=== PATIENT | male | born 1930 | race Caucasian/White ===

== ENCOUNTER → 2016-04-19 | Outpatient (CLI) | payer OTHER ==
[~2016-04-19] MED LIST: AGG PO; ALL300 PO; ALLO100T PO; AMLO2.5T PO; ATEN-173 PO; ATOR10TA82 PO; AVD5 PO; CILO100T PO; CILO50TA9 PO; DUTA0.5C PO; DUTA1CAP3 PO; ERGO1TAB10 PO; ERGO500037 PO; ESCI10TA17 PO; FURO-85 PO; GABA-113 PO; GABA1CAP4 PO; LPR25 PO; LPT10 PO; LSX20 PO; LXP10 PO; MAGN64TA4 PO; METO25TA56 PO; PANT40TA PO; POTA20TA11 PO; POTA20TA13 PO; PRLSR20 PO; PRT40 PO; SODI325T9 PO; SODIUM BICARBONATE PO; SUCR1TAB29 PO; TRMO115 TOP; VTMD PO
--- NOTE | 2016-04-19 14:58 | DIAGNOSTIC IMAGING REPORT ---
CHEST 2 VIEWS ROUTINE CLINICAL HISTORY: Cough. COMPARISON STUDY: Chest CT July 19, 2012. FINDINGS: Lung volumes are normal. There is no pneumothorax or pleural effusion. No consolidation is identified. Cardiomediastinal silhouette is normal. There is no evidence of pulmonary edema. IMPRESSION: No acute cardiopulmonary findings. Electronically signed by: Kristian Malone M.D. 04/19/2016 2:56 PM Dictated Date/Time: 04/19/2016 2:55 PM
[2016-04-19 17:39] LABS: BASO % 0.1 %; BASO ABS # 0.01 K/uL (0-0.2); COMPLETE YES; HEMATOCRIT 39.1 % (42-52); IG% 0.4 %; LYMPH % 4.4 %; LYMPH ABS # 0.42 K/uL (1.2-3.4); MEAN CELL VOLUME 100.5 fL (80-100); MEAN CORPUSCULAR HEMOGLOBIN 36.2 pg (25-34); MEAN CORPUSCULAR HGB CONC 36.1 g/dl (32-36); MEAN PLATELET VOLUME 10.3 fL (7.4-10.4); MONO % 5.4 %; NEUT % 89.7 %; PLATELET COUNT 210 K/uL (130-400); RED BLOOD COUNT 3.89 M/uL (4.7-6.1)
[2016-04-19 17:53] LABS: BLOOD UREA NITROGEN 56 mg/dl (7-18); BUN/CREATININE RATIO 18.7 (10-20); CALCIUM 8.8 mg/dl (8.5-10.1); CARBON DIOXIDE 13 mmol/L (21-32); CHLORIDE 112 mmol/L (98-107); GLUCOSE 149 mg/dl (70-99); SODIUM 137 mmol/L (136-145)
[2016-04-20 06:38] LABS: ESTIMATED AVERAGE GLUCOSE 131 mg/dl; HA1C FLAG Normal (Normal)
== END | disposition home or self-care (01) ==
LOC: C.LABPVFM 14:28
PROVIDERS: ATTEND Family Medicine
DX: R05 Cough (principal); E11.40 Type 2 diabetes mellitus with diabetic neuropathy, unspecified

== ENCOUNTER → 2016-06-02 | Outpatient (CLI) | payer OTHER ==
[~2016-06-02] MED LIST changes: -ATOR10TA82 PO; +ATOR10TA88 PO
[2016-06-02 13:02] LABS: HEMATOCRIT 36.6 % (42-52); MEAN CELL VOLUME 105.5 fL (80-100); MEAN CORPUSCULAR HEMOGLOBIN 35.2 pg (25-34); MEAN CORPUSCULAR HGB CONC 33.3 g/dl (32-36); MEAN PLATELET VOLUME 9.5 fL (7.4-10.4); PLATELET COUNT 159 K/uL (130-400); RED BLOOD COUNT 3.47 M/uL (4.7-6.1); WHITE BLOOD COUNT 5.41 K/uL (4.8-10.8)
[2016-06-02 13:06] LABS: URINE APPEARANCE CLEAR (CLEAR); URINE BILIRUBIN NEG (NEG); URINE COLOR YELLOW; URINE EPITHELIAL CELL AUTO 0-5 /lpf (0-5); URINE NITRITE NEG (NEG); URINE SPECIFIC GRAVITY 1.001 (1.000-1.030); UROBILINOGEN NEG (NEG)
[2016-06-02 13:07] LABS: MANUAL MICROSCOPIC REQUIRED? NO; REVIEW REQ? NO
[2016-06-02 13:13] LABS: BLOOD UREA NITROGEN 19 mg/dl (7-18); BUN/CREATININE RATIO 13.7 (10-20); CALCIUM 9.2 mg/dl (8.5-10.1); CARBON DIOXIDE 18 mmol/L (21-32); CHLORIDE 110 mmol/L (98-107); GLUCOSE 86 mg/dl (70-99); PHOSPHORUS 3.7 mg/dl (2.5-4.9); POTASSIUM 4.4 mmol/L (3.5-5.1); SODIUM 140 mmol/L (136-145)
[2016-06-02 13:15] LABS: FERRITIN 79.1 ng/ml (8.0-388.0)
[2016-06-02 13:25] LABS: URINE PROTIEN/CREAT RATIO 0.3 (0-0.2); URINE TOTAL PROTEIN 8.7 mg/dl (0-11.9)
== END | disposition home or self-care (01) ==
LOC: C.LABPVFM 06-01 14:02
PROVIDERS: ATTEND Internal Medicine Nephrology
DX: D64.9 Anemia, unspecified (principal); I10 Essential (primary) hypertension; N18.3 Chronic kidney disease, stage 3 (moderate); E55.9 Vitamin D deficiency, unspecified

== ENCOUNTER 2016-06-23 14:43 | Inpatient (IN) | payer OTHER ==
[~2016-06-23] VITALS: Ht 177.8 cm; Wt 81.7 kg
[~2016-06-23 14:43] MED LIST changes: -ALLO100T PO; -CILO100T PO; -DUTA0.5C PO; -DUTA1CAP3 PO; -ERGO500037 PO; -GABA1CAP4 PO; -LPR25 PO; -LPT10 PO; -LSX20 PO; -LXP10 PO; -MAGN64TA4 PO; -METO25TA56 PO; -PANT40TA PO; -POTA20TA13 PO; -PRLSR20 PO; -PRT40 PO; -SODI325T9 PO; -SUCR1TAB29 PO; -TRMO115 TOP; -VTMD PO
[2016-06-23 15:33] LABS: BASO % 0.2 %; BASO ABS # 0.02 K/uL (0-0.2); COMPLETE YES; EOS % 0.8 %; HEMATOCRIT 39.8 % (42-52); IG% 0.2 %; LYMPH % 5.5 %; LYMPH ABS # 0.51 K/uL (1.2-3.4); MEAN CELL VOLUME 103.9 fL (80-100); MEAN CORPUSCULAR HEMOGLOBIN 35.8 pg (25-34); MEAN CORPUSCULAR HGB CONC 34.4 g/dl (32-36); MEAN PLATELET VOLUME 9.9 fL (7.4-10.4); MONO % 10.3 %; PLATELET COUNT 142 K/uL (130-400); RED BLOOD COUNT 3.83 M/uL (4.7-6.1); WHITE BLOOD COUNT 9.22 K/uL (4.8-10.8)
[2016-06-23] MEDS ORDERED: DUTA0.5C PO (15:33)
[2016-06-23] MEDS ORDERED: SODI325T9 PO (15:33)
[2016-06-23] MEDS ORDERED: AGG PO (15:33)
[2016-06-23] MEDS ORDERED: CILO100T PO (15:33)
[2016-06-23] MEDS ORDERED: ERGO500037 PO (15:33)
[2016-06-23] MEDS ORDERED: ALL300 PO (15:33)
[2016-06-23] MEDS ORDERED: PRLSR20 PO (15:35)
[2016-06-23 15:48] LABS: PARTIAL THROMBOPLASTIN RATIO 1.2; PROTHROMBIN TIME (PATIENT) 10.6 SECONDS (9.0-12.0)
[2016-06-23 15:49] LABS: BUN/CREATININE RATIO 14.9 (10-20); CALCIUM 8.6 mg/dl (8.5-10.1); CREATININE 1.7 mg/dl (0.60-1.40); POTASSIUM 4.1 mmol/L (3.5-5.1)
--- NOTE | 2016-06-23 15:55 | DIAGNOSTIC IMAGING REPORT ---
CHEST ONE VIEW PORTABLE CLINICAL HISTORY: Atypical chest pain COMPARISON STUDY: No previous studies for comparison. FINDINGS: The patient has taken a suboptimal inspiration. The heart is at the upper limits of normal in size. There are bibasal airspace opacities, hypoventilatory versus inflammatory.[ No pleural effusions are visualized IMPRESSION: Bibasal airspace opacities, atelectatic versus inflammatory. Clinical and radiographic follow-up is recommended. Electronically signed by: Jorge Quintana M.D. 06/23/2016 3:54 PM Dictated Date/Time: 06/23/2016 3:53 PM
--- NOTE | 2016-06-23 16:52 | DIAGNOSTIC IMAGING REPORT ---
CHEST 2 VIEWS ROUTINE CLINICAL HISTORY: Chest pain. Possible pneumonia. COMPARISON STUDY: AP portable study dated 06/23/2016 FINDINGS: The cardiac and mediastinal contours are normal. The patient has taken a better inspiratory effort. There is been resolution of the bibasal airspace opacities. There is no focal pulmonary consolidation. There is no failure. There are no pleural effusions. The superior aspect of the aortic stent is visualized.[ IMPRESSION: No active disease in the chest. Electronically signed by: Jorge Quintana M.D. 06/23/2016 4:50 PM Dictated Date/Time: 06/23/2016 4:50 PM
--- NOTE | 2016-06-23 19:23 | EMERGENCY ROOM VISIT NOTE ---
History Report prepared by Radibjaciel: María Duron Under the Supervision of: Dr. Tyrone Newell M.D. First contact with patient: 15:01 Chief Complaint: CHEST PAIN Stated Complaint: CHEST PAIN Nursing Triage Summary: pt presents for eval of chest pain, now pain free. History of Present Illness The patient is a 86 year old male who presents to the Emergency Room with complaints of resolved chest pain that first occurred 2 nights ago. He was brought to the ED via EMS and is accompanied by family. He reports he experienced chest pain last night and the night before. The pain was located in the middle of his chest each time he experienced it and he describes it as feeling like "pressure". The patient states he woke up with the pain around 0900 this morning and it lasted until approximately 1200, so he decided to call an ambulance. He was given Aspirin in the field and reports it provided minor relief. He is pain free here in the ED. The patient has a history of diabetes and hypertension and is on daily medication for both conditions. He denies ever experiencing an SD in the past. He denies any current shortness of breath, abdominal pain or weakness or numbness in his arms or legs. He notes he has been fighting cold symptoms for approximately "4 months". He saw a local clinic recently and was given antibiotics and steroids, which have provided some relief. He still has the occasional cough and congestion. His primary care physician is located at [facility]. Source of History: patient Onset: 2 nights ago Position: chest Quality: pressure Timing: resolved Modifying Factors (Relieving): other (Aspirin) Associated Symptoms: + cough, No SOB, No abdominal pain, No numbness ( numbness in arms or legs), No weakness (weakness in arms or legs) Review of Systems See HPI for pertinent positives & negatives. A total of 10 systems reviewed and were otherwise negative. Past Medical & Surgical Medical Problems: (1) Benign essential hypertension (2) Carcinoma of colon (3) Diabetes mellitus type 2 (4) Gastroesophageal reflux disease (5) Glaucoma (6) Gout (7) Hyperlipidemia (8) Peripheral vascular disease Social History Smoking Status: Former Smoker Alcohol Use: none Drug Use: none Marital Status: Housing Status: lives with family Occupation Status: retired Current/Historical Medications Scheduled Amlodipine (Norvasc), 2.5 MG PO QAM Atenolol (Tenormin), 25 MG PO QAM Atorvastatin (Lipitor), 10 MG PO QAM Cilostazol (Pletal), 100 MG PO BID Dipyridamole/Aspirin (Aggrenox 25-200 mg), 1 CAP PO BID Dutasteride (Avodart), 0.5 MG PO QAM Ergocalciferol (Vitamin D 31769 Unit), 50,000 INTER.UNIT PO MONTHLY Escitalopram (Lexapro), 10 MG PO QAM Furosemide (Lasix), 20 MG PO 2XWK Gabapentin (Neurontin), 300 MG PO QPM Omeprazole (Prilosec), 20 MG PO BID Potassium Chloride Microencaps (Potassium Chloride Cr), 20 MEQ PO QAM Sodium Bicarbonate (Antacid) (Sodium Bicarbonate), 325 MG PO QAM Scheduled PRN Allopurinol (Allopurinol), 300 MG PO DAILY PRN for Gout Flare Up Allergies Coded Allergies: Amoxicillin (Verified Allergy, Severe, HIVES; ANGIOEDEMA, 04/04/15) Lisinopril (Verified Allergy, Mild, HIVES, 04/04/15) Penicillins (Verified Allergy, Mild, HIVES, 04/04/15) Physical Exam Vital Signs Date Time Temp Pulse Resp B/P Pulse Ox O2 Delivery O2 Flow Rate FiO2 06/23/16 19:09 89 06/23/16 18:10 86 18 156/79 97 Room Air 06/23/16 16:22 84 18 141/84 96 Room Air 06/23/16 15:02 91 06/23/16 14:51 36.4 92 18 125/65 98 Room Air Physical Exam Constitutional: Vital signs reviewed. Eyes: Pupils are equal round reactive to light. Conjunctiva are noninjected. ENT: Pharynx is clear without erythema or exudate. Mucous membranes are moist. Neck supple without meningeal signs. Respiratory: Clear to auscultation bilaterally. Breath sounds are equal bilaterally. Cardiovascular: Regular rate and rhythm. No rubs or gallops. GI: Soft, nondistended and nontender. Bowel sounds are present. Musculoskeletal: No peripheral edema. No lower extremity tenderness. Integumentary: No cyanosis. Neurological: The patient is awake and alert. No focal deficits. Psychiatric: Normal affect. Medical Decision & Procedures ER Provider Diagnostic Interpretation: These X-Rays were reviewed and interpreted by myself and the radiologist. CHEST ONE VIEW PORTABLE CLINICAL HISTORY: Atypical chest pain COMPARISON STUDY: No previous studies for comparison. FINDINGS: The patient has taken a suboptimal inspiration. The heart is at the upper limits of normal in size. There are bibasal airspace opacities, hypoventilatory versus inflammatory.[ No pleural effusions are visualized IMPRESSION: Bibasal airspace opacities, atelectatic versus inflammatory. Clinical and radiographic follow-up is recommended. Electronically signed by: Jorge Quintana M.D. 06/23/2016 3:54 PM CHEST 2 VIEWS ROUTINE CLINICAL HISTORY: Chest pain. Possible pneumonia. COMPARISON STUDY: AP portable study dated 06/23/2016 FINDINGS: The cardiac and mediastinal contours are normal. The patient has taken a better inspiratory effort. There is been resolution of the bibasal airspace opacities. There is no focal pulmonary consolidation. There is no failure. There are no pleural effusions. The superior aspect of the aortic stent is visualized. IMPRESSION: No active disease in the chest. Electronically signed by: Jorge Quintana M.D. 06/23/2016 4:50 PM Laboratory Results 06/23/16 15:00 Red Blood Count 3.83, Mean Corpuscular Volume 103.9, Mean Corpuscular Hemoglobin 35.8, Mean Corpuscular Hemoglobin Concent 34.4, Mean Platelet Volume 9.9, Neutrophils (%) (Auto) 83.0, Lymphocytes (%) (Auto) 5.5, Monocytes (%) ( Auto) 10.3, Eosinophils (%) (Auto) 0.8, Basophils (%) (Auto) 0.2, Neutrophils # (Auto) 7.65, Lymphocytes # (Auto) 0.51, Monocytes # (Auto) 0.95, Eosinophils # ( Auto) 0.07, Basophils # (Auto) 0.02 06/23/16 15:00 Test 06/23/16 15:00 06/23/16 15:31 06/23/16 17:40 White Blood Count 9.22 K/uL (4.8-10.8) Red Blood Count 3.83 M/uL (4.7-6.1) Hemoglobin 13.7 g/dL (14.0-18.0) Hematocrit 39.8 % (42-52) Mean Corpuscular Volume 103.9 fL (80-100) Mean Corpuscular Hemoglobin 35.8 pg (25-34) Mean Corpuscular Hemoglobin Concent 34.4 g/dl (32-36) Platelet Count 142 K/uL (130-400) Mean Platelet Volume 9.9 fL (7.4-10.4) Neutrophils (%) (Auto) 83.0 % Lymphocytes (%) (Auto) 5.5 % Monocytes (%) (Auto) 10.3 % Eosinophils (%) (Auto) 0.8 % Basophils (%) (Auto) 0.2 % Neutrophils # (Auto) 7.65 K/uL (1.4-6.5) Lymphocytes # (Auto) 0.51 K/uL (1.2-3.4) Monocytes # (Auto) 0.95 K/uL (0.11-0.59) Eosinophils # (Auto) 0.07 K/uL (0-0.5) Basophils # (Auto) 0.02 K/uL (0-0.2) RDW Standard Deviation 57.6 fL (36.4-46.3) RDW Coefficient of Variation 15.1 % (11.5-14.5) Immature Granulocyte % (Auto) 0.2 % Immature Granulocyte # (Auto) 0.02 K/uL (0.00-0.02) Prothrombin Time 10.6 SECONDS (9.0-12.0) Prothromb Time International Ratio 1.0 (0.9-1.1) Activated Partial Thromboplast Time 32.2 SECONDS (21.0-31.0) Partial Thromboplastin Ratio 1.2 Anion Gap 11.0 mmol/L (3-11) Est Creatinine Clear Calc Drug Dose 33.9 ml/min Estimated GFR () 41.7 Estimated GFR (Non- 36.0 BUN/Creatinine Ratio 14.9 (10-20) Calcium Level 8.6 mg/dl (8.5-10.1) Bedside Troponin I 0.000 ng/ml (0-0.045) Bedside Glucose 118 mg/dl (70-99) Laboratory results as reviewed by me. ECG Indication: chest pain Rate (beats per minute): 91 Rhythm: normal sinus Findings: no acute ischemic change, no ectopy ED Course 1503: The patient was evaluated in room C11. A complete history and physical exam was performed. 1610: I reevaluated the patient. He states he has no chest pain. I discussed his test results and recommended he remain in the hospital for further evaluation and management. He verbalized complete understanding and agreement. He does state he has a history of kidney issues and follows with Dr. Huizar in Nephrology. 1754: I discussed the patients case with Dr. Ferguson [facility] Hospitalist. The patient will be further evaluated. 1755: I updated the patient and let him know his second X-Ray is negative. Medical Decision This is an 86-year-old male who presents with chest pain. Differential diagnosis includes unstable angina, SD, GERD, pneumonia, pleurisy. I did perform a limited focused review of portions of the patient's old chart on the electronic medical record. The patient has had no recent pertinent visits to this hospital. I did evaluate the patient as noted above. IV access was established. The patient was placed on a continuous cardiac monitor technician. I did order and personally review the patient's 12-lead EKG and chest x-ray as described above. His 12- lead EKG does not demonstrate any acute ischemia. His chest x-ray was questionable for atelectasis versus inflammation. I did therefore repeat the chest x-ray and obtain PA and lateral films which showed no acute process. I did order and review the patient's blood work as noted in the electronic medical record. Troponin is negative. I did reassess the patient. He is having no complaints at this time. I did discuss the test results with him. I did recommend hospitalization for repeat cardiac enzymes and further evaluation. I did discuss the case with the hospitalist and employment case manager. Consults Time Called: 1615 Consulting Physician: Dr. Ferguson [facility] Hospitalist Returned Call: [phone] I discussed the patients case with Dr. Ferguson [facility] Hospitalist. The patient will be further evaluated. Impression Primary Impression: Acute chest pain Additional Impression: Elevated serum creatinine Scribe Attestation The scribe's documentation has been prepared under my direct and personally reviewed by me in its entirety. I confirm that the note above accurately reflects all work, treatment, procedures, and medical decision making performed by me. Departure Information Dispostion Being Evaluated By Hospitalist Referrals Dallas Jacobo M.D. (PCP) Patient Instructions My [facility] Problem Qualifiers
[2016-06-23] MEDS ORDERED: POLYETHYLENE (MIRALAX) 17 GM PACK PO PRN (19:45)
[2016-06-23] MEDS ORDERED: NITROGLYCERIN 0.4 MG SL PER TAB CHARGE SL PRN (19:45)
[2016-06-23] MEDS ORDERED: MAGNESIUM HYDROXIDE SUSP 30 ML UDC PO PRN (19:45)
[2016-06-23] MEDS ORDERED: ALLOPURINOL 300 MG TAB PO PRN (19:45)
[2016-06-23] MEDS ORDERED: MoRPHine SULFATE 2 MG/ML CARP IV PRN (19:45)
[2016-06-23] MEDS ORDERED: ALUMINUM/MAGNESIUM/SIMETH (MAALOX MAX) 30 ML UDC PO PRN (19:45)
[2016-06-23] MEDS ORDERED: ONDANSETRON INJ 2 MG/ML 2 ML VIAL IV PRN (19:45)
[2016-06-23] MEDS ORDERED: ACETAMINOPHEN 325 MG TAB PO PRN (19:45)
--- NOTE | 2016-06-23 20:09 | History and Physical ---
History & Physical Date & Time of Service: Jun 23, 2016 at 19:48 Chief Complaint: Chest Pain Primary Care Physician: Dallas Jacobo M.D. History of Present Illness Source: patient 86 y/o M w/Hx peripheral vascular disease, CKD 3, HTN, HPL. Presents with 2 episodes of central CP lasting 1-2 hours on subsequent evenings. Pt denies accompanying SOB, N/V, diaphoresis light-headedness or radiation of the pain. He denies a history of CAD/VA or angina. The pt also states that he has severe diarrhea for 2 days without abdominal pain although he suspected his CP may be more GI/epigastric in nature. He recently completed a course of Zithromax for a URI and states that he still has a persistent productive cough. He denies fevers. Past Medical/Surgical History Medical Problems: (1) Benign essential hypertension Status: Chronic (2) Carcinoma of colon Status: Chronic (3) Diabetes mellitus type 2 Status: Chronic (4) Gastroesophageal reflux disease Status: Chronic (5) Glaucoma Status: Chronic (6) Gout Status: Chronic (7) Hyperlipidemia Status: Chronic (8) Peripheral vascular disease Status: Chronic - history of femoral revascularization Family History Reviewed - noncontributory Social History Smoking Status: Former Smoker Alcohol Use: 2-3 beers daily Drug Use: none Marital Status: Housing status: lives alone Occupational Status: retired Immunizations History of Influenza Vaccine: Yes Influenza Vaccine Date: Feb 14, 2012 History of Tetanus Vaccine?: Yes Tetanus Immunization Date: Jun 30, 2012 History of Pneumococcal: Yes Pneumococcal Date: Jan 13, 2010 History of Hepatitis B Vaccine: No Multi-Drug Resistant Organisms History of MDRO: No Allergies Coded Allergies: Amoxicillin (Verified Allergy, Severe, HIVES; ANGIOEDEMA, 04/04/15) Lisinopril (Verified Allergy, Mild, HIVES, 04/04/15) Penicillins (Verified Allergy, Mild, HIVES, 04/04/15) Home Medications Scheduled Amlodipine (Norvasc), 2.5 MG PO QAM Atenolol (Tenormin), 25 MG PO QAM Atorvastatin (Lipitor), 10 MG PO QAM Cilostazol (Pletal), 100 MG PO BID Dipyridamole/Aspirin (Aggrenox 25-200 mg), 1 CAP PO BID Dutasteride (Avodart), 0.5 MG PO QAM Ergocalciferol (Vitamin D 10681 Unit), 50,000 INTER.UNIT PO MONTHLY Escitalopram (Lexapro), 10 MG PO QAM Furosemide (Lasix), 20 MG PO 2XWK Gabapentin (Neurontin), 300 MG PO QPM Omeprazole (Prilosec), 20 MG PO BID Potassium Chloride Microencaps (Potassium Chloride Cr), 20 MEQ PO QAM Sodium Bicarbonate (Antacid) (Sodium Bicarbonate), 325 MG PO QAM Scheduled PRN Allopurinol (Allopurinol), 300 MG PO DAILY PRN for Gout Flare Up Review of Systems Constitutional: No chills, No fever, No sweats Eyes: No eye pain, No worsening of vision ENT: No hearing loss, No nasal symptoms, No unusual epistaxis Respiratory: + cough, + sputum, No dyspnea at rest, No dyspnea on exertion, No shortness of breath, No wheezing Cardiovascular: + chest pain, No PND, No orthopnea Abdomen: + diarrhea, No nausea, No pain, No vomiting Musculoskeletal: No joint pain, No muscle pain Genitourinary - Male: No dysuria, No hematuria, No urinary frequency, No urinary urgency Neurologic: No memory loss, No paralysis, No weakness Psychiatric: No depression symptoms Endocrine: No fatigue Hematologic / Lymphatic: No abnormal bleeding/bruising Integumentary: No rash Allergic / Immunologic: No environmental allergies Physical Exam Vital Signs Date Time Temp Pulse Resp B/P Pulse Ox O2 Delivery O2 Flow Rate FiO2 06/23/16 19:43 83 18 151/72 98 Room Air 06/23/16 19:09 89 06/23/16 18:10 86 18 156/79 97 Room Air 06/23/16 16:22 84 18 141/84 96 Room Air 06/23/16 15:02 91 06/23/16 14:51 36.4 92 18 125/65 98 Room Air General Appearance: WD/WN, no apparent distress Head: normocephalic, atraumatic Eyes: normal inspection, PERRL, EOMI ENT: normal ENT inspection, hearing grossly normal, TMs normal, pharynx normal Neck: supple, no JVD Respiratory/Chest: chest non-tender, lungs clear, normal breath sounds, no respiratory distress, no accessory muscle use Cardiovascular: regular rate, rhythm, no edema, no gallop, no JVD, no murmur, normal peripheral pulses Abdomen/GI: normal bowel sounds, non tender, soft Back: normal inspection, no CVA tenderness Extremities/Musculoskelatal: no calf tenderness, + pedal edema, + pertinent finding (B/L edema and chronic skin changes present ) Neurologic/Psych: coil winder II-XII nml as tested, no motor/sensory deficits, alert, normal mood/affect, oriented x 3 Skin: + pertinent finding (erythema of lower extrems - chronic) Diagnostics Laboratory Results Results Past 24 Hours Test 06/23/16 15:00 06/23/16 15:31 06/23/16 17:40 Range/Units White Blood Count 9.22 4.8-10.8 K/uL Red Blood Count 3.83 4.7-6.1 M/uL Hemoglobin 13.7 14.0-18.0 g/dL Hematocrit 39.8 42-52 % Mean Corpuscular Volume 103.9 80-100 fL Mean Corpuscular Hemoglobin 35.8 25-34 pg Mean Corpuscular Hemoglobin Concent 34.4 32-36 g/dl Platelet Count 142 130-400 K/uL Mean Platelet Volume 9.9 7.4-10.4 fL Neutrophils (%) (Auto) 83.0 % Lymphocytes (%) (Auto) 5.5 % Monocytes (%) (Auto) 10.3 % Eosinophils (%) (Auto) 0.8 % Basophils (%) (Auto) 0.2 % Neutrophils # (Auto) 7.65 1.4-6.5 K/uL Lymphocytes # (Auto) 0.51 1.2-3.4 K/uL Monocytes # (Auto) 0.95 0.11-0.59 K/uL Eosinophils # (Auto) 0.07 0-0.5 K/uL Basophils # (Auto) 0.02 0-0.2 K/uL RDW Standard Deviation 57.6 36.4-46.3 fL RDW Coefficient of Variation 15.1 11.5-14.5 % Immature Granulocyte % (Auto) 0.2 % Immature Granulocyte # (Auto) 0.02 0.00-0.02 K/uL Prothrombin Time 10.6 9.0-12.0 SECONDS Prothromb Time International Ratio 1.0 0.9-1.1 Activated Partial Thromboplast Time 32.2 21.0-31.0 SECONDS Partial Thromboplastin Ratio 1.2 Sodium Level 142 136-145 mmol/L Potassium Level 4.1 3.5-5.1 mmol/L Chloride Level 115 98-107 mmol/L Carbon Dioxide Level 16 21-32 mmol/L Anion Gap 11.0 3-11 mmol/L Blood Urea Nitrogen 25 7-18 mg/dl Creatinine 1.70 0.60-1.40 mg/dl Est Creatinine Clear Calc Drug Dose 33.9 ml/min Estimated GFR () 41.7 Estimated GFR (Non- 36.0 BUN/Creatinine Ratio 14.9 10-20 Random Glucose 122 70-99 mg/dl Calcium Level 8.6 8.5-10.1 mg/dl Bedside Troponin I 0.000 0-0.045 ng/ml Bedside Glucose 118 70-99 mg/dl CXR normal EKG NSR - L axis Impression Assessment and Plan 86 y/o M w/Hx peripheral vascular disease, CKD 3, HTN, HPL. Presents with 2 episodes of central CP lasting 1-2 hours on subsequent evenings. Pt denies accompanying SOB, N/V, diaphoresis light-headedness or radiation of the pain. He denies a history of CAD/VA or angina. The pt also states that he has severe diarrhea for 2 days without abdominal pain although he suspected his CP may be more GI/epigastric in nature. He recently completed a course of Zithromax for a URI and states that he still has a persistent productive cough. He denies fevers. 1) CP - EKG and trop initial WNL - trop x 3 - monitor on telemetry - cont ASA, Statin, B toñito - will also treat for GERD - can be referred for outpt stress if rules out as he likely has come CAD considering his peripheral disease. 2) CKD - creat is stable 3) HTN - Cont Atenolol 4) Diarrhea - recently completed an antibiotic course so we will obtain a C- diff toxin study 5) PVD - cont Pletal, ASA, statin Full code - heparin prophylaxis Total time for this admit including review of labs, meds, EKG, records - discussion with pt and ER attending - 33 min Level of Care Telemetry Resuscitation Status FULL RESUSCITATION VTE Prophylaxis VTE Risk Assessment Done? Y/N: Yes Risk Level: Moderate Given or contraindicated: Unfractionated heparin SQ
[2016-06-23] MEDS ORDERED: IV FLUIDS COMPLETED PRN (20:15)
[2016-06-23] MEDS ORDERED: FAMOTIDINE 20 MG TAB PO ONE (21:00)
[2016-06-23 21:12] VITALS: BP 162/69; PULSE 84; TEMP 36.5; O2SAT 96; Ht 177.8 cm; Wt 81.7 kg
[2016-06-23] MEDS: CILOSTAZOL 100 MG TAB PO SCH (21:52)
[2016-06-23] MEDS: DIPYRIDAMOLE/ASPIRIN CAP PO SCH (21:52)
[2016-06-23] MEDS: GABAPENTIN 300 MG CAP PO SCH (21:53)
[2016-06-23] MEDS: PANTOprazole SOD 40 MG TAB PO SCH (21:53)
[2016-06-23] MEDS: HEPARIN SOD 5000 UNIT/0.5 ML CARP SQ SCH (21:54)
[2016-06-23 23:20] VITALS: BP 155/77; PULSE 90; TEMP 36.6; O2SAT 97
[2016-06-24] VITALS (12 sets, daily range): BP systolic 94–162; BP diastolic 52–86; PULSE 67–86; TEMP 36.3–37.1; O2SAT 95–98
[2016-06-24] MEDS: HEPARIN SOD 5000 UNIT/0.5 ML CARP SQ SCH ×3 (06:16→22:05)
[2016-06-24] MEDS: DIPYRIDAMOLE/ASPIRIN CAP PO SCH ×2 (08:35→20:35)
[2016-06-24] MEDS: PANTOprazole SOD 40 MG TAB PO SCH ×2 (08:35→20:35)
[2016-06-24] MEDS: SODIUM BICARBONATE 650 MG TAB PO SCH (08:36)
[2016-06-24] MEDS: ASPIRIN 81 MG ECTAB PO SCH (08:37)
[2016-06-24] MEDS: CILOSTAZOL 100 MG TAB PO SCH ×2 (08:37→20:36)
[2016-06-24] MEDS: FAMOTIDINE 20 MG TAB PO SCH (08:37)
[2016-06-24] MEDS: ATORVASTATIN 10 MG TAB PO SCH (08:38)
[2016-06-24] MEDS: ESCITALOPRAM OXALATE 10 MG TAB PO SCH (08:38)
[2016-06-24] MEDS: POTASSIUM CHLORIDE 20 MEQ TABCR PO SCH (08:38)
[2016-06-24] MEDS: AMLODIPINE BESYLATE 5 MG TAB PO SCH (08:38)
--- NOTE | 2016-06-24 08:53 | Cardiology Consultation ---
Cardiology Consultation Date of Consultation: Jun 24, 2016. Requesting Physician: Dr. Gaitan Reason for Consultation: AV block Pt evaluation today including: conversation w/ patient, physical exam, lab review, review of studies, review of inpatient medication list History of Present Illness This is an 86-year-old male who has a history of colon cancer, peripheral vascular disease as well as hypertension and presented with chest discomfort. He does not have a history of known coronary artery disease. He describes 2 nights in a row having chest discomfort occurring while in bed, he describes a substernal chest heaviness and pressure lasting a total of about 3 hours prior to admission. He has not had these symptoms before and does not get them with exertion. Cardiac enzymes 2 here are negative. He was observed on telemetry to have periods of second degree AV block. He does take atenolol 25 mg daily at home and is on it here, as well as amlodipine. I discussed symptoms of bradycardia with him and he does describe momentary lightheadedness at times, this is been going on for some time and could represent transient AV block. He has never had presyncope or syncope and these are quite brief. He also describes orthostatic symptoms, when he stands up he gets a little bit lightheaded and has to stand still for a moment to get his bearings. He also uses a walker following his colon surgery. Past Medical/Surgical History (1) Benign essential hypertension (2) Diabetes mellitus type 2 (3) Gastroesophageal reflux disease (4) Hyperlipidemia (5) Lower gastrointestinal hemorrhage (6) Glaucoma (7) Gout (8) Peripheral vascular disease (9) Carcinoma of colon Social History Smoking Status: Never Smoker History of Alcohol Use: Yes (2-3 beers/day) Review of Systems Constitutional: No fever, No weakness, No weight loss Respiratory: No cough, No dyspnea on exertion, No shortness of breath, No wheezing Cardiac: + chest pain, + problem reported (transient lightheadedness, orthostatic symptoms), + see HPI, No PND, No edema, No orthopnea, No palpitations Abdomen: No GI bleeding, No diarrhea, No nausea, No pain, No vomiting Male : No nocturia more than once/night, No sexual dysfunction, No slowing stream, No urinary frequency Neurologic: No balance problems, No numbness/tingling, No paralysis, No weakness Heme: No abnormal bleeding/bruising, No clotting problems Endo: No fatigue Skin: No problem reported All Other Systems: Reviewed and Negative Allergies Coded Allergies: Amoxicillin (Verified Allergy, Severe, HIVES; ANGIOEDEMA, 04/04/15) Lisinopril (Verified Allergy, Mild, HIVES, 04/04/15) Penicillins (Verified Allergy, Mild, HIVES, 04/04/15) Medications Current Inpatient Medications Medications (Trade) Dose Ordered Sig/Hugo Route Start Time Stop Time Status Last Admin Dose Admin Allopurinol (Zyloprim Tab) 300 mg DAILY PRN PO 06/23/16 19:45 07/23/16 19:44 Amlodipine Besylate (Norvasc Tab) 2.5 mg QAM PO 06/24/16 09:00 07/24/16 08:59 Atenolol (Tenormin Tab) 25 mg QAM PO 06/24/16 09:00 07/24/16 08:59 Atorvastatin Calcium (Lipitor Tab) 10 mg QAM PO 06/24/16 09:00 07/24/16 08:59 Dipyridamole/ Aspirin (Aggrenox 200MG/ 25MG Cap) 1 cap BID PO 06/23/16 21:00 07/23/16 20:59 06/23/16 21:52 1 CAP Escitalopram Oxalate (Lexapro Tab) 10 mg QAM PO 06/24/16 09:00 07/24/16 08:59 Gabapentin (Neurontin Cap) 300 mg QPM PO 06/23/16 21:00 07/23/16 20:59 06/23/16 21:53 300 MG Potassium Chloride (Klor-Con Tab) 20 meq QAM PO 06/24/16 09:00 07/24/16 08:59 Miscellaneous Information (Order Awaiting Action) 1 ea QS N/A 06/24/16 00:00 07/24/16 00:00 Pantoprazole Sodium (Protonix Tab) 40 mg BID PO 06/23/16 21:00 07/23/16 20:59 06/23/16 21:53 40 MG Sodium Bicarbonate (Sodium Bicarbonate Tab) 325 mg QAM PO 06/24/16 09:00 07/24/16 08:59 Heparin Sodium (Porcine) (Heparin Sq 5000 Unit/0.5ml) 5,000 unit Q8 SQ 06/23/16 22:00 07/23/16 21:59 06/24/16 06:16 5,000 UNIT Acetaminophen (Tylenol Tab) 650 mg Q4H PRN PO 06/23/16 19:45 07/23/16 19:44 Al Hydrox/Mg Hydrox/Simethicone (Maalox Max Susp) 15 ml Q4H PRN PO 06/23/16 19:45 07/23/16 19:44 Magnesium Hydroxide (Milk Of Magnesia Susp) 30 ml Q12H PRN PO 06/23/16 19:45 07/23/16 19:44 Ondansetron HCl (Zofran Inj) 4 mg Q6H PRN IV 06/23/16 19:45 07/23/16 19:44 Nitroglycerin (Nitrostat Tab) 0.4 mg UD PRN SL 06/23/16 19:45 07/23/16 19:44 Morphine Sulfate (MoRPHine SULFATE INJ) 2 mg Q30M PRN IV 06/23/16 19:45 07/07/16 19:44 Polyethylene (Miralax Powder Packet) 17 gm DAILY PRN PO 06/23/16 19:45 07/23/16 19:44 Miscellaneous (Iv Fluids Completed) 1 ea PRN PRN N/A 06/23/16 20:15 06/23/17 20:14 Cilostazol (Pletal Tab) 100 mg BID PO 06/23/16 21:00 07/23/16 20:59 06/23/16 21:52 100 MG Famotidine (Pepcid Tab) 20 mg QAM PO 06/24/16 09:00 07/24/16 08:59 Aspirin (Ecotrin Tab) 81 mg DAILY PO 06/24/16 09:00 07/24/16 08:59 Physical Exam Vital Signs Past 12 Hours Date Time Temp Pulse Resp B/P Pulse Ox O2 Delivery O2 Flow Rate FiO2 06/24/16 07:50 37.1 86 17 161/86 96 Room Air 06/24/16 05:26 36.8 80 18 135/66 96 Room Air 06/24/16 04:15 96 Room Air 06/24/16 00:00 96 Room Air 06/23/16 23:20 36.6 90 20 155/77 97 Room Air 06/23/16 21:12 36.5 84 18 162/69 96 Room Air Constitutional: General Apperance: heathly-appearing Level of Distress: NAD Psychiatric: Mental Status: active & alert Head: normocephalic Eyes: EOM: EOMI ENMT: normal ENT inspection, hearing grossly normal Neck: supple, no masses Lungs: Respiratory effort: no dyspnea, good air movement Auscultation: breath sounds normal, no wheezing Cardiovascular: Heart Auscultation: RRR, no murmurs, no rubs, no gallops Peripheral Pulses: Bruits: none appreciated Abdomen: Bowel Sounds: normal Inspection & Palpation: soft, no tenderness, guarding & rebound, no masses Musculoskeletal: normal strength (5/5 throughout) Extremities: no edema Neurologic: Cranial Nerves: grossly intact Sensation: grossly intact Data Laboratory Results: Last 24 Hours Test 06/23/16 15:00 06/23/16 15:31 06/23/16 17:40 06/23/16 23:05 White Blood Count 9.22 K/uL Red Blood Count 3.83 M/uL Hemoglobin 13.7 g/dL Hematocrit 39.8 % Mean Corpuscular Volume 103.9 fL Mean Corpuscular Hemoglobin 35.8 pg Mean Corpuscular Hemoglobin Concent 34.4 g/dl Platelet Count 142 K/uL Mean Platelet Volume 9.9 fL Neutrophils (%) (Auto) 83.0 % Lymphocytes (%) (Auto) 5.5 % Monocytes (%) (Auto) 10.3 % Eosinophils (%) (Auto) 0.8 % Basophils (%) (Auto) 0.2 % Neutrophils # (Auto) 7.65 K/uL Lymphocytes # (Auto) 0.51 K/uL Monocytes # (Auto) 0.95 K/uL Eosinophils # (Auto) 0.07 K/uL Basophils # (Auto) 0.02 K/uL RDW Standard Deviation 57.6 fL RDW Coefficient of Variation 15.1 % Immature Granulocyte % (Auto) 0.2 % Immature Granulocyte # (Auto) 0.02 K/uL Prothrombin Time 10.6 SECONDS Prothromb Time International Ratio 1.0 Activated Partial Thromboplast Time 32.2 SECONDS Partial Thromboplastin Ratio 1.2 Sodium Level 142 mmol/L Potassium Level 4.1 mmol/L Chloride Level 115 mmol/L Carbon Dioxide Level 16 mmol/L Anion Gap 11.0 mmol/L Blood Urea Nitrogen 25 mg/dl Creatinine 1.70 mg/dl Est Creatinine Clear Calc Drug Dose 33.9 ml/min Estimated GFR () 41.7 Estimated GFR (Non- 36.0 BUN/Creatinine Ratio 14.9 Random Glucose 122 mg/dl Calcium Level 8.6 mg/dl Bedside Troponin I 0.000 ng/ml Bedside Glucose 118 mg/dl Troponin I < 0.015 ng/ml Test 06/24/16 05:10 Troponin I < 0.015 ng/ml EKG: Sinus rhythm with first-degree AV block. Telemetry reviewed: Sinus rhythm with 2 episodes of 2-1 AV block, this may be AV sonja although I do not see other Wenkebach second degree AV block therefore it is possible this represents Mobitz 2 AV block. No significant pauses or severe bradycardia. Assessment & Plan #1. Chest discomfort: Although the description of his chest discomfort is compatible with myocardial ischemia the duration and mode of onset (occurring at night) with no evidence of electrocardiographic or chemical findings to suggest ischemia I suspect this is not cardiac in nature. Possibly gastrointestinal. I would continue to observe without invasive evaluation. We could do a stress test but that may be misleading. #2. Second degree AV block: Twice on telemetry monitoring he had periods of 2-1 AV block. He does a baseline first degree AV block on electrocardiography. This is consistent with AV sonja conduction disease, although I'm not sure it is symptomatic but he does have momentary lightheadedness at times but also has orthostatic symptoms. I would like to discontinue his beta toñito (he has no clear indication for it with negative cardiac enzymes). Amlodipine can do this, and if he continues to do it on amlodipine we may want to consider discontinuing that but he needs treatment for his hypertension. It is possible he will need a pacemaker but I'm not sure at this time that it is indicated. If his AV block resolves and he continues to have momentary lightheadedness we probably need to perform some type of penitentiary monitoring to see if the symptoms are due to AV block, if so he should have a pacemaker. This may be done as an outpatient if his AV block resolves here. #3. Hypertension: He will need treatment for his hypertension I would recommend vasodilators. Amlodipine can be used but can cause AV block under certain conditions. If his AV block continues off of beta-blockade I would recommend trying to substitute something else for the amlodipine. He describes orthostatic symptoms by don't know that we have documented orthostatic hypotension. For the moment perhaps doing better let his blood pressure running a little bit high until this is sorted out. Thank you for allowing me to participate in his care.
--- NOTE | 2016-06-24 11:12 | Progress Note ---
Subjective Date of Service: Jun 24, 2016. Subjective Pt evaluation today including: conversation w/ patient, physical exam, chart review, lab review, review of studies, review of inpatient medication list Pain: Lying comfortably in Bed w/o pain Voiding: no voiding problems Pt is seen and examined by me. pt c/o lightheadedness on walking w/o palpitation , Cp, SOB. Pt has a episode of bradycardia with questionable symptoms last night. Per pt no symptoms, he was able to go to bath room w/o any difficulties.Pt denies fever, chills, rigors and sweats. pt has 1-2 episode of diarrhea, denies abdominal pain and urinary symptoms.Pt denies blurry vision and headache.pt denies any blood in the stool. Good appetite and sleep. Problem List Medical Problems: (1) Acute chest pain Status: Acute (2) Elevated serum creatinine Status: Acute (3) Diarrhea Status: Acute (4) Heart Block status: Acute (5) Benign essential hypertension Status: Chronic (6) Carcinoma of colon Status: Chronic (7) Diabetes mellitus type 2 Status: Chronic (8) Gastroesophageal reflux disease Status: Chronic (9) Glaucoma Status: Chronic (10) Gout Status: Chronic (11) Hyperlipidemia Status: Chronic (12) Peripheral vascular disease Status: Chronic - history of femoral revascularization Review of Systems Cardiac: + problem reported (lightheadness) Abdomen: + diarrhea All Other Systems: Reviewed and Negative Medications Medications (Trade) Dose Ordered Sig/Hugo Route Start Time Stop Time Status Last Admin Dose Admin Amlodipine Besylate (Norvasc Tab) 2.5 mg QAM PO 06/24/16 09:00 07/24/16 08:59 06/24/16 08:38 2.5 MG Atorvastatin Calcium (Lipitor Tab) 10 mg QAM PO 06/24/16 09:00 07/24/16 08:59 06/24/16 08:38 10 MG Dipyridamole/ Aspirin (Aggrenox 200MG/ 25MG Cap) 1 cap BID PO 06/23/16 21:00 07/23/16 20:59 06/24/16 08:35 1 CAP Escitalopram Oxalate (Lexapro Tab) 10 mg QAM PO 06/24/16 09:00 07/24/16 08:59 06/24/16 08:38 10 MG Gabapentin (Neurontin Cap) 300 mg QPM PO 06/23/16 21:00 07/23/16 20:59 06/23/16 21:53 300 MG Potassium Chloride (Klor-Con Tab) 20 meq QAM PO 06/24/16 09:00 07/24/16 08:59 06/24/16 08:38 20 MEQ Pantoprazole Sodium (Protonix Tab) 40 mg BID PO 06/23/16 21:00 07/23/16 20:59 06/24/16 08:35 40 MG Sodium Bicarbonate (Sodium Bicarbonate Tab) 325 mg QAM PO 06/24/16 09:00 07/24/16 08:59 06/24/16 08:36 325 MG Heparin Sodium (Porcine) (Heparin Sq 5000 Unit/0.5ml) 5,000 unit Q8 SQ 06/23/16 22:00 07/23/16 21:59 06/24/16 06:16 5,000 UNIT Cilostazol (Pletal Tab) 100 mg BID PO 06/23/16 21:00 07/23/16 20:59 06/24/16 08:37 100 MG Famotidine (Pepcid Tab) 20 mg 2100 ONCE PO 06/23/16 21:00 06/23/16 21:01 DC 06/23/16 20:41 20 MG Famotidine (Pepcid Tab) 20 mg QAM PO 06/24/16 09:00 07/24/16 08:59 06/24/16 08:37 20 MG Aspirin (Ecotrin Tab) 81 mg DAILY PO 06/24/16 09:00 07/24/16 08:59 06/24/16 08:37 81 MG Objective Vital Signs Date Time Temp Pulse Resp B/P Pulse Ox O2 Delivery O2 Flow Rate FiO2 06/24/16 08:00 96 Room Air 06/24/16 07:50 37.1 86 17 161/86 96 Room Air 06/24/16 05:26 36.8 80 18 135/66 96 Room Air 06/24/16 04:15 96 Room Air 06/24/16 00:00 96 Room Air 06/23/16 23:20 36.6 90 20 155/77 97 Room Air 06/23/16 21:12 36.5 84 18 162/69 96 Room Air 06/23/16 20:07 36.4 83 18 151/72 98 06/23/16 19:43 83 18 151/72 98 Room Air 06/23/16 19:09 89 06/23/16 18:10 86 18 156/79 97 Room Air 06/23/16 16:22 84 18 141/84 96 Room Air 06/23/16 15:02 91 06/23/16 14:51 36.4 92 18 125/65 98 Room Air Physical Exam General Appearance: no apparent distress Eyes: EOMI Neck: supple, no adenopathy, no JVD Respiratory/Chest: chest non-tender, lungs clear, normal breath sounds, no respiratory distress, no accessory muscle use Cardiovascular: regular rate, rhythm, no edema Abdomen: normal bowel sounds, non tender, soft Extremities: normal range of motion Neurologic/Psychiatric: alert, normal mood/affect, oriented x 3 Skin: normal color, no rash Laboratory Results Last 24 Hours Test 06/23/16 15:00 06/23/16 15:31 06/23/16 17:40 06/23/16 23:05 White Blood Count 9.22 K/uL Red Blood Count 3.83 M/uL Hemoglobin 13.7 g/dL Hematocrit 39.8 % Mean Corpuscular Volume 103.9 fL Mean Corpuscular Hemoglobin 35.8 pg Mean Corpuscular Hemoglobin Concent 34.4 g/dl Platelet Count 142 K/uL Mean Platelet Volume 9.9 fL Neutrophils (%) (Auto) 83.0 % Lymphocytes (%) (Auto) 5.5 % Monocytes (%) (Auto) 10.3 % Eosinophils (%) (Auto) 0.8 % Basophils (%) (Auto) 0.2 % Neutrophils # (Auto) 7.65 K/uL Lymphocytes # (Auto) 0.51 K/uL Monocytes # (Auto) 0.95 K/uL Eosinophils # (Auto) 0.07 K/uL Basophils # (Auto) 0.02 K/uL RDW Standard Deviation 57.6 fL RDW Coefficient of Variation 15.1 % Immature Granulocyte % (Auto) 0.2 % Immature Granulocyte # (Auto) 0.02 K/uL Prothrombin Time 10.6 SECONDS Prothromb Time International Ratio 1.0 Activated Partial Thromboplast Time 32.2 SECONDS Partial Thromboplastin Ratio 1.2 Sodium Level 142 mmol/L Potassium Level 4.1 mmol/L Chloride Level 115 mmol/L Carbon Dioxide Level 16 mmol/L Anion Gap 11.0 mmol/L Blood Urea Nitrogen 25 mg/dl Creatinine 1.70 mg/dl Est Creatinine Clear Calc Drug Dose 33.9 ml/min Estimated GFR () 41.7 Estimated GFR (Non- 36.0 BUN/Creatinine Ratio 14.9 Random Glucose 122 mg/dl Calcium Level 8.6 mg/dl Bedside Troponin I 0.000 ng/ml Bedside Glucose 118 mg/dl Troponin I < 0.015 ng/ml Test 06/24/16 05:10 Troponin I < 0.015 ng/ml Assessment and Plan 1) CP vs Chest discomfort - EKG and trop so far negative, cardiology on board, not doing invasive testing at present.- cont ASA, Statin, B toñito held because of Heart block, cont Gi prophylaxis to treat for GERD causing chest discomfort. 2) Second degree AV block: Twice on telemetry monitoring he had periods of 2-1 AV block. Cont to monitor for now. possible pacemaker if remains symptomatic. Follow cardiology. Held BB per Cardiology. 3) CKD - creat is stable at 1.7 4) HTN - Fairly controlled. Continue amlodipine for now. 5) Diarrhea - Recently completed an antibiotic course so we will obtain a C- diff toxin study to rule out c -diff colitis 6) PVD - cont Plavix, ASA, statin Full code - heparin prophylaxis I spent altogether 30min with pt. Continued [facility] stay due to: other (heart block ) Discharge planning: home
[2016-06-24] MEDS: GABAPENTIN 300 MG CAP PO SCH (20:35)
[2016-06-25] VITALS (11 sets, daily range): BP systolic 121–165; BP diastolic 51–81; PULSE 77–92; TEMP 36.3–36.7; O2SAT 95–97
[2016-06-25] MEDS: HEPARIN SOD 5000 UNIT/0.5 ML CARP SQ SCH ×3 (06:15→21:34)
[2016-06-25] MEDS: DIPYRIDAMOLE/ASPIRIN CAP PO SCH ×2 (08:22→21:28)
[2016-06-25] MEDS: POTASSIUM CHLORIDE 20 MEQ TABCR PO SCH (08:22)
[2016-06-25] MEDS: SODIUM BICARBONATE 650 MG TAB PO SCH (08:22)
[2016-06-25] MEDS: ESCITALOPRAM OXALATE 10 MG TAB PO SCH (08:22)
[2016-06-25] MEDS: AMLODIPINE BESYLATE 5 MG TAB PO SCH (08:23)
[2016-06-25] MEDS: PANTOprazole SOD 40 MG TAB PO SCH ×3 (08:23→21:28)
[2016-06-25] MEDS: ATORVASTATIN 10 MG TAB PO SCH (08:23)
[2016-06-25] MEDS: FAMOTIDINE 20 MG TAB PO SCH (08:23)
[2016-06-25] MEDS: CILOSTAZOL 100 MG TAB PO SCH ×3 (08:24→21:28)
[2016-06-25] MEDS: ASPIRIN 81 MG ECTAB PO SCH (08:24)
--- NOTE | 2016-06-25 11:17 | Cardiology Follow-Up ---
Subjective Date of Service: Jun 25, 2016. Pt evaluation today including: conversation w/ patient, conversation w/ family , physical exam, lab review, review of studies, review of inpatient medication list History of Present Illness This is an 86-year-old male who has a history of colon cancer, peripheral vascular disease as well as hypertension and presented with chest discomfort. He does not have a history of known coronary artery disease. He describes 2 nights in a row having chest discomfort occurring while in bed, he describes a substernal chest heaviness and pressure lasting a total of about 3 hours prior to admission. He has not had these symptoms before and does not get them with exertion. Cardiac enzymes 2 here are negative. He was observed on telemetry to have periods of second degree AV block on the evening of 06/23/2016. He does take atenolol 25 mg daily at home and was on it here, as well as amlodipine. I discussed symptoms of bradycardia with him and he does describe momentary lightheadedness at times, this is been going on for some time and could represent transient AV block. He has never had presyncope or syncope and these are quite brief. He also describes orthostatic symptoms, when he stands up he gets a little bit lightheaded and has to stand still for a moment to get his bearings. He also uses a walker following his colon surgery. I discontinued his atenolol. Today he feels well, he has had no further chest discomfort and no lightheadedness or dizziness. Social History Smoking Status: Never Smoker History of Alcohol Use: Yes (2-3 beers/day) Review of Systems Respiratory: No cough, No dyspnea on exertion, No shortness of breath, No wheezing Cardiac: + problem reported (lightheadness), No chest pain Medications Cardiovascular: Item Value Date Time Amlodipine 2.5 mg 06/24/16 0900 Besylate QAM/PO 06/25/16 0823 (Norvasc Tab) Atorvastatin 10 mg 06/24/16 0900 Calcium QAM/PO 06/25/16 0823 (Lipitor Tab) Potassium Chloride 20 meq 06/24/16 09 (Klor-Con Tab) QAM/PO 06/25/16 0822 Aspirin 81 mg 06/24/16 0900 (Ecotrin Tab) DAILY/PO 06/25/16 0824 Dipyridamole/ 1 cap 06/23/16 2100 Aspirin BID/PO 06/25/16 0822 (Aggrenox 200MG/ 25MG Cap) Objective Vital Signs Past 12 Hours Date Time Temp Pulse Resp B/P Pulse Ox O2 Delivery O2 Flow Rate FiO2 06/25/16 10:58 36.7 84 18 131/55 95 Room Air 88 121/51 92 122/52 06/25/16 07:30 36.6 78 18 126/56 97 Room Air 06/25/16 04:00 Room Air 06/25/16 03:47 36.3 84 18 160/81 97 Room Air 06/25/16 00:33 96 Room Air Last Recorded Weight-Kilograms: 81.000 Intake & Output 8-Hour Column 06/24/16 06/24/16 06/25/16 15:59 23:59 07:59 Intake Total 895 ml 500 ml Balance 895 ml 500 ml 24-Hour Column 06/25/16 07:59 Intake Total 1395 ml Balance 1395 ml Physical Exam Constitutional: General Apperance: heathly-appearing Level of Distress: NAD Lungs: Respiratory effort: no dyspnea, good air movement Auscultation: breath sounds normal, no wheezing Cardiovascular: Heart Auscultation: RRR, no murmurs, no rubs, no gallops Peripheral Pulses: Bruits: none appreciated Extremities: no edema Data Telemetry reviewed: Sinus rhythm, no further AV block overnight Assessment and Plan #1. Chest discomfort: Although the description of his chest discomfort is compatible with myocardial ischemia the duration and mode of onset (occurring at night) with no evidence of electrocardiographic or chemical findings to suggest ischemia I suspect this is not cardiac in nature. Possibly gastrointestinal. I would continue to observe without invasive evaluation. We could do a stress test but that may be misleading. He has had none in the past 24 hours. #2. Second degree AV block: Twice on telemetry monitoring overnight on 2016 he had periods of 2-1 AV block. He does a baseline first degree AV block on electrocardiography. This is consistent with AV sonja conduction disease, although I'm not sure it is symptomatic but he does have momentary lightheadedness at times but also has orthostatic symptoms. I did discontinue his beta toñito (he has no clear indication for it with negative cardiac enzymes). He has had no further AV block since discontinuation of his atenolol. Amlodipine can also cause AV block although it is less common, and if he continues to have AV block on amlodipine we may want to consider discontinuing that but he needs treatment for his hypertension. It is possible he will need a pacemaker but at this time it is not indicated. If he continues to have momentary lightheadedness we probably need to perform some type of residential monitoring to see if the symptoms are due to AV block, if so he should have a pacemaker. This may be done as an outpatient if he continues to have momentary lightheadedness. #3. Hypertension: He will need treatment for his hypertension I would recommend vasodilators. Amlodipine can be used but can cause AV block under certain conditions, so far he has had no further AV block off of a blockade. If his AV block continues off of beta-blockade I would recommend trying to substitute something else for the amlodipine. He describes orthostatic symptoms by don't know that we have documented orthostatic hypotension. For the moment perhaps it would be better to let his blood pressure run a little bit high until this is sorted out. Thank you for allowing me to participate in his care.
--- NOTE | 2016-06-25 12:30 | Hospitalist Progress Note ---
Hospitalist Progress Note Date of Service Jun 25, 2016. Subjective Pt evaluation today including: conversation w/ patient, physical exam, chart review, lab review, review of studies, review of inpatient medication list Voiding: no voiding problems, no incontinence Patient states he is feeling well. He denies any chest discomfort since admission. Chest discomfort occurred at night, prior to bed. He has been eating and drinking OK. Patient denies any fever, chills, sweats, lightheadedness, dizziness, vision changes, CP, palpitations, edema, SOB, wheezing, cough, abdominal pain, nausea, vomiting, diarrhea, urinary symptoms, melena, numbness/ tingling, weakness, muscle/joint pain, anxiety/depression, active bleeding, or new skin discoloration/changes. Medications Current Inpatient Medications Medications (Trade) Dose Ordered Sig/Hugo Route Start Time Stop Time Status Last Admin Dose Admin Allopurinol (Zyloprim Tab) 300 mg DAILY PRN PO 06/23/16 19:45 07/23/16 19:44 Amlodipine Besylate (Norvasc Tab) 2.5 mg QAM PO 06/24/16 09:00 07/24/16 08:59 06/25/16 08:23 2.5 MG Atorvastatin Calcium (Lipitor Tab) 10 mg QAM PO 06/24/16 09:00 07/24/16 08:59 06/25/16 08:23 10 MG Dipyridamole/ Aspirin (Aggrenox 200MG/ 25MG Cap) 1 cap BID PO 06/23/16 21:00 07/23/16 20:59 06/25/16 08:22 1 CAP Escitalopram Oxalate (Lexapro Tab) 10 mg QAM PO 06/24/16 09:00 07/24/16 08:59 06/25/16 08:22 10 MG Gabapentin (Neurontin Cap) 300 mg QPM PO 06/23/16 21:00 07/23/16 20:59 06/24/16 20:35 300 MG Potassium Chloride (Klor-Con Tab) 20 meq QAM PO 06/24/16 09:00 07/24/16 08:59 06/25/16 08:22 20 MEQ Miscellaneous Information (Order Awaiting Action) 1 ea QS N/A 06/24/16 00:00 07/24/16 00:00 Pantoprazole Sodium (Protonix Tab) 40 mg BID PO 06/23/16 21:00 07/23/16 20:59 06/25/16 08:30 40 MG Sodium Bicarbonate (Sodium Bicarbonate Tab) 325 mg QAM PO 06/24/16 09:00 07/24/16 08:59 06/25/16 08:22 325 MG Heparin Sodium (Porcine) (Heparin Sq 5000 Unit/0.5ml) 5,000 unit Q8 SQ 06/23/16 22:00 07/23/16 21:59 06/25/16 06:15 5,000 UNIT Acetaminophen (Tylenol Tab) 650 mg Q4H PRN PO 06/23/16 19:45 07/23/16 19:44 Al Hydrox/Mg Hydrox/Simethicone (Maalox Max Susp) 15 ml Q4H PRN PO 06/23/16 19:45 07/23/16 19:44 Magnesium Hydroxide (Milk Of Magnesia Susp) 30 ml Q12H PRN PO 06/23/16 19:45 07/23/16 19:44 Ondansetron HCl (Zofran Inj) 4 mg Q6H PRN IV 06/23/16 19:45 07/23/16 19:44 Nitroglycerin (Nitrostat Tab) 0.4 mg UD PRN SL 06/23/16 19:45 07/23/16 19:44 Morphine Sulfate (MoRPHine SULFATE INJ) 2 mg Q30M PRN IV 06/23/16 19:45 07/07/16 19:44 Polyethylene (Miralax Powder Packet) 17 gm DAILY PRN PO 06/23/16 19:45 07/23/16 19:44 Miscellaneous (Iv Fluids Completed) 1 ea PRN PRN N/A 06/23/16 20:15 06/23/17 20:14 Cilostazol (Pletal Tab) 100 mg BID PO 06/23/16 21:00 07/23/16 20:59 06/25/16 08:30 100 MG Famotidine (Pepcid Tab) 20 mg QAM PO 06/24/16 09:00 07/24/16 08:59 06/25/16 08:23 20 MG Aspirin (Ecotrin Tab) 81 mg DAILY PO 06/24/16 09:00 07/24/16 08:59 06/25/16 08:24 81 MG Objective Vital Signs Date Time Temp Pulse Resp B/P Pulse Ox O2 Delivery O2 Flow Rate FiO2 06/25/16 10:58 36.7 84 18 131/55 95 Room Air 88 121/51 92 122/52 06/25/16 08:00 97 Room Air 06/25/16 07:30 36.6 78 18 126/56 97 Room Air 06/25/16 04:00 Room Air 06/25/16 03:47 36.3 84 18 160/81 97 Room Air 06/25/16 00:33 96 Room Air 06/24/16 22:59 36.5 77 20 162/76 98 Room Air 06/24/16 20:20 96 Room Air 06/24/16 19:57 36.3 79 20 161/68 97 Room Air 06/24/16 16:00 96 Room Air 06/24/16 15:52 36.9 69 18 94/52 96 Room Air Physical Exam General Appearance: no apparent distress Eyes: normal inspection, PERRL ENT: hearing grossly normal Neck: supple Respiratory/Chest: lungs clear, no respiratory distress, no accessory muscle use Cardiovascular: regular rate, rhythm Abdomen: normal bowel sounds, non tender, soft Extremities: no pedal edema, no calf tenderness Neurologic/Psychiatric: alert, normal mood/affect, oriented x 3 Skin: normal color, warm/dry, no rash Assessment and Plan 86 y/o M w/Hx peripheral vascular disease, CKD 3, HTN, HPL. Presents with 2 episodes of central CP lasting 1-2 hours on subsequent evenings. Pt denies accompanying SOB, N/V, diaphoresis light-headedness or radiation of the pain. He denies a history of CAD/OH or angina. The pt also states that he has severe diarrhea for 2 days without abdominal pain although he suspected his CP may be more GI/epigastric in nature. He recently completed a course of Zithromax for a URI and states that he still has a persistent productive cough. He denies fevers. CP: - Admit tele for cardiac monitoring--> reviewed, NSR, rate 70-80s - Trend cardiac enzymes- negative - Consulted cardiology, appreciate recommendations -- BB held due to AV block -- Observe, no intervention at this time - Continue ASA and Statin - ?GERD: Protonix 40 mg BID Second degree AV block: - Held BB - Cardiology following- may need fci monitoring/?pacemaker implantation Lightheadedness: - Orthostatics checked - BB held - ?secondary to AV block, will need to f/u w/ cardiology outpt CKD, stage III: Stable. Follow PRP HTN: Continue Amlodipine Diarrhea: Recently completed an antibiotic course- C-diff toxin study pending PVD: Continue Plavix, ASA, Statin DVT prophylaxis: Heparin 5000 units SQ q12 hrs, PATRICK and SCDs Code Status: LEVEL I, FULL Dispo: From home, lives alone. Consult PT/OT
[2016-06-25] MEDS: GABAPENTIN 300 MG CAP PO SCH (21:28)
[2016-06-26] VITALS (12 sets, daily range): BP systolic 132–157; BP diastolic 62–77; PULSE 79–94; TEMP 36.2–36.7; O2SAT 91–97
[2016-06-26] MEDS: HEPARIN SOD 5000 UNIT/0.5 ML CARP SQ SCH ×3 (06:02→20:51)
[2016-06-26 07:21] LABS: MEAN CELL VOLUME 102.9 fL (80-100); MEAN CORPUSCULAR HEMOGLOBIN 35.4 pg (25-34); MEAN CORPUSCULAR HGB CONC 34.4 g/dl (32-36); MEAN PLATELET VOLUME 9.5 fL (7.4-10.4); PLATELET COUNT 124 K/uL (130-400); RED BLOOD COUNT 3.11 M/uL (4.7-6.1); WHITE BLOOD COUNT 5.16 K/uL (4.8-10.8)
--- NOTE | 2016-06-26 07:50 | Cardiology Follow-Up ---
Subjective Date of Service: Jun 26, 2016. Pt evaluation today including: conversation w/ patient, physical exam, lab review, review of studies, review of inpatient medication list History of Present Illness This is an 86-year-old male who has a history of colon cancer, peripheral vascular disease as well as hypertension and presented with chest discomfort. He does not have a history of known coronary artery disease. He describes 2 nights in a row having chest discomfort occurring while in bed, he describes a substernal chest heaviness and pressure lasting a total of about 3 hours prior to admission. He has not had these symptoms before and does not get them with exertion. Cardiac enzymes 2 here are negative. He was observed on telemetry to have periods of second degree AV block on the evening of 06/23/2016. He does take atenolol 25 mg daily at home and was on it here, as well as amlodipine. I discussed symptoms of bradycardia with him and he does describe momentary lightheadedness at times, this is been going on for some time and could represent transient AV block. He has never had presyncope or syncope and these are quite brief. He also describes orthostatic symptoms, when he stands up he gets a little bit lightheaded and has to stand still for a moment to get his bearings. He also uses a walker following his colon surgery. I discontinued his atenolol. Today he feels well, he has had no further chest discomfort and no lightheadedness or dizziness. Social History Smoking Status: Never Smoker History of Alcohol Use: Yes (2-3 beers/day) Review of Systems Respiratory: No cough, No dyspnea on exertion, No shortness of breath, No wheezing Cardiac: + problem reported (lightheadness), No chest pain Medications Cardiovascular: Item Value Date Time Amlodipine 2.5 mg 06/24/16 0900 Besylate QAM/PO 06/25/16 08 (Norvasc Tab) Atorvastatin 10 mg 06/24/16 0900 Calcium QAM/PO 06/25/16 08 (Lipitor Tab) Potassium Chloride 20 meq 06/24/16 09 (Klor-Con Tab) QAM/PO 06/25/16 0822 Aspirin 81 mg 06/24/16 0900 (Ecotrin Tab) DAILY/PO 06/25/16 0824 Heparin Sodium 5,000 unit 06/23/16 2200 (Porcine) Q8/SQ 06/26/16 0602 (Heparin Sq 5000 Unit/0.5ml) Dipyridamole/ 1 cap 06/23/162099 Aspirin BID/PO 06/25/168 (Aggrenox 200MG/ 25MG Cap) Objective Vital Signs Past 12 Hours Date Time Temp Pulse Resp B/P Pulse Ox O2 Delivery O2 Flow Rate FiO2 06/26/16 07:23 36.4 80 18 150/72 97 Room Air 06/26/16 04:00 97 Room Air 06/26/16 03:53 36.7 88 16 146/71 96 Room Air 06/26/16 00:00 97 Room Air 06/26/16 00:00 36.5 83 18 156/67 97 Room Air 81 157/71 86 150/64 06/25/16 20:06 36.6 80 18 152/63 97 Room Air 83 163/72 85 165/78 06/25/16 20:00 96 Room Air Last Recorded Weight-Kilograms: 81.000 Intake & Output 8-Hour Column 06/25/16 06/26/16 06/26/16 16:00 00:00 08:00 Intake Total 815 ml 515 ml Balance 815 ml 515 ml 24-Hour Column 06/26/16 08:00 Intake Total 1330 ml Balance 1330 ml Physical Exam Constitutional: General Apperance: heathly-appearing Level of Distress: NAD Lungs: Respiratory effort: no dyspnea, good air movement Auscultation: breath sounds normal, no wheezing Cardiovascular: Heart Auscultation: RRR, no murmurs, no rubs, no gallops Peripheral Pulses: Bruits: none appreciated Extremities: no edema Data Laboratory Results: Last 24 Hours Test 06/26/16 07:04 White Blood Count 5.16 K/uL Red Blood Count 3.11 M/uL Hemoglobin 11.0 g/dL Hematocrit 32.0 % Mean Corpuscular Volume 102.9 fL Mean Corpuscular Hemoglobin 35.4 pg Mean Corpuscular Hemoglobin Concent 34.4 g/dl RDW Standard Deviation 57.5 fL RDW Coefficient of Variation 15.2 % Platelet Count 124 K/uL Mean Platelet Volume 9.5 fL Telemetry reviewed: Sinus rhythm, no AV block Assessment and Plan #1. Chest discomfort: Although the description of his chest discomfort is compatible with myocardial ischemia the duration and mode of onset (occurring at night) with no evidence of electrocardiographic or chemical findings to suggest ischemia I suspect this is not cardiac in nature. Possibly gastrointestinal. I would continue to observe without invasive evaluation. We could do a stress test but that may be misleading. He has had none in the past 48 hours. He is on Aggrenox and aspirin, I don't know that he should be on both, I would consider discontinuing the aspirin at least. #2. Second degree AV block: Twice on telemetry monitoring overnight on 2016 he had periods of 2-1 AV block. He does have baseline first degree AV block on electrocardiography. This is consistent with AV sonja conduction disease, although I'm not sure it is symptomatic but he does have momentary lightheadedness at times but also has orthostatic symptoms (although not documented orthostasis here). I did discontinue his beta toñito (he has no clear indication for it with negative cardiac enzymes). He has had no further AV block since discontinuation of his atenolol. Amlodipine can also cause AV block although it is less common, and if he continues to have AV block on amlodipine we may want to consider discontinuing that but he needs treatment for his hypertension. It is possible he will need a pacemaker but at this time it is not indicated. If he continues to have momentary lightheadedness we probably need to perform some type of mcc monitoring to see if the symptoms are due to AV block, if so he should have a pacemaker. This may be done as an outpatient if he continues to have momentary lightheadedness. #3. Hypertension: He will need treatment for his hypertension I would recommend vasodilators. Amlodipine can be used but can cause AV block under certain conditions, so far he has had no further AV block off of a blockade. If his AV block continues off of beta-blockade I would recommend trying to substitute something else for the amlodipine. He describes orthostatic symptoms by don't know that we have documented orthostatic hypotension, here he has not demonstrated that on his current medical regimen. Thank you for allowing me to participate in his care.
[2016-06-26 07:58] LABS: BUN/CREATININE RATIO 17.9 (10-20); CREATININE 1.7 mg/dl (0.60-1.40); POTASSIUM 3.6 mmol/L (3.5-5.1)
[2016-06-26] MEDS: ASPIRIN 81 MG ECTAB PO SCH (08:35)
[2016-06-26] MEDS: FAMOTIDINE 20 MG TAB PO SCH (08:35)
[2016-06-26] MEDS: SODIUM BICARBONATE 650 MG TAB PO SCH (08:35)
[2016-06-26] MEDS: POTASSIUM CHLORIDE 20 MEQ TABCR PO SCH (08:35)
[2016-06-26] MEDS: DIPYRIDAMOLE/ASPIRIN CAP PO SCH ×2 (08:35→20:47)
[2016-06-26] MEDS: ESCITALOPRAM OXALATE 10 MG TAB PO SCH (08:35)
[2016-06-26] MEDS: PANTOprazole SOD 40 MG TAB PO SCH ×2 (08:35→20:48)
[2016-06-26] MEDS: AMLODIPINE BESYLATE 5 MG TAB PO SCH (08:35)
[2016-06-26] MEDS: ATORVASTATIN 10 MG TAB PO SCH (08:35)
[2016-06-26] MEDS: CILOSTAZOL 100 MG TAB PO SCH ×2 (08:35→20:48)
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
[2016-06-26] MEDS ORDERED: LOPERAMIDE HCL 2 MG CAP PO PRN (13:00)
[2016-06-26] MEDS: GABAPENTIN 300 MG CAP PO SCH (20:47)
[2016-06-27 04:55] VITALS: BP 145/70; PULSE 83; TEMP 36.5; O2SAT 96
[2016-06-27] MEDS: HEPARIN SOD 5000 UNIT/0.5 ML CARP SQ SCH (06:19)
[2016-06-27 07:00] LABS: BUN/CREATININE RATIO 19.7 (10-20); CALCIUM 9.1 mg/dl (8.5-10.1); CREATININE 1.8 mg/dl (0.60-1.40); POTASSIUM 3.6 mmol/L (3.5-5.1)
[2016-06-27 07:21] VITALS: BP 144/70; PULSE 84; TEMP 36.5; O2SAT 96
[2016-06-27 08:00] VITALS: O2SAT 96
[2016-06-27] MEDS ORDERED: PRT40 PO (08:03)
--- NOTE | 2016-06-27 08:08 | Discharge Instructions ---
Discharge Instructions Date of Service Jun 27, 2016. Admission Reason for Admission: Acute Chest Pain Discharge Discharge Diagnosis / Problem: Chest pain; AV block; GERD Discharge Goals Goal(s): Decrease discomfort, Learn about illness, Diagnostic testing, Therapeutic intervention, Prevent Disease Progression Activity Recommendations Activity Limitations: resume your previous activity . Instructions / Follow-Up Instructions / Follow-Up New/changed medications: 1. STOP Omeprazole 2. Protonix 40 mg by mouth twice per day 3. STOP Atenolol 4. If you take an Aspirin daily, please STOP Resume all other regular home medications as prescribed to you. Please log your blood pressures 2 times per day. Take these recordings to your next PCP appointment. They will make further adjustments to medications as needed. It is important you remain well hydrated. Drink enough fluids to keep your urine light yellow/clear in color. It is important you change positions slowly to avoid lightheadedness/dizziness, which could contribute to a fall leading to serious injuries. Please follow-up with your PCP within 5-7 days Please follow-up with Cardiology, Dr. Quarles in 1-2 weeks. A referral has been sent to request an appointment. If you do not hear of an appointment in 1-2 days, please call the office at . Please follow-up/keep all of your subspecialty appointments Current Hospital Diet Patient's current hospital diet: AHA Diet (Heart Healthy) Discharge Diet Recommended Diet: AHA Diet (Heart Healthy) Procedures Procedures Performed: 1. Chest x-ray Pending Studies Studies pending at discharge: no Laboratory Results Last 24 Hours Test 06/27/16 05:42 Sodium Level 141 mmol/L Potassium Level 3.6 mmol/L Chloride Level 113 mmol/L Carbon Dioxide Level 17 mmol/L Anion Gap 11.0 mmol/L Blood Urea Nitrogen 36 mg/dl Creatinine 1.80 mg/dl Est Creatinine Clear Calc Drug Dose 31.0 ml/min Estimated GFR () 38.9 Estimated GFR (Non- 33.6 BUN/Creatinine Ratio 19.7 Random Glucose 100 mg/dl Calcium Level 9.1 mg/dl Hemoglobin A1c Test 04/19/16 14:45 Range/Units Estimated Average Glucose 131 mg/dl Hemoglobin A1c 6.2 H 4.5-5.6 % Medical Emergencies . Who to Call and When: Medical Emergencies: If at any time you feel your situation is an emergency, please call 911 immediately. . Non-Emergent Contact Non-Emergency issues call your: Primary Care Provider Call Non-Emergent contact if: you have a fever, your pain is unusual for you, your pain is concerning you, you have any medication questions . . "Provider Documentation" section prepared by Aissatou So. VTE Core Measure Inpt VTE Proph given/why not?: Unfractionated heparin SQ
--- NOTE | 2016-06-27 08:22 | Discharge Summary ---
Discharge Summary Date of Service Jun 27, 2016. Discharge Summary Admission Date: Jun 25, 2016 at 14:14 Discharge Date: Jun 27, 2016 Discharge Disposition: Home Principal Diagnosis: Chest pain Problems/Secondary Diagnoses: 1. GERD 2. Second degree AV block 3. Lightheadedness 4. CKD, stage III 5. HTN 6. Diarrhea Immunizations: Have You Had Influenza Vaccine: Yes Influenza Vaccine Date: Feb 14, 2012 History of Tetanus Vaccine?: Yes Tetanus Immunization Date: Jun 30, 2012 History of Pneumococcal: Yes Pneumococcal Date: Jan 13, 2010 History of Hepatitis B Vaccine: No Procedures: CHEST ONE VIEW PORTABLE CLINICAL HISTORY: Atypical chest pain COMPARISON STUDY: No previous studies for comparison. FINDINGS: The patient has taken a suboptimal inspiration. The heart is at the upper limits of normal in size. There are bibasal airspace opacities, hypoventilatory versus inflammatory.[ No pleural effusions are visualized IMPRESSION: Bibasal airspace opacities, atelectatic versus inflammatory. Clinical and radiographic follow-up is recommended. Electronically signed by: Jorge Quintana M.D. 06/23/2016 3:54 PM Dictated Date/Time: 06/23/2016 3:53 PM The status of this report is Signed. Draft = Not yet reviewed or approved by Radiologist. Signed = Reviewed and approved by Radiologist. CHEST 2 VIEWS ROUTINE CLINICAL HISTORY: Chest pain. Possible pneumonia. COMPARISON STUDY: AP portable study dated 06/23/2016 FINDINGS: The cardiac and mediastinal contours are normal. The patient has taken a better inspiratory effort. There is been resolution of the bibasal airspace opacities. There is no focal pulmonary consolidation. There is no failure. There are no pleural effusions. The superior aspect of the aortic stent is visualized.[ IMPRESSION: No active disease in the chest. Electronically signed by: Jorge Quintana M.D. 06/23/2016 4:50 PM Dictated Date/Time: 06/23/2016 4:50 PM The status of this report is Signed. Draft = Not yet reviewed or approved by Radiologist. Signed = Reviewed and approved by Radiologist. Consultations: Cardiology- Dr. Quarles Medication Reconciliation New Medications: Pantoprazole (Pantoprazole Sodium) 40 Mg Tab 40 MG PO BID for 30 Days, #60 TAB Continued Medications: Allopurinol (Allopurinol) 300 Mg Tab 300 MG PO DAILY PRN for Gout Flare Up Amlodipine (Norvasc) 2.5 Mg Tab 2.5 MG PO QAM, TAB Atorvastatin (Lipitor) 10 Mg Tab 10 MG PO QAM, TAB Cilostazol (Pletal) 100 Mg Tab 100 MG PO BID, TAB Dipyridamole/Aspirin (Aggrenox 25-200 mg) 1 Cap Cap 1 CAP PO BID, CAP Dutasteride (Avodart) 0.5 Mg Cap 0.5 MG PO QAM, CAP Ergocalciferol (Vitamin D 88489 Unit) 50,000 Unit Cap 35500 INTER.UNIT PO MONTHLY, CAP Escitalopram (Lexapro) 10 Mg Tab 10 MG PO QAM, TAB Furosemide (Lasix) 20 Mg Tab 20 MG PO 2XWK, TAB TAKE THIS MEDICATION EVERY SATURDAY AND SATURDAY Gabapentin (Neurontin) 300 Mg Cap 300 MG PO QPM, CAP Potassium Chloride Microencaps (Potassium Chloride Cr) 20 Meq Tab 20 MEQ PO QAM Discontinued Medications: Atenolol (Tenormin) 25 Mg Tab 25 MG PO QAM, TAB Omeprazole (Prilosec) 20 Mg Capcr 20 MG PO BID Sodium Bicarbonate (Antacid) (Sodium Bicarbonate) 325 Mg Tab 325 MG PO QAM Referrals At Discharge Follow up Referrals: Head Animal Keeper Referral - Within 1-2 Weeks with Remy Quarles M.D. Family Practice Referral - Within 1 Week with Dallas Jacobo M.D. Discharge Exam Review of Systems: Constitutional: No chills, No fatigue, No fever, No sweats, No weakness Respiratory: No cough, No hemoptysis, No shortness of breath Cardiovascular: No chest pain, No edema, No palpitations Abdomen: No constipation, No diarrhea, No nausea, No pain, No vomiting Musculoskeletal: No calf pain, No joint pain, No muscle pain, No swelling Genitourinary - Male: No dysuria, No hematuria Neurologic: No numbness/tingling, No weakness Psychiatric: No anxiety, No depression symptoms Hematologic / Lymphatic: No abnormal bleeding/bruising Integumentary: No itch, No new/changing skin lesions, No rash Physical Exam: General Appearance: no apparent distress Eyes: normal inspection, PERRL ENT: hearing grossly normal Neck: supple Respiratory/Chest: lungs clear, no respiratory distress, no accessory muscle use Cardiovascular: regular rate, rhythm Abdomen / GI: normal bowel sounds, non tender, soft Extremities: no calf tenderness, no pedal edema Neurologic/Psychiatric: alert, normal mood/affect, oriented x 3 Skin: normal color, warm/dry, no rash Hospital Course 86 y/o M w/Hx peripheral vascular disease, CKD 3, HTN, HPL. Presents with 2 episodes of central CP lasting 1-2 hours on subsequent evenings. Pt denies accompanying SOB, N/V, diaphoresis light-headedness or radiation of the pain. He denies a history of CAD/ND or angina. The pt also states that he has severe diarrhea for 2 days without abdominal pain although he suspected his CP may be more GI/epigastric in nature. He recently completed a course of Zithromax for a URI and states that he still has a persistent productive cough. He denies fevers. CP: - Admit tele for cardiac monitoring--> reviewed, NSR, rate 70-80s - Trend cardiac enzymes- negative - Consulted cardiology, appreciate recommendations -- Atenolol 25 mg PO daily held due to AV block -- Observe, no intervention at this time - Continue ASA 81 mg PO daily, Aggrenox 1 cap BID, and Lipitor 10 mg PO daily -- d/c ASA at discharge as per cardiology recommendations - ?GERD: Protonix 40 mg BID Second degree AV block: - Held BB - Cardiology following- may need superintendent container terminal monitoring/?pacemaker implantation. *f/u w/ cardiology outpatient in 1-2 weeks Lightheadedness: - Orthostatics checked - BB held - ?secondary to AV block, will need to f/u w/ cardiology outpt CKD, stage III: Stable. Follow PRP HTN: Continue Amlodipine 2.5 mg PO daily *Instructed patient to log BPs 2x per day and f/u with PCP for additional changes as needed Diarrhea- improved: Recently completed an antibiotic course- C-diff toxin study negative. PVD: Continue Aggrenox 1 cap BID, ASA 81 mg PO daily, Lipitor 10 mg PO daily -- ASA d/c'd as per cardiology recommendations DVT prophylaxis: Heparin 5000 units SQ q12 hrs, PATRICK and SCDs Code Status: LEVEL I, FULL Dispo: Discharge to home Total Time Spent: Greater than 30 minutes This includes examination of the patient, discharge planning, medication reconciliation, and communication with other providers. Discharge Instructions Please refer to the electronic Patient Visit Report (Discharge Instructions) for additional information. Follow-Up Please follow-up with your PCP within 5-7 days Please follow-up with Cardiology in 1-2 weeks Please follow-up/keep all of your subspecialty appointments Additional Copies To Dallas Jacobo M.D.
[2016-06-27] MEDS: ASPIRIN 81 MG ECTAB PO SCH (09:16)
[2016-06-27] MEDS: DIPYRIDAMOLE/ASPIRIN CAP PO SCH (09:16)
[2016-06-27] MEDS: AMLODIPINE BESYLATE 5 MG TAB PO SCH (09:17)
[2016-06-27] MEDS: CILOSTAZOL 100 MG TAB PO SCH (09:18)
[2016-06-27] MEDS: SODIUM BICARBONATE 650 MG TAB PO SCH (09:18)
[2016-06-27] MEDS: PANTOprazole SOD 40 MG TAB PO SCH (09:18)
[2016-06-27] MEDS: FAMOTIDINE 20 MG TAB PO SCH (09:18)
[2016-06-27] MEDS: POTASSIUM CHLORIDE 20 MEQ TABCR PO SCH (09:18)
[2016-06-27] MEDS: ESCITALOPRAM OXALATE 10 MG TAB PO SCH (09:18)
[2016-06-27] MEDS: ATORVASTATIN 10 MG TAB PO SCH (09:18)
[2016-06-27 11:00] VITALS: BP 126/66; PULSE 82; TEMP 36.4; O2SAT 95
[2016-06-27 11:58] VITALS: BP 126/66; PULSE 82; TEMP 36.4; O2SAT 95
[2016-06-27 12:00] VITALS: O2SAT 96
[2016-08-06] MEDS ORDERED: POTA20TA13 PO (08:17)
[2016-08-06] MEDS ORDERED: DUTA1CAP3 PO (08:17)
[2016-08-06] MEDS ORDERED: GABA1CAP4 PO (08:19)
[2016-08-06] MEDS ORDERED: LXP10 PO (08:19)
[2016-08-06] MEDS ORDERED: MAGN64TA4 PO (08:19)
[2016-08-06] MEDS ORDERED: LSX20 PO (08:19)
[2016-08-06] MEDS ORDERED: LPT10 PO (08:19)
[2016-09-27] MEDS ORDERED: CILO100T PO (15:29)
[2016-09-27] MEDS ORDERED: PANT40TA PO (15:33)
[2016-09-27] MEDS ORDERED: TRMO115 TOP (15:33)
[2016-10-13] MEDS ORDERED: LPR25 PO (07:55)
[2016-11-08] MEDS ORDERED: METO25TA56 PO (15:36)
== END 2016-06-27 13:47 | disposition home or self-care (01) | DRG 313 ==
LOC: ENRESERVTM → ENRESERVDT → EDBD 14:43 → C.EDC 14:44 → C.MED 19:41 → OBSVTOIN 06-25 14:14
PROVIDERS: ADMIT Internal Medicine; ATTEND Hospitalist
DX: R07.9 Chest pain, unspecified (principal); I44.1 Atrioventricular block, second degree; R42 Dizziness and giddiness; R19.7 Diarrhea, unspecified; K21.9 Gastro-esophageal reflux disease without esophagitis; I12.9 Hypertensive chronic kidney disease with stage 1 through stage 4 chronic kidney disease, or unspecified chronic kidney disease; N18.3 Chronic kidney disease, stage 3 (moderate); E11.9 Type 2 diabetes mellitus without complications; E78.5 Hyperlipidemia, unspecified; M10.9 Gout, unspecified; I73.9 Peripheral vascular disease, unspecified; Z87.891 Personal history of nicotine dependence; Z79.01 Long term (current) use of anticoagulants; Z79.899 Other long term (current) drug therapy

== ENCOUNTER → 2016-07-27 | Outpatient (CLI) | payer OTHER ==
[~2016-07-27] MED LIST changes: +ALLO100T PO; -ATEN-173 PO; +ATOR10TA82 PO; -ATOR10TA88 PO; -AVD5 PO; +CILO100T PO; -CILO50TA9 PO; +DUTA0.5C PO; +DUTA1CAP3 PO; -ERGO1TAB10 PO; +ERGO500037 PO; +GABA1CAP4 PO; +LPR25 PO; +LPT10 PO; +LSX20 PO; +LXP10 PO; +MAGN64TA4 PO; +METO25TA56 PO; +PANT40TA PO; +POTA20TA13 PO; +PRT40 PO; -SODIUM BICARBONATE PO; +SUCR1TAB29 PO; +TRMO115 TOP; +VTMD PO
--- NOTE | 2016-07-27 12:19 | DIAGNOSTIC IMAGING REPORT ---
ABDOMEN AND PELVIS CT WITH ORAL CONTRAST CT DOSE: HISTORY: Colon carcinoma COLON CA TECHNIQUE: Multiaxial CT images of the abdomen and pelvis were performed following the use of oral contrast. COMPARISON STUDY: 07/20/2015 FINDINGS: Micronodularity right lung base similar compared to the prior exam. No evidence for dominant basilar parenchymal nodule. Liver spleen and pancreas appear unremarkable. Prior cholecystectomy. Mild cortical scarring of both kidneys similar compared to the prior exam. 2 cm right renal cyst unchanged in the prior study. 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 Bowel pattern is considered nonobstructive. Bladder is midline. Prostate is moderately enlarged. No significant abdominal pelvic or inguinal adenopathy. IMPRESSION: 1. Small right renal cyst. 2. Stable micronodularity right base. 3. No evidence for metastatic disease Electronically signed by: Andre Ca M.D. 07/27/2016 12:17 PM Dictated Date/Time: 07/27/2016 12:10 PM
--- NOTE | 2016-07-27 12:21 | DIAGNOSTIC IMAGING REPORT ---
CHEST CT WITHOUT CONTRAST CT DOSE: 1258.08 mGycm HISTORY: Colon cancer. TECHNIQUE: Multiaxial CT images of the chest were performed without contrast. COMPARISON: Chest CT 07/20/2015. FINDINGS: Emphysema. Small linear density within the right lung apex on image 60 remains stable and likely represents an area of scarring. There is a 2.2 x 0.7 cm groundglass irregular opacity within the right lung apex on image 71. This is consistent with a primary bronchogenic malignancy. Small linear density within the right upper lobe anteriorly on image 83 remains stable and likely represents an area of scarring. Mild bibasilar interstitial thickening persists. Stable 5 mm nodule within the right lower lobe on image 230. Stable 2 mm nodule within the right lower lobe on image 220. No suspicious lytic or blastic osseous lesions. No mediastinal or hilar lymphadenopathy. Small hiatus hernia. Calcified thoracic aorta. An abdominal aortic stent is partially visualized. IMPRESSION: 1. A 2.2 x 0.7 cm groundglass irregular opacity within the right lung apex. This is consistent with a primary bronchogenic malignancy. Surgical consultation recommended. 2. Emphysema. 3. Stable 5 mm nodule within the right lower lobe. Electronically signed by: Aditya Sandoval M.D. 07/27/2016 12:19 PM Dictated Date/Time: 07/27/2016 12:12 PM
== END | disposition home or self-care (01) ==
LOC: C.CTS 11:02
PROVIDERS: ATTEND Nurse Practitioner
DX: C18.2 Malignant neoplasm of ascending colon (principal); N28.1 Cyst of kidney, acquired; J43.9 Emphysema, unspecified; R91.1 Solitary pulmonary nodule; R91.8 Other nonspecific abnormal finding of lung field

== ENCOUNTER 2016-08-06 07:57 | Observation (INO) | payer OTHER ==
[~2016-08-06] VITALS: Ht 177.8 cm; Wt 86.3 kg
[~2016-08-06 07:57] MED LIST changes: -ALLO100T PO; -DUTA1CAP3 PO; -GABA1CAP4 PO; -LPR25 PO; -LPT10 PO; -LSX20 PO; -LXP10 PO; -MAGN64TA4 PO; -METO25TA56 PO; -PANT40TA PO; -POTA20TA13 PO; -SUCR1TAB29 PO; -TRMO115 TOP; -VTMD PO
[2016-08-06] MEDS ORDERED: CILO100T PO (08:17)
[2016-08-06 08:30] LABS: HEMATOCRIT 42.4 % (42-52); MEAN CELL VOLUME 102.4 fL (80-100); MEAN CORPUSCULAR HEMOGLOBIN 35.5 pg (25-34); MEAN CORPUSCULAR HGB CONC 34.7 g/dl (32-36); MEAN PLATELET VOLUME 9.9 fL (7.4-10.4); PLATELET COUNT 166 K/uL (130-400); RED BLOOD COUNT 4.14 M/uL (4.7-6.1); WHITE BLOOD COUNT 7.43 K/uL (4.8-10.8)
[2016-08-06 08:35] LABS: PARTIAL THROMBOPLASTIN RATIO 1.4; PROTHROMBIN TIME (PATIENT) 10.8 SECONDS (9.0-12.0)
[2016-08-06 08:40] LABS: ALT/SGPT 25 U/L (12-78); BLOOD UREA NITROGEN 37 mg/dl (7-18); BUN/CREATININE RATIO 18.6 (10-20); CARBON DIOXIDE 14 mmol/L (21-32); CHLORIDE 108 mmol/L (98-107); GLUCOSE 134 mg/dl (70-99); POTASSIUM 3.8 mmol/L (3.5-5.1); SODIUM 137 mmol/L (136-145)
--- NOTE | 2016-08-06 08:41 | EMERGENCY ROOM VISIT NOTE ---
History Report prepared by Pavan: Regla Burrows Under the Supervision of: Dr. David Gould M.D. First contact with patient: 08:28 Chief Complaint: CHEST PAIN Stated Complaint: CHEST PAIN Nursing Triage Summary: Pt arrives ALS from home. Pt was awoken around 0200 with midsternal CP Pt denies sweating, nausea, SOB Pt reports pain lasted approx 5-10 mins Pt pain free on arrival to ED Pt had 324 [employer] History of Present Illness The patient is an 86 year old male who presents to the Emergency Room with complaints of resolved central chest pain that began around 0200 this morning. He states that at the time, his pain was a 9-10/10 in severity. The patient states that he initially felt dizzy this morning, but states that it had resolved. He states that the episode lasted approximately 10 minutes. The patient denies any shortness of breath, diaphoresis, extremity pain, abdominal pain, or pain radiating to his arms, legs, or neck. He denies his pain worsening with exertion. The patient states that he takes Aggrenox daily, but was also give 324 of aspirin this morning prior to arrival. The patient states that he had a similar episode in June, noting that he was evaluated in the hospital for it. He denies any recent stress test or heart catheterization. The patient denies being on any blood thinners. The patient notes that his blood pressure has been normal recently. He additionally notes a history of diabetes and colon cancer. The patient denies any tobacco use. He states that his pain today is much worse than the pain he experienced while in the hospital one month ago. Source of History: patient Onset: 0200 this morning Position: chest (central) Timing: resolved Associated Symptoms: No SOB, No abdominal pain, No diaphoresis, No neck pain Note: Associated Symptoms: dizziness Review of Systems See HPI for pertinent positives & negatives. A total of 10 systems reviewed and were otherwise negative. Past Medical & Surgical Medical Problems: (1) Benign essential hypertension (2) Carcinoma of colon (3) chest pain and AV block (4) chest pain and AV block (5) Diabetes mellitus type 2 (6) Gastroesophageal reflux disease (7) GERD (gastroesophageal reflux disease) (8) Glaucoma (9) Gout (10) Hyperlipidemia (11) Lower gastrointestinal hemorrhage (12) Peripheral vascular disease Family History Noncontributory secondary to age. Social History Smoking Status: Former Smoker Alcohol Use: none Drug Use: none Marital Status: Housing Status: lives with family Occupation Status: retired Current/Historical Medications Scheduled Atorvastatin (Atorvastatin Calcium), 10 MG PO DAILY Cilostazol (Pletal), 100 MG PO BID Dipyridamole/Aspirin (Aggrenox 25-200 mg), 1 CAP PO BID Dutasteride (Dutasteride), 0.5 MG PO BID Escitalopram Oxalate (Escitalopram Oxalate), 10 MG PO DAILY Furosemide (Furosemide), 20 MG PO BID Gabapentin (Gabapentin), 300 MG PO DAILY Magnesium Chloride (Mag64), 1 TAB PO DAILY Potassium Chloride Microencaps (Potassium Chloride Er), 20 MEQ PO DAILY Allergies Coded Allergies: Amoxicillin (Verified Allergy, Severe, HIVES; ANGIOEDEMA, 04/04/15) Lisinopril (Verified Allergy, Mild, HIVES, 04/04/15) Penicillins (Verified Allergy, Mild, HIVES, 04/04/15) Physical Exam Vital Signs Date Time Temp Pulse Resp B/P Pulse Ox O2 Delivery O2 Flow Rate FiO2 08/06/16 11:45 85 20 169/84 96 Room Air 08/06/16 11:25 116 24 130/81 93 Room Air 08/06/16 09:42 89 18 140/84 97 Room Air 08/06/16 08:00 97 Room Air 08/06/16 08:00 36.4 96 20 168/89 96 Room Air Physical Exam GENERAL: Patient awake, alert, oriented x 3. Patient follows commands. Patient does not appear toxic. Patient is adequately hydrated and well- nourished. SKIN: No erythema, pallor, cyanosis or rash HEENT: Normal head, pupils equal, reactive to light and accommodation. Oral cavity and posterior pharynx appear normal, dentures noted. Neck: Without adenopathy, no neck vein distention. LUNGS: Clear to auscultation. No wheezes, no rales, no rhonchi. HEART: No murmurs. No gallops. No rubs ABDOMEN: Oblique right upper quadrant scar, sub-umbilical scar, both well healed. No masses, no rebound, no hepatomegaly or splenomegaly. EXTREMITIES: Slight erythema over anterior shins which is unchanged form the past. No signs of trauma. No pedal or pretibial edema. No calf or thigh tenderness. NEUROLOGIC: Cranial nerves II-XII within normal limits. No gross motor sensory function deficits. Medical Decision & Procedures ER Provider Diagnostic Interpretation: X ray results are stated below per my interpretation and the radiologist's interpretation. CHEST ONE VIEW PORTABLE CLINICAL HISTORY: Mid sternal chest pain. COMPARISON STUDY: Chest radiograph June 23, [address] July 27, 2016. FINDINGS: Lung volume are normal. There is no pneumothorax or pleural effusion. Minimal bibasilar opacities favor atelectasis. There is no evidence of pulmonary edema. Cardiomediastinal silhouette is normal. IMPRESSION: 1. No acute cardiopulmonary findings. 2. Mild bibasilar opacities which favor atelectasis. Electronically signed by: Kristian Malone M.D. 08/06/2016 8:52 AM Dictated Date/Time: 08/06/2016 8:50 AM Laboratory Results 08/06/16 07:25 08/06/16 07:25 Test 08/06/16 07:25 08/06/16 09:40 Red Blood Count 4.14 M/uL (4.7-6.1) Mean Corpuscular Volume 102.4 fL (80-100) Mean Corpuscular Hemoglobin 35.5 pg (25-34) Mean Corpuscular Hemoglobin Concent 34.7 g/dl (32-36) RDW Standard Deviation 49.4 fL (36.4-46.3) RDW Coefficient of Variation 13.1 % (11.5-14.5) Mean Platelet Volume 9.9 fL (7.4-10.4) Prothrombin Time 10.8 SECONDS (9.0-12.0) Prothromb Time International Ratio 1.0 (0.9-1.1) Activated Partial Thromboplast Time 35.1 SECONDS (21.0-31.0) Partial Thromboplastin Ratio 1.4 Anion Gap 15.0 mmol/L (3-11) Estimated GFR () 34.3 Estimated GFR (Non- 29.6 BUN/Creatinine Ratio 18.6 (10-20) Calcium Level 8.8 mg/dl (8.5-10.1) Total Bilirubin 0.4 mg/dl (0.2-1) Aspartate Amino Transf (AST/SGOT) 18 U/L (15-37) Alanine Aminotransferase (ALT/SGPT) 25 U/L (12-78) Alkaline Phosphatase 130 U/L (45-117) Total Creatine Kinase 60 U/L (39-308) Creatine Kinase MB 2.4 ng/ml (0.5-3.6) Creatine Kinase MB Ratio 4.0 (0-3.0) Troponin I < 0.015 ng/ml (0-0.045) Total Protein 7.6 gm/dl (6.4-8.2) Albumin 3.9 gm/dl (3.4-5.0) Globulin 3.7 gm/dl (2.5-4.0) Albumin/Globulin Ratio 1.1 (0.9-2) Bedside Troponin I 0.010 ng/ml (0-0.045) Laboratory results as stated above per my review. Medications Administered ECG Indication: chest pain Rate (beats per minute): 95 Rhythm: normal sinus Findings: no acute ischemic change, left axis deviation, no ectopy Change: Repeat EKG: Sinus Rhythm 89 beats per minute 1st degree AV block, no ectopy, no ischemia ED Course 0829: Past medical records reviewed. The patient was evaluated in room B7. A complete history and physical examination was performed. 1047: I reevaluated the patient and he is in no current pain. 1058: I discussed the patients case with Dr. Hyman, Cardiology. 1108: Per nursing staff, the patient just developed chest pain and vomited. 1125: I discussed the patients case with Dr. Thomas, [facility] [place]. He is going to evaluate the patient for further treatment. 1144: I reevaluated the patient and he is doing well. I discussed all the exam findings with him and I discussed the treatment plan. He verbalized complete understanding and agreement. He will be evaluated for further treatment. Medical Decision I considered multiple diagnoses including myocardial infarction, chest wall pain , pericarditis, myocarditis, aortic emergencies, pulmonary embolism, congestive heart failure, GI causes, and other significant cardiopulmonary disorders. The patient had severe chest pain early this morning lasting about 10 minutes. On arrival he was pain-free. He had another episode of significant chest pain while here in the ED. Review of his last admission about one month ago revealed chest pain with second-degree block. He does not appear to be in any kind of block at this time. The exact etiology of his pain remains undetermined. The patient will require further evaluation in the hospital. I discussed care with the steam room attendant and hospitalist. I also discussed care with the patient. Consults Time Called: 1046 Consulting Physician: Dr. Hyman, Cardiology Returned Call: [phone] I discussed the patients case with Dr. Hyman, Cardiology. Additional Consults: Time Called: 1115 Consulted Physician: EVER Webster Returned Call: 1125 Additional Comments: I discussed the patients case with EVER Webster. He is going to evaluate the patient for further treatment. Impression Primary Impression: Precordial chest pain Scribe Attestation The scribe's documentation has been prepared under my direction and personally reviewed by me in its entirety. I confirm that the note above accurately reflects all work, treatment, procedures, and medical decision making performed by me. Departure Information Dispostion Being Evaluated By Hospitalist Referrals Dallas Jacobo M.D. (PCP)
[2016-08-06 08:42] LABS: CALCIUM 8.8 mg/dl (8.5-10.1)
[2016-08-06 08:45] LABS: ALB/GLOB RATIO 1.1 (0.9-2); ALKALINE PHOSPHATASE 130 U/L (45-117); AST/SGOT 18 U/L (15-37)
--- NOTE | 2016-08-06 08:54 | DIAGNOSTIC IMAGING REPORT ---
CHEST ONE VIEW PORTABLE CLINICAL HISTORY: Mid sternal chest pain. COMPARISON STUDY: Chest radiograph June 23, [address] July 27, 2016. FINDINGS: Lung volume are normal. There is no pneumothorax or pleural effusion. Minimal bibasilar opacities favor atelectasis. There is no evidence of pulmonary edema. Cardiomediastinal silhouette is normal. IMPRESSION: 1. No acute cardiopulmonary findings. 2. Mild bibasilar opacities which favor atelectasis. Electronically signed by: Kristian Malone M.D. 08/06/2016 8:52 AM Dictated Date/Time: 08/06/2016 8:50 AM
[2016-08-06] MEDS ORDERED: MoRPHine SULFATE 2 MG/ML CARP IV PRN (12:00)
[2016-08-06] MEDS ORDERED: ACETAMINOPHEN 325 MG TAB PO PRN (12:00)
[2016-08-06] MEDS ORDERED: METOPROLOL TARTRATE 1 MG/ML VIAL IV PRN (12:00)
[2016-08-06] MEDS ORDERED: ONDANSETRON INJ 2 MG/ML 2 ML VIAL IV PRN ×2 (12:00→16:00)
[2016-08-06] MEDS ORDERED: ALUMINUM/MAGNESIUM/SIMETH (MAALOX MAX) 30 ML UDC PO PRN (12:00)
[2016-08-06] MEDS ORDERED: MAGNESIUM HYDROXIDE SUSP 30 ML UDC PO PRN (12:00)
[2016-08-06] MEDS ORDERED: HydrALAZINE HCL 20 MG/ML VIAL IV. PRN (12:00)
[2016-08-06] MEDS ORDERED: POLYETHYLENE (MIRALAX) 17 GM PACK PO PRN (12:00)
[2016-08-06] MEDS ORDERED: NITROGLYCERIN 0.4 MG SL PER TAB CHARGE SL PRN (12:00)
[2016-08-06] MEDS ORDERED: IV FLUIDS COMPLETED PRN (12:15)
[2016-08-06 12:21] VITALS: O2SAT 96; Ht 177.8 cm; Wt 86.3 kg
--- NOTE | 2016-08-06 12:25 | History and Physical ---
History & Physical Date & Time of Service: Aug 06, 2016 at 12:03 Chief Complaint: Chest Pain Primary Care Physician: Dallas Jacobo M.D. History of Present Illness Source: patient, family (Daughter), clinic records, hospital records Patient is a pleasant 86 y/o M w/Hx PVD, CKD 3, HTN, HPL, and PVD, who presented to the ED because of chest discomfort x1 day. Chest discomfort started this AM. Pain spans across entire chest. Pain is described as an ache. Does not come and go/radiate. No alleviating/aggravating factors. Patient was admitted on 06/23/16 due to similar symptoms. At that time, he was placed on Protonix. His BB was discontinued due to noted AV block. Patient followed-up with Dr. Quarles after discharge w/ no changes in medications or further recommendations. Patient completed his Protonix 1 week ago. He denies eating any breakfast this morning. According to the daughter, patient has been complaining of fulling lousy since 08/03. +bilateral lower extremity swelling- at baseline per patient. Patient denies any fever, chills, sweats, lightheadedness, dizziness, vision changes, palpitations, SOB, wheezing, cough, abdominal pain, nausea, vomiting, diarrhea, urinary symptoms, melena, numbness/ tingling, weakness, muscle/joint pain, anxiety/depression, active bleeding, or new skin discoloration/changes. Past Medical/Surgical History Medical Problems: GERD Second degree AV block CKD, stage III HTN h/o colon carcinoma h/o T2DM Glaucoma h/o gout PVD Social History Smoking Status: Former Smoker Drug Use: none Marital Status: Housing status: lives alone Occupational Status: retired Immunizations History of Influenza Vaccine: Yes Influenza Vaccine Date: Feb 14, 2012 History of Tetanus Vaccine?: Yes Tetanus Immunization Date: Jun 30, 2012 History of Pneumococcal: Yes Pneumococcal Date: Jan 13, 2010 History of Hepatitis B Vaccine: No Multi-Drug Resistant Organisms History of MDRO: No Allergies Coded Allergies: Amoxicillin (Verified Allergy, Severe, HIVES; ANGIOEDEMA, 04/04/15) Lisinopril (Verified Allergy, Mild, HIVES, 04/04/15) Penicillins (Verified Allergy, Mild, HIVES, 04/04/15) Home Medications Scheduled Atorvastatin (Atorvastatin Calcium), 10 MG PO DAILY Cilostazol (Pletal), 100 MG PO BID Dipyridamole/Aspirin (Aggrenox 25-200 mg), 1 CAP PO BID Dutasteride (Dutasteride), 0.5 MG PO BID Escitalopram Oxalate (Escitalopram Oxalate), 10 MG PO DAILY Furosemide (Furosemide), 20 MG PO BID Gabapentin (Gabapentin), 300 MG PO DAILY Magnesium Chloride (Mag64), 1 TAB PO DAILY Potassium Chloride Microencaps (Potassium Chloride Er), 20 MEQ PO DAILY Physical Exam Vital Signs Date Time Temp Pulse Resp B/P Pulse Ox O2 Delivery O2 Flow Rate FiO2 08/06/16 11:45 85 20 169/84 96 Room Air 08/06/16 11:25 116 24 130/81 93 Room Air 08/06/16 09:42 89 18 140/84 97 Room Air 08/06/16 08:00 97 Room Air 08/06/16 08:00 36.4 96 20 168/89 96 Room Air General Appearance: no apparent distress Head: normocephalic, atraumatic Eyes: normal inspection, PERRL ENT: hearing grossly normal Neck: supple Respiratory/Chest: lungs clear, no respiratory distress, no accessory muscle use Cardiovascular: regular rate, rhythm Abdomen/GI: normal bowel sounds, non tender, soft Extremities/Musculoskelatal: no calf tenderness, + swelling (+1 pitting edema of bilateral lower extremities ), + pertinent finding (erythema noted to bilateral ) Neurologic/Psych: alert, normal mood/affect, oriented x 3 Skin: normal color, warm/dry, no rash Diagnostics Laboratory Results Results Past 24 Hours Test 08/06/16 07:25 08/06/16 08:41 08/06/16 09:40 Range/Units White Blood Count 7.43 4.8-10.8 K/uL Red Blood Count 4.14 4.7-6.1 M/uL Hemoglobin 14.7 14.0-18.0 g/dL Hematocrit 42.4 42-52 % Mean Corpuscular Volume 102.4 80-100 fL Mean Corpuscular Hemoglobin 35.5 25-34 pg Mean Corpuscular Hemoglobin Concent 34.7 32-36 g/dl RDW Standard Deviation 49.4 36.4-46.3 fL RDW Coefficient of Variation 13.1 11.5-14.5 % Platelet Count 166 130-400 K/uL Mean Platelet Volume 9.9 7.4-10.4 fL Prothrombin Time 10.8 9.0-12.0 SECONDS Prothromb Time International Ratio 1.0 0.9-1.1 Activated Partial Thromboplast Time 35.1 21.0-31.0 SECONDS Partial Thromboplastin Ratio 1.4 Sodium Level 137 136-145 mmol/L Potassium Level 3.8 3.5-5.1 mmol/L Chloride Level 108 98-107 mmol/L Carbon Dioxide Level 14 21-32 mmol/L Anion Gap 15.0 3-11 mmol/L Blood Urea Nitrogen 37 7-18 mg/dl Creatinine 2.00 0.60-1.40 mg/dl Estimated GFR () 34.3 Estimated GFR (Non- 29.6 BUN/Creatinine Ratio 18.6 10-20 Random Glucose 134 70-99 mg/dl Calcium Level 8.8 8.5-10.1 mg/dl Total Bilirubin 0.4 0.2-1 mg/dl Aspartate Amino Transf (AST/SGOT) 18 15-37 U/L Alanine Aminotransferase (ALT/SGPT) 25 12-78 U/L Alkaline Phosphatase 130 45-117 U/L Total Creatine Kinase 60 39-308 U/L Creatine Kinase MB 2.4 0.5-3.6 ng/ml Creatine Kinase MB Ratio 4.0 0-3.0 Troponin I < 0.015 0-0.045 ng/ml Total Protein 7.6 6.4-8.2 gm/dl Albumin 3.9 3.4-5.0 gm/dl Globulin 3.7 2.5-4.0 gm/dl Albumin/Globulin Ratio 1.1 0.9-2 Bedside Troponin I 0.000 0.010 0-0.045 ng/ml Diagnostic Radiology CHEST ONE VIEW PORTABLE CLINICAL HISTORY: Mid sternal chest pain. COMPARISON STUDY: Chest radiograph June 23, [address] July 27, 2016. FINDINGS: Lung volume are normal. There is no pneumothorax or pleural effusion. Minimal bibasilar opacities favor atelectasis. There is no evidence of pulmonary edema. Cardiomediastinal silhouette is normal. IMPRESSION: 1. No acute cardiopulmonary findings. 2. Mild bibasilar opacities which favor atelectasis. Electronically signed by: Kristian Malone M.D. 08/06/2016 8:52 AM Dictated Date/Time: 08/06/2016 8:50 AM The status of this report is Signed. Draft = Not yet reviewed or approved by Radiologist. EKG DEEPAK KAUR ID:[id number] 06-AUG-2016 08:00:20 [facility] Normal sinus rhythm Left axis deviation Septal infarct , age undetermined Inferior infarct , age undetermined Abnormal ECG When compared with ECG of 23-JUN-2016 14:48, No significant change was found 25mm/s 10mm/mV 150Hz 8.0 SP2 12SL 241 SEAN: 9 Referred by: Referred Self Unconfirmed Vent. rate 95 BPM PA interval 190 ms QRS duration 78 ms QT/QTc 372/467 ms P-R-T axes 73 -41 74 1930 (86 yr) Male 0lb Room: Loc:15 Backing In Machine Tender:ANTONIETA Cordero ind: Impression Assessment and Plan 86 y/o M w/Hx PVD, CKD 3, HTN, HPL, and PVD, who presented to the ED because of chest discomfort x1 day. Chest discomfort, ?secondary to acute cardiac event vs GERD: - Admit tele for cardiac monitoring - Trend cardiac enzymes- initial trop negative - EKG- no acute changes - ?GERD: Protonix 40 mg BID - IV Metoprolol 5 mg PRN HR >120 - IV Morphine 1 mg PRN q4 hrs for pain - Consulted cardiology, appreciate recommendations--> will defer to cardiac for further recommendations on medication/additional cardiac workup h/o Second degree AV block- noted CKD, stage III- STABLE: - IV NSS @ 80 ml/hr x1 bag- hold dose of Lasix BID tonight and resume tomorrow AM - Follow PRP HTN: Hydralazine 10 mg IV q6 hrs PRN Hyperlipidemia: Continue Lipitor 10 mg daily PVD: Continue Aggrenox 1 cap BID, Lipitor 10 mg PO daily, and Pletal 100 mg BID Urinary retention: Continue Dutasteride 0.5 mg BID GI Prophylaxis: Protonix BID, Maalox PRN, IV Zofran PRN, Colace and/or Milk of Mag PRN DVT prophylaxis: Heparin 5000 units SQ q12 hrs, PATRICK and SCDs Code Status: LEVEL I, FULL Dispo: From home, lives alone. PT/OT evaluations and director of social media marketing consulted Level of Care Telemetry Resuscitation Status FULL RESUSCITATION VTE Prophylaxis VTE Risk Assessment Done? Y/N: Yes Risk Level: Moderate Given or contraindicated: Unfractionated heparin SQ, T.E.D. Stockings, SCD's
[2016-08-06] MEDS ORDERED: ONDANSETRON INJ 2 MG/ML 2 ML VIAL ONE (12:38)
[2016-08-06 13:45] VITALS: BP 184/70; PULSE 91; TEMP 36.5; O2SAT 96
[2016-08-06] MEDS: SODIUM CHLORIDE 0.9% 1000ML 1,000 ML IV SCH (13:48)
[2016-08-06] MEDS: PANTOprazole INJ 40 MG in SYRINGE 0 ML IV SCH ×2 (14:28→19:45)
[2016-08-06 15:09] VITALS: BP 164/85; PULSE 82; TEMP 36.4; O2SAT 97
[2016-08-06] MEDS: AVODART - ORDER AWAITING ACTION SCH (15:40)
--- NOTE | 2016-08-06 16:22 | GASTROINTESTINAL CONSULTATION ---
DATE OF CONSULTATION: 08/06/2016 REASON FOR EVALUATION: Chest pain and coffee-ground emesis. HISTORY OF PRESENT ILLNESS: The patient is an 86-year-old male who awoke around 2:00 in the morning with midsternal chest pain. This was associated with some mild shortness of breath, diaphoresis and some nausea, lasted 5-10 minutes and vomited about a couple tablespoons of what appeared to be like coffee-ground material. The patient had been on aspirin and was switched to Aggrenox. He does not take any nonsteroidals. He has had no abdominal pain, no change in bowels. No visible blood in his stools. He presents for further evaluation. PAST MEDICAL HISTORY: Remarkable for hypertension, history of right-sided colon cancer in 2011, status post right colectomy. He has had a cholecystectomy. He has diabetes. He has coronary disease with a second-degree heart block, history of gastroesophageal reflux, glaucoma, gout, hyperlipidemia, peripheral vascular disease. MEDICATIONS: Atorvastatin, Pletal, Aggrenox, Dutasteride, escitalopram, furosemide, gabapentin, magnesium and potassium. ALLERGIES: AMOXICILLIN, LISINOPRIL AND PENICILLIN. FAMILY HISTORY: Noncontributory. SOCIAL HISTORY: The patient is a former smoker. He is retired and lives at home. He is . REVIEW OF SYSTEMS: Currently negative for 12 systems. PHYSICAL EXAMINATION: GENERAL: The patient appears awake, alert, in no acute distress. VITAL SIGNS: Blood pressure is 170/84, pulse 85 and regular. SKIN: Is dry. HEENT: Mouth shows a full upper plate. LUNGS: Clear. HEART: Showed a normal S1 and S2 with a regular rate and rhythm without murmurs, rubs, or gallops. ABDOMEN: Shows a right upper quadrant scar and a midline scar. There is a little bit of an incisional hernia in the upper part of the midline incisional scar. LABORATORY: Shows hemoglobin of 14.7, hematocrit 42.4, MCV is 102. IMPRESSION: The patient presents with chest pain suspicious for cardiac ischemia. He also had an episode of vomiting, it is questionable whether it contained blood or not. The patient's blood count is currently normal and he has had no GI symptoms other than the vomiting associated with this chest pain. Once his cardiac evaluation is completed and depending on what is found, we may consider to perform an upper endoscopy if his heart evaluation is found to be suitable for sedation and endoscopy. We will continue to follow this patient during his hospital stay.
[2016-08-06] MEDS: DIPYRIDAMOLE/ASPIRIN CAP PO SCH (19:28)
[2016-08-06] MEDS: CILOSTAZOL 100 MG TAB PO SCH (19:28)
[2016-08-06] MEDS: HEPARIN SOD 5000 UNIT/0.5 ML CARP SQ SCH (19:29)
[2016-08-06] MEDS ORDERED: FUROSEMIDE 20 MG TAB PO SCH (21:00)
[2016-08-06] MEDS ORDERED: PANTOprazole SOD 40 MG TAB PO SCH (21:00)
--- NOTE | 2016-08-06 21:53 | DIAGNOSTIC IMAGING REPORT ---
ULTRASOUND RIGHT UPPER QUADRANT ABDOMEN CLINICAL HISTORY: Right upper quadrant abdominal pain. COMPARISON STUDY: Abdominal CT dated 07/27/2016. TECHNIQUE: Real-time, grayscale, and color flow sonography of the right upper quadrant of the abdomen was performed. Images are reviewed in the transverse and longitudinal planes. FINDINGS: Liver: The liver is normal in size and echotexture. There is mild central intrahepatic biliary ductal dilatation. The main portal vein is patent. Gallbladder: The gallbladder is surgically absent. The common bile duct measures up to 0.6 cm in diameter. Pancreas: Not well visualized due to overlying bowel gas. Right kidney: Survey images of the right kidney demonstrate cortical atrophy. There is no hydronephrosis. A 2 cm cyst is noted in the lower pole. Ascites: None. IMPRESSION: No acute sonographic abnormality is identified in the right upper quadrant noting status post cholecystectomy. Electronically signed by: Luther Pardo M.D. 08/06/2016 9:51 PM Dictated Date/Time: 08/06/2016 9:49 PM
[2016-08-06 23:07] VITALS: BP 155/66; PULSE 84; TEMP 36.7; O2SAT 96
[2016-08-07] VITALS (9 sets, daily range): BP systolic 143–161; BP diastolic 68–77; PULSE 74–88; TEMP 36.3–36.6; O2SAT 96–99
[2016-08-07] MEDS: SODIUM CHLORIDE 0.9% 1000ML 1,000 ML IV SCH ×2 (00:44→15:06)
[2016-08-07 07:00] LABS: BUN/CREATININE RATIO 16.2 (10-20); CALCIUM 8.5 mg/dl (8.5-10.1); CREATININE 1.7 mg/dl (0.60-1.40); MAGNESIUM 2.5 mg/dl (1.8-2.4); POTASSIUM 3.7 mmol/L (3.5-5.1)
[2016-08-07] MEDS: AVODART - ORDER AWAITING ACTION SCH ×2 (08:00→16:00)
[2016-08-07] MEDS: PANTOprazole INJ 40 MG in SYRINGE 0 ML IV SCH ×2 (08:24→20:43)
[2016-08-07] MEDS: FUROSEMIDE 20 MG TAB PO SCH ×2 (08:24→17:25)
[2016-08-07] MEDS: MAGNESIUM CHLORIDE 64MG DELAYED REL TAB PO SCH (08:25)
[2016-08-07] MEDS: ESCITALOPRAM OXALATE 10 MG TAB PO SCH (08:25)
[2016-08-07] MEDS: GABAPENTIN 300 MG CAP PO SCH (08:25)
[2016-08-07] MEDS: ATORVASTATIN 10 MG TAB PO SCH (08:25)
[2016-08-07] MEDS: POTASSIUM CHLORIDE 20 MEQ TABCR PO SCH (08:27)
[2016-08-07] MEDS: HEPARIN SOD 5000 UNIT/0.5 ML CARP SQ SCH ×2 (08:31→20:47)
[2016-08-07] MEDS: CILOSTAZOL 100 MG TAB PO SCH ×2 (09:00→20:42)
[2016-08-07] MEDS: DIPYRIDAMOLE/ASPIRIN CAP PO SCH ×2 (09:00→20:43)
[2016-08-07] MEDS ORDERED: ATROPINE SULFATE 0.1 MG/ML 5ML SYR ONE (13:51)
[2016-08-07] MEDS ORDERED: DOBUTamine HCL 12.5 MG/ML 20 ML VIAL ONE (13:51)
[2016-08-07] MEDS ORDERED: METOPROLOL TARTRATE 1 MG/ML VIAL ONE (13:52)
--- NOTE | 2016-08-07 15:07 | DOBUTAMINE ECHO ---
*NOTICE TO RECEIVING LIBERTARIAN AGENCY This information is strictly Confidential and protected under [place] law. [place] law prohibits you from making any further disclosure of this information unless further disclosure is expressly permitted by the written consent of the person to whom it pertains or is authorized by law. A general authorization for the release of medical or other information is not sufficient for this purpose. Hospital accepts no responsibility if the information is made available to any other person, INCLUDING THE PATIENT. Interpretation Summary * Name: DEEPAK KAUR Study Date: 08/07/2016 01:03 PM BP: 140/67 mmHg * Patient Location: C.2T\\S\\S230\\S\\2 HR: 84 * : 1930 (M/d/yyyy) Gender: Male Height: 70 in * Age: 86 yrs Ethnicity: [place] Weight: 190 lb * Ordering Physician: Pasha Hyman * Referring Physician: Self, Referred * Performed By: Regla García RDCS * * Reason For Study: CHEST PAIN * BSA: 2.0 m2 * History: CHEST PAIN * -- Conclusions -- * Left ventricular systolic function is normal. * The transmitral spectral Doppler flow pattern is normal for age. * There is moderate to severe mitral annular calcification. * Right ventricular systolic pressure is normal. * Diagnostic stress echocardiogram without evidence of inducible ischemia. Procedure Details * A contrast injection of Definity was performed to improve assessment of LV function. * Contrast was injected into an intravenous site in the left arm. * One vial of Definity ultrasound contrast was diluted in normal saline to a total volume of 10 ml. A total of '6' ml of solution was administered during imaging. * Lot # [id number] of Definity utilized for procedure. * Expiration date 1 JUN 02. * The attending nurse who injected the contrast agent was CHANTELLE JORDAN RN. Left Ventricular Findings with Stress * Diagnostic stress echocardiogram without evidence of inducible ischemia. Left Ventricle * The left ventricle is grossly normal size. * Ejection Fraction = 60-65%. * Left ventricular systolic function is normal. * The transmitral spectral Doppler flow pattern is normal for age. * The left ventricular wall motion is normal. Right Ventricle * The right ventricle is normal in size and function. Mitral Valve * There is moderate to severe mitral annular calcification. * Calcified mitral apparatus. * There is no mitral valve stenosis. * There is no mitral regurgitation noted. Tricuspid Valve * The tricuspid valve is not well visualized, but is grossly normal. * There is mild tricuspid regurgitation. * Right ventricular systolic pressure is normal. Aortic Valve * Aortic valve sclerosis mild, without significant aortic valvular stenosis. * No hemodynamically significant valvular aortic stenosis. * There is no significant aortic regurgitation. Pericardium * There is no pericardial effusion. Stress Parameters * Normal baseline electrocardiogram. * Stress ECG: No ST changes. No arrhythmias. * The stress portion of this study was personally supervised by the undersigned interpreting physician. * Rest heart rate was '84' BPM. * Rest blood pressure was '140/67' * Maximum heart rate achieved was 137 bpm. * Maximum heart rate was 101 % of maximum age-predicted heart rate. * Maximum blood pressure was '175/47' * Maximum Dobutamine infusion rate was '30' mcg/kg/min. * Dobutamine infusion was terminated due to achieving target heart rate * A total of 5 mg of IV Metoprolol was administered to reverse Dobutamine-induced tachycardia. Left Ventricular Findings with Stress * Normal baseline EKG without EKG changes suggestive of ischemia Rare PVCs with maximum dobutamine infusion Echo normal at baseline without inducible wall motion abnormalities. Patient reported feeling "tough" during infusion and had a very brief (fleeting) sensationj of his index symptom of chest pain. MMode 2D Measurements and Calculations LVAd ap4 26.5 cm\\S\\2 LVLd ap4 7.9 cm EDV(MOD-sp4) 74.0 ml EDV(sp4-el) 75.3 ml LVAs ap4 17.1 cm\\S\\2 LVLs ap4 7.0 cm ESV(MOD-sp4) 35.0 ml ESV(sp4-el) 35.2 ml EF(MOD-sp4) 52.6 % EF(sp4-el) 53.2 % LVAd ap2 23.9 cm\\S\\2 LVLd ap2 7.8 cm EDV(MOD-sp2) 59.9 ml EDV(sp2-el) 62.0 ml LVAs ap2 13.8 cm\\S\\2 LVLs ap2 6.8 cm ESV(MOD-sp2) 24.4 ml ESV(sp2-el) 23.7 ml EF(MOD-sp2) 59.3 % EF(sp2-el) 61.7 % LVLd %diff -1.82 % EDV(MOD-bp) 66.1 ml LVLs %diff -3.46 % ESV(MOD-bp) 29.7 ml EF(MOD-bp) 55.1 % SV(MOD-sp4) 38.9 ml SI(MOD-sp4) 19.1 ml/m\\S\\2 SV(MOD-sp2) 35.5 ml SI(MOD-sp2) 17.4 ml/m\\S\\2 SV(MOD-bp) 36.4 ml SI(MOD-bp) 17.8 ml/m\\S\\2 SV(sp4-el) 40.1 ml SI(sp4-el) 19.6 ml/m\\S\\2 SV(sp2-el) 38.3 ml SI(sp2-el) 18.7 ml/m\\S\\2 Doppler Measurements and Calculations MV E max steven 88.8 cm/sec MV A max steven 152.4 cm/sec MV E/A 0.58 MV dec time 0.40 sec Ao V2 max 120.8 cm/sec Ao max PG 5.8 mmHg Ao max PG (full) 1.7 mmHg LV V1 max PG 4.2 mmHg LV V1 max 102.2 cm/sec TR max steven 231.3 cm/sec
--- NOTE | 2016-08-07 15:08 | Progress Note ---
Subjective Date of Service: Aug 07, 2016. Subjective Pt evaluation today including: conversation w/ patient, conversation w/ family , physical exam, chart review, lab review, review of studies, conversation w/ international travel consultant, review of inpatient medication list Doing well, no chest pain, no nausea vomiting, no other complaining, had a stress test done Problem List Medical Problems: (1) Acute chest pain Status: Acute (2) Elevated serum creatinine Status: Acute (3) Precordial chest pain Status: Acute Review of Systems Constitutional: No chills, No fatigue, No fever, No problem reported, No sweats , No weakness, No weight loss Eyes: No diplopia, No discharge, No eye pain, No redness, No worsening of vision ENT: No dental problems, No hearing loss, No nasal symptoms, No sore throat, No tinnitus, No trouble swallowing, No unusual epistaxis Respiratory: No cough, No dyspnea at rest, No dyspnea on exertion, No hemoptysis, No shortness of breath, No sputum, No wheezing Cardiac: No PND, No chest pain, No claudication, No edema, No orthopnea, No palpitations Abdomen: No constipation, No diarrhea, No nausea, No pain, No vomiting Musculoskeletal: No calf pain, No joint pain, No muscle pain, No swelling Male : No dysuria, No hematuria, No incontinence, No nocturia more than once/ night, No slowing stream, No urinary frequency Neurologic: No balance problems, No memory loss, No numbness/tingling, No paralysis, No vertigo, No weakness Psychiatric: No anhedonism, No anxiety, No depression symptoms, No insomnia, No substance abuse Heme: No abnormal bleeding/bruising, No clotting problems, No night sweats, No swollen lymph nodes Endo: No excessive thirst, No excessive urination, No fatigue Skin: No bleeding, No color change, No itch, No new/changing skin lesions, No rash Objective Vital Signs Date Time Temp Pulse Resp B/P Pulse Ox O2 Delivery O2 Flow Rate FiO2 08/07/16 12:00 Room Air 08/07/16 11:29 36.5 77 18 143/69 96 Room Air 08/07/16 08:00 Room Air 08/07/16 07:42 36.6 86 18 152/70 96 Room Air 08/07/16 04:00 Room Air 08/07/16 03:32 36.6 88 19 161/74 97 Room Air 08/07/16 00:00 Room Air 08/06/16 23:07 36.7 84 19 155/66 96 Room Air 08/06/16 20:00 Room Air 08/06/16 16:00 Room Air 08/06/16 15:09 36.4 82 18 164/85 97 Room Air Physical Exam General Appearance: WD/WN, no apparent distress Eyes: normal inspection, PERRL, EOMI, sclerae normal ENT: normal ENT inspection, hearing grossly normal, pharynx normal Neck: supple, no adenopathy, thyroid normal, no JVD, no carotid bruits, trachea midline Respiratory/Chest: chest non-tender, lungs clear, normal breath sounds, no respiratory distress, no accessory muscle use Cardiovascular: regular rate, rhythm, no edema, no gallop, no JVD, no murmur Abdomen: normal bowel sounds, non tender, soft, no organomegaly, no pulsatile mass Extremities: normal range of motion, non-tender, normal inspection, no pedal edema, no calf tenderness, normal capillary refill, pelvis stable Neurologic/Psychiatric: dark room attendant II-XII nml as tested, no motor/sensory deficits, alert, normal mood/affect, oriented x 3 Skin: normal color, warm/dry, no rash Lymphatic: no adenopathy Laboratory Results Last 24 Hours Test 08/06/16 22:43 08/07/16 05:21 08/07/16 06:38 08/07/16 11:01 Creatine Kinase MB 2.2 ng/ml Creatine Kinase MB Ratio Troponin I < 0.015 ng/ml Sodium Level 143 mmol/L Potassium Level 3.7 mmol/L Chloride Level 116 mmol/L Carbon Dioxide Level 17 mmol/L Anion Gap 10.0 mmol/L Blood Urea Nitrogen 28 mg/dl Creatinine 1.70 mg/dl Est Creatinine Clear Calc Drug Dose 32.8 ml/min Estimated GFR () 41.7 Estimated GFR (Non- 36.0 BUN/Creatinine Ratio 16.2 Random Glucose 101 mg/dl Calcium Level 8.5 mg/dl Magnesium Level 2.5 mg/dl Bedside Glucose 93 mg/dl 96 mg/dl Assessment and Plan 86-year-old white male admitted in the hospital because of Chest pain on 2016 has recent admission because of Chest pain and Second degree AV block, Hypertension, In previous admission, cardiology see patient, Beta toñito was stopped because of AV block which was resolved after the medicine change, no more chest pain Per cellophane press operator, Although the description of his chest discomfort is compatible with myocardial ischemia but it is feel not cardiac in nature. Cardiology did not recommend any stress test. Cardiology recommended may need half-way monitoring/?pacemaker implantation. Patient need to f/u w/ cardiology outpatient in 1-2 weeks, patient did follow up with cellophane press operator was doing well. Chest pain associated nausea vomiting in the emergency room No more nausea vomiting No more chest Differential diagnosis include cardiac chest pain, GERD, PE, chest pain, comes and goes Need to rule out ACS Cardiac enzyme troponin negative Talk to cardiology Stress test done We'll follow-up results Possible GERD or gastric ulcerative disease, is on Protonix, GI consulted as well Possible EGD or further evaluation by GI service after clear cellophane press operator We'll follow-up the stress test results After stress test, Talk to cellophane press operator, will follow report stress test is negative, feel okay for Gi to have further evaluations such as EGD We'll keep nothing by mouth for now GI and DVT prophylaxis is covered Continued [facility] stay due to: multiple IV medications needed Discharge planning: home
--- NOTE | 2016-08-07 15:59 | GASTROINTESTINAL CONSULTATION ---
DATE OF CONSULTATION: 08/07/2016 GASTROENTEROLOGY INPATIENT PROGRESS NOTE SUBJECTIVE: The patient was down for his dobutamine stress test at the time of my visit to his room. His daughter was in the room. At the present time, the patient was n.p.o. undergoing his stress test. I did recommend that if it is possible and if there is an appropriate cardiac clearance following the tests and if the patient is n.p.o., we can attempt to perform the upper endoscopy later this afternoon. She was agreeable and appreciated that this attempt could be made. I did speak with Dr. Aguilera, short time ago and he reports that the stress test was satisfactory and that it was acceptable to proceed with upper endoscopy later today, if necessary. Will confirm that the patient is n.p.o. status on the floor prior to calling the patient down to endoscopy and order was placed for upper endoscopy later today by me. PHYSICAL EXAMINATION: VITAL SIGNS: Reviewed and the patient's blood pressure 144/77, respirations 20, heart rate 74. He is afebrile at 36.3, 99% on room air. LABORATORY STUDIES: Showed a white count yesterday of 7.4, hemoglobin 14.7, MCV is 102, platelets 166,000. Chemistries showed a potassium of 3.7 this morning at 5:00 a.m. His BUN and creatinine are slightly elevated at 28 and 1.7. His magnesium is high at 2.5. Troponins are negative as her CK-MB. Will obtain consent before the procedure, to be performed an endoscopy. All questions answered.
[2016-08-07] MEDS ORDERED: LIDOCAINE HCL 2% 2 ML VIAL (20MG/ML) ONE (16:02)
[2016-08-07] MEDS ORDERED: PROPOFOL IV EMULSION 10 MG/ML 20 ML VIAL IV ONE (16:02)
--- NOTE | 2016-08-07 16:38 | GI REPORT ---
Procedure Date: 08/07/2016 4:10 PM Procedure: Upper GI endoscopy Indications: Suspected gastro-esophageal reflux disease, Unexplained chest pain Medicines: Propofol per Anesthesia Complications: No immediate complications. Estimated blood loss: Minimal. Estimated Blood Loss: Estimated blood loss was minimal. Estimated blood loss was minimal. Procedure: Pre-Anesthesia Assessment: - Prior to the procedure, a History and Physical was performed, and patient medications and allergies were reviewed. The patient's tolerance of previous anesthesia was also reviewed. The risks and benefits of the procedure and the sedation options and risks were discussed with the patient. All questions were answered, and informed consent was obtained. Prior Anticoagulants: The patient has taken no previous anticoagulant or antiplatelet agents. ASA Grade Assessment: III - A patient with severe systemic disease. After reviewing the risks and benefits, the patient was deemed in satisfactory condition to undergo the procedure. After obtaining informed consent, the endoscope was passed under direct vision. Throughout the procedure, the patient's blood pressure, pulse, and oxygen saturations were monitored continuously. The Scope was introduced through the mouth, and advanced to the second part of duodenum. The upper GI endoscopy was accomplished without difficulty. The patient tolerated the procedure well. Findings: LA Grade D (one or more mucosal breaks involving at least 75% of esophageal circumference) esophagitis with no bleeding was found 25 to 37 cm from the incisors. Biopsies were taken with a cold forceps for histology. Estimated blood loss was minimal. Estimated blood loss was minimal. Verification of patient identification for the specimen was done by the physician and automation technician using the patient's name and medical record number. A medium-sized hiatus hernia was found. The proximal extent of the gastric folds (end of tubular esophagus) was 37 cm from the incisors. The hiatal narrowing was 40 cm from the incisors. The Z-line was 37 cm from the incisors. The entire examined stomach was normal. The examined duodenum was normal. The cardia and gastric fundus were normal on retroflexion. Impression: - LA Grade D reflux esophagitis. Biopsied. Requested CMV and HSV staining in addition to histology - Medium-sized hiatus hernia. - Normal stomach. - Normal examined duodenum. Recommendation: - [facility] patient to [facility]. - Use a proton pump inhibitor PO BID. - Use sucralfate suspension 1 gram PO BID for 2 weeks. - Await pathology results. - Repeat the upper endoscopy in 3 months to check healing. MD George Salter MD 08/07/2016 4:36:11 PM This report has been signed electronically. Note Initiated On: 08/07/2016 4:10 PM I attest to the content of the Intraoperative Record and orders documented therein, exceptions below
--- NOTE | 2016-08-07 16:47 | Anesthesiology Progress Note ---
Anesthesia Post Op Note Date & Time Aug 07, 2016 at 16:47 Vital Signs Pain Intensity: 0.0 Vital Signs Past 12 Hours Date Time Temp Pulse Resp B/P Pulse Ox O2 Delivery O2 Flow Rate FiO2 08/07/16 16:30 70 18 98/43 100 Mask 10 08/07/16 16:03 36.6 67 18 158/75 98 Room Air 08/07/16 15:35 36.3 74 144/77 99 Room Air 08/07/16 15:32 75 99 08/07/16 15:18 36.3 74 20 144/77 99 Room Air 08/07/16 12:00 Room Air 08/07/16 11:29 36.5 77 18 143/69 96 Room Air 08/07/16 08:00 Room Air 08/07/16 07:42 36.6 86 18 152/70 96 Room Air Notes Mental Status: alert / awake / arousable, participated in evaluation Pt Amnestic to Procedure: Yes Nausea / Vomiting: adequately controlled Pain: adequately controlled Airway Patency, RR, SpO2: stable & adequate BP & HR: stable & adequate Hydration State: stable & adequate Anesthetic Complications: no major complications apparent
--- NOTE | 2016-08-07 17:43 | CARDIOLOGY CONSULTATION ---
DATE OF CONSULTATION: 08/07/2016 REFERRING PHYSICIAN: Dr. Trever Bland. CHIEF COMPLAINT: Chest pain. HISTORY OF PRESENT ILLNESS: Mr. Danny Mckeon is an 86-year-old gentleman who was admitted to [facility] originally in June with symptoms of chest discomfort. At that time, the patient was noted to have extended episodes of a pressure sensation in his chest that came on spontaneously. These episodes did not radiate to his arms or jaw. He had no radiation to his back and is not associated with symptoms of significant dyspnea or diaphoresis, but he did have an element of dizziness with these episodes. He had an evaluation in the hospital to include cardiac biomarkers and despite extended episodes of chest discomfort, did not have any elevation in these biomarkers. As such, no particular cardiac testing was performed and this was presumed to be noncardiac in nature. Since his discharge, the patient states that he continues to have episodes of this nature, although they last for a brief period of time, generally several minutes. The episodes themselves are similar in character and wax and wane with respect to severity. They are not associated with exertion. They do not appear to be positional in nature or associated with eating. Yesterday morning approximately 02:00 a.m., the patient had a fairly severe episode, much more severe than previously described. The character of the pain was the same and lasted for about 10 minutes. The patient subsequently had an episode which prompted him to go to [facility] Emergency Room. In the Emergency Room, he continued to have similar chest discomfort. At that point, he vomited however and was admitted to the hospital for possible gastroesophageal problem. The patient states that his symptoms resolved spontaneously shortly after he arrived on the floor yesterday. The patient is an active individual around his house, but has some difficulty with ambulation. He uses a cane and a walker on occasion. He does not perform any strenuous forms of exercise. He denies significant orthopnea or paroxysmal nocturnal dyspnea. He has not had any recent sensations of palpitations or tachycardia. He did have some mild dizziness during his last admission, but none recently. He has not suffered a recent syncopal episode. He has some mild edema in his lower extremities, left worse than right, but this is chronic in nature and unchanged recently. PAST MEDICAL HISTORY: Significant for: 1. Hypertension. 2. Diabetes mellitus. 3. Gastroesophageal reflux disease. 4. Hyperlipidemia. 5. History of colon cancer with gastrointestinal hemorrhage. 6. Glaucoma. 7. Gout. 8. Depression. 9. Benign prostatic hypertrophy. 10. History of second-degree AV block, currently resolved. 11. Chronic renal insufficiency, stage III. PAST SURGICAL HISTORY: Includes abdominal aortic aneurysm repair, appendectomy, cholecystectomy, incisional hernia repair, and partial colectomy. FAMILY HISTORY: Noncontributory due to his advanced age. No history of premature coronary artery disease. SOCIAL HISTORY: The patient has a remote history of tobacco abuse, currently nonsmoker. No history of alcohol abuse. Currently lives alone. OUTPATIENT MEDICATIONS: Include allopurinol, Aggrastat, atorvastatin, cilostazol, dutasteride, escitalopram, furosemide, Neurontin, pantoprazole, and potassium supplementation. MEDICAL ALLERGIES: INCLUDE AMOXICILLIN, WHICH PRODUCED HIVES; LISINOPRIL PRODUCED HIVES AND PENICILLIN PRODUCED HIVES. REVIEW OF SYSTEMS: A complete 10-system review of systems was performed and the pertinent positives are noted in the history of present illness, the remainder being negative. He reports no constitutional symptoms recently with the exception of some mild upper respiratory congestion. He does have a morning cough, which resolves promptly. He has not had any change in his bowel or bladder habits recently. He denies any indigestion or change in his eating habits. PHYSICAL EXAMINATION: GENERAL: He was alert and oriented. His mood and affect appeared normal. He answered all questions appropriately. CURRENT VITAL SIGNS: Include blood pressure of 143/69 with a pulse of 77. HEENT: His sclerae are anicteric. His pupils equal and react to light and accommodation. Extraocular movements were intact. NECK: Palpation of submandibular region did not reveal any significant lymphadenopathy. The carotids are palpable bilaterally. I do not appreciate any bruits on auscultation. There is no evidence of jugular venous distention. Thyroid is not enlarged. LUNGS: Auscultation of both lungs reveal them to be clear. There were no rales, wheezes or rhonchi. He had good respiratory effort without use of accessory muscles. CARDIAC: Revealed him to be in a regular rhythm. S1 and S2 appeared to be normal. I did not appreciate any murmurs on exam. There was no displacement of the PMI on palpation. ABDOMEN: Soft and nontender. EXTREMITIES: Evaluation of both wrists revealed radial pulses that were equal in intensity. There is no evidence of cyanosis or clubbing. Evaluation of his lower extremities revealed only trace peripheral edema, perhaps a little worse on the left than the right. There were some trophic changes bilaterally, but no rashes appreciated on exam today. LABORATORY STUDIES: Obtained since admission include a white cell count of 7.4, hemoglobin of 14.7, and a platelet count of 166. Sodium is 143, potassium is 3.7, BUN was 28, and creatinine was 1.7. Serial EKGs were obtained since admission and these revealed the patient to be in a sinus rhythm without any acute ST or T-wave changes. The patient did undergo a single view chest x-ray yesterday, which did not reveal any acute cardiopulmonary process. The patient also had an abdominal ultrasound performed yesterday, which did not reveal any notable abnormality. Serial cardiac biomarkers were normal. ASSESSMENT AND PLAN: 1. Chest pain. The character of the patient's chest pain is certainly concerning for cardiac ischemia, although these symptoms have been relatively chronic and he has had extended episodes with elevation in his cardiac biomarkers. As such, this can generally be discounted as cardiac in nature. He certainly has multiple risk factors for coronary artery disease including his age, hypertension, hyperlipidemia and diabetes. He does not however have exertional symptoms, although he rarely performs at a higher workload. His EKG is essentially unremarkable. Due to the recurrent nature of his symptoms and the continued concern regarding a cardiac source for his symptoms, it would seem reasonable to perform stress testing, keeping in mind that in a patient of this nature, we could uncover a coronary artery disease that may not be related to the symptoms described. In any event, I did discuss the options with the patient and his daughter including the potential concern regarding any results of the testing. We will perform dobutamine stress echocardiography and proceed afterwards, depending on these results. 2. History of second-degree AV block, currently resolved off of his prior medication. This also has resulted in clinical improvement with resolution of his intermittent dizziness.
[2016-08-08] VITALS (10 sets, daily range): BP systolic 146–163; BP diastolic 54–80; PULSE 67–76; TEMP 36.6–36.8; O2SAT 95–99
[2016-08-08] MEDS: SODIUM CHLORIDE 0.9% 1000ML 1,000 ML IV SCH ×2 (02:03→14:48)
[2016-08-08 07:02] LABS: BUN/CREATININE RATIO 12.8 (10-20); CREATININE 1.5 mg/dl (0.60-1.40); POTASSIUM 3.7 mmol/L (3.5-5.1)
[2016-08-08] MEDS: AVODART - ORDER AWAITING ACTION SCH ×3 (08:00→16:00)
[2016-08-08] MEDS ORDERED: PANT40TA PO (08:38)
[2016-08-08] MEDS ORDERED: SUCR1TAB29 PO (08:38)
--- NOTE | 2016-08-08 08:43 | Discharge Instructions ---
Discharge Instructions Date of Service Aug 08, 2016. Admission Reason for Admission: Chest Pain And Av Block, Gerd Discharge Discharge Diagnosis / Problem: GERD w/ esophagitis Discharge Goals Goal(s): Decrease discomfort, Improve disease control, Learn about illness, Diagnostic testing, Therapeutic intervention, Prevent Disease Progression Activity Recommendations Activity Limitations: resume your previous activity . Instructions / Follow-Up Instructions / Follow-Up New medications: 1. Protonix 40 mg by mouth twice per day 2. Carafate 1 gm by mouth twice per day x2 weeks Resume all other regular medications as prescribed to you Please follow-up with your PCP within 5-7 days Please follow-up with Cardiology as instructed by them Please follow-up with Gastroenterology as instructed by them It is recommended you have a repeat EGD in 3 months Please follow-up/keep all of your subspecialty appointments Current Hospital Diet Patient's current hospital diet: Clear Liquid Diet Discharge Diet Recommended Diet: AHA Diet (Heart Healthy) Procedures Procedures Performed: EGD Pending Studies Studies pending at discharge: yes List of pending studies: EGD pathology Laboratory Results Last 24 Hours Test 08/07/16 11:01 08/08/16 05:54 08/08/16 06:23 Bedside Glucose 96 mg/dl 94 mg/dl Sodium Level 144 mmol/L Potassium Level 3.7 mmol/L Chloride Level 116 mmol/L Carbon Dioxide Level 18 mmol/L Anion Gap 10.0 mmol/L Blood Urea Nitrogen 19 mg/dl Creatinine 1.50 mg/dl Est Creatinine Clear Calc Drug Dose 37.2 ml/min Estimated GFR () 48.5 Estimated GFR (Non- 41.9 BUN/Creatinine Ratio 12.8 Random Glucose 85 mg/dl Calcium Level 8.0 mg/dl Medical Emergencies . Who to Call and When: Medical Emergencies: If at any time you feel your situation is an emergency, please call 911 immediately. . Non-Emergent Contact Non-Emergency issues call your: Primary Care Provider . . "Provider Documentation" section prepared by Aissatou So. . VTE Core Measure Inpt VTE Proph given/why not?: Unfractionated heparin SQ, T.E.D. Stockings, SCD 's
--- NOTE | 2016-08-08 08:55 | Discharge Summary ---
Discharge Summary Date of Service Aug 08, 2016. Discharge Summary Admission Date: Aug 06, 2016 at 12:03 Discharge Date: Aug 08, 2016 Discharge Disposition: Home Principal Diagnosis: GERD w/ esophagitis Problems/Secondary Diagnoses: h/o Second degree AV block CKD, stage III HTN Hyperlipidemia PVD Urinary retention Immunizations: Have You Had Influenza Vaccine: Yes Influenza Vaccine Date: Feb 14, 2012 History of Tetanus Vaccine?: Yes Tetanus Immunization Date: Jun 30, 2012 History of Pneumococcal: Yes Pneumococcal Date: Jan 13, 2010 History of Hepatitis B Vaccine: No Procedures: EGD DICTATED BY: George Juarez M.D. Procedure Date: 08/07/2016 4:10 PM Procedure: Upper GI endoscopy Indications: Suspected gastro-esophageal reflux disease, Unexplained chest pain Medicines: Propofol per Anesthesia Complications: No immediate complications. Estimated blood loss: Minimal. Estimated Blood Loss: Estimated blood loss was minimal. Estimated blood loss was minimal. Procedure: Pre-Anesthesia Assessment: - Prior to the procedure, a History and Physical was performed, and patient medications and allergies were reviewed. The patient's tolerance of previous anesthesia was also reviewed. The risks and benefits of the procedure and the sedation options and risks were discussed with the patient. All questions were answered, and informed consent was obtained. Prior Anticoagulants: The patient has taken no previous anticoagulant or antiplatelet agents. ASA Grade Assessment: III - A patient with severe systemic disease. After reviewing the risks and benefits, the patient was deemed in satisfactory condition to undergo the procedure. After obtaining informed consent, the endoscope was passed under direct vision. Throughout the procedure, the patient's blood pressure, pulse, and oxygen saturations were monitored continuously. The Scope was introduced through the mouth, and advanced to the second part of duodenum. The upper GI endoscopy was accomplished without difficulty. The patient tolerated the procedure well. Findings: LA Grade D (one or more mucosal breaks involving at least 75% of esophageal circumference) esophagitis with no bleeding was found 25 to 37 cm from the incisors. Biopsies were taken with a cold forceps for histology. Estimated blood loss was minimal. Estimated blood loss was minimal. Verification of patient identification for the specimen was done by the physician and cardiopulmonary technician using the patient's name and medical record number. A medium-sized hiatus hernia was found. The proximal extent of the gastric folds (end of tubular esophagus) was 37 cm from the incisors. The hiatal narrowing was 40 cm from the incisors. The Z-line was 37 cm from the incisors. The entire examined stomach was normal. The examined duodenum was normal. The cardia and gastric fundus were normal on retroflexion. Impression: - LA Grade D reflux esophagitis. Biopsied. Requested CMV and HSV staining in addition to histology - Medium-sized hiatus hernia. - Normal stomach. - Normal examined duodenum. Recommendation: - [facility]. - Use a proton pump inhibitor PO BID. - Use sucralfate suspension 1 gram PO BID for 2 weeks. - Await pathology results. - Repeat the upper endoscopy in 3 months to check healing. MD George Salter MD 08/07/2016 4:36:11 PM This report has been signed electronically. Note Initiated On: 08/07/2016 4:10 PM I attest to the content of the Intraoperative Record and orders documented therein, exceptions below Dictated: 08/07/16 1610 Signed: 08/07/16 1637 The status of this report is Signed. Draft = Not yet reviewed or approved by Medical Physician. Signed = Reviewed and approved by Medical Physician. Dobutamine stress ECHO Interpretation Summary * Name: DEEPAK KAUR Study Date: 08/07/2016 01:03 PM BP: 140/67 mmHg * Patient Location: [facility]\\S\\S230\\S\\2 HR: 84 * : 1930 (M/d/yyyy) Gender: Male Height: 70 in * Age: 86 yrs Ethnicity: MD Weight: 190 lb * Ordering Physician: Pasha Hyman * Referring Physician: Self, Referred * Performed By: Regla García RDCS * * Reason For Study: CHEST PAIN * BSA: 2.0 m2 * History: CHEST PAIN * -- Conclusions -- * Left ventricular systolic function is normal. * The transmitral spectral Doppler flow pattern is normal for age. * There is moderate to severe mitral annular calcification. * Right ventricular systolic pressure is normal. * Diagnostic stress echocardiogram without evidence of inducible ischemia. Procedure Details * A contrast injection of Definity was performed to improve assessment of LV function. * Contrast was injected into an intravenous site in the left arm. * One vial of Definity ultrasound contrast was diluted in normal saline to a total volume of 10 ml. A total of '6' ml of solution was administered during imaging. * Lot # [id number] of Definity utilized for procedure. * Expiration date JUN 02. * The attending nurse who injected the contrast agent was CHANTELLE JORDAN RN. Left Ventricular Findings with Stress * Diagnostic stress echocardiogram without evidence of inducible ischemia. Left Ventricle * The left ventricle is grossly normal size. * Ejection Fraction = 60-65%. * Left ventricular systolic function is normal. * The transmitral spectral Doppler flow pattern is normal for age. * The left ventricular wall motion is normal. Right Ventricle * The right ventricle is normal in size and function. Mitral Valve * There is moderate to severe mitral annular calcification. * Calcified mitral apparatus. * There is no mitral valve stenosis. * There is no mitral regurgitation noted. Tricuspid Valve * The tricuspid valve is not well visualized, but is grossly normal. * There is mild tricuspid regurgitation. * Right ventricular systolic pressure is normal. Aortic Valve * Aortic valve sclerosis mild, without significant aortic valvular stenosis. * No hemodynamically significant valvular aortic stenosis. * There is no significant aortic regurgitation. Pericardium * There is no pericardial effusion. Stress Parameters * Normal baseline electrocardiogram. * Stress ECG: No ST changes. No arrhythmias. * The stress portion of this study was personally supervised by the undersigned interpreting physician. * Rest heart rate was '84' BPM. * Rest blood pressure was '140/67' * Maximum heart rate achieved was 137 bpm. * Maximum heart rate was 101 % of maximum age-predicted heart rate. * Maximum blood pressure was '175/47' * Maximum Dobutamine infusion rate was '30' mcg/kg/min. * Dobutamine infusion was terminated due to achieving target heart rate * A total of 5 mg of IV Metoprolol was administered to reverse Dobutamine- induced tachycardia. Left Ventricular Findings with Stress * Normal baseline EKG without EKG changes suggestive of ischemia Rare PVCs with maximum dobutamine infusion Echo normal at baseline without inducible wall motion abnormalities. Patient reported feeling "tough" during infusion and had a very brief (fleeting) sensationj of his index symptom of chest pain. MMode 2D Measurements and Calculations LVAd ap4 26.5 cm\\S\\2 LVLd ap4 7.9 cm EDV(MOD-sp4) 74.0 ml EDV(sp4-el) 75.3 ml LVAs ap4 17.1 cm\\S\\2 LVLs ap4 7.0 cm ESV(MOD-sp4) 35.0 ml ESV(sp4-el) 35.2 ml EF(MOD-sp4) 52.6 % EF(sp4-el) 53.2 % LVAd ap2 23.9 cm\\S\\2 LVLd ap2 7.8 cm EDV(MOD-sp2) 59.9 ml EDV(sp2-el) 62.0 ml LVAs ap2 13.8 cm\\S\\2 LVLs ap2 6.8 cm ESV(MOD-sp2) 24.4 ml ESV(sp2-el) 23.7 ml EF(MOD-sp2) 59.3 % EF(sp2-el) 61.7 % LVLd %diff -1.82 % EDV(MOD-bp) 66.1 ml LVLs %diff -3.46 % ESV(MOD-bp) 29.7 ml EF(MOD-bp) 55.1 % SV(MOD-sp4) 38.9 ml SI(MOD-sp4) 19.1 ml/m\\S\\2 SV(MOD-sp2) 35.5 ml SI(MOD-sp2) 17.4 ml/m\\S\\2 SV(MOD-bp) 36.4 ml SI(MOD-bp) 17.8 ml/m\\S\\2 SV(sp4-el) 40.1 ml SI(sp4-el) 19.6 ml/m\\S\\2 SV(sp2-el) 38.3 ml SI(sp2-el) 18.7 ml/m\\S\\2 Doppler Measurements and Calculations MV E max steven 88.8 cm/sec MV A max steven 152.4 cm/sec MV E/A 0.58 MV dec time 0.40 sec Ao V2 max 120.8 cm/sec Ao max PG 5.8 mmHg Ao max PG (full) 1.7 mmHg LV V1 max PG 4.2 mmHg LV V1 max 102.2 cm/sec TR max steven 231.3 cm/sec CHEST ONE VIEW PORTABLE CLINICAL HISTORY: Mid sternal chest pain. COMPARISON STUDY: Chest radiograph June 23, [address] July 27, 2016. FINDINGS: Lung volume are normal. There is no pneumothorax or pleural effusion. Minimal bibasilar opacities favor atelectasis. There is no evidence of pulmonary edema. Cardiomediastinal silhouette is normal. IMPRESSION: 1. No acute cardiopulmonary findings. 2. Mild bibasilar opacities which favor atelectasis. Electronically signed by: Kristian Malone M.D. 08/06/2016 8:52 AM Dictated Date/Time: 08/06/2016 8:50 AM The status of this report is Signed. Draft = Not yet reviewed or approved by Radiologist. Signed = Reviewed and approved by Radiologist. ULTRASOUND RIGHT UPPER QUADRANT ABDOMEN CLINICAL HISTORY: Right upper quadrant abdominal pain. COMPARISON STUDY: Abdominal CT dated 07/27/2016. TECHNIQUE: Real-time, grayscale, and color flow sonography of the right upper quadrant of the abdomen was performed. Images are reviewed in the transverse and longitudinal planes. FINDINGS: Liver: The liver is normal in size and echotexture. There is mild central intrahepatic biliary ductal dilatation. The main portal vein is patent. Gallbladder: The gallbladder is surgically absent. The common bile duct measures up to 0.6 cm in diameter. Pancreas: Not well visualized due to overlying bowel gas. Right kidney: Survey images of the right kidney demonstrate cortical atrophy. There is no hydronephrosis. A 2 cm cyst is noted in the lower pole. Ascites: None. IMPRESSION: No acute sonographic abnormality is identified in the right upper quadrant noting status post cholecystectomy. Electronically signed by: Luther Pardo M.D. 08/06/2016 9:51 PM Dictated Date/Time: 08/06/2016 9:49 PM The status of this report is Signed. Draft = Not yet reviewed or approved by Radiologist. Signed = Reviewed and approved by Radiologist. Consultations: Cardiology GI Medication Reconciliation New Medications: Pantoprazole (Protonix) 40 Mg Tab 40 MG PO BID for 30 Days, #60 TAB Sucralfate (Carafate) 1 Gm Tab 1 GM PO BID for 14 Days, #28 TAB Continued Medications: Atorvastatin (Atorvastatin Calcium) 10 Mg Tab 10 MG PO DAILY Cilostazol (Pletal) 100 Mg Tab 100 MG PO BID Dipyridamole/Aspirin (Aggrenox 25-200 mg) 1 Cap Cap 1 CAP PO BID, CAP Dutasteride (Dutasteride) 0.5 Mg Cap 0.5 MG PO BID Escitalopram Oxalate (Escitalopram Oxalate) 10 Mg Tab 10 MG PO DAILY Furosemide (Furosemide) 20 Mg Tab 20 MG PO BID Gabapentin (Gabapentin) 300 Mg Cap 300 MG PO DAILY Magnesium Chloride (Mag64) Unknown Strength Tab 1 TAB PO DAILY Potassium Chloride Microencaps (Potassium Chloride Er) 20 Meq Tab 20 MEQ PO DAILY Referrals At Discharge Follow up Referrals: Family Practice Referral - Within 1 Week with Dallas Jacobo M.D. Discharge Exam Review of Systems: Constitutional: No chills, No fatigue, No fever, No sweats, No weakness Respiratory: No cough, No hemoptysis, No shortness of breath Cardiovascular: No chest pain, No edema, No palpitations Abdomen: No constipation, No diarrhea, No nausea, No pain, No vomiting Musculoskeletal: No calf pain, No joint pain, No muscle pain, No swelling Genitourinary - Male: No dysuria, No hematuria Neurologic: No numbness/tingling, No weakness Psychiatric: No anxiety, No depression symptoms Hematologic / Lymphatic: No abnormal bleeding/bruising Integumentary: No itch, No new/changing skin lesions, No rash Physical Exam: General Appearance: no apparent distress Eyes: normal inspection, PERRL ENT: hearing grossly normal Neck: supple Respiratory/Chest: lungs clear, no respiratory distress, no accessory muscle use Cardiovascular: regular rate, rhythm Abdomen / GI: normal bowel sounds, non tender, soft Neurologic/Psychiatric: alert, normal mood/affect, oriented x 3 Skin: normal color, warm/dry, no rash Hospital Course 86 y/o M w/Hx PVD, CKD 3, HTN, HPL, and PVD, who presented to the ED because of chest discomfort x1 day. Chest discomfort w/ N/V, secondary to GERD w/ esophagitis: - Admit tele for cardiac monitoring- no acute events - Trend cardiac enzymes- negative - EKG- no acute changes - IV Metoprolol 5 mg PRN HR >120 - IV Morphine 1 mg PRN q4 hrs for pain - RUQ US- unremarkable - Consulted cardiology, appreciate recommendations -- Dobutamine stress ECHO on 08/07 Left ventricular systolic function is normal. The transmitral spectral Doppler flow pattern is normal for age. There is moderate to severe mitral annular calcification. Right ventricular systolic pressure is normal. Diagnostic stress echocardiogram without evidence of inducible ischemia. - Consult GI, appreciate recommendations -- EGD on 08/07 LA Grade D reflux esophagitis. Biopsied. Requested CMV and HSV staining in addition to histology Medium-sized hiatus hernia. Normal stomach. Normal examined duodenum. -- Protonix 40 mg BID and Carafate 1 gm PO BID x2 weeks -- Repeat EGD in 3 months h/o Second degree AV block- noted CKD, stage III- STABLE: - IV NSS @ 80 ml/hr x1 bag - Follow PRP HTN: Hydralazine 10 mg IV q6 hrs PRN Hyperlipidemia: Continue Lipitor 10 mg daily PVD: Continue Aggrenox 1 cap BID, Lipitor 10 mg PO daily, and Pletal 100 mg BID Urinary retention: Continue Dutasteride 0.5 mg BID GI Prophylaxis: Protonix BID, Maalox PRN, IV Zofran PRN, Colace and/or Milk of Mag PRN DVT prophylaxis: Heparin 5000 units SQ q12 hrs, PATRICK and SCDs Code Status: LEVEL I, FULL Dispo: Discharge to home - PT/OT recommendations- OK to return home Total Time Spent: Greater than 30 minutes This includes examination of the patient, discharge planning, medication reconciliation, and communication with other providers. Discharge Instructions Please refer to the electronic Patient Visit Report (Discharge Instructions) for additional information. Follow-Up Please follow-up with your PCP within 5-7 days Please follow-up with GI as instructed by them Please follow-up with Cardiology as instructed by them Please follow-up/keep all of your subspecialty appointments Additional Copies To Dallas Jacobo M.D.
[2016-08-08] MEDS: HEPARIN SOD 5000 UNIT/0.5 ML CARP SQ SCH ×2 (09:25→21:45)
[2016-08-08] MEDS: ATORVASTATIN 10 MG TAB PO SCH (09:26)
[2016-08-08] MEDS: DIPYRIDAMOLE/ASPIRIN CAP PO SCH ×2 (09:26→21:43)
[2016-08-08] MEDS: ESCITALOPRAM OXALATE 10 MG TAB PO SCH (09:26)
[2016-08-08] MEDS: FUROSEMIDE 20 MG TAB PO SCH ×2 (09:27→17:25)
[2016-08-08] MEDS: POTASSIUM CHLORIDE 20 MEQ TABCR PO SCH (09:27)
[2016-08-08] MEDS: CILOSTAZOL 100 MG TAB PO SCH ×2 (09:28→21:43)
[2016-08-08] MEDS: MAGNESIUM CHLORIDE 64MG DELAYED REL TAB PO SCH (09:28)
[2016-08-08] MEDS: GABAPENTIN 300 MG CAP PO SCH (09:28)
[2016-08-08] MEDS: SUCRALFATE 1 GM/10 ML UDC PO SCH ×2 (10:21→21:43)
[2016-08-08] MEDS: PANTOprazole SOD 40 MG TAB PO SCH ×2 (10:21→21:44)
--- NOTE | 2016-08-08 13:07 | Hospitalist Progress Note ---
Hospitalist Progress Note Date of Service Aug 08, 2016. Subjective Pt evaluation today including: conversation w/ patient, physical exam, chart review, lab review, review of studies, review of inpatient medication list Voiding: no voiding problems, no incontinence Patient states he is feeling well. Currently on liquid diet- will advance as tolerated. Patient denies any fever, chills, sweats, lightheadedness, dizziness , vision changes, CP, palpitations, edema, SOB, wheezing, cough, abdominal pain , nausea, vomiting, diarrhea, urinary symptoms, melena, numbness/tingling, weakness, muscle/joint pain, anxiety/depression, active bleeding, or new skin discoloration/changes. Medications Current Inpatient Medications Medications (Trade) Dose Ordered Sig/Hugo Route Start Time Stop Time Status Last Admin Dose Admin Heparin Sodium (Porcine) 5000 unit 5,000 unit Q12 SQ 08/06/16 21:00 09/05/16 20:59 08/08/16 09:25 5,000 UNIT Sodium Chloride (Nss 1000ml) 1,000 ml @ 80 mls/hr [id number] IV 08/06/16 11:55 09/05/16 11:54 08/08/16 02:03 80 MLS/HR Acetaminophen (Tylenol Tab) 650 mg Q4H PRN PO 08/06/16 12:00 09/05/16 11:59 Al Hydrox/Mg Hydrox/Simethicone (Maalox Max Susp) 15 ml Q4H PRN PO 08/06/16 12:00 09/05/16 11:59 Magnesium Hydroxide (Milk Of Magnesia Susp) 30 ml Q12H PRN PO 08/06/16 12:00 09/05/16 11:59 Nitroglycerin (Nitrostat Tab) 0.4 mg UD PRN SL 08/06/16 12:00 09/05/16 11:59 Polyethylene (Miralax Powder Packet) 17 gm DAILY PRN PO 08/06/16 12:00 09/05/16 11:59 Atorvastatin Calcium (Lipitor Tab) 10 mg DAILY PO 08/07/16 09:00 09/06/16 08:59 08/08/16 09:26 10 MG Cilostazol (Pletal Tab) 100 mg BID PO 08/06/16 21:00 09/05/16 20:59 08/08/16 09:28 100 MG Dipyridamole/ Aspirin (Aggrenox 200MG/ 25MG Cap) 1 cap BID PO 08/06/16 21:00 09/05/16 20:59 08/08/16 09:26 1 CAP Escitalopram Oxalate (Lexapro Tab) 10 mg DAILY PO 08/07/16 09:00 09/06/16 08:59 08/08/16 09:26 10 MG Gabapentin (Neurontin Cap) 300 mg DAILY PO 08/07/16 09:00 09/06/16 08:59 08/08/16 09:28 300 MG Potassium Chloride (Klor-Con Tab) 20 meq DAILY PO 08/07/16 09:00 09/06/16 08:59 08/08/16 09:27 20 MEQ Miscellaneous Information (Order Awaiting Action) 1 ea QS N/A 08/06/16 16:00 09/05/16 15:59 Magnesium Chloride (Slow-Mag Tab) 64 mg DAILY PO 08/07/16 09:00 09/06/16 08:59 08/08/16 09:28 64 MG Metoprolol Tartrate (Lopressor Iv) 5 mg Q6 PRN IV 08/06/16 12:00 09/05/16 11:59 Hydralazine HCl (HydrALAZINE INJ) 10 mg Q6H PRN IV. 08/06/16 12:00 09/05/16 11:59 Morphine Sulfate (MoRPHine SULFATE INJ) 1 mg Q4H PRN IV 08/06/16 12:00 08/20/16 11:59 Miscellaneous (Iv Fluids Completed) 1 ea PRN PRN N/A 08/06/16 12:15 08/06/17 12:14 Furosemide (Lasix Tab) 20 mg BID17 PO 08/07/16 09:00 09/06/16 08:59 08/08/16 09:27 20 MG Ondansetron HCl (Zofran Inj) 4 mg Q4H PRN IV 08/06/16 16:00 09/05/16 15:59 Pantoprazole Sodium (Protonix Tab) 40 mg BID PO 08/08/16 09:00 09/07/16 08:59 08/08/16 10:21 40 MG Sucralfate (Carafate Susp) 1 gm BID PO 08/08/16 09:00 09/07/16 08:59 08/08/16 10:21 1 GM Objective Vital Signs Date Time Temp Pulse Resp B/P Pulse Ox O2 Delivery O2 Flow Rate FiO2 08/08/16 12:00 Room Air 08/08/16 11:56 36.7 67 20 162/73 97 Room Air 08/08/16 10:55 36.8 67 18 162/73 97 Room Air 08/08/16 08:00 Room Air 08/08/16 07:14 36.7 73 18 163/72 97 Room Air 08/08/16 04:00 95 Room Air 08/08/16 03:23 36.7 73 19 159/54 95 Room Air 08/08/16 00:01 99 Room Air 08/07/16 23:29 36.5 78 19 160/68 99 Room Air 08/07/16 20:00 Room Air 08/07/16 19:05 36.6 81 18 146/71 98 Room Air 08/07/16 17:00 78 18 135/57 96 Room Air 08/07/16 16:45 75 16 130/62 100 Room Air 08/07/16 16:30 70 18 98/43 100 Mask 10 08/07/16 16:03 36.6 67 18 158/75 98 Room Air 08/07/16 16:00 99 Room Air 08/07/16 15:35 36.3 74 144/77 99 Room Air 08/07/16 15:32 75 99 08/07/16 15:18 36.3 74 20 144/77 99 Room Air Physical Exam General Appearance: no apparent distress Eyes: normal inspection, PERRL ENT: hearing grossly normal Neck: supple Respiratory/Chest: lungs clear, no respiratory distress, no accessory muscle use Cardiovascular: regular rate, rhythm Abdomen: normal bowel sounds, non tender, soft Extremities: no pedal edema, no calf tenderness Neurologic/Psychiatric: alert, normal mood/affect, oriented x 3 Laboratory Results Last 24 Hours Test 08/08/16 05:54 08/08/16 06:23 08/08/16 11:43 Sodium Level 144 mmol/L Potassium Level 3.7 mmol/L Chloride Level 116 mmol/L Carbon Dioxide Level 18 mmol/L Anion Gap 10.0 mmol/L Blood Urea Nitrogen 19 mg/dl Creatinine 1.50 mg/dl Est Creatinine Clear Calc Drug Dose 37.2 ml/min Estimated GFR () 48.5 Estimated GFR (Non- 41.9 BUN/Creatinine Ratio 12.8 Random Glucose 85 mg/dl Calcium Level 8.0 mg/dl Bedside Glucose 94 mg/dl 84 mg/dl Assessment and Plan 86 y/o M w/Hx PVD, CKD 3, HTN, HPL, and PVD, who presented to the ED because of chest discomfort x1 day. Chest discomfort w/ N/V, secondary to GERD w/ esophagitis: - Admit tele for cardiac monitoring- no acute events -- Transfer to med/surg on 08/08 - Trend cardiac enzymes- negative - EKG- no acute changes - IV Metoprolol 5 mg PRN HR >120 - IV Morphine 1 mg PRN q4 hrs for pain - RUQ US- unremarkable - Consulted cardiology, appreciate recommendations -- Dobutamine stress ECHO on 08/07 Left ventricular systolic function is normal. The transmitral spectral Doppler flow pattern is normal for age. There is moderate to severe mitral annular calcification. Right ventricular systolic pressure is normal. Diagnostic stress echocardiogram without evidence of inducible ischemia. - Consult GI, appreciate recommendations -- EGD on 08/07 LA Grade D reflux esophagitis. Biopsied. Requested CMV and HSV staining in addition to histology Medium-sized hiatus hernia. Normal stomach. Normal examined duodenum. -- Protonix 40 mg BID and Carafate 1 gm PO BID x2 weeks -- Repeat EGD in 3 months h/o Second degree AV block- noted CKD, stage III- STABLE: - IV NSS @ 80 ml/hr x1 bag - Follow PRP HTN: Hydralazine 10 mg IV q6 hrs PRN Hyperlipidemia: Continue Lipitor 10 mg daily PVD: Continue Aggrenox 1 cap BID, Lipitor 10 mg PO daily, and Pletal 100 mg BID Urinary retention: Continue Dutasteride 0.5 mg BID GI Prophylaxis: Protonix BID, Maalox PRN, IV Zofran PRN, Colace and/or Milk of Mag PRN DVT prophylaxis: Heparin 5000 units SQ q12 hrs, PATRICK and SCDs Code Status: LEVEL I, FULL Dispo: Discharge to home on 08/09 - PT/OT recommendations- OK to return home
[2016-08-09 00:36] VITALS: BP 156/78; PULSE 85; TEMP 36.9; O2SAT 97
--- NOTE | 2016-08-09 01:20 | GASTROINTESTINAL CONSULTATION ---
DATE OF CONSULTATION: 08/08/2016 SUBJECTIVE: The patient underwent upper endoscopy yesterday with extensive ulcerative esophagitis. The patient overall is feeling well, had some slight discomfort when eating orange jello. There is no dysphagia. He had discussed the results of the findings and awaits the biopsies. CURRENT MEDICATIONS: Include; pantoprazole 40 mg twice daily and Carafate 1 gm twice daily in addition to his other medications for cholesterol, depressive symptoms and neuralgia. OBJECTIVE: VITAL SIGNS: Today show; afebrile at 36.6, blood pressure 151/75, heart rate 76, 98% on room air and respirations are 19. GENERAL: Unremarkable. ABDOMEN: Soft, without rebound or guarding. EXTREMITIES: Without edema. LUNGS: Overall clear to auscultation. IMPRESSION: The patient with extensive ulcerative esophagitis. Biopsies are pending at the time of this visit. I have recommended Protonix 40 mg twice daily for 4 months and recommend an upper endoscopy in 3 months. This will be arranged as an outpatient. The Carafate should be kept going for approximately 2 to 4 weeks as a slurry. I did question him about the use of foods that may have an acidic component such as tomato sauces, tomato juice and citrus fruits such as orange and lemon; this may be the reason for the orange based jello causing some discomfort. The patient will be transferred to a floor bed today with anticipation of discharge to home tomorrow. All questions were answered. We will sign off at this time. Please contact if you have any questions. Thank you for allowing me to participate in this patient's care.
[2016-08-09] MEDS: SODIUM CHLORIDE 0.9% 1000ML 1,000 ML IV SCH (01:41)
[2016-08-09] MEDS ORDERED: PANT40TA PO (07:21)
[2016-08-09 07:49] VITALS: BP 155/81; PULSE 84; TEMP 36.7; O2SAT 97
[2016-08-09 08:00] VITALS: O2SAT 93
[2016-08-09] MEDS: AVODART - ORDER AWAITING ACTION SCH ×2 (08:00)
[2016-08-09 08:05] LABS: BUN/CREATININE RATIO 12.2 (10-20); CALCIUM 8.1 mg/dl (8.5-10.1); CREATININE 1.5 mg/dl (0.60-1.40); POTASSIUM 3.3 mmol/L (3.5-5.1)
[2016-08-09] MEDS ORDERED: POTASSIUM CHLORIDE 20 MEQ TABCR PO ONE (09:00)
[2016-08-09] MEDS: MAGNESIUM CHLORIDE 64MG DELAYED REL TAB PO SCH (09:11)
[2016-08-09] MEDS: POTASSIUM CHLORIDE 20 MEQ TABCR PO SCH (09:11)
[2016-08-09] MEDS: ESCITALOPRAM OXALATE 10 MG TAB PO SCH (09:11)
[2016-08-09] MEDS: DIPYRIDAMOLE/ASPIRIN CAP PO SCH (09:11)
[2016-08-09] MEDS: CILOSTAZOL 100 MG TAB PO SCH (09:11)
[2016-08-09] MEDS: ATORVASTATIN 10 MG TAB PO SCH (09:11)
[2016-08-09] MEDS: SUCRALFATE 1 GM/10 ML UDC PO SCH (09:12)
[2016-08-09] MEDS: PANTOprazole SOD 40 MG TAB PO SCH (09:12)
[2016-08-09] MEDS: FUROSEMIDE 20 MG TAB PO SCH (09:12)
[2016-08-09] MEDS: GABAPENTIN 300 MG CAP PO SCH (09:12)
[2016-08-09] MEDS: HEPARIN SOD 5000 UNIT/0.5 ML CARP SQ SCH (09:21)
[2016-08-09 10:48] VITALS: BP 155/81; PULSE 84; TEMP 36.7; O2SAT 93
[2016-08-09] MEDS ORDERED: POTASSIUM CHLORIDE 10 MEQ TABCR PO ONE (11:20)
[2016-08-09 12:00] VITALS: O2SAT 93
[2016-10-13] MEDS ORDERED: LPR25 PO (07:55)
[2016-11-08] MEDS ORDERED: METO25TA56 PO (15:36)
[2017-02-14] MEDS ORDERED: ALLO100T PO (05:53)
[2017-02-14] MEDS ORDERED: POTA20TA13 PO (08:17)
[2017-02-14] MEDS ORDERED: DUTA1CAP3 PO (08:17)
[2017-02-14] MEDS ORDERED: GABA1CAP4 PO (08:19)
[2017-02-14] MEDS ORDERED: LXP10 PO (08:19)
[2017-02-14] MEDS ORDERED: LPT10 PO (08:19)
[2017-02-14] MEDS ORDERED: LSX20 PO (08:19)
[2017-02-14] MEDS ORDERED: MAGN64TA4 PO (08:19)
[2017-02-14] MEDS ORDERED: CILO100T PO (15:29)
[2017-02-14] MEDS ORDERED: TRMO115 TOP (15:33)
[2017-02-14] MEDS ORDERED: PANT40TA PO (15:33)
[2017-02-14] MEDS ORDERED: AGG PO (18:54)
[2017-02-14] MEDS ORDERED: ERGO500037 PO (18:54)
== END 2016-08-09 14:00 | disposition home or self-care (01) ==
LOC: ENRESERVTM → ENRESERVDT → EDBD 07:57 → C.EDB 07:57 → C.2T 12:03 → C.MS4W 08-08 18:37
PROVIDERS: ADMIT Hospitalist; ATTEND Hospitalist
DX: K22.10 Ulcer of esophagus without bleeding (principal); K21.0 Gastro-esophageal reflux disease with esophagitis; I73.9 Peripheral vascular disease, unspecified; I12.9 Hypertensive chronic kidney disease with stage 1 through stage 4 chronic kidney disease, or unspecified chronic kidney disease; F32.9 Major depressive disorder, single episode, unspecified; N18.3 Chronic kidney disease, stage 3 (moderate); I25.10 Atherosclerotic heart disease of native coronary artery without angina pectoris; E78.5 Hyperlipidemia, unspecified; R33.9 Retention of urine, unspecified; E11.9 Type 2 diabetes mellitus without complications; N40.0 Benign prostatic hyperplasia without lower urinary tract symptoms; I44.1 Atrioventricular block, second degree; K44.9 Diaphragmatic hernia without obstruction or gangrene; H40.9 Unspecified glaucoma; Z85.038 Personal history of other malignant neoplasm of large intestine; Z87.891 Personal history of nicotine dependence

== ENCOUNTER 2016-08-19 15:40 | Emergency (ER) | payer OTHER ==
[~2016-08-19] VITALS: Ht 172.7 cm; Wt 82.7 kg
[~2016-08-19 15:40] MED LIST changes: -ALL300 PO; -AMLO2.5T PO; -ATOR10TA82 PO; -DUTA0.5C PO; -ERGO500037 PO; -ESCI10TA17 PO; -FURO-85 PO; -GABA-113 PO; +PANT40TA PO; -POTA20TA11 PO; -PRT40 PO; +SUCR1TAB29 PO
[2016-08-19 15:51] VITALS: TEMP 36.6; Ht 172.7 cm; Wt 82.7 kg
[2016-08-19] MEDS ORDERED: SODIUM CHLORIDE 0.9% 1000ML 500 ML IV STA (16:28)
[2016-08-19] MEDS ORDERED: LIDOCAINE/EPINEPH/TETRACAINE 1 EA SYR EXT STA (16:28)
[2016-08-19] MEDS ORDERED: LIDO/EPINEPHRINE/SOD BICARB 20 ML VIAL INFIL ONE (16:30)
--- NOTE | 2016-08-19 16:48 | EMERGENCY ROOM VISIT NOTE ---
History Report prepared by Pavan: Maddie Chatterjee Under the Supervision of: Dr. Omar Zarate M.D. First contact with patient: 16:19 Chief Complaint: HEAD INJURY (MINOR) Stated Complaint: FALL, HEMATOMA TO BACK OF HEAD History of Present Illness The patient is an 86 year old male who presents to the Emergency Room with complaints of an episode of a fall occurring [employer]. The patient was standing up at a counter in [employer] watching a baseball game when he suddenly became lightheaded and fell backwards. He hit the back of his head on the ground. He has a small laceration on the back of his head. He rates his pain as a 7/10 in severity. He denies any other injury. The patient denies LOC, headache, neck pain, nausea, vomiting, chest pain, shortness of breath, and urinary symptoms. His tetanus is up to date. He has been eating and drinking normally. He does not take any blood thinners. The patient was brought to the ED by ambulance. He was recently in the hospital for chest pain and diagnosed with GERD. He has been feeling well since he was discharged. Source of History: patient Onset: DR[employer] Position: head Symptom Intensity: 7/10 Timing: other (episode) Modifying Factors (Worsening): other (standing) Associated Symptoms: No LOC, No SOB, No chest pain, No headache, No nausea, No neck pain, No urinary symptoms, No vomiting Note: Pt notes lightheadedness. Review of Systems See HPI for pertinent positives & negatives. A total of 10 systems reviewed and were otherwise negative. Past Medical & Surgical Medical Problems: (1) Benign essential hypertension (2) Carcinoma of colon (3) chest pain and AV block (4) chest pain and AV block (5) Diabetes mellitus type 2 (6) Gastroesophageal reflux disease (7) GERD (gastroesophageal reflux disease) (8) Glaucoma (9) Gout (10) Hyperlipidemia (11) Lower gastrointestinal hemorrhage (12) Peripheral vascular disease Family History Non-pertinent due to advanced age. Social History Smoking Status: Former Smoker Alcohol Use: none Drug Use: none Marital Status: Housing Status: lives with family Occupation Status: retired Current/Historical Medications Scheduled Atorvastatin (Atorvastatin Calcium), 10 MG PO DAILY Cilostazol (Pletal), 100 MG PO BID Dipyridamole/Aspirin (Aggrenox 25-200 mg), 1 CAP PO BID Dutasteride (Dutasteride), 0.5 MG PO BID Ergocalciferol (Vitamin D), 50,000 UNIT PO MONTHLY Escitalopram Oxalate (Escitalopram Oxalate), 10 MG PO DAILY Furosemide (Furosemide), 20 MG PO 2XWK Gabapentin (Gabapentin), 300 MG PO DAILY Magnesium Chloride (Mag64), 1 TAB PO DAILY Pantoprazole (Protonix), 40 MG PO BID Potassium Chloride Microencaps (Potassium Chloride Er), 20 MEQ PO DAILY Sucralfate (Carafate), 1 GM PO BID Allergies Coded Allergies: Amoxicillin (Verified Allergy, Severe, HIVES; ANGIOEDEMA, 08/19/16) Lisinopril (Verified Allergy, Mild, HIVES, 08/19/16) Penicillins (Verified Allergy, Mild, HIVES, 08/19/16) Physical Exam Vital Signs Date Time Temp Pulse Resp B/P Pulse Ox O2 Delivery O2 Flow Rate FiO2 08/19/16 18:49 73 18 148/75 96 08/19/16 17:36 87 20 194/86 99 Room Air 08/19/16 17:31 79 20 185/88 99 Room Air 75 170/84 87 194/86 08/19/16 15:51 36.6 81 18 147/90 97 Room Air 08/19/16 15:51 20 97 Physical Exam GENERAL: Patient is in no acute distress. HEENT: Hematoma to the posterior scalp with an abrasion and about a 3cm scalp laceration. Mucous membranes are moist, no obvious facial trauma. NECK: No stridor, no adenopathy, no meningismus, trachea is midline. Nontender C -spine. LUNGS: Clear to auscultation bilaterally, no wheeze, no rhonchi, breath sounds equal. HEART: Slightly irregular rhythm, normal rate, no murmurs. ABDOMEN: Soft, nontender, bowel sounds positive, no hernias, no peritonitis. EXTREMITIES: Mild bilateral pedal edema, full range of motion of all the joints without pain or difficulty, no signs for acute trauma. NEUROLOGIC: Oriented x 3, no acute motor or sensory deficits, no focal weakness. No pronator drift or cerebellar dysfunction. SKIN: No rash, no jaundice, no diaphoresis. Medical Decision & Procedures ER Provider Diagnostic Interpretation: Radiology results as stated below per my review and radiologist interpretation: CT HEAD WITHOUT CONTRAST (CT) CLINICAL HISTORY: Posterior head injury. Altered mental status. Weakness. COMPARISON STUDY: 10/02/2014 TECHNIQUE: Axial CT of the brain is performed from the vertex to the skull base. IV contrast was not administered for this examination. CT DOSE: 537.48 mGy.cm FINDINGS: No intra or extra-axial mass lesions are visualized. There is no CT evidence of acute cortical infarction. There is no evidence of midline shift. There is no acute hemorrhage. No calvarial fractures are visualized. There are patchy white matter hypodensities likely on a small vessel basis. 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 There is no evidence of pathologic ventricular dilatation. There is opacification of several left-sided ethmoid air cells. There is a chronic right mastoid effusion. There is posterior parietal scalp edema. IMPRESSION: Posterior parietal scalp edema. No acute intracranial findings. Electronically signed by: Jorge Quintana M.D. 08/19/2016 5:21 PM Dictated Date/Time: 08/19/2016 5:19 PM Laboratory Results 08/19/16 16:42 Red Blood Count 4.06, Mean Corpuscular Volume 101.7, Mean Corpuscular Hemoglobin 34.0, Mean Corpuscular Hemoglobin Concent 33.4, Mean Platelet Volume 9.6, Neutrophils (%) (Auto) 81.5, Lymphocytes (%) (Auto) 7.2, Monocytes (%) ( Auto) 8.6, Eosinophils (%) (Auto) 1.9, Basophils (%) (Auto) 0.5, Neutrophils # ( Auto) 5.10, Lymphocytes # (Auto) 0.45, Monocytes # (Auto) 0.54, Eosinophils # ( Auto) 0.12, Basophils # (Auto) 0.03 08/19/16 16:42 Test 08/19/16 15:50 08/19/16 16:42 08/19/16 17:35 Bedside Glucose 143 mg/dl (70-99) White Blood Count 6.26 K/uL (4.8-10.8) Red Blood Count 4.06 M/uL (4.7-6.1) Hemoglobin 13.8 g/dL (14.0-18.0) Hematocrit 41.3 % (42-52) Mean Corpuscular Volume 101.7 fL (80-100) Mean Corpuscular Hemoglobin 34.0 pg (25-34) Mean Corpuscular Hemoglobin Concent 33.4 g/dl (32-36) Platelet Count 146 K/uL (130-400) Mean Platelet Volume 9.6 fL (7.4-10.4) Neutrophils (%) (Auto) 81.5 % Lymphocytes (%) (Auto) 7.2 % Monocytes (%) (Auto) 8.6 % Eosinophils (%) (Auto) 1.9 % Basophils (%) (Auto) 0.5 % Neutrophils # (Auto) 5.10 K/uL (1.4-6.5) Lymphocytes # (Auto) 0.45 K/uL (1.2-3.4) Monocytes # (Auto) 0.54 K/uL (0.11-0.59) Eosinophils # (Auto) 0.12 K/uL (0-0.5) Basophils # (Auto) 0.03 K/uL (0-0.2) RDW Standard Deviation 48.3 fL (36.4-46.3) RDW Coefficient of Variation 12.9 % (11.5-14.5) Immature Granulocyte % (Auto) 0.3 % Immature Granulocyte # (Auto) 0.02 K/uL (0.00-0.02) Anion Gap 10.0 mmol/L (3-11) Est Creatinine Clear Calc Drug Dose 29.8 ml/min Estimated GFR () 36.4 Estimated GFR (Non- 31.4 BUN/Creatinine Ratio 8.6 (10-20) Calcium Level 9.2 mg/dl (8.5-10.1) Total Bilirubin 0.3 mg/dl (0.2-1) Aspartate Amino Transf (AST/SGOT) 17 U/L (15-37) Alanine Aminotransferase (ALT/SGPT) 24 U/L (12-78) Alkaline Phosphatase 127 U/L (45-117) Total Protein 7.6 gm/dl (6.4-8.2) Albumin 3.8 gm/dl (3.4-5.0) Globulin 3.8 gm/dl (2.5-4.0) Albumin/Globulin Ratio 1.0 (0.9-2) Urine Color YELLOW Urine Appearance CLEAR (CLEAR) Urine pH 5.0 (4.5-7.5) Urine Specific [place] 1.013 (1.000-1.030) Urine Protein TRACE (NEG) Urine Glucose (UA) NEG (NEG) Urine Ketones NEG (NEG) Urine Occult Blood NEG (NEG) Urine Nitrite NEG (NEG) Urine Bilirubin NEG (NEG) Urine Urobilinogen NEG (NEG) Urine Leukocyte Esterase NEG (NEG) Urine WBC (Auto) 1-5 /hpf (0-5) Urine RBC (Auto) 0-4 /hpf (0-4) Urine Hyaline Casts (Auto) 5-10 /lpf (0-5) Urine Epithelial Cells (Auto) 10-20 /lpf (0-5) Urine Bacteria (Auto) NEG (NEG) Laboratory results reviewed by me. Medications Administered Medications (Trade) Dose Ordered Sig/Hugo Route Start Time Stop Time Status Last Admin Dose Admin Sodium Chloride (Nss 1000ml) 500 ml @ 999 mls/hr Q31M STAT IV 08/19/16 16:28 08/19/16 16:58 DC 08/19/16 16:28 999 MLS/HR Tetracaine/ Epinephrine/ Lidocaine (L.e.t. Gel 4%/ 1:100/0.5%) 1 ea NOW STAT EXT 08/19/16 16:28 08/19/16 16:31 DC 08/19/16 16:51 1 EA ECG Indication: other Rate (beats per minute): 64 Rhythm: normal sinus Findings: no acute ischemic change, no ectopy ED Course 161: The patient was evaluated in room A11B. A complete history and physical exam was performed. 1628: L.e.t. Gel 4% EXT, NSS 500 ml @ 999 mls/hr IV 1630: Lidocaine/Epinephrine Inj 1801: I reassessed the patient at this time. He is feeling better and resting comfortably. I discussed the results and treatment plan with the patient. I answered all pertaining questions that he had. He expressed understanding and verbalized agreement. The patient will be discharged home after a laceration repair. 1818: Orthostatic vitals are negative. Medical Decision Differential diagnoses includes intracranial bleeding, skull fracture, dehydration, anemia, electrolyte imbalance, dysrhythmia, cervical spine trauma. There is no leukocytosis or concerning anemia. Renal panel testing shows renal insufficiency which he does have a past history of, no significant electrolyte abnormality requiring correction. There was no hepatitis. Urinalysis does not show infection. Brain CT shows no acute bleed or mass effect. EKG shows a sinus rhythm, no acute ischemia. Orthostatic vital signs were negative. On exam, there was no evidence for injury to the neck, back, chest, abdomen or extremities. The patient was given IV saline, his scalp laceration was repaired by my PA, please see her note. The patient looks well, he has no complaints at present. He does have a history of dizziness like today. He has no concerning findings on workup. He would like to be discharged home and I think this is appropriate. Kent out in about 10 days. Impression Primary Impression: Head trauma Additional Impressions: Scalp laceration Fall Scribe Attestation The scribe's documentation has been prepared under my direction and personally reviewed by me in its entirety. I confirm that the note above accurately reflects all work, treatment, procedures, and medical decision making performed by me. Departure Information Dispostion Home / Self-Care Referrals Dallas Jacobo M.D. (PCP) Forms HOME CARE DOCUMENTATION FORM, IMPORTANT VISIT INFORMATION Patient Instructions My [facility] Additional Instructions castillo out in 10 days watch for infection--redness, drainage, fever stay well hydrated see jackelyn lowe this week for a recheck return if worsening testing today was all ok Problem Qualifiers Primary Impression: Head trauma Encounter type: initial encounter Qualified Codes: S09.90XA - Unspecified injury of head, initial encounter Additional Impressions: Scalp laceration Encounter type: initial encounter Qualified Codes: S01.01XA - Laceration without foreign body of scalp, initial encounter Fall Encounter type: initial encounter Qualified Codes: W19.XXXA - Unspecified fall, initial encounter
[2016-08-19 16:56] LABS: BASO % 0.5 %; BASO ABS # 0.03 K/uL (0-0.2); COMPLETE YES; EOS % 1.9 %; HEMATOCRIT 41.3 % (42-52); IG% 0.3 %; LYMPH % 7.2 %; LYMPH ABS # 0.45 K/uL (1.2-3.4); MEAN CELL VOLUME 101.7 fL (80-100); MEAN CORPUSCULAR HGB CONC 33.4 g/dl (32-36); MEAN PLATELET VOLUME 9.6 fL (7.4-10.4); MONO % 8.6 %; NEUT % 81.5 %; PLATELET COUNT 146 K/uL (130-400); RED BLOOD COUNT 4.06 M/uL (4.7-6.1); WHITE BLOOD COUNT 6.26 K/uL (4.8-10.8)
[2016-08-19 17:15] LABS: BUN/CREATININE RATIO 8.6 (10-20); CALCIUM 9.2 mg/dl (8.5-10.1); CREATININE 1.9 mg/dl (0.60-1.40)
--- NOTE | 2016-08-19 17:22 | DIAGNOSTIC IMAGING REPORT ---
CT HEAD WITHOUT CONTRAST (CT) CLINICAL HISTORY: Posterior head injury. Altered mental status. Weakness. COMPARISON STUDY: 10/02/2014 TECHNIQUE: Axial CT of the brain is performed from the vertex to the skull base. IV contrast was not administered for this examination. CT DOSE: 537.48 mGy.cm FINDINGS: No intra or extra-axial mass lesions are visualized. There is no CT evidence of acute cortical infarction. There is no evidence of midline shift. There is no acute hemorrhage. No calvarial fractures are visualized. There are patchy white matter hypodensities likely on a small vessel basis. 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 There is no evidence of pathologic ventricular dilatation. There is opacification of several left-sided ethmoid air cells. There is a chronic right mastoid effusion. There is posterior parietal scalp edema. IMPRESSION: Posterior parietal scalp edema. No acute intracranial findings. Electronically signed by: Jorge Quintana M.D. 08/19/2016 5:21 PM Dictated Date/Time: 08/19/2016 5:19 PM
[2016-08-19] MEDS ORDERED: VTMD PO (17:38)
[2016-08-19 18:02] LABS: URINE APPEARANCE CLEAR (CLEAR); URINE BILIRUBIN NEG (NEG); URINE COLOR YELLOW; URINE NITRITE NEG (NEG); URINE SPECIFIC GRAVITY 1.013 (1.000-1.030); UROBILINOGEN NEG (NEG); ZZUR CULT IF INDIC CLEAN CATCH NO
[2016-08-19 18:07] LABS: MANUAL MICROSCOPIC REQUIRED? NO; REVIEW REQ? NO
--- NOTE | 2016-08-19 18:27 | EMERGENCY ROOM VISIT NOTE ---
ED Visit Note EMERGENCY DEPARTMENT PROCEDURE NOTE: I was asked by Dr. Denise to evaluate and repair the occipital scalp wound of this 86-year-old white male patient. Please refer to their dictation for the complete history, physical exam, and ED course. EMERGENCY DEPARTMENT COURSE: The wound was prepped with Betadine and draped with sterile towels. The wound was anesthetized with 1% buffered lidocaine with epinephrine. The 3 was explored, there is no evidence for foreign body. Cm laceration was irrigated copiously using normal saline solution and direct pressure irrigation. The wound was repaired using 4 skin castillo. Patient tolerated the procedure well.
[2016-08-19 18:49] VITALS: BP 148/75; PULSE 73; O2SAT 96
[2016-10-13] MEDS ORDERED: LPR25 PO (07:55)
[2016-11-08] MEDS ORDERED: METO25TA56 PO (15:36)
[2017-02-14] MEDS ORDERED: ALLO100T PO (05:53)
[2017-02-14] MEDS ORDERED: POTA20TA13 PO (08:17)
[2017-02-14] MEDS ORDERED: DUTA1CAP3 PO (08:17)
[2017-02-14] MEDS ORDERED: LPT10 PO (08:19)
[2017-02-14] MEDS ORDERED: MAGN64TA4 PO (08:19)
[2017-02-14] MEDS ORDERED: GABA1CAP4 PO (08:19)
[2017-02-14] MEDS ORDERED: LXP10 PO (08:19)
[2017-02-14] MEDS ORDERED: LSX20 PO (08:19)
[2017-02-14] MEDS ORDERED: CILO100T PO (15:29)
[2017-02-14] MEDS ORDERED: PANT40TA PO (15:33)
[2017-02-14] MEDS ORDERED: TRMO115 TOP (15:33)
[2017-02-14] MEDS ORDERED: AGG PO (18:54)
[2017-02-14] MEDS ORDERED: ERGO500037 PO (18:54)
== END 2016-08-19 18:49 | disposition home or self-care (01) ==
LOC: EDBD 15:40 → C.EDA 15:43
DX: S09.90XA Unspecified injury of head, initial encounter (principal); S01.01XA Laceration without foreign body of scalp, initial encounter; W19.XXXA Unspecified fall, initial encounter; I10 Essential (primary) hypertension; E78.5 Hyperlipidemia, unspecified; E11.9 Type 2 diabetes mellitus without complications; I73.9 Peripheral vascular disease, unspecified; K21.9 Gastro-esophageal reflux disease without esophagitis; M10.9 Gout, unspecified; Z85.038 Personal history of other malignant neoplasm of large intestine; Z87.891 Personal history of nicotine dependence; Z79.899 Other long term (current) drug therapy; Z88.0 Allergy status to penicillin; Z88.1 Allergy status to other antibiotic agents; Z88.8 Allergy status to other drugs, medicaments and biological substances

== ENCOUNTER → 2016-09-01 | Outpatient (CLI) | payer OTHER ==
[~2016-09-01] MED LIST changes: +ALLO100T PO; +DUTA1CAP3 PO; +ERGO500037 PO; +GABA1CAP4 PO; +LPR25 PO; +LPT10 PO; +LSX20 PO; +LXP10 PO; +MAGN64TA4 PO; +METO25TA56 PO; +POTA20TA13 PO; -SUCR1TAB29 PO; +TRMO115 TOP; +VTMD PO
== END | disposition home or self-care (01) ==
LOC: C.LAB 09:47
PROVIDERS: ATTEND Surgery
DX: C34.91 Malignant neoplasm of unspecified part of right bronchus or lung (principal)

== ENCOUNTER → 2016-09-05 | Outpatient (CLI) | payer OTHER ==
[2016-09-05 12:21] LABS: HEMATOCRIT 36.9 % (42-52); MEAN CELL VOLUME 98.1 fL (80-100); MEAN CORPUSCULAR HGB CONC 33.6 g/dl (32-36); MEAN PLATELET VOLUME 9.7 fL (7.4-10.4); PLATELET COUNT 152 K/uL (130-400); RED BLOOD COUNT 3.76 M/uL (4.7-6.1); WHITE BLOOD COUNT 6.75 K/uL (4.8-10.8)
[2016-09-05 12:52] LABS: BLOOD UREA NITROGEN 25 mg/dl (7-18); BUN/CREATININE RATIO 13.2 (10-20); CARBON DIOXIDE 17 mmol/L (21-32); CHLORIDE 113 mmol/L (98-107); GLUCOSE 121 mg/dl (70-99); PHOSPHORUS 3.8 mg/dl (2.5-4.9); POTASSIUM 3.6 mmol/L (3.5-5.1); SODIUM 143 mmol/L (136-145)
[2016-09-05 12:56] LABS: CHOLESTEROL/HDL RATIO 3.4; URIC ACID 8.7 mg/dl (2.6-7.2)
[2016-09-05 12:57] LABS: CALCIUM 8.9 mg/dl (8.5-10.1)
[2016-09-05 13:08] LABS: ESTIMATED AVERAGE GLUCOSE 128 mg/dl; HA1C FLAG Normal (Normal)
== END | disposition home or self-care (01) ==
LOC: C.LABPVFM 10:15
PROVIDERS: ATTEND Internal Medicine Nephrology
DX: I12.9 Hypertensive chronic kidney disease with stage 1 through stage 4 chronic kidney disease, or unspecified chronic kidney disease (principal); N18.3 Chronic kidney disease, stage 3 (moderate); D64.9 Anemia, unspecified; E55.9 Vitamin D deficiency, unspecified; R73.9 Hyperglycemia, unspecified; M1A.9XX0 Chronic gout, unspecified, without tophus (tophi); E78.5 Hyperlipidemia, unspecified

== ENCOUNTER → 2016-09-06 | Outpatient (CLI) | payer OTHER ==
[2016-09-06 18:15] LABS: URINE APPEARANCE CLEAR (CLEAR); URINE BILIRUBIN NEG (NEG); URINE COLOR YELLOW; URINE NITRITE NEG (NEG); URINE PH 5.5 (4.5-7.5); URINE PROTIEN/CREAT RATIO 0.4 (0-0.2); URINE SPECIFIC GRAVITY 1.015 (1.000-1.030); UROBILINOGEN NEG (NEG)
[2016-09-06 18:20] LABS: MANUAL MICROSCOPIC REQUIRED? NO; REVIEW REQ? NO
== END | disposition home or self-care (01) ==
LOC: C.LABPVFM 14:40
PROVIDERS: ATTEND Internal Medicine Nephrology
DX: I10 Essential (primary) hypertension (principal); N18.3 Chronic kidney disease, stage 3 (moderate); D64.9 Anemia, unspecified; E55.9 Vitamin D deficiency, unspecified

== ENCOUNTER → 2016-09-17 | Outpatient (CLI) | payer OTHER ==
--- NOTE | 2016-09-17 11:08 | DIAGNOSTIC IMAGING REPORT ---
PET/CT SKULL-THIGH CLINICAL HISTORY: PULMONARY NODULE COMPARISON STUDY: 08/04/2012, chest CT scan dated 07/27/2016 FINDINGS: The patient was injected with 14.6 mCi of F 18 labeled FDG. Following the standard induction phase, PET/CT scanning is performed from the skull base the upper thigh region. Activity within the neck is felt to be physiologic. On the fused images, there are foci of increased activity within the nasopharyngeal midline and to the left of midline. This likely represents normal nasopharyngeal activity with misregistration artifact. Within the chest, there is intense focus of increased FDG activity fusing to the partially solid and groundglass 2 cm right upper lobe pulmonary nodule. This nodule is an SUV maximum of 14.3. There is no pathologic sonja activity. The stable 5 mm right lower lobe pulmonary nodule reported on the recent CT scan is not FDG avid. There is pulmonary emphysema. Within the abdomen and pelvis, there is physiologic urinary tract and bowel activity. There is no pathologic sonja activity. The prostate is enlarged. There are postsurgical changes are prior femorofemoral bypass. 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 There is a fat-containing left para midline ventral hernia. There is no pathologic skeletal activity. IMPRESSION: 1. 2 cm partially solid and groundglass right upper lobe pulmonary nodule which is intensely FDG avid with SUV maximum of 14.3. This lesion should be presumed neoplastic unless proven otherwise 2. No evidence of pathologic sonja activity Electronically signed by: Jorge Quintana M.D. 09/17/2016 11:07 AM Dictated Date/Time: 09/17/2016 10:55 AM
== END | disposition home or self-care (01) ==
LOC: C.PET 08:02
PROVIDERS: ATTEND Surgery
DX: R91.1 Solitary pulmonary nodule (principal)

== ENCOUNTER 2016-10-10 05:06 | Inpatient (IN) | payer OTHER ==
[2016-09-27 15:35] VITALS: BMI 29.0
[~2016-10-10] VITALS: Ht 172.7 cm; Wt 82.8 kg
[~2016-10-10 05:06] MED LIST changes: -ALLO100T PO; -ERGO500037 PO; -LPR25 PO; -METO25TA56 PO
[2016-10-10 05:45] VITALS: BP 169/77; PULSE 87; TEMP 36.3; O2SAT 98; Ht 172.7 cm; Wt 82.8 kg
[2016-10-10] MEDS ORDERED: ALLO100T PO (05:53)
[2016-10-10] MEDS ORDERED: LACTATED RINGER'S 1000ML 1,000 ML IV SCH (06:00)
[2016-10-10] MEDS ORDERED: ONDANSETRON INJ 2 MG/ML 2 ML VIAL ONE (06:51)
[2016-10-10] MEDS ORDERED: PROPOFOL IV EMULSION 10 MG/ML 20 ML VIAL IV ONE (06:51)
[2016-10-10] MEDS ORDERED: LIDOCAINE HCL 2% 2 ML VIAL (20MG/ML) ONE (06:51)
[2016-10-10] MEDS ORDERED: GLYCOPYRROLATE INJ 0.2 MG/ML VIAL ONE (06:51)
[2016-10-10] MEDS ORDERED: DEXAMETHASONE SOD INJ 4 MG/ML VIAL ONE (06:51)
[2016-10-10] MEDS ORDERED: NEOSTIGMINE METHYLSULFATE 5 MG/5 ML SYR ONE (06:51)
[2016-10-10] MEDS ORDERED: ROCURONIUM BROMIDE 10 MG/ML 5 ML VIAL ONE (06:51)
[2016-10-10] MEDS ORDERED: FENTANYL CITRATE INJ 50 MCG/1 ML 2 ML VIAL ONE ×2 (06:52→08:03)
[2016-10-10] MEDS ORDERED: MIDAZOLAM HCL 1 MG/ML 2ML VIAL ONE (06:52)
[2016-10-10] MEDS ORDERED: SODIUM CHLORIDE 0.9% PF 50 ML VIAL ONE (06:55)
[2016-10-10] MEDS ORDERED: BUPIVACAINE LIPOSOME 1/3% 266 MG/20 ML VIAL INFIL ONE (06:55)
--- NOTE | 2016-10-10 06:59 | History & Physical Bridge Note ---
H&P Re-Evaluation Bridge Note: I have examined the patient, reviewed the History & Physical and in the interval since the performance of the History & Physical I have noted the following changes of clinical significance: No changes noted
[2016-10-10] MEDS ORDERED: CEFAZOLIN SOD 1 GM VIAL ONE (07:37)
[2016-10-10] MEDS ORDERED: ATROPINE SULFATE 0.1 MG/ML 5ML SYR IV PRN (08:15)
[2016-10-10] MEDS ORDERED: PROMETHAZINE HCL INJ 6.25 MG in SODIUM CHLORIDE 0.9% 50ML 50 ML IV PRN (08:15)
[2016-10-10] MEDS ORDERED: FENTANYL CITRATE INJ 50 MCG/1 ML 2 ML VIAL IV PRN (08:15)
[2016-10-10] MEDS ORDERED: EpHEDrine SULFATE INJ 50 MG/ML AMP IV PRN (08:15)
[2016-10-10] MEDS ORDERED: ONDANSETRON INJ 2 MG/ML 2 ML VIAL IV PRN ×2 (08:15→11:30)
[2016-10-10] MEDS ORDERED: AMIODARONE HCL INJ 50 MG/ML 3 ML VIAL ONE (09:08)
[2016-10-10] MEDS ORDERED: AMIODARONE IV BOLUS / DRIP IV STA ×2 (09:11→13:21)
[2016-10-10] MEDS ORDERED: PHENYLEPHRINE 100MCG/ML 5ML SYR ONE (09:13)
[2016-10-10] MEDS ORDERED: EpHEDrine SULFATE 50MG/5ML SYR ONE (09:13)
[2016-10-10] MEDS ORDERED: AMIODARONE / D5W 200 ML IV SCH ×3 (09:30→17:30)
[2016-10-10] MEDS ORDERED: SURGICEL ABSORB HEMOSTAT 2IN X 14IN TOP ONE (10:31)
[2016-10-10] MEDS ORDERED: TRIAMCINOLONE ACET 0.1% OINT 15 GM TUBE TOP PRN (11:30)
[2016-10-10] MEDS ORDERED: MoRPHine SULFATE 2 MG/ML CARP IV PRN (11:30)
[2016-10-10] MEDS ORDERED: OXYCODONE/ACETAMINOPHEN 5-325 TAB PO PRN (11:30)
--- NOTE | 2016-10-10 11:54 | [facility] Operative Report ---
Operative Report Operative Date Oct 10, 2016. Pre-Operative Diagnosis Hypermetabolic enlarging mass medial right upper lobe Post-Operative Diagnosis Adenocarcinoma right upper lobe Procedure(s) Performed Right thoracoscopy with wedge resection right upper lobe mass. Thoracoscopic right upper lobectomy. Surgeon Dr Leal Estimated Blood Loss 200ml Findings Frozen section showed adenocarcinoma right upper lobe. Specimens Frozen section #1 right upper lobe medial mass need diagnosis sent out at 0823. Frozen section #2 right upper lobe for bronchial margins sent out at 1007 A. R10 lymph node X3 B. R11 lymph node X2 C. R4 lymph node Drains one 24 FR chest Anesthesia GA Complication(s) None Disposition Recovery Room / PACU Indications Hypermetabolic mass right upper lobe. Description of Procedure Patient brought to the operating room and laid in supine position. He was intubated with a double-lumen tube. After appropriate timeout was called and the patient palced in the left lateral decubitus position, his right chest was prepped and draped in sterile fashion. After appropriate prophylactic antibiotics were given, a 5 mm port was placed below the tip of the scapula and a bit anterior. Carbon dioxide was insufflated. A 5 mm 0 scope was placed in to be seen there were some adhesions of the apex, but quite frankly the patient had good fissures and no other evidence of metastatic disease. A second incision was placed about the fourth interspace. This was a 3 cm access site. Another port was also placed about the seventh interspace anteriorly in line with the fissure. A 12 millimeter port was placed. With the use of the Harmonic scalpel, the apex was freed of adhesions. I did palpate along the medial aspect of the right upper lobe and felt thickening. A wedge was done with Endo ALEKSANDR staplers. Frozen section was done by Dr. Gurdeep Cerna who did not see a mass per se. Given the findings on CT and on the PET scan in particular, I elected to proceed with a lobectomy. The lung was retracted anteriorly and I freed up the posterior pleura. A level X and level XI nodes were biopsied. I then freed up the posterior mainstem bronchus as well as the right upper lobe bronchus. The patient was then evaluated anteriorly and the lung was retracted posteriorly. This allowed us to free up the anterior mediastinum and I took the superior pulmonary vein just distal to its confluence with the middle lobe vein and Endo ALEKSANDR vascular stapler. We were better able to retract the lobe. I dissected out some level X and level XI nodes. I then freed up the artery and there is an apical dorsal trunk which I divided with Endo ALEKSANDR stapler. This freed up yhe lobe nicely and I was able to get Endo ALEKSANDR stapler around the proximal bronchus and fire a stapler. We then completed the fissure using an Endo ALEKSANDR stapler. I did have to divide one more posterior descending arterial branch with Endo ALEKSANDR stapler. The mass was delivered off in a Endobag. Frozen section showed that he did indeed have an adenocarcinoma. The margins were negative. We had difficulty maintaining isolation after this. The patient would desaturate on one lung which as rather an acute change. He really did not change much in the way of his vital signs. I injected 266 mg of Exparell reconstituted in 60 mL of normal saline from an intrathoracic approach with the use of the the thoracoscope. I injected about 5 mL every interspace from the second to 11th interspace. Then, I took down the inferior pulmonary ligament. I did not really see a level VIII or level IX nodes. Without isolation, this became much more difficult. I then dissected out some more level X nodes in the level four node however, his saturations were dropping. We had difficulty maintaining isolation. My feeling was that we were probably dealing with a mechanical problem with the endotracheal tube. This was evaluated with a bronchoscope by the anesthesiologist who did not feel that this tube moved appreciably. After placing a 24 Sudanese chest tube through the anterior thoracoscopy port, it was sutured in place with heavy silk suture. Then the other incisions were closed using 0 Vicryl for the muscle layers and 4-0 Monocryl for the skin. I did fill the chest up with normal saline and inflated the lungs and did not see a leak at the bronchus or the staple lines. Attention was then turned towards the head of the bed. The patient had his sterile dressings applied to his wounds and he was placed back in the supine position and the beanbag was deflated. Using a tube changer, Dr. Lamont Ordonez removed the double lumen tube and put a single lumen tube. I then put the flexible fiberoptic bronchoscope down and saw there was a little bit of blood and I suctioned out some blood along the left mainstem bronchus but there was no bleeding. The stump was intact. I irrigated both airways. It looked quite good. I then slowly removed the bronchoscope. The patient tolerated this well and was extubated, then transported back to the postanesthesia care in stable condition. He greatly improved after the double lumen tube was removed I attest to the content of the Intraoperative Record and any orders documented therein. Any exceptions are noted below.
--- NOTE | 2016-10-10 12:01 | DIAGNOSTIC IMAGING REPORT ---
CHEST ONE VIEW PORTABLE CLINICAL HISTORY: post-op COMPARISON STUDY: 08/06/2016 FINDINGS: Postoperative changes right hemithorax. Right-sided chest tube in position. Very small right apical pneumothorax with pleural separation of approximately 2 cm. Slight compensatory cardiomediastinal silhouette shift to the right. Left lung remains generally clear. IMPRESSION: Small right apical pneumothorax status post right chest tube placement and lobectomy Electronically signed by: Andre Ca M.D. 10/10/2016 12:00 PM Dictated Date/Time: 10/10/2016 11:58 AM
--- NOTE | 2016-10-10 12:08 | Anesthesiology Progress Note ---
Anesthesia Post Op Note Date & Time Oct 10, 2016 at 12:04 Vital Signs Pain Intensity: 1 Vital Signs Past 12 Hours Date Time Temp Pulse Resp B/P (MAP) Pulse Ox O2 Delivery O2 Flow Rate FiO2 10/10/16 11:51 144/73 10/10/16 11:50 64 17 10/10/16 11:50 65 17 158/58 100 10/10/16 11:50 159/55 (92) 10/10/16 11:46 120/59 10/10/16 11:45 68 21 10/10/16 11:45 68 21 141/48 100 10/10/16 11:40 67 19 150/56 100 10/10/16 11:40 151/50 (81) NIBP 10/10/16 11:40 Mask 5 10/10/16 11:40 67 19 10/10/16 11:36 126/62 10/10/16 11:35 67 18 10/10/16 11:35 67 18 100 10/10/16 11:32 120/81 10/10/16 11:30 70 19 10/10/16 11:30 70 19 100 10/10/16 11:26 140/73 10/10/16 11:25 71 13 100 10/10/16 11:25 72 13 10/10/16 11:20 36.2 71 14 140/73 98 Mask 10 10/10/16 05:45 36.3 87 20 169/77 98 Room Air Notes Mental Status: alert / awake / arousable, participated in evaluation Pt Amnestic to Procedure: Yes Nausea / Vomiting: adequately controlled Pain: adequately controlled Airway Patency, RR, SpO2: stable & adequate BP & HR: stable & adequate Hydration State: stable & adequate Anesthetic Complications: no major complications apparent Operative course significant for episodes of NSVT or non sustained AFib with RVR (uanble to tell at rate) when surgeon was manipulating the pulmonary vein. These would breanne immediately on cessation of surgical stimulation. The patient was loaded with amiodarone 150mg and in PACU was started on an amiodarone drip for 24 hours. At the request of Dr Leal, the patient will be observed in the ICU for 24 hours. I spoke with the business strategist covering the SICU prior to the patient's discharge from PACU.
[2016-10-10] MEDS ORDERED: D5W AND 1/2NSS 1,000 ML IV SCH (13:30)
[2016-10-10] MEDS: KETOROLAC TROMETHAMINE 15 MG/ML VIAL IV. SCH ×2 (14:09→21:16)
[2016-10-10] MEDS: CLINDAMYCIN IV 900 MG in DEXTROSE 5% 100ML 100 ML IV SCH ×2 (14:09→19:43)
[2016-10-10] MEDS: SODIUM CHLORIDE 0.45% 1000ML 1,000 ML IV SCH (14:53)
[2016-10-10] MEDS ORDERED: LANTUS PER UNIT CHARGE SQ ONE (15:00)
[2016-10-10 15:16] LABS: BUN/CREATININE RATIO 11.8 (10-20); CALCIUM 8.1 mg/dl (8.5-10.1); CREATININE 1.8 mg/dl (0.60-1.40); POTASSIUM 4.3 mmol/L (3.5-5.1)
[2016-10-10 15:21] LABS: PHOSPHORUS 3.3 mg/dl (2.5-4.9)
[2016-10-10] MEDS: AMIODARONE / D5W 200 ML IV SCH ×2 (15:30→19:00)
--- NOTE | 2016-10-10 15:53 | Critical Care Consultation ---
Critical Care Consultation Date of Consultation: Oct 10, 2016. Attending Physician: Han Leal MD Reason for Consultation: Postop care status post right upper lobectomy. History of Present Illness The patient is a very nice 86-year-old gentleman admitted to the intensive care unit status post right upper lobectomy. He has a history of colon cancer and it appears as if in with a follow-up CT scan on 07/27/2016 a 2.2 x 0.7 cm groundglass irregular opacity in the right upper lobe apex was discovered. He underwent PET scan and head CT and was referred to Dr. Leal. The surgery today was described as uncomplicated although he was "oozy" and she has taken Aggrenox and Pletal preoperatively for his peripheral vascular disease. He has a history of chronic obstructive pulmonary disease with an FEV1 of 80%. Intraoperatively he was intubated with a #3 Abhi blade and had 1.9 L of IV fluid. He had 200 mL estimated blood loss and 500 mL urine output. He was extubated and brought to the intensive care unit from the PACU. He denies pain, shortness of breath, nausea or vomiting. He has had about 100 mL of bloody chest tube drainage since he had a chest tube placed, about 90 of that over the past several hours. Past Medical/Surgical History 1. Chronic obstructive pulmonary disease 2. Hypertension 3. Hyperlipidemia 4. Peripheral vascular disease 5. Diabetes mellitus type 2 with neuropathy, diet controlled 6. Chronic kidney disease stage III 7. Anemia 8. Second-degree AV block 9. Gout 10. Depression 11. Vitamin D deficiency 12. Anemia Past surgical history: 1. Status post EVAR 2. Appendectomy 3. Laparoscopic cholecystectomy 4. Partial colectomy Social History He is and lives alone. He smoked 1 pack of cigarettes per day for at least 40 years and quit in 1997. He doesn't drink any alcohol. He has a [employer] named [employer]. Smoking Status: Former Smoker Drug Use: none Marital Status: Housing Status: lives alone, lives with family Occupation Status: retired Allergies Coded Allergies: Amoxicillin (Verified Allergy, Severe, HIVES; ANGIOEDEMA, 10/10/16) Lisinopril (Verified Allergy, Mild, HIVES, 10/10/16) Penicillins (Verified Allergy, Mild, HIVES, 10/10/16) Home Medications Scheduled Allopurinol (Zyloprim), 1 TAB PO DAILY Atorvastatin (Atorvastatin Calcium), 10 MG PO QAM Cilostazol (Pletal), 100 MG PO BID Dipyridamole/Aspirin (Aggrenox 25-200 mg), 1 CAP PO BID Dutasteride (Dutasteride), 0.5 MG PO QAM Ergocalciferol (Vitamin D), 50,000 UNIT PO MONTHLY Escitalopram Oxalate (Escitalopram Oxalate), 10 MG PO QAM Furosemide (Furosemide), 20 MG PO 2XWK Gabapentin (Gabapentin), 300 MG PO HS Magnesium Chloride (Mag64), 1 TAB PO QAM Pantoprazole (Protonix), 40 MG PO BID Potassium Chloride Microencaps (Potassium Chloride Er), 20 MEQ PO QAM Scheduled PRN Triamcinolone Acet (Triamcinolone Acetonide), 1 APPLN TOP BID PRN for PRN Current Inpatient Medications Current Inpatient Medications Medications (Trade) Dose Ordered Sig/Hugo Route Start Time Stop Time Status Last Admin Dose Admin Amiodarone HCL/ Dextrose 200 ml @ 33.3 mls/hr Q6H1M IV 10/10/16 09:30 10/10/16 17:29 Ondansetron HCl (Zofran Inj) 4 mg Q4H PRN IV 10/10/16 11:30 11/09/16 11:29 Docusate Sodium (coLACE CAP) 100 mg BID PO 10/10/16 21:00 11/09/16 20:59 Ketorolac Tromethamine (Toradol Inj) 15 mg Q8H IV. 10/10/16 14:00 10/12/16 06:01 10/10/16 14:09 15 MG Clindamycin Phosphate 900 mg/ Dextrose 106 ml @ 100 mls/hr Q6H IV 10/10/16 14:00 10/10/16 21:04 10/10/16 14:09 100 MLS/HR Oxycodone/ Acetaminophen (Percocet 5-325mg Tab) Q3H PRN PO 10/10/16 11:30 10/24/16 11:29 Morphine Sulfate (MoRPHine SULFATE INJ) Q1H PRN IV 10/10/16 11:30 10/24/16 11:29 Allopurinol (Zyloprim Tab) 100 mg DAILY PO 10/11/16 09:00 11/10/16 08:59 Atorvastatin Calcium (Lipitor Tab) 10 mg QAM PO 10/11/16 09:00 11/10/16 08:59 Cilostazol (Pletal Tab) 100 mg BID PO 10/10/16 21:00 11/09/16 20:59 Dipyridamole/ Aspirin (Aggrenox 200MG/ 25MG Cap) 1 cap BID PO 10/10/16 21:00 11/09/16 20:59 Escitalopram Oxalate (Lexapro Tab) 10 mg QAM PO 10/11/16 09:00 11/10/16 08:59 Gabapentin (Neurontin Cap) 300 mg HS PO 10/10/16 21:00 11/09/16 20:59 Pantoprazole Sodium (Protonix Tab) 40 mg BID PO 10/10/16 21:00 11/09/16 20:59 Potassium Chloride (Klor-Con Tab) 20 meq QAM PO 10/11/16 09:00 11/10/16 08:59 Triamcinolone Acetonide (Kenalog 0.1% Oint) 1 appln BID PRN TOP 10/10/16 11:30 11/09/16 11:29 Miscellaneous Information (Order Awaiting Action) 1 ea QS N/A 10/10/16 16:00 11/09/16 15:59 Magnesium Chloride (Slow-Mag Tab) 64 mg DAILY PO 10/11/16 09:00 11/10/16 08:59 Amiodarone HCL/ Dextrose 200 ml @ 16.7 mls/hr [id number] IV 10/10/16 17:30 11/09/16 17:29 Insulin Aspart (novoLOG ASPART) SLIDING SCALE ACHS SC 10/10/16 16:00 11/09/16 15:59 Sodium Chloride 1,000 ml @ 100 mls/hr Q10H IV 10/10/16 14:45 11/09/16 14:44 10/10/16 14:53 100 MLS/HR Review of Systems Constitutional: No fever, No chills, No sweats ENT: No unusual epistaxis, No nasal symptoms, No sore throat Respiratory: No cough, No hemoptysis Cardiovascular: + claudication, No chest pain, No palpitations Abdomen: No pain, No nausea, No vomiting Neurologic: + numbness/tingling, + vertigo, + balance problems Psychiatric: No problem reported Endocrine: No excessive thirst, No excessive urination Physical Exam Date Time Temp Pulse Resp B/P (MAP) Pulse Ox O2 Delivery O2 Flow Rate FiO2 10/10/16 12:16 135/69 10/10/16 12:12 62 17 10/10/16 12:12 62 17 154/53 98 10/10/16 12:11 132/66 10/10/16 12:07 62 17 151/51 98 10/10/16 12:07 62 17 10/10/16 12:06 138/64 10/10/16 12:05 114/82 10/10/16 12:02 64 23 10/10/16 12:02 62 23 159/56 99 10/10/16 11:57 66 16 132/61 99 10/10/16 11:57 65 16 10/10/16 11:52 62 20 10/10/16 11:52 63 20 158/56 100 10/10/16 11:51 144/73 10/10/16 11:50 64 17 10/10/16 11:50 65 17 158/58 100 10/10/16 11:50 159/55 (92) 10/10/16 11:46 120/59 10/10/16 11:45 68 21 10/10/16 11:45 68 21 141/48 100 10/10/16 11:40 67 19 150/56 100 10/10/16 11:40 151/50 (81) NIBP 10/10/16 11:40 Mask 5 10/10/16 11:40 67 19 10/10/16 11:36 126/62 10/10/16 11:35 67 18 10/10/16 11:35 67 18 100 10/10/16 11:32 120/81 10/10/16 11:30 70 19 10/10/16 11:30 70 19 100 10/10/16 11:26 140/73 10/10/16 11:25 71 13 100 10/10/16 11:25 72 13 10/10/16 11:20 36.2 71 14 140/73 98 Mask 10 10/10/16 05:45 36.3 87 20 169/77 98 Room Air General Appearance: no apparent distress Head: normocephalic, atraumatic Eyes: PERRLA, no discharge, sclerae normal ENT: dentures Neck: trachea midline Respiratory: clear to auscultation, no respiratory distress, other (chest with symmetric expansion, R anterior chest tube with bloody drainage. No air leak.) Cardiovasular: regular rate/rhythm, no murmur Abdomen: non tender, normal bowel sounds, no guarding Upper Extremities: no edema, other (right radial a line in place) Lower Extremities: no edema Neuro: alert, oriented x 3, other (no focal abnormalities on limited exam) Psychiatric: normal affect Laboratory Results Last 24 Hours Test 10/10/16 05:38 10/10/16 12:07 10/10/16 14:45 Bedside Glucose 104 mg/dl 226 mg/dl Sodium Level 138 mmol/L Potassium Level 4.3 mmol/L Chloride Level 110 mmol/L Carbon Dioxide Level 20 mmol/L Anion Gap 8.0 mmol/L Blood Urea Nitrogen 21 mg/dl Creatinine 1.80 mg/dl Est Creatinine Clear Calc Drug Dose 32.1 ml/min Estimated GFR () 38.9 Estimated GFR (Non- 33.6 BUN/Creatinine Ratio 11.8 Random Glucose 270 mg/dl Calcium Level 8.1 mg/dl Magnesium Level 2.0 mg/dl Diagnostic Results 10/10/16 14:45 Test 10/10/16 12:07 10/10/16 14:45 Bedside Glucose 226 mg/dl (70-99) Anion Gap 8.0 mmol/L (3-11) Est Creatinine Clear Calc Drug Dose 32.1 ml/min Estimated GFR () 38.9 Estimated GFR (Non- 33.6 BUN/Creatinine Ratio 11.8 (10-20) Calcium Level 8.1 mg/dl (8.5-10.1) Phosphorus Level 3.3 mg/dl (2.5-4.9) Magnesium Level 2.0 mg/dl (1.8-2.4) Troponin I 0.021 ng/ml (0-0.045) Date/Time Source Procedure Growth Status 10/10/16 12:45 Nasal MRSA DNA Surveillance Screen - Final Specimen Negative for MRSA by DNA Probe Complete EKG shows normal sinus rhythm, first-degree AV block, nonspecific ST-T wave changes. Assessment & Plan 1. Status post right upper lobectomy secondary to mass. Doing well postoperatively. 2. Intraoperative atrial fibrillation, resolved. Presently on an amiodarone infusion 3. Diabetes mellitus with hyperglycemia, usually controlled by diet. 4. Peripheral vascular disease with use of Pletal and Aggrenox preoperatively, now oozing from the chest tube. 5. Right apical pneumothorax (chest x-ray was reviewed postoperatively). 6. History of neuropathy 7. History of hyperlipidemia 8. Hypertension 9. Chronic kidney disease stage III, I believe his baseline creatinine is about 1.9. Plan: Neuro: Morphine and Toradol for pain. IV Tylenol may also be of use. He also has Percocet ordered. Continue outpatient Neurontin. Pulmonary: Continue chest tube and follow chest x-ray to evaluate pneumothorax. Consider when necessary bronchodilators. Await pathology on the lung mass. Encourage incentive spirometry. Cardiovascular: Continue amiodarone infusion, replete electrolytes as needed, rule out myocardial infarction with serial cardiac enzymes. Endocrine: Lantus 10 units subcutaneously 1. Sliding scale insulin with NovoLog. Discontinue dextrose from IV fluids. Heme: Follow blood counts and chest tube output carefully. Dr. Leal is aware of the chest tube drainage. SCDs for DVT prophylaxis. Infectious disease: Continue perioperative clindamycin. Renal: Verify baseline creatinine. Appropriate dose of medications and avoid nephrotoxins. GI: Advance diet as tolerated. I will ensure that he has a diabetic diet. Continue outpatient Protonix. Miscellaneous: Physical therapy and occupational therapy tomorrow.
[2016-10-10 16:00] VITALS: BP 108/56; PULSE 72; TEMP 36.4; O2SAT 97
[2016-10-10] MEDS: AVODART-ORDER AWAITING ACTION SCH ×2 (16:00→23:04)
[2016-10-10] MEDS: INSULIN ASPART 100 UNITS/ML 3 ML PEN SC SCH ×2 (17:53→21:00)
[2016-10-10 18:00] VITALS: BP 101/54; PULSE 70; TEMP 36.4; O2SAT 99
[2016-10-10 20:00] VITALS: BP 161/77; PULSE 78; TEMP 36.4; O2SAT 100; O2SAT 99
[2016-10-10] MEDS: PANTOprazole SOD 40 MG TAB PO SCH (21:15)
[2016-10-10] MEDS: GABAPENTIN 300 MG CAP PO SCH (21:15)
[2016-10-10] MEDS: CILOSTAZOL 100 MG TAB PO SCH (21:15)
[2016-10-10] MEDS: DIPYRIDAMOLE/ASPIRIN CAP PO SCH (21:15)
[2016-10-10] MEDS: DOCUSATE SODIUM 100 MG CAP PO SCH (21:16)
[2016-10-10 22:00] VITALS: BP 151/67; PULSE 74; O2SAT 99
[2016-10-10] MEDS ORDERED: NURSING VERBAL MED ORDER ONE (22:30)
[2016-10-10] MEDS ORDERED: SODIUM CHLORIDE 0.9% 500ML 500 ML IV ONE (23:15)
[2016-10-10 23:59] VITALS: O2SAT 99
[2016-10-11] VITALS (11 sets, daily range): BP systolic 126–176; BP diastolic 55–90; PULSE 62–96; TEMP 36.6–37.1; O2SAT 93–100
[2016-10-11] MEDS: SODIUM CHLORIDE 0.45% 1000ML 1,000 ML IV SCH (00:45)
[2016-10-11] MEDS: KETOROLAC TROMETHAMINE 15 MG/ML VIAL IV. SCH (05:28)
[2016-10-11] MEDS: AMIODARONE / D5W 200 ML IV SCH (06:30)
[2016-10-11 07:20] LABS: COMPLETE YES
--- NOTE | 2016-10-11 07:54 | DIAGNOSTIC IMAGING REPORT ---
CHEST ONE VIEW PORTABLE CLINICAL HISTORY: s/p lobectomy postoperative evaluation COMPARISON STUDY: 10/02/2016 FINDINGS: No evidence for postprocedural pneumothorax. Right-sided chest tube is unchanged in position. Minimal atelectasis right base. Left lung remains generally clear. IMPRESSION: No evidence pneumothorax. Stable postoperative change. Electronically signed by: Andre Ca M.D. 10/11/2016 7:53 AM Dictated Date/Time: 10/11/2016 7:52 AM
[2016-10-11 08:04] LABS: BASO % 0.1 %; BASO ABS # 0.01 K/uL (0-0.2); EOS % 0.3 %; HEMATOCRIT 32.3 % (42-52); IG% 0.2 %; LYMPH % 3.5 %; MEAN CORPUSCULAR HEMOGLOBIN 31.2 pg (25-34); MEAN PLATELET VOLUME 8.6 fL (7.4-10.4); MONO % 9.9 %; PLATELET COUNT 122 K/uL (130-400); WHITE BLOOD COUNT 11.47 K/uL (4.8-10.8)
[2016-10-11 08:07] LABS: COMPLETE YES; MEAN CORPUSCULAR HGB CONC 32.8 g/dl (32-36)
--- NOTE | 2016-10-11 08:26 | Surgery Progress Note ---
Surgery Progress Note Date of Service Oct 11, 2016. Subjective Post OP Day: 1 + feeling well, + ambulating Objective Vital Signs: Date Time Temp Pulse Resp B/P (MAP) Pulse Ox O2 Delivery O2 Flow Rate FiO2 10/11/16 06:00 84 22 169/75 (106) 95 Nasal Cannula 2.0 10/11/16 04:00 98 Nasal Cannula 2.0 10/11/16 04:00 36.8 64 14 131/56 (81) 93 Nasal Cannula 2.0 10/11/16 02:00 68 23 134/55 (81) 96 Room Air 10/11/16 00:00 36.6 62 19 135/64 (87) 100 Nasal Cannula 2.0 10/10/16 23:59 99 Nasal Cannula 2.0 10/10/16 22:00 74 21 151/67 (95) 99 Nasal Cannula 2.0 10/10/16 20:00 36.4 78 21 161/77 (105) 100 Nasal Cannula 2.0 10/10/16 20:00 99 Nasal Cannula 2.0 10/10/16 18:00 36.4 70 20 101/54 (70) 99 Nasal Cannula 4.0 10/10/16 16:00 36.4 72 19 108/56 (73) 97 Nasal Cannula 4.0 10/10/16 16:00 97 Nasal Cannula 4.0 10/10/16 12:16 135/69 10/10/16 12:12 62 17 10/10/16 12:12 62 17 154/53 98 10/10/16 12:11 132/66 10/10/16 12:07 62 17 151/51 98 10/10/16 12:07 62 17 10/10/16 12:06 138/64 10/10/16 12:05 114/82 10/10/16 12:02 64 23 10/10/16 12:02 62 23 159/56 99 10/10/16 11:57 66 16 132/61 99 10/10/16 11:57 65 16 10/10/16 11:52 62 20 10/10/16 11:52 63 20 158/56 100 10/10/16 11:51 144/73 10/10/16 11:50 64 17 10/10/16 11:50 65 17 158/58 100 10/10/16 11:50 159/55 (92) 10/10/16 11:46 120/59 10/10/16 11:45 68 21 10/10/16 11:45 68 21 141/48 100 10/10/16 11:40 67 19 150/56 100 10/10/16 11:40 151/50 (81) NIBP 10/10/16 11:40 Mask 5 10/10/16 11:40 67 19 10/10/16 11:36 126/62 10/10/16 11:35 67 18 10/10/16 11:35 67 18 100 10/10/16 11:32 120/81 10/10/16 11:30 70 19 10/10/16 11:30 70 19 100 10/10/16 11:26 140/73 10/10/16 11:25 71 13 100 10/10/16 11:25 72 13 10/10/16 11:20 36.2 71 14 140/73 98 Mask 10 Physical Exam: chest tube drainage (650 mL total but serous this morning. He has no air leak.) General Appearance: no apparent distress Neck: no JVD Respiratory/Chest: + pertinent finding (patient is moving air very well. He has a few rhonchi particularly on the right. His chest tube placed but he has no wheezing.) Cardiovascular: regular rate, rhythm Abdomen: non tender, soft Incision(s): findings (dressings are dry.) Extremities: no pedal edema, no calf tenderness Laboratory Results: Results Past 24 Hours Test 10/10/16 12:07 10/10/16 14:45 10/10/16 16:33 10/10/16 20:25 Range/Units Bedside Glucose 226 248 70-99 mg/dl Sodium Level 138 136-145 mmol/L Potassium Level 4.3 3.5-5.1 mmol/L Chloride Level 110 98-107 mmol/L Carbon Dioxide Level 20 21-32 mmol/L Anion Gap 8.0 3-11 mmol/L Blood Urea Nitrogen 21 7-18 mg/dl Creatinine 1.80 0.60-1.40 mg/dl Est Creatinine Clear Calc Drug Dose 32.1 ml/min Estimated GFR () 38.9 Estimated GFR (Non- 33.6 BUN/Creatinine Ratio 11.8 10-20 Random Glucose 270 70-99 mg/dl Calcium Level 8.1 8.5-10.1 mg/dl Phosphorus Level 3.3 2.5-4.9 mg/dl Magnesium Level 2.0 1.8-2.4 mg/dl Troponin I 0.021 0.021 0-0.045 ng/ml Test 10/10/16 21:03 10/11/16 05:43 10/11/16 06:39 10/11/16 07:57 Range/Units Bedside Glucose 166 143 70-99 mg/dl White Blood Count 8.51 11.47 4.8-10.8 K/uL Red Blood Count 2.81 3.40 4.7-6.1 M/uL Hemoglobin 8.8 10.6 14.0-18.0 g/dL Hematocrit 26.8 32.3 42-52 % Mean Corpuscular Volume 95.4 95.0 80-100 fL Mean Corpuscular Hemoglobin 31.3 31.2 25-34 pg Mean Corpuscular Hemoglobin Concent 32.8 32.8 32-36 g/dl Platelet Count 107 122 130-400 K/uL Mean Platelet Volume 9.5 8.6 7.4-10.4 fL Neutrophils (%) (Auto) 82.8 86.0 % Lymphocytes (%) (Auto) 5.2 3.5 % Monocytes (%) (Auto) 11.2 9.9 % Eosinophils (%) (Auto) 0.5 0.3 % Basophils (%) (Auto) 0.1 0.1 % Neutrophils # (Auto) 7.05 9.87 1.4-6.5 K/uL Lymphocytes # (Auto) 0.44 0.40 1.2-3.4 K/uL Monocytes # (Auto) 0.95 1.13 0.11-0.59 K/uL Eosinophils # (Auto) 0.04 0.04 0-0.5 K/uL Basophils # (Auto) 0.01 0.01 0-0.2 K/uL RDW Standard Deviation 45.9 45.6 36.4-46.3 fL RDW Coefficient of Variation 13.1 13.1 11.5-14.5 % Immature Granulocyte % (Auto) 0.2 0.2 % Immature Granulocyte # (Auto) 0.02 0.02 0.00-0.02 K/uL Red Blood Cell Morphology Unremarkable Microbiology Results 10/10/16 MRSA DNA Surveillance Screen - Final, Complete Specimen Negative for MRSA by DNA Probe Diagnostic Interpretation: His x-ray looks quite good with no effusion no infiltrate and no pneumothorax. Assessment & Plan Postoperatively #1 status post thorascopic right upper lobectomy and mediastinal lymph node dissection. Adenocarcinoma right upper lobe. The patient had some tachycardic episodes in the operating room suite so we placed him on amiodarone. His heart rate has been normal with very little ectopy. I'm going to stop this amiodarone drip and move him up to telemetry so he can be monitored. Discontinue all IV fluids as he sitting up eating breakfast without difficulty. His pain control is excellent. He has no air leak and if the drainage continues to go down we will hopefully pull his chest tube and perhaps discuss discharging him in the morning. He has done remarkably well for a man of 86.
[2016-10-11 08:29] LABS: BLOOD UREA NITROGEN 24 mg/dl (7-18); BUN/CREATININE RATIO 12.1 (10-20); CALCIUM 8.3 mg/dl (8.5-10.1); CARBON DIOXIDE 22 mmol/L (21-32); CHLORIDE 105 mmol/L (98-107); GLUCOSE 160 mg/dl (70-99); MAGNESIUM 1.8 mg/dl (1.8-2.4); POTASSIUM 4.8 mmol/L (3.5-5.1); SODIUM 134 mmol/L (136-145)
[2016-10-11] MEDS: DOCUSATE SODIUM 100 MG CAP PO SCH ×2 (08:41→21:24)
[2016-10-11] MEDS: PANTOprazole SOD 40 MG TAB PO SCH ×2 (08:41→21:36)
[2016-10-11] MEDS: CILOSTAZOL 100 MG TAB PO SCH ×2 (08:41→21:36)
[2016-10-11] MEDS: DIPYRIDAMOLE/ASPIRIN CAP PO SCH ×2 (08:41→21:24)
[2016-10-11] MEDS: ATORVASTATIN 10 MG TAB PO SCH (08:41)
[2016-10-11] MEDS: ESCITALOPRAM OXALATE 10 MG TAB PO SCH (08:42)
[2016-10-11] MEDS: POTASSIUM CHLORIDE 20 MEQ TABCR PO SCH (08:42)
[2016-10-11] MEDS: ALLOPURINOL 100 MG TAB PO SCH (08:42)
[2016-10-11] MEDS: MAGNESIUM CHLORIDE 64MG DELAYED REL TAB PO SCH (08:42)
[2016-10-11 08:47] LABS: PHOSPHORUS 2.7 mg/dl (2.5-4.9)
--- NOTE | 2016-10-11 09:22 | Critical Care Progress Note ---
Critical Care Progress Note Date of Service Oct 11, 2016. ICU Day ICU Day Number: [address] Titus Subjective Pt felt well, denied any pain, palpitations, or shortness of breath. Had no concerns. Ambulated well. Will be transferred up to Telemetry later today. Objective GENERAL: Awake, alert, well-appearing, in no acute distress HENT: Normocephalic, atraumatic. . EYES: Normal conjunctiva. Sclera non-icteric. NECK: Supple. No nuchal rigidity. FROM. No JVD. RESPIRATORY: Clear to auscultation. R chest tube in place. CARDIAC: Regular rate, normal rhythm. Extremities warm and well perfused. Pulses equal. ABDOMEN: Soft, non-distended. No tenderness to palpation. No rebound or guarding. No masses. RECTAL: Deferred. MUSCULOSKELETAL: Chest examination reveals no tenderness. LOWER EXTREMITIES: Calves are equal size bilaterally and non-tender. No edema. No discoloration. NEURO: Normal sensorium. No sensory or motor deficits noted. SKIN: No rash or jaundice noted. Current SOFA Score SOFA Score Response (Comments) Value Platelets (x10) < 150 1 Bilirubin (mg/dL) < 1.2 0 [place] Coma Score 15 0 Level of Hypotension No Hypotension 0 Creatinine (mg/dL) 2.0 - 3.4 2 Total 3 Assessment & Plan 86 yo M with type 2 DM who is day 1 s/p Right VATS with Lobectomy/Wedge resection. Post-op had poor urine output so kc was placed and fluid bolus was provided, which has improved his UO. NEURO: CAM negative. Pain seems well controlled. Percocet ordered but not yet requested. Gabapentin 300mg continued. PULM: Encouraged incentive spirometry Chest tube may be removed by Dr Leal later today Pneumothorax resolved on repeat CXR CVS: Amiodarone drip stopped this AM Cardiac enzymes neg x 3 BP has fluctuated but is now 120-130 systolic He does not seem to be on any anti-hypertensives at home. : Flomax started today by Dr Leal RENAL: Baseline creatinine 1.9, today is 2. Electrolytes WNL Fluids stopped as pt is drinking well. Monitor UO. ID: Received Clindamycin preoperatively. GI: Full diabetic diet ENDO: Gave 10 units Lantus last night which has improved blood sugars, will continue to monitor MISC: Pt is stable to be transferred out of the ICU today. Please do not hesitate to contact us with any questions or concerns. Resident Physician Supervision Note/Senior Librarian: The patient's care was discussed in detail on multidisciplinary rounds today. I have interviewed and examined the patient. I have also reviewed the vital signs, I's and O's, notes, medications, labs, imaging and other reports. I have reviewed the above documentation and discussed the patient's care with . I agree with her impression and plan. Any clarifications will be presented below. Mr. Mckeon is status post right upper lobectomy secondary to mass yesterday. He had low urine output last night. He received a 500 mL normal saline bolus and a Kc catheter was placed. He developed some hematuria as well and has had a total of 390 mL out of his chest tube. His IV fluids have been stopped as has his amiodarone. There were no further arrhythmias overnight. He has ruled out for myocardial infarction and electrolytes are satisfactory. He continues on Aggrenox and Pletal. He may require flushing of his Kc on a regular basis until it is discontinued, probably tomorrow. He was started on Flomax. His family may bring in his Avodart. He admits to "discomfort" on the right side with deep breathing. He has not had any medication for pain this morning. He has Percocet ordered and I added some Tylenol to his profile. I encouraged him to use his incentive spirometry. His small apical right pneumothorax is resolved. He is ambulating with his cane. He is stable for transfer to the telemetry unit. His care was discussed with Dr. Leal as well. Please call with any questions or concerns. Documented By: Mariela Titus Consults & Procedures Consultants: ICU Procedures: L VATS with wedge resection and lobectomy on 10/10/16 Data Medications: Current Inpatient Medications Medications (Trade) Dose Ordered Sig/Hugo Route Start Time Stop Time Status Last Admin Dose Admin Docusate Sodium (coLACE CAP) 100 mg BID PO 10/10/16 21:00 11/09/16 20:59 10/11/16 08:41 100 MG Oxycodone/ Acetaminophen (Percocet 5-325mg Tab) Q3H PRN PO 10/10/16 11:30 10/24/16 11:29 Allopurinol (Zyloprim Tab) 100 mg DAILY PO 10/11/16 09:00 11/10/16 08:59 10/11/16 08:42 100 MG Atorvastatin Calcium (Lipitor Tab) 10 mg QAM PO 10/11/16 09:00 11/10/16 08:59 10/11/16 08:41 10 MG Cilostazol (Pletal Tab) 100 mg BID PO 10/10/16 21:00 11/09/16 20:59 10/11/16 08:41 100 MG Dipyridamole/ Aspirin (Aggrenox 200MG/ 25MG Cap) 1 cap BID PO 10/10/16 21:00 11/09/16 20:59 10/11/16 08:41 1 CAP Escitalopram Oxalate (Lexapro Tab) 10 mg QAM PO 10/11/16 09:00 11/10/16 08:59 10/11/16 08:42 10 MG Gabapentin (Neurontin Cap) 300 mg HS PO 10/10/16 21:00 11/09/16 20:59 10/10/16 21:15 300 MG Pantoprazole Sodium (Protonix Tab) 40 mg BID PO 10/10/16 21:00 11/09/16 20:59 10/11/16 08:41 40 MG Potassium Chloride (Klor-Con Tab) 20 meq QAM PO 10/11/16 09:00 11/10/16 08:59 10/11/16 08:42 20 MEQ Triamcinolone Acetonide (Kenalog 0.1% Oint) 1 appln BID PRN TOP 10/10/16 11:30 11/09/16 11:29 Magnesium Chloride (Slow-Mag Tab) 64 mg DAILY PO 10/11/16 09:00 11/10/16 08:59 10/11/16 08:42 64 MG Tamsulosin HCl (Flomax Cap) 0.4 mg HS PO 10/11/16 21:00 11/10/16 20:59 Vital Signs: Date Time Temp Pulse Resp B/P (MAP) Pulse Ox O2 Delivery O2 Flow Rate FiO2 10/11/16 08:00 36.6 77 26 126/69 (88) 93 Nasal Cannula 2.0 10/11/16 08:00 98 Nasal Cannula 2.0 10/11/16 06:00 84 22 169/75 (106) 95 Nasal Cannula 2.0 10/11/16 04:00 98 Nasal Cannula 2.0 10/11/16 04:00 36.8 64 14 131/56 (81) 93 Nasal Cannula 2.0 10/11/16 02:00 68 23 134/55 (81) 96 Room Air 10/11/16 00:00 36.6 62 19 135/64 (87) 100 Nasal Cannula 2.0 10/10/16 23:59 99 Nasal Cannula 2.0 10/10/16 22:00 74 21 151/67 (95) 99 Nasal Cannula 2.0 10/10/16 20:00 36.4 78 21 161/77 (105) 100 Nasal Cannula 2.0 10/10/16 20:00 99 Nasal Cannula 2.0 10/10/16 18:00 36.4 70 20 101/54 (70) 99 Nasal Cannula 4.0 10/10/16 16:00 36.4 72 19 108/56 (73) 97 Nasal Cannula 4.0 10/10/16 16:00 97 Nasal Cannula 4.0 10/10/16 12:16 135/69 10/10/16 12:12 62 17 10/10/16 12:12 62 17 154/53 98 10/10/16 12:11 132/66 10/10/16 12:07 62 17 151/51 98 10/10/16 12:07 62 17 10/10/16 12:06 138/64 10/10/16 12:05 114/82 10/10/16 12:02 64 23 10/10/16 12:02 62 23 159/56 99 10/10/16 11:57 66 16 132/61 99 10/10/16 11:57 65 16 10/10/16 11:52 62 20 10/10/16 11:52 63 20 158/56 100 10/10/16 11:51 144/73 10/10/16 11:50 64 17 10/10/16 11:50 65 17 158/58 100 10/10/16 11:50 159/55 (92) 10/10/16 11:46 120/59 10/10/16 11:45 68 21 10/10/16 11:45 68 21 141/48 100 10/10/16 11:40 67 19 150/56 100 10/10/16 11:40 151/50 (81) NIBP 10/10/16 11:40 Mask 5 10/10/16 11:40 67 19 10/10/16 11:36 126/62 10/10/16 11:35 67 18 10/10/16 11:35 67 18 100 10/10/16 11:32 120/81 10/10/16 11:30 70 19 10/10/16 11:30 70 19 100 10/10/16 11:26 140/73 10/10/16 11:25 71 13 100 10/10/16 11:25 72 13 10/10/16 11:20 36.2 71 14 140/73 98 Mask 10 Laboratory Results: Last 24 Hours Test 10/10/16 12:07 10/10/16 14:45 10/10/16 16:33 10/10/16 20:25 Bedside Glucose 226 mg/dl 248 mg/dl Sodium Level 138 mmol/L Potassium Level 4.3 mmol/L Chloride Level 110 mmol/L Carbon Dioxide Level 20 mmol/L Anion Gap 8.0 mmol/L Blood Urea Nitrogen 21 mg/dl Creatinine 1.80 mg/dl Est Creatinine Clear Calc Drug Dose 32.1 ml/min Estimated GFR () 38.9 Estimated GFR (Non- 33.6 BUN/Creatinine Ratio 11.8 Random Glucose 270 mg/dl Calcium Level 8.1 mg/dl Phosphorus Level 3.3 mg/dl Magnesium Level 2.0 mg/dl Troponin I 0.021 ng/ml 0.021 ng/ml Test 10/10/16 21:03 10/11/16 05:43 10/11/16 06:39 10/11/16 07:57 Bedside Glucose 166 mg/dl 143 mg/dl White Blood Count K/uL 11.47 K/uL Red Blood Count M/uL 3.40 M/uL Hemoglobin g/dL 10.6 g/dL Hematocrit % 32.3 % Mean Corpuscular Volume fL 95.0 fL Mean Corpuscular Hemoglobin pg 31.2 pg Mean Corpuscular Hemoglobin Concent g/dl 32.8 g/dl Platelet Count K/uL 122 K/uL Mean Platelet Volume fL 8.6 fL Neutrophils (%) (Auto) % 86.0 % Lymphocytes (%) (Auto) % 3.5 % Monocytes (%) (Auto) % 9.9 % Eosinophils (%) (Auto) % 0.3 % Basophils (%) (Auto) % 0.1 % Neutrophils # (Auto) K/uL 9.87 K/uL Lymphocytes # (Auto) K/uL 0.40 K/uL Monocytes # (Auto) K/uL 1.13 K/uL Eosinophils # (Auto) K/uL 0.04 K/uL Basophils # (Auto) K/uL 0.01 K/uL RDW Standard Deviation fL 45.6 fL RDW Coefficient of Variation % 13.1 % Immature Granulocyte % (Auto) % 0.2 % Immature Granulocyte # (Auto) K/uL 0.02 K/uL Red Blood Cell Morphology Unremarkable Sodium Level 134 mmol/L Potassium Level 4.8 mmol/L Chloride Level 105 mmol/L Carbon Dioxide Level 22 mmol/L Anion Gap 7.0 mmol/L Blood Urea Nitrogen 24 mg/dl Creatinine 2.00 mg/dl Est Creatinine Clear Calc Drug Dose 28.5 ml/min Estimated GFR () 34.3 Estimated GFR (Non- 29.6 BUN/Creatinine Ratio 12.1 Random Glucose 160 mg/dl Calcium Level 8.3 mg/dl Phosphorus Level 2.7 mg/dl Magnesium Level 1.8 mg/dl Troponin I < 0.015 ng/ml Resident Tracking Resident Involvement: Resident Care Provided Care Provided: Adult Hospital Medicine
--- NOTE | 2016-10-11 10:16 | Anesthesiology Progress Note ---
Anesthesia Post Op Note Date & Time Oct 11, 2016 at 10:16 Vital Signs Pain Intensity: 0.0 Vital Signs Past 12 Hours Date Time Temp Pulse Resp B/P (MAP) Pulse Ox O2 Delivery O2 Flow Rate FiO2 10/11/16 08:00 36.6 77 26 126/69 (88) 93 Nasal Cannula 2.0 10/11/16 08:00 98 Nasal Cannula 2.0 10/11/16 06:00 84 22 169/75 (106) 95 Nasal Cannula 2.0 10/11/16 04:00 98 Nasal Cannula 2.0 10/11/16 04:00 36.8 64 14 131/56 (81) 93 Nasal Cannula 2.0 10/11/16 02:00 68 23 134/55 (81) 96 Room Air 10/11/16 00:00 36.6 62 19 135/64 (87) 100 Nasal Cannula 2.0 10/10/16 23:59 99 Nasal Cannula 2.0 Notes Mental Status: alert / awake / arousable, participated in evaluation Pt Amnestic to Procedure: Yes Nausea / Vomiting: adequately controlled Pain: adequately controlled Airway Patency, RR, SpO2: stable & adequate BP & HR: stable & adequate Hydration State: stable & adequate Anesthetic Complications: no major complications apparent
[2016-10-11] MEDS ORDERED: ACETAMINOPHEN 500 MG TAB PO PRN (10:30)
[2016-10-11] MEDS: TAMSULOSIN HCL 0.4 MG CAP PO SCH (21:35)
[2016-10-11] MEDS: GABAPENTIN 300 MG CAP PO SCH (21:36)
[2016-10-12] VITALS (9 sets, daily range): BP systolic 121–160; BP diastolic 65–70; PULSE 81–113; TEMP 36.4–37; O2SAT 93–96
[2016-10-12 06:48] LABS: BASO % 0.2 %; BASO ABS # 0.02 K/uL (0-0.2); HEMATOCRIT 34.2 % (42-52); IG% 0.3 %; LYMPH % 7.1 %; LYMPH ABS # 0.78 K/uL (1.2-3.4); MEAN CELL VOLUME 95.3 fL (80-100); MEAN CORPUSCULAR HEMOGLOBIN 31.5 pg (25-34); MEAN PLATELET VOLUME 9.1 fL (7.4-10.4); MONO % 10.6 %; NEUT % 80.8 %; PLATELET COUNT 143 K/uL (130-400); RED BLOOD COUNT 3.59 M/uL (4.7-6.1); WHITE BLOOD COUNT 10.96 K/uL (4.8-10.8)
--- NOTE | 2016-10-12 07:01 | DIAGNOSTIC IMAGING REPORT ---
CHEST ONE VIEW PORTABLE CLINICAL HISTORY: lobectomy postoperative evaluation COMPARISON STUDY: 10/11/2016 FINDINGS: Stable postoperative changes right hemithorax. Right chest tube in good position. No evidence pneumothorax. IMPRESSION: No evidence for postprocedural pneumothorax. Stable postoperative changes right hemithorax. Electronically signed by: Andre Ca M.D. 10/12/2016 6:59 AM Dictated Date/Time: 10/12/2016 6:59 AM
[2016-10-12 07:05] LABS: POTASSIUM 4.4 mmol/L (3.5-5.1)
[2016-10-12 07:37] LABS: COMPLETE YES
[2016-10-12] MEDS: DOCUSATE SODIUM 100 MG CAP PO SCH ×2 (08:28→20:34)
[2016-10-12] MEDS: DIPYRIDAMOLE/ASPIRIN CAP PO SCH ×2 (08:28→20:34)
[2016-10-12] MEDS: CILOSTAZOL 100 MG TAB PO SCH ×2 (08:28→20:35)
[2016-10-12] MEDS: ALLOPURINOL 100 MG TAB PO SCH (08:28)
[2016-10-12] MEDS: PANTOprazole SOD 40 MG TAB PO SCH ×2 (08:28→20:35)
[2016-10-12] MEDS: ESCITALOPRAM OXALATE 10 MG TAB PO SCH (08:28)
[2016-10-12] MEDS: POTASSIUM CHLORIDE 20 MEQ TABCR PO SCH (08:28)
[2016-10-12] MEDS: ATORVASTATIN 10 MG TAB PO SCH (08:29)
[2016-10-12] MEDS: MAGNESIUM CHLORIDE 64MG DELAYED REL TAB PO SCH (08:29)
[2016-10-12] MEDS: MAGNESIUM SULFATE 1GM / D5W 1 GM in PREMIXED IN D5W 100 ML IV SCH ×2 (10:58→12:02)
[2016-10-12] MEDS: METOPROLOL TARTRATE 25 MG TAB PO SCH ×2 (12:02→20:34)
--- NOTE | 2016-10-12 16:12 | Progress Note ---
Progress Note Date of Service Oct 12, 2016. Progress Note Mr. Mckeon was seen today. He is on telemetry now and had a fairly quiet night except for his heart rate, which went up with PACs, he has had no evidence for fibrillation. I saw him this morning and he was able to void after removing the James catheter. Blood pressure was a little elevated also. I elected a time to give him some magnesium intravenously to supplement his level of 1.8. In addition I started him on low-dose Lopressor 12.5 mg by mouth twice a day. 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 At this point, I believe at this would be helpful if his heart rate sometimes up to the 130s to 150s when he is exerting himself. I saw him later this afternoon and he was much improved. He has been weaned off the oxygen. Chest tube is putting out very little so I removed it. He is ambulating in the hallway although he is a bit hesitant. His heart rate is now in the 70s and he has far fewer PACs and episodes of tachycardia. Assessment plan #1 postoperative day #2 status post thoracoscopic right upper lobectomy for a non-small cell lung carcinoma. Given his age of 86, I am going to keep him one more day to ensure that his blood pressure and heart rate remained stable. His x-ray looks good in the morning we will let him go home.
[2016-10-12] MEDS: GABAPENTIN 300 MG CAP PO SCH (20:34)
[2016-10-12] MEDS: TAMSULOSIN HCL 0.4 MG CAP PO SCH (20:35)
[2016-10-13 00:09] VITALS: BP 122/66; PULSE 89; TEMP 36.6; O2SAT 95
[2016-10-13 04:41] VITALS: BP 107/55; PULSE 81; TEMP 36.6; O2SAT 95
--- NOTE | 2016-10-13 06:59 | DIAGNOSTIC IMAGING REPORT ---
CHEST ONE VIEW PORTABLE CLINICAL HISTORY: s/p chest tube removal COMPARISON STUDY: Chest radiograph October 12, 2016. FINDINGS: The right chest tube has been removed. No pneumothorax is identified. Mild right lung airspace opacity is unchanged. There is no evidence of pulmonary edema. Cardiomediastinal silhouette is stable. There are cholecystectomy clips. IMPRESSION: No pneumothorax following right chest tube removal. Electronically signed by: Kristian Malone M.D. 10/13/2016 6:57 AM Dictated Date/Time: 10/13/2016 6:56 AM
--- NOTE | 2016-10-13 07:08 | Discharge Instructions ---
Discharge Instructions Date of Service Oct 13, 2016. Admission Reason for Admission: Lung Nodule Discharge Discharge Diagnosis / Problem: Carcinoma right upper lobe Discharge Goals Goal(s): Learn about illness (We will discuss your patholgy findings next week. ) Activity Recommendations Activity Limitations: as noted below Lifting Limitations: gradually increase as tolerated Exercise/Sports Limitations: gradually increase as tolerated May Resume Sexual Activity: when tolerated Shower/Bathe: may shower/bathe in 3 days Driving or Machine Use: Wait until I see you in the office. . Instructions / Follow-Up Instructions / Follow-Up The office will call you and make appointment for you for next week. Call the hospital and page me for any problems - [phone]. Current Hospital Diet Patient's current hospital diet: Diabetes Type 2 Diet Discharge Diet Recommended Diet: Diabetes Type 2 Diet Procedures Procedures Performed: Right Video-assisted Thoracoscopy with Right Upper Lobe Wedge Resection, Right Upper Lobectomy with Mediastinal Lymphadenectomy, Fiberoptic Flexible Bronchoscopy Pending Studies Studies pending at discharge: yes List of pending studies: Pathology Laboratory Results Hemoglobin A1c Test 09/05/16 10:24 Range/Units Estimated Average Glucose 128 mg/dl Hemoglobin A1c 6.1 H 4.5-5.6 % Lipid Panel Test 09/05/16 10:24 Range/Units Triglycerides Level 273 H 0-150 mg/dl Cholesterol Level 110 0-200 mg/dl HDL Cholesterol 32 mg/dl Cholesterol/HDL Ratio 3.4 LDL Cholesterol, Calculated 23 mg/dl Medical Emergencies . Who to Call and When: Medical Emergencies: If at any time you feel your situation is an emergency, please call 911 immediately. . Non-Emergent Contact Non-Emergency issues call your: Primary Care Provider . "Provider Documentation" section prepared by Han Leal. . VTE Core Measure Inpt VTE Proph given/why not?: Enoxaparin (Lovenox)SQ, SCD's
[2016-10-13 07:21] VITALS: BP 107/66; PULSE 88; TEMP 36.5; O2SAT 94
--- NOTE | 2016-10-13 07:38 | Discharge Summary ---
Discharge Summary Date of Service Oct 13, 2016. 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 After workup it was determined that despite his advanced age he would be a candidate for resection. On 10/10/2016 I took the patient to the operating room and he underwent an uncomplicated thoracoscopic right upper lobectomy. He did very well with the surgery. He had no air leak. He had some tachycardia when we were manipulating around the heart and the operating room and I watched him in the ICU on an amiodarone drip overnight as I felt that his propensity for going into atrial fibrillation would be rather high. I stopped the amiodarone drip the following day. We watched him in telemetry for another 48 hours. I started him on low-dose Lopressor 12.5 mg as he was a bit tachycardic with PACs. This helped him a great deal. I removed his chest tube on postop day 2. On the morning of discharge he was on room air. He is ambulating in the hallway with a walker. He was eating well. His x -ray showed no pneumothorax, pleural effusion, or infiltrate. His incisions were clean. We are going to discharge him today and I will see him back within the week to go over his pathology results. His pain control was excellent and he required no narcotics at the time of discharge. Discharge instructions were given and he was instructed to call the hospital and page me if there are any questions.
[2016-10-13] MEDS ORDERED: LPR25 PO (07:55)
[2016-10-13] MEDS: ATORVASTATIN 10 MG TAB PO SCH (08:37)
[2016-10-13] MEDS: ALLOPURINOL 100 MG TAB PO SCH (08:37)
[2016-10-13] MEDS: DIPYRIDAMOLE/ASPIRIN CAP PO SCH (08:37)
[2016-10-13] MEDS: CILOSTAZOL 100 MG TAB PO SCH (08:38)
[2016-10-13] MEDS: DOCUSATE SODIUM 100 MG CAP PO SCH (08:38)
[2016-10-13] MEDS: POTASSIUM CHLORIDE 20 MEQ TABCR PO SCH (08:38)
[2016-10-13] MEDS: PANTOprazole SOD 40 MG TAB PO SCH (08:38)
[2016-10-13] MEDS: MAGNESIUM CHLORIDE 64MG DELAYED REL TAB PO SCH (08:38)
[2016-10-13] MEDS: ESCITALOPRAM OXALATE 10 MG TAB PO SCH (08:39)
[2016-10-13] MEDS: METOPROLOL TARTRATE 25 MG TAB PO SCH (08:39)
[2016-10-13 08:48] VITALS: BP 107/66; PULSE 88; TEMP 36.5; O2SAT 94
[2016-11-08] MEDS ORDERED: METO25TA56 PO (15:36)
== END 2016-10-13 10:30 | disposition home or self-care (01) | DRG 164 ==
LOC: C.ACU 05:06 → C.MSICU 07:00 → ENRESERV 11:52 → C.2T 10-11 08:50 → ENRESERV 10-11 09:13
PROVIDERS: ADMIT Surgery; ATTEND Surgery
PROC: 0BTC0ZZ Resection of Right Upper Lung Lobe, Open Approach (ICD-10-PCS; principal; 2016-10-10 07:15)
DX: C34.11 Malignant neoplasm of upper lobe, right bronchus or lung (principal); J95.811 Postprocedural pneumothorax; J44.9 Chronic obstructive pulmonary disease, unspecified; I10 Essential (primary) hypertension; E78.5 Hyperlipidemia, unspecified; I73.9 Peripheral vascular disease, unspecified; N18.3 Chronic kidney disease, stage 3 (moderate); I44.1 Atrioventricular block, second degree; M10.9 Gout, unspecified; F32.9 Major depressive disorder, single episode, unspecified; E55.9 Vitamin D deficiency, unspecified; Z87.891 Personal history of nicotine dependence

== ENCOUNTER → 2016-10-22 | Outpatient (CLI) | payer OTHER ==
[~2016-10-22] MED LIST changes: +ALLO100T PO; +LPR25 PO; +METO25TA56 PO
--- NOTE | 2016-10-22 09:33 | DIAGNOSTIC IMAGING REPORT ---
CHEST 2 VIEWS ROUTINE HISTORY:86 [id number] Lung nodule COMPARISON: Chest radiograph 10/13/2016, PET CT 09/17/2016. TECHNIQUE: Frontal and lateral views of the chest. FINDINGS: Chronic silhouette is again mildly enlarged with extensive atherosclerosis of the aorta. There is no pneumothorax. The left lung is again clear and mildly hyperinflated. There is unchanged mild right hemidiaphragmatic elevation. Mild blunting of the right costophrenic and cardiophrenic angles are noted. Groundglass nodule discussed on comparison PET CT is not clearly seen on today's study. Bones appear to be intact. IMPRESSION: Small right pleural effusion. The above report was generated using voice recognition software. It may contain grammatical, syntax or spelling errors. Electronically signed by: Lenny Jarvis 10/22/2016 9:32 AM Dictated Date/Time: 10/22/2016 9:28 AM
== END | disposition home or self-care (01) ==
LOC: C.RAD 08:56
PROVIDERS: ATTEND Surgery
DX: R91.1 Solitary pulmonary nodule (principal)

== ENCOUNTER → 2016-11-21 | Day surgery (SDC) | payer OTHER ==
[2016-11-08 15:38] VITALS: Ht 177.8 cm; Wt 81.8 kg
[~2016-11-21] VITALS: Ht 177.8 cm; Wt 81.8 kg
[~2016-11-21] MED LIST changes: +LIDOCAINE HCL 2% 2 ML VIAL (20MG/ML) ONE; -LPR25 PO; +PROPOFOL IV EMULSION 10 MG/ML 20 ML VIAL IV ONE; +SODIUM CHLORIDE 0.9% 500ML 500 ML IV ONE
--- NOTE | 2016-11-21 13:15 | Endo History and Physical ---
History & Physical Date of Service: Nov 21, 2016. Chief Complaint: esophagitis Referring Physician: History of Present Illness esophagitis followup Past Medical History Diabetes, Angioplasty/Stent, Reflux, Cancer, High Cholesterol, Hypertension, Kidney Disease Past Surgical History Hx Cardiac Surgery: Yes (AAA STENT 2014) Hx Internal Defibrillator: No Hx Pacemaker: No Hx Abdominal Surgery: No Hx of Implantable Prosthesis: No Hx Post-Op Nausea and Vomiting: No Hx Cancer Surgery: Yes (RT UPPER LOBECTOMY AND LYMPH NODE RESECTION, COLON RESECTION) Hx Thoracic Surgery: No Hx Orthopedic: No Hx Urinary Tract Surgery: No Family History None Social History Smoking Status: Former Smoker Hx Substance Use: No Hx Alcohol Use: Yes (2-3 BEERS 3-4 DAYS/WEEK) Allergies Coded Allergies: Amoxicillin (Verified Allergy, Severe, HIVES; ANGIOEDEMA, 11/08/16) Lisinopril (Verified Allergy, Mild, HIVES, 11/08/16) Penicillins (Verified Allergy, Mild, HIVES, 11/08/16) Current Medications Reported Home Medications Medications Dose Route/Sig Max Daily Dose Days Date Category Dose Instructions Lopressor (Metoprolol Tartrate) 25 Mg Tab 0.5 Tab PO BID 11/08/16 Reported Zyloprim (Allopurinol) 100 Mg Tab 1 Tab PO QAM 10/10/16 Reported Triamcinolone Acetonide (Triamcinolone Acet) 45 Appln/15 Gm Oint 1 Appln TOP BID PRN 09/27/16 Reported Protonix (Pantoprazole Sodium) 40 Mg Tab 40 Mg PO BID 09/27/16 Reported Pletal (Cilostazol) 100 Mg Tab 100 Mg PO BID 09/27/16 Reported Vitamin D (Ergocalciferol) 50,000 Interunit Cap 50,000 Unit PO MONTHLY 08/19/16 Reported THE Mag64 (Magnesium Chloride) Unknown Strength Tab 1 Tab PO HS 08/06/16 Reported Gabapentin 300 Mg Cap 300 Mg PO HS 08/06/16 Reported Escitalopram Oxalate 10 Mg Tab 10 Mg PO QAM 08/06/16 Reported Atorvastatin Calcium (Atorvastatin) 10 Mg Tab 10 Mg PO QAM 08/06/16 Reported Furosemide 20 Mg Tab 20 Mg PO 2XWK 08/06/16 Reported SATURDAY AND THURSDAYS Dutasteride 0.5 Mg Cap 0.5 Mg PO QAM 08/06/16 Reported Potassium Chloride Er (Potassium Chloride Microencaps) 20 Meq Tab 20 Meq PO QAM 08/06/16 Reported Aggrenox 25-200 mg (Dipyridamole/Aspirin) 1 Cap Cap 1 Cap PO BID 06/23/16 Reported Vital Signs Weight (Kilograms): 81.82 Height (Feet): 5 Height (Inches): 10 Physical Exam AAO)3 Nls1s2 Lungs CTA Abd soft NT/ND + BS - CCE Assessment and Plan EGD /bx
--- NOTE | 2016-11-21 13:45 | GI REPORT ---
Procedure Date: 11/21/2016 1:29 PM Procedure: Upper GI endoscopy Indications: Esophageal ulcer Medicines: Propofol per Anesthesia Complications: No immediate complications. Estimated blood loss: Minimal. Estimated Blood Loss: Estimated blood loss was minimal. Procedure: Pre-Anesthesia Assessment: - Prior to the procedure, a History and Physical was performed, and patient medications and allergies were reviewed. The patient's tolerance of previous anesthesia was also reviewed. The risks and benefits of the procedure and the sedation options and risks were discussed with the patient. All questions were answered, and informed consent was obtained. Prior Anticoagulants: The patient has taken no previous anticoagulant or antiplatelet agents. ASA Grade Assessment: II - A patient with mild systemic disease. After reviewing the risks and benefits, the patient was deemed in satisfactory condition to undergo the procedure. After obtaining informed consent, the endoscope was passed under direct vision. Throughout the procedure, the patient's blood pressure, pulse, and oxygen saturations were monitored continuously. The scope was introduced through the mouth, and advanced to the second part of duodenum. The upper GI endoscopy was accomplished without difficulty. The patient tolerated the procedure well. Findings: The upper third of the esophagus and middle third of the esophagus were normal. A small hiatus hernia was found. The proximal extent of the gastric folds (end of tubular esophagus) was 35 cm from the incisors. The hiatal narrowing was 37 cm from the incisors. The Z-line was 34 cm from the incisors. Biopsies were taken with a cold forceps for histology. Estimated blood loss was minimal. Verification of patient identification for the specimen was done by the physician and ink technician using the patient's name and medical record number. The entire examined stomach was normal. The examined duodenum was normal. Retained gastric contents are not identified on this exam. The cardia and gastric fundus were normal on retroflexion. Impression: - Normal upper third of esophagus and middle third of esophagus. - Small hiatus hernia. Biopsied. - Normal stomach. - Normal examined duodenum. Recommendation: - Discharge patient to home (ambulatory). - Resume regular diet. - Continue present medications. - Use Prilosec (omeprazole) 40 mg PO daily. - Await pathology results. - Return to referring physician as previously scheduled. MD George Salter MD 11/21/2016 1:44:25 PM This report has been signed electronically. Note Initiated On: 11/21/2016 1:29 PM I attest to the content of the Intraoperative Record and orders documented therein, exceptions below
--- NOTE | 2016-11-21 13:49 | Discharge Instructions ---
Endoscopy Patient Instructions Date / Procedure(s) Performed Nov 21, 2016. EGD Allergy Information Coded Allergies: Amoxicillin (Verified Allergy, Severe, HIVES; ANGIOEDEMA, 11/08/16) Lisinopril (Verified Allergy, Mild, HIVES, 11/08/16) Penicillins (Verified Allergy, Mild, HIVES, 11/08/16) Discharge Date / Findings Nov 21, 2016. HH ? short seg BE Medication Instructions Stopped Medication(s): AGGRENOX 11/20/16 Restart Stopped Medication(s): Reported Home Medications Medications Dose Route/Sig Max Daily Dose Days Date Category Dose Instructions Lopressor (Metoprolol Tartrate) 25 Mg Tab 0.5 Tab PO BID 11/08/16 Reported Zyloprim (Allopurinol) 100 Mg Tab 1 Tab PO QAM 10/10/16 Reported Triamcinolone Acetonide (Triamcinolone Acet) 45 Appln/15 Gm Oint 1 Appln TOP BID PRN 09/27/16 Reported Protonix (Pantoprazole Sodium) 40 Mg Tab 40 Mg PO BID 09/27/16 Reported Pletal (Cilostazol) 100 Mg Tab 100 Mg PO BID 09/27/16 Reported Vitamin D (Ergocalciferol) 50,000 Interunit Cap 50,000 Unit PO MONTHLY 08/19/16 Reported THE Mag64 (Magnesium Chloride) Unknown Strength Tab 1 Tab PO HS 08/06/16 Reported Gabapentin 300 Mg Cap 300 Mg PO HS 08/06/16 Reported Escitalopram Oxalate 10 Mg Tab 10 Mg PO QAM 08/06/16 Reported Atorvastatin Calcium (Atorvastatin) 10 Mg Tab 10 Mg PO QAM 08/06/16 Reported Furosemide 20 Mg Tab 20 Mg PO 2XWK 08/06/16 Reported SATURDAY AND THURSDAYS Dutasteride 0.5 Mg Cap 0.5 Mg PO QAM 08/06/16 Reported Potassium Chloride Er (Potassium Chloride Microencaps) 20 Meq Tab 20 Meq PO QAM 08/06/16 Reported Aggrenox 25-200 mg (Dipyridamole/Aspirin) 1 Cap Cap 1 Cap PO BID 06/23/16 Reported Can reduce Protonix to 40 mg daily Reported Home Medications Medications Dose Route/Sig Max Daily Dose Days Date Category Dose Instructions Lopressor (Metoprolol Tartrate) 25 Mg Tab 0.5 Tab PO BID 11/08/16 Reported Zyloprim (Allopurinol) 100 Mg Tab 1 Tab PO QAM 10/10/16 Reported Triamcinolone Acetonide (Triamcinolone Acet) 45 Appln/15 Gm Oint 1 Appln TOP BID PRN 09/27/16 Reported Protonix (Pantoprazole Sodium) 40 Mg Tab 40 Mg PO BID 09/27/16 Reported Pletal (Cilostazol) 100 Mg Tab 100 Mg PO BID 09/27/16 Reported Vitamin D (Ergocalciferol) 50,000 Interunit Cap 50,000 Unit PO MONTHLY 08/19/16 Reported THE Mag64 (Magnesium Chloride) Unknown Strength Tab 1 Tab PO HS 08/06/16 Reported Gabapentin 300 Mg Cap 300 Mg PO HS 08/06/16 Reported Escitalopram Oxalate 10 Mg Tab 10 Mg PO QAM 08/06/16 Reported Atorvastatin Calcium (Atorvastatin) 10 Mg Tab 10 Mg PO QAM 08/06/16 Reported Furosemide 20 Mg Tab 20 Mg PO 2XWK 08/06/16 Reported SATURDAY AND THURSDAYS Dutasteride 0.5 Mg Cap 0.5 Mg PO QAM 08/06/16 Reported Potassium Chloride Er (Potassium Chloride Microencaps) 20 Meq Tab 20 Meq PO QAM 08/06/16 Reported Aggrenox 25-200 mg (Dipyridamole/Aspirin) 1 Cap Cap 1 Cap PO BID 06/23/16 Reported Can reduce Protonix to 40 mg daily Provider Instructions Activity Restrictions - No exercising or heavy lifting for 24 hours. - Do not drink alcohol the day of the procedure. - Do not drive a car or operate machinery until the day after the procedure. - Do not make any important decisions or sign important papers in 24 hours after the procedure. Following Day: - Return to full activity which may include returning to work/school. Diet Start your diet with liquids and light foods (jello, soup, juice, toast). Then eat your usual diet if not nauseated. Treatment For Common After Affects For mild abdominal pain, bloating, or excessive gas: - Rest - Eat lightly - Lie on right side Follow-Up Information Follow-up with DR. HILLMAN as scheduled Anesthesia Information What You Should Know You have had a procedure that required some medicine to reduce anxiety and discomfort. This treatment is called moderate sedation. After receiving the treatment, you may be sleepy, but you will be able to breathe on your own. The effects of the treatment may last for several hours. Follow these instructions along with Activity/Diet recommendations noted above: * Do NOT do anything where dizziness or clumsiness would be dangerous. * Rest quietly at home today, then you can be up and about tomorrow. * Have a responsible person stay with you the rest of today. * You may have had an I.V. today. If so, you may take the dressing off later today. Recommendations Call your doctor if: * Trouble breathing * Continuous vomiting for more than 24 hours * Temperature above 101 degrees * Severe abdominal pain or bloating * Pain not relieved by pain medicine ordered * There is increased drainage or redness from any incision * A large amount of rectal bleeding greater than 2-3 tablespoons. (If you had a polyp/s removed or have hemorrhoids, a small amount of blood - from the rectum is to be expected.) * You have any unanswered questions or concerns. IN THE EVENT OF A SERIOUS EMERGENCY, GO TO THE NEAREST EMERGENCY ROOM Your discharge instructions were prepared by provider George Juarez. Patient Instructions Signature Page Danny Mckeon Patient (or Guardian) Signature/Date: I have read and understand the instructions given to me by my caregivers. Caregiver/RN/Doctor Signature/Date: The above-named patient and/or guardian has received patient instructions on this date. + Original Patient Signature Page (only) stays with chart. Please make copy for patient.
--- NOTE | 2016-11-21 14:05 | Anesthesiology Progress Note ---
Anesthesia Post Op Note Date & Time Nov 21, 2016 at 14:05 Vital Signs Pain Intensity: 0 Vital Signs Past 12 Hours Date Time Temp Pulse Resp B/P (MAP) Pulse Ox O2 Delivery O2 Flow Rate FiO2 11/21/16 13:58 36.7 78 20 125/57 (79) 96 Room Air 11/21/16 13:42 78 20 96/49 (65) 98 Room Air 11/21/16 13:16 36.7 87 20 158/82 (107) 98 Room Air Notes Mental Status: alert / awake / arousable, participated in evaluation Pt Amnestic to Procedure: Yes Nausea / Vomiting: adequately controlled Pain: adequately controlled Airway Patency, RR, SpO2: stable & adequate BP & HR: stable & adequate Hydration State: stable & adequate Anesthetic Complications: no major complications apparent
[2016-11-21 14:15] VITALS: BP 137/84; PULSE 74; O2SAT 98
== END | disposition home or self-care (01) ==
LOC: C.GI 12:12
PROVIDERS: ATTEND Internal Medicine Gastroenterology
DX: K44.9 Diaphragmatic hernia without obstruction or gangrene (principal); I10 Essential (primary) hypertension; E78.00 Pure hypercholesterolemia, unspecified; E11.9 Type 2 diabetes mellitus without complications; K21.9 Gastro-esophageal reflux disease without esophagitis; N28.9 Disorder of kidney and ureter, unspecified; Z95.5 Presence of coronary angioplasty implant and graft; Z79.899 Other long term (current) drug therapy

== ENCOUNTER → 2016-12-05 | Outpatient (CLI) | payer OTHER ==
[~2016-12-05] MED LIST changes: -LIDOCAINE HCL 2% 2 ML VIAL (20MG/ML) ONE; -PROPOFOL IV EMULSION 10 MG/ML 20 ML VIAL IV ONE; -SODIUM CHLORIDE 0.9% 500ML 500 ML IV ONE
[2016-12-05 17:45] LABS: HEMATOCRIT 34.9 % (42-52); MEAN CELL VOLUME 92.8 fL (80-100); MEAN CORPUSCULAR HEMOGLOBIN 29.3 pg (25-34); MEAN CORPUSCULAR HGB CONC 31.5 g/dl (32-36); PLATELET COUNT 205 K/uL (130-400); RED BLOOD COUNT 3.76 M/uL (4.7-6.1); WHITE BLOOD COUNT 6.12 K/uL (4.8-10.8)
[2016-12-05 18:04] LABS: URINE APPEARANCE CLEAR (CLEAR); URINE BILIRUBIN NEG (NEG); URINE COLOR YELLOW; URINE NITRITE NEG (NEG); URINE PH 5.5 (4.5-7.5); URINE SPECIFIC GRAVITY 1.016 (1.000-1.030); UROBILINOGEN NEG (NEG)
[2016-12-05 18:11] LABS: MANUAL MICROSCOPIC REQUIRED? NO; REVIEW REQ? YES
[2016-12-05 18:21] LABS: URINE PROTIEN/CREAT RATIO 0.3 (0-0.2); URINE TOTAL PROTEIN 43.8 mg/dl (0-11.9)
[2016-12-05 18:22] LABS: BLOOD UREA NITROGEN 16 mg/dl (7-18); CARBON DIOXIDE 21 mmol/L (21-32); CHLORIDE 112 mmol/L (98-107); GLUCOSE 118 mg/dl (70-99); SODIUM 141 mmol/L (136-145)
[2016-12-05 18:24] LABS: ALB/GLOB RATIO 0.9 (0.9-2); ALKALINE PHOSPHATASE 144 U/L (45-117); ALT/SGPT 17 U/L (12-78); AST/SGOT 13 U/L (15-37)
[2016-12-05 18:33] LABS: URINE MUCUS PRESENT (NONE PRSENT)
== END | disposition home or self-care (01) ==
LOC: C.LABPVFM 15:50
PROVIDERS: ATTEND Internal Medicine Nephrology
DX: I10 Essential (primary) hypertension (principal); N18.3 Chronic kidney disease, stage 3 (moderate); D64.9 Anemia, unspecified; E55.9 Vitamin D deficiency, unspecified

== ENCOUNTER → 2017-04-05 | Outpatient (CLI) | payer OTHER ==
[~2017-04-05] MED LIST changes: +ERGO500037 PO; -METO25TA56 PO; -VTMD PO
[2017-04-05 12:57] LABS: HEMATOCRIT 38.6 % (42-52); MEAN CELL VOLUME 87.5 fL (80-100); MEAN CORPUSCULAR HEMOGLOBIN 28.6 pg (25-34); MEAN CORPUSCULAR HGB CONC 32.6 g/dl (32-36); MEAN PLATELET VOLUME 10.3 fL (7.4-10.4); PLATELET COUNT 206 K/uL (130-400); RED BLOOD COUNT 4.41 M/uL (4.7-6.1); WHITE BLOOD COUNT 9.12 K/uL (4.8-10.8)
[2017-04-05 13:12] LABS: URINE APPEARANCE CLEAR (CLEAR); URINE BILIRUBIN NEG (NEG); URINE COLOR YELLOW; URINE NITRITE NEG (NEG); URINE SPECIFIC GRAVITY 1.016 (1.000-1.030); UROBILINOGEN NEG (NEG)
[2017-04-05 13:16] LABS: URINE TOTAL PROTEIN 59.1 mg/dl (0-11.9)
[2017-04-05 13:27] LABS: MANUAL MICROSCOPIC REQUIRED? NO; REVIEW REQ? NO; URINE PROTIEN/CREAT RATIO 0.6 (0-0.2)
[2017-04-05 13:32] LABS: BLOOD UREA NITROGEN 33 mg/dl (7-18); BUN/CREATININE RATIO 14.4 (10-20); CALCIUM 8.2 mg/dl (8.5-10.1); CARBON DIOXIDE 17 mmol/L (21-32); CHLORIDE 111 mmol/L (98-107); CREATININE 2.29 mg/dl (0.60-1.40); GLUCOSE 117 mg/dl (70-99); PHOSPHORUS 3.7 mg/dl (2.5-4.9); POTASSIUM 2.9 mmol/L (3.5-5.1); SODIUM 137 mmol/L (136-145)
[2017-04-06 06:55] LABS: ESTIMATED AVERAGE GLUCOSE 134 mg/dl; HA1C FLAG Normal (Normal)
== END | disposition home or self-care (01) ==
LOC: C.LABPVFM 09:10
PROVIDERS: ATTEND Internal Medicine Nephrology
DX: I12.9 Hypertensive chronic kidney disease with stage 1 through stage 4 chronic kidney disease, or unspecified chronic kidney disease (principal); R80.9 Proteinuria, unspecified; N18.3 Chronic kidney disease, stage 3 (moderate); D64.9 Anemia, unspecified; E55.9 Vitamin D deficiency, unspecified; M1A.9XX0 Chronic gout, unspecified, without tophus (tophi); F32.9 Major depressive disorder, single episode, unspecified; E78.5 Hyperlipidemia, unspecified; I73.9 Peripheral vascular disease, unspecified; R73.9 Hyperglycemia, unspecified

== ENCOUNTER → 2017-05-09 | Outpatient (CLI) | payer OTHER ==
--- NOTE | 2017-05-09 13:54 | DIAGNOSTIC IMAGING REPORT ---
CT SCAN OF THE CHEST WITHOUT IV CONTRAST CLINICAL HISTORY: Pulmonary nodule. Lung cancer. COMPARISON STUDY: Chest CT scans dated 07/27/2016 and 11/04/2012. TECHNIQUE: CT scan of the thorax was performed from the thoracic inlet to the upper abdomen. Images are reviewed in the axial, sagittal, and coronal planes. IV contrast was not administered for this examination as per the referring clinician. A dose lowering technique was utilized adhering to the principles of ALARA. CT DOSE: 264.19 mGycm FINDINGS: Thyroid: Imaged portions of the thyroid gland are normal in size and attenuation. Thoracic aorta: There is advanced atherosclerotic calcification of the thoracic aorta, which is normal in caliber and demonstrates standard 3-vessel arch anatomy. Heart: The heart is mildly enlarged and without pericardial effusion. The coronary arteries and mitral annulus are densely calcified. Lungs and pleural spaces: There are postoperative changes from right upper lobe resection. Pleural fluid is seen at the right lung base, likely a postoperative basis. Emphysema is identified. No airspace consolidation is seen typical for pneumonia. A 6 L groundglass nodule is seen at the right lung base on image #210. No left-sided pulmonary lesion is seen. Minimal secretions are noted within the trachea and mainstem bronchi. Mediastinum: There is no mediastinal lymphadenopathy. Corie: Not well assessed without IV contrast. Axillae: There is no axillary lymphadenopathy. Upper abdomen: There is a small to moderate hiatal hernia. No adrenal lesion is seen. Cholecystectomy clips are identified. A stent graft is partially visualized in the upper abdominal aorta. Skeletal structures: The skeletal structures are heterogeneously osteopenic. No lytic or blastic bony lesions are clearly seen. Degenerative change is noted throughout the thoracic spine and in the shoulders. IMPRESSION: 1. Cardiomegaly, emphysema, and postoperative change from right upper lobe resection. 2. A small volume of pleural fluid at the right lung base is likely on a postoperative basis. 3. A 6 mm groundglass nodule is again seen at the right lung base. This has not significant changed from 07/27/2016 but has enlarged dating back to 2012. This remains pathologically indeterminant and low-grade neoplasm is not excluded. 4. There is no airspace consolidation typical for pneumonia. 5. Additional findings as above. Electronically signed by: Luther Pardo M.D. 05/09/2017 1:52 PM Dictated Date/Time: 05/09/2017 1:46 PM
== END | disposition home or self-care (01) ==
LOC: C.CTS 13:19
PROVIDERS: ATTEND Surgery
DX: C34.11 Malignant neoplasm of upper lobe, right bronchus or lung (principal); R91.1 Solitary pulmonary nodule; I51.7 Cardiomegaly; J43.9 Emphysema, unspecified; Z90.2 Acquired absence of lung [part of]

== ENCOUNTER 2017-05-23 16:38 | Inpatient (IN) | payer OTHER ==
[~2017-05-23] VITALS: Ht 172.7 cm; Wt 72.7 kg
[~2017-05-23 16:38] MED LIST changes: +GABA-1219 PO; -GABA1CAP4 PO
[2017-05-23] MEDS ORDERED: ONDANSETRON 4MG OD TAB ONE (16:55)
--- NOTE | 2017-05-23 17:04 | EMERGENCY ROOM VISIT NOTE ---
History Report prepared by Pavan: Misbah Connor Under the Supervision of: Dr. Aaron Zhu M.D. First contact with patient: 16:50 Chief Complaint: VOMITING Stated Complaint: ILLNESS History of Present Illness The patient is an 87 year old male who presents to the Emergency Room with complaints of intermittent vomiting for the past few days. The patient states that he has been vomiting 3-4 times per day, and it does not happen after anything specific. He reports that the vomit is clear, though occasionally it looks black. He additionally states that he has a cough, congestion, and body aches, and he reports having chest pressure for the past week which is worse with eating. He notes that he has been feeling weak today and feeling worse. The patient states that his stool has been a dark brown/black for a couple of months, and he denies any hematochezia or burning with urination. The patient denies any sick contacts, and he did get a flu shot this year. The patient was on Protonix, though he was taken off of it, and a week ago he was seen at a public information specialist, and they stated that his chest pain could be due to the acid reflux, and they recommended him to take it again, though he has not started taking it. The patient has a history of colon cancer in 2011, so he has had chronic diarrhea since then. Additionally, the patient had lung cancer, and he had his right upper lobe removed in 2017. Source of History: patient Onset: a few days ago Position: other (global) Quality: other (vomiting) Timing: intermittent Associated Symptoms: + cough, + weakness, No hematochezia Note: Associated symptoms: Congestion, body aches, dark brown/black stools, and chest pressure Review of Systems See HPI for pertinent positives and negatives. A total of ten systems were reviewed and were otherwise negative. Past Medical & Surgical Medical Problems: (1) HAYLEE (acute kidney injury) (2) Benign essential hypertension (3) Carcinoma of colon (4) chest pain and AV block (5) chest pain and AV block (6) Diabetes mellitus type 2 (7) Dizziness (8) Gastroesophageal reflux disease (9) GERD (gastroesophageal reflux disease) (10) GI bleed (11) Glaucoma (12) Gout (13) Hyperlipidemia (14) Lower gastrointestinal hemorrhage (15) Lung cancer, lower lobe (16) Lung cancer, upper lobe (17) Peripheral vascular disease Social History Smoking Status: Current Some Day Smoker Alcohol Use: none Drug Use: none Marital Status: Housing Status: lives alone, lives with family Occupation Status: retired Current/Historical Medications Scheduled Allopurinol (Zyloprim), 1 TAB PO QAM Aspirin-Dipyridamole 25MG/200MG (Aggrenox 200MG/25MG), 1 CAP PO BID Atorvastatin (Lipitor), 10 MG PO QAM Cilostazol (Pletal), 100 MG PO BID Dutasteride (Dutasteride), 0.5 MG PO QAM Ergocalciferol (Drisdol), 50,000 PO MONTHLY Escitalopram Oxalate (Escitalopram Oxalate), 10 MG PO QAM Furosemide (Furosemide), 20 MG PO 2XWK Gabapentin (Gabapentin), 300 MG PO HS Magnesium Chloride (Mag64), 1 TAB PO BID Potassium Chloride Microencaps (Potassium Chloride Er), 20 MEQ PO QAM Scheduled PRN Triamcinolone Acet (Triamcinolone Acetonide), 1 APPLN TOP BID PRN for PRN Allergies Coded Allergies: Amoxicillin (Verified Allergy, Severe, HIVES; ANGIOEDEMA, 05/23/17) Lisinopril (Verified Allergy, Mild, HIVES, 05/23/17) Penicillins (Verified Allergy, Mild, HIVES, 05/23/17) Physical Exam Vital Signs Date Time Temp Pulse Resp B/P (MAP) Pulse Ox O2 Delivery O2 Flow Rate FiO2 05/23/17 18:31 152/72 05/23/17 18:08 79 14 99 Room Air 05/23/17 18:00 170/82 05/23/17 17:38 92 19 91 05/23/17 17:30 145/83 05/23/17 17:08 99 18 94 05/23/17 17:01 127/81 05/23/17 16:51 94 05/23/17 16:43 153/86 05/23/17 16:38 99 Room Air 05/23/17 16:38 36.5 108 20 153/86 100 Room Air Physical Exam GENERAL: Fatigued appearing, no distress HENT: Normocephalic, atraumatic. Dry mucous membranes, dry black emesis in the posterior oropharynx. EYES: Normal conjunctiva. Sclera non-icteric. NECK: Supple. No nuchal rigidity. FROM. No JVD. RESPIRATORY: Clear to auscultation. CARDIAC: Regular rate, normal rhythm. Extremities warm and well perfused. Pulses equal. ABDOMEN: Soft, non-distended. No tenderness to palpation. No rebound or guarding. No masses. RECTAL: Liquid melanotic stool. Guaiac positive. MUSCULOSKELETAL: Chest examination reveals no tenderness. The back is symmetrical on inspection without obvious abnormality. There is no CVA tenderness to palpation. No joint edema. LOWER EXTREMITIES: Calves are equal size bilaterally and non-tender. No edema. No discoloration. NEURO: Normal sensorium. No sensory or motor deficits noted. SKIN: No rash or jaundice noted. Medical Decision & Procedures ER Provider Diagnostic Interpretation: Radiology results as stated below per my review and radiologist interpretation: SINGLE VIEW CHEST CLINICAL HISTORY: Generalized abdominal pain. FINDINGS: An AP, portable, upright chest radiograph is compared to study dated 02/14/2017 and correlated with chest CT dated 05/09/2017. The examination is degraded by portable technique and patient rotation. The heart is enlarged and there is atherosclerotic calcification of the thoracic aorta. The pulmonary vasculature is noncongested. Emphysema and chronic interstitial thickening are similar to previous. The left lung appears clear. Again seen is postoperative change involving loss from right-sided pulmonary resection. Pleural fluid and consolidative changes again seen at the right lung base. No pneumothorax is seen. The skeletal structures are osteopenic. The bony thorax is grossly intact. IMPRESSION: 1. Cardiomegaly, emphysema, and postoperative change from right-sided pulmonary section are similar to previous. 2. Pleural fluid is again seen in the right lung base with right basilar opacities. This likely represents atelectasis. Correlate clinically for evidence of superimposed pneumonia. 3. The left lung appears clear. Electronically signed by: Luther Pardo M.D. 05/23/2017 5:39 PM Dictated Date/Time: 05/23/2017 5:[address] SCAN OF THE ABDOMEN AND PELVIS WITHOUT IV CONTRAST CLINICAL HISTORY: Generalized abdominal pain. Melanotic stool. COMPARISON STUDY: Abdominal CT dated 07/27/2016 and 06/21/2011. TECHNIQUE: CT scan of the abdomen and pelvis is performed from the lung bases to the proximal femora. Images are reviewed in the axial, sagittal, and coronal planes. IV contrast was not administered for this examination as per the referring clinician. Note that the examination was performed in suboptimal fashion without oral and IV contrast. A dose lowering technique was utilized adhering to the principles of ALARA. CT DOSE: 523.65 mGycm FINDINGS: Lung bases: The heart is normal in size and without pericardial effusion. The coronary arteries a mitral annulus are densely calcified. Emphysema is noted. There is a trace right pleural effusion with associated atelectasis a 6 mm groundglass nodule in the right lower lobe as seen on image #23. No airspace consolidation is identified typical for pneumonia. There is a small hiatal hernia. Mild wall thickening is suggested in the distal esophagus. Liver: The unenhanced liver is normal in size, contour, and attenuation. There is no intrahepatic biliary ductal dilatation. Gallbladder: Surgically absent noting clips in the gallbladder fossa. Spleen: Normal in size and attenuation. Pancreas: The unenhanced pancreas is moderately atrophic. Scattered parenchymal calcifications suggest chronic pancreatitis. Adrenal glands: Unremarkable. Kidneys: The unenhanced kidneys are atrophic and without hydronephrosis. There are no renal calculi identified. A 2.6 cm cyst is noted in the right kidney. Renovascular calcifications are observed. Abdominal vasculature: There is advanced atherosclerotic calcification of the abdominal aorta. An aortobiiliac stent graft is in place. 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 There is a femorofemoral bypass graft. Bowel: Pill fragments are noted in the distal stomach. Liquid stool is noted in the colon. There is no associated colonic wall thickening or pericolonic inflammation. There are scattered colonic diverticula without CT evidence of acute diverticulitis. Postoperative change is suggested in the right colon. No bowel obstruction is seen. The appendix is not visualized and reported surgically absent. Peritoneum: There is no intraperitoneal free air or abdominal ascites. There is a fat-containing left periumbilical hernia. A small fat-containing umbilical hernia is also identified. Lymphadenopathy: None. Pelvic viscera: The the prostate gland is enlarged and heterogeneous, measuring 6 cm in transverse diameter. The bladder is normal as visualized. Postoperative change is noted in the right groin. Skeletal structures: The skeletal structures are osteopenic. There is moderate lumbosacral spondylosis and scoliosis. Sclerotic change is identified in the sacroiliac joints. Advanced arthritic change is seen in the hips. No lytic or blastic lesions are seen. IMPRESSION: 1. Liquid stool is noted in the colon. Correlate clinically for evidence of a diarrheal illness. 2. There is a trace right pleural effusion. 3. Emphysema. 4. There is a 6 mm groundglass nodule at the right lung base. This is pathologically indeterminant but has increased in size dating back to 2011. Low-grade neoplasm is not excluded. 5. Advanced atherosclerotic disease with an aortobiiliac stent graft and femorofemoral bypass graft as above. 6. Additional findings as above. Electronically signed by: Luther Pardo M.D. 05/23/2017 6:59 PM Dictated Date/Time: 05/23/2017 6:49 PM Laboratory Results Test 05/23/17 16:31 05/23/17 17:50 RDW Standard Deviation 63.9 fL (36.4-46.3) RDW Coefficient of Variation 19.1 % (11.5-14.5) White Blood Count 17.98 K/uL (4.8-10.8) Red Blood Count 3.57 M/uL (4.7-6.1) Hemoglobin 10.9 g/dL (14.0-18.0) Hematocrit 32.6 % (42-52) Mean Corpuscular Volume 91.3 fL (80-100) Mean Corpuscular Hemoglobin 30.5 pg (25-34) Mean Corpuscular Hemoglobin Concent 33.4 g/dl (32-36) Platelet Count 278 K/uL (130-400) Mean Platelet Volume 10.4 fL (7.4-10.4) Neutrophils (%) (Auto) 92.7 % Lymphocytes (%) (Auto) 3.6 % Monocytes (%) (Auto) 3.2 % Eosinophils (%) (Auto) 0.0 % Basophils (%) (Auto) 0.1 % Neutrophils # (Auto) 16.66 K/uL (1.4-6.5) Lymphocytes # (Auto) 0.65 K/uL (1.2-3.4) Monocytes # (Auto) 0.58 K/uL (0.11-0.59) Eosinophils # (Auto) 0.00 K/uL (0-0.5) Basophils # (Auto) 0.01 K/uL (0-0.2) Immature Granulocyte % (Auto) 0.4 % Immature Granulocyte # (Auto) 0.08 K/uL (0.00-0.02) Anisocytosis PRESENT Prothrombin Time 10.5 SECONDS (9.0-12.0) Prothromb Time International Ratio 1.0 (0.9-1.1) Activated Partial Thromboplast Time 26.5 SECONDS (21.0-31.0) Partial Thromboplastin Ratio 1.0 Total Bilirubin 0.3 mg/dl (0.2-1) Direct Bilirubin 0.1 mg/dl (0-0.2) Aspartate Amino Transf (AST/SGOT) 14 U/L (15-37) Alanine Aminotransferase (ALT/SGPT) 29 U/L (12-78) Alkaline Phosphatase 127 U/L (45-117) Total Protein 7.1 gm/dl (6.4-8.2) Albumin 3.6 gm/dl (3.4-5.0) Lipase 494 U/L (73-393) Influenza Type A Antigen Neg for Influ A (NEG) Influenza Type B Antigen Neg for Influ B (NEG) Laboratory results reviewed by me Medications Administered Medications (Trade) Dose Ordered Sig/Hugo Route Start Time Stop Time Status Last Admin Dose Admin Sodium Chloride 1,000 ml @ 999 mls/hr Q1H1M STAT IV 05/23/17 17:09 05/23/17 18:09 DC 05/23/17 17:58 999 MLS/HR Pantoprazole Sodium 40 mg/ Syringe 10 ml @ 5 mls/min NOW ONCE IV 05/23/17 17:15 05/23/17 17:16 DC 05/23/17 17:59 5 MLS/MIN ECG Indication: vomiting Rate (beats per minute): 87 Rhythm: sinus rhythm Findings: LAFB, PAC, no acute ischemic change Comparison ECG Date: 02/14/17 Change: no significant change Change: Patient's electrocardiogram interpreted by me. ED Course 1650: The patient was evaluated in room A10. A complete history and physical exam was performed. 1709: Zofran 4mg IV, Sodium Chloride 1000 ml @ 999 mls/hr IV 1715: Pantoprazole Sodium 40mg 10ml @ 5mls/min IV 1829: Upon reexamination, the patient was doing well. I discussed the test results and treatment plan with him. The patient will be evaluated for further management. 185: I discussed the patient with Dr. Phyllis Knutson [facility] Hospitalist. He will evaluate the patient for further treatment. Medical Decision I reviewed the patient's past medical history, medications, and the nursing notes as described above. Differential diagnosis: Etiologies such as metabolic, infection, hypo/hyperglycemia, electrolyte abnormalities, cardiac sources, intracerebral event, toxicologic, neurologic, diverticulosis, AVM, coagulopathy, colitis, inflammatory bowel disease, malignancy, Davida-Santos tear, esophagitis, peptic ulcer disease, variceal bleed, gastritis, epistaxis, fissure, hemorrhoids, as well as others were entertained. The patient is an 87-year-old gentleman with a past medical history of h/o colon cancer s/p resection, Lung ca s/p right upper lobectomy, CAD, DM percents to emergency department with nausea vomiting and generalized weakness per hpi. I'll the patient is fatigued appearing but in no acute distress, afebrile, heart rate in the 90s but otherwise vital signs stable. On exam the patient has dry black emesis in his oropharynx rectal exam at demonstrating liquid melanotic stool that is guaiac positive. She reports that he has had black stool for the past month or so. Abdomen is soft nontender nondistended. Abs notable for hemoglobin 10.9 approximate 2 points down from March. BUN 70s. Patient given IV protonix and IVF with some improvement. Given findings c/w upper GI bleed was admit the patient for further management. CT noncontrast was ordered and pending to further clarify abdominal findings as well as questionable basilar infiltrates. WBC 17 however the patient denies any cough congestion or fevers. Given that the patient is hemodynamically stable with no evidence of gross hemorrhage will hold on transfusion at this time. He was discussed with [facility] hospitalist, who will admit the patient for further management. Medication Reconcilliation Current Medication List: was personally reviewed by me Blood Pressure Screening Patient's blood pressure: Elevated blood pressure Monitored by the hospitalist Consults Time Called: 1825 Consulting Physician: Dr. Phyllis CURTIS Hospitalist Returned Call: [phone] I discussed the patient with Dr. Phyllis CURTIS Hospitalist. He will evaluate the patient for further treatment. Impression Primary Impression: Upper GI bleed Scribe Attestation The scribe's documentation has been prepared under my direction and personally reviewed by me in its entirety. I confirm that the note above accurately reflects all work, treatment, procedures, and medical decision making performed by me. Departure Information Dispostion Being Evaluated By Hospitalist Referrals Dallas Jacobo M.D. (PCP) Patient Instructions My [facility]
[2017-05-23] MEDS ORDERED: SODIUM CHLORIDE 0.9% 1000ML 1,000 ML IV STA (17:09)
[2017-05-23] MEDS ORDERED: ONDANSETRON INJ 2 MG/ML 2 ML VIAL IV STA (17:09)
[2017-05-23] MEDS ORDERED: PANTOprazole INJ 40 MG in SYRINGE 0 ML IV ONE (17:15)
[2017-05-23 17:23] LABS: HEMATOCRIT 32.6 % (42-52); HEMOGLOBIN 10.9 g/dL (14.0-18.0); MEAN CELL VOLUME 91.3 fL (80-100); MEAN CORPUSCULAR HEMOGLOBIN 30.5 pg (25-34); MEAN CORPUSCULAR HGB CONC 33.4 g/dl (32-36); MEAN PLATELET VOLUME 10.4 fL (7.4-10.4); PLATELET COUNT 278 K/uL (130-400); RED CELL DISTRIBUTION WIDTH CV 19.1 % (11.5-14.5); RED CELL DISTRIBUTION WIDTH SD 63.9 fL (36.4-46.3); WHITE BLOOD COUNT 17.98 K/uL (4.8-10.8)
[2017-05-23 17:33] LABS: PTT PATIENT 26.5 SECONDS (21.0-31.0)
--- NOTE | 2017-05-23 17:40 | DIAGNOSTIC IMAGING REPORT ---
SINGLE VIEW CHEST CLINICAL HISTORY: Generalized abdominal pain. FINDINGS: An AP, portable, upright chest radiograph is compared to study dated 02/14/2017 and correlated with chest CT dated 05/09/2017. The examination is degraded by portable technique and patient rotation. The heart is enlarged and there is atherosclerotic calcification of the thoracic aorta. The pulmonary vasculature is noncongested. Emphysema and chronic interstitial thickening are similar to previous. The left lung appears clear. Again seen is postoperative change involving loss from right-sided pulmonary resection. Pleural fluid and consolidative changes again seen at the right lung base. No pneumothorax is seen. The skeletal structures are osteopenic. The bony thorax is grossly intact. IMPRESSION: 1. Cardiomegaly, emphysema, and postoperative change from right-sided pulmonary section are similar to previous. 2. Pleural fluid is again seen in the right lung base with right basilar opacities. This likely represents atelectasis. Correlate clinically for evidence of superimposed pneumonia. 3. The left lung appears clear. Electronically signed by: Luther Pardo M.D. 05/23/2017 5:39 PM Dictated Date/Time: 05/23/2017 5:37 PM
[2017-05-23 17:45] LABS: BASO % 0.1 %; BASO ABS # 0.01 K/uL (0-0.2); IG# 0.08 K/uL (0.00-0.02); LYMPH % 3.6 %; LYMPH ABS # 0.65 K/uL (1.2-3.4); MONO % 3.2 %; MONO ABS # 0.58 K/uL (0.11-0.59); NEUT % 92.7 %; NEUT ABS # 16.66 K/uL (1.4-6.5)
[2017-05-23 17:47] LABS: ALBUMIN 3.6 gm/dl (3.4-5.0); CALCIUM 9.1 mg/dl (8.5-10.1); CREATININE 2.98 mg/dl (0.60-1.40); POTASSIUM 3.5 mmol/L (3.5-5.1)
[2017-05-23 17:50] LABS: TOTAL PROTEIN 7.1 gm/dl (6.4-8.2)
[2017-05-23] MEDS ORDERED: ONDANSETRON INJ 2 MG/ML 2 ML VIAL IV PRN (19:00)
[2017-05-23] MEDS ORDERED: MoRPHine SULFATE 2 MG/ML CARP IV PRN (19:00)
[2017-05-23] MEDS ORDERED: ACETAMINOPHEN 325 MG TAB PO PRN (19:00)
[2017-05-23] MEDS ORDERED: PANTOprazole INJ 40 MG in DEXTROSE 5% 100ML IV SCH (19:00)
--- NOTE | 2017-05-23 19:01 | DIAGNOSTIC IMAGING REPORT ---
CT SCAN OF THE ABDOMEN AND PELVIS WITHOUT IV CONTRAST CLINICAL HISTORY: Generalized abdominal pain. Melanotic stool. COMPARISON STUDY: Abdominal CT dated 07/27/2016 and 06/21/2011. TECHNIQUE: CT scan of the abdomen and pelvis is performed from the lung bases to the proximal femora. Images are reviewed in the axial, sagittal, and coronal planes. IV contrast was not administered for this examination as per the referring clinician. Note that the examination was performed in suboptimal fashion without oral and IV contrast. A dose lowering technique was utilized adhering to the principles of ALARA. CT DOSE: 523.65 mGycm FINDINGS: Lung bases: The heart is normal in size and without pericardial effusion. The coronary arteries a mitral annulus are densely calcified. Emphysema is noted. There is a trace right pleural effusion with associated atelectasis a 6 mm groundglass nodule in the right lower lobe as seen on image #23. No airspace consolidation is identified typical for pneumonia. There is a small hiatal hernia. Mild wall thickening is suggested in the distal esophagus. Liver: The unenhanced liver is normal in size, contour, and attenuation. There is no intrahepatic biliary ductal dilatation. Gallbladder: Surgically absent noting clips in the gallbladder fossa. Spleen: Normal in size and attenuation. Pancreas: The unenhanced pancreas is moderately atrophic. Scattered parenchymal calcifications suggest chronic pancreatitis. Adrenal glands: Unremarkable. Kidneys: The unenhanced kidneys are atrophic and without hydronephrosis. There are no renal calculi identified. A 2.6 cm cyst is noted in the right kidney. Renovascular calcifications are observed. Abdominal vasculature: There is advanced atherosclerotic calcification of the abdominal aorta. An aortobiiliac stent graft is in place. 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 There is a femorofemoral bypass graft. Bowel: Pill fragments are noted in the distal stomach. Liquid stool is noted in the colon. There is no associated colonic wall thickening or pericolonic inflammation. There are scattered colonic diverticula without CT evidence of acute diverticulitis. Postoperative change is suggested in the right colon. No bowel obstruction is seen. The appendix is not visualized and reported surgically absent. Peritoneum: There is no intraperitoneal free air or abdominal ascites. There is a fat-containing left periumbilical hernia. A small fat-containing umbilical hernia is also identified. Lymphadenopathy: None. Pelvic viscera: The the prostate gland is enlarged and heterogeneous, measuring 6 cm in transverse diameter. The bladder is normal as visualized. Postoperative change is noted in the right groin. Skeletal structures: The skeletal structures are osteopenic. There is moderate lumbosacral spondylosis and scoliosis. Sclerotic change is identified in the sacroiliac joints. Advanced arthritic change is seen in the hips. No lytic or blastic lesions are seen. IMPRESSION: 1. Liquid stool is noted in the colon. Correlate clinically for evidence of a diarrheal illness. 2. There is a trace right pleural effusion. 3. Emphysema. 4. There is a 6 mm groundglass nodule at the right lung base. This is pathologically indeterminant but has increased in size dating back to 2011. Low-grade neoplasm is not excluded. 5. Advanced atherosclerotic disease with an aortobiiliac stent graft and femorofemoral bypass graft as above. 6. Additional findings as above. Electronically signed by: Luther Pardo M.D. 05/23/2017 6:59 PM Dictated Date/Time: 05/23/2017 6:49 PM
[2017-05-23] MEDS ORDERED: ERGO50002 PO (19:02)
[2017-05-23] MEDS ORDERED: SODIUM CHLORIDE 0.9% 1000ML 1,000 ML IV SCH (19:15)
[2017-05-23 19:26] LABS: INFLUENZA B ANTIGEN Neg for Influ B (NEG)
--- NOTE | 2017-05-23 19:31 | History and Physical ---
History & Physical Date & Time of Service: May 23, 2017 at 19:01 Chief Complaint: Illness Primary Care Physician: Dallas Jacobo M.D. History of Present Illness Source: patient, hospital records 87 y/o M Hx CAD, DM, CKD III, PAD, bradycardia, upper GI bleed due to esophagitis 07/30. Pt states he has had black colored stool intermittently for one month. He developed nausea and vomiting 3 days ago and describes dark or coffee-ground emesis today. He has had lower central chest/epigastric pain. He denies SOB, lightheadedness, palpitations. Labs are notable for mild anemia and worseing renal function with a high BUN. Past Medical/Surgical History 1) Colon CA - resected 2) Lung CA - L upper lobectomy 3) Upper GI bleed due to ulcerative esophagitis 07/30 4) CKD III 5) Neuropathy 6) CAD 7) DM II 8) PAD 9) Symptomatic bradycardia 10) 1st degree AV block 11) Gout Family History Noncontributory due to pt age Social History Smoking Status: Current Some Day Smoker Drug Use: none Marital Status: Housing status: lives alone Occupational Status: retired Immunizations History of Influenza Vaccine: Yes Influenza Vaccine Date: Feb 14, 2012 History of Tetanus Vaccine?: Yes Tetanus Immunization Date: Jun 30, 2012 History of Pneumococcal: Yes Pneumococcal Date: Jan 13, 2010 History of Hepatitis B Vaccine: No Multi-Drug Resistant Organisms History of MDRO: No Allergies Coded Allergies: Amoxicillin (Verified Allergy, Severe, HIVES; ANGIOEDEMA, 05/23/17) Lisinopril (Verified Allergy, Mild, HIVES, 05/23/17) Penicillins (Verified Allergy, Mild, HIVES, 05/23/17) Home Medications Scheduled Allopurinol (Zyloprim), 1 TAB PO QAM Aspirin-Dipyridamole 25MG/200MG (Aggrenox 200MG/25MG), 1 CAP PO BID Atorvastatin (Lipitor), 10 MG PO QAM Cilostazol (Pletal), 100 MG PO BID Dutasteride (Dutasteride), 0.5 MG PO QAM Ergocalciferol (Vitamin D 67870 Unit), 50,000 UNIT PO MONTHLY Escitalopram Oxalate (Escitalopram Oxalate), 10 MG PO QAM Furosemide (Furosemide), 20 MG PO 2XWK Gabapentin (Gabapentin), 300 MG PO HS Magnesium Chloride (Mag64), 1 TAB PO HS Pantoprazole (Protonix), 40 MG PO DAILY Potassium Chloride Microencaps (Potassium Chloride Er), 20 MEQ PO QAM Scheduled PRN Triamcinolone Acet (Triamcinolone Acetonide), 1 APPLN TOP BID PRN for PRN Review of Systems Constitutional: No fever, No chills, No sweats Eyes: No worsening of vision ENT: No hearing loss, No nasal symptoms Respiratory: No cough, No sputum, No wheezing Cardiovascular: + chest pain, No orthopnea, No PND Abdomen: + nausea, + vomiting, + GI bleeding, No pain Musculoskeletal: No joint pain Genitourinary - Male: No hematuria, No dysuria Neurologic: No memory loss, No paralysis, No weakness Psychiatric: No depression symptoms Endocrine: No fatigue Hematologic / Lymphatic: No abnormal bleeding/bruising Integumentary: No rash Allergic / Immunologic: No environmental allergies Physical Exam Vital Signs Date Time Temp Pulse Resp B/P (MAP) Pulse Ox O2 Delivery O2 Flow Rate FiO2 05/23/17 18:31 152/72 05/23/17 18:08 79 14 99 Room Air 05/23/17 18:00 170/82 05/23/17 17:38 92 19 91 05/23/17 17:30 145/83 05/23/17 17:08 99 18 94 05/23/17 17:01 127/81 05/23/17 16:51 94 05/23/17 16:43 153/86 05/23/17 16:38 99 Room Air 05/23/17 16:38 36.5 108 20 153/86 100 Room Air General Appearance: WD/WN, no apparent distress, + pertinent finding (Pleasant elderly male - no distress ) Head: normocephalic Eyes: normal inspection ENT: normal ENT inspection, pharynx normal Neck: supple, no JVD Respiratory/Chest: chest non-tender, lungs clear Cardiovascular: regular rate, rhythm, no edema Abdomen/GI: normal bowel sounds, non tender, soft, + fecal occult blood Back: normal inspection, no CVA tenderness Extremities/Musculoskelatal: normal inspection, no calf tenderness, normal capillary refill 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2 % Eosinophils (%) (Auto) 0.0 % Basophils (%) (Auto) 0.1 % Neutrophils # (Auto) 16.66 1.4-6.5 K/uL Lymphocytes # (Auto) 0.65 1.2-3.4 K/uL Monocytes # (Auto) 0.58 0.11-0.59 K/uL Eosinophils # (Auto) 0.00 0-0.5 K/uL Basophils # (Auto) 0.01 0-0.2 K/uL RDW Standard Deviation 63.9 36.4-46.3 fL RDW Coefficient of Variation 19.1 11.5-14.5 % Immature Granulocyte % (Auto) 0.4 % Immature Granulocyte # (Auto) 0.08 0.00-0.02 K/uL Anisocytosis PRESENT Prothrombin Time 10.5 9.0-12.0 SECONDS Prothromb Time International Ratio 1.0 0.9-1.1 Activated Partial Thromboplast Time 26.5 21.0-31.0 SECONDS Partial Thromboplastin Ratio 1.0 Sodium Level 138 136-145 mmol/L Potassium Level 3.5 3.5-5.1 mmol/L Chloride Level 110 98-107 mmol/L Carbon Dioxide Level 13 21-32 mmol/L Anion Gap 15.0 3-11 mmol/L Blood Urea Nitrogen 73 7-18 mg/dl Creatinine 2.98 0.60-1.40 mg/dl Est Creatinine Clear Calc Drug Dose 17.9 ml/min Estimated GFR () 21.0 Estimated GFR (Non- 18.1 BUN/Creatinine Ratio 24.5 10-20 Random Glucose 234 70-99 mg/dl Calcium Level 9.1 8.5-10.1 mg/dl Magnesium Level 3.0 1.8-2.4 mg/dl Total Bilirubin 0.3 0.2-1 mg/dl Direct Bilirubin 0.1 0-0.2 mg/dl Aspartate Amino Transf (AST/SGOT) 14 15-37 U/L Alanine Aminotransferase (ALT/SGPT) 29 12-78 U/L Alkaline Phosphatase 127 45-117 U/L Total Protein 7.1 6.4-8.2 gm/dl Albumin 3.6 3.4-5.0 gm/dl Lipase 494 73-393 U/L EKG Sinus, PACs, LAFB Impression Assessment and Plan 87 y/o M Hx CAD, DM, CKD III, PAD, bradycardia, upper GI bleed due to esophagitis 07/30. Pt states he has had black colored stool intermittently for one month. He developed nausea and vomiting 3 days ago and describes dark or coffee-ground emesis today. He has had lower central chest/epigastric pain. He denies SOB, lightheadedness, palpitations. Labs are notable for mild anemia and worsening renal function with a high BUN. 1) GI bleed - it is likely that he is experiencing recurrence of esophageal ulcers. He may have had irritation from bleeding which lead to nausea and vomiting as he has had black stool for an extended period. The pt will be kept NPO, we will trend his Hb, place on a Pantoprazole drip and consult GI. He will be monitored on telemetry and transfused as needed. 2) CAD - he did c/o CP although it appears to be more epigastric - we will repeat a trop PM - his oral meds including ASA are held 3) Acute on chronic RF - CKD III - BUN/creat are increased likely due to upper GI bleed - IVF provided - recheck BMP AM 4) DM - placed on a SS 5) Neuropathy - cont Franko Full code - SCDs Total time for this admit including review of labs, meds, imaging, records - discussion with pt and ER attending - 40 min Level of Care Telemetry Resuscitation Status FULL RESUSCITATION VTE Prophylaxis VTE Risk Assessment Done? Y/N: Yes Risk Level: Moderate Given or contraindicated: SCD's
[2017-05-23 20:40] VITALS: BP 172/85; PULSE 87; TEMP 36.7; O2SAT 99; BMI 22.5
[2017-05-23] MEDS ORDERED: DEXTROSE 50% 50 ML SYR IV PRN (21:00)
[2017-05-23] MEDS ORDERED: GLUCOSE 40% GEL 15 GM TUBE PO PRN (21:00)
[2017-05-23] MEDS ORDERED: GLUCAGON FOR INJ 1 MG VIAL SQ PRN (21:00)
[2017-05-23] MEDS ORDERED: GLUCOSE 10 TABS/TUBE PO PRN (21:00)
[2017-05-23] MEDS: GABAPENTIN 300 MG CAP PO SCH (21:36)
[2017-05-23] MEDS: INSULIN ASPART 100 UNITS/ML 3 ML PEN SC SCH (21:36)
[2017-05-23 23:30] VITALS: BP 151/69; PULSE 77; TEMP 36.5; O2SAT 100
[2017-05-24] MEDS: PANTOprazole INJ 40 MG in DEXTROSE 5% 100ML IV SCH ×4 (00:49→18:46)
[2017-05-24 03:29] VITALS: BP 129/65; PULSE 76; TEMP 36.5; O2SAT 99
[2017-05-24 04:36] LABS: CALCIUM 8.1 mg/dl (8.5-10.1); CREATININE 2.36 mg/dl (0.60-1.40)
[2017-05-24] MEDS ORDERED: POTASSIUM CHLORIDE 20 MEQ TABCR PO STA (05:18)
[2017-05-24] MEDS: INSULIN ASPART 100 UNITS/ML 3 ML PEN SC SCH ×4 (07:00→20:35)
[2017-05-24 07:13] VITALS: BP 124/58; PULSE 79; TEMP 36.2; O2SAT 100
[2017-05-24] MEDS: POTASSIUM CHLORIDE INJ 40 MEQ in SODIUM CHLORIDE 0.9% 1000ML 1,000 ML IV SCH (08:58)
[2017-05-24] MEDS: ATORVASTATIN 10 MG TAB PO SCH (09:32)
[2017-05-24] MEDS: ESCITALOPRAM OXALATE 10 MG TAB PO SCH (09:32)
[2017-05-24 12:02] VITALS: BP 145/62; PULSE 75; TEMP 36.8; O2SAT 99
[2017-05-24 12:49] LABS: HEMATOCRIT 24.7 % (42-52); HEMOGLOBIN 8.2 g/dL (14.0-18.0)
[2017-05-24] MEDS ORDERED: LIDOCAINE HCL 2% 2 ML VIAL (20MG/ML) ONE ×2 (14:45→15:02)
[2017-05-24] MEDS ORDERED: PROPOFOL IV EMULSION 10 MG/ML 20 ML VIAL IV ONE ×2 (14:45→15:02)
[2017-05-24] MEDS ORDERED: FENTANYL CITRATE INJ 50 MCG/1 ML 2 ML VIAL ONE (15:03)
--- NOTE | 2017-05-24 15:04 | Hospitalist Progress Note ---
Hospitalist Progress Note Date of Service May 24, 2017. (Adeline Gates CRNP) Subjective Pt evaluation today including: conversation w/ patient, physical exam, chart review, review of inpatient medication list Voiding: no voiding problems Mr. Mckeon has no complaints. He has not had any jose f bloody or tarry bowel movements or vomiting since admission. He has no abdominal pain or chest pain. ROS Constitutional: no chills, aches, sweats or fever Respiratory: no sob,cough, sputum, or wheezing Cardiac: no chest pain, palpitations, edema, orthopnea or lightheadedness GI: no abdominal pain, nausea, vomiting, diarrhea or constipation : no dysuria or hesitancy Extremities: no joint pain or weakness Skin: no rash All other systems reviewed and negative (Adeline Gates CRNP) Medications Medications Administered Medications (Trade) Dose Ordered Sig/Hugo Route Start Time Stop Time Status Last Admin Dose Admin Sodium Chloride 1,000 ml @ 999 mls/hr Q1H1M STAT IV 05/23/17 17:09 05/23/17 18:09 DC 05/23/17 17:58 999 MLS/HR Pantoprazole Sodium 40 mg/ Syringe 10 ml @ 5 mls/min NOW ONCE IV 05/23/17 17:15 05/23/17 17:16 DC 05/23/17 17:59 5 MLS/MIN Pantoprazole Sodium 40 mg/ Dextrose 100 ml @ 20 mls/hr Q5H IV 05/23/17 19:00 05/23/17 23:59 DC 05/23/17 20:18 20 MLS/HR Atorvastatin Calcium (Lipitor Tab) 10 mg QAM PO 05/24/17 09:00 06/23/17 08:59 05/24/17 09:32 10 MG Escitalopram Oxalate (Lexapro Tab) 10 mg QAM PO 05/24/17 09:00 06/23/17 08:59 05/24/17 09:32 10 MG Gabapentin (Neurontin Cap) 300 mg HS PO 05/23/17 21:00 06/22/17 20:59 05/23/17 21:36 300 MG Sodium Chloride 1,000 ml @ 80 mls/hr [id number] IV 05/23/17 19:15 05/24/17 08:02 DC 05/23/17 20:58 80 MLS/HR Pantoprazole Sodium 40 mg/ Dextrose 100 ml @ 20 mls/hr Q5H IV 05/24/17 01:30 06/23/17 01:29 05/24/17 12:08 20 MLS/HR Potassium Chloride (Klor-Con Tab) 60 meq NOW STAT PO 05/24/17 05:18 05/24/17 05:21 DC 05/24/17 05:51 60 MEQ Potassium Chloride 40 meq/ Sodium Chloride 1,020 ml @ 80 mls/hr [id number] IV 05/24/17 08:30 05/25/17 03:14 05/24/17 08:58 80 MLS/HR (Adeline Gates, COBY) Objective Vital Signs Date Time Temp Pulse Resp B/P (MAP) Pulse Ox O2 Delivery O2 Flow Rate FiO2 05/24/17 14:15 36.1 79 18 176/83 (114) 100 Room Air 05/24/17 12:03 Room Air 05/24/17 12:02 36.8 75 20 145/62 (89) 99 Room Air Ambu-Bag 05/24/17 08:02 Room Air 05/24/17 07:13 36.2 79 15 124/58 (80) 100 Room Air 05/24/17 04:04 Room Air 05/24/17 03:29 36.5 76 20 129/65 (86) 99 Room Air 05/24/17 00:30 Room Air 05/23/17 23:30 36.5 77 20 151/69 (96) 100 Room Air 05/23/17 20:40 36.7 87 22 172/85 99 Room Air 05/23/17 20:27 82 18 165/73 100 05/23/17 20:19 82 18 165/73 100 Room Air 05/23/17 20:00 180/84 05/23/17 19:59 83 17 100 Room Air 05/23/17 19:31 173/71 05/23/17 19:29 83 18 100 05/23/17 19:24 84 18 153/76 100 Room Air 05/23/17 18:31 152/72 05/23/17 18:08 79 14 99 Room Air 05/23/17 18:00 170/82 05/23/17 17:38 92 19 91 05/23/17 17:30 145/83 05/23/17 17:08 99 18 94 05/23/17 17:01 127/81 05/23/17 16:51 94 05/23/17 16:43 153/86 05/23/17 16:38 99 Room Air 05/23/17 16:38 36.5 108 20 153/86 100 Room Air (Adeline Gates CRNP) Physical Exam Notes: General: no distress Eyes: normal inspection, PERLL Respiratory: chest non tender, clear to auscultation, normal breath sounds, no respiratory distress, no accessory muscle use Cardiac: regular rate and rhythm, no rub or gallop, no murmur, no edema, no jvd GI/: active bowel sounds, no abd pain or tenderness, soft, non distended Extremities: normal range of motion, normal strength, non tender Neuro/Psych: alert and oriented x 3, normal mood and affect Skin: normal color, dry (Adeline Gates CRNP) Laboratory Results Last 24 Hours Test 05/23/17 16:31 05/23/17 17:50 05/23/17 21:07 05/23/17 22:21 White Blood Count 17.98 K/uL Red Blood Count 3.57 M/uL Hemoglobin 10.9 g/dL 9.1 g/dL Hematocrit 32.6 % Mean Corpuscular Volume 91.3 fL Mean Corpuscular Hemoglobin 30.5 pg Mean Corpuscular Hemoglobin Concent 33.4 g/dl Platelet Count 278 K/uL Mean Platelet Volume 10.4 fL Neutrophils (%) (Auto) 92.7 % Lymphocytes (%) (Auto) 3.6 % Monocytes (%) (Auto) 3.2 % Eosinophils (%) (Auto) 0.0 % Basophils (%) (Auto) 0.1 % Neutrophils # (Auto) 16.66 K/uL Lymphocytes # (Auto) 0.65 K/uL Monocytes # (Auto) 0.58 K/uL Eosinophils # (Auto) 0.00 K/uL Basophils # (Auto) 0.01 K/uL RDW Standard Deviation 63.9 fL RDW Coefficient of Variation 19.1 % Immature Granulocyte % (Auto) 0.4 % Immature Granulocyte # (Auto) 0.08 K/uL Anisocytosis PRESENT Prothrombin Time 10.5 SECONDS Prothromb Time International Ratio 1.0 Activated Partial Thromboplast Time 26.5 SECONDS Partial Thromboplastin Ratio 1.0 Sodium Level 138 mmol/L Potassium Level 3.5 mmol/L Chloride Level 110 mmol/L Carbon Dioxide Level 13 mmol/L Anion Gap 15.0 mmol/L Blood Urea Nitrogen 73 mg/dl Creatinine 2.98 mg/dl Est Creatinine Clear Calc Drug Dose 17.9 ml/min Estimated GFR () 21.0 Estimated GFR (Non- 18.1 BUN/Creatinine Ratio 24.5 Random Glucose 234 mg/dl Calcium Level 9.1 mg/dl Magnesium Level 3.0 mg/dl Total Bilirubin 0.3 mg/dl Direct Bilirubin 0.1 mg/dl Aspartate Amino Transf (AST/SGOT) 14 U/L Alanine Aminotransferase (ALT/SGPT) 29 U/L Alkaline Phosphatase 127 U/L Total Protein 7.1 gm/dl Albumin 3.6 gm/dl Lipase 494 U/L Influenza Type A Antigen Neg for Influ A Influenza Type B Antigen Neg for Influ B Bedside Glucose 139 mg/dl Troponin I 0.020 ng/ml Test 05/24/17 00:20 05/24/17 04:03 05/24/17 08:02 05/24/17 11:59 Urine Color YELLOW Urine Appearance CLEAR Urine pH 5.0 Urine Specific [place] 1.019 Urine Protein 1+ Urine Glucose (UA) NEG Urine Ketones NEG Urine Occult Blood TRACE Urine Nitrite NEG Urine Bilirubin NEG Urine Urobilinogen NEG Urine Leukocyte Esterase NEG Urine WBC (Auto) 1-5 /hpf Urine RBC (Auto) 0-4 /hpf Urine Hyaline Casts (Auto) 1-5 /lpf Urine Epithelial Cells (Auto) 10-20 /lpf Urine Bacteria (Auto) NEG Hemoglobin 8.8 g/dL 8.5 g/dL Sodium Level 141 mmol/L Potassium Level 3.0 mmol/L Chloride Level 116 mmol/L Carbon Dioxide Level 16 mmol/L Anion Gap 9.0 mmol/L Blood Urea Nitrogen 66 mg/dl Creatinine 2.36 mg/dl Est Creatinine Clear Calc Drug Dose 21.3 ml/min Estimated GFR () 27.8 Estimated GFR (Non- 24.0 BUN/Creatinine Ratio 28.0 Random Glucose 99 mg/dl Calcium Level 8.1 mg/dl Magnesium Level 2.8 mg/dl Bedside Glucose 102 mg/dl Test 05/24/17 12:41 Hemoglobin 8.2 g/dL Hematocrit 24.7 % (Adeline Gates CRNP) Assessment and Plan Mr. Hill is an 87 year old male here for GI Bleed GI bleed - possible recurrence of esophageal ulcers. - protonix gtt, serial h&h - consult GI - EGD this afternoon CAD - trops negative x 1 - no further chest pain - hold ASA Acute on chronic RF - CKD III - BUN/creat are increased likely due to upper GI bleed - continue IVF - Creat trending down, prp am DM - SS, bsg ac and hs Neuropathy - cont Franko (Adeline Gates CRNP) [employer]OCK [employer]IT ADJUSTER Physician Supervision Note: I interviewed and examined the patient. Discussed with Adeline Gates G[employer]ST[employer]IT ADJUSTER and agree with findings and plan as documented in the note. Any exceptions or clarifications are listed here: None Patient is admitted with melena in the greater than 2 g drop in hemoglobin. Patient has a history of esophageal ulcers and also colon cancer. Patient had an endoscopy today without any source of active bleeding but esophagitis was seen. There is no discussion and software development leader note about pursuing a possible colonoscopy. Patient was visited with his family his vitals are stable he feels well postoperatively we are going to begin clear liquid diet We'll continue continue proton pump inhibitor watching his hemoglobin for further drops in discussion with GI medicine about possibly prepping him for colonoscopy next week inpatient versus outpatient Documented By: Tyrone Gu (Tyrone Gu M.D.)
[2017-05-24] MEDS ORDERED: SODIUM CHLORIDE 0.9% 500ML 500 ML IV ONE ×2 (15:13)
--- NOTE | 2017-05-24 15:17 | History & Physical Bridge Note ---
H&P Re-Evaluation Bridge Note: I have examined the patient, reviewed the History & Physical and in the interval since the performance of the History & Physical I have noted the following changes of clinical significance: coffee grouind emesis; anemia; prior hx esophagitis' no NSAID use reported; no anticoagulants; no abd pain AAOx3 Nls1s2 lungs CTA Abd soft NT/ND + BS - [facility] [place] EGD; consent obtained mary No changes noted
--- NOTE | 2017-05-24 15:43 | GI REPORT ---
Procedure Date: 05/24/2017 3:11 PM Procedure: Upper GI endoscopy Indications: Hematemesis Medicines: Propofol per Anesthesia Complications: No immediate complications. Estimated blood loss: Minimal. Estimated Blood Loss: Estimated blood loss was minimal. Procedure: Pre-Anesthesia Assessment: - Prior to the procedure, a History and Physical was performed, and patient medications and allergies were reviewed. The patient's tolerance of previous anesthesia was also reviewed. The risks and benefits of the procedure and the sedation options and risks were discussed with the patient. All questions were answered, and informed consent was obtained. Prior Anticoagulants: The patient has taken no previous anticoagulant or antiplatelet agents. ASA Grade Assessment: III - A patient with severe systemic disease. After reviewing the risks and benefits, the patient was deemed in satisfactory condition to undergo the procedure. After obtaining informed consent, the endoscope was passed under direct vision. Throughout the procedure, the patient's blood pressure, pulse, and oxygen saturations were monitored continuously. The Scope was introduced through the mouth, and advanced to the second part of duodenum. The upper GI endoscopy was accomplished without difficulty. The patient tolerated the procedure well. Findings: LA Grade D (one or more mucosal breaks involving at least 75% of esophageal circumference) esophagitis with no bleeding was found 27 to 37 cm from the incisors. Biopsies were taken with a cold forceps for histology. Estimated blood loss was minimal. Verification of patient identification for the specimen was done by the physician and turfgrass technician using the patient's name and medical record number. A medium-sized hiatal hernia was found. The proximal extent of the gastric folds (end of tubular esophagus) was 37 cm from the incisors. The hiatal narrowing was 40 cm from the incisors. The Z-line was 37 cm from the incisors. The entire examined stomach was normal. The examined duodenum was normal. Retained gastric contents are not identified on this exam. The cardia and gastric fundus were normal on retroflexion. Impression: - LA Grade D reflux esophagitis. Biopsied. - Medium-sized hiatal hernia. - Normal stomach. - Normal examined duodenum. Recommendation: - Discharge patient to home (ambulatory). - Resume regular diet. - Continue present medications. - Await pathology results. - Use a proton pump inhibitor PO BID for 4 months. - Repeat upper endoscopy in 12 weeks to check healing. MD George Salter MD 05/24/2017 3:42:38 PM This report has been signed electronically. Note Initiated On: 05/24/2017 3:11 PM I attest to the content of the Intraoperative Record and orders documented therein, exceptions below
[2017-05-24] MEDS ORDERED: EpHEDrine SULFATE 50MG/5ML SYR ONE (15:50)
--- NOTE | 2017-05-24 15:50 | Anesthesiology Progress Note ---
Anesthesia Post Op Note Date & Time May 24, 2017 at 15:50 Vital Signs Pain Intensity: 0.0 Vital Signs Past 12 Hours Date Time Temp Pulse Resp B/P (MAP) Pulse Ox O2 Delivery O2 Flow Rate FiO2 05/24/17 14:15 36.1 79 18 176/83 (114) 100 Room Air 05/24/17 12:03 Room Air 05/24/17 12:02 36.8 75 20 145/62 (89) 99 Room Air Ambu-Bag 05/24/17 08:02 Room Air 05/24/17 07:13 36.2 79 15 124/58 (80) 100 Room Air 05/24/17 04:04 Room Air Notes Mental Status: alert / awake / arousable, participated in evaluation Pt Amnestic to Procedure: Yes Nausea / Vomiting: adequately controlled Pain: adequately controlled Airway Patency, RR, SpO2: stable & adequate BP & HR: stable & adequate Hydration State: stable & adequate Anesthetic Complications: no major complications apparent
[2017-05-24 16:32] VITALS: Ht 172.7 cm; Wt 72.7 kg
[2017-05-24 16:50] VITALS: BP 138/79; PULSE 73; TEMP 36.3; O2SAT 100
[2017-05-24 18:17] LABS: HEMATOCRIT 24.8 % (42-52)
--- NOTE | 2017-05-24 19:38 | GASTROINTESTINAL CONSULTATION ---
DATE OF CONSULTATION: 05/24/2017 REQUESTING PHYSICIAN: Derek Ferguson MD. CHIEF COMPLAINT: Coffee-ground emesis. HISTORY OF PRESENT ILLNESS: Mr. Mckeon is an 87-year-old white male known to me from prior hospitalization and endoscopic evaluation. In 07/2016, the patient had a similar presentation and was found to have extensive esophagitis throughout most of the esophagus along with a hiatal hernia. Followup in 11/2016 showed essentially all areas inflamed were healed on medication. The patient was feeling well overall, although has had a recent lung lobectomy for cancer. There is no chest pain, shortness of breath or palpitations. The patient denies dysphagia or odynophagia and reports no recent chemotherapy or radiation therapy. He is chronically anemic. The patient denied any melena or bright red blood per rectum and did not report any abdominal pain when these events occurred. PAST MEDICAL HISTORY: Colon cancer with resection, lung cancer, left upper lobectomy, recently upper GI bleed as described above, neuropathy, coronary artery disease, type 2 diabetes, peripheral vascular disease, first-degree AV block and gout. He denies use of NSAIDs. ALLERGIES: INCLUDE AMOXICILLIN, LISINOPRIL AND PENICILLINS. HOME MEDICATIONS: Include allopurinol, atorvastatin, Pletal, dutasteride, ergocalciferol, escitalopram, furosemide, gabapentin, magnesium, pantoprazole 40 mg daily for which he reports compliance. FAMILY HISTORY: Noncontributory. SOCIAL HISTORY: The patient denies significant tobacco use. Is , lives alone and is retired. He does not report alcoholic beverage consumption. REVIEW OF SYSTEMS: Otherwise noncontributory based on 13-point exam except for mentioned above. There is no fever, shaking chills, hematuria, dysuria, significant joint aches. PHYSICAL EXAMINATION: VITAL SIGNS: On admission, afebrile at 36.5, blood pressure was 153/86, respirations 20, heart rate 108, was 100% on room air. GENERAL: The patient currently is awake. HEENT: Conjunctivae slightly pale. Sclerae are anicteric. Head is normocephalic, atraumatic. NECK: There is no cervical or supraclavicular adenopathy. I did not appreciate thyromegaly. The neck shows normal range of motion. HEART: Normal S1, S2. LUNGS: Clear to auscultation without rales, rhonchi or wheezes. ABDOMEN: Soft, nontender, nondistended. Evidence of prior abdominal wall hernias from previous surgeries which include cholecystectomy, appendectomy and colorectal cancer resection. There are no abdominal bruits or masses. I do not appreciate ascites or shifting dullness. There is no rebound or guarding. EXTREMITIES: Show normal range of motion. There are no focal neurologic defects. Without clubbing, cyanosis or edema. SKIN: Warm, dry and intact. RECTAL: Deferred at this time. LABORATORY STUDIES: On admission, white count 17.9, hemoglobin 10.9, MCV 91, platelets 278,000. INR 1.0. Potassium 3.5, sodium 138, BUN and creatinine are elevated at 73 and 2.9. Blood sugar is elevated 234. Magnesium 3.0. Total bilirubin 0.3, direct 0.1. AST 14, ALT 29, alkaline phosphatase 127. Total protein 7.1, lipase 494 (slightly elevated), albumin 3.6. The patient's imaging on admission included a CT scan of the abdomen and pelvis yesterday which revealed liquid stool throughout the colon. There is trace right pleural effusion, evidence of emphysema. There are ground-glass nodules at the right base that have increased in size compared to 2012. PVD is noted with aortobiiliac stent graft placement. There is no evidence of adenopathy. The adrenals are normal. The CT is atrophic but otherwise normal except for some subtle suggestions of chronic pancreatitis by way of scattered parenchymal calcifications. Gallbladder is surgically absent. Spleen is normal in size. The liver has no evidence of ductal dilatation and otherwise normal appearance by contour, attenuation and size. IMPRESSION AND PLAN: The patient with symptoms of coffee-ground emesis for the past few days with mild anemia. The patient does take Protonix 40 mg daily. Less than 1 year ago, the patient had similar symptoms and was found to have extensive esophagitis. Subsequent followup 4 months later showed essentially all healing with persistence of the hiatal hernia. The differential diagnosis includes peptic ulcer disease, gastritis, esophagitis, esophageal ulcer (although there is no obvious odynophagia or dysphagia per the patient). We will plan for upper endoscopy at this time to assess for the source of bleeding. Keep the patient n.p.o. Continue PPI therapy. Follow hemoglobin serially. All questions answered, the patient is agreeable to proceed with upper endoscopy. Would continue PPI which includes pantoprazole drip. His other medications currently include atorvastatin, Lexapro, potassium supplements, pantoprazole IV drip, gabapentin, insulin and morphine as needed for pain. All questions answered.
[2017-05-24 19:52] VITALS: BP 147/68; PULSE 70; TEMP 36.3; O2SAT 100
[2017-05-24] MEDS: GABAPENTIN 300 MG CAP PO SCH (20:26)
[2017-05-24 23:37] VITALS: BP 136/69; PULSE 65; TEMP 36.5; O2SAT 95
[2017-05-25] VITALS (9 sets, daily range): BP systolic 110–140; BP diastolic 53–80; PULSE 59–91; TEMP 36.1–36.4; O2SAT 92–100
[2017-05-25] MEDS: POTASSIUM CHLORIDE INJ 40 MEQ in SODIUM CHLORIDE 0.9% 1000ML 1,000 ML IV SCH (01:47)
[2017-05-25] MEDS: PANTOprazole INJ 40 MG in DEXTROSE 5% 100ML IV SCH ×5 (01:47→20:40)
[2017-05-25] MEDS: INSULIN ASPART 100 UNITS/ML 3 ML PEN SC SCH ×4 (06:30→20:40)
[2017-05-25] MEDS: ESCITALOPRAM OXALATE 10 MG TAB PO SCH (08:31)
[2017-05-25] MEDS: ATORVASTATIN 10 MG TAB PO SCH (08:31)
[2017-05-25 09:42] LABS: HEMATOCRIT 23.1 % (42-52); HEMOGLOBIN 7.3 g/dL (14.0-18.0); MEAN CELL VOLUME 94.7 fL (80-100); MEAN CORPUSCULAR HEMOGLOBIN 29.9 pg (25-34); MEAN CORPUSCULAR HGB CONC 31.6 g/dl (32-36); MEAN PLATELET VOLUME 9.6 fL (7.4-10.4); PLATELET COUNT 166 K/uL (130-400); RED CELL DISTRIBUTION WIDTH CV 19.5 % (11.5-14.5); RED CELL DISTRIBUTION WIDTH SD 68.4 fL (36.4-46.3)
[2017-05-25 10:10] LABS: CALCIUM 7.8 mg/dl (8.5-10.1); CREATININE 1.85 mg/dl (0.60-1.40); POTASSIUM 3.5 mmol/L (3.5-5.1)
--- NOTE | 2017-05-25 12:14 | Gastroenterology Progress Note ---
Progress Note Date of Service: May 25, 2017 Subjective Pt evaluation today including: conversation w/ patient, physical exam, chart review, lab review, review of studies, review of inpatient medication list CC f/u melena HPI Pt with some odynophagia but no abd pain. Contuing with black stool last one recorded at 0700 this am by nursing. Hgb moved from 8 to 7.3. Review of Systems Respiratory: No shortness of breath Cardiac: No chest pain Medications Current Inpatient Medications Medications (Trade) Dose Ordered Sig/Hugo Route Start Time Stop Time Status Last Admin Dose Admin Acetaminophen (Tylenol Tab) 650 mg Q4H PRN PO 05/23/17 19:00 06/22/17 18:59 Ondansetron HCl (Zofran Inj) 4 mg Q6H PRN IV 05/23/17 19:00 06/22/17 18:59 Morphine Sulfate (MoRPHine SULFATE INJ) 2 mg Q30M PRN IV 05/23/17 19:00 06/06/17 18:59 Atorvastatin Calcium (Lipitor Tab) 10 mg QAM PO 05/24/17 09:00 06/23/17 08:59 05/25/17 08:31 10 MG Escitalopram Oxalate (Lexapro Tab) 10 mg QAM PO 05/24/17 09:00 06/23/17 08:59 05/25/17 08:31 10 MG Gabapentin (Neurontin Cap) 300 mg HS PO 05/23/17 21:00 06/22/17 20:59 05/24/17 20:26 300 MG Miscellaneous Information (Order Awaiting Action) 1 ea QS N/A 05/24/17 00:00 06/23/17 00:00 Insulin Aspart (novoLOG ASPART) SLIDING SCALE G... ACHS SC 05/23/17 21:00 06/22/17 20:59 05/24/17 20:35 1 UNITS Pantoprazole Sodium 40 mg/ Dextrose 100 ml @ 20 mls/hr Q5H IV 05/24/17 01:30 06/23/17 01:29 05/25/17 10:44 20 MLS/HR Glucose (Glucose 40% Gel) 15-30 GRAMS 15 GRAMS... UD PRN PO 05/23/17 21:00 06/22/17 20:59 Glucose (Glucose Chew Tab) 4-8 Tablets 4 Tabl... UD PRN PO 05/23/17 21:00 06/22/17 20:59 Dextrose (Dextrose 50% 50ML Syringe) 25-50ML OF 50% DW IV FOR... UD PRN IV 05/23/17 21:00 06/22/17 20:59 Glucagon (Glucagon Inj) 1 mg UD PRN SQ 05/23/17 21:00 06/22/17 20:59 Sodium Chloride 500 ml @ 15 mls/hr Q24H ONCE IV 05/24/17 15:13 05/25/17 15:12 Objective Vital Signs Date Time Temp Pulse Resp B/P (MAP) Pulse Ox O2 Delivery O2 Flow Rate FiO2 05/25/17 08:00 92 Room Air 05/25/17 07:53 36.4 91 16 128/80 (96) 92 05/25/17 04:00 Room Air 05/25/17 03:51 36.4 66 19 110/60 (77) 100 Room Air 05/25/17 00:00 Room Air 05/24/17 23:37 36.5 65 19 136/69 (91) 95 Room Air 05/24/17 20:00 Room Air 05/24/17 19:52 36.3 70 18 147/68 (94) 100 Room Air 05/24/17 16:50 36.3 73 20 138/79 (98) 100 Room Air 05/24/17 16:19 71 18 145/66 (92) 97 Room Air 05/24/17 16:02 76 18 135/80 (98) 97 Room Air 05/24/17 15:48 79 18 121/60 (80) 95 Room Air 05/24/17 14:15 36.1 79 18 176/83 (114) 100 Room Air Physical Exam General Appearance: WD/WN, no apparent distress Respiratory/Chest: normal breath sounds, no respiratory distress Cardiovascular: regular rate, rhythm, no murmur Abdomen: normal bowel sounds, non tender, soft, no organomegaly Neurologic/Psych: alert, normal mood/affect, oriented x 3 Skin: normal color Laboratory Results Last 24 Hours Test 05/24/17 12:41 05/24/17 16:54 05/24/17 18:06 05/24/17 20:26 Hemoglobin 8.2 g/dL 8.0 g/dL Hematocrit 24.7 % 24.8 % Bedside Glucose 101 mg/dl Test 05/25/17 07:31 05/25/17 08:57 Bedside Glucose 94 mg/dl White Blood Count 8.30 K/uL Red Blood Count 2.44 M/uL Hemoglobin 7.3 g/dL Hematocrit 23.1 % Mean Corpuscular Volume 94.7 fL Mean Corpuscular Hemoglobin 29.9 pg Mean Corpuscular Hemoglobin Concent 31.6 g/dl RDW Standard Deviation 68.4 fL RDW Coefficient of Variation 19.5 % Platelet Count 166 K/uL Mean Platelet Volume 9.6 fL Sodium Level 139 mmol/L Potassium Level 3.5 mmol/L Chloride Level 116 mmol/L Carbon Dioxide Level 15 mmol/L Anion Gap 8.0 mmol/L Blood Urea Nitrogen 34 mg/dl Creatinine 1.85 mg/dl Est Creatinine Clear Calc Drug Dose 27.7 ml/min Estimated GFR () 37.4 Estimated GFR (Non- 32.3 BUN/Creatinine Ratio 18.2 Random Glucose 133 mg/dl Calcium Level 7.8 mg/dl Assessment and Plan acute blood loss anemia--follow H and H and transuse prn melena--because ongoing and Hgb stopped and no active bleeding site identified on EGD plan colonoscopy saturday with 2 day prep. Proc and risks explained to patient which include but not limited to med reaction, bleeding, perforation, aspiration, and missed lesions. esophagitis--continue PPI odynophagia--secondary to esophagitis.
[2017-05-25] MEDS: LAVAGE SOLUTION 4000ML PO SCH (14:38)
[2017-05-25 15:16] LABS: HEMATOCRIT 22.8 % (42-52); HEMOGLOBIN 7.3 g/dL (14.0-18.0)
--- NOTE | 2017-05-25 15:37 | Progress Note ---
Subjective Date of Service: May 25, 2017. Subjective this has only mild dyspepsia, he has mild continued melena, no lower abdominal pain but did have significant drop in hgb since admission he has agreed to blood if needed, and possible colonoscopy Problem List Medical Problems: (1) Acute chest pain Status: Acute (2) Acute kidney injury Status: Acute (3) Dehydration Status: Acute (4) Elevated serum creatinine Status: Acute (5) Head trauma Status: Acute (6) Hypomagnesemia Status: Acute (7) Near syncope Status: Acute (8) Orthostatic hypotension Status: Acute (9) Precordial chest pain Status: Acute (10) Scalp laceration Status: Acute (11) Upper GI bleed Status: Acute Review of Systems Constitutional: No fever, No chills, No weakness Respiratory: No cough, No wheezing Cardiac: No chest pain, No edema Abdomen: + pain, No nausea, No vomiting, No diarrhea Musculoskeletal: No joint pain, No muscle pain Male : No dysuria, No urinary frequency Psychiatric: No depression symptoms, No anhedonism Objective Vital Signs Date Time Temp Pulse Resp B/P (MAP) Pulse Ox O2 Delivery O2 Flow Rate FiO2 05/25/17 12:11 36.4 59 18 134/66 (88) 94 Room Air 05/25/17 12:00 94 Room Air 05/25/17 08:00 92 Room Air 05/25/17 07:53 36.4 91 16 128/80 (96) 92 05/25/17 04:00 Room Air 05/25/17 03:51 36.4 66 19 110/60 (77) 100 Room Air 05/25/17 00:00 Room Air 05/24/17 23:37 36.5 65 19 136/69 (91) 95 Room Air 05/24/17 20:00 Room Air 05/24/17 19:52 36.3 70 18 147/68 (94) 100 Room Air 05/24/17 16:50 36.3 73 20 138/79 (98) 100 Room Air 05/24/17 16:19 71 18 145/66 (92) 97 Room Air 05/24/17 16:02 76 18 135/80 (98) 97 Room Air 05/24/17 15:48 79 18 121/60 (80) 95 Room Air Physical Exam General Appearance: WD/WN, + mild distress Eyes: normal inspection, sclerae normal Neck: supple, no JVD Respiratory/Chest: chest non-tender, lungs clear, normal breath sounds Cardiovascular: regular rate, rhythm, no murmur Abdomen: normal bowel sounds, non tender, soft Extremities: no pedal edema, no calf tenderness Neurologic/Psychiatric: alert, oriented x 3 Laboratory Results Last 24 Hours Test 05/24/17 16:54 05/24/17 18:06 05/24/17 20:26 05/25/17 07:31 Bedside Glucose 101 mg/dl 94 mg/dl Hemoglobin 8.0 g/dL Hematocrit 24.8 % Test 05/25/17 08:57 05/25/17 11:53 05/25/17 15:00 White Blood Count 8.30 K/uL Red Blood Count 2.44 M/uL Hemoglobin 7.3 g/dL 7.3 g/dL Hematocrit 23.1 % 22.8 % Mean Corpuscular Volume 94.7 fL Mean Corpuscular Hemoglobin 29.9 pg Mean Corpuscular Hemoglobin Concent 31.6 g/dl RDW Standard Deviation 68.4 fL RDW Coefficient of Variation 19.5 % Platelet Count 166 K/uL Mean Platelet Volume 9.6 fL Sodium Level 139 mmol/L Potassium Level 3.5 mmol/L Chloride Level 116 mmol/L Carbon Dioxide Level 15 mmol/L Anion Gap 8.0 mmol/L Blood Urea Nitrogen 34 mg/dl Creatinine 1.85 mg/dl Est Creatinine Clear Calc Drug Dose 27.7 ml/min Estimated GFR () 37.4 Estimated GFR (Non- 32.3 BUN/Creatinine Ratio 18.2 Random Glucose 133 mg/dl Calcium Level 7.8 mg/dl Bedside Glucose 86 mg/dl Assessment and Plan Mr. Hill is an 87 year old male with melena and history of esophageal ulcers , has developed profound acute blood loss anemia, but EGD showed erosive esophagitis without active source of bleeding, hgb continues to fall but maybe re equilibration from ivf, considering colonoscopy next week given history of colon cancer GI bleed, erosive esophagitis, - protonix gtt, - consult GI - EGD complete, consider colonoscopy Acute blood loss anemia, hgb holding >7 if lower will transfuse CAD no chest pain even with anemia, - trops negative - continue to hold ASA Acute on chronic RF - CKD III - BUN/creat are increased likely due to GI bleed, have improved with hydration maybe due to poor po intake prior to admission - continue IVF DM - SS, bsg ac and hs, monitor for toxic affect of hypoglycemia Neuropathy - cont Gabapentin DVT prevention is SCD
[2017-05-25] MEDS: GABAPENTIN 300 MG CAP PO SCH (19:57)
[2017-05-26] VITALS (12 sets, daily range): BP systolic 122–150; BP diastolic 58–83; PULSE 61–80; TEMP 36.5–36.9; O2SAT 93–100
[2017-05-26] MEDS: PANTOprazole INJ 40 MG in DEXTROSE 5% 100ML IV SCH ×5 (01:49→20:28)
[2017-05-26] MEDS: INSULIN ASPART 100 UNITS/ML 3 ML PEN SC SCH ×4 (06:30→20:36)
[2017-05-26] MEDS: ESCITALOPRAM OXALATE 10 MG TAB PO SCH (08:24)
[2017-05-26] MEDS: ATORVASTATIN 10 MG TAB PO SCH (08:24)
[2017-05-26 08:38] LABS: BASO % 0.2 %; BASO ABS # 0.02 K/uL (0-0.2); EOS % 2.1 %; HEMATOCRIT 25.9 % (42-52); HEMOGLOBIN 8.5 g/dL (14.0-18.0); IG# 0.04 K/uL (0.00-0.02); LYMPH % 10.7 %; LYMPH ABS # 1.01 K/uL (1.2-3.4); MEAN CELL VOLUME 92.5 fL (80-100); MEAN CORPUSCULAR HEMOGLOBIN 30.4 pg (25-34); MEAN CORPUSCULAR HGB CONC 32.8 g/dl (32-36); MEAN PLATELET VOLUME 9.7 fL (7.4-10.4); MONO % 8.1 %; MONO ABS # 0.77 K/uL (0.11-0.59); NEUT % 78.5 %; NEUT ABS # 7.42 K/uL (1.4-6.5); PLATELET COUNT 205 K/uL (130-400); RED CELL DISTRIBUTION WIDTH CV 19.1 % (11.5-14.5); RED CELL DISTRIBUTION WIDTH SD 65.6 fL (36.4-46.3); WHITE BLOOD COUNT 9.46 K/uL (4.8-10.8)
--- NOTE | 2017-05-26 08:49 | Progress Note ---
Subjective Date of Service: May 26, 2017. Subjective this pt does not feel any worse, does still have some epigastric discomfort that would be consistent with his esophagitis, is tolerating colon prep without much complaint Problem List Medical Problems: (1) Acute chest pain Status: Acute (2) Acute kidney injury Status: Acute (3) Dehydration Status: Acute (4) Elevated serum creatinine Status: Acute (5) Head trauma Status: Acute (6) Hypomagnesemia Status: Acute (7) Near syncope Status: Acute (8) Orthostatic hypotension Status: Acute (9) Precordial chest pain Status: Acute (10) Scalp laceration Status: Acute (11) Upper GI bleed Status: Acute Review of Systems Constitutional: + fatigue, No fever, No chills, No weakness Respiratory: No cough, No shortness of breath Cardiac: + chest pain, No edema Abdomen: + pain, No nausea, No vomiting, No diarrhea Musculoskeletal: No joint pain, No muscle pain Neurologic: + weakness, No memory loss Psychiatric: No depression symptoms, No anxiety Endo: No fatigue, No excessive thirst Objective Vital Signs Date Time Temp Pulse Resp B/P (MAP) Pulse Ox O2 Delivery O2 Flow Rate FiO2 05/26/17 07:45 36.5 77 16 135/70 (91) 98 05/26/17 04:00 98 Room Air 05/26/17 01:19 36.7 76 19 126/58 (80) 100 Room Air 05/26/17 00:00 98 Room Air 05/25/17 22:00 98 Room Air 05/25/17 19:23 36.2 66 16 135/64 (87) 98 Room Air 05/25/17 16:00 100 Room Air 05/25/17 15:44 36.1 61 16 140/53 (82) 100 Room Air 05/25/17 12:11 36.4 59 18 134/66 (88) 94 Room Air 05/25/17 12:00 94 Room Air Physical Exam General Appearance: WD/WN, + mild distress Eyes: normal inspection, sclerae normal Neck: supple, no JVD Respiratory/Chest: chest non-tender, lungs clear, no accessory muscle use Cardiovascular: regular rate, rhythm, no murmur Abdomen: normal bowel sounds, soft, + tenderness (epigastrium) Extremities: no pedal edema, no calf tenderness Neurologic/Psychiatric: alert, oriented x 3 Skin: normal color, warm/dry Laboratory Results Last 24 Hours Test 05/25/17 08:57 05/25/17 11:53 05/25/17 15:00 05/25/17 16:27 White Blood Count 8.30 K/uL Red Blood Count 2.44 M/uL Hemoglobin 7.3 g/dL 7.3 g/dL Hematocrit 23.1 % 22.8 % Mean Corpuscular Volume 94.7 fL Mean Corpuscular Hemoglobin 29.9 pg Mean Corpuscular Hemoglobin Concent 31.6 g/dl RDW Standard Deviation 68.4 fL RDW Coefficient of Variation 19.5 % Platelet Count 166 K/uL Mean Platelet Volume 9.6 fL Sodium Level 139 mmol/L Potassium Level 3.5 mmol/L Chloride Level 116 mmol/L Carbon Dioxide Level 15 mmol/L Anion Gap 8.0 mmol/L Blood Urea Nitrogen 34 mg/dl Creatinine 1.85 mg/dl Est Creatinine Clear Calc Drug Dose 27.7 ml/min Estimated GFR () 37.4 Estimated GFR (Non- 32.3 BUN/Creatinine Ratio 18.2 Random Glucose 133 mg/dl Calcium Level 7.8 mg/dl Bedside Glucose 86 mg/dl 83 mg/dl Test 05/25/17 20:28 05/26/17 07:24 05/26/17 08:15 Bedside Glucose 94 mg/dl 97 mg/dl White Blood Count 9.46 K/uL Red Blood Count 2.80 M/uL Hemoglobin 8.5 g/dL Hematocrit 25.9 % Mean Corpuscular Volume 92.5 fL Mean Corpuscular Hemoglobin 30.4 pg Mean Corpuscular Hemoglobin Concent 32.8 g/dl Platelet Count 205 K/uL Mean Platelet Volume 9.7 fL Neutrophils (%) (Auto) 78.5 % Lymphocytes (%) (Auto) 10.7 % Monocytes (%) (Auto) 8.1 % Eosinophils (%) (Auto) 2.1 % Basophils (%) (Auto) 0.2 % Neutrophils # (Auto) 7.42 K/uL Lymphocytes # (Auto) 1.01 K/uL Monocytes # (Auto) 0.77 K/uL Eosinophils # (Auto) 0.20 K/uL Basophils # (Auto) 0.02 K/uL RDW Standard Deviation 65.6 fL RDW Coefficient of Variation 19.1 % Immature Granulocyte % (Auto) 0.4 % Immature Granulocyte # (Auto) 0.04 K/uL Assessment and Plan Mr. Hill is an 87 year old male with melena and history of esophageal ulcers , has developed profound acute blood loss anemia, but EGD showed erosive esophagitis without active source of bleeding, hgb has stabilized just above 8 grams, considering colonoscopy given history of colon cancer GI bleed, erosive esophagitis, - protonix gtt, - consult GI - EGD complete, prepping for upcoming colonoscopy Acute blood loss anemia, hgb holding >8 no need for transfusion at this time Hypokalemia likley from diarrhea from colo prep, will replete, prevously magnesium was normal CAD no chest pain even with anemia, - trops negative - continue to hold ASA Acute on chronic RF - CKD III - BUN/creat are increased but improved with hydration - continue IVF as will be npo for testing DM - SS, bsg ac and hs, monitor for toxic affect of hypoglycemia especially while npo Neuropathy - cont Gabapentin, has acceptable control of symptoms DVT prevention is SCD
[2017-05-26 08:54] LABS: ALBUMIN 2.7 gm/dl (3.4-5.0); CALCIUM 8.1 mg/dl (8.5-10.1); CREATININE 1.77 mg/dl (0.60-1.40); POTASSIUM 2.9 mmol/L (3.5-5.1)
[2017-05-26 08:58] LABS: TOTAL PROTEIN 5.6 gm/dl (6.4-8.2)
--- NOTE | 2017-05-26 13:34 | Gastroenterology Progress Note ---
Progress Note Date of Service: May 26, 2017 Subjective Pt evaluation today including: conversation w/ patient, physical exam, chart review, lab review, review of studies, review of inpatient medication list cc f/u melena, anemia HPI Pt tolerated first half gallon golytely yesterday and had good stool output. Per nurse last stool brown not black nor bloody. No abd pain. Some ondynophagia. Review of Systems Respiratory: No shortness of breath Cardiac: No chest pain Medications Current Inpatient Medications Medications (Trade) Dose Ordered Sig/Hugo Route Start Time Stop Time Status Last Admin Dose Admin Acetaminophen (Tylenol Tab) 650 mg Q4H PRN PO 05/23/17 19:00 06/22/17 18:59 Ondansetron HCl (Zofran Inj) 4 mg Q6H PRN IV 05/23/17 19:00 06/22/17 18:59 Morphine Sulfate (MoRPHine SULFATE INJ) 2 mg Q30M PRN IV 05/23/17 19:00 06/06/17 18:59 Atorvastatin Calcium (Lipitor Tab) 10 mg QAM PO 05/24/17 09:00 06/23/17 08:59 05/26/17 08:24 10 MG Escitalopram Oxalate (Lexapro Tab) 10 mg QAM PO 05/24/17 09:00 06/23/17 08:59 05/26/17 08:24 10 MG Gabapentin (Neurontin Cap) 300 mg HS PO 05/23/17 21:00 06/22/17 20:59 05/25/17 19:57 300 MG Miscellaneous Information (Order Awaiting Action) 1 ea QS N/A 05/24/17 00:00 06/23/17 00:00 Insulin Aspart (novoLOG ASPART) SLIDING SCALE G... ACHS SC 05/23/17 21:00 06/22/17 20:59 05/24/17 20:35 1 UNITS Pantoprazole Sodium 40 mg/ Dextrose 100 ml @ 20 mls/hr Q5H IV 05/24/17 01:30 06/23/17 01:29 05/26/17 10:50 20 MLS/HR Glucose (Glucose 40% Gel) 15-30 GRAMS 15 GRAMS... UD PRN PO 05/23/17 21:00 06/22/17 20:59 Glucose (Glucose Chew Tab) 4-8 Tablets 4 Tabl... UD PRN PO 05/23/17 21:00 06/22/17 20:59 Dextrose (Dextrose 50% 50ML Syringe) 25-50ML OF 50% DW IV FOR... UD PRN IV 05/23/17 21:00 06/22/17 20:59 Glucagon (Glucagon Inj) 1 mg UD PRN SQ 05/23/17 21:00 06/22/17 20:59 Polyethylene Glycol/ Electrolytes (Golytely Soln) 8 dose DAILY@1400 PO 05/25/17 14:00 05/26/17 14:01 05/25/17 14:38 8 DOSE Objective Vital Signs Date Time Temp Pulse Resp B/P (MAP) Pulse Ox O2 Delivery O2 Flow Rate FiO2 05/26/17 11:12 36.6 80 18 126/63 (84) 98 Room Air 05/26/17 08:00 98 Room Air 05/26/17 07:45 36.5 77 16 135/70 (91) 98 05/26/17 04:00 98 Room Air 05/26/17 01:19 36.7 76 19 126/58 (80) 100 Room Air 05/26/17 00:00 98 Room Air 05/25/17 22:00 98 Room Air 05/25/17 19:23 36.2 66 16 135/64 (87) 98 Room Air 05/25/17 16:00 100 Room Air 05/25/17 15:44 36.1 61 16 140/53 (82) 100 Room Air Physical Exam General Appearance: WD/WN, no apparent distress Respiratory/Chest: lungs clear, no respiratory distress Cardiovascular: regular rate, rhythm, no edema Abdomen: normal bowel sounds, non tender, soft, no organomegaly, no pulsatile mass Neurologic/Psych: alert, normal mood/affect, oriented x 3 Skin: normal color, warm/dry, no rash Laboratory Results Last 24 Hours Test 05/25/17 15:00 05/25/17 16:27 05/25/17 20:28 05/26/17 07:24 Hemoglobin 7.3 g/dL Hematocrit 22.8 % Bedside Glucose 83 mg/dl 94 mg/dl 97 mg/dl Test 05/26/17 08:15 05/26/17 11:29 White Blood Count 9.46 K/uL Red Blood Count 2.80 M/uL Hemoglobin 8.5 g/dL Hematocrit 25.9 % Mean Corpuscular Volume 92.5 fL Mean Corpuscular Hemoglobin 30.4 pg Mean Corpuscular Hemoglobin Concent 32.8 g/dl Platelet Count 205 K/uL Mean Platelet Volume 9.7 fL Neutrophils (%) (Auto) 78.5 % Lymphocytes (%) (Auto) 10.7 % Monocytes (%) (Auto) 8.1 % Eosinophils (%) (Auto) 2.1 % Basophils (%) (Auto) 0.2 % Neutrophils # (Auto) 7.42 K/uL Lymphocytes # (Auto) 1.01 K/uL Monocytes # (Auto) 0.77 K/uL Eosinophils # (Auto) 0.20 K/uL Basophils # (Auto) 0.02 K/uL RDW Standard Deviation 65.6 fL RDW Coefficient of Variation 19.1 % Immature Granulocyte % (Auto) 0.4 % Immature Granulocyte # (Auto) 0.04 K/uL Anisocytosis PRESENT Sodium Level 141 mmol/L Potassium Level 2.9 mmol/L Chloride Level 110 mmol/L Carbon Dioxide Level 18 mmol/L Anion Gap 13.0 mmol/L Blood Urea Nitrogen 24 mg/dl Creatinine 1.77 mg/dl Est Creatinine Clear Calc Drug Dose 29.0 ml/min Estimated GFR () 39.4 Estimated GFR (Non- 34.0 BUN/Creatinine Ratio 13.7 Random Glucose 97 mg/dl Calcium Level 8.1 mg/dl Total Bilirubin 0.4 mg/dl Aspartate Amino Transf (AST/SGOT) 16 U/L Alanine Aminotransferase (ALT/SGPT) 23 U/L Alkaline Phosphatase 103 U/L Total Protein 5.6 gm/dl Albumin 2.7 gm/dl Globulin 2.8 gm/dl Albumin/Globulin Ratio 0.9 Bedside Glucose 133 mg/dl Assessment and Plan acute blood loss anemia--H and H up post transfusion melena--improved but still plan Colonoscopy tomorrow saturday05/27/17. . Proc and risks explained to patient which include but not limited to med reaction, bleeding, perforation, aspiration, and missed lesions. esophagitis--continue PPI odynophagia--secondary to esophagitis. hypokalemia--discuss with hospitalist correcting this especially since getting more bowel prep today.
[2017-05-26] MEDS: POTASSIUM CHLR 10 MEQ / WTR 10 MEQ in PREMIXED WATER 100 ML IV SCH ×3 (14:18→17:59)
[2017-05-26] MEDS: LAVAGE SOLUTION 4000ML PO SCH (14:19)
[2017-05-26] MEDS: GABAPENTIN 300 MG CAP PO SCH (20:28)
[2017-05-26] MEDS: POTASSIUM CHLORIDE 20 MEQ TABCR PO SCH (20:29)
[2017-05-27] VITALS (11 sets, daily range): BP systolic 137–178; BP diastolic 70–79; PULSE 64–72; TEMP 36.4–36.8; O2SAT 95–100
[2017-05-27] MEDS: PANTOprazole INJ 40 MG in DEXTROSE 5% 100ML IV SCH ×5 (00:58→22:34)
[2017-05-27 05:51] LABS: BASO % 0.3 %; BASO ABS # 0.02 K/uL (0-0.2); EOS % 3.1 %; HEMATOCRIT 24.9 % (42-52); IG# 0.02 K/uL (0.00-0.02); LYMPH % 14.2 %; LYMPH ABS # 0.91 K/uL (1.2-3.4); MEAN CELL VOLUME 92.2 fL (80-100); MEAN CORPUSCULAR HEMOGLOBIN 29.6 pg (25-34); MEAN CORPUSCULAR HGB CONC 32.1 g/dl (32-36); MEAN PLATELET VOLUME 8.7 fL (7.4-10.4); MONO % 10.5 %; MONO ABS # 0.67 K/uL (0.11-0.59); NEUT % 71.6 %; NEUT ABS # 4.59 K/uL (1.4-6.5); PLATELET COUNT 176 K/uL (130-400); RED CELL DISTRIBUTION WIDTH CV 18.8 % (11.5-14.5); RED CELL DISTRIBUTION WIDTH SD 63.9 fL (36.4-46.3); WHITE BLOOD COUNT 6.41 K/uL (4.8-10.8)
[2017-05-27 06:37] LABS: ALBUMIN 2.4 gm/dl (3.4-5.0); CALCIUM 7.9 mg/dl (8.5-10.1); CREATININE 1.55 mg/dl (0.60-1.40); POTASSIUM 3.3 mmol/L (3.5-5.1)
[2017-05-27] MEDS: INSULIN ASPART 100 UNITS/ML 3 ML PEN SC SCH ×4 (08:11→21:00)
[2017-05-27] MEDS: ESCITALOPRAM OXALATE 10 MG TAB PO SCH (09:01)
[2017-05-27] MEDS: POTASSIUM CHLORIDE 20 MEQ TABCR PO SCH ×2 (09:01→21:08)
[2017-05-27] MEDS: ATORVASTATIN 10 MG TAB PO SCH (09:01)
[2017-05-27] MEDS: POTASSIUM CHLR 10 MEQ / WTR 10 MEQ in PREMIXED WATER 100 ML IV SCH ×3 (10:26→22:35)
--- NOTE | 2017-05-27 10:49 | Medical Student: [facility] ---
Med Student Progress Note Date of Service May 27, 2017. Subjective Pt evaluation today including: conversation w/ patient This is an 87-year-old male with a history of colon cancer w/ resection, esophagitis, lung cancer w/ lobectomy, CAD, DMII, and PVD who presented to the ED 05/23 with coffee ground emesis and weakness for three days. He had also had occasional dark stools for one month. He has similar symptoms 07/30 and was diagnosed with esophagitis via EGD. Follow-up 11/29 showed resolution. Resection of colon cancer was done in 2011, and he has had chronic diarrhea since then. He is chronically anemic, with Hb/Hct of 8/24.9. EGD 05/24 showed erosive esophagitis with no active bleeding. Colonoscopy is planned for today. Is tolerating bowel-prep well and has no complaints besides some epigastric tenderness that is ongoing. Denies fever, chills, headache, shortness of breath, chest pain, nausea/vomiting. Review of Systems Constitutional: No fever, No chills Eyes: No worsening of vision ENT: No hearing loss Respiratory: No cough, No wheezing, No shortness of breath Cardiac: No chest pain, No orthopnea Abdomen: + pain (mild epigastric), + diarrhea (chronic), No nausea, No vomiting Musculoskeletal: No joint pain, No muscle pain Male : No dysuria Neurologic: + weakness, No numbness/tingling Heme: + abnormal bleeding/bruising Skin: No rash, No itch All Other Systems: Reviewed and Negative Objective Vital Signs Date Time Temp Pulse Resp B/P (MAP) Pulse Ox O2 Delivery O2 Flow Rate FiO2 05/27/17 07:20 36.6 65 16 157/71 (99) 95 Room Air 05/27/17 04:00 36.5 71 18 137/71 (93) 99 Room Air 05/27/17 04:00 100 Room Air 05/27/17 00:14 36.5 64 18 139/75 (96) 99 Room Air 05/27/17 00:00 100 Room Air 05/26/17 20:07 36.8 74 16 146/73 (97) 98 Room Air 05/26/17 20:00 100 Room Air 05/26/17 16:00 100 Room Air 05/26/17 15:16 36.5 68 18 150/70 (96) 100 Room Air 05/26/17 12:00 98 Room Air 05/26/17 11:12 36.6 80 18 126/63 (84) 98 Room Air Physical Exam General Appearance: WD/WN, no apparent distress Eyes: bilateral eyes normal inspection Neck: supple, no adenopathy Respiratory/Chest: chest non-tender, no respiratory distress Cardiovascular: regular rate, rhythm, no edema Abdomen: normal bowel sounds, non tender, soft Extremities: normal range of motion, non-tender Neurologic/Psychiatric: alert, normal mood/affect, oriented x 3 Skin: normal color, warm/dry Laboratory Results Last 24 Hours Test 05/26/17 11:29 05/26/17 18:02 05/26/17 20:35 05/27/17 05:36 Bedside Glucose 133 mg/dl 85 mg/dl 169 mg/dl White Blood Count 6.41 K/uL Red Blood Count 2.70 M/uL Hemoglobin 8.0 g/dL Hematocrit 24.9 % Mean Corpuscular Volume 92.2 fL Mean Corpuscular Hemoglobin 29.6 pg Mean Corpuscular Hemoglobin Concent 32.1 g/dl Platelet Count 176 K/uL Mean Platelet Volume 8.7 fL Neutrophils (%) (Auto) 71.6 % Lymphocytes (%) (Auto) 14.2 % Monocytes (%) (Auto) 10.5 % Eosinophils (%) (Auto) 3.1 % Basophils (%) (Auto) 0.3 % Neutrophils # (Auto) 4.59 K/uL Lymphocytes # (Auto) 0.91 K/uL Monocytes # (Auto) 0.67 K/uL Eosinophils # (Auto) 0.20 K/uL Basophils # (Auto) 0.02 K/uL RDW Standard Deviation 63.9 fL RDW Coefficient of Variation 18.8 % Immature Granulocyte % (Auto) 0.3 % Immature Granulocyte # (Auto) 0.02 K/uL Anisocytosis PRESENT Ovalocytes 1+ Sodium Level 142 mmol/L Potassium Level 3.3 mmol/L Chloride Level 111 mmol/L Carbon Dioxide Level 22 mmol/L Anion Gap 9.0 mmol/L Blood Urea Nitrogen 15 mg/dl Creatinine 1.55 mg/dl Est Creatinine Clear Calc Drug Dose 33.1 ml/min Estimated GFR () 46.3 Estimated GFR (Non- 39.9 BUN/Creatinine Ratio 9.7 Random Glucose 105 mg/dl Calcium Level 7.9 mg/dl Total Bilirubin 0.3 mg/dl Aspartate Amino Transf (AST/SGOT) 11 U/L Alanine Aminotransferase (ALT/SGPT) 19 U/L Alkaline Phosphatase 96 U/L Total Protein 5.0 gm/dl Albumin 2.4 gm/dl Globulin 2.6 gm/dl Albumin/Globulin Ratio 0.9 Test 05/27/17 07:22 Bedside Glucose 109 mg/dl Assessment and Plan Assessment and Plan: Assessment: This is an 87-year old male with a history of colon cancer w/ resection, esophagitis, lung cancer w/ lobectomy who presented to the ED 05/23 with coffee ground emesis and weakness. DDx includes esophagitis, peptic ulcer disease, malignancy, diverticulosis, AVM. Plan: GI bleed/emesis - GI is consulted - EGD showed erosive esophagitis but no active bleeding - Currently on bowel prep for colonoscopy this afternoon Colonoscopy showed diverticulosis with no active bleeding Will need outpatient pill swallow study if further eval is indicated - Continue Protonix Anemia - Hb/Hct is 8.0/24.9 today, not currently symptomatic - Will transfuse if Hb drops below 7 OR if patient is SOB, increasing weakness/ pallor, etc. - Hold aspirin Hypokalemia - Replace with IV KCl - Hold Lasix CAD - Negative trops in ED - Holding aspirin - restart when bleeding source is found/resolved - Continue atorvastatin DMII - Sliding scale while in hospital - Monitor glucose - on bowel prep with limited PO intake, monitor for hypoglycemia Neuropathy - Continue gabapentin DVT prophylaxis - SCDs Full code
--- NOTE | 2017-05-27 12:57 | Gastroenterology Progress Note ---
Progress Note Date of Service: May 27, 2017 Subjective Pt evaluation today including: conversation w/ patient, physical exam, chart review, lab review, review of studies, review of inpatient medication list CC f/u esophagitis, melena HPI Pt denies abd pain. Prep for colo effective per nurse and patient report. Review of Systems Respiratory: No shortness of breath Cardiac: No chest pain Medications Current Inpatient Medications Medications (Trade) Dose Ordered Sig/Hugo Route Start Time Stop Time Status Last Admin Dose Admin Acetaminophen (Tylenol Tab) 650 mg Q4H PRN PO 05/23/17 19:00 06/22/17 18:59 Ondansetron HCl (Zofran Inj) 4 mg Q6H PRN IV 05/23/17 19:00 06/22/17 18:59 Morphine Sulfate (MoRPHine SULFATE INJ) 2 mg Q30M PRN IV 05/23/17 19:00 06/06/17 18:59 Atorvastatin Calcium (Lipitor Tab) 10 mg QAM PO 05/24/17 09:00 06/23/17 08:59 05/27/17 09:01 10 MG Escitalopram Oxalate (Lexapro Tab) 10 mg QAM PO 05/24/17 09:00 06/23/17 08:59 05/27/17 09:01 10 MG Gabapentin (Neurontin Cap) 300 mg HS PO 05/23/17 21:00 06/22/17 20:59 05/26/17 20:28 300 MG Miscellaneous Information (Order Awaiting Action) 1 ea QS N/A 05/24/17 00:00 06/23/17 00:00 Insulin Aspart (novoLOG ASPART) SLIDING SCALE G... ACHS SC 05/23/17 21:00 06/22/17 20:59 05/24/17 20:35 1 UNITS Pantoprazole Sodium 40 mg/ Dextrose 100 ml @ 20 mls/hr Q5H IV 05/24/17 01:30 06/23/17 01:29 05/27/17 05:23 20 MLS/HR Glucose (Glucose 40% Gel) 15-30 GRAMS 15 GRAMS... UD PRN PO 05/23/17 21:00 06/22/17 20:59 Glucose (Glucose Chew Tab) 4-8 Tablets 4 Tabl... UD PRN PO 05/23/17 21:00 06/22/17 20:59 Dextrose (Dextrose 50% 50ML Syringe) 25-50ML OF 50% DW IV FOR... UD PRN IV 05/23/17 21:00 06/22/17 20:59 Glucagon (Glucagon Inj) 1 mg UD PRN SQ 05/23/17 21:00 06/22/17 20:59 Potassium Chloride (Klor-Con Tab) 40 meq BID PO 05/26/17 21:00 05/27/17 21:01 05/27/17 09:01 40 MEQ Objective Vital Signs Date Time Temp Pulse Resp B/P (MAP) Pulse Ox O2 Delivery O2 Flow Rate FiO2 05/27/17 12:06 36.8 72 16 161/70 (100) 99 Room Air 05/27/17 08:15 95 Room Air 05/27/17 07:20 36.6 65 16 157/71 (99) 95 Room Air 05/27/17 04:00 36.5 71 18 137/71 (93) 99 Room Air 05/27/17 04:00 100 Room Air 05/27/17 00:14 36.5 64 18 139/75 (96) 99 Room Air 05/27/17 00:00 100 Room Air 05/26/17 20:07 36.8 74 16 146/73 (97) 98 Room Air 05/26/17 20:00 100 Room Air 05/26/17 16:00 100 Room Air 05/26/17 15:16 36.5 68 18 150/70 (96) 100 Room Air Physical Exam General Appearance: WD/WN, no apparent distress Respiratory/Chest: lungs clear, no respiratory distress Abdomen: normal bowel sounds, non tender, soft, no organomegaly Neurologic/Psych: normal mood/affect, oriented x 3 Skin: no jaundice Laboratory Results Last 24 Hours Test 05/26/17 18:02 05/26/17 20:35 05/27/17 05:36 05/27/17 07:22 Bedside Glucose 85 mg/dl 169 mg/dl 109 mg/dl White Blood Count 6.41 K/uL Red Blood Count 2.70 M/uL Hemoglobin 8.0 g/dL Hematocrit 24.9 % Mean Corpuscular Volume 92.2 fL Mean Corpuscular Hemoglobin 29.6 pg Mean Corpuscular Hemoglobin Concent 32.1 g/dl Platelet Count 176 K/uL Mean Platelet Volume 8.7 fL Neutrophils (%) (Auto) 71.6 % Lymphocytes (%) (Auto) 14.2 % Monocytes (%) (Auto) 10.5 % Eosinophils (%) (Auto) 3.1 % Basophils (%) (Auto) 0.3 % Neutrophils # (Auto) 4.59 K/uL Lymphocytes # (Auto) 0.91 K/uL Monocytes # (Auto) 0.67 K/uL Eosinophils # (Auto) 0.20 K/uL Basophils # (Auto) 0.02 K/uL RDW Standard Deviation 63.9 fL RDW Coefficient of Variation 18.8 % Immature Granulocyte % (Auto) 0.3 % Immature Granulocyte # (Auto) 0.02 K/uL Anisocytosis PRESENT Ovalocytes 1+ Sodium Level 142 mmol/L Potassium Level 3.3 mmol/L Chloride Level 111 mmol/L Carbon Dioxide Level 22 mmol/L Anion Gap 9.0 mmol/L Blood Urea Nitrogen 15 mg/dl Creatinine 1.55 mg/dl Est Creatinine Clear Calc Drug Dose 33.1 ml/min Estimated GFR () 46.3 Estimated GFR (Non- 39.9 BUN/Creatinine Ratio 9.7 Random Glucose 105 mg/dl Calcium Level 7.9 mg/dl Total Bilirubin 0.3 mg/dl Aspartate Amino Transf (AST/SGOT) 11 U/L Alanine Aminotransferase (ALT/SGPT) 19 U/L Alkaline Phosphatase 96 U/L Total Protein 5.0 gm/dl Albumin 2.4 gm/dl Globulin 2.6 gm/dl Albumin/Globulin Ratio 0.9 Test 05/27/17 11:10 Bedside Glucose 98 mg/dl Assessment and Plan acute blood loss anemia--stable melena-- Colonoscopy today since had drop in H and H and melena post EGD. . Proc and risks explained to patient which include but not limited to med reaction, bleeding, perforation, aspiration, and missed lesions. esophagitis--continue PPI odynophagia--secondary to esophagitis. hypokalemia--discuss with hospitalist correcting this especially since getting more bowel prep today.
[2017-05-27] MEDS ORDERED: LIDOCAINE HCL 2% 2 ML VIAL (20MG/ML) ONE (12:58)
[2017-05-27] MEDS ORDERED: PROPOFOL IV EMULSION 10 MG/ML 20 ML VIAL IV ONE (12:58)
--- NOTE | 2017-05-27 14:10 | GI REPORT ---
Procedure Date: 05/27/2017 1:37 PM Procedure: Colonoscopy Indications: Melena, Acute post hemorrhagic anemia Medicines: Monitored Anesthesia Care Complications: No immediate complications. Estimated blood loss: None. Estimated Blood Loss: Estimated blood loss: none. Procedure: Pre-Anesthesia Assessment: - Prior to the procedure, a History and Physical was performed, and patient medications and allergies were reviewed. The patient is competent. The risks and benefits of the procedure and the sedation options and risks were discussed with the patient. All questions were answered and informed consent was obtained. Patient identification and proposed procedure were verified by the physician, the nurse and the semi automatic sewing machine operator in the procedure room. Mental Status Examination: alert and oriented. Airway Examination: normal oropharyngeal airway and neck mobility. Respiratory Examination: clear to auscultation. CV Examination: normal. Prophylactic Antibiotics: The patient does not require prophylactic antibiotics. Prior Anticoagulants: The patient has taken no previous anticoagulant or antiplatelet agents. ASA Grade Assessment: III - A patient with severe systemic disease. After reviewing the risks and benefits, the patient was deemed in satisfactory condition to undergo the procedure. The anesthesia plan was to use monitored anesthesia care (MAC). Immediately prior to administration of medications, the patient was re-assessed for adequacy to receive sedatives. The heart rate, respiratory rate, oxygen saturations, blood pressure, adequacy of pulmonary ventilation, and response to care were monitored throughout the procedure. The physical status of the patient was re-assessed after the procedure. After I obtained informed consent, the scope was passed under direct vision. Throughout the procedure, the patient's blood pressure, pulse, and oxygen saturations were monitored continuously. The scope was introduced through the anus and advanced to the ileocolonic anastomosis. The colonoscopy was technically difficult and complex due to significant looping. Successful completion of the procedure was aided by using manual pressure and straightening and shortening the scope to obtain bowel loop reduction. The patient tolerated the procedure well. Procedure and risks explained to patient which include but not limited to med reaction, bleeding, perforation, aspiration and missed lesions. Judicious gas insufflation and gas removal done on the way out. The lumen always well visualized when advancing the scope. Washes and suctioning used as needed for good visuzlization of mucosa. Prep was good. Retroflexion in the rectum to look at the distal rectum and anal canal done. Findings: Multiple small and large-mouthed diverticula were found in the entire colon. There was evidence of a prior end-to-side ileo-colonic anastomosis in the ascending colon. This was patent and was characterized by healthy appearing mucosa. The terminal ileum appeared normal. Internal hemorrhoids were found during retroflexion. The hemorrhoids were moderate. No fresh nor old blood noted. The exam was otherwise without abnormality on direct and retroflexion views. Impression: - Diverticulosis in the entire examined colon. - Patent end-to-side ileo-colonic anastomosis, characterized by healthy appearing mucosa. - The examined portion of the ileum was normal. - Internal hemorrhoids. - No fresh nor old blood noted. - The examination was otherwise normal on direct and retroflexion views. - No specimens collected. Recommendation: - Return patient to [facility] for [facility] care. - If patient has recurrent bleeding then recommend outpt capsule endoscopy. Gurdeep Brandon M.D. Gurdeep Brandon MD 05/27/2017 2:10:07 PM This report has been signed electronically. Note Initiated On: 05/27/2017 1:37 PM I attest to the content of the Intraoperative Record and orders documented therein, exceptions below
--- NOTE | 2017-05-27 14:17 | Progress Note ---
Progress Note Date of Service May 27, 2017. Progress Note Pt stable post [place]. No abd complaint. Went over colo report with patient in recovery and sunshine Garrison by phone.
--- NOTE | 2017-05-27 14:40 | Anesthesiology Progress Note ---
Anesthesia Post Op Note Date & Time May 27, 2017 at 14:40 Vital Signs Pain Intensity: 0.0 Vital Signs Past 12 Hours Date Time Temp Pulse Resp B/P (MAP) Pulse Ox O2 Delivery O2 Flow Rate FiO2 05/27/17 14:21 68 18 126/65 (85) 98 Room Air 05/27/17 14:06 77 18 121/70 (87) 99 Room Air 05/27/17 13:06 36.5 69 18 174/81 (112) 100 Room Air 05/27/17 12:15 96 Room Air 05/27/17 12:06 36.8 72 16 161/70 (100) 99 Room Air 05/27/17 08:15 95 Room Air 05/27/17 07:20 36.6 65 16 157/71 (99) 95 Room Air 05/27/17 04:00 36.5 71 18 137/71 (93) 99 Room Air 05/27/17 04:00 100 Room Air Notes Mental Status: alert / awake / arousable, participated in evaluation Pt Amnestic to Procedure: Yes Nausea / Vomiting: adequately controlled Pain: adequately controlled Airway Patency, RR, SpO2: stable & adequate BP & HR: stable & adequate Hydration State: stable & adequate Anesthetic Complications: no major complications apparent
[2017-05-27] MEDS: GABAPENTIN 300 MG CAP PO SCH (21:08)
[2017-05-28] VITALS (25 sets, daily range): BP systolic 122–186; BP diastolic 50–79; PULSE 58–93; TEMP 36.3–37.1; O2SAT 90–100
[2017-05-28] MEDS: PANTOprazole INJ 40 MG in DEXTROSE 5% 100ML IV SCH ×3 (03:10→11:24)
[2017-05-28 05:51] LABS: BASO % 0.1 %; BASO ABS # 0.01 K/uL (0-0.2); EOS % 1.5 %; EOS ABS # 0.13 K/uL (0-0.5); HEMATOCRIT 22.6 % (42-52); HEMOGLOBIN 7.3 g/dL (14.0-18.0); IG# 0.02 K/uL (0.00-0.02); LYMPH % 8.9 %; LYMPH ABS # 0.79 K/uL (1.2-3.4); MEAN CELL VOLUME 91.1 fL (80-100); MEAN CORPUSCULAR HEMOGLOBIN 29.4 pg (25-34); MEAN CORPUSCULAR HGB CONC 32.3 g/dl (32-36); MEAN PLATELET VOLUME 9.2 fL (7.4-10.4); MONO % 9.4 %; MONO ABS # 0.84 K/uL (0.11-0.59); NEUT % 79.9 %; NEUT ABS # 7.12 K/uL (1.4-6.5); PLATELET COUNT 171 K/uL (130-400); RED CELL DISTRIBUTION WIDTH CV 18.6 % (11.5-14.5); RED CELL DISTRIBUTION WIDTH SD 62.8 fL (36.4-46.3); WHITE BLOOD COUNT 8.91 K/uL (4.8-10.8)
[2017-05-28] MEDS: INSULIN ASPART 100 UNITS/ML 3 ML PEN SC SCH ×4 (06:30→20:40)
[2017-05-28 06:32] LABS: ALBUMIN 2.3 gm/dl (3.4-5.0); CALCIUM 7.5 mg/dl (8.5-10.1); CREATININE 1.92 mg/dl (0.60-1.40); POTASSIUM 4.3 mmol/L (3.5-5.1); TOTAL PROTEIN 4.9 gm/dl (6.4-8.2)
[2017-05-28] MEDS: ATORVASTATIN 10 MG TAB PO SCH (07:52)
[2017-05-28] MEDS: ESCITALOPRAM OXALATE 10 MG TAB PO SCH (07:52)
--- NOTE | 2017-05-28 14:11 | Medical Student: [facility] ---
Med Student Progress Note Date of Service May 28, 2017. Subjective Pt evaluation today including: conversation w/ patient Patient is feeling well. Has good appetite, denies nausea/vomiting. Still some pain in epigastric area. Denies headache, fever, SOB, chest pain, weakness. Review of Systems Constitutional: No fever, No chills ENT: No nasal symptoms, No sore throat Respiratory: No cough, No wheezing Cardiac: No chest pain, No orthopnea Abdomen: + pain (epigastric), + diarrhea (chronic), No nausea, No vomiting Musculoskeletal: No muscle pain, No swelling Male : No dysuria, No urinary frequency Neurologic: No weakness, No numbness/tingling Skin: No rash, No itch All Other Systems: Reviewed and Negative Objective Vital Signs Date Time Temp Pulse Resp B/P (MAP) Pulse Ox O2 Delivery O2 Flow Rate FiO2 05/28/17 13:15 36.5 73 18 123/68 98 05/28/17 12:45 36.7 81 16 137/63 100 05/28/17 12:20 36.9 81 16 134/59 99 05/28/17 12:15 96 Room Air 05/28/17 12:01 36.3 72 16 135/70 99 05/28/17 11:36 36.3 58 20 144/71 05/28/17 11:20 36.5 77 18 149/68 (95) 99 Room Air 05/28/17 08:55 98 Room Air 05/28/17 08:30 96 Room Air 05/28/17 07:38 37.0 77 16 143/71 (95) 98 Room Air 05/28/17 04:00 37.1 77 20 122/65 (84) 96 Room Air 05/28/17 04:00 100 Room Air 05/28/17 01:35 36.6 93 16 175/62 (99) 100 Room Air 05/28/17 00:00 100 Room Air 05/27/17 20:11 36.4 71 16 178/79 (112) 100 Room Air 05/27/17 20:00 99 Room Air 05/27/17 16:00 99 Room Air 05/27/17 15:24 36.4 71 18 156/70 (98) 98 Room Air 05/27/17 14:36 66 18 135/75 (95) 99 Room Air 05/27/17 14:21 68 18 126/65 (85) 98 Room Air Physical Exam General Appearance: WD/WN, no apparent distress Eyes: bilateral eyes normal inspection ENT: normal ENT inspection, hearing grossly normal Neck: supple, no adenopathy Respiratory/Chest: chest non-tender, lungs clear, normal breath sounds Cardiovascular: regular rate, rhythm, no edema, no murmur Abdomen: normal bowel sounds, soft, + tenderness (epigastric) Extremities: normal range of motion, non-tender Neurologic/Psychiatric: alert, normal mood/affect, oriented x 3 Skin: normal color, warm/dry Laboratory Results Last 24 Hours Test 05/27/17 16:55 05/27/17 20:53 05/28/17 05:28 05/28/17 07:20 Bedside Glucose 141 mg/dl 121 mg/dl 108 mg/dl White Blood Count 8.91 K/uL Red Blood Count 2.48 M/uL Hemoglobin 7.3 g/dL Hematocrit 22.6 % Mean Corpuscular Volume 91.1 fL Mean Corpuscular Hemoglobin 29.4 pg Mean Corpuscular Hemoglobin Concent 32.3 g/dl Platelet Count 171 K/uL Mean Platelet Volume 9.2 fL Neutrophils (%) (Auto) 79.9 % Lymphocytes (%) (Auto) 8.9 % Monocytes (%) (Auto) 9.4 % Eosinophils (%) (Auto) 1.5 % Basophils (%) (Auto) 0.1 % Neutrophils # (Auto) 7.12 K/uL Lymphocytes # (Auto) 0.79 K/uL Monocytes # (Auto) 0.84 K/uL Eosinophils # (Auto) 0.13 K/uL Basophils # (Auto) 0.01 K/uL RDW Standard Deviation 62.8 fL RDW Coefficient of Variation 18.6 % Immature Granulocyte % (Auto) 0.2 % Immature Granulocyte # (Auto) 0.02 K/uL Polychromasia 1+ Ovalocytes 1+ Sodium Level 137 mmol/L Potassium Level 4.3 mmol/L Chloride Level 110 mmol/L Carbon Dioxide Level 21 mmol/L Anion Gap 6.0 mmol/L Blood Urea Nitrogen 19 mg/dl Creatinine 1.92 mg/dl Est Creatinine Clear Calc Drug Dose 26.7 ml/min Estimated GFR () 35.7 Estimated GFR (Non- 30.8 BUN/Creatinine Ratio 9.8 Random Glucose 116 mg/dl Calcium Level 7.5 mg/dl Total Bilirubin 0.3 mg/dl Aspartate Amino Transf (AST/SGOT) 9 U/L Alanine Aminotransferase (ALT/SGPT) 16 U/L Alkaline Phosphatase 98 U/L Total Protein 4.9 gm/dl Albumin 2.3 gm/dl Globulin 2.6 gm/dl Albumin/Globulin Ratio 0.9 Test 05/28/17 11:14 Bedside Glucose 121 mg/dl Assessment and Plan Assessment and Plan: Assessment: This is an 87-year old male with a history of colon cancer w/ resection, esophagitis, lung cancer w/ lobectomy who presented to the ED 05/23 with coffee ground emesis and weakness. DDx includes esophagitis, peptic ulcer disease, malignancy, diverticulosis, AVM. Plan: GI bleed/emesis - GI is consulted - EGD showed erosive esophagitis but no active bleeding - Colonoscopy 05/27 showed diverticulosis with no active bleeding Will need outpatient pill swallow study if further eval is indicated - Continue Protonix Anemia - Hb/Hct is 7.3/22.6 today, not currently symptomatic but has elevated Cr at 1.92 - Will transfuse 1 unit PRBC - Hold aspirin Hypokalemia - Replace with IV KCl - Hold Lasix CAD - Negative trops in ED - Holding aspirin - restart when bleeding source is found/resolved - Continue atorvastatin DMII - Sliding scale while in hospital - Monitor glucose - on bowel prep with limited PO intake, monitor for hypoglycemia Neuropathy - Continue gabapentin DVT prophylaxis - SCDs Full code
--- NOTE | 2017-05-28 16:03 | Gastroenterology Progress Note ---
Progress Note Date of Service: May 28, 2017 Subjective Pt evaluation today including: conversation w/ patient, physical exam, chart review, lab review, review of studies, review of inpatient medication list CC f/u GI Bleeding HPI Tolerating solid diet. No abd pain. No stools since colonscopy yesterday Review of Systems Respiratory: No shortness of breath Cardiac: No chest pain Medications Current Inpatient Medications Medications (Trade) Dose Ordered Sig/Hugo Route Start Time Stop Time Status Last Admin Dose Admin Acetaminophen (Tylenol Tab) 650 mg Q4H PRN PO 05/23/17 19:00 06/22/17 18:59 Ondansetron HCl (Zofran Inj) 4 mg Q6H PRN IV 05/23/17 19:00 06/22/17 18:59 Morphine Sulfate (MoRPHine SULFATE INJ) 2 mg Q30M PRN IV 05/23/17 19:00 06/06/17 18:59 Atorvastatin Calcium (Lipitor Tab) 10 mg QAM PO 05/24/17 09:00 06/23/17 08:59 05/28/17 07:52 10 MG Escitalopram Oxalate (Lexapro Tab) 10 mg QAM PO 05/24/17 09:00 06/23/17 08:59 05/28/17 07:52 10 MG Gabapentin (Neurontin Cap) 300 mg HS PO 05/23/17 21:00 06/22/17 20:59 05/27/17 21:08 300 MG Miscellaneous Information (Order Awaiting Action) 1 ea QS N/A 05/24/17 00:00 06/23/17 00:00 Insulin Aspart (novoLOG ASPART) SLIDING SCALE G... ACHS SC 05/23/17 21:00 06/22/17 20:59 05/24/17 20:35 1 UNITS Glucose (Glucose 40% Gel) 15-30 GRAMS 15 GRAMS... UD PRN PO 05/23/17 21:00 06/22/17 20:59 Glucose (Glucose Chew Tab) 4-8 Tablets 4 Tabl... UD PRN PO 05/23/17 21:00 06/22/17 20:59 Dextrose (Dextrose 50% 50ML Syringe) 25-50ML OF 50% DW IV FOR... UD PRN IV 05/23/17 21:00 06/22/17 20:59 Glucagon (Glucagon Inj) 1 mg UD PRN SQ 05/23/17 21:00 06/22/17 20:59 Pantoprazole Sodium (Protonix Tab) 40 mg BID PO 05/28/17 21:00 06/27/17 20:59 Sucralfate (Carafate Susp) 1 gm ACHS PO 05/28/17 16:30 06/27/17 16:29 Objective Vital Signs Date Time Temp Pulse Resp B/P (MAP) Pulse Ox O2 Delivery O2 Flow Rate FiO2 05/28/17 15:48 36.7 88 18 126/66 (86) 90 05/28/17 15:24 36.5 71 20 147/51 99 05/28/17 14:25 36.7 70 16 124/61 99 05/28/17 13:15 36.5 73 18 123/68 98 05/28/17 12:45 36.7 81 16 137/63 100 05/28/17 12:20 36.9 81 16 134/59 99 05/28/17 12:15 96 Room Air 05/28/17 12:01 36.3 72 16 135/70 99 05/28/17 11:36 36.3 58 20 144/71 05/28/17 11:20 36.5 77 18 149/68 (95) 99 Room Air 05/28/17 08:55 98 Room Air 05/28/17 08:30 96 Room Air 05/28/17 07:38 37.0 77 16 143/71 (95) 98 Room Air 05/28/17 04:00 37.1 77 20 122/65 (84) 96 Room Air 05/28/17 04:00 100 Room Air 05/28/17 01:35 36.6 93 16 175/62 (99) 100 Room Air 05/28/17 00:00 100 Room Air 05/27/17 20:11 36.4 71 16 178/79 (112) 100 Room Air 05/27/17 20:00 99 Room Air 05/27/17 16:00 99 Room Air Physical Exam General Appearance: WD/WN, no apparent distress Respiratory/Chest: normal breath sounds, no respiratory distress Cardiovascular: regular rate, rhythm, no edema Abdomen: normal bowel sounds, non tender, soft, no organomegaly Neurologic/Psych: alert, normal mood/affect, oriented x 3 Skin: normal color Laboratory Results Last 24 Hours Test 05/27/17 16:55 05/27/17 20:53 05/28/17 05:28 05/28/17 07:20 Bedside Glucose 141 mg/dl 121 mg/dl 108 mg/dl White Blood Count 8.91 K/uL Red Blood Count 2.48 M/uL Hemoglobin 7.3 g/dL Hematocrit 22.6 % Mean Corpuscular Volume 91.1 fL Mean Corpuscular Hemoglobin 29.4 pg Mean Corpuscular Hemoglobin Concent 32.3 g/dl Platelet Count 171 K/uL Mean Platelet Volume 9.2 fL Neutrophils (%) (Auto) 79.9 % Lymphocytes (%) (Auto) 8.9 % Monocytes (%) (Auto) 9.4 % Eosinophils (%) (Auto) 1.5 % Basophils (%) (Auto) 0.1 % Neutrophils # (Auto) 7.12 K/uL Lymphocytes # (Auto) 0.79 K/uL Monocytes # (Auto) 0.84 K/uL Eosinophils # (Auto) 0.13 K/uL Basophils # (Auto) 0.01 K/uL RDW Standard Deviation 62.8 fL RDW Coefficient of Variation 18.6 % Immature Granulocyte % (Auto) 0.2 % Immature Granulocyte # (Auto) 0.02 K/uL Polychromasia 1+ Ovalocytes 1+ Sodium Level 137 mmol/L Potassium Level 4.3 mmol/L Chloride Level 110 mmol/L Carbon Dioxide Level 21 mmol/L Anion Gap 6.0 mmol/L Blood Urea Nitrogen 19 mg/dl Creatinine 1.92 mg/dl Est Creatinine Clear Calc Drug Dose 26.7 ml/min Estimated GFR () 35.7 Estimated GFR (Non- 30.8 BUN/Creatinine Ratio 9.8 Random Glucose 116 mg/dl Calcium Level 7.5 mg/dl Total Bilirubin 0.3 mg/dl Aspartate Amino Transf (AST/SGOT) 9 U/L Alanine Aminotransferase (ALT/SGPT) 16 U/L Alkaline Phosphatase 98 U/L Total Protein 4.9 gm/dl Albumin 2.3 gm/dl Globulin 2.6 gm/dl Albumin/Globulin Ratio 0.9 Test 05/28/17 11:14 Bedside Glucose 121 mg/dl Assessment and Plan acute blood loss anemia--H and H drop but not stool so do not think he is actively GI bleeding. No obvious hematoma on exam. No abd pain to suggest retroperitoneal hematoma. melena-- none at present.EGD grade D esophagitis with path inflammation. COLO R colon resection, IH, divertiuclosis esophagitis--continue PPI odynophagia--secondary to esophagitis. Transfusion in progress. If has continued drop in H and H and no melena or bloody stools then needs A/P CT to look for retroperitoneal hematoma. Ok to continue solid diet.
[2017-05-28] MEDS: SUCRALFATE 1 GM/10 ML UDC PO SCH ×2 (17:31→20:41)
--- NOTE | 2017-05-28 18:31 | Progress Note ---
Subjective Date of Service: May 27, 2017. Subjective This note was placed late for her visit from the on that day the patient was going out for colonoscopy which eventually turned out to be unremarkable he was having some issues with the colonoscopy prep and was on having uncomfortable arms from intravenous potassium infusion otherwise is having no complaints except for mild epigastric discomfort Problem List Medical Problems: (1) Acute chest pain Status: Acute (2) Acute kidney injury Status: Acute (3) Dehydration Status: Acute (4) Elevated serum creatinine Status: Acute (5) Head trauma Status: Acute (6) Hypomagnesemia Status: Acute (7) Near syncope Status: Acute (8) Orthostatic hypotension Status: Acute (9) Precordial chest pain Status: Acute (10) Scalp laceration Status: Acute (11) Upper GI bleed Status: Acute Review of Systems Constitutional: No fever, No chills, No weakness, No fatigue Respiratory: No cough, No shortness of breath Cardiac: No chest pain, No edema Abdomen: + pain, + diarrhea (from his prep), + problem reported (no further melena), No nausea Musculoskeletal: No joint pain, No muscle pain Male : No dysuria, No urinary frequency Psychiatric: No depression symptoms, No anhedonism Objective Vital Signs Date Time Temp Pulse Resp B/P (MAP) Pulse Ox O2 Delivery O2 Flow Rate FiO2 05/28/17 15:48 36.7 88 18 126/66 (86) 90 05/28/17 15:24 36.5 71 20 147/51 99 05/28/17 14:25 36.7 70 16 124/61 99 05/28/17 13:15 36.5 73 18 123/68 98 05/28/17 12:45 36.7 81 16 137/63 100 05/28/17 12:20 36.9 81 16 134/59 99 05/28/17 12:15 96 Room Air 05/28/17 12:01 36.3 72 16 135/70 99 05/28/17 11:36 36.3 58 20 144/71 05/28/17 11:20 36.5 77 18 149/68 (95) 99 Room Air 05/28/17 08:55 98 Room Air 05/28/17 08:30 96 Room Air 05/28/17 07:38 37.0 77 16 143/71 (95) 98 Room Air 05/28/17 04:00 37.1 77 20 122/65 (84) 96 Room Air 05/28/17 04:00 100 Room Air 05/28/17 01:35 36.6 93 16 175/62 (99) 100 Room Air 05/28/17 00:00 100 Room Air 05/27/17 20:11 36.4 71 16 178/79 (112) 100 Room Air 05/27/17 20:00 99 Room Air Physical Exam General Appearance: WD/WN, + mild distress Eyes: normal inspection, sclerae normal Neck: supple, no JVD Respiratory/Chest: chest non-tender, lungs clear, normal breath sounds Cardiovascular: regular rate, rhythm, no murmur Abdomen: normal bowel sounds, soft, + tenderness (only the epigastrium) Extremities: no pedal edema, no calf tenderness Laboratory Results Last 24 Hours Test 05/27/17 20:53 05/28/17 05:28 05/28/17 07:20 05/28/17 11:14 Bedside Glucose 121 mg/dl 108 mg/dl 121 mg/dl White Blood Count 8.91 K/uL Red Blood Count 2.48 M/uL Hemoglobin 7.3 g/dL Hematocrit 22.6 % Mean Corpuscular Volume 91.1 fL Mean Corpuscular Hemoglobin 29.4 pg Mean Corpuscular Hemoglobin Concent 32.3 g/dl Platelet Count 171 K/uL Mean Platelet Volume 9.2 fL Neutrophils (%) (Auto) 79.9 % Lymphocytes (%) (Auto) 8.9 % Monocytes (%) (Auto) 9.4 % Eosinophils (%) (Auto) 1.5 % Basophils (%) (Auto) 0.1 % Neutrophils # (Auto) 7.12 K/uL Lymphocytes # (Auto) 0.79 K/uL Monocytes # (Auto) 0.84 K/uL Eosinophils # (Auto) 0.13 K/uL Basophils # (Auto) 0.01 K/uL RDW Standard Deviation 62.8 fL RDW Coefficient of Variation 18.6 % Immature Granulocyte % (Auto) 0.2 % Immature Granulocyte # (Auto) 0.02 K/uL Polychromasia 1+ Ovalocytes 1+ Sodium Level 137 mmol/L Potassium Level 4.3 mmol/L Chloride Level 110 mmol/L Carbon Dioxide Level 21 mmol/L Anion Gap 6.0 mmol/L Blood Urea Nitrogen 19 mg/dl Creatinine 1.92 mg/dl Est Creatinine Clear Calc Drug Dose 26.7 ml/min Estimated GFR () 35.7 Estimated GFR (Non- 30.8 BUN/Creatinine Ratio 9.8 Random Glucose 116 mg/dl Calcium Level 7.5 mg/dl Total Bilirubin 0.3 mg/dl Aspartate Amino Transf (AST/SGOT) 9 U/L Alanine Aminotransferase (ALT/SGPT) 16 U/L Alkaline Phosphatase 98 U/L Total Protein 4.9 gm/dl Albumin 2.3 gm/dl Globulin 2.6 gm/dl Albumin/Globulin Ratio 0.9 Test 05/28/17 16:49 Bedside Glucose 117 mg/dl Assessment and Plan Mr. Hill is an 87 year old male with melena and history of esophageal ulcers , has developed profound acute blood loss anemia, but EGD showed erosive esophagitis without active source of bleeding, hgb has stabilized just above 8 grams, considering colonoscopy given history of colon cancer GI bleed, erosive esophagitis, - protonix gtt, - consult GI - EGD complete, prepping for upcoming colonoscopy 05/27 Acute blood loss anemia, hgb holding >8 no need for transfusion at this time Hypokalemia likely from diarrhea from colonoscopy prep, will replete, previously magnesium was normal CAD continues with no chest pain even with anemia, - trops negative - continue to hold ASA Acute on chronic RF - CKD III - BUN/creat are increased but improved with hydration - continue IVF as will be npo for testing DM - has been control SS, bsg ac and hs, monitor for toxic affect of hypoglycemia especially while npo Neuropathy - no complaints on continued Gabapentin, has acceptable control of symptoms DVT prevention is SCD
--- NOTE | 2017-05-28 18:34 | Progress Note ---
Subjective Date of Service: May 28, 2017. Subjective Patient feels well today was disappointed that he is receiving a transfusion and not returning home his hemoglobin has bounced around from 7.3 into the 8 range however today he is developing some acute on chronic renal failure and is felt to be beneficial for him have an improved hemoglobin given his history of cardiovascular disease and chronic kidney disease he understands this and is tolerating his transfusion at this time he continues to complain of some mild epigastric discomfort Problem List Medical Problems: (1) Acute chest pain Status: Acute (2) Acute kidney injury Status: Acute (3) Dehydration Status: Acute (4) Elevated serum creatinine Status: Acute (5) Head trauma Status: Acute (6) Hypomagnesemia Status: Acute (7) Near syncope Status: Acute (8) Orthostatic hypotension Status: Acute (9) Precordial chest pain Status: Acute (10) Scalp laceration Status: Acute (11) Upper GI bleed Status: Acute Review of Systems Constitutional: No fever, No chills, No weakness, No fatigue Respiratory: No cough, No shortness of breath, No dyspnea on exertion Cardiac: No chest pain, No edema Abdomen: + pain (mild epigastric), No nausea, No vomiting, No diarrhea Male : No dysuria, No incontinence Neurologic: No memory loss, No weakness Psychiatric: No depression symptoms, No anhedonism Objective Vital Signs Date Time Temp Pulse Resp B/P (MAP) Pulse Ox O2 Delivery O2 Flow Rate FiO2 05/28/17 15:48 36.7 88 18 126/66 (86) 90 05/28/17 15:24 36.5 71 20 147/51 99 05/28/17 14:25 36.7 70 16 124/61 99 05/28/17 13:15 36.5 73 18 123/68 98 05/28/17 12:45 36.7 81 16 137/63 100 05/28/17 12:20 36.9 81 16 134/59 99 05/28/17 12:15 96 Room Air 05/28/17 12:01 36.3 72 16 135/70 99 05/28/17 11:36 36.3 58 20 144/71 05/28/17 11:20 36.5 77 18 149/68 (95) 99 Room Air 05/28/17 08:55 98 Room Air 05/28/17 08:30 96 Room Air 05/28/17 07:38 37.0 77 16 143/71 (95) 98 Room Air 05/28/17 04:00 37.1 77 20 122/65 (84) 96 Room Air 05/28/17 04:00 100 Room Air 05/28/17 01:35 36.6 93 16 175/62 (99) 100 Room Air 05/28/17 00:00 100 Room Air 05/27/17 20:11 36.4 71 16 178/79 (112) 100 Room Air 05/27/17 20:00 99 Room Air Physical Exam General Appearance: WD/WN, + mild distress Eyes: normal inspection, sclerae normal Respiratory/Chest: chest non-tender, lungs clear, normal breath sounds Cardiovascular: regular rate, rhythm, no murmur Abdomen: normal bowel sounds, soft, + tenderness (only epigastric) Extremities: no pedal edema, no calf tenderness Neurologic/Psychiatric: alert, oriented x 3 Laboratory Results Last 24 Hours Test 05/27/17 20:53 05/28/17 05:28 05/28/17 07:20 05/28/17 11:14 Bedside Glucose 121 mg/dl 108 mg/dl 121 mg/dl White Blood Count 8.91 K/uL Red Blood Count 2.48 M/uL Hemoglobin 7.3 g/dL Hematocrit 22.6 % Mean Corpuscular Volume 91.1 fL Mean Corpuscular Hemoglobin 29.4 pg Mean Corpuscular Hemoglobin Concent 32.3 g/dl Platelet Count 171 K/uL Mean Platelet Volume 9.2 fL Neutrophils (%) (Auto) 79.9 % Lymphocytes (%) (Auto) 8.9 % Monocytes (%) (Auto) 9.4 % Eosinophils (%) (Auto) 1.5 % Basophils (%) (Auto) 0.1 % Neutrophils # (Auto) 7.12 K/uL Lymphocytes # (Auto) 0.79 K/uL Monocytes # (Auto) 0.84 K/uL Eosinophils # (Auto) 0.13 K/uL Basophils # (Auto) 0.01 K/uL RDW Standard Deviation 62.8 fL RDW Coefficient of Variation 18.6 % Immature Granulocyte % (Auto) 0.2 % Immature Granulocyte # (Auto) 0.02 K/uL Polychromasia 1+ Ovalocytes 1+ Sodium Level 137 mmol/L Potassium Level 4.3 mmol/L Chloride Level 110 mmol/L Carbon Dioxide Level 21 mmol/L Anion Gap 6.0 mmol/L Blood Urea Nitrogen 19 mg/dl Creatinine 1.92 mg/dl Est Creatinine Clear Calc Drug Dose 26.7 ml/min Estimated GFR () 35.7 Estimated GFR (Non- 30.8 BUN/Creatinine Ratio 9.8 Random Glucose 116 mg/dl Calcium Level 7.5 mg/dl Total Bilirubin 0.3 mg/dl Aspartate Amino Transf (AST/SGOT) 9 U/L Alanine Aminotransferase (ALT/SGPT) 16 U/L Alkaline Phosphatase 98 U/L Total Protein 4.9 gm/dl Albumin 2.3 gm/dl Globulin 2.6 gm/dl Albumin/Globulin Ratio 0.9 Test 05/28/17 16:49 Bedside Glucose 117 mg/dl Assessment and Plan Mr. Hill is an 87 year old male with melena and history of esophageal ulcers , has developed profound acute blood loss anemia, but EGD showed erosive esophagitis without active source of bleeding, hgb has stabilized just above 8 grams, considering colonoscopy given history of colon cancer GI bleed, erosive esophagitis, - protonix gtt, transitioned to oral Protonix adding sucralfate for esophagitis pain - consult GI - EGD complete, showing esophagitis colonoscopy unremarkable for bleeding source Acute blood loss anemia, hgb holding >8 no need for transfusion at this time Hypokalemia replete, previously magnesium was normal Acute blood loss anemia we'll transfuse 2 units packed red blood cells today given his acute renal distress that was seen on labs this morning of 05/28 CAD continues with no chest pain even with anemia, - trops negative however - continue to hold ASA Acute on chronic RF - CKD III worsened by anemia we'll transfuse and follow DM - bsg ac and hs, monitor for toxic affect of hypoglycemia especially while npo Neuropathy - Gabapentin, continue this after discharge DVT prevention is SCD
[2017-05-28] MEDS: GABAPENTIN 300 MG CAP PO SCH (20:41)
[2017-05-28] MEDS: PANTOprazole SOD 40 MG TAB PO SCH (20:41)
[2017-05-29] VITALS (7 sets, daily range): BP systolic 145–162; BP diastolic 63–71; PULSE 67–76; TEMP 36.7–37.2; O2SAT 96–100
[2017-05-29 05:47] LABS: BASO % 0.3 %; BASO ABS # 0.02 K/uL (0-0.2); EOS % 2.5 %; EOS ABS # 0.18 K/uL (0-0.5); HEMATOCRIT 29.9 % (42-52); HEMOGLOBIN 9.7 g/dL (14.0-18.0); IG# 0.05 K/uL (0.00-0.02); LYMPH ABS # 0.71 K/uL (1.2-3.4); MEAN CELL VOLUME 88.7 fL (80-100); MEAN CORPUSCULAR HEMOGLOBIN 28.8 pg (25-34); MEAN CORPUSCULAR HGB CONC 32.4 g/dl (32-36); MEAN PLATELET VOLUME 9.4 fL (7.4-10.4); MONO % 12.6 %; MONO ABS # 0.89 K/uL (0.11-0.59); NEUT % 73.9 %; NEUT ABS # 5.22 K/uL (1.4-6.5); PLATELET COUNT 153 K/uL (130-400); RED CELL DISTRIBUTION WIDTH CV 19.1 % (11.5-14.5); WHITE BLOOD COUNT 7.07 K/uL (4.8-10.8)
[2017-05-29] MEDS: SUCRALFATE 1 GM/10 ML UDC PO SCH ×3 (06:08→16:03)
[2017-05-29 06:15] LABS: ALBUMIN 2.3 gm/dl (3.4-5.0); CALCIUM 7.7 mg/dl (8.5-10.1); CREATININE 1.89 mg/dl (0.60-1.40); POTASSIUM 3.7 mmol/L (3.5-5.1)
[2017-05-29 06:17] LABS: TOTAL PROTEIN 5.2 gm/dl (6.4-8.2)
[2017-05-29] MEDS: INSULIN ASPART 100 UNITS/ML 3 ML PEN SC SCH ×2 (07:38→12:31)
[2017-05-29] MEDS: ESCITALOPRAM OXALATE 10 MG TAB PO SCH (07:50)
[2017-05-29] MEDS: ATORVASTATIN 10 MG TAB PO SCH (07:50)
[2017-05-29] MEDS: PANTOprazole SOD 40 MG TAB PO SCH (07:50)
--- NOTE | 2017-05-29 08:58 | Medical Student: [facility] ---
Med Student Progress Note Date of Service May 29, 2017. Subjective Pt evaluation today including: conversation w/ patient Patient doing well, good appetite, denies nausea/vomiting/diarrhea. Still minimal epigastric pain that is improving each day. Tolerated 2 unit PRBC transfusion well, no fever/sweats/chills. Review of Systems Constitutional: No fever, No chills ENT: No nasal symptoms, No sore throat Respiratory: No cough, No shortness of breath Cardiac: No chest pain, No orthopnea Abdomen: No pain, No nausea, No diarrhea Musculoskeletal: No joint pain, No muscle pain Male : No dysuria, No urinary frequency Neurologic: No weakness, No numbness/tingling Skin: No rash, No itch All Other Systems: Reviewed and Negative Objective Vital Signs Date Time Temp Pulse Resp B/P (MAP) Pulse Ox O2 Delivery O2 Flow Rate FiO2 05/29/17 07:12 37.0 67 18 161/71 (101) 98 Room Air 05/29/17 05:58 36.9 76 20 153/68 (96) 96 Room Air 05/29/17 04:00 Room Air 05/29/17 00:13 36.7 70 20 162/65 (97) 98 Room Air 05/29/17 00:00 Room Air 05/28/17 20:12 36.5 78 20 186/74 (111) 99 Room Air 05/28/17 20:04 96 Room Air 05/28/17 18:00 36.6 68 184/79 05/28/17 17:00 69 20 158/79 05/28/17 16:30 36.4 65 141/65 05/28/17 16:00 36.6 65 18 132/67 98 05/28/17 16:00 96 Room Air 05/28/17 15:48 36.7 88 18 126/66 (86) 90 05/28/17 15:45 36.8 63 18 150/52 05/28/17 15:24 36.5 71 20 147/51 99 05/28/17 15:22 36.5 71 18 147/50 98 05/28/17 14:25 36.7 70 16 124/61 99 05/28/17 13:15 36.5 73 18 123/68 98 05/28/17 12:45 36.7 81 16 137/63 100 05/28/17 12:20 36.9 81 16 134/59 99 05/28/17 12:15 96 Room Air 05/28/17 12:01 36.3 72 16 135/70 99 05/28/17 11:36 36.3 58 20 144/71 05/28/17 11:20 36.5 77 18 149/68 (95) 99 Room Air 05/28/17 08:55 98 Room Air Physical Exam General Appearance: WD/WN, no apparent distress Eyes: bilateral eyes normal inspection ENT: normal ENT inspection, hearing grossly normal Neck: supple, no adenopathy Respiratory/Chest: chest non-tender, lungs clear, normal breath sounds Cardiovascular: regular rate, rhythm, no edema, no murmur Abdomen: normal bowel sounds, soft, + tenderness (epigastric) Extremities: normal range of motion, non-tender Neurologic/Psychiatric: alert, normal mood/affect, oriented x 3 Skin: normal color, warm/dry Laboratory Results Last 24 Hours Test 05/28/17 11:14 05/28/17 16:49 05/28/17 20:35 05/29/17 05:27 Bedside Glucose 121 mg/dl 117 mg/dl 154 mg/dl White Blood Count 7.07 K/uL Red Blood Count 3.37 M/uL Hemoglobin 9.7 g/dL Hematocrit 29.9 % Mean Corpuscular Volume 88.7 fL Mean Corpuscular Hemoglobin 28.8 pg Mean Corpuscular Hemoglobin Concent 32.4 g/dl Platelet Count 153 K/uL Mean Platelet Volume 9.4 fL Neutrophils (%) (Auto) 73.9 % Lymphocytes (%) (Auto) 10.0 % Monocytes (%) (Auto) 12.6 % Eosinophils (%) (Auto) 2.5 % Basophils (%) (Auto) 0.3 % Neutrophils # (Auto) 5.22 K/uL Lymphocytes # (Auto) 0.71 K/uL Monocytes # (Auto) 0.89 K/uL Eosinophils # (Auto) 0.18 K/uL Basophils # (Auto) 0.02 K/uL RDW Standard Deviation 62.0 fL RDW Coefficient of Variation 19.1 % Immature Granulocyte % (Auto) 0.7 % Immature Granulocyte # (Auto) 0.05 K/uL Sodium Level 137 mmol/L Potassium Level 3.7 mmol/L Chloride Level 108 mmol/L Carbon Dioxide Level 21 mmol/L Anion Gap 8.0 mmol/L Blood Urea Nitrogen 23 mg/dl Creatinine 1.89 mg/dl Est Creatinine Clear Calc Drug Dose 27.1 ml/min Estimated GFR () 36.4 Estimated GFR (Non- 31.4 BUN/Creatinine Ratio 12.3 Random Glucose 119 mg/dl Calcium Level 7.7 mg/dl Total Bilirubin 0.4 mg/dl Aspartate Amino Transf (AST/SGOT) 9 U/L Alanine Aminotransferase (ALT/SGPT) 16 U/L Alkaline Phosphatase 96 U/L Total Protein 5.2 gm/dl Albumin 2.3 gm/dl Globulin 2.9 gm/dl Albumin/Globulin Ratio 0.8 Test 05/29/17 07:23 Bedside Glucose 115 mg/dl Assessment and Plan Assessment and Plan: Assessment: This is an 87-year old male with a history of colon cancer w/ resection, esophagitis, lung cancer w/ lobectomy who presented to the ED 05/23 with coffee ground emesis and weakness. DDx includes esophagitis, peptic ulcer disease, malignancy, diverticulosis, AVM. Plan: GI bleed/emesis - GI is consulted - EGD showed erosive esophagitis but no active bleeding - Colonoscopy 05/27 showed diverticulosis with no active bleeding Will consider outpatient pill swallow study if further eval is indicated - Continue Protonix Anemia - Hb/Hct is 9.7/29.9 today, up from 7.3/22.6 05/28, after 2 units PRBCs given yesterday - Not currently symptomatic - still has elevated Cr at 1.89 but this is decreased from yesterday (1.92) - Hold aspirin Hypokalemia - Replace with IV KCl - Hold Lasix CAD - Negative trops in ED - Holding aspirin - restart when bleeding source is found/resolved - Continue atorvastatin DMII - Sliding scale while in hospital - Monitor glucose - on bowel prep with limited PO intake, monitor for hypoglycemia Neuropathy - Continue gabapentin DVT prophylaxis - SCDs Full code
[2017-05-29] MEDS ORDERED: CRFUDL PO (09:00)
[2017-05-29] MEDS ORDERED: PRT40 PO (09:00)
--- NOTE | 2017-05-29 09:05 | Discharge Instructions ---
Discharge Instructions Date of Service May 29, 2017. Admission Reason for Admission: Omi, Gi Bleed Discharge Discharge Diagnosis / Problem: esophagitis with bleeding Discharge Goals Goal(s): Diagnostic testing, Therapeutic intervention Activity Recommendations Activity Limitations: as noted below Lifting Limitations: gradually increase as tolerated GI bleed, erosive esophagitis, oral Protonix twice a day and adding sucralfate for a few more days EGD complete, showing esophagitis colonoscopy unremarkable for bleeding source Acute blood loss anemia CAD continues with no chest pain even with anemia, restart pletal on discharge and aggrenox in a few days There was some strain on your kidneys from your anemia, which did get better but recommend you doctor check your blood work at follow up appointment Current Hospital Diet Patient's current hospital diet: Diabetes Type 2 Diet Discharge Diet Recommended Diet: Regular Diet Procedures Procedures Performed: COLONSCOPY Pending Studies Studies pending at discharge: no Laboratory Results Hemoglobin A1c Test 04/05/17 09:15 Range/Units Estimated Average Glucose 134 mg/dl Hemoglobin A1c 6.3 H 4.5-5.6 % Medical Emergencies . Who to Call and When: Medical Emergencies: If at any time you feel your situation is an emergency, please call 911 immediately. . Non-Emergent Contact Non-Emergency issues call your: Primary Care Provider Call Non-Emergent contact if: temperature is above 101, your pain is unusual for you . . "Provider Documentation" section prepared by Tyrone Gu. . VTE Core Measure Inpt VTE Proph given/why not?: SCD's
--- NOTE | 2017-05-29 10:23 | Gastroenterology Progress Note ---
Progress Note Date of Service: May 29, 2017 Subjective Pt evaluation today including: conversation w/ patient, physical exam, chart review, lab review, review of studies, review of inpatient medication list CC f/u anemia, melena HPI Pt states had bm yesterday witnessed by nurse and patient told normal but do not see it reported in care trends. Other then some mild odynophagia no jose f abd pain. Review of Systems Respiratory: No shortness of breath Cardiac: No chest pain Medications Current Inpatient Medications Medications (Trade) Dose Ordered Sig/Hugo Route Start Time Stop Time Status Last Admin Dose Admin Acetaminophen (Tylenol Tab) 650 mg Q4H PRN PO 05/23/17 19:00 06/22/17 18:59 Ondansetron HCl (Zofran Inj) 4 mg Q6H PRN IV 05/23/17 19:00 06/22/17 18:59 Morphine Sulfate (MoRPHine SULFATE INJ) 2 mg Q30M PRN IV 05/23/17 19:00 06/06/17 18:59 Atorvastatin Calcium (Lipitor Tab) 10 mg QAM PO 05/24/17 09:00 06/23/17 08:59 05/29/17 07:50 10 MG Escitalopram Oxalate (Lexapro Tab) 10 mg QAM PO 05/24/17 09:00 06/23/17 08:59 05/29/17 07:50 10 MG Gabapentin (Neurontin Cap) 300 mg HS PO 05/23/17 21:00 06/22/17 20:59 05/28/17 20:41 300 MG Miscellaneous Information (Order Awaiting Action) 1 ea QS N/A 05/24/17 00:00 06/23/17 00:00 Insulin Aspart (novoLOG ASPART) SLIDING SCALE G... ACHS SC 05/23/17 21:00 06/22/17 20:59 05/24/17 20:35 1 UNITS Glucose (Glucose 40% Gel) 15-30 GRAMS 15 GRAMS... UD PRN PO 05/23/17 21:00 06/22/17 20:59 Glucose (Glucose Chew Tab) 4-8 Tablets 4 Tabl... UD PRN PO 05/23/17 21:00 06/22/17 20:59 Dextrose (Dextrose 50% 50ML Syringe) 25-50ML OF 50% DW IV FOR... UD PRN IV 05/23/17 21:00 06/22/17 20:59 Glucagon (Glucagon Inj) 1 mg UD PRN SQ 05/23/17 21:00 06/22/17 20:59 Pantoprazole Sodium (Protonix Tab) 40 mg BID PO 05/28/17 21:00 06/27/17 20:59 05/29/17 07:50 40 MG Sucralfate (Carafate Susp) 1 gm ACHS PO 05/28/17 16:30 06/27/17 16:29 05/29/17 06:08 1 GM Objective Vital Signs Date Time Temp Pulse Resp B/P (MAP) Pulse Ox O2 Delivery O2 Flow Rate FiO2 05/29/17 07:12 37.0 67 18 161/71 (101) 98 Room Air 05/29/17 05:58 36.9 76 20 153/68 (96) 96 Room Air 05/29/17 04:00 Room Air 05/29/17 00:13 36.7 70 20 162/65 (97) 98 Room Air 05/29/17 00:00 Room Air 05/28/17 20:12 36.5 78 20 186/74 (111) 99 Room Air 05/28/17 20:04 96 Room Air 05/28/17 18:00 36.6 68 184/79 05/28/17 17:00 69 20 158/79 05/28/17 16:30 36.4 65 141/65 05/28/17 16:00 36.6 65 18 132/67 98 05/28/17 16:00 96 Room Air 05/28/17 15:48 36.7 88 18 126/66 (86) 90 05/28/17 15:45 36.8 63 18 150/52 05/28/17 15:24 36.5 71 20 147/51 99 05/28/17 15:22 36.5 71 18 147/50 98 05/28/17 14:25 36.7 70 16 124/61 99 05/28/17 13:15 36.5 73 18 123/68 98 05/28/17 12:45 36.7 81 16 137/63 100 05/28/17 12:20 36.9 81 16 134/59 99 05/28/17 12:15 96 Room Air 05/28/17 12:01 36.3 72 16 135/70 99 05/28/17 11:36 36.3 58 20 144/71 05/28/17 11:20 36.5 77 18 149/68 (95) 99 Room Air Physical Exam General Appearance: WD/WN, no apparent distress Respiratory/Chest: lungs clear, no respiratory distress Cardiovascular: no murmur Abdomen: normal bowel sounds, non tender, soft, no organomegaly, no pulsatile mass Neurologic/Psych: normal mood/affect, oriented x 3 Skin: normal color, warm/dry Laboratory Results Last 24 Hours Test 05/28/17 11:14 05/28/17 16:49 05/28/17 20:35 05/29/17 05:27 Bedside Glucose 121 mg/dl 117 mg/dl 154 mg/dl White Blood Count 7.07 K/uL Red Blood Count 3.37 M/uL Hemoglobin 9.7 g/dL Hematocrit 29.9 % Mean Corpuscular Volume 88.7 fL Mean Corpuscular Hemoglobin 28.8 pg Mean Corpuscular Hemoglobin Concent 32.4 g/dl Platelet Count 153 K/uL Mean Platelet Volume 9.4 fL Neutrophils (%) (Auto) 73.9 % Lymphocytes (%) (Auto) 10.0 % Monocytes (%) (Auto) 12.6 % Eosinophils (%) (Auto) 2.5 % Basophils (%) (Auto) 0.3 % Neutrophils # (Auto) 5.22 K/uL Lymphocytes # (Auto) 0.71 K/uL Monocytes # (Auto) 0.89 K/uL Eosinophils # (Auto) 0.18 K/uL Basophils # (Auto) 0.02 K/uL RDW Standard Deviation 62.0 fL RDW Coefficient of Variation 19.1 % Immature Granulocyte % (Auto) 0.7 % Immature Granulocyte # (Auto) 0.05 K/uL Sodium Level 137 mmol/L Potassium Level 3.7 mmol/L Chloride Level 108 mmol/L Carbon Dioxide Level 21 mmol/L Anion Gap 8.0 mmol/L Blood Urea Nitrogen 23 mg/dl Creatinine 1.89 mg/dl Est Creatinine Clear Calc Drug Dose 27.1 ml/min Estimated GFR () 36.4 Estimated GFR (Non- 31.4 BUN/Creatinine Ratio 12.3 Random Glucose 119 mg/dl Calcium Level 7.7 mg/dl Total Bilirubin 0.4 mg/dl Aspartate Amino Transf (AST/SGOT) 9 U/L Alanine Aminotransferase (ALT/SGPT) 16 U/L Alkaline Phosphatase 96 U/L Total Protein 5.2 gm/dl Albumin 2.3 gm/dl Globulin 2.9 gm/dl Albumin/Globulin Ratio 0.8 Test 05/29/17 07:23 Bedside Glucose 115 mg/dl Assessment and Plan acute blood loss anemia--H and H incremented appropriately today post 2 units PRBCs melena-- none at present.EGD grade D esophagitis with path inflammation. COLO R colon resection, IH, divertiuclosis esophagitis--continue PPI bid odynophagia--secondary to esophagitis. Stable at present.
--- NOTE | 2017-05-30 07:34 | Discharge Summary ---
Discharge Summary Date of Service May 30, 2017. Discharge Summary Admission Date: May 23, 2017 at 18:59 Discharge Date: May 29, 2017 Discharge Disposition: Home with services Principal Diagnosis: acute blood loss anemia transfusion 2 units packed cells Immunizations: Have You Had Influenza Vaccine: Yes Influenza Vaccine Date: Feb 14, 2012 History of Tetanus Vaccine?: Yes Tetanus Immunization Date: Jun 30, 2012 History of Pneumococcal: Yes Pneumococcal Date: Jan 13, 2010 History of Hepatitis B Vaccine: No Medication Reconciliation New Medications: Pantoprazole (Pantoprazole Sodium) 40 Mg Tab 40 MG PO BID, #60 TAB 3 Refills Sucralfate (Sucralfate) 1 Gm/10 Ml Susp 1 GM PO ACHS, #20 DOSE i prefer the liquid please Continued Medications: Allopurinol (Zyloprim) 100 Mg Tab 1 TAB PO QAM Aspirin-Dipyridamole 25MG/200MG (Aggrenox 200MG/25MG) 1 Cap Cap 1 CAP PO BID, CAP please restart 06/01/17 Atorvastatin (Lipitor) 10 Mg Tab 10 MG PO QAM Cilostazol (Pletal) 100 Mg Tab 100 MG PO BID Dutasteride (Dutasteride) 0.5 Mg Cap 0.5 MG PO QAM Ergocalciferol (Drisdol) 50,000 Unit Cap 61527 PO MONTHLY Escitalopram Oxalate (Escitalopram Oxalate) 10 Mg Tab 10 MG PO QAM Furosemide (Furosemide) 20 Mg Tab 20 MG PO 2XWK SATURDAY AND THURSDAYS Gabapentin (Gabapentin) 300 Mg Cap 300 MG PO HS Magnesium Chloride (Mag64) Unknown Strength Tab 1 TAB PO BID Potassium Chloride Microencaps (Potassium Chloride Er) 20 Meq Tab 20 MEQ PO QAM Triamcinolone Acet (Triamcinolone Acetonide) 45 Appln/15 Gm Oint 1 APPLN TOP BID PRN for PRN Discharge Exam Review of Systems: Constitutional: No fever, No chills, No sweats Respiratory: No cough, No wheezing Cardiovascular: No chest pain, No orthopnea Physical Exam: General Appearance: WD/WN, no apparent distress Neck: supple, no JVD Respiratory/Chest: chest non-tender, lungs clear, normal breath sounds Cardiovascular: regular rate, rhythm, no murmur Abdomen / GI: non tender, soft Hospital Course Mr. Hill is an 87 year old male with melena and history of esophageal ulcers , has developed profound acute blood loss anemia, but EGD showed erosive esophagitis without active source of bleeding, hgb has stabilized just above 8 grams, negative colonoscopy colonoscopy GI bleed, erosive esophagitis, patient single drop prior to discharge she is given 2 units packed red blood cells We'll continue on oral Protonix plus sucralfate for a few days for esophagitis pain Hypokalemia replete, previously magnesium was normal Acute blood loss anemia suspect this is from his erosive esophagitis with dilution from IV fluids CAD continues with no chest pain even with anemia, - trops negative we'll resume ASA in about a week Acute on chronic RF - CKD III worsened by anemia resolving Neuropathy - Gabapentin, continue this after discharge Total Time Spent: Greater than 30 minutes This includes examination of the patient, discharge planning, medication reconciliation, and communication with other providers. Discharge Instructions Please refer to the electronic Patient Visit Report (Discharge Instructions) for additional information.
== END 2017-05-29 17:37 | disposition home or self-care (01) | DRG 378 ==
LOC: EDBD 16:38 → C.EDA 16:41 → C.2E 18:59 → ENRESERV 19:14 → C.MED 05-24 21:58
PROVIDERS: ADMIT Internal Medicine; ATTEND Internal Medicine
PROC: 0DB58ZX Excision of Esophagus, Via Natural or Artificial Opening Endoscopic, Diagnostic (ICD-10-PCS; principal; 2017-05-24 14:12)
PROC: 0DJD8ZZ Inspection of Lower Intestinal Tract, Via Natural or Artificial Opening Endoscopic (ICD-10-PCS; 2017-05-27)
DX: K92.2 Gastrointestinal hemorrhage, unspecified (principal); D62 Acute posthemorrhagic anemia; N17.9 Acute kidney failure, unspecified; K21.0 Gastro-esophageal reflux disease with esophagitis; E87.6 Hypokalemia; I25.10 Atherosclerotic heart disease of native coronary artery without angina pectoris; E11.22 Type 2 diabetes mellitus with diabetic chronic kidney disease; E11.40 Type 2 diabetes mellitus with diabetic neuropathy, unspecified; E11.51 Type 2 diabetes mellitus with diabetic peripheral angiopathy without gangrene; N18.3 Chronic kidney disease, stage 3 (moderate); E78.5 Hyperlipidemia, unspecified; M10.9 Gout, unspecified; K44.9 Diaphragmatic hernia without obstruction or gangrene; K57.30 Diverticulosis of large intestine without perforation or abscess without bleeding; K64.8 Other hemorrhoids; F17.200 Nicotine dependence, unspecified, uncomplicated; Z85.038 Personal history of other malignant neoplasm of large intestine; Z98.0 Intestinal bypass and anastomosis status; Z87.19 Personal history of other diseases of the digestive system; Z85.118 Personal history of other malignant neoplasm of bronchus and lung; Z90.2 Acquired absence of lung [part of]; Z79.02 Long term (current) use of antithrombotics/antiplatelets; Z79.899 Other long term (current) drug therapy; Z88.0 Allergy status to penicillin; Z88.8 Allergy status to other drugs, medicaments and biological substances

== ENCOUNTER → 2017-06-10 | Outpatient (CLI) | payer OTHER ==
[~2017-06-10] MED LIST changes: +CRFUDL PO; +ERGO50002 PO; -ERGO500037 PO; -PANT40TA PO; +PRT40 PO
[2017-06-10 17:27] LABS: BASO % 0.3 %; BASO ABS # 0.02 K/uL (0-0.2); EOS % 1.3 %; EOS ABS # 0.08 K/uL (0-0.5); HEMATOCRIT 31.3 % (42-52); IG# 0.01 K/uL (0.00-0.02); LYMPH % 8.5 %; LYMPH ABS # 0.52 K/uL (1.2-3.4); MEAN CELL VOLUME 90.7 fL (80-100); MEAN CORPUSCULAR HGB CONC 31.9 g/dl (32-36); MEAN PLATELET VOLUME 9.9 fL (7.4-10.4); MONO % 10.7 %; MONO ABS # 0.65 K/uL (0.11-0.59); NEUT ABS # 4.82 K/uL (1.4-6.5); PLATELET COUNT 199 K/uL (130-400); RED CELL DISTRIBUTION WIDTH CV 17.8 % (11.5-14.5); RED CELL DISTRIBUTION WIDTH SD 59.2 fL (36.4-46.3)
[2017-06-10 18:13] LABS: ALBUMIN 2.8 gm/dl (3.4-5.0); BLOOD UREA NITROGEN 17 mg/dl (7-18); CARBON DIOXIDE 19 mmol/L (21-32); CREATININE 1.62 mg/dl (0.60-1.40); GLUCOSE 107 mg/dl (70-99); PHOSPHORUS 2.3 mg/dl (2.5-4.9); POTASSIUM 3.6 mmol/L (3.5-5.1); SODIUM 139 mmol/L (136-145)
== END | disposition home or self-care (01) ==
LOC: C.LABPVFM 13:50
PROVIDERS: ATTEND Internal Medicine Nephrology
DX: E55.9 Vitamin D deficiency, unspecified (principal); D64.9 Anemia, unspecified

== ENCOUNTER → 2017-08-07 | Outpatient (CLI) | payer OTHER ==
[~2017-08-07] MED LIST changes: +ASPI81TA28 PO; +RANI150T3 PO; +SLWMEC PO
--- NOTE | 2017-08-07 13:00 | DIAGNOSTIC IMAGING REPORT ---
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 Non-contrast CT imaging was performed over the same range without breath-hold for attenuation correction of PET images and anatomic correlation, but not for primary interpretation as it is not of standard diagnostic quality. CT DOSE: COMPARISON: 09/17/2016. Chest CT 05/09/2017. FINDINGS: HEAD AND NECK: There is no FDG-avid disease or significant lymphadenopathy in the imaged portions of the head and the neck. CHEST: Interval right upper lobe resection. Small residual right pleural effusion unchanged to slightly diminished. 5 mm nodular density unchanged. No significant hilar or mediastinal activity. The spiculated density of the right upper lobe has been removed. Minimal metabolic activity at the hilar and mediastinal regions felt to be primarily vascular. This is unchanged. ABDOMEN/PELVIS: Below the diaphragm, tracer is distributed physiologically in the gastrointestinal and genitourinary tracts. There is no significant lymphadenopathy and no FDG-avid disease. MUSCULOSKELETAL: There is no FDG-avid or destructive bone lesion. IMPRESSION: 1. Interval right upper lobe resection as well as resection of the nodular density previously described. 2. Stable postoperative changes right lung base with an unchanging 5 mm inactive nodule right lung base. 3. PET scan is otherwise negative. The above report was generated using voice recognition software. It may contain grammatical, syntax or spelling errors. Electronically signed by: Andre Ca M.D. 08/07/2017 12:59 PM Dictated Date/Time: 08/07/2017 12:48 PM
== END | disposition home or self-care (01) ==
LOC: C.PET 09:39
PROVIDERS: ATTEND Surgery
DX: C34.90 Malignant neoplasm of unspecified part of unspecified bronchus or lung (principal)

== ENCOUNTER → 2017-08-26 | Day surgery (SDC) | payer OTHER ==
[2017-08-19 12:25] VITALS: Ht 172.7 cm; Wt 72.7 kg
[~2017-08-26] VITALS: Ht 172.7 cm; Wt 72.7 kg
[~2017-08-26] MED LIST changes: -AGG PO; -CRFUDL PO; +LIDOCAINE HCL 2% 2 ML VIAL (20MG/ML) ONE; -MAGN64TA4 PO; +PROPOFOL IV EMULSION 10 MG/ML 20 ML VIAL ONE; +SODIUM CHLORIDE 0.9% 500ML 500 ML IV ONE
--- NOTE | 2017-08-26 15:55 | Endo History and Physical ---
History & Physical Date of Service: August 26, 2017. Chief Complaint: esophagitis Referring Physician: Dr. Jacobo History of Present Illness egd to assess esophagitis Past Medical History Diabetes, Angioplasty/Stent, Reflux, Cancer, High Cholesterol, Hypertension, Kidney Disease Past Surgical History Hx [place] [place] Hx Internal Defibrillator: No Hx Pacemaker: No Hx Abdominal Surgery: Yes (Appendectomy, Cholecystectomy, Bowel resection) Hx of Implantable Prosthesis: No Hx Post-Op Nausea and Vomiting: No Hx Cancer Surgery: Yes (BOWEL RESECTION-2011, R vats right upper lobectomy) Hx Thoracic Surgery: Yes (Right VATS) Hx Orthopedic: No Hx Urinary Tract Surgery: No Social History Smoking Status: Former Smoker Hx Substance Use: No Hx Alcohol Use: Yes (2-3 BEERS A DAY) Allergies Coded Allergies: Amoxicillin (Verified Allergy, Severe, HIVES; ANGIOEDEMA, 08/19/17) Lisinopril (Verified Allergy, Mild, HIVES, 08/19/17) Penicillins (Verified Allergy, Mild, HIVES, 08/19/17) Current Medications Reported Home Medications Medications Dose Route/Sig Max Daily Dose Days Date Category Dose Instructions Slow-Mag Tab (Magnesium Chloride) 64 Mg Tabcr 64 Mg PO BID 08/19/17 Reported Zantac (Ranitidine HCl) 150 Mg Tab 1 Tab PO BID 90 08/19/17 Reported Aspirin Ec (Aspirin) 81 Mg Tab 81 Mg PO BID 08/19/17 Reported Pantoprazole Sodium (Pantoprazole) 40 Mg Tab 40 Mg PO BID 05/29/17 Rx Drisdol (Ergocalciferol) 50,000 Unit Cap 50,000 PO MONTHLY 05/23/17 Reported Zyloprim (Allopurinol) 100 Mg Tab 1 Tab PO QAM 10/10/16 Reported Triamcinolone Acetonide (Triamcinolone Acet) 45 Appln/15 Gm Oint 1 Appln TOP BID PRN 09/27/16 Reported Pletal (Cilostazol) 100 Mg Tab 100 Mg PO BID 09/27/16 Reported Gabapentin 300 Mg Cap 300 Mg PO HS 08/06/16 Reported Escitalopram Oxalate 10 Mg Tab 10 Mg PO QAM 08/06/16 Reported Lipitor (Atorvastatin Calcium) 10 Mg Tab 10 Mg PO QAM 08/06/16 Reported Furosemide 20 Mg Tab 20 Mg PO 2XWK 08/06/16 Reported SATURDAY AND THURSDAYS Dutasteride 0.5 Mg Cap 0.5 Mg PO QAM 08/06/16 Reported Potassium Chloride Er (Potassium Chloride Microencaps) 20 Meq Tab 20 Meq PO QAM 08/06/16 Reported Vital Signs Weight (Kilograms): 72.73 Height (Feet): 5 Height (Inches): 8 Date Time Temp Pulse Resp B/P (MAP) Pulse Ox O2 Delivery O2 Flow Rate FiO2 08/26/17 14:31 36.7 84 20 156/78 (104) 97 Room Air Physical Exam General Appearance: WD/WN, no apparent distress Respiratory/Chest: Auscultation: breath sounds normal Cardiovascular: Heart Auscultation: RRR Abdomen: Bowel Sounds: normal Inspection & Palpation: soft, non-distended, no tenderness, guarding & rebound Assessment and Plan egd
--- NOTE | 2017-08-26 16:36 | GI REPORT ---
Patient Name: Salomón Mckeon Procedure Date: 08/26/2017 4:09 PM Date of : 1930 Admit Type: Outpatient Age: 87 Gender: Male Attending MD: George Juarez MD Procedure: Upper GI endoscopy Providers: George Juarez MD Referring MD: Dallas Jacobo Indications: Reflux esophagitis, Follow-up of reflux esophagitis Medicines: Propofol per Anesthesia Complications: No immediate complications. Estimated blood loss: None. Estimated Blood Loss: Estimated blood loss: none. Estimated blood loss: none. Procedure: Pre-Anesthesia Assessment: - Prior to the procedure, a History and Physical was performed, and patient medications and allergies were reviewed. The patient's tolerance of previous anesthesia was also reviewed. The risks and benefits of the procedure and the sedation options and risks were discussed with the patient. All questions were answered, and informed consent was obtained. Prior Anticoagulants: The patient has taken no previous anticoagulant or antiplatelet agents. ASA Grade Assessment: III - A patient with severe systemic disease. After reviewing the risks and benefits, the patient was deemed in satisfactory condition to undergo the procedure. After obtaining informed consent, the endoscope was passed under direct vision. Throughout the procedure, the patient's blood pressure, pulse, and oxygen saturations were monitored continuously. The Scope was introduced through the mouth, and advanced to the second part of duodenum. The upper GI endoscopy was accomplished without difficulty. The patient tolerated the procedure well. Findings: The upper third of the esophagus and middle third of the esophagus were normal. LA Grade A (one or more mucosal breaks less than 5 mm, not extending between tops of 2 mucosal folds) esophagitis with no bleeding was found in the lower third of the esophagus. Patchy mild inflammation characterized by erosions was found in the gastric antrum. The examined duodenum was normal. Retained gastric contents are not identified on this exam. The exam of the stomach was otherwise normal. Impression: - Normal upper third of esophagus and middle third of esophagus. - LA Grade A reflux esophagitis. - Gastritis. - Normal examined duodenum. - No specimens collected. Recommendation: - Discharge patient to home (ambulatory). - Advance diet as tolerated. - Continue present medications. - Return to referring physician as previously scheduled. - Repeat upper endoscopy is not recommended. - No aspirin, ibuprofen, naproxen, or other non-steroidal anti-inflammatory drugs. MD George Salter MD 08/26/2017 4:36:32 PM This report has been signed electronically. Note Initiated On: 08/26/2017 4:09 PM Number of Addenda: 0 I attest to the content of the Intraoperative Record and orders documented therein, exceptions below {[id number]}
--- NOTE | 2017-08-26 16:45 | Anesthesiology Progress Note ---
Anesthesia Post Op Note Date & Time August 26, 2017 at 16:44 Vital Signs Pain Intensity: 0 Vital Signs Past 12 Hours Date Time Temp Pulse Resp B/P (MAP) Pulse Ox O2 Delivery O2 Flow Rate FiO2 08/26/17 16:29 71 20 117/66 (83) 97 Room Air 08/26/17 14:31 36.7 84 20 156/78 (104) 97 Room Air Notes Mental Status: alert / awake / arousable, participated in evaluation Pt Amnestic to Procedure: Yes Nausea / Vomiting: adequately controlled Pain: adequately controlled Airway Patency, RR, SpO2: stable & adequate BP & HR: stable & adequate Hydration State: stable & adequate Anesthetic Complications: no major complications apparent
[2017-08-26 17:01] VITALS: BP 141/72; PULSE 72; O2SAT 99
--- NOTE | 2017-08-26 17:17 | Discharge Instructions ---
Endoscopy Patient Instructions Date / Procedure(s) Performed August 26, 2017. EGD Allergy Information Coded Allergies: Amoxicillin (Verified Allergy, Severe, HIVES; ANGIOEDEMA, 08/19/17) Lisinopril (Verified Allergy, Mild, HIVES, 08/19/17) Penicillins (Verified Allergy, Mild, HIVES, 08/19/17) Discharge Date / Findings August 26, 2017. minimal esophagitis; HH; mild gastritis Medication Instructions Stopped Medication(s): took ASA yesterday Restart Stopped Medication(s): Reported Home Medications Medications Dose Route/Sig Max Daily Dose Days Date Category Dose Instructions Slow-Mag Tab (Magnesium Chloride) 64 Mg Tabcr 64 Mg PO BID 08/19/17 Reported Zantac (Ranitidine HCl) 150 Mg Tab 1 Tab PO BID 90 08/19/17 Reported Aspirin Ec (Aspirin) 81 Mg Tab 81 Mg PO BID 08/19/17 Reported Pantoprazole Sodium (Pantoprazole) 40 Mg Tab 40 Mg PO BID 05/29/17 Rx Drisdol (Ergocalciferol) 50,000 Unit Cap 50,000 PO MONTHLY 05/23/17 Reported Zyloprim (Allopurinol) 100 Mg Tab 1 Tab PO QAM 10/10/16 Reported Triamcinolone Acetonide (Triamcinolone Acet) 45 Appln/15 Gm Oint 1 Appln TOP BID PRN 09/27/16 Reported Pletal (Cilostazol) 100 Mg Tab 100 Mg PO BID 09/27/16 Reported Gabapentin 300 Mg Cap 300 Mg PO HS 08/06/16 Reported Escitalopram Oxalate 10 Mg Tab 10 Mg PO QAM 08/06/16 Reported Lipitor (Atorvastatin Calcium) 10 Mg Tab 10 Mg PO QAM 08/06/16 Reported Furosemide 20 Mg Tab 20 Mg PO 2XWK 08/06/16 Reported SATURDAY AND THURSDAYS Dutasteride 0.5 Mg Cap 0.5 Mg PO QAM 08/06/16 Reported Potassium Chloride Er (Potassium Chloride Microencaps) 20 Meq Tab 20 Meq PO QAM 08/06/16 Reported Reported Home Medications Medications Dose Route/Sig Max Daily Dose Days Date Category Dose Instructions Slow-Mag Tab (Magnesium Chloride) 64 Mg Tabcr 64 Mg PO BID 08/19/17 Reported Zantac (Ranitidine HCl) 150 Mg Tab 1 Tab PO BID 90 08/19/17 Reported Aspirin Ec (Aspirin) 81 Mg Tab 81 Mg PO BID 08/19/17 Reported Pantoprazole Sodium (Pantoprazole) 40 Mg Tab 40 Mg PO BID 05/29/17 Rx Drisdol (Ergocalciferol) 50,000 Unit Cap 50,000 PO MONTHLY 05/23/17 Reported Zyloprim (Allopurinol) 100 Mg Tab 1 Tab PO QAM 10/10/16 Reported Triamcinolone Acetonide (Triamcinolone Acet) 45 Appln/15 Gm Oint 1 Appln TOP BID PRN 09/27/16 Reported Pletal (Cilostazol) 100 Mg Tab 100 Mg PO BID 09/27/16 Reported Gabapentin 300 Mg Cap 300 Mg PO HS 08/06/16 Reported Escitalopram Oxalate 10 Mg Tab 10 Mg PO QAM 08/06/16 Reported Lipitor (Atorvastatin Calcium) 10 Mg Tab 10 Mg PO QAM 08/06/16 Reported Furosemide 20 Mg Tab 20 Mg PO 2XWK 08/06/16 Reported SATURDAY AND THURSDAYS Dutasteride 0.5 Mg Cap 0.5 Mg PO QAM 08/06/16 Reported Potassium Chloride Er (Potassium Chloride Microencaps) 20 Meq Tab 20 Meq PO QAM 08/06/16 Reported Provider Instructions Activity Restrictions - No exercising or heavy lifting for 24 hours. - Do not drink alcohol the day of the procedure. - Do not drive a car or operate machinery until the day after the procedure. - Do not make any important decisions or sign important papers in 24 hours after the procedure. Following Day: - Return to full activity which may include returning to work/school. Diet Start your diet with liquids and light foods (jello, soup, juice, toast). Then eat your usual diet if not nauseated. Treatment For Common After Affects For mild abdominal pain, bloating, or excessive gas: - Rest - Eat lightly - Lie on right side Follow-Up Information Follow-up with Dr. Jacobo as scheduled Anesthesia Information What You Should Know You have had a procedure that required some medicine to reduce anxiety and discomfort. This treatment is called moderate sedation. After receiving the treatment, you may be sleepy, but you will be able to breathe on your own. The effects of the treatment may last for several hours. Follow these instructions along with Activity/Diet recommendations noted above: * Do NOT do anything where dizziness or clumsiness would be dangerous. * Rest quietly at home today, then you can be up and about tomorrow. * Have a responsible person stay with you the rest of today. * You may have had an I.V. today. If so, you may take the dressing off later today. Recommendations Call your doctor if: * Trouble breathing * Continuous vomiting for more than 24 hours * Temperature above 101 degrees * Severe abdominal pain or bloating * Pain not relieved by pain medicine ordered * There is increased drainage or redness from any incision * A large amount of rectal bleeding greater than 2-3 tablespoons. (If you had a polyp/s removed or have hemorrhoids, a small amount of blood - from the rectum is to be expected.) * You have any unanswered questions or concerns. IN THE EVENT OF A SERIOUS EMERGENCY, GO TO THE NEAREST EMERGENCY ROOM Your discharge instructions were prepared by provider George Juarez. Patient Instructions Signature Page Salomón Mckeon Patient (or Guardian) Signature/Date: I have read and understand the instructions given to me by my caregivers. Caregiver/RN/Doctor Signature/Date: The above-named patient and/or guardian has received patient instructions on this date. + Original Patient Signature Page (only) stays with chart. Please make copy for patient.
== END | disposition home or self-care (01) ==
LOC: C.GI 13:17
PROVIDERS: ATTEND Internal Medicine Gastroenterology
DX: K21.0 Gastro-esophageal reflux disease with esophagitis (principal); E11.9 Type 2 diabetes mellitus without complications; Z95.5 Presence of coronary angioplasty implant and graft; K21.9 Gastro-esophageal reflux disease without esophagitis; E78.00 Pure hypercholesterolemia, unspecified; M19.90 Unspecified osteoarthritis, unspecified site; E78.5 Hyperlipidemia, unspecified; J44.9 Chronic obstructive pulmonary disease, unspecified; I12.9 Hypertensive chronic kidney disease with stage 1 through stage 4 chronic kidney disease, or unspecified chronic kidney disease; N18.3 Chronic kidney disease, stage 3 (moderate); Z90.89 Acquired absence of other organs; Z90.49 Acquired absence of other specified parts of digestive tract; Z87.891 Personal history of nicotine dependence; Z88.0 Allergy status to penicillin; Z88.1 Allergy status to other antibiotic agents; Z88.8 Allergy status to other drugs, medicaments and biological substances; Z85.038 Personal history of other malignant neoplasm of large intestine; Z85.118 Personal history of other malignant neoplasm of bronchus and lung

== ENCOUNTER → 2017-12-06 | Outpatient (CLI) | payer OTHER ==
[~2017-12-06] MED LIST changes: +DUTA1CAP17 PO; -DUTA1CAP3 PO; -ERGO50002 PO; -LIDOCAINE HCL 2% 2 ML VIAL (20MG/ML) ONE; -PROPOFOL IV EMULSION 10 MG/ML 20 ML VIAL ONE; -PRT40 PO; -SODIUM CHLORIDE 0.9% 500ML 500 ML IV ONE; +[UNRECOGNIZED DRUG - CODE] PO
[2017-12-06 12:53] LABS: BLOOD UREA NITROGEN 25 mg/dl (7-18); CALCIUM 8.8 mg/dl (8.5-10.1); CARBON DIOXIDE 18 mmol/L (21-32); CREATININE 1.83 mg/dl (0.60-1.40); GLUCOSE 120 mg/dl (70-99); POTASSIUM 4.5 mmol/L (3.5-5.1); SODIUM 135 mmol/L (136-145)
== END | disposition home or self-care (01) ==
LOC: C.LABPVFM 11:25
PROVIDERS: ATTEND Family Medicine
DX: I10 Essential (primary) hypertension (principal)

== ENCOUNTER 2019-01-11 13:50 | Inpatient (IN) ==
[2019-01-11] MEDS ORDERED: ACETAMINOPHEN 500 MG TAB PO STA (14:33)
[2019-01-11 15:53] LABS: Alanine Aminotransferase 14 U/L (12-78); Albumin Globulin Ratio 0.8 (0.9-2); Albumin Level 3.1 gm/dl (3.4-5.0); Alkaline Phosphatase 122 U/L (45-117); Aspartate Aminotransferase 14 U/L (15-37); BUN Creatinine Ratio 12.6 (10-20); Bilirubin,Total 0.5 mg/dl (0.2-1); Blood Urea Nitrogen 28 mg/dl (7-18); Carbon Dioxide 17 mmol/L (21-32); Chloride 108 mmol/L (98-107); Est GFR (African American) 30.1; Globulin 3.9 gm/dl (2.5-4.0); Glucose 108 mg/dl (70-99); Potassium 2.5 mmol/L (3.5-5.1); Sodium 139 mmol/L (136-145)
[2019-01-11] MEDS ORDERED: ACETAMINOPHEN 500 MG TAB ONE (16:38)
[2019-01-11 16:42] LABS: Mean Corpuscular Hgb Conc 32.6 g/dL (32-36)
[2019-01-11 17:46] LABS: Mean Platelet Volume 10.4 fL (7.4-10.4); Platelet Count 142 K/uL (130-400)
[2019-01-11 17:47] LABS: Basophils # (auto) 0.01 K/uL (0-0.2); Basophils % (auto) 0.1 %; Eosinophils # (auto) 0.02 K/uL (0-0.5); Eosinophils % (auto) 0.2 %; Hematocrit (blood only) 31.1 % (42-52); Hemoglobin 10.4 g/dL (14.0-18.0); Immature Granulocytes # (auto) 0.02 K/uL (0.00-0.02); Immature Granulocytes % (auto) 0.2 %; Lymphocytes % (auto) 7.1 %; Mean Corpuscular Hemoglobin 27.2 pg (25-34); Mean Corpuscular Volume 81.2 fL (80-100); Monocytes # (auto) 0.95 K/uL (0.11-0.59); Monocytes % (auto) 11.2 %; Neutrophils # (auto) 6.88 K/uL (1.4-6.5); Neutrophils % (auto) 81.2 %; Platelet Estimate Normal (Normal); RDW Coefficient of Variation 17.2 % (11.5-14.5); RDW Standard Deviation 51.2 fL (36.4-46.3); Red Blood Count 3.83 M/uL (4.7-6.1); White Blood Count 8.48 K/uL (4.8-10.8)
[2019-01-11] MEDS ORDERED: POTASSIUM CHLORIDE / WTR 10 MEQ/100 ML PLCT IV ONE (17:58)
--- NOTE | 2019-01-11 18:13 | Ultrasound Report ---
ULTRASOUND LEFT LOWER EXTREMITY VENOUS CLINICAL HISTORY: Left thigh pain. COMPARISON STUDY: Bilateral lower extremity venous ultrasound dated 07/03/2011. TECHNIQUE: Real-time, grayscale, and color Doppler sonography of the deep veins of the left lower ext remity was performed from the inguinal crease to the calf. Compression and augmentation were utilized . FINDINGS: There is no sonographic evidence of deep venous thrombosis identified in the left lower ext remity. The common femoral, superficial femoral, and popliteal veins are patent and normally compress ible. The greater saphenous vein and the profunda femoris vein at the junction with the common femora l vein are clear. The visualized calf veins are patent. The right common femoral vein as well as the right superficial femoral vein were also assessed and patent. IMPRESSION: There is no sonographic evidence of deep venous thrombosis identified in the left lower e xtremity. Electronically signed by: Luther Pardo M.D. 01/11/2019 6:12 PM
--- NOTE | 2019-01-11 18:42 | Ultrasound Report ---
ULTRASOUND LEFT LOWER EXTREMITY ARTERIAL; ANKLE-BRACHIAL INDICES CLINICAL HISTORY: Left thigh pain. COMPARISON STUDY: No priors. TECHNIQUE: Real-time, grayscale, and color Doppler sonography of the arteries of the left lower extre mity was performed from the inguinal crease to the foot. Ankle-brachial indices were assessed. FINDINGS: Ankle brachial indices: Left brachial pressure measures 170. Pressures in the right posterior tibial artery measure 143 for an ASUNCION of 0.84, and pressures in the right dorsalis pedis artery measure 120 f or an ASUNCION of 0.71. The left posterior tibial artery is noncompressible. Pressures in the left dorsali s pedis artery measure 98 for an ASUNCION 0.58. Left lower extremity: Atherosclerotic plaque and irregularity are seen throughout the arteries of the left lower extremity. The cardiac pulsations appear irregularly irregular. A femorofemoral bypass gr aft is patent. Triphasic waveforms are seen within the left common femoral artery. The left common fe moral artery is patent, with velocities measuring up to 102 cm/s. The profunda femoris artery is mendez nt, with velocities measuring up to 215 cm/s. There are triphasic arterial waveforms seen throughout the superficial femoral artery. There are elevated velocities within the proximal left superficial fe moral artery, measuring up to 196 cm/s, suggesting high-grade stenosis. There are biphasic to triphas ic waveforms in the mid to distal superficial femoral artery, with velocities measuring up to 103 cm/ s. There are biphasic to triphasic waveforms in the popliteal artery, with velocities measuring up to 53 cm/s. There is two-vessel runoff to the foot. Biphasic to triphasic waveforms are seen in the yaa f vessels. The proximal to mid portions of the anterior tibial artery are patent. The distal anterior tibial artery appears thrombosed. The dorsalis pedis and peroneal arteries appear patent. Velocities within the calf arteries measure up to 66 cm/s. The dorsalis pedis artery is patent, with velocities measuring up to 23 cm/s. IMPRESSION: 1. Ankle-brachial indices as above. 2. A femorofemoral bypass graft is patent. 3. There are focally elevated velocities within the proximal left superficial femoral artery suggesti ng high-grade stenosis. 4. There is likely occlusion of the distal left anterior tibial artery. Dictated: 01/11/2019 6:12 PM Transcribed: 01/11/2019 6:34 PM Kristal [id number] [email or web address] Electronically signed by: Luther Pardo M.D. 01/11/2019 6:41 PM
--- NOTE | 2019-01-11 19:02 | XRay Report ---
LEFT FEMUR 3 VIEWS CLINICAL HISTORY: Left leg pain. No reported history of trauma. FINDINGS: AP, frog-leg, and lateral views of the left femur are obtained. No prior studies are availa ble for comparison at the time of dictation. The skeletal structures are osteopenic. There is no radi ographic evidence of left femoral fracture. The visualized left hemipelvis appears intact. Moderate a rthritic change and joint space narrowing is seen in the left hip. Degenerative change is also noted in the left knee. The overlying soft tissues are normal as imaged. Advanced atherosclerotic calcifica tion is seen in the left femoral artery. IMPRESSION: 1. No acute bony abnormality is identified involving the left femur. 2. Osteopenia and degenerative change as above. Electronically signed by: Luther Pardo M.D. 01/11/2019 7:01 PM
[2019-01-11] MEDS ORDERED: SODIUM CHLORIDE 0.9% 1000ML 1,000 ML IV STA (19:08)
[2019-01-11] MEDS ORDERED: POTASSIUM CHLORIDE 10 MEQ TABCR PO STA (20:37)
--- NOTE | 2019-01-11 20:57 | History & Physical Report ---
Date of Service January 11, 2019 Assessment & Plan (1) Left leg pain: 88-year-old male was admitted on 11 January 2019 for acute left thigh pain and hypokalemia. Left thigh pain, history of peripheral arterial disease: Acute onset in afternoon on day prior to admit. No reported trauma, fevers, infectious symptoms, joint pains, or distal leg complaints. Imaging shows concern for significant PAD. Suspect his symptoms are vascular in origin. - In ED, afebrile, not tachycardic or tachypneic, is hypertensive, with normal room SpO2. No leukocytosis. Anion gap of 14. XR left femur notes osteopenia, degenerative changes, but no acute bony abnormality. LLE arterial u/s noted a patent femoral-femoral bypass graft but suggestion of proximal left superficial femoral artery high-grade stenosis and likely occlusion of the distal left anterior tibial artery. LLE venous u/s without evidence of DVT. - In ED, treated with Tylenol which resolved his pain. - Will consult vascular surgery. Continue home cilostazol and Robaxin. Will check CK and lactate as a precaution. Hypokalemia: Admit K 2.5. Reported history of this and hypomagnesemia. Is on magnesium and potassium at home. - ED ordered 10 mEq of KCl. - Will give additional KCl 40 meq PO x 1 and 40 mEq IV. Will check mag level tonight and recheck both in AM. - Will need close outpatient f/u to make sure this is chronically addressed. Acute on chronic kidney disease (stage 3): Admit creatinine 2.2, BUN 28. May be partially pre-renal due to decreased ambulation today. - Will treat with some IVF and recheck in a.m. Ongoing medical issues: - Hypertension: Continue home aspirin, atorvastatin, losartan. Held home Lasix initially due to hypokalemia. - Chronic anemia: Admit Hb 10.4, about at baseline. Continue home iron. - DM2: Last available HbA1c 6.5 (Feb 2018). Unclear if is on any home meds for this. --- Will check A1c in AM. Insulin sliding scale coverage prn. - Colon cancer, non-small cell lung cancer, pulmonary emphysema: Reported history of lobectomy. No reported oxygen requirements. Says he has loose stools at baseline. - Depression: Continue home escitalopram. - BPH: Continue home dutasteride. - GERD: Continue home ranitidine. - Gout: Continue home allopurinol. Last reported attack years ago in bilateral feet. - AAA. Code status: Full code. Diet: N.p.o. at midnight. DVT prophy: Heparin. PT/OT: Deferred. [facility] (2) PAD (peripheral artery disease): (3) Hypokalemia: (4) Acute kidney injury superimposed on chronic kidney disease: (5) Hypertension: (6) Chronic anemia: (7) Diabetes mellitus: (8) Colon cancer: (9) Non-small cell lung cancer: (10) Pulmonary emphysema: (11) Depression: (12) BPH (benign prostatic hyperplasia): (13) GERD (gastroesophageal reflux disease): (14) Gout: (15) Aneurysm of abdominal aorta: History of Present Illness Primary Care Provider: Dallas Jacobo MD 88-year-old male is accompanied by his son requesting evaluation of acute left thigh regional pain. Patient says that he was watching football yesterday (28Sep) afternoon when, attempting to stand, he felt acute left thigh pain. This significantly limited his ability to stand such that he was barely able to walk with his walker. He tends to resolve when he would sit back down but immediately returned with any attempted exertion. Patient denies history of the same, so ended up not taking any medicines and hoped it would resolve on its own. He woke this morning with some rest pain, different than yesterday. Continues to feel worse with any level of movement. Denies any actual hip, knee, or distal leg pain, numbness, or swelling. No known falls or trauma. Denies fevers or constitutional symptoms. Denies any similar complaints in the right leg or other extremities. He notes he has a history of peripheral artery disease and underwent surgical correction for this years ago. He says he is followed by Dr. Yun of vascular surgery annually. Patient denies any other acute concerns. - Past medical history includes hypertension, chronic anemia, DM 2, colon cancer, non-small cell lung cancer, pulmonary emphysema, depression, BPH, GERD, gout, peripheral artery disease, CKD stage III, hypokalemia, hypomagnesemia. - Past surgical history includes AAA repair, appendectomy, cholecystectomy, colon resection, lung lobectomy, hernia repair. - Social history includes former smoker. Lives at home with family nearby. Allergies Allergy/AdvReac Type Severity Reaction Status Date / Time amoxicillin Allergy Severe HIVES; Verified 01/11/19 16:12 ANGIOEDEMA lisinopril Allergy Mild HIVES Verified 01/11/19 16:12 Penicillins Allergy Mild HIVES Verified 01/11/19 16:12 Home Medications Home Medications Medication Instructions Recorded Confirmed Type aspirin 81 mg tablet,delayed 81 mg PO DAILY #30 tab 10/02/18 01/11/19 Rx release escitalopram 10 mg tablet 10 mg PO DAILY #30 tab 10/02/18 01/11/19 Rx magnesium 64 mg (magnesium 128 mg PO DAILY #30 tab 10/02/18 01/11/19 Rx chloride) tablet,delayed release allopurinol 100 mg tablet 100 mg PO DAILY #30 tab 10/07/18 01/11/19 Rx atorvastatin 10 mg tablet 10 mg PO DAILY #30 tab 10/07/18 01/11/19 Rx dutasteride 0.5 mg capsule 0.5 mg PO DAILY #90 cap 10/07/18 01/11/19 Rx methocarbamol 500 mg tablet 500 mg PO BID PRN #20 tab 10/07/18 01/11/19 Rx ranitidine 150 mg tablet 150 mg PO BID #60 tab 11/10/18 01/11/19 Rx blood sugar diagnostic strips #10 ea 12/10/18 01/11/19 History lancets 28 gauge #25 ea 12/10/18 01/11/19 History cilostazol 100 mg tablet 100 mg PO BID #60 tab 12/12/18 01/11/19 Rx ferrous sulfate 325 mg (65 mg 325 mg PO DAILY #30 tab 01/05/19 01/11/19 Rx iron) tablet ergocalciferol (vitamin D2) 50,000 units PO MONTHLY 01/11/19 01/11/19 History furosemide 20 mg PO DIRECTED 01/11/19 01/11/19 History losartan 50 mg PO DAILY 01/11/19 01/11/19 History potassium chloride 20 meq PO DAILY 01/11/19 01/11/19 History Past Med/Surg History Medical History Vitamin D deficiency (Chronic) Pulmonary emphysema (Chronic) Lung nodule (Chronic) Hypokalemia (Chronic) Hypomagnesemia (Acute) Depression (Acute) Colon cancer (Chronic) BPH (benign prostatic hyperplasia) (Acute) Aneurysm of abdominal aorta (Chronic) Anemia (Chronic) Acid reflux disease with ulcer (Acute) Carotid artery stenosis (Acute) Diabetes mellitus (Acute) Diabetic neuropathy (Acute) Hyperlipidemia (Acute) Hypertension (Chronic) Non-small cell lung cancer (Acute) Lower & Upper PAD (peripheral artery disease) (Acute) Second degree AV block (Acute) 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 gout (Resolved) Surgical History H/O hernia repair History of AAA (abdominal aortic aneurysm) repair History of appendectomy History of cholecystectomy History of colon surgery History of lung surgery Family History Father COPD (chronic obstructive pulmonary disease) Cancer lung cancer Mother Cancer lung Brother Hypertension COPD (chronic obstructive pulmonary disease) Son Cancer liver Social History Preferred Language: Surinamese Communication Ability: Effective Research Physician Required: No Beliefs That Will Affect Care: None Current Living Situation: Alone Feels Safe at Home: Yes Safety Concerns: Feels Safe At This Time Smoking Status: Former smoker Cigarettes Per Day: 20 ; Hx Alcohol Use: No Hx Substance Use: No Review of Systems Review of Systems: Constitutional: Denies fevers, chills. Eyes: Denies any visual loss or diplopia ENT: Denies any ear/nose/throat pain or difficulty speaking or swallowing Respiratory: Denies any dyspnea, cough, hemoptysis Cardiovascular: Denies any chest pain or feeling of edema Gastrointestinal: Denies any abdominal pain, nausea/vomiting/diarrhea Musculoskeletal: See HPI. Skin: Denies any known acute rashes or lesions Neuro: Denies any headache, acute numbness, or difficulties with speech or swallow. Psych: Denies any recent depression or anxiety Physical Exam Physical Exam: GENERAL: Awake, alert, well-appearing, in no acute distress HENT: Normocephalic, atraumatic. Oropharynx unremarkable. EYES: Normal conjunctiva. Sclera non-icteric. NECK: Inspection normal. Non-tender. Supple and full ROM. No nuchal rigidity. CARDIAC: +S1S2 RRR, no murmurs. RESPIRATORY: Clear to auscultation. No wheezes or rales. Normal respiratory effort. GI: +BS, soft, non-distended. No tenderness to palpation. No rebound or guarding. Well-healed abdominal surgical scars. EXTREMITIES: No pedal edema or calf tenderness. -The left lower extremity is cool to touch. Positive posterior tibial pulse. Patient can wiggle his toes but has difficulty with dorsi or plantarflexion. Cannot lift his leg off the bed. - Right lower extremity is warm to touch. Positive posterior tibial pulse. No difficulty with foot or leg movement. NEURO: No gross neuro deficits. Results & Data Vital Signs (Past 12 Hours) Vital Signs Temp Pulse Pulse Resp BP BP Pulse Ox 01/11/19 19:00 82 15 162/86 H 99 01/11/19 15:51 78 17 176/91 H 100 01/11/19 13:54 36.5 C 85 16 151/97 H 98 Laboratory Results 01/11/19 01/11/19 01/11/19 Range/Units 16:24 15:13 15:13 WBC 8.48 Cancelled RBC 3.83 L Cancelled Hgb 10.4 L Cancelled Hct 31.1 L Cancelled MCV 81.2 Cancelled MCH 27.2 Cancelled MCHC 32.6 Cancelled RDW Std Deviation 51.2 H Cancelled RDW Coeff of Kelly 17.2 H Cancelled Plt Count 142 Cancelled MPV 10.4 Cancelled Immature Gran % (Auto) 0.2 Cancelled Neut % (Auto) 81.2 Cancelled Lymph % (Auto) 7.1 Cancelled [place] % (Auto) 11.2 Cancelled Eos % (Auto) 0.2 Cancelled Baso % (Auto) 0.1 Cancelled Immature Gran # (Auto) 0.02 Cancelled Neut # (Auto) 6.88 H Cancelled Lymph # (Auto) 0.60 L Cancelled [place] # (Auto) 0.95 H Cancelled Eos # (Auto) 0.02 Cancelled Baso # (Auto) 0.01 Cancelled Absolute Nucleated RBC Cancelled Nucleated RBC % (auto) Cancelled Neutrophils % (Manual) Cancelled Band Neutrophils % Cancelled Lymphocytes % (Manual) Cancelled Prolymphocyte % Cancelled Reactive Lymphs % (Man) Cancelled Monocytes % (Manual) Cancelled Eosinophils % (Manual) Cancelled Basophils % (Manual) Cancelled Metamyelocytes % (Man) Cancelled Myelocytes % (Man) Cancelled Promyelocytes % (Man) Cancelled Blast Cells % (Manual) Cancelled Plasma Cell % (Manual) Cancelled Other Cells % Cancelled Nucleated RBC % Cancelled Neutrophils # (Manual) Cancelled Band Neutrophils # Cancelled Total Absolute Neuts Cancelled Lymphocytes # (Manual) Cancelled Prolymphocyte # Cancelled Reactive Lymphs # Cancelled Total Abs Lymphocytes Cancelled Monocytes # (Manual) Cancelled Eosinophils # (Manual) Cancelled Basophils # (Manual) Cancelled Metamyelocytes # (Man) Cancelled Myelocytes # (Manual) Cancelled Promyelocytes # (Man) Cancelled Blast Cells # (Man) Cancelled Plasma Cell # (Manual) Cancelled Other Cells # Cancelled Nucleated RBCs # (Man) Cancelled Hypersegmented Neuts Cancelled Hyposegmented Neuts Cancelled Hypogranular Neuts Cancelled Large Granular Lymphs Cancelled # Lrg Granular Lymphs Cancelled Hairy Cells Cancelled Smudge Cells Cancelled Toxic Granulation Cancelled Toxic Vacuolation Cancelled Dohle Bodies Cancelled Gina Rods Cancelled Platelet Estimate Normal Cancelled Hypogranular Platelets Cancelled Clumped Platelets Cancelled Giant Platelets Cancelled Platelet Satelliting Cancelled RBC Morphology Cancelled Polychromasia Cancelled Hypochromasia Cancelled Poikilocytosis Cancelled Basophilic Stippling Cancelled Anisocytosis Cancelled Microcytosis Cancelled Macrocytosis Cancelled Spherocytes Cancelled Pappenheimer Bodies Cancelled Sickle Cells Cancelled Target Cells Cancelled Tear Drop Cells Cancelled Ovalocytes Cancelled Stomatocytes Cancelled [place] Bodies Cancelled Echinocytes Cancelled Acanthocytes (Spur) Cancelled Rouleaux Cancelled RBC Agglutinates Cancelled Schistocytes Cancelled RBC Morph Comment Cancelled Sezary Cell Cancelled Sodium 139 (136-145) mmol/L Potassium 2.5 L* (3.5-5.1) mmol/L Chloride 108 H (98-107) mmol/L Carbon Dioxide 17 L (21-32) mmol/L Anion Gap 14.0 H (3-11) BUN 28 H (7-18) mg/dl Creatinine 2.20 H (0.6-1.4) mg/dl Est Cr Clr Drug Dosing Not Reportable Est GFR ( Amer) 30.1 Est GFR (Non-Af Amer) 26.0 BUN/Creatinine Ratio 12.6 (10-20) Glucose 108 H (70-99) mg/dl Calcium 9.0 (8.5-10.1) mg/dl Total Bilirubin 0.5 (0.2-1) mg/dl AST 14 L (15-37) U/L ALT 14 (12-78) U/L Alkaline Phosphatase 122 H (45-117) U/L Total Protein 7.0 (6.4-8.2) gm/dl Albumin 3.1 L (3.4-5.0) gm/dl Globulin 3.9 (2.5-4.0) gm/dl Albumin/Globulin Ratio 0.8 L (0.9-2) Medications Administered Current Inpatient Medications Sodium Chloride (Nss 1000ml) 1,000 mls @ 100 mls/hr IV .Q10H STA Stop: 01/12/19 05:07 Last Admin: 01/11/19 19:13 Dose: 100 mls/hr Documented by: Potassium Chloride (Klor-Con M10) 40 meq PO NOW STA Stop: 01/11/19 20:38 Code Status & VTE Plan Code Status Full code VTE Prophylaxis Plan VTE Prophylaxis will be ordered: Yes Supervising Physician Co-Signing Physician Notes Patient seen and examined, chart reviewed, case discussed with Dr. Ramsey and I agree to the assessment and plan as documented above. Briefly, patient presenting with pain. He has a history of peripheral arterial disease. On physical exam he is afebrile, hypertensive, otherwise hemodynamically stable. Pleasant in no acute distress Skinwarm, dry, intact, no rashes/lesions HEENTnormocephalic atraumatic, moist mucous membranes, neck supple HeartS1-S2 present, no murmurs rubs or gallops Lungsauscultation. No rales/rhonchi Abdomenno sounds present. Soft, nontender/nondistended Extremitiesleft lower extremity is slightly cooler right. Weakly palpable pulses. Sensation mobility intact Labs and images reviewed. Assessment/plan: 88-year-old male with multiple medical problems most notably diabetes, hypertension, hyperlipidemia, peripheral arterial disease presenting with left lower extremity pain, inability to walk. Doppler of the left lower extremity reveals patent femoral-femoral bypass graft, suggestion of high-grade stenosis in the proximal left superficial femoral as well as likely occlusion of the distal left anterior tibial artery. CK and lactate are within normal limits. Suspect the etiology of discomfort is vascular/ischemic in nature -Admit to medical service -Pain control -Neurovascular checks every 4 hours -Vascular surgery consultation. Appreciate assistance -Management of chronic medical conditions as above PG Care Time/CCT Total # of Minutes Spent Total Time Spent with Patient: Total time spent is greater than 50% in coordination of care (as documented) at patient's floor/unit and/or counseling patient: Resident Activity Tracking Resident Involvement: Resident Care Provided Care Provided: Adult Hospital Medicine
[2019-01-11 21:38] LABS: Creatine Kinase 148 U/L (39-308); Magnesium 1.4 mg/dl (1.8-2.4)
[2019-01-11] MEDS ORDERED: ACETAMINOPHEN 325 MG TAB PO PRN (21:40)
[2019-01-11] MEDS ORDERED: DEXTROSE 50% 50 ML SYRINGE IV PRN (21:40)
[2019-01-11] MEDS ORDERED: METHOCARBAMOL 500 MG TABLET PO PRN (21:40)
[2019-01-11] MEDS ORDERED: CARBOHYDRATES FOR HYPOGLYCEMIA PO PRN (21:40)
[2019-01-11] MEDS ORDERED: GLUCAGON FOR INJ 1 MG VIAL SQ PRN (21:40)
[2019-01-11] MEDS ORDERED: ONDANSETRON INJ 2 MG/ML 2 ML VIAL IV PRN (21:40)
[2019-01-11] MEDS ORDERED: GLUCOSE 10 TABS/TUBE PO PRN (21:40)
[2019-01-11] MEDS ORDERED: GLUCOSE 40% GEL 15 GM TUBE PO PRN (21:40)
[2019-01-11] MEDS ORDERED: MoRPHine SULFATE 2 MG/ML CARP IV PRN (21:40)
[2019-01-11] MEDS: LACTATED RINGER'S 1,000 ML IV SCH (22:08)
[2019-01-11] MEDS: INSULIN ASPART 100 UNITS/ML 3 ML PEN SC SCH (22:17)
[2019-01-11] MEDS: HEPARIN SOD 5,000 UNIT/0.5 ML VIAL SQ SCH (22:19)
[2019-01-11] MEDS: CILOSTAZOL 100 MG TAB PO SCH (22:20)
[2019-01-11] MEDS ORDERED: MAGNESIUM OXIDE 400 MG TAB PO ONE (22:20)
[2019-01-11] MEDS: POTASSIUM CHLORIDE / WTR 10 MEQ/100 ML PLCT IV SCH ×2 (22:20→23:17)
--- NOTE | 2019-01-11 22:38 | Emergency Department Note ---
Entered by Nika Mcguire acting as a scribe for ED Provider Note CHIEF COMPLAINT: Left hip pain HISTORY OF PRESENT ILLNESS: The patient is a 88 year old male who presents to the Emergency Room with complaints of left sided hip pain that began yesterday. The patient states he vomited last night and has been experiencing intermittent nausea. 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 Pt denies LOC, headache, fevers, chills, diaphoresis, visual changes, neck pain, chest pain, breathing difficulties, abdominal pain, back pain, melena, hematochezia, urinary symptoms, numbness, weakness, lymphadenopathy, rash, or other complaints. REVIEW OF SYSTEMS: See HPI for pertinent positives and negatives. A total of ten systems were reviewed and were otherwise negative. PMHx/PSHx: Colon cancer, hypokalemia, depression, BPH, Aneurysm of abdominal aorta, anemia, diabetes mellitus, hypertension, non-small cell lung cancer, PAD, and stage III chronic kidney disease. SOCIAL HISTORY: Patient lives at home. PHYSICAL EXAM: GENERAL: Awake, alert, well-appearing, in no distress HENT: Normocephalic, atraumatic. Oropharynx unremarkable. EYES: PERRL. Normal conjunctiva. Sclera non-icteric. NECK: Inspection normal. Non-tender. Supple. No nuchal rigidity. FROM. No masses . RESPIRATORY: Clear to auscultation. No wheezes. No rales. Normal respiratory effort. CARDIAC: Normal rate. Normal rhythm. No murmurs. No rubs. Extremities warm and well perfused. Pulses equal. No JVD. GI: Soft, non-distended. No tenderness to palpation. No rebound or guarding. No masses. RECTAL: Deferred. MUSCULOSKELETAL: Atraumatic. Chest examination reveals no tenderness. The back is symmetrical on inspection without obvious abnormality. There is no CVA tenderness to palpation. No joint edema. Tenderness in proximal lateral quadriceps on left side. No tenderness over greater trochanter. Normal internal external rotation of left hip. Normal left femoral pulse, no tenderness in area of femoral artery. LOWER EXTREMITIES: Calves are equal size bilaterally and non-tender. No edema. No discoloration. NEURO: Normal sensorium. No sensory or motor deficits noted. SKIN: No rash or jaundice noted. EMERGENCY DEPARTMENT COURSE: 1423: Past medical records reviewed. The patient was evaluated in room B09, and a complete history and physical examination were performed. 184: I spoke with Dr. Thomas about the patient's case and he will accept the patient for further evaluation. MEDICAL DECISION MAKING: B9 Triage Nursing notes reviewed and agree them. Additional history obtained from the family. The patient's history was concerning for pain in the leg. Differential diagnosis: Etiologies such as muscular strain, vascular compromise, DVT, joint effusion, infection, trauma, as well as others were entertained.. Physical examination: The physical examination revealed no signs of infection. Neurovascularly intact. Legs were equal temperature bilaterally. No sign of zoster. ER treatment provided: Oral Tylenol IV potassium and saline hydration Diagnostics interpreted by me: The labs revealed mild anemia on CBC. Significant hypokalemia on chemistry panel noted. No DVT noted. Findings consistent with peripheral artery disease noted but flow to the foot noted. Twelve-lead ECG did reveal frequent wide complexes. No ST elevation. Imaging studies: Venous and arterial ultrasound imaging performed. The patient has significant hypokalemia. He is generally weak. After the patient went through imaging I discussed further management in the hospital. He was treated with IV potassium. Internal medicine was consulted. After the patient was admitted he did have a significant amount of diarrhea. The patient then noted he was having diarrhea for several days. This explains his hypokalemia. IMPRESSION: Left leg pain, hypokalemia, and renal insufficiency. PLAN: Admitted to Dr. Thomas. The scribe's documentation has been prepared under my direction and personally reviewed by me in its entirety. I confirm that the note above accurately reflects all work, treatment, procedures, and medical decision making performed by me. Impression & Plan Left leg pain, Acute hypokalemia, Acute renal insufficiency Past Med/Surg History Medical History Vitamin D deficiency (Chronic) Pulmonary emphysema (Chronic) Lung nodule (Chronic) Hypokalemia (Chronic) Hypomagnesemia (Acute) Depression (Acute) Colon cancer (Chronic) BPH (benign prostatic hyperplasia) (Acute) Aneurysm of abdominal aorta (Chronic) Anemia (Chronic) Acid reflux disease with ulcer (Acute) Carotid artery stenosis (Acute) Diabetes mellitus (Acute) Diabetic neuropathy (Acute) Hyperlipidemia (Acute) Hypertension (Chronic) Non-small cell lung cancer (Acute) Lower & Upper PAD (peripheral artery disease) (Acute) Second degree AV block (Acute) 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 gout (Resolved) Surgical History H/O hernia repair History of AAA (abdominal aortic aneurysm) repair History of appendectomy History of cholecystectomy History of colon surgery History of lung surgery Family History Father COPD (chronic obstructive pulmonary disease) Cancer lung cancer Mother Cancer lung Brother Hypertension COPD (chronic obstructive pulmonary disease) Son Cancer liver Social History Preferred Language: Upper Sorbian Communication Ability: Effective [employer] Salesperson Required: No Beliefs That Will Affect Care: None Current Living Situation: Alone Feels Safe at Home: Yes Safety Concerns: Feels Safe At This Time Smoking Status: Former smoker Cigarettes Per Day: 20 ; Hx Alcohol Use: No Hx Substance Use: No Results & Data Vital Signs Vital Signs - 24 hr 01/11/19 13:54 01/11/19 15:51 01/11/19 19:00 Temperature 36.5 C Temperature Source Oral Sepsis Recent Fever Within 48 Hours No Sepsis New/Unexplained Change in Mental Status No Sepsis Action Taken by Nursing No Action Required Pulse Rate 85 Pulse Rate [Left Finger] 78 82 Pulse Rate from SpO2 Sensor Pulse Rhythm [Left Finger] Regular Regular Pulse Strength [Left Finger] Normal Normal Respiratory Rate 16 17 15 Respiratory Effort / Characteristics Non-Labored Spontaneous Non-Labored Spontaneous Respiratory Depth Normal Normal Respiratory Pattern Regular Regular Blood Pressure 151/97 H Blood Pressure [Left Arm] 176/91 H 162/86 H Blood Pressure Mean 115 Blood Pressure Mean [Left Arm] 119 111 Blood Pressure Position [Left Arm] Lying Lying Pulse Oximetry 98 100 99 Oxygen Delivery Method Room Air Room Air 01/11/19 19:03 01/11/19 19:22 01/11/19 19:30 Temperature Temperature Source Sepsis Recent Fever Within 48 Hours Sepsis New/Unexplained Change in Mental Status Sepsis Action Taken by Nursing Pulse Rate 82 85 93 H Pulse Rate [Left Finger] Pulse Rate from SpO2 Sensor 86 87 90 Pulse Rhythm [Left Finger] Pulse Strength [Left Finger] Respiratory Rate 19 19 15 Respiratory Effort / Characteristics Respiratory Depth Respiratory Pattern Blood Pressure 162/86 H 164/94 H Blood Pressure [Left Arm] Blood Pressure Mean 111 117 Blood Pressure Mean [Left Arm] Blood Pressure Position [Left Arm] Pulse Oximetry 99 98 98 Oxygen Delivery Method 01/11/19 20:00 01/11/19 20:01 01/11/19 20:30 Temperature Temperature Source Sepsis Recent Fever Within 48 Hours Sepsis New/Unexplained Change in Mental Status Sepsis Action Taken by Nursing Pulse Rate 88 85 88 Pulse Rate [Left Finger] Pulse Rate from SpO2 Sensor 87 91 H Pulse Rhythm [Left Finger] Pulse Strength [Left Finger] Respiratory Rate 22 25 H 19 Respiratory Effort / Characteristics Respiratory Depth Respiratory Pattern Blood Pressure 184/84 H Blood Pressure [Left Arm] Blood Pressure Mean 117 Blood Pressure Mean [Left Arm] Blood Pressure Position [Left Arm] Pulse Oximetry 99 98 Oxygen Delivery Method 01/11/19 20:31 Temperature Temperature Source Sepsis Recent Fever Within 48 Hours Sepsis New/Unexplained Change in Mental Status Sepsis Action Taken by Nursing Pulse Rate 91 H Pulse Rate [Left Finger] Pulse Rate from SpO2 Sensor Pulse Rhythm [Left Finger] Pulse Strength [Left Finger] Respiratory Rate 19 Respiratory Effort / Characteristics Respiratory Depth Respiratory Pattern Blood Pressure 168/122 H Blood Pressure [Left Arm] Blood Pressure Mean 137 Blood Pressure Mean [Left Arm] Blood Pressure Position [Left Arm] Pulse Oximetry Oxygen Delivery Method Home Medications Current Medication List: was personally reviewed by me Laboratory Data Attestation: I reviewed the patient's lab results. Result diagrams: 01/11/19 16:24 01/11/19 15:13 Lab Results 01/11/19 01/11/19 01/11/19 Range/Units 15:13 15:13 16:24 WBC Cancelled 8.48 RBC Cancelled 3.83 L Hgb Cancelled 10.4 L Hct Cancelled 31.1 L MCV Cancelled 81.2 MCH Cancelled 27.2 MCHC Cancelled 32.6 RDW Std Deviation Cancelled 51.2 H RDW Coeff of Kelly Cancelled 17.2 H Plt Count Cancelled 142 MPV Cancelled 10.4 Immature Gran % (Auto) Cancelled 0.2 Neut % (Auto) Cancelled 81.2 Lymph % (Auto) Cancelled 7.1 Cassia % (Auto) Cancelled 11.2 Eos % (Auto) Cancelled 0.2 Baso % (Auto) Cancelled 0.1 Immature Gran # (Auto) Cancelled 0.02 Neut # (Auto) Cancelled 6.88 H Lymph # (Auto) Cancelled 0.60 L Cassia # (Auto) Cancelled 0.95 H Eos # (Auto) Cancelled 0.02 Baso # (Auto) Cancelled 0.01 Absolute Nucleated RBC Cancelled Nucleated RBC % (auto) Cancelled Neutrophils % (Manual) Cancelled Band Neutrophils % Cancelled Lymphocytes % (Manual) Cancelled Prolymphocyte % Cancelled Reactive Lymphs % (Man) Cancelled Monocytes % (Manual) Cancelled Eosinophils % (Manual) Cancelled Basophils % (Manual) Cancelled Metamyelocytes % (Man) Cancelled Myelocytes % (Man) Cancelled Promyelocytes % (Man) Cancelled Blast Cells % (Manual) Cancelled Plasma Cell % (Manual) Cancelled Other Cells % Cancelled Nucleated RBC % Cancelled Neutrophils # (Manual) Cancelled Band Neutrophils # Cancelled Total Absolute Neuts Cancelled Lymphocytes # (Manual) Cancelled Prolymphocyte # Cancelled Reactive Lymphs # Cancelled Total Abs Lymphocytes Cancelled Monocytes # (Manual) Cancelled Eosinophils # (Manual) Cancelled Basophils # (Manual) Cancelled Metamyelocytes # (Man) Cancelled Myelocytes # (Manual) Cancelled Promyelocytes # (Man) Cancelled Blast Cells # (Man) Cancelled Plasma Cell # (Manual) Cancelled Other Cells # Cancelled Nucleated RBCs # (Man) Cancelled Hypersegmented Neuts Cancelled Hyposegmented Neuts Cancelled Hypogranular Neuts Cancelled Large Granular Lymphs Cancelled # Lrg Granular Lymphs Cancelled Hairy Cells Cancelled Smudge Cells Cancelled Toxic Granulation Cancelled Toxic Vacuolation Cancelled Dohle Bodies Cancelled Gina Rods Cancelled Platelet Estimate Cancelled Normal Hypogranular Platelets Cancelled Clumped Platelets Cancelled Giant Platelets Cancelled Platelet Satelliting Cancelled RBC Morphology Cancelled Polychromasia Cancelled Hypochromasia Cancelled Poikilocytosis Cancelled Basophilic Stippling Cancelled Anisocytosis Cancelled Microcytosis Cancelled Macrocytosis Cancelled Spherocytes Cancelled Pappenheimer Bodies Cancelled Sickle Cells Cancelled Target Cells Cancelled Tear Drop Cells Cancelled Ovalocytes Cancelled Stomatocytes Cancelled Navarro-Carl Bodies Cancelled Echinocytes Cancelled Acanthocytes (Spur) Cancelled Rouleaux Cancelled RBC Agglutinates Cancelled Schistocytes Cancelled RBC Morph Comment Cancelled Sezary Cell Cancelled Sodium 139 (136-145) mmol/L Potassium 2.5 L* (3.5-5.1) mmol/L Chloride 108 H (98-107) mmol/L Carbon Dioxide 17 L (21-32) mmol/L Anion Gap 14.0 H (3-11) BUN 28 H (7-18) mg/dl Creatinine 2.20 H (0.6-1.4) mg/dl Est Cr Clr Drug Dosing Not Reportable Est GFR ( Amer) 30.1 Est GFR (Non-Af Amer) 26.0 BUN/Creatinine Ratio 12.6 (10-20) Glucose 108 H (70-99) mg/dl Calcium 9.0 (8.5-10.1) mg/dl Magnesium 1.4 L (1.8-2.4) mg/dl Total Bilirubin 0.5 (0.2-1) mg/dl AST 14 L (15-37) U/L ALT 14 (12-78) U/L Alkaline Phosphatase 122 H (45-117) U/L Total Creatine Kinase 148 (39-308) U/L Total Protein 7.0 (6.4-8.2) gm/dl Albumin 3.1 L (3.4-5.0) gm/dl Globulin 3.9 (2.5-4.0) gm/dl Albumin/Globulin Ratio 0.8 L (0.9-2) Administered Medications Cilostazol (Pletal) 100 mg PO BID [facility] Stop: 02/10/19 21:39 Last Admin: 01/11/19 22:20 Dose: 100 mg Documented by: [id number] Heparin Sodium (Porcine) (Heparin Sodium (Porcine)) 5,000 units SQ Q12 [facility] Stop: 02/10/19 21:39 Last Admin: 01/11/19 22:19 Dose: 5,000 units Documented by: [id number] Cosigned by: [id number] Lactated Ringer's (Lr) 1,000 mls @ 80 mls/hr IV .[id number] [facility] Stop: 02/10/19 21:39 Last Admin: 01/11/19 22:08 Dose: 80 mls/hr Documented by: [id number] Potassium Chloride (K Boubacar / Wtr) 10 meq in 100 mls @ 100 mls/hr IV Q1H SHAYY Stop: 01/12/19 02:14 Last Admin: 01/11/19 22:20 Dose: 100 mls/hr Documented by: [id number] Insulin Aspart (Novolog Flexpen) 0 units SC ACHS [facility]AYY Stop: 02/10/19 21:39 Last Admin: 01/11/19 22:17 Dose: Not Given Documented by: [id number] Cosigned by: [id number] Ranitidine HCl (Zantac) 150 mg PO BID [facility] Stop: 02/10/19 21:39 Last Admin: 01/11/19 22:20 Dose: 150 mg Documented by: [id number] Discontinued Medications Acetaminophen (Tylenol) 1,000 mg PO NOW STA Stop: 01/11/19 14:34 Last Admin: 01/11/19 16:44 Dose: 1,000 mg Documented by: [id number] Acetaminophen (Tylenol) Confirm Administered Dose 500 mg .ROUTE .STK-MED ONE Stop: 01/11/19 16:39 Last Admin: 01/11/19 16:45 Dose: Not Given Documented by: [id number] Potassium Chloride (K Boubacar / Wtr) 10 meq in 100 mls @ 100 mls/hr IV ONE ONE Stop: 01/11/19 18:57 Last Infusion: 01/11/19 20:36 Dose: 0 mls/hr Documented by: [id number] Admin: 01/11/19 19:06 Dose: 100 mls/hr Documented by: [id number] Sodium Chloride (Nss 1000ml) 1,000 mls @ 100 mls/hr IV .Q10H STA Stop: 01/12/19 05:07 Last Admin: 01/11/19 19:13 Dose: 100 mls/hr Documented by: [id number] Potassium Chloride (Klor-Con M10) 40 meq PO NOW STA Stop: 01/11/19 20:38 Last Admin: 01/11/19 21:27 Dose: 40 meq Documented by: [id number] Imaging Data Radiologist's Impression: Radiology results as stated below per my review and the radiologist's interpretation: ULTRASOUND LEFT LOWER EXTREMITY ARTERIAL; ANKLE-BRACHIAL INDICES CLINICAL HISTORY: Left thigh pain. COMPARISON STUDY: No priors. TECHNIQUE: Real-time, grayscale, and color Doppler sonography of the arteries of the left lower extremity was performed from the inguinal crease to the foot. Ankle-brachial indices were assessed. FINDINGS: Ankle brachial indices: Left brachial pressure measures 170. Pressures in the right posterior tibial artery measure 143 for an ASUNCION of 0.84, and pressures in the right dorsalis pedis artery measure 120 for an ASUNCION of 0.71. The left posterior tibial artery is noncompressible. Pressures in the left dorsalis pedis artery measure 98 for an ASUNCION 0.58. Left lower extremity: Atherosclerotic plaque and irregularity are seen throughout the arteries of the left lower extremity. The cardiac pulsations appear irregularly irregular. A femorofemoral bypass graft is patent. Triphasic waveforms are seen within the left common femoral artery. The left common femoral artery is patent, with velocities measuring up to 102 cm/s. The profunda femoris artery is patent, with velocities measuring up to 215 cm/s. There are triphasic arterial waveforms seen throughout the superficial femoral artery. There are elevated velocities within the proximal left superficial femoral artery, measuring up to 196 cm/s, suggesting high-grade stenosis. There are biphasic to triphasic waveforms in the mid to distal superficial femoral artery, with velocities measuring up to 103 cm/s. There are biphasic to triphasic waveforms in the popliteal artery, with velocities measuring up to 53 cm/s. There is two-vessel runoff to the foot. Biphasic to triphasic waveforms are seen in the calf vessels. The proximal to mid portions of the anterior tibial artery are patent. The distal anterior tibial artery appears thrombosed. The dorsalis pedis and peroneal arteries appear patent. Velocities within the calf arteries measure up to 66 cm/s. The dorsalis pedis artery is patent, with velocities measuring up to 23 cm/s. IMPRESSION: 1. Ankle-brachial indices as above. 2. A femorofemoral bypass graft is patent. 3. There are focally elevated velocities within the proximal left superficial femoral artery suggesting high-grade stenosis. 4. There is likely occlusion of the distal left anterior tibial artery. Dictated: 01/11/2019 6:12 PM Transcribed: 01/11/2019 6:34 PM Kristal [id number] [email or web address] Electronically signed by: Luther Pardo M.D. 01/11/2019 6:41 PM ULTRASOUND LEFT LOWER EXTREMITY VENOUS CLINICAL HISTORY: Left thigh pain. COMPARISON STUDY: Bilateral lower extremity venous ultrasound dated 07/03/2011. TECHNIQUE: Real-time, grayscale, and color Doppler sonography of the deep veins of the left lower extremity was performed from the inguinal crease to the calf. Compression and augmentation were utilized. FINDINGS: There is no sonographic evidence of deep venous thrombosis identified in the left lower extremity. The common femoral, superficial femoral, and popliteal veins are patent and normally compressible. The greater saphenous vein and the profunda femoris vein at the junction with the common femoral vein are clear. The visualized calf veins are patent. The right common femoral vein as well as the right superficial femoral vein were also assessed and patent. IMPRESSION: There is no sonographic evidence of deep venous thrombosis identified in the left lower extremity. Electronically signed by: Luther Pardo M.D. 01/11/2019 6:12 PM LEFT FEMUR 3 VIEWS CLINICAL HISTORY: Left leg pain. No reported history of trauma. FINDINGS: AP, frog-leg, and lateral views of the left femur are obtained. No prior studies are available for comparison at the time of dictation. The skeletal structures are osteopenic. There is no radiographic evidence of left femoral fracture. The visualized left hemipelvis appears intact. Moderate arthritic change and joint space narrowing is seen in the left hip. Degenerative change is also noted in the left knee. The overlying soft tissues are normal as imaged. Advanced atherosclerotic calcification is seen in the left femoral artery. IMPRESSION: 1. No acute bony abnormality is identified involving the left femur. 2. Osteopenia and degenerative change as above. Electronically signed by: Luther Pardo M.D. 01/11/2019 7:01 PM ECG Data Attestation: I personally reviewed and interpreted this ECG as follows: Indication: other (Left leg pain) Rate (beats per minute): 84 Rhythm: sinus rhythm Findings: + PVC, + RBBB and + left axis deviation Comparison ECG Date: from (10/24/2017) Change: no significant change Blood Pressure Blood Pressure Findings: Elevated blood pressure Blood Pressure Disposition: further management by hospitalist Discharge Plan Visit Data *Final* Discharge Date/Time: 01/11/19 21:27 Chief Complaint: Leg Injury/Pain Stated Complaint: LEFT LEG PAIN ED Provider: Christopher Ac Discharge Problem: Left leg pain, Acute hypokalemia, Acute renal insufficiency Patient Disposition: Admitted As Inpatient Discharge Instructions Interventions: ED Discharge Assessment Last Done: 01/11/19 21:27 The scribe's documentation has been prepared under my direction and personally reviewed by me in its entirety. I confirm that the note above accurately reflects all work, treatment, procedures, and medical decision making performed by me.
[2019-01-12] MEDS: POTASSIUM CHLORIDE / WTR 10 MEQ/100 ML PLCT IV SCH ×2 (00:37→01:34)
[2019-01-12 05:44] LABS: INR 1.2 (0.9-1.1); Prothrombin Time 11.7 Seconds (9.0-12.0)
[2019-01-12 06:07] LABS: BUN Creatinine Ratio 13.6 (10-20); Calcium 8.5 mg/dl (8.5-10.1); Creatinine Clr Calc Pharmacy 28.1 ml/min; Est GFR (African American) 35.7; Est GFR (Non-African American) 30.8; Magnesium 1.2 mg/dl (1.8-2.4); Phosphorus 2.3 mg/dl (2.5-4.9)
[2019-01-12 06:10] LABS: Estimated Average Glucose 137 mg/dl; Hemoglobin A1C 6.4 % (4.5-5.6)
[2019-01-12] MEDS ORDERED: Nursing to Pharmacy Communication ONE ×2 (07:21→11:52)
[2019-01-12] MEDS: INSULIN ASPART 100 UNITS/ML 3 ML PEN SC SCH ×3 (07:24→20:31)
[2019-01-12] MEDS: HEPARIN SOD 5,000 UNIT/0.5 ML VIAL SQ SCH (07:40)
[2019-01-12] MEDS ORDERED: HydrALAZINE HCL 20 MG/ML VIAL IV PRN (08:00)
[2019-01-12] MEDS: LOSARTAN POTASSIUM 50 MG TAB PO SCH (08:00)
[2019-01-12] MEDS: FERROUS SULFATE 325 MG TAB PO SCH (08:02)
[2019-01-12] MEDS: ESCITALOPRAM OXALATE 10 MG TAB PO SCH (08:03)
[2019-01-12] MEDS: ATORVASTATIN 10 MG TAB PO SCH (08:04)
[2019-01-12] MEDS: MAGNESIUM CHLORIDE 64MG DELAYED REL TAB PO SCH (08:06)
[2019-01-12] MEDS: allopurinoL 100 MG TAB PO SCH (08:07)
[2019-01-12] MEDS: ASPIRIN 81 MG ECTAB PO SCH (08:41)
[2019-01-12] MEDS: CILOSTAZOL 100 MG TAB PO SCH ×2 (08:41→20:30)
[2019-01-12] MEDS ORDERED: POTASSIUM CHLORIDE 20 MEQ TABCR PO SCH ×2 (09:00→15:45)
[2019-01-12] MEDS ORDERED: NON-FORMULARY MEDICATION (Dutasteride 0.5 MG) PO SCH (09:00)
[2019-01-12] MEDS: MAGNESIUM SULFATE / D5W 1 GM/100 ML BAG IV SCH ×4 (09:11→17:16)
--- NOTE | 2019-01-12 09:51 | Consultation ---
Date of Consultation January 12, 2019 Assessment & Plan (1) PAD (peripheral artery disease): Pt with hx of EVAR and R -L fem fem BPG, done at [facility] by Dr Gonzalez, presents with acute, constant L thigh pain without radiation. Sx described by pt are inconsistent with any vascular cause. US indicated moderate stenosis of L SFA and acceptable ASUNCION. Pt with non-limiting claudication. No indications for vascular surgical intervention at this time. Recommended pt follow up with his regular vascular surgeon as scheduled, or sooner if pt's claudication worsens. Please call if needed. Patient was seen, examined, and chart reviewed. Agree with exam and treatment plan of the Vascular PA. History of Present Illness Reason for Consultation: PAD, LLE pain Attending Physician: Norman Amin MD History of Present Illness 88 yo m with multiple medical problems, including hx of EVAR with R-L fem fem BPG done at [facility] within the past 2 yrs, HTN, PAD, colon ca, BPH, CKD, DMII, admitted with severe, sudden onset LLE thigh pain , seen in consultation today for PAD. Pt states he walked more than usual when going to his grandson's football game on Saturday evening. Didn't notice any particular injury of the leg at the time. Saturday morning he was doing normal activities at home and then sat down in recliner to watch football all day, from [id number]. When he attempted to get up from the chair, he noted sudden, severe L thigh pain and firmness to his thigh and was unable to ambulate without severe pain. Called his nephew to assist him. Pain was constant, nonradiating, no alleviating factors. Went to bed and continued to have pain upon waking the next morning, so came to [facility] ED yesterday. Pt states pain has since significantly reduced. Denies any associated L foot or lower leg pain, discoloration, edema, or numbness. Denies hx of having angioplasty or stents in legs before. Sees Dr Jama Gonzalez at [facility] regularly, daughter believes next appt is in the Spring. Upon further questioning, pt does relate BL calf claudication at about 60-80 feet of ambulation. Does not feel that this limits his normal daily activites to any extent, only notices this when attempting to ambulate a longer distance. States he ambulates slowly d/t knee problems and arthritis. Deneis FUCHS, fever, chest pain, SOB, abd pain, N/V, rest pain, other complaints. Arterial US demonstrates widely patent fem fem BPG, with moderate stenosis of L SFA distal to anastomosis. Allergies Allergy/AdvReac Type Severity Reaction Status Date / Time amoxicillin Allergy Severe HIVES; Verified 01/11/19 16:12 ANGIOEDEMA lisinopril Allergy Mild HIVES Verified 01/11/19 16:12 Penicillins Allergy Mild HIVES Verified 01/11/19 16:12 Home Medications Home Medications Medication Instructions Recorded Confirmed Type aspirin 81 mg tablet,delayed 81 mg PO DAILY #30 tab 10/02/18 01/11/19 Rx release escitalopram 10 mg tablet 10 mg PO DAILY #30 tab 10/02/18 01/11/19 Rx magnesium 64 mg (magnesium 128 mg PO DAILY #30 tab 10/02/18 01/11/19 Rx chloride) tablet,delayed release allopurinol 100 mg tablet 100 mg PO DAILY #30 tab 10/07/18 01/11/19 Rx atorvastatin 10 mg tablet 10 mg PO DAILY #30 tab 10/07/18 01/11/19 Rx dutasteride 0.5 mg capsule 0.5 mg PO DAILY #90 cap 10/07/18 01/11/19 Rx methocarbamol 500 mg tablet 500 mg PO BID PRN #20 tab 10/07/18 01/11/19 Rx ranitidine 150 mg tablet 150 mg PO BID #60 tab 11/10/18 01/11/19 Rx blood sugar diagnostic strips #10 ea 12/10/18 01/11/19 History lancets 28 gauge #25 ea 12/10/18 01/11/19 History cilostazol 100 mg tablet 100 mg PO BID #60 tab 12/12/18 01/11/19 Rx ferrous sulfate 325 mg (65 mg 325 mg PO DAILY #30 tab 01/05/19 01/11/19 Rx iron) tablet ergocalciferol (vitamin D2) 50,000 units PO MONTHLY 01/11/19 01/11/19 History furosemide 20 mg PO DIRECTED 01/11/19 01/11/19 History losartan 50 mg PO DAILY 01/11/19 01/11/19 History potassium chloride 20 meq PO DAILY 01/11/19 01/11/19 History Patient History Medical History Vitamin D deficiency (Chronic) Pulmonary emphysema (Chronic) Lung nodule (Chronic) Hypokalemia (Chronic) Hypomagnesemia (Acute) Depression (Acute) Colon cancer (Chronic) BPH (benign prostatic hyperplasia) (Acute) Aneurysm of abdominal aorta (Chronic) Anemia (Chronic) Acid reflux disease with ulcer (Acute) Carotid artery stenosis (Acute) Diabetes mellitus (Acute) Diabetic neuropathy (Acute) Hyperlipidemia (Acute) Hypertension (Chronic) Non-small cell lung cancer (Acute) Lower & Upper PAD (peripheral artery disease) (Acute) Second degree AV block (Acute) 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 gout (Resolved) Surgical History H/O hernia repair History of AAA (abdominal aortic aneurysm) repair History of appendectomy History of cholecystectomy History of colon surgery History of lung surgery Family History Father COPD (chronic obstructive pulmonary disease) Cancer lung cancer Mother Cancer lung Brother Hypertension COPD (chronic obstructive pulmonary disease) Son Cancer liver Social History Preferred Language: Macedonian Communication Ability: Effective Entry Level Account Representative Required: No Beliefs That Will Affect Care: None Current Living Situation: Alone Feels Safe at Home: Yes Safety Concerns: Feels Safe At This Time Smoking Status: Former smoker Cigarettes Per Day: 20 ; Hx Alcohol Use: No Hx Substance Use: No Review of Systems Review of Systems: All systems reviewed & are unremarkable except as noted in HPI & below Physical Exam Constitutional: WD/WN, vitals as above well developed, well nourished, + thin, healthy appearing, well groomed, cooperative and comfortable; not in distress and not combative Eyes: PERRL, conjunctivae normal, anicteric sclerae EOM intact bilaterally ENMT: external ear and nose normal, oropharynx normal Ears: + hearing impairment Nose: no nasal discharge Neck: no tracheal deviation, no neck crepitus and neck nontender Respiratory: normal respiratory effort, lungs clear to auscultation able to speak in complete sentences; no cough Auscultation: + diminished lung sounds; no rhonchi and no wheezes Cardiovascular: Rate/Rhythm: regular rate and regular rhythm Heart Sounds: no gallop and no murmur Vessels: + carotid bruit, femoral pulses present, posterior tibial pulses present (Nonpalpabe BLE), dorsalis pedis pulses present (LLE +2, RLE nonpalpable), brachial pulses present and radial pulses present; no femoral bruit and + abnormal peripheral pulses Extremities: normal capillary refill; no edema Gastrointestinal (Abdomen): normal bowel sounds, soft, nontender, no hepatosplenomegaly Inspection/Auscultation: abdomen normal to inspection and normal bowel sounds; abdomen not distended Percussion/Palpation: abdomen soft; abdomen nontender, no guarding, abdomen not rigid and no pulsatile mass Musculoskeletal: no cyanosis or clubbing, extremities motor strength 5/5 Head/Neck/Chest: normocephalic, head atraumatic, neck supple and + abnormal inspection of chest wall; no chest tenderness Extremities: extremities normal to inspection; normal strength Skin: no rashes, warm and dry normal turgor; no lesions, no erythema, no eschar, no mottling and no pallor Neurologic: moves all extremities and awake; no focal motor deficits and not confused Speech / Cognition: no expressive aphasia and no receptive aphasia Motor/Sensory: no tremor Cranial Nerves: EOM intact bilaterally and normal facial strength Gait: not gait assisted Psychiatric: Orientation: alert, oriented x 3 and cooperative Apperance: appropriately dressed, appropriately groomed and appeared stated age Affect: euthymic affect Thought Process: goal directed thought process, linear/logical thought process and clear/coherent thought process Cognition: recent memory grossly intact, remote memory grossly intact, attention grossly intact and language grossly intact Estimated Intelligence: average estimated intelligence Results & Data Vital Signs (Past 12 Hours) Vital Signs Temp Pulse Pulse Resp BP Pulse Ox 01/12/19 07:24 36.5 C 80 17 212/97 H 99 01/12/19 04:32 36.4 C L 80 18 188/79 H 97 01/12/19 00:50 36.7 C 65 19 187/82 H 99 01/12/19 00:32 82 01/11/19 22:05 36.4 C L 84 16 160/68 H 98
[2019-01-12] MEDS ORDERED: INSULIN ASPART 100 UNITS/ML 3 ML PEN SC SCH (12:00)
[2019-01-12] MEDS: LACTATED RINGER'S 1,000 ML IV SCH ×2 (13:16→14:13)
--- NOTE | 2019-01-12 13:50 | CT Scan Report ---
CT OF THE LEFT HIP WITHOUT CONTRAST CLINICAL HISTORY: Left leg pain. Evaluate for fracture. COMPARISON STUDY: PET/CT August 07, 2017. Left femur radiographs January 11, 2019. TECHNIQUE: Axial images of the left hip were obtained without IV contrast. Sagittal and coronal recon structions were viewed. Automated exposure control was utilized for the study. A dose lowering techn ique was utilized adhering to the principles of ALARA. FINDINGS: Alignment of the left hip is anatomic. No acute fracture is noted. No suspicious osseous le allyssa is noted. There is no evidence for avascular necrosis of the left femoral head. There is moderat e joint space narrowing of the left hip with chondrocalcinosis and osteophytosis within the left hip. No hematoma is noted within the adjacent soft tissues. Extensive vascular calcification is present. IMPRESSION: 1. No acute fracture within the left hip. 2. 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 Electronically signed by: Kristian Malone M.D. 01/12/2019 1:49 PM
[2019-01-12] MEDS: MAGNESIUM OXIDE 400 MG TAB PO SCH (20:29)
--- NOTE | 2019-01-12 22:46 | Hospitalist Progress Note ---
Date of Service January 12, 2019 Assessment & Plan (1) Left leg pain: Appears to be hip related on exam. CT hip subsequently negative for fracture but has mod-severe arthritis in this hip therefore suspect this is what is causing his pain after prolonged sitting after walking a lot the previous day at his son's football game. Appears to be improving therefore recommend PT only at this stage and acetaminophen for pain. Despite new diarrhea this does not appear to be related to his leg pain. (2) Diarrhea: FOB -ve on ordered test however on H&P this admission resident noted to be positive. Will continue to trend CBC daily for now. Previously erosive esophagitis and ulcers requiring blood transfusions. Known to GI, last EGD 05/2017. C. diff pending - no recent antibiotic use. (3) Hypokalemia: Suspect secondary to diarrhea Replace as necessary (4) PAD (peripheral artery disease): Agree with vascular consult that symptoms inconsistent with vascular caus e. Moderate stenosis of left SFA to be followed up routinely as outpatient. Continue ASA, Pletal, Atorvastatin (5) Hypertension: Continue losartan. Added hydralazine 10mg IV PRN - if requiring frequently will add on amlodipine SHAYY (6) Chronic anemia: Continue iron supplementation (7) Pulmonary emphysema: No acute exacerbation. Continue home meds (8) Depression: (9) BPH (benign prostatic hyperplasia): Continue dutasteride (10) GERD (gastroesophageal reflux disease): Continue home dose ranitidine (11) Gout: No acute exacerbation. Continue home dose allopurinol. (12) DVT prophylaxis: Ok to resume heparin 5000 IU Q12H. Code - full Dispo - pending PT/OT evals, continued inpatient stay due to significant hypokalemia, hypomagnesemia and ongoing diarrhea. Subjective Patient reports ongoing diarrhea with watery and black stool. His leg pain is improving. Revisited this history with the patient. He reports no previous issues. Pain is on distal left thigh although no pain on palpation of this area. Pain comes on with any hip movement. No pain at rest. Review of Systems Review of Systems: All systems reviewed & are unremarkable except as noted in HPI & below Physical Exam Constitutional: WD/WN, vitals as above healthy appearing and cooperative Eyes: + anicteric sclerae and PERRL ENMT: external ear and nose normal, oropharynx normal Ears: + hearing impairment Neck: trachea midline Respiratory: normal respiratory effort, lungs clear to auscultation Cardiovascular: Rate/Rhythm: regular rate and regular rhythm Heart Sounds: no murmur Extremities: normal capillary refill; no edema Gastrointestinal (Abdomen): Inspection/Auscultation: abdomen normal to inspection and normal bowel sounds; abdomen not distended Percussion/Palpatio n: abdomen soft; abdomen nontender, no guarding and abdomen not rigid Musculoskeletal: Extremities: extremities normal to inspection and + abnormal strength (limited hip motion due to pain) Hip: + log roll test positive (int/ext rotation hip positive for thigh pain, no pain on palpation of thigh); hip normal to inspection, no deformity, no effusion, no skin erythema and no surgical incision Skin: no rashes, warm and dry Neurologic: moves all extremities and awake; no focal motor deficits and not confused Psychiatric: A+Ox3, euthymic affect Results & Data Vital Signs (Past 12 Hours) Vital Signs Temp Pulse Pulse Resp BP BP Pulse Ox 01/12/19 19:27 97.5 F L 57 L 19 163/72 H 98 01/12/19 16:34 95 H 01/12/19 15:55 97.9 F 78 16 123/58 L 98 01/12/19 12:23 97.3 F L 64 14 167/91 H 97 01/12/19 12:00 97.9 F 74 18 151/53 H 99 01/12/19 11:32 72 PG Care Time/CCT Total # of Minutes Spent Total Time Spent with Patient: Total time spent is greater than 50% in coordination of care (as documented) at patient's floor/unit and/or counseling patient:
[2019-01-13 06:54] LABS: BUN Creatinine Ratio 12.1 (10-20); Calcium 8.4 mg/dl (8.5-10.1); Creatinine Clr Calc Pharmacy 24.2 ml/min; Est GFR (Non-African American) 27.6; Magnesium 2.3 mg/dl (1.8-2.4); Potassium 2.8 mmol/L (3.5-5.1)
[2019-01-13] MEDS: POTASSIUM CHLORIDE / WTR 10 MEQ/100 ML PLCT IV SCH ×2 (07:57→10:13)
[2019-01-13] MEDS: POTASSIUM CHLORIDE 20 MEQ TABCR PO SCH ×2 (08:04→20:06)
[2019-01-13] MEDS: FERROUS SULFATE 325 MG TAB PO SCH (08:04)
[2019-01-13] MEDS: MAGNESIUM CHLORIDE 64MG DELAYED REL TAB PO SCH (08:04)
[2019-01-13] MEDS: MAGNESIUM OXIDE 400 MG TAB PO SCH ×2 (08:04→20:07)
[2019-01-13] MEDS: ASPIRIN 81 MG ECTAB PO SCH (08:05)
[2019-01-13] MEDS: allopurinoL 100 MG TAB PO SCH (08:05)
[2019-01-13] MEDS: ATORVASTATIN 10 MG TAB PO SCH (08:05)
[2019-01-13] MEDS: CILOSTAZOL 100 MG TAB PO SCH ×2 (08:05→20:07)
[2019-01-13] MEDS: ESCITALOPRAM OXALATE 10 MG TAB PO SCH (08:05)
[2019-01-13] MEDS: LOSARTAN POTASSIUM 50 MG TAB PO SCH (08:05)
[2019-01-13 08:37] LABS: Basophils # (auto) 0.03 K/uL (0-0.2); Basophils % (auto) 0.4 %; Eosinophils # (auto) 0.14 K/uL (0-0.5); Eosinophils % (auto) 1.9 %; Hematocrit (blood only) 32.8 % (42-52); Hemoglobin 10.9 g/dL (14.0-18.0); Immature Granulocytes # (auto) 0.02 K/uL (0.00-0.02); Immature Granulocytes % (auto) 0.3 %; Lymphocytes % (auto) 10.9 %; Mean Corpuscular Hemoglobin 27.6 pg (25-34); Mean Corpuscular Hgb Conc 33.2 g/dL (32-36); Mean Platelet Volume 11.5 fL (7.4-10.4); Monocytes # (auto) 0.81 K/uL (0.11-0.59); Neutrophils # (auto) 5.54 K/uL (1.4-6.5); Neutrophils % (auto) 75.5 %; Platelet Count 152 K/uL (130-400); RDW Coefficient of Variation 17.3 % (11.5-14.5); RDW Standard Deviation 53.1 fL (36.4-46.3); Red Blood Count 3.95 M/uL (4.7-6.1); White Blood Count 7.34 K/uL (4.8-10.8)
[2019-01-13] MEDS: AMLODIPINE BESYLATE 5 MG TAB PO SCH (09:15)
[2019-01-13] MEDS: INSULIN ASPART 100 UNITS/ML 3 ML PEN SC SCH ×4 (09:16→20:09)
[2019-01-13] MEDS: HEPARIN SOD 5,000 UNIT/0.5 ML VIAL SQ SCH ×2 (09:16→20:06)
--- NOTE | 2019-01-13 18:10 | Hospitalist Progress Note ---
Date of Service January 13, 2019 Assessment & Plan (1) Hip arthritis: Appears to be hip related on exam. CT hip subsequently negative for fracture but has mod-severe arthritis in this hip therefore suspect this is what is causing his pain after prolonged sitting after walking a lot the previous day at his son's football game. Appears to be improving therefore recommend PT only at this stage and acetaminophen for pain. Despite new diarrhea this does not appear to be related to his leg pain. (2) Bifascicular block: Noted on EKG in absence of any prior syncopal events. Recommend referral to cardiology if any unexplained syncope. (3) Paroxysmal SVT (supraventricular tachycardia): Non sustained. Continue to correct electrolytes (K,Mg). Asymptomatic episodes. No further workup required at this time unless lasting > 30 seconds. (4) Diarrhea: FOB -ve on ordered test however on H&P this admission resident noted to be positive. Will continue to trend CBC daily for now. Previously erosive esophagitis and ulcers requiring blood transfusions. Known to GI, last EGD 05/2017. C. diff negative Presumed viral but if continues despite loperamide use will need further workup with CT A/P and possible GI consult Start loperamide 4mg NOW then PRN (5) Hypokalemia: Suspect secondary to diarrhea Replace as necessary (6) PAD (peripheral artery disease): Agree with vascular consult that symptoms inconsistent with vascular cause. Moderate stenosis of left SFA to be followed up routinely as outpatient. Continue ASA, Pletal, Atorvastatin (7) Hypertension: Continue losartan. Added amlodipine 5mg PO daily Continue Added hydralazine 10mg IV PRN (8) Chronic anemia: Continue iron supplementation (9) Pulmonary emphysema: No acute exacerbation. Continue home meds (10) Depression: Continue lexapro (11) BPH (benign prostatic hyperplasia): Continue dutasteride (12) GERD (gastroesophageal reflux disease): Continue home dose ranitidine (13) Gout: No acute exacerbation. Continue home dose allopurinol. (14) DVT prophylaxis: Continue heparin 5000 units SQ Q12H. Code - full Dispo - pending PT/OT evals, continued inpatient stay due to significant hypokalemia and ongoing diarrhea. Subjective Patient reports his groin and femoral pain appear to be improving. Continues to have watery diarrhea. Reports no sick contacts. Diarrhea predates the back pain by a number of days. Has full sensation that BM coming. Denies melena. No abdominal pain, nausea or vomiting. Review of Systems Review of Systems: All systems reviewed & are unremarkable except as noted in HPI & below Physical Exam Constitutional: WD/WN, vitals as above healthy appearing and cooperative Eyes: + anicteric sclerae and PERRL ENMT: external ear and nose normal, oropharynx normal Ears: + hearing impairment Neck: trachea midline Respiratory: normal respiratory effort, lungs clear to auscultation Cardiovascular: Rate/Rhythm: regular rate and regular rhythm Heart Sounds: no murmur Extremities: normal capillary refill; no edema Gastrointestinal (Abdomen): Inspection/Auscultation: abdomen normal to inspection and normal bowel sounds; abdomen not distended Percussion/Palpation: abdomen soft; abdomen nontender, no guarding and abdomen not rigid Musculoskeletal: Extremities: extremities normal to inspection and + abnormal strength (limited hip motion due to pain) Hip: + log roll test positive (int/ext rotation hip positive for thigh pain, no pain on palpation of thigh); hip normal to inspection, no deformity, no effusion, no skin erythema and no surgical incision No central or paraspinal back pain on palpation Skin: no rashes, warm and dry Neurologic: moves all extremities and awake; no focal motor deficits and not confused Psychiatric: A+Ox3, euthymic affect Results & Data Vital Signs (Past 12 Hours) Vital Signs Temp Pulse Pulse Resp BP Pulse Ox 01/13/19 16:00 98.1 F 86 94 H 20 116/52 L 97 01/13/19 11:42 85 01/13/19 07:45 97.7 F 50 L 18 137/52 L 95 PG Care Time/CCT Total # of Minutes Spent Total Time Spent with Patient: Total time spent is greater than 50% in c oordination of care (as documented) at patient's floor/unit and/or counseling patient: (1) BPH (benign prostatic hyperplasia) Lower urinary tract symptom presence: symptoms absent Qualified Code(s): N40.0 - Benign prostatic hyperplasia without lower urinary tract symptoms (2) Depression Depression Type: major depressive disorder Major depression recurrence: unspecified whether recurrent Active/Remission status: in full remission Qualified Code(s): F32.5 - Major depressive disorder, single episode, in full remission (3) Diarrhea Diarrhea type: unspecified type Qualified Code(s): R19.7 - Diarrhea, unspecified (4) Pulmonary emphysema Emphysema type: unspecified Qualified Code(s): J43.9 - Emphysema, unspecified (5) Hypertension Hypertension type: essential hypertension Qualified Code(s): I10 - Essential (primary) hypertension
[2019-01-13] MEDS ORDERED: LOPERAMIDE HCL 2 MG CAP PO PRN (18:20)
[2019-01-13] MEDS ORDERED: LOPERAMIDE HCL 2 MG CAP PO STA (18:21)
[2019-01-14 06:35] LABS: BUN Creatinine Ratio 13.8 (10-20); Calcium 8.4 mg/dl (8.5-10.1); Est GFR (African American) 33.4; Est GFR (Non-African American) 28.8; Magnesium 2.1 mg/dl (1.8-2.4); Potassium 3.3 mmol/L (3.5-5.1)
[2019-01-14 06:42] LABS: Hemoglobin 9.9 g/dL (14.0-18.0); Mean Corpuscular Hemoglobin 26.3 pg (25-34); Mean Corpuscular Hgb Conc 31.9 g/dL (32-36); Mean Corpuscular Volume 82.4 fL (80-100); RDW Coefficient of Variation 17.6 % (11.5-14.5); RDW Standard Deviation 53.6 fL (36.4-46.3); Red Blood Count 3.76 M/uL (4.7-6.1); White Blood Count 5.53 K/uL (4.8-10.8)
[2019-01-14] MEDS ORDERED: POTASSIUM CHLORIDE / WTR 10 MEQ/100 ML PLCT IV ONE (07:39)
[2019-01-14] MEDS: INSULIN ASPART 100 UNITS/ML 3 ML PEN SC SCH ×4 (08:04→20:28)
[2019-01-14] MEDS: MAGNESIUM OXIDE 400 MG TAB PO SCH ×2 (08:06→20:24)
[2019-01-14] MEDS: CILOSTAZOL 100 MG TAB PO SCH ×2 (08:07→20:24)
[2019-01-14] MEDS: FERROUS SULFATE 325 MG TAB PO SCH (08:07)
[2019-01-14] MEDS: allopurinoL 100 MG TAB PO SCH (08:07)
[2019-01-14] MEDS: ESCITALOPRAM OXALATE 10 MG TAB PO SCH (08:07)
[2019-01-14] MEDS: POTASSIUM CHLORIDE 20 MEQ TABCR PO SCH ×2 (08:07→20:25)
[2019-01-14] MEDS: ATORVASTATIN 10 MG TAB PO SCH (08:07)
[2019-01-14] MEDS: ASPIRIN 81 MG ECTAB PO SCH (08:07)
[2019-01-14] MEDS: AMLODIPINE BESYLATE 5 MG TAB PO SCH (08:07)
[2019-01-14] MEDS: LOSARTAN POTASSIUM 50 MG TAB PO SCH (08:07)
[2019-01-14] MEDS: MAGNESIUM CHLORIDE 64MG DELAYED REL TAB PO SCH (08:07)
[2019-01-14] MEDS: HEPARIN SOD 5,000 UNIT/0.5 ML VIAL SQ SCH ×2 (09:23→20:24)
--- NOTE | 2019-01-14 15:21 | CT Scan Report ---
CT lumbar spine wo con CT DOSE: 695.46 mGy.cm CLINICAL HISTORY: Bilateral foot drop. Colon carcinoma. TECHNIQUE: Helical images were acquired in transverse plane. Reformatted sagittal and coronal images were reviewed. A dose lowering technique was utilized adhering to the principles of ALARA. CONTRAST: No contrast was administered COMPARISON STUDY: None. FINDINGS: Incidental note is made of an abdominal aortic aneurysm status post aortoiliac stent graft repair. Th ere are advanced atheromatous changes present within the left common iliac artery. There are extensiv e atheromatous calcifications involving the renal artery origins. L1-2 level: There is a disc bulge/protrusion, asymmetric laterally on the left. There is mild spinal canal narrowing, and mild left foraminal narrowing L2-3 level: There is a moderate circumferential disc bulge, asymmetric left laterally.. There is mode rate spinal stenosis. L3-4 level: There is again evidence for left lateral disc bulge/protrusion. There is moderate spinal canal narrowing. There is no minimal subcutaneous foraminal narrowing on the left. L4-5 level: There is a circumferential disc bulge. There is moderate to severe spinal stenosis. There is mild bilateral foraminal narrowing. L5-S1 level: There is a circumferential disc bulge. There is mild left-sided foraminal narrowing. The re is no significant spinal stenosis. No destructive changes are visualized on CT scanning. There are no acute fractures or traumatic subluxations. IMPRESSION: 1. Moderately advanced multilevel spondylytic changes with multilevel spinal stenosis. 2. No acute fractures or traumatic subluxations 3. No destructive lesions are visualized on CT scanning Electronically signed by: Jorge Quintana M.D. 01/14/2019 3:20 PM
--- NOTE | 2019-01-14 22:00 | Hospitalist Progress Note ---
Date of Service January 14, 2019 Assessment & Plan (1) Foot drop, bilateral: Initially reported as subacute and progressive over last few months, given possibility this could have led to his hip pain and ambulatory dysfunction and history of lung and colon cancer he underwent CT L-spine to r/o malignant vertebral involvement causing spinal cord compression. Only chronic degenerative changes noted with some mod-severe spinal stenosis. On re-evaluation after CT patient reported the foot drop has been present for years but he is unsure as to the etiology. Suspect peripheral neuropathy from diabetes vs spinal stenosis but given chronicity certainly doesn't need further inpatient workup (no mention of foot drop on primary care notes on [facility]). He does note needing new foot drop braces which should help his rehabilitation from his hip which we will attempt prior. Since he lives alone and his history of present illness has been scattered at best I do not believe a discharge home would have been safe therefore will discharge in the morning as long as potassium stable and history confirmed with his son. (2) Hip arthritis: acetaminophen, PT (3) Bifascicular block: Noted on EKG in absence of any prior syncopal events. Recommend referral to cardiology if any unexplained syncope. (4) Paroxysmal SVT (supraventricular tachycardia): Non sustained. Continue to correct electrolytes (K,Mg). Asymptomatic episodes. No further workup required at this time unless lasting > 30 seconds. (5) Diarrhea: FOB -ve C. diff negative Start loperamide 2mg PRN Unclear etiology but he now reports this has been on and off for years. Normal colonoscopy in May 2017 after GI bleeding episode (suspect from esophageal ulcers). Patient just remembers a physician saying he should take metamucil. Given chronicity no need for inpatient further workup as long as potassium stable. Recommend referral to GI as outpatient if not previous adequately worked up. (6) Hypokalemia: Suspect secondary to diarrhea Replace as necessary (7) PAD (peripheral artery disease): Moderate stenosis of left SFA to be followed up routinely as outpatient. Continue ASA, Pletal, Atorvastatin (8) Hypertension: Continue losartan. Added amlodipine 5mg PO daily Continue as needed hydralazine 10mg IV PRN (9) Chronic anemia: Iron def. on recent labs from nephrology Continue recently started iron supplementation (10) Pulmonary emphysema: No acute exacerbation. Continue home meds (11) Depression: Continue lexapro (12) BPH (benign prostatic hyperplasia): Continue dutasteride (13) GERD (gastroesophageal reflux disease): Continue home dose ranitidine (14) Gout: No acute exacerbation. Continue home dose allopurinol. (15) DVT prophylaxis: Continue heparin 5000 units SQ Q12H. Code - full Dispo - plan for discharge home as per patient wishes Subjective Patient reports his groin and femoral pain appear to be improving. Continues to have watery diarrhea. Reports no the diarrhea has been on and off for over a year lasting for around 2 weeks at a time. He is unsure what the cause of this is or any prior workup. Denies melena. No abdominal pain, nausea or vomiting. Foot drop noted on PT eval. Pt reports this has been subacute over the last few months. Initially denied any prior workup or mentioning it to any previous healthcare provider. Denies back pain or perianal numbness. Review of Systems Review of Systems: All systems reviewed & are unremarkable except as noted in HPI & below Physical Exam Constitutional: WD/WN, vitals as above ENMT: external ear and nose normal, oropharynx normal Ears: + hearing impairment Neck: trachea midline Respiratory: normal respiratory effort, lungs clear to auscultation Cardiovascular: Rate/Rhythm: regular rate and regular rhythm Heart Sounds: no murmur Extremities: normal capillary refill; no edema Gastrointestinal (Abdomen): Inspection/Auscultation: abdomen normal to inspection and normal bowel sounds; abdomen not distended Percussion/Palpation: abdomen soft and + hernia (surgical incisional, non tender); abdomen nontender, no guarding and abdomen not rigid Musculoskeletal: Extremities: extremities normal to inspection Hip: + log roll test positive (minimal, much improved groin pain); hip normal to inspection Skin: no rashes, warm and dry Neurologic: moves all extremities, + focal motor deficit (L>R extensive foot drop) and awake; not confused Psychiatric: A+Ox3, euthymic affect Results & Data Vital Signs (Past 12 Hours) Vital Signs Temp Pulse Pulse Resp BP Pulse Ox 01/14/19 19:26 98.2 F 78 18 165/74 H 98 01/14/19 16:50 98 H 01/14/19 15:19 97.3 F L 90 19 146/65 H 90 01/14/19 11:39 97.7 F 76 18 102/66 98 PG Care Time/CCT Total # of Minutes Spent Total Time Spent with Patient: Total time spent is greater than 50% in coordination of care (as documented) at patient's floor/unit and/or counseling patient: (1) Diarrhea Diarrhea type: unspecified type Qualified Code(s): R19.7 - Diarrhea, unspecified (2) Hypertension Hypertension type: essential hypertension Qualified Code(s): I10 - Essential (primary) hypertension (3) Pulmonary emphysema Emphysema type: unspecified Qualified Code(s): J43.9 - Emphysema, unspecified (4) Depression Depression Type: major depressive disorder Major depression recurrence: unspecified whether recurrent Active/Remission status: in full remission Qualified Code(s): F32.5 - Major depressive disorder, single episode, in full remission (5) BPH (benign prostatic hyperplasia) Lower urinary tract symptom presence: symptoms absent Qualified Code(s): N40.0 - Benign prostatic hyperplasia without lower urinary tract symptoms
[2019-01-15 07:19] LABS: BUN Creatinine Ratio 17.5 (10-20); Calcium 8.7 mg/dl (8.5-10.1); Est GFR (African American) 32.4; Magnesium 2.2 mg/dl (1.8-2.4); Potassium 3.8 mmol/L (3.5-5.1)
[2019-01-15] MEDS: INSULIN ASPART 100 UNITS/ML 3 ML PEN SC SCH ×2 (08:31→12:37)
[2019-01-15] MEDS: ATORVASTATIN 10 MG TAB PO SCH (08:31)
[2019-01-15] MEDS: AMLODIPINE BESYLATE 5 MG TAB PO SCH (08:31)
[2019-01-15] MEDS: LOSARTAN POTASSIUM 50 MG TAB PO SCH (08:31)
[2019-01-15] MEDS: POTASSIUM CHLORIDE 20 MEQ TABCR PO SCH (08:31)
[2019-01-15] MEDS: allopurinoL 100 MG TAB PO SCH (08:31)
[2019-01-15] MEDS: ESCITALOPRAM OXALATE 10 MG TAB PO SCH (08:31)
[2019-01-15] MEDS: HEPARIN SOD 5,000 UNIT/0.5 ML VIAL SQ SCH (08:31)
[2019-01-15] MEDS: MAGNESIUM CHLORIDE 64MG DELAYED REL TAB PO SCH (08:32)
[2019-01-15] MEDS: MAGNESIUM OXIDE 400 MG TAB PO SCH (08:32)
[2019-01-15] MEDS: FERROUS SULFATE 325 MG TAB PO SCH (08:32)
[2019-01-15] MEDS: ASPIRIN 81 MG ECTAB PO SCH (08:32)
[2019-01-15] MEDS: CILOSTAZOL 100 MG TAB PO SCH (08:32)
[2019-01-15] MEDS ORDERED: DUTASTERIDE 0.5MG PO SCH (11:00)
--- NOTE | 2019-01-20 14:18 | Discharge Summary ---
Date of Service January 15, 2019 Admission HPI Per Admitting Provider 88-year-old male is accompanied by his son requesting evaluation of acute left thigh regional pain. Patient says that he was watching football yesterday (28Sep) afternoon when, attempting to stand, he felt acute left thigh pain. This significantly limited his ability to stand such that he was barely able to walk with his walker. He tends to resolve when he would sit back down but immediately returned with any attempted exertion. Patient denies history of the same, so ended up not taking any medicines and hoped it would resolve on its own. He woke this morning with some rest pain, different than yesterday. Continues to feel worse with any level of movement. Denies any actual hip, knee, or distal leg pain, numbness, or swelling. No known falls or trauma. Denies fevers or constitutional symptoms. Denies any similar complaints in the right leg or other extremities. He notes he has a history of peripheral artery disease and underwent surgical correction for this years ago. He says he is followed by Dr. Yun of vascular surgery annually. Patient denies any other acute concerns. - Past medical history includes hypertension, chronic anemia, DM 2, colon cancer, non-small cell lung cancer, pulmonary emphysema, depression, BPH, GERD, gout, peripheral artery disease, CKD stage III, hypokalemia, hypomagnesemia. - Past surgical history includes AAA repair, appendectomy, cholecystectomy, colon resection, lung lobectomy, hernia repair. - Social history includes former smoker. Lives at home with family nearby. Admission Exam Per Admitting Provider GENERAL: Awake, alert, well-appearing, in no acute distress HENT: Normocephalic, atraumatic. Oropharynx unremarkable. EYES: Normal conjunctiva. Sclera non-icteric. NECK: Inspection normal. Non-tender. Supple and full ROM. No nuchal rigidity. CARDIAC: +S1S2 RRR, no murmurs. RESPIRATORY: Clear to auscultation. No wheezes or rales. Normal respiratory effort. GI: +BS, soft, non-distended. No tenderness to palpation. No rebound or guarding. Well-healed abdominal surgical scars. EXTREMITIES: No pedal edema or calf tenderness. -The left lower extremity is cool to touch. Positive posterior tibial pulse. Patient can wiggle his toes but has difficulty with dorsi or plantarflexion. Cannot lift his leg off the bed. - Right lower extremity is warm to touch. Positive posterior tibial pulse. No difficulty with foot or leg movement. NEURO: No gross neuro deficits. Principal Diagnosis Left hip arthritis Hypokalemia (low potassium) Hypomagnesemia (low magnesium) Bilateral foot drop causing ambulatory dysfunction Bifascicular block Non-sustained SVTs Discharge Exam Constitutional WD/WN, vitals as above healthy appearing and cooperative Eyes + anicteric sclerae and PERRL ENMT external ear and nose normal, oropharynx normal Ears: + hearing impairment Neck trachea midline Respiratory normal respiratory effort, lungs clear to auscultation Cardiovascular Rate/Rhythm: regular rate and regular rhythm Heart Sounds: no murmur Extremities: normal capillary refill; no edema Gastrointestinal (Abdomen) Inspection/Auscultation: abdomen normal to inspection and normal bowel sounds; abdomen not distended Percussion/Palpation: abdomen soft; abdomen nontender, no guarding and abdomen not rigid Musculoskeletal Extremities: extremities normal to inspection Hip: + log roll test positive (minimal, much improved groin pain); hip normal to inspection Skin no rashes, warm and dry Neurologic moves all extremities, + focal motor deficit (L>R foot drop) and awake; not confused Psychiatric A+Ox3, euthymic affect Discharge Data Allergies Allergy/AdvReac Type Severity Reaction Status Date / Time amoxicillin Allergy Severe HIVES; Verified 01/11/19 16:12 ANGIOEDEMA lisinopril Allergy Mild HIVES Verified 01/11/19 16:12 Penicillins Allergy Mild HIVES Verified 01/11/19 16:12 Consultations 01/11/19 18:52 ED Decision to Admit Stat 01/11/19 21:40 Consult Vascular Surgery Routine Ordered Studies 01/11/19 14:33 US arterial duplex LE LT Stat US venous doppler LE LT Stat 01/12/19 12:56 CT hip LT wo con Stat 01/14/19 13:37 CT lumbar spine wo con Routine Hospital Course (1) Hip arthritis: Suspected cause of left groin/leg pain. Offered at home physical therapy but declined at this time. Continue acetaminophen PRN for pain relief. (2) Foot drop, bilateral: Chronic. New orthotics provided to patient. He is to call for customs made orthotics as outpatient as needed. Unclear etiology but given stocking distribution numbness suspect neuropathy from diabetes. No prior EMG/NCS found - consider outpatient workup if not previously performed and diagnosis in question or progressive. (3) Bifascicular block: Noted on EKG in absence of any prior syncopal events. Recommend referral to cardiology if has unexplained syncopal events (4) Paroxysmal SVT (supraventricular tachycardia): Non sustained. Continue to correct electrolytes (K,Mg). Asymptomatic episodes. No further workup required at this time unless lasting > 30 seconds. (5) Diarrhea: FOB -ve C. diff negative Start loperamide 2mg PRN Reports on and off for years however worse over last few weeks likely explains his electrolyte abnormalities. Consider GI outpatient referral if not previously fully worked up. (6) Hypokalemia: Suspect secondary to diarrhea Increased both magnesium and potassium outpatient supplementation (7) PAD (peripheral artery disease): Moderate stenosis of left SFA to be followed up routinely as outpatient. Not cause of his leg pain Continue ASA, Pletal, Atorvastatin (8) Hypertension: Continue losartan. Added amlodipine 5mg PO daily as uncontrolled while here Continue as needed hydralazine 10mg IV PRN (9) Chronic anemia: Iron def. on recent labs from nephrology Continue recently started iron supplementation (10) Pulmonary emphysema: No acute exacerbation. Continue home meds (11) Depression: Continue lexapro (12) BPH (benign prostatic hyperplasia): Continue dutasteride (13) GERD (gastroesophageal reflux disease): Continue home dose ranitidine (14) Gout: No acute exacerbation. Continue home dose allopurinol. Total Time Total Time Spent Total Time Spent (In Minutes): 50 Total Time Includes: Examination of the Patient, Discharge Planning and Medication Reconciliation Discharge Plan Discharge Items Patient Disposition: Home - Self-Care Reason For Visit: LEG PAIN, HYPOKALEMIA Discharge Diagnosis: Left hip arthritis Hypokalemia (low potassium) Hypomagnesemia (low magnesium) Bilateral foot drop causing ambulatory dysfunction Bifascicular block Non-sustained SVTs Activity: Resume your previous activity Non-emergency contact: Primary Care Provider Call non-emergency contact if: you have any medication questions and your symptoms worsen Follow-up/Referrals: Dallas Jacobo MD [Primary Care Provider] - 01/22/19 10:00 am (Please, follow up at [facility] with Dr. Jacobo on January 22 at 10:00 am. *If you need to change this appointment, call the office at [phone].) Diet: Regular Addtl Attending Provider Instructions: You were admitted for left groin and thigh pain. Imaging revealed left hip moderate-severe arthritis and examination was consistent with this and suspect this was the cause of your pain. Given your improvement back to baseline no further physical therapy was felt necessary at this stage. With regards to your bilateral foot drop. You were fitted with ankle foot orthosis. Information given separately to obtain custom orthotics. Recommend following up with your PCP regarding further workup for this if necessary. Recommend discussing ongoing intermittent diarrhea with your primary care provider to assess need for further workup if felt necessary. This was felt to be the cause of your low potassium and magnesium levels and supplementation has been increased. If you diarrhea clears up you may no longer need these supplements and recommend contacting your PCP if this is the case. Hypertension - given ongoing high blood pressure amlodipine was started to help manage this. Recommend following up with your PCP regarding whether this is needed longer term. Pending Studies at Discharge: No Stand-Alone Forms: [facility] Medications and DC Order Prescriptions: New amlodipine [Norvasc] 5 mg Tablet 5 mg PO QAM Qty: 30 RF: 0 potassium chloride 20 mEq tablet extended release 20 meq PO BID Qty: 60 RF: 0 Continued ranitidine HCl 150 mg tablet 150 mg PO BID Qty: 60 RF: 5 cilostazol 100 mg tablet 100 mg PO BID Qty: 60 RF: 3 True Metrix Glucose Test Strip strip .ROUTE .MEDSUPPLY Qty: 10 RF: 0 lancets [Lite Touch Lancets] 28 gauge misc .ROUTE .MEDSUPPLY Qty: 25 RF: 0 ferrous sulfate 325 mg (65 mg iron) tablet 325 mg PO DAILY Qty: 30 RF: 5 aspirin [Adult Low Dose Aspirin] 81 mg tablet,delayed release (DR/EC) 81 mg PO DAILY Qty: 30 RF: 2 escitalopram oxalate 10 mg tablet 10 mg PO DAILY Qty: 30 RF: 2 allopurinol 100 mg tablet 100 mg PO DAILY Qty: 30 RF: 0 atorvastatin 10 mg tablet 10 mg PO DAILY Qty: 30 RF: 0 dutasteride 0.5 mg capsule 0.5 mg PO DAILY Qty: 90 RF: 0 methocarbamol 500 mg tablet 500 mg PO BID PRN (Reason: shoulder strain) Qty: 20 RF: 0 losartan 50 mg tablet 50 mg PO DAILY RF: 0 furosemide 20 mg tablet 20 mg PO DIRECTED RF: 0 ergocalciferol (vitamin D2) 50,000 unit capsule 50,000 units PO MONTHLY RF: 0 Changed magnesium chloride 64 mg tablet,delayed release (DR/EC) 256 mg PO DAILY Qty: 120 RF: 0 Discontinued potassium chloride 20 mEq tablet extended release 20 meq PO DAILY RF: 0 Discharge Orders: Discharge Order (Routine); Ordered 01/15/19 Ordered By: Norman Amin Admission Data Admit Date/Time: 01/11/19 20:50 Attending Provider: Norman Amin Admit Provider: Lenny Ramsey Primary Care Provider: Dallas Jacobo Other Providers: Norman Thomas Eugene J Other Interventions: Discharge Summary Assessment (RN) Last Done: 01/15/19 16:55 DC Date/Time DO NOT enter until pt leaves facility: 01/15/19 17:30
[2019-01-24] MEDS ORDERED: ERGOCALCIFEROL 50,000 UNITS CAP PO SCH (09:00)
== END 2019-01-15 17:30 | disposition home or self-care (01) | DRG 554 ==
LOC: ED 13:50 → 2N 20:50 → SUATTDRO 20:50 → 2N 21:27

== ENCOUNTER 2019-01-27 19:42 | Inpatient (IN) ==
[2019-01-27 20:09] LABS: Mean Corpuscular Hgb Conc 31.5 g/dL (32-36)
[2019-01-27 20:25] LABS: Alanine Aminotransferase 28 U/L (12-78); Albumin Level 3.6 gm/dl (3.4-5.0); Aspartate Aminotransferase 18 U/L (15-37); BUN Creatinine Ratio 12.6 (10-20); Blood Urea Nitrogen 31 mg/dl (7-18); Calcium 9.3 mg/dl (8.5-10.1); Carbon Dioxide 16 mmol/L (21-32); Chloride 111 mmol/L (98-107); Creatinine Clr Calc Pharmacy 21.1 ml/min; Est GFR (African American) 26.2; Est GFR (Non-African American) 22.6; Glucose 98 mg/dl (70-99); Lipase 316 U/L (73-393); Potassium 4.8 mmol/L (3.5-5.1); Sodium 136 mmol/L (136-145)
[2019-01-27 20:30] LABS: Albumin Globulin Ratio 0.9 (0.9-2); Alkaline Phosphatase 157 U/L (45-117); Bilirubin,Total 0.3 mg/dl (0.2-1); Total Protein 7.6 gm/dl (6.4-8.2); Troponin I < 0.015 ng/ml (0-0.045)
--- NOTE | 2019-01-27 20:35 | XRay Report ---
XR chest 1V portable HISTORY: 89 years-old Male Chest Pain acute atypical chest pain COMPARISON: Chest radiograph 10/24/2017, chest CT 10/08/2018 TECHNIQUE: Portable AP view of the chest FINDINGS: Cardiac silhouette is enlarged, unchanged. Postoperative changes of the right hemithorax redemonstrat ed with chronic blunting of the right costophrenic angle. Unchanged hazy right midlung and right basi lar densities. No pneumothorax. No overt pulmonary edema. The left lung appears clear. Vascular graft of the upper abdomen is partially imaged. Degenerative changes of the shoulders and spine. IMPRESSION: 1. No acute process. 2. Postoperative changes of the right hemithorax redemonstrated with unchanged small right pleural ef fusion and chronic right lung base scarring. The above report was generated using voice recognition software. It may contain grammatical, syntax o r spelling errors. Electronically signed by: Lenny Jarvis M.D. 01/27/2019 8:33 PM
[2019-01-27 20:42] LABS: ALC (manual) 0.33 K/uL (1.2-3.4); Acanthocytes 1+; Basophils # (manual) 0.06 K/uL (0-0.2); Basophils % (manual) 0.9 %; Echinocytes 1+; Hematocrit (blood only) 37.4 % (42-52); Hemoglobin 11.6 g/dL (14.0-18.0); Lymphocytes # (manual) 0.33 K/uL (1.2-3.4); Lymphocytes % (manual) 5.3 %; Mean Corpuscular Hemoglobin 27.2 pg (25-34); Mean Corpuscular Volume 87.8 fL (80-100); Monocytes # (manual) 0.49 K/uL (0.11-0.59); Monocytes % (manual) 7.9 %; Neutrophils % (manual) 85.9 %; Platelet Count 108 K/uL (130-400); Platelet Estimate Decreased (Normal); RDW Coefficient of Variation 17.9 % (11.5-14.5); RDW Standard Deviation 57.5 fL (36.4-46.3); Red Blood Count 4.26 M/uL (4.7-6.1); White Blood Count 6.17 K/uL (4.8-10.8)
[2019-01-27 22:08] LABS: Base Excess VBG -10.7 mEq/L; Oxygen Saturation VBG 68.7 %; pH VBG 7.29 (7.36-7.41)
--- NOTE | 2019-01-27 23:15 | History & Physical Report ---
Date of Service January 27, 2019 Assessment & Plan (1) Precordial chest pain: Patient developed precordial chest pain while at rest, with total duration of about 2 hours. He did receive 4 baby aspirin in route to the ED, but is unsure if they improved his symptoms or the time it just gone by. Continue aspirin 81 mg daily amlodipine 5 mg daily and losartan 50 mg daily. Hold furosemide. Present on Admission?: Yes (2) Paroxysmal SVT (supraventricular tachycardia): He is not aware of any palpitations, and heart rate is controlled and appears to be at baseline while in the ED. Present on Admission?: Yes (3) GERD (gastroesophageal reflux disease): Change ranitidine to famotidine per formulary interchange Present on Admission?: Yes (4) Hypertension: As above. Present on Admission?: Yes (5) Hyperlipidemia: Continue atorvastatin 10 mg p.o. daily Present on Admission?: Yes (6) PAD (peripheral artery disease): Continue Cilostazol 100 mg p.o. twice daily and aspirin 81 mg daily Present on Admission?: Yes (7) Stage III chronic kidney disease: Creatinine on admission is 2.45. Normal range is 1.55-2.20 Repeat laboratories in a.m. If worse, hold losartan and placed on IV fluids. Present on Admission?: Yes (8) Depression: Continue escitalopram 10 mg p.o. daily. Present on Admission?: Yes (9) BPH (benign prostatic hyperplasia): Continue dutasteride 0.5 mg p.o. daily Present on Admission?: Yes History of Present Illness Chief Complaint: The patient presents to the emergency department with an episode of precordial chest pain, that began at rest with non-radiation. Primary Care Provider: Dallas Jacobo MD The patient is an 89-year-old male with a past medical history including peripheral arterial disease, hypertension, GERD, gout, stage III chronic kidney disease and depression, who presents to the emergency department with complaint of precordial chest pain, that went across his chest. Patient reports that the pain began at rest, and was relieved by the time he arrived to the emergency department. He had received 4 baby aspirin in route given by EMS. He has no associated shortness of breath. He denies any recent travels or sick exposures. He has not had this type pain in the past. Allergies Allergy/AdvReac Type Severity Reaction Status Date / Time amoxicillin Allergy Severe HIVES; Verified 01/27/19 22:48 ANGIOEDEMA lisinopril Allergy Mild HIVES Verified 01/27/19 22:48 Penicillins Allergy Mild HIVES Verified 01/27/19 22:48 Home Medications Home Medications Medication Instructions Recorded Confirmed Type aspirin 81 mg tablet,delayed 81 mg PO DAILY #30 tab 10/02/18 01/27/19 Rx release escitalopram 10 mg tablet 10 mg PO DAILY #30 tab 10/02/18 01/27/19 Rx allopurinol 100 mg tablet 100 mg PO DAILY #30 tab 10/07/18 01/27/19 Rx atorvastatin 10 mg tablet 10 mg PO DAILY #30 tab 10/07/18 01/27/19 Rx dutasteride 0.5 mg capsule 0.5 mg PO DAILY #90 cap 10/07/18 01/27/19 Rx ranitidine 150 mg tablet 150 mg PO BID #60 tab 11/10/18 01/27/19 Rx cilostazol 100 mg tablet 100 mg PO BID #60 tab 12/12/18 01/27/19 Rx ferrous sulfate 325 mg (65 mg 325 mg PO DAILY #30 tab 01/05/19 01/27/19 Rx iron) tablet ergocalciferol (vitamin D2) 50,000 units PO MONTHLY 01/11/19 01/27/19 History furosemide 20 mg PO 2XWK 01/11/19 01/27/19 History losartan 50 mg PO DAILY 01/11/19 01/27/19 History amlodipine [Norvasc] 5 mg PO QAM #30 tab 01/15/19 01/27/19 Rx magnesium chloride 256 mg PO DAILY #120 tab 01/15/19 01/27/19 Rx potassium chloride 20 meq PO BID #60 tab 01/15/19 01/27/19 Rx Past Med/Surg History Medical History Hypokalemia (Chronic) Hypomagnesemia (Acute) Depression (Acute) Colon cancer (Chronic) BPH (benign prostatic hyperplasia) (Acute) Aneurysm of abdominal aorta (Chronic) Carotid artery stenosis (Acute) Diabetes mellitus (Acute) Diabetic neuropathy (Acute) Hyperlipidemia (Acute) Hypertension (Chronic) Non-small cell lung cancer (Acute) Lower & Upper PAD (peripheral artery disease) (Acute) Second degree AV block (Acute) 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 gout (Resolved) Acid reflux disease with ulcer (Inactive) Anemia (Inactive) Lung nodule (Inactive) Pulmonary emphysema (Inactive) Vitamin D deficiency (Inactive) Surgical History H/O hernia repair History of AAA (abdominal aortic aneurysm) repair History of appendectomy History of cholecystectomy History of colon surgery History of lung surgery Social History Preferred Language: Slovenian Communication Ability: Effective Telephone Collector Required: No Beliefs That Will Affect Care: None Current Living Situation: Alone Feels Safe at Home: Yes Safety Concerns: Feels Safe At This Time Smoking Status: Former smoker Cigarettes Per Day: 20 ; Hx Alcohol Use: No Hx Substance Use: No Review of Systems Review of Systems: The patient denies palpitations, shortness of breath, dyspnea on exertion, cough, lower extremity swelling, sore throat, fevers, chills, sweats, fatigue, nausea, vomiting, diarrhea , c onstipation, abdominal pain, pelvic pain, blood in urine or stool, dysuria, urinary frequency or urgency, lightheadedness, dizziness, headache, loss of consciousness, rash, abnormal bruising or bleed ing, imbalance, focal or generalized weakness, numbness or tingling in arms or legs, generalized arthralgias or myalgias, back or neck pain, or night sweats. The review of systems is otherwise negative other than for that already noted above, and at least 10 systems have been reviewed. Physical Exam Physical Exam: The patient is awake, alert and oriented 3, well developed and well nourished, normocephalic and atraumatic, lying in bed and in no acute distress. HEENT--PERRL, EOMI, mucous membranes and oropharynx normal. Neck--supple. No JVD. No bruits. Thyroid normal, trachea midline, no adenopathy. Heart--normal S1 and S2. No murmurs, rubs or gallops. Lungs--clear bilaterally, no respiratory distress, no accessory muscle use. Abdomen--normal bowel sounds and soft. Nontender. Nondistended. Extremities--no cyanosis or clubbing. No edema. There are good distal pulses b/l. Dermatologic--normal skin turgor, normal color, no abnormal lymph nodes, no rash. Neurologic--cranial nerves II through XII grossly intact. Rheumatologic--normal range of motion. Psychiatric--normal affect. Results & Data Vital Signs (Past 12 Hours) Vital Signs Temp Pulse Resp BP Pulse Ox 01/27/19 21:30 76 16 98 01/27/19 21:03 94 H 20 95 01/27/19 20:40 78 14 97 01/27/19 20:00 71 16 156/64 H 98 01/27/19 19:58 79 18 99 01/27/19 19:52 98.1 F 79 18 168/78 H 99 Laboratory Results Laboratory Results WBC 6.17 K/uL (4.8-10.8) 01/27/19 19:20 RBC 4.26 M/uL (4.7-6.1) L 01/27/19 19:20 Hgb 11.6 g/dL (14.0-18.0) L 01/27/19 19:20 Hct 37.4 % (42-52) L 01/27/19 19:20 MCV 87.8 fL (80-100) 01/27/19 19:20 MCH 27.2 pg (25-34) 01/27/19 19:20 MCHC 31.5 g/dL (32-36) L 01/27/19 19:20 RDW Std Deviation 57.5 fL (36.4-46.3) H 01/27/19 19:20 RDW Coeff of Kelly 17.9 % (11.5-14.5) H 01/27/19 19:20 Plt Count 108 K/uL (130-400) L 01/27/19 19:20 Neutrophils % (Manual) 85.9 % 01/27/19 19:20 Lymphocytes % (Manual) 5.3 % 01/27/19 19:20 Monocytes % (Manual) 7.9 % 01/27/19 19:20 Basophils % (Manual) 0.9 % 01/27/19 19:20 Neutrophils # (Manual) 5.30 K/uL (1.4-6.5) 01/27/19 19:20 Total Absolute Neuts 5.30 K/uL (1.4-6.5) 01/27/19 19:20 Lymphocytes # (Manual) 0.33 K/uL (1.2-3.4) L 01/27/19 19:20 Total Abs Lymphocytes 0.33 K/uL (1.2-3.4) L 01/27/19 19:20 Monocytes # (Manual) 0.49 K/uL (0.11-0.59) 01/27/19 19:20 Basophils # (Manual) 0.06 K/uL (0-0.2) 01/27/19 19:20 Platelet Estimate Decreased (Normal) L 01/27/19 19:20 Echinocytes 1+ 01/27/19 19:20 Acanthocytes (Spur) 1+ 01/27/19 19:20 VBG pH 7.29 (7.36-7.41) L 01/27/19 21:57 VBG pCO2 31 mmHg (38-50) L 01/27/19 21:57 VBG pO2 38 mmHg 01/27/19 21:57 VBG HCO3 15 mmol/L 01/27/19 21:57 VBG O2 Saturation 68.7 % 01/27/19 21:57 VBG Base Excess -10.7 mEq/L 01/27/19 21:57 Barometric Pressure 731.0 mm/Hg 01/27/19 21:57 Sodium 136 mmol/L (136-145) 01/27/19 19:20 Potassium 4.8 mmol/L (3.5-5.1) 01/27/19 19:20 Chloride 111 mmol/L (98-107) H 01/27/19 19:20 Carbon Dioxide 16 mmol/L (21-32) L 01/27/19 19:20 Anion Gap 9.0 (3-11) 01/27/19 19:20 BUN 31 mg/dl (7-18) H 01/27/19 19:20 Creatinine 2.45 mg/dl (0.6-1.4) H 01/27/19 19:20 Est Cr Clr Drug Dosing 21.1 ml/min 01/27/19 19:20 Est GFR ( Amer) 26.2 01/27/19 19:20 Est GFR (Non-Af Amer) 22.6 01/27/19 19:20 BUN/Creatinine Ratio 12.6 (10-20) 01/27/19 19:20 Glucose 98 mg/dl (70-99) 01/27/19 19:20 Calcium 9.3 mg/dl (8.5-10.1) 01/27/19 19:20 Total Bilirubin 0.3 mg/dl (0.2-1) 01/27/19 19:20 AST 18 U/L (15-37) 01/27/19 19:20 ALT 28 U/L (12-78) 01/27/19 19:20 Alkaline Phosphatase 157 U/L (45-117) H 01/27/19 19:20 Troponin I < 0.015 ng/ml (0-0.045) 01/27/19 19:20 Total Protein 7.6 gm/dl (6.4-8.2) 01/27/19 19:20 Albumin 3.6 gm/dl (3.4-5.0) 01/27/19 19:20 Globulin 4.0 gm/dl (2.5-4.0) 01/27/19 19:20 Albumin/Globulin Ratio 0.9 (0.9-2) 01/27/19 19:20 Lipase 316 U/L (73-393) 01/27/19 19:20 Code Status & VTE Plan Code Status Full code VTE Prophylaxis Plan VTE Prophylaxis will be ordered: Yes PG Care Time/CCT Total # of Minutes Spent Total Time Spent with Patient: Total time spent is greater than 50% in coordination of care (as documented) at patient's floor/unit and/or counseling patient: (1) Hypertension Hypertension type: unspecified Qualified Code(s): I10 - Essential (primary) hypertension (2) Depression Depression Type: major depressive disorder Major depression recurrence: unspecified whether recurrent Active/Remission status: in full remission Qualified Code(s): F32.5 - Major depressive disorder, single episode, in full r emission (3) BPH (benign prostatic hyperplasia) Lower urinary tract symptom presence: symptoms absent Qualified Code(s): N40.0 - Benign prostatic hyperplasia without lower urinary tract symptoms
[2019-01-27] MEDS ORDERED: ALUMINUM/MAGNESIUM SUSP 30 ML UDC PO PRN (23:55)
[2019-01-27] MEDS ORDERED: NITROGLYCERIN SL 0.4 MG/TAB TAB SL PRN (23:55)
[2019-01-27] MEDS ORDERED: MAGNESIUM HYDROXIDE SUSP 30 ML UDC PO PRN (23:55)
[2019-01-27] MEDS ORDERED: ACETAMINOPHEN 325 MG TAB PO PRN (23:55)
[2019-01-27] MEDS ORDERED: POLYETHYLENE (MIRALAX) 17 GM PACK PO PRN (23:55)
[2019-01-28] MEDS: cilostazoL 100 MG TAB PO SCH ×3 (00:53→22:04)
--- NOTE | 2019-01-28 01:02 | Emergency Department Note ---
Entered by Savanna Buckley acting as a scribe for George Hammond DO History of Present Illness General Chief complaint: Cardiac Assessment Stated complaint: CHEST PAIN History of Present Illness Provider complaint: chest pain Onset (ago): hour(s) 4 Location: chest Radiation: non-radiation Quality: + dull Relieved By: + none Exacerbated By: + none Associated symptoms: + denies other symptoms (arm pain, jaw pain, runny nose) and + other (pain lasted for 2 hours); no cough, no diaphoresis, no nausea/vomiting and no shortness of breath Treatments prior to arrival: aspirin (4) The patient is an 89 year old white male w/ PMHx of HTN, gout, GERD, hypokalemia, stage III chronic kidney disease, PAD and depression who presents to the ED w/ CC of chest pain beginning 4 hours ago. The patient states that he felt a dull chest pain that went across his mid-chest. The patient states that the pain is non-radiating. The patient notes that the pain only lasted for 2 hours. The patient states that nothing makes the pain better or worse. Per daughter, the patient was given 4 Aspirin by EMS prior to arrival. The patient denies arm pain, jaw pain, shortness of breath, nausea, diaphoresis, cough and runny nose. Patient does admit to mild amount of diarrhea although this has been present for the past several weeks. Home Medications Home Medications Medication Instructions Recorded Confirmed Type aspirin 81 mg tablet,delayed 81 mg PO DAILY #30 tab 10/02/18 01/27/19 Rx release escitalopram 10 mg tablet 10 mg PO DAILY #30 tab 10/02/18 01/27/19 Rx allopurinol 100 mg tablet 100 mg PO DAILY #30 tab 10/07/18 01/27/19 Rx atorvastatin 10 mg tablet 10 mg PO DAILY #30 tab 10/07/18 01/27/19 Rx dutasteride 0.5 mg capsule 0.5 mg PO DAILY #90 cap 10/07/18 01/27/19 Rx ranitidine 150 mg tablet 150 mg PO BID #60 tab 11/10/18 01/27/19 Rx cilostazol 100 mg tablet 100 mg PO BID #60 tab 12/12/18 01/27/19 Rx ferrous sulfate 325 mg (65 mg 325 mg PO DAILY #30 tab 01/05/19 01/27/19 Rx iron) tablet ergocalciferol (vitamin D2) 50,000 units PO MONTHLY 01/11/19 01/27/19 History furosemide 20 mg PO 2XWK 01/11/19 01/27/19 History losartan 50 mg PO DAILY 01/11/19 01/27/19 History amlodipine [Norvasc] 5 mg PO QAM #30 tab 01/15/19 01/27/19 Rx magnesium chloride 256 mg PO DAILY #120 tab 01/15/19 01/27/19 Rx potassium chloride 20 meq PO BID #60 tab 01/15/19 01/27/19 Rx Allergies Allergy/AdvReac Type Severity Reaction Status Date / Time amoxicillin Allergy Severe HIVES; Verified 01/27/19 22:48 ANGIOEDEMA lisinopril Allergy Mild HIVES Verified 01/27/19 22:48 Penicillins Allergy Mild HIVES Verified 01/27/19 22:48 Past Med/Surg History Medical History Hypokalemia (Chronic) Hypomagnesemia (Acute) Depression (Acute) Colon cancer (Chronic) BPH (benign prostatic hyperplasia) (Acute) Aneurysm of abdominal aorta (Chronic) Carotid artery stenosis (Acute) Diabetes mellitus (Acute) Diabetic neuropathy (Acute) Hyperlipidemia (Acute) Hypertension (Chronic) Non-small cell lung cancer (Acute) Lower & Upper PAD (peripheral artery disease) (Acute) Second degree AV block (Acute) 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 gout (Resolved) Acid reflux disease with ulcer (Inactive) Anemia (Inactive) Lung nodule (Inactive) Pulmonary emphysema (Inactive) Vitamin D deficiency (Inactive) Surgical History H/O hernia repair History of AAA (abdominal aortic aneurysm) repair History of appendectomy History of cholecystectomy History of colon surgery History of lung surgery Social History Preferred Language: Yi Communication Ability: Effective Hospitalist Nocturnist Physician Required: No Beliefs That Will Affect Care: None Current Living Situation: Alone Feels Safe at Home: Yes Safety Concerns: Feels Safe At This Time Smoking Status: Former smoker Cigarettes Per Day: 20 ; Hx Alcohol Use: No Hx Substance Use: No Review of Systems See HPI for pertinent positives & negatives. and A total of 10 systems reviewed and were otherwise negative Physical Exam Vital Signs Vital Signs - 24 hr 10/15/19 19:52 01/27/19 19:58 01/27/19 20:00 Temperature 36.7 C Temperature Source Oral Sepsis Recent Fever Within 48 Hours No Sepsis Action Taken by Nursing No Action Required Pulse Oximetry Post Tiitration 100 100 Pulse Rate 79 79 71 Pulse Rate from SpO2 Sensor 67 Respiratory Rate 18 18 16 Blood Pressure 168/78 H 156/64 H Blood Pressure Mean 108 94 Pulse Oximetry 99 99 98 Oxygen Delivery Method Room Air Room Air 01/27/19 20:40 01/27/19 21:03 01/27/19 21:30 Temperature Temperature Source Sepsis Recent Fever Within 48 Hours Sepsis Action Taken by Nursing Pulse Oximetry Post Tiitration Pulse Rate 78 94 H 76 Pulse Rate from SpO2 Sensor 59 L 87 70 Respiratory Rate 14 20 16 Blood Pressure Blood Pressure Mean Pulse Oximetry 97 95 98 Oxygen Delivery Method 01/27/19 21:37 01/27/19 22:00 01/27/19 22:30 Temperature Temperature Source Sepsis Recent Fever Within 48 Hours Sepsis Action Taken by Nursing Pulse Oximetry Post Tiitration Pulse Rate 75 77 77 Pulse Rate from SpO2 Sensor 72 68 75 Respiratory Rate 14 18 17 Blood Pressure 134/70 159/81 H Blood Pressure Mean 91 107 Pulse Oximetry 99 99 96 Oxygen Delivery Method 01/27/19 23:00 Temperature Temperature Source Sepsis Recent Fever Within 48 Hours Sepsis Action Taken by Nursing Pulse Oximetry Post Tiitration Pulse Rate 73 Pulse Rate from SpO2 Sensor 70 Respiratory Rate 14 Blood Pressure 163/84 H Blood Pressure Mean 110 Pulse Oximetry 99 Oxygen Delivery Method GENERAL: laying in bed, disheveled, alert, no distress, non-toxic EYE EXAM: normal conjunctiva OROPHARYNX: no exudate, no erythema, lips, buccal mucosa, and tongue normal and mucous membranes are moist NECK: supple, no nuchal rigidity, no adenopathy, non-tender LUNGS: Clear to auscultation. Normal chest wall mechanics HEART: +JOHN, S1 normal and S2 normal ABDOMEN: abdomen soft, non-tender, normo-active bowel sounds, no masses, no rebound or guarding. BACK: Back is symmetrical on inspection and there is no deformity, no midline tenderness, no CVA tenderness. SKIN: no rashes and no bruising UPPER EXTREMITIES: radial pulses equal bilaterally, upper extremities are grossly normal. LOWER EXTREMITIES: calves equal bilaterally NEURO EXAM: Normal sensorium, cranial nerves II-XII grossly intact, normal speech, no gross weakness of arms, no gross weakness of legs. Course ED COURSE: Vital signs were reviewed and showed hypertension The patients medical record was reviewed The above diagnostic studies were performed and reviewed. ED treatments and interventions as stated above. 2002: The patient was evaluated in room B5. A complete history and physical examination was performed. 2305: Upon reevaluation, the patient is doing well. I discussed my findings with the patient and he understands and agrees with the treatment plan. Based on the patients age, coexisting illnesses, exam and lab findings the decision to treat as an inpatient was made.The patient remained stable while under my care. The patient will be evaluated for [facility] Consultations Consultation #1: The patient will be evaluated for further management [facility]. Time: 23:06 Administered Medications Cilostazol (Pletal) 100 mg PO BID [facility] Stop: 02/26/19 23:54 Last Admin: 01/28/19 00:53 Dose: 100 mg Documented by: [id number] Ranitidine HCl (Zantac) 150 mg PO BID [facility] Stop: 02/26/19 23:54 Last Admin: 01/28/19 00:53 Dose: 150 mg Documented by: [id number] Medical Decision Making Differential Diagnosis Differential diagnosis: Etiologies such as biliary colic, cholecystitis, hepatitis, pancreatitis, cardiac disease, pancreatitis, gastritis, peptic ulcer disease, appendicitis, cystitis, diverticulitis, mesenteric ischemia, inflammatory bowel disease, ileus, bowel obstruction, testicular torsion, aortic pathology, shingles, as well as others were considered. Medical Records Attestation: I reviewed the patient's medical records. Home Medications Current Medication List: was personally reviewed by me Laboratory Data Attestation: I reviewed the patient's lab results. Result diagrams: 01/27/19 19:20 01/27/19 19:20 Lab Results 01/27/19 01/27/19 01/27/19 Range/Units 19:20 19:20 21:57 WBC 6.17 (4.8-10.8) K/uL RBC 4.26 L (4.7-6.1) M/uL Hgb 11.6 L (14.0-18.0) g/dL Hct 37.4 L (42-52) % MCV 87.8 (80-100) fL MCH 27.2 (25-34) pg MCHC 31.5 L (32-36) g/dL RDW Std Deviation 57.5 H (36.4-46.3) fL RDW Coeff of Kelly 17.9 H (11.5-14.5) % Plt Count 108 L (130-400) K/uL Neutrophils % (Manual) 85.9 % Lymphocytes % (Manual) 5.3 % Monocytes % (Manual) 7.9 % Basophils % (Manual) 0.9 % Neutrophils # (Manual) 5.30 (1.4-6.5) K/uL Total Absolute Neuts 5.30 (1.4-6.5) K/uL Lymphocytes # (Manual) 0.33 L (1.2-3.4) K/uL Total Abs Lymphocytes 0.33 L (1.2-3.4) K/uL Monocytes # (Manual) 0.49 (0.11-0.59) K/uL Basophils # (Manual) 0.06 (0-0.2) K/uL Platelet Estimate Decreased L (Normal) Echinocytes 1+ Acanthocytes (Spur) 1+ VBG pH 7.29 L (7.36-7.41) VBG pCO2 31 L (38-50) mmHg VBG pO2 38 mmHg VBG HCO3 15 mmol/L VBG O2 Saturation 68.7 % VBG Base Excess -10.7 mEq/L Barometric Pressure 731.0 mm/Hg Sodium 136 (136-145) mmol/L Potassium 4.8 (3.5-5.1) mmol/L Chloride 111 H (98-107) mmol/L Carbon Dioxide 16 L (21-32) mmol/L Anion Gap 9.0 (3-11) BUN 31 H (7-18) mg/dl Creatinine 2.45 H (0.6-1.4) mg/dl Est Cr Clr Drug Dosing 21.1 ml/min Est GFR ( Amer) 26.2 Est GFR (Non-Af Amer) 22.6 BUN/Creatinine Ratio 12.6 (10-20) Glucose 98 (70-99) mg/dl Calcium 9.3 (8.5-10.1) mg/dl Total Bilirubin 0.3 (0.2-1) mg/dl AST 18 (15-37) U/L ALT 28 (12-78) U/L Alkaline Phosphatase 157 H (45-117) U/L Troponin I < 0.015 (0-0.045) ng/ml Total Protein 7.6 (6.4-8.2) gm/dl Albumin 3.6 (3.4-5.0) gm/dl Globulin 4.0 (2.5-4.0) gm/dl Albumin/Globulin Ratio 0.9 (0.9-2) Lipase 316 (73-393) U/L Imaging Data Radiologist's Impression: Radiology results as stated below per my review and the radiologist's interpretation: XR chest 1V portable HISTORY: 89 years-old Male Chest Pain acute atypical chest pain COMPARISON: Chest radiograph 10/24/2017, chest CT 10/08/2018 TECHNIQUE: Portable AP view of the chest FINDINGS: Cardiac silhouette is enlarged, unchanged. Postoperative changes of the right hemithorax redemonstrated with chronic blunting of the right costophrenic angle. Unchanged hazy right midlung and right basilar densities. No pneumothorax. No overt pulmonary edema. The left lung appears clear. Vascular graft of the upper abdomen is partially imaged. Degenerative changes of the shoulders and spine. IMPRESSION: 1. No acute process. 2. Postoperative changes of the right hemithorax redemonstrated with unchanged small right pleural effusion and chronic right lung base scarring. The above report was generated using voice recognition software. It may contain grammatical, syntax or spelling errors. Electronically signed by: Lenny Jarvis M.D. 01/27/2019 8:33 PM Blood Pressure Blood Pressure Findings: Elevated blood pressure Blood Pressure Disposition: further management by hospitalist DANN Narrative Patient is an 89-year-old male who presents the ER for midsternal chest pain which started around 4 PM and lasted intermittently for 2 hours. He was given aspirin and brought in by EMS and symptoms completely resolved. Describes the pain as a dull ache. Vitals with systolic blood pressure of 177. Labs show no significant leukocytosis but a mild anemia 11.6. Platelets slightly low at 108. VBG with pH 7.29. CO2 31. Do favor this secondary to the diarrhea. BMP with CO2 of 16. Creatinine 2.45 with a baseline of about 2. LFTs bilirubin and troponin was unremarkable. Lipase was normal. EKG was nondiagnostic. Chest x- ray without any focal infiltrate. Patient was updated bedside. Patient was discussed with the hospitalist and the family was updated and admitted for further work-up. Impression & Plan Precordial chest pain, Acidosis, Non-small cell lung cancer, Stage III chronic kidney disease, Diabetes mellitus, Hypertension Discharge Plan Visit Data *Final* Discharge Date/Time: 01/27/19 23:29 Chief Complaint: Cardiac Assessment Stated Complaint: CHEST PAIN ED Provider: George Hammond Discharge Problem: Precordial chest pain, Acidosis, Non-small cell lung cancer, Stage III chronic kidney disease, Diabetes mellitus, Hypertension Patient Disposition: Admitted As Inpatient Discharge Instructions Interventions: ED Discharge Assessment Last Done: 01/27/19 23:29 The scribe's documentation has been prepared under my direction and personally reviewed by me in its entirety. I confirm that the note above accurately reflects all work, treatment, procedures, and medical decision making performed by me.
[2019-01-28] MEDS: ESCITALOPRAM OXALATE 10 MG TAB PO SCH (08:13)
[2019-01-28] MEDS: FERROUS SULFATE 325 MG TAB PO SCH (08:13)
[2019-01-28] MEDS: LOSARTAN POTASSIUM 50 MG TAB PO SCH (08:13)
[2019-01-28] MEDS: MAGNESIUM CHLORIDE 64MG DELAYED REL TAB PO SCH (08:14)
[2019-01-28] MEDS: ATORVASTATIN 10 MG TAB PO SCH (08:14)
[2019-01-28] MEDS: allopurinoL 100 MG TAB PO SCH (08:14)
[2019-01-28] MEDS: AVODART~ORDER AWAITING ACTION SCH ×2 (08:15→15:25)
[2019-01-28] MEDS ORDERED: ASPIRIN 81 MG ECTAB PO SCH ×2 (09:00)
[2019-01-28] MEDS ORDERED: AMLODIPINE BESYLATE 5 MG TAB PO SCH (09:00)
[2019-01-28 09:05] LABS: Mean Corpuscular Hgb Conc 31.5 g/dL (32-36)
[2019-01-28 09:11] LABS: Hematocrit (blood only) 34.6 % (42-52); Hemoglobin 10.9 g/dL (14.0-18.0); Mean Corpuscular Hemoglobin 27.5 pg (25-34); Mean Corpuscular Volume 87.2 fL (80-100); RDW Standard Deviation 57.8 fL (36.4-46.3); Red Blood Count 3.97 M/uL (4.7-6.1); White Blood Count 6.83 K/uL (4.8-10.8)
[2019-01-28 09:28] LABS: Platelet Count 124 K/uL (130-400)
[2019-01-28 09:29] LABS: Basophils # (auto) 0.05 K/uL (0-0.2); Basophils % (auto) 0.7 %; Echinocytes 2+; Eosinophils # (auto) 0.16 K/uL (0-0.5); Eosinophils % (auto) 2.4 %; Immature Granulocytes # (auto) 0.02 K/uL (0.00-0.02); Immature Granulocytes % (auto) 0.3 %; Lymphocytes # (auto) 0.73 K/uL (1.2-3.4); Lymphocytes % (auto) 10.8 %; Monocytes # (auto) 0.69 K/uL (0.11-0.59); Monocytes % (auto) 10.2 %; Neutrophils % (auto) 75.6 %; Platelet Estimate Decreased (Normal)
[2019-01-28 09:40] LABS: BUN Creatinine Ratio 14.6 (10-20); Calcium 9.2 mg/dl (8.5-10.1); Creatinine Clr Calc Pharmacy 25.5 ml/min; Est GFR (African American) 33.7; Est GFR (Non-African American) 29.1; Magnesium 2.2 mg/dl (1.8-2.4); Potassium 4.6 mmol/L (3.5-5.1)
[2019-01-28] MEDS: ONDANSETRON INJ 2 MG/ML 2 ML VIAL IV PRN ×2 (10:40→20:06)
[2019-01-28 11:19] LABS: Gastric Occult Blood Positive (Negative)
[2019-01-28 11:20] LABS: pH Gastric Fluid 2
--- NOTE | 2019-01-28 11:34 | Cardiology Consultation ---
Date of Consultation January 28, 2019 Assessment & Plan (1) Precordial chest pain: The patient's chest discomfort lasted for over 2 hours. There were no acute EKG changes and 2 troponin I levels have been undetectable. He has had a similar presentation numerous times over the last several years. A dobutamine stress test performed for this symptom complex back in 2016 showed no evidence of ischemia. No further cardiac workup indicated at this time. (2) Hypertension: Borderline control on current medical regimen. (3) Hyperlipidemia: Continue atorvastatin. (4) Paroxysmal SVT (supraventricular tachycardia): No recurrence thus far on telemetry. History of Present Illness Attending Physician: Norman Amin MD History of Present Illness Mr. Mckeon is an 89-year-old male admitted yesterday because of a chest pain syndrome. This causes was ordered to assist in his management. Of note, patient typically follows with Dr. Quarles in the outpatient setting. The patient was in his usual state of health until approximately 4:00 p.m. yesterday afternoon. While watching television, the patient developed a dull ache in a bandlike distribution across his mid chest. There are no other associated symptoms such as shortness of breath, nausea, vomiting, diaphoresis, or radiation of the discomfort. At approximately 6:00 p.m., the patient called 911. While en route to the hospital, his symptoms resolved. The patient has never experienced exertional chest discomfort. He further denies exertional dyspnea, syncope, presyncope, PND, orthopnea, palpitations, lower extremity edema, and claudication. The patient has had several similar presentations over the last 5 years. He did have a dobutamine stress echocardiogram performed in July 2016 which showed no evidence of ischemia. That study was performed for symptom complex as described above. Currently the patient is resting comfortably in bed without complaints. New heading past medical and surgical history 1. Hypertension 2. Hypercholesterolemia 3. Paroxysmal SVT 4. 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 Peripheral vascular disease 6. Emphysema 7. Chronic renal failure 8. GERD 9. Esophageal ulcers 10. BPH 11. Gout 12. Cerebral vascular disease 13. Depression 14. Glaucoma 15. Vitamin-D deficiency 16. Non-small cell carcinoma of the lung-September 2016 17. Left upper lobectomy-September 2016 18. Colon cancer-June 2012 19. Right hemicolectomy-June 2012 20. AAA repair-February 2013, [facility] 21. Appendectomy 22. Cholecystectomy 23. Inguinal hernia repair Social history , lives alone Quit tobacco in 1987 No alcohol Family history No early coronary artery disease Review of systems A 10 point review of systems was negative except for that described above. Allergies Allergy/AdvReac Type Severity Reaction Status Date / Time amoxicillin Allergy Severe HIVES; Verified 01/27/19 22:48 ANGIOEDEMA lisinopril Allergy Mild HIVES Verified 01/27/19 22:48 Penicillins Allergy Mild HIVES Verified 01/27/19 22:48 Home Medications Home Medications Medication Instructions Recorded Confirmed Type aspirin 81 mg tablet,delayed 81 mg PO DAILY #30 tab 10/02/18 01/27/19 Rx release escitalopram 10 mg tablet 10 mg PO DAILY #30 tab 10/02/18 01/27/19 Rx allopurinol 100 mg tablet 100 mg PO DAILY #30 tab 10/07/18 01/27/19 Rx atorvastatin 10 mg tablet 10 mg PO DAILY #30 tab 10/07/18 01/27/19 Rx dutasteride 0.5 mg capsule 0.5 mg PO DAILY #90 cap 10/07/18 01/27/19 Rx ranitidine 150 mg tablet 150 mg PO BID #60 tab 11/10/18 01/27/19 Rx cilostazol 100 mg tablet 100 mg PO BID #60 tab 12/12/18 01/27/19 Rx ferrous sulfate 325 mg (65 mg 325 mg PO DAILY #30 tab 01/05/19 01/27/19 Rx iron) tablet ergocalciferol (vitamin D2) 50,000 units PO MONTHLY 01/11/19 01/27/19 History furosemide 20 mg PO 2XWK 01/11/19 01/27/19 History losartan 50 mg PO DAILY 01/11/19 01/27/19 History amlodipine [Norvasc] 5 mg PO QAM #30 tab 01/15/19 01/27/19 Rx magnesium chloride 256 mg PO DAILY #120 tab 01/15/19 01/27/19 Rx potassium chloride 20 meq PO BID #60 tab 01/15/19 01/27/19 Rx Patient History Medical History Hypokalemia (Chronic) Hypomagnesemia (Acute) Depression (Acute) Colon cancer (Chronic) BPH (benign prostatic hyperplasia) (Acute) Aneurysm of abdominal aorta (Chronic) Carotid artery stenosis (Acute) Diabetes mellitus (Acute) Diabetic neuropathy (Acute) Hyperlipidemia (Acute) Hypertension (Chronic) Non-small cell lung cancer (Acute) Lower & Upper PAD (peripheral artery disease) (Acute) Second degree AV block (Acute) 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 gout (Resolved) Acid reflux disease with ulcer (Inactive) Anemia (Inactive) Lung nodule (Inactive) Pulmonary emphysema (Inactive) Vitamin D deficiency (Inactive) Surgical History H/O hernia repair History of AAA (abdominal aortic aneurysm) repair History of appendectomy History of cholecystectomy History of colon surgery History of lung surgery Social History Preferred Language: Thai Communication Ability: Effective Band Builder Required: No Beliefs That Will Affect Care: None Current Living Situation: Alone Feels Safe at Home: Yes Safety Concerns: Feels Safe At This Time Smoking Status: Former smoker Cigarettes Per Day: 20 ; Hx Alcohol Use: No Hx Substance Use: No Physical Exam Physical Exam: In general this is an elderly white male lying supine in bed without complaints. HEENT exam is negative. Neck is supple with full carotid upstrokes. No carotid bruits. Jugular venous pressure is flat at 90. There is no thyromegaly. Cardiovascular exam reveals a regular rhythm with a normal S1 and S2. A 1/6 basal systolic ejection murmur is noted. Lungs are clear without rales, rhonchi or wheezes. Abdomen is soft nontender without bruits. Extremities reveal intact radial artery pulses bilaterally. There is no peripheral edema. Results & Data Vital Signs (Past 12 Hours) Vital Signs Temp Pulse Pulse Resp BP Pulse Ox 01/28/19 10:42 67 16 151/53 H 99 01/28/19 10:36 75 174/87 H 99 01/28/19 07:16 36.6 C 79 17 163/70 H 99 01/28/19 06:20 71 01/28/19 03:27 36.6 C 67 18 170/69 H 98 01/28/19 00:00 36.5 C 72 18 177/84 H 99 Laboratory Results CBC notes hemoglobin of 10.9, crit 34.6, white count 6.8, platelet count [id number]. Electrolytes notice sodium of 136, potassium 4.6, chloride 112, bicarb 15, BUN 29, creatinine 1.99, glucose of 143. Magnesium level is normal at 2.2. Two troponin I levels are undetectable at less than 0.015. Diagnostic Findings EKG notes normal sinus rhythm with occasional PVCs, left axis deviation, and incomplete right bundle-branch block. Chest x-ray shows no acute disease. PG Care Time/CCT Total # of Minutes Spent Total Time Spent with Patient: Total time spent is greater than 50% in coordination of care (as documented) at patient's floor/unit and/or counseling patient: (1) Hypertension Hypertension type: unspecified Qualified Code(s): I10 - Essential (primary) hypertension
[2019-01-28] MEDS ORDERED: FAMOTIDINE 20 MG in SYRINGE 3 ML IV SCH (12:30)
--- NOTE | 2019-01-28 16:52 | Consultation Report ---
DATE OF CONSULTATION: 01/28/2019 REASON FOR EVALUATION: Anemia with heme positive stool. HISTORY OF PRESENT ILLNESS: The patient is an 89-year-old admitted with chest pain. He has been evaluated by tool maker and they did not feel that he had an acute cardiac event. His cardiac echo was relatively normal. His EKG shows right bundle branch block, but no evidence of acute infarction and his troponins are normal. The patient does take a baby aspirin every day and has been on Zantac at home. When he came into the hospital, his hemoglobin was in the 10 range with heme positive stools. He reports no nausea, vomiting or change in bowels. He did have a right colectomy in 2012 for colon cancer. GI consultation has been requested. PAST MEDICAL HISTORY: Remarkable for paroxysmal SVT, esophageal reflux, hypertension, hyperlipidemia, peripheral artery disease, stage III kidney disease, depression and BPH. He has also had carotid artery stenosis. He had a right colectomy for colon cancer. He has had gout, appendectomy, cholecystectomy and lung surgery. He also had a triple aortic aneurysm repair and hernia repair. MEDICATIONS: Per list. ALLERGIES: AMOXICILLIN, LISINOPRIL, PENICILLIN. FAMILY HISTORY: Noncontributory. SOCIAL HISTORY: The patient feels safe at home, lives alone, former smoker, no alcohol. REVIEW OF SYSTEMS: Positive for upset stomach today and some fatigue. The remainder is negative. PHYSICAL EXAMINATION: GENERAL: The patient appears awake, alert, in no acute distress. VITAL SIGNS: Blood pressure is 156/64, pulse 76. ABDOMEN: Shows a right upper quadrant and midline scars well healed. There are no masses, tenderness or hepatosplenomegaly. LABORATORY DATA: Blood count showed white count of 6.17, hemoglobin 11.6, platelets are 108. IMPRESSION AND PLAN: The patient has anemia with heme positive stool. He is on aspirin. It is likely that the aspirin is causing some gastritis or an ulcer. The aspirin itself may be masking the typical symptoms because it was a pain reliever. I will plan on scheduling him for an EGD tomorrow to evaluate his anemia.
--- NOTE | 2019-01-28 17:50 | Hospitalist Progress Note ---
Date of Service January 28, 2019 Assessment & Plan (1) Precordial chest pain: 2 hours of chest pain yesterday. Additional chest pain today relieved by nitroglycern. Appreciate cardiology consult - multiple prior workup negative and current chest pain more likely GERD. Associated with vomiting today - gastric occult positive. The patient denied prior heartburn but review of chart shows previous requirement for blood transfusions due to GI bleeding. Will consult GI for further recommendations - known to [facility] group. (2) GI bleed: Switch oral ranitidine to IV Pepcid 20 mg BID. Gastric occult positive in setting of chest pain. Chronic diarrhea - patient reports no worse than usual. FOB negative on recent admission. Consult GI (3) GERD (gastroesophageal reflux disease): Suspect cause of chest pain yesterday. Likely exacerbated by recently adding amlodipine to medications for his blood pressure. Will discontinue. IV Pepcid as above. (4) Hypertension: D/c amlodipine and lasix as above. Monitor (5) Hyperlipidemia: Continue atorvastatin 10 mg p.o. daily (6) PAD (peripheral artery disease): Will hold pletal and aspirin pending severity of bleed (7) Stage III chronic kidney disease: Improving Cr. (8) Depression: Continue escitalopram 10 mg p.o. daily. (9) BPH (benign prostatic hyperplasia): Continue dutasteride 0.5 mg p.o. daily (10) DVT prophylaxis: Defer chemical prophylaxis due to acute GI bleed SCDs Will need PT/OT evals prior to discharge. Subjective Reports additional episode of chest pain at rest this morning associated with vomiting. Relieved after vomiting episode. Reports ongoing diarrhea but no worse than his usual which has been going on for months. Denies NSAID use for his arthritis pain in hip (diagnosed on last admission) however he was started on amlodipine last admission for hypertension possibly making reflux worse. He denies any history of reflux however notable history for prior GI bleeds. After vomiting episode he feels well. Appears coffee-ground and sent down for gastric occult. He denies any orthopnea, PND, palpitations. Of note fecal occult stool was performed on last admission due to history of GI bleeding and ongoing diarrhea however this was negative. Review of Systems Review of Systems: All systems reviewed & are unremarkable except as noted in HPI & below Physical Exam Constitutional: well developed and well nourished; no acute distress Eyes: + anicteric sclerae and PERRL Neck: normal visual inspection and trachea midline Respiratory: normal respiratory effort, lungs clear to auscultation Cardiovascular: Rate/Rhythm: regular rate and regular rhythm Heart Sounds: no murmur Gastrointestinal (Abdomen): Inspection/Auscultation: normal bowel sounds Percussion/Palpation: abdomen soft; abdomen nontender, no guarding and abdomen not rigid Musculoskeletal: no cyanosis or clubbing, extremities motor strength 5/5 (no left groin pain (prior admission for arthritis)) Skin: no rashes, warm and dry Neurologic: moves all extremities Psychiatric: A+Ox3, euthymic affect Results & Data Vital Signs (Past 12 Hours) Vital Signs Temp Pulse Pulse Resp BP Pulse Ox 01/28/19 15:28 97.5 F L 78 20 145/73 H 98 01/28/19 15:06 81 01/28/19 10:42 67 16 151/53 H 99 01/28/19 10:36 75 174/87 H 99 01/28/19 07:16 97.9 F 79 17 163/70 H 99 01/28/19 06:20 71 PG Care Time/CCT Total # of Minutes Spent Total Time Spent with Patient: Total time spent is greater than 50% in coordination of care (as documented) at patient's floor/unit and/or counseling patient: (1) BPH (benign prostatic hyperplasia) Lower urinary tract symptom presence: symptoms absent Qualified Code(s): N40.0 - Benign prostatic hyperplasia without lower urinary tract symptoms (2) GI bleed GI bleed type/associated pathology: unspecified gastrointestinal hemorrhage type Qualified Code(s): K92.2 - Gastrointestinal hemorrhage, unspecified (3) Depression Active/Remission status: in full remission Depression Type: major depressive disorder Major depression recurrence: unspecified whether recurrent Qualified Code(s): F32.5 - Major depressive disorder, single episode, in full remission (4) GERD (gastroesophageal reflux disease) Esophagitis presence: esophagitis presence not specified Qualified Code(s): K21.9 - Gastro-esophageal reflux disease without esophagitis (5) Hypertension Hypertension type: unspecified Qualified Code(s): I10 - Essential (primary) hypertension
[2019-01-28] MEDS: FAMOTIDINE 20 MG in SYRINGE 3 ML IV SCH (20:06)
[2019-01-29] MEDS ORDERED: INSULIN ASPART 100 UNITS/ML 3 ML PEN SC SCH
[2019-01-29] MEDS: AVODART~ORDER AWAITING ACTION SCH ×4 (01:40→23:35)
[2019-01-29 07:01] LABS: BUN Creatinine Ratio 13.8 (10-20); Calcium 8.9 mg/dl (8.5-10.1); Creatinine Clr Calc Pharmacy 25.4 ml/min; Est GFR (Non-African American) 29.3; Potassium 4.6 mmol/L (3.5-5.1)
[2019-01-29 07:17] LABS: Mean Corpuscular Hgb Conc 30.9 g/dL (32-36); Platelet Count 122 K/uL (130-400)
[2019-01-29 07:18] LABS: Basophils # (auto) 0.04 K/uL (0-0.2); Basophils % (auto) 0.6 %; Echinocytes 1+; Eosinophils # (auto) 0.15 K/uL (0-0.5); Eosinophils % (auto) 2.3 %; Hematocrit (blood only) 33.3 % (42-52); Hemoglobin 10.3 g/dL (14.0-18.0); Immature Granulocytes # (auto) 0.03 K/uL (0.00-0.02); Immature Granulocytes % (auto) 0.5 %; Lymphocytes # (auto) 0.94 K/uL (1.2-3.4); Lymphocytes % (auto) 14.6 %; Mean Corpuscular Hemoglobin 26.7 pg (25-34); Mean Corpuscular Volume 86.3 fL (80-100); Monocytes # (auto) 0.71 K/uL (0.11-0.59); Monocytes % (auto) 11.1 %; Neutrophils # (auto) 4.55 K/uL (1.4-6.5); Neutrophils % (auto) 70.9 %; Ovalocytes 1+; Platelet Estimate Normal (Normal); RDW Coefficient of Variation 17.9 % (11.5-14.5); RDW Standard Deviation 56.7 fL (36.4-46.3); Red Blood Count 3.86 M/uL (4.7-6.1); White Blood Count 6.42 K/uL (4.8-10.8)
[2019-01-29] MEDS: FERROUS SULFATE 325 MG TAB PO SCH (09:59)
[2019-01-29] MEDS: ESCITALOPRAM OXALATE 10 MG TAB PO SCH (10:00)
[2019-01-29] MEDS: MAGNESIUM CHLORIDE 64MG DELAYED REL TAB PO SCH (10:00)
[2019-01-29] MEDS: allopurinoL 100 MG TAB PO SCH (10:00)
[2019-01-29] MEDS: ATORVASTATIN 10 MG TAB PO SCH (10:01)
[2019-01-29] MEDS: LOSARTAN POTASSIUM 50 MG TAB PO SCH (10:01)
[2019-01-29] MEDS: FAMOTIDINE 20 MG in SYRINGE 3 ML IV SCH ×2 (10:08→21:14)
--- NOTE | 2019-01-29 14:35 | History & Physical Report ---
Date of Service January 29, 2019 History of Present Illness Chief Complaint: anemia Primary Care Provider: Dallas Jacobo MD For EGD Allergies Allergy/AdvReac Type Severity Reaction Status Date / Time amoxicillin Allergy Severe HIVES; Verified 01/27/19 22:48 ANGIOEDEMA lisinopril Allergy Mild HIVES Verified 01/27/19 22:48 Penicillins Allergy Mild HIVES Verified 01/27/19 22:48 Home Medications Home Medications Medication Instructions Recorded Confirmed Type aspirin 81 mg tablet,delayed 81 mg PO DAILY #30 tab 10/02/18 01/27/19 Rx release escitalopram 10 mg tablet 10 mg PO DAILY #30 tab 10/02/18 01/27/19 Rx allopurinol 100 mg tablet 100 mg PO DAILY #30 tab 10/07/18 01/27/19 Rx atorvastatin 10 mg tablet 10 mg PO DAILY #30 tab 10/07/18 01/27/19 Rx dutasteride 0.5 mg capsule 0.5 mg PO DAILY #90 cap 10/07/18 01/27/19 Rx ranitidine 150 mg tablet 150 mg PO BID #60 tab 11/10/18 01/27/19 Rx cilostazol 100 mg tablet 100 mg PO BID #60 tab 12/12/18 01/27/19 Rx ferrous sulfate 325 mg (65 mg 325 mg PO DAILY #30 tab 01/05/19 01/27/19 Rx iron) tablet ergocalciferol (vitamin D2) 50,000 units PO MONTHLY 01/11/19 01/27/19 History furosemide 20 mg PO 2XWK 01/11/19 01/27/19 History losartan 50 mg PO DAILY 01/11/19 01/27/19 History amlodipine [Norvasc] 5 mg PO QAM #30 tab 01/15/19 01/27/19 Rx magnesium chloride 256 mg PO DAILY #120 tab 01/15/19 01/27/19 Rx potassium chloride 20 meq PO BID #60 tab 01/15/19 01/27/19 Rx Past Med/Surg History Medical History Hypokalemia (Chronic) Hypomagnesemia (Acute) Depression (Acute) Colon cancer (Chronic) BPH (benign prostatic hyperplasia) (Acute) Aneurysm of abdominal aorta (Chronic) Carotid artery stenosis (Acute) Diabetes mellitus (Acute) Diabetic neuropathy (Acute) Hyperlipidemia (Acute) Hypertension (Chronic) Non-small cell lung cancer (Acute) Lower & Upper PAD (peripheral artery disease) (Acute) Second degree AV block (Acute) 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 gout (Resolved) Acid reflux disease with ulcer (Inactive) Anemia (Inactive) Lung nodule (Inactive) Pulmonary emphysema (Inactive) Vitamin D deficiency (Inactive) Surgical History H/O hernia repair History of AAA (abdominal aortic aneurysm) repair History of appendectomy History of cholecystectomy History of colon surgery History of lung surgery Social History Preferred Language: Ukrainian Communication Ability: Effective Custody Assistant Required: No Beliefs That Will Affect Care: None marital status: / Current Living Situation: Alone Feels Safe at Home: Yes Safety Concerns: Feels Safe At This Time Smoking Status: Former smoker Cigarettes Per Day: 20 ; Hx Alcohol Use: No Hx Substance Use: No Physical Exam Constitutional: well developed and well nourished ENMT: Mouth: + edentulous Respiratory: normal respiratory effort Cardiovascular: Rate/Rhythm: regular rate and regular rhythm Gastrointestinal (Abdomen): Percussion/Palpation: abdomen soft Results & Data Vital Signs (Past 12 Hours) Vital Signs Temp Pulse Resp BP Pulse Ox 01/29/19 11:08 36.4 C L 67 18 152/84 H 99 01/29/19 07:43 36.4 C L 68 19 157/68 H 99 01/29/19 03:40 36.5 C 89 18 115/66 98 Code Status & VTE Plan VTE Prophylaxis Plan VTE Prophylaxis will be ordered: Yes
--- NOTE | 2019-01-29 14:48 | Anesthesiology Consultation ---
Date of Service January 29, 2019 Assessment & Plan (1) Encounter for pre-operative examination: Chart Review Chart Review: Acceptable Risk for Surgery and Patient NOT seen in Pre Admission Testing Consults Requested none History Surgery Operation Date: 01/29/19 09:00 Proposed Procedures p Esophagogastroduodenoscopy Dr Raul Carter Height/Weight Height: 5 ft 10 in Weight: 69.6 kg Allergies Allergy/AdvReac Type Severity Reaction Status Date / Time amoxicillin Allergy Severe HIVES; Verified 01/27/19 22:48 ANGIOEDEMA lisinopril Allergy Mild HIVES Verified 01/27/19 22:48 Penicillins Allergy Mild HIVES Verified 01/27/19 22:48 Medications Home Medications Medication Instructions Recorded Confirmed Last Taken aspirin 81 mg tablet,delayed 81 mg PO DAILY #30 tab 10/02/18 01/27/19 01/27/19 10:00 release escitalopram 10 mg tablet 10 mg PO DAILY #30 tab 10/02/18 01/27/19 01/27/19 10:00 allopurinol 100 mg tablet 100 mg PO DAILY #30 tab 10/07/18 01/27/19 01/27/19 09:00 atorvastatin 10 mg tablet 10 mg PO DAILY #30 tab 10/07/18 01/27/19 01/27/19 10:00 dutasteride 0.5 mg capsule 0.5 mg PO DAILY #90 cap 10/07/18 01/27/19 01/27/19 10:00 ranitidine 150 mg tablet 150 mg PO BID #60 tab 11/10/18 01/27/19 01/27/19 10:00 cilostazol 100 mg tablet 100 mg PO BID #60 tab 12/12/18 01/27/19 01/27/19 10:00 ferrous sulfate 325 mg (65 mg 325 mg PO DAILY #30 tab 01/05/19 01/27/19 01/27/19 10:00 iron) tablet ergocalciferol (vitamin D2) 50,000 units PO MONTHLY 01/11/19 01/27/19 01/13/19 furosemide 20 mg PO 2XWK 01/11/19 01/27/19 01/08/19 losartan 50 mg PO DAILY 01/11/19 01/27/19 01/27/19 10:00 amlodipine [Norvasc] 5 mg PO QAM #30 tab 01/15/19 01/27/19 01/27/19 10:00 magnesium chloride 256 mg PO DAILY #120 tab 01/15/19 01/27/19 01/27/19 09:00 potassium chloride 20 meq PO BID #60 tab 01/15/19 01/27/19 01/27/19 10:00 Active Medications Generic Name Dose Route Start Last Admin Trade Name Timothyq PRN Reason Stop Dose Admin Allopurinol 100 mg 01/28/19 09:00 01/29/19 10:00 Zyloprim PO 02/27/19 08:59 100 mg DAILY SHAYY Administration Aspirin 81 mg 01/28/19 09:00 01/28/19 08:14 Ecotrin Ectab PO 02/27/19 08:59 81 mg DAILY SHAYY Administration Atorvastatin Calcium 10 mg 01/28/19 09:00 01/29/19 10:01 Lipitor PO 02/27/19 08:59 10 mg DAILY SHAYY Administration Cilostazol 100 mg 01/27/19 23:55 01/28/19 22:04 Pletal PO 02/26/19 23:54 100 mg BID SHAYY Administration Escitalopram Oxalate 10 mg 01/28/19 09:00 01/29/19 10:00 Lexapro Tab PO 02/27/19 08:59 10 mg DAILY SHAYY Administration Ferrous Sulfate 325 mg 01/28/19 09:00 01/29/19 09:59 Feosol PO 02/27/19 08:59 325 mg DAILY SHAYY Administration Famotidine 20 mg/ Syringe 5 mls @ 2.5 mls/min 01/28/19 21:00 01/29/19 10:08 IV 02/27/19 20:59 2.5 mls/min BID SHAYY Administration Losartan Potassium 50 mg 01/28/19 09:00 01/29/19 10:01 Cozaar PO 02/27/19 08:59 50 mg DAILY SHAYY Administration Magnesium Chloride 256 mg 01/28/19 09:00 01/29/19 10:00 Slow-Mag PO 02/27/19 08:59 256 mg DAILY SHAYY Administration Miscellaneous 1 ea 01/28/19 08:00 01/29/19 12:38 Order Awaiting Action N/A 02/27/19 07:59 Not Given QS SHAYY Nitroglycerin 0.4 mg 01/27/19 23:55 01/28/19 10:37 Nitrostat SL 02/26/19 23:54 0.4 mg UD PRN Administration Chest Pain Ondansetron HCl 4 mg 01/27/19 23:55 01/28/19 20:06 Zofran IV 02/26/19 23:54 4 mg Q6H PRN Administration Nausea NPO Date Last Intake of Fluids: 01/28/19 Time Last Intake of Fluids: 23:59 Date Last Intake of Solids: 01/28/19 Time Last Intake of Solids: 23:59 Past Medical History Medical History Hypokalemia (Chronic) Hypomagnesemia (Acute) Depression (Acute) Colon cancer (Chronic) BPH (benign prostatic hyperplasia) (Acute) Aneurysm of abdominal aorta (Chronic) Carotid artery stenosis (Acute) Diabetes mellitus (Acute) Diabetic neuropathy (Acute) Hyperlipidemia (Acute) Hypertension (Chronic) Non-small cell lung cancer (Acute) Lower & Upper PAD (peripheral artery disease) (Acute) Second degree AV block (Acute) 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 gout (Resolved) Acid reflux disease with ulcer (Inactive) Anemia (Inactive) Lung nodule (Inactive) Pulmonary emphysema (Inactive) Vitamin D deficiency (Inactive) Past Family History Family History Father COPD (chronic obstructive pulmonary disease) Cancer lung cancer Mother Cancer lung Brother Hypertension COPD (chronic obstructive pulmonary disease) Son Cancer liver Past Surgical History Surgical History H/O hernia repair History of AAA (abdominal aortic aneurysm) repair History of appendectomy History of cholecystectomy History of colon surgery History of lung surgery Social History Smoking Status: Former smoker Smoking cigarettes per day: 20 Hx Alcohol Use: No Hx Substance Use: No Physical Exam Vital Signs Last Vital Signs Temp 36.7 C 01/29/19 14:32 Pulse 62 01/29/19 14:32 Resp 16 01/29/19 14:32 BP 148/72 H 01/29/19 14:32 Pulse Ox 95 01/29/19 14:32 Testing Laboratory Results 01/29/19 06:03 01/29/19 06:03
[2019-01-29] MEDS ORDERED: ePHEDrine sulfate 50 MG/ML AMP IV PRN (14:52)
[2019-01-29] MEDS ORDERED: ATROPINE SULFATE 0.1 MG/ML 10ML SYR IV PRN (14:52)
--- NOTE | 2019-01-29 15:11 | GI REPORT ---
Patient Name: Salomón Mckeon Procedure Date: 01/29/2019 2:43 PM Date of : 1930 Admit Type: Inpatient Age: 89 Gender: Male Attending MD: King Carter MD Procedure: Upper GI endoscopy Providers: King Carter MD Referring MD: Norman Amin Md Indications: Iron deficiency anemia secondary to chronic blood loss, Heme positive stool Medicines: Propofol total dose 90 mg IV, Lidocaine 60 mg IV Complications: No immediate complications. Estimated Blood Loss: Estimated blood loss: none. Estimated blood loss was minimal. Procedure: Pre-Anesthesia Assessment: - Prior to the procedure, a History and Physical was performed, and patient medications, allergies and sensitivities were reviewed. The patient's tolerance of previous anesthesia was reviewed. - The risks and benefits of the procedure and the sedation options and risks were discussed with the patient. All questions were answered and informed consent was obtained. After obtaining informed consent, the endoscope was passed under direct vision. Throughout the procedure, the patient's blood pressure, pulse, and oxygen saturations were monitored continuously. The Endoscope was introduced through the mouth, and advanced to the second part of duodenum. The upper GI endoscopy was accomplished without difficulty. The patient tolerated the procedure well. Findings: The Z-line was regular and was found 36 cm from the incisors. LA Grade C (one or more mucosal breaks continuous between tops of 2 or more mucosal folds, less than 75% circumference) esophagitis with no bleeding was found. Many non-bleeding cratered gastric ulcers with pigmented material were found in the gastric antrum. The largest lesion was 5 mm in largest dimension. A single 4 mm sessile polyp with no bleeding was found in the second portion of the duodenum. The polyp was removed with a cold biopsy forceps. Resection and retrieval were complete. Estimated blood loss was minimal. Impression: - Z-line regular, 36 cm from the incisors. - LA Grade C reflux esophagitis. - Non-bleeding gastric ulcers with pigmented material. - A single duodenal polyp. Resected and retrieved. Recommendation: - [facility]. - Await pathology results. King Carter M.D. King Carter MD 01/29/2019 3:11:21 PM This report has been signed electronically. Note Initiated On: 01/29/2019 2:43 PM Number of Addenda: 0 I attest to the content of the Intraoperative Record and orders documented therein, exceptions below {[id number]}
--- NOTE | 2019-01-29 15:24 | Progress Note ---
DATE: 01/29/2019 REASON FOR EVALUATION: Anemia and heme positive stool. The patient underwent an EGD today for the above symptoms. The patient's aspirin is being held. He was found to have grade C esophagitis as well as multiple antral ulcers which were small and had heme associated with them, most likely these were due to his aspirin. The duodenum was notable for his 4 mm polyp that was removed with biopsy forceps. IMPRESSION: The patient has anemia, most likely due to his multiple antral ulcers. I plan on beginning Protonix 40 mg a day and Carafate 4 times a day and continue to hold his aspirin to get these ulcers healed. Biopsy in the small intestine results should be available in a few days, but appears benign.
[2019-01-29] MEDS ORDERED: LIDOCAINE HCL 2% 2 ML VIAL/AMP(20MG/ML) INFIL ONE (15:28)
[2019-01-29] MEDS ORDERED: PROPOFOL IV EMULSION 10 MG/ML 20 ML VIAL IV ONE (15:28)
--- NOTE | 2019-01-29 15:37 | Anesthesiology Progress Note ---
Date of Service January 29, 2019 Anesthesia Post Procedure Vital Signs Vital Signs: Temp Pulse Pulse Pulse Resp BP BP 01/29/19 15:35 61 16 122/67 01/29/19 15:15 59 L 16 104/64 01/29/19 14:32 36.7 C 62 16 148/72 H 01/29/19 11:08 36.4 C L 67 18 152/84 H 01/29/19 07:43 36.4 C L 68 19 157/68 H 01/29/19 03:40 36.5 C 89 18 115/66 01/29/19 00:00 84 01/28/19 23:04 36.8 C 68 18 167/56 H 01/28/19 19:37 36.6 C 78 18 153/82 H Pulse Ox 01/29/19 15:35 99 01/29/19 15:15 100 01/29/19 14:32 95 01/29/19 11:08 99 01/29/19 07:43 99 01/29/19 03:40 98 01/29/19 00:00 01/28/19 23:04 98 01/28/19 19:37 99 Transfer of Care Handoff Completed per policy Notes Mental Status: alert / awake / arousable Patient Amnestic to Procedure: Yes Nausea / Vomiting: adequately controlled Pain: adequately controlled Airway Patency, RR, SpO2: stable & adequate BP & HR: stable & adequate Hydration State: stable & adequate Anesthetic Complications: no major complications apparent and Pt Satisfied with anesthetic care
[2019-01-29] MEDS: SUCRALFATE 1 GM/10 ML UDC PO SCH ×2 (16:14→21:11)
--- NOTE | 2019-01-29 23:25 | Hospitalist Progress Note ---
Date of Service January 29, 2019 Assessment & Plan (1) Precordial chest pain: Secondary to reflux, esophagitis and GI bleeding. See below (2) GI bleed: PPI and Carafate use as per GI EGD today showed esophagitis, many gastric ulcers, single polyp (to be followed up in clinic) (3) GERD (gastroesophageal reflux disease): Pantoprazole and carafate as per GI d/c amlodipine as recently started and may have exacerbated reflux (4) Hypertension: D/c amlodipine and lasix as above. Monitor (5) Hyperlipidemia: Continue atorvastatin 10 mg p.o. daily (6) PAD (peripheral artery disease): Continue to hold pletal and aspirin pending severity of bleed. Discussed with Dr Carter - to be held for 1-2 weeks. (7) Stage III chronic kidney disease: At baseline. (8) Depression: Continue escitalopram 10 mg p.o. daily. (9) BPH (benign prostatic hyperplasia): Continue dutasteride 0.5 mg p.o. daily (10) DVT prophylaxis: Defer chemical prophylaxis due to acute GI bleed SCDs PT/OT Subjective Patient seen after EGD today. Doing well. He denies any changes to his chronic diarrhea. No further episodes of chest pain, diaphoresis or vomiting. Review of Systems Review of Systems: All systems reviewed & are unremarkable except as noted in HPI & below Physical Exam Constitutional: well developed and well nourished; no acute distress Eyes: + anicteric sclerae and PERRL Neck: normal visual inspection and trachea midline Respiratory: normal respiratory effort, lungs clear to auscultation Cardiovascular: Rate/Rhythm: regular rate and regular rhythm Heart Sounds: no murmur Gastrointestinal (Abdomen): Inspection/Auscultation: normal bowel sounds Percussion/Palpation: abdomen soft; abdomen nontender, no guarding and abdomen not rigid Musculoskeletal: no cyanosis or clubbing, extremities motor strength 5/5 Skin: no rashes, warm and dry Neurologic: moves all extremities Psychiatric: A+Ox3, euthymic affect Results & Data Vital Signs (Past 12 Hours) Vital Signs Temp Pulse Resp BP BP Pulse Ox Pulse Ox 01/29/19 19:29 97.7 F 68 18 156/85 H 99 01/29/19 16:48 96 01/29/19 15:47 61 16 129/60 99 01/29/19 15:35 61 16 122/67 99 01/29/19 15:15 59 L 16 104/64 100 01/29/19 14:32 98.1 F 62 16 148/72 H 95 PG Care Time/CCT Total # of Minutes Spent Total Time Spent with Patient: Total time spent is greater than 50% in coordination of care (as documented) at patient's floor/unit and/or counseling patient: (1) BPH (benign prostatic hyperplasia) Lower urinary tract symptom presence: symptoms absent Qualified Code(s): N40.0 - Benign prostatic hyperplasia without lower urinary tract symptoms (2) GI bleed GI bleed type/associated pathology: unspecified gastrointestinal hemorrhage type Qualified Code(s): K92.2 - Gastrointestinal hemorrhage, unspecified (3) Depression Active/Remission status: in full remission Depression Type: major depressive disorder Major depression recurrence: unspecified whether recurrent Qualified Code(s): F32.5 - Major depressive disorder, single episode, in full remission (4) GERD (gastroesophageal reflux disease) Esophagitis presence: with esophagitis Qualified Code(s): K21.0 - Gastro- esophageal reflux disease with esophagitis (5) Hypertension Hypertension type: unspecified Qualified Code(s): I10 - Essential (primary) hypertension
[2019-01-30] MEDS: MAGNESIUM CHLORIDE 64MG DELAYED REL TAB PO SCH (07:46)
[2019-01-30] MEDS: allopurinoL 100 MG TAB PO SCH (07:46)
[2019-01-30] MEDS: SUCRALFATE 1 GM/10 ML UDC PO SCH ×2 (07:46→12:39)
[2019-01-30] MEDS: FERROUS SULFATE 325 MG TAB PO SCH (07:46)
[2019-01-30] MEDS: LOSARTAN POTASSIUM 50 MG TAB PO SCH (07:47)
[2019-01-30] MEDS: ATORVASTATIN 10 MG TAB PO SCH (07:47)
[2019-01-30] MEDS: ESCITALOPRAM OXALATE 10 MG TAB PO SCH (07:47)
--- NOTE | 2019-01-30 07:51 | Anesthesiology Progress Note ---
Date of Service January 30, 2019 Anesthesia Post Procedure Vital Signs Vital Signs: Temp Pulse Pulse Resp BP BP Pulse Ox 01/30/19 02:54 36.5 C 70 17 152/79 H 98 01/29/19 23:30 36.6 C 75 18 138/74 98 01/29/19 19:29 36.5 C 68 18 156/85 H 99 01/29/19 16:48 01/29/19 15:47 61 16 129/60 99 01/29/19 15:35 61 16 122/67 99 01/29/19 15:15 59 L 16 104/64 100 01/29/19 14:32 36.7 C 62 16 148/72 H 95 01/29/19 11:08 36.4 C L 67 18 152/84 H 99 Pulse Ox 01/30/19 02:54 01/29/19 23:30 01/29/19 19:29 01/29/19 16:48 96 01/29/19 15:47 01/29/19 15:35 01/29/19 15:15 01/29/19 14:32 01/29/19 11:08 Notes Mental Status: alert / awake / arousable and participated in evaluation Nausea / Vomiting: adequately controlled Pain: adequately controlled Airway Patency, RR, SpO2: stable & adequate BP & HR: stable & adequate Hydration State: stable & adequate
[2019-01-30] MEDS: FAMOTIDINE 20 MG in SYRINGE 3 ML IV SCH (07:55)
[2019-01-30] MEDS ORDERED: PANTOprazole 40 MG TAB PO SCH (09:00)
[2019-01-30 09:07] LABS: BUN Creatinine Ratio 14.7 (10-20); Calcium 9.1 mg/dl (8.5-10.1); Creatinine Clr Calc Pharmacy 27.1 ml/min; Est GFR (African American) 37.1; Potassium 4.3 mmol/L (3.5-5.1)
[2019-01-30] MEDS: AVODART~ORDER AWAITING ACTION SCH (09:23)
[2019-01-30 09:27] LABS: Hematocrit (blood only) 36.4 % (42-52); Hemoglobin 11.3 g/dL (14.0-18.0); Mean Corpuscular Hemoglobin 27.2 pg (25-34); Mean Corpuscular Volume 87.7 fL (80-100); Platelet Count 124 K/uL (130-400); Platelet Estimate Decreased (Normal); RDW Coefficient of Variation 17.9 % (11.5-14.5); RDW Standard Deviation 57.5 fL (36.4-46.3); Red Blood Count 4.15 M/uL (4.7-6.1); White Blood Count 6.15 K/uL (4.8-10.8)
--- NOTE | 2019-01-30 12:01 | Discharge Summary ---
Date of Service January 30, 2019 Admission HPI Per Admitting Provider The patient is an 89-year-old male with a past medical history including peripheral arterial disease, hypertension, GERD, gout, stage III chronic kidney disease and depression, who presents to the emergency department with complaint of precordial chest pain, that went across his chest. Patient reports that the pain began at rest, and was relieved by the time he arrived to the emergency department. He had received 4 baby aspirin in route given by EMS. He has no associated shortness of breath. He denies any recent travels or sick exposures. He has not had this type pain in the past. Admission Exam Per Admitting Provider The patient is awake, alert and oriented 3, well developed and well nourished, normocephalic and atraumatic, lying in bed and in no acute distress. HEENT--PERRL, EOMI, mucous membranes and oropharynx normal. Neck--supple. No JVD. No bruits. Thyroid normal, trachea midline, no adenopathy. Heart--normal S1 and S2. No murmurs, rubs or gallops. Lungs--clear bilaterally, no respiratory distress, no accessory muscle use. Abdomen--normal bowel sounds and soft. Nontender. Nondistended. Extremities--no cyanosis or clubbing. No edema. There are good distal pulses b/l. Dermatologic--normal skin turgor, normal color, no abnormal lymph nodes, no rash. Neurologic--cranial nerves II through XII grossly intact. Rheumatologic--normal range of motion. Psychiatric--normal affect. Principal Diagnosis Gastric ulcers GERD Hypertension Discharge Exam Constitutional well developed and well nourished; no acute distress Eyes + anicteric sclerae; normal pupil size Neck normal visual inspection and trachea midline Respiratory normal respiratory effort, lungs clear to auscultation Cardiovascular Rate/Rhythm: regular rate and regular rhythm Heart Sounds: no murmur Gastrointestinal (Abdomen) Inspection/Auscultation: normal bowel sounds Percussion/Palpation: abdomen soft; abdomen nontender and no guarding Musculoskeletal no cyanosis or clubbing, extremities motor strength 5/5 Skin no rashes, warm and dry Neurologic moves all extremities and awake; no focal motor deficits and not confused Psychiatric A+Ox3, euthymic affect Discharge Data Allergies Allergy/AdvReac Type Severity Reaction Status Date / Time amoxicillin Allergy Severe HIVES; Verified 02/08/19 23:59 ANGIOEDEMA lisinopril Allergy Mild HIVES Verified 02/08/19 23:59 Penicillins Allergy Mild HIVES Verified 02/08/19 23:59 Consultations 01/27/19 21:50 ED Decision to Admit Stat 01/27/19 23:55 Consult Case Management - Discharge Planning Routine 01/28/19 08:50 Consult Cardiology Routine 01/28/19 11:57 Consult Gastroenterology Routine Procedures Performed Operation Date: 01/29/19 09:00 Actual Procedures p EGD Biopsy Cytology - [facility] Course (1) Peptic ulcer disease: 89 year old male with known GERD and prior history of gastric ulcers admission for chest pain and vomiting. Underwent EGD and diagnosed with gastritis and gastric ulcers due to aspirin use. Both Pletal and aspirin have been discontinued at least for the next 1-2 weeks. Will follow up with gastroenterology to discuss restarting these or switching aspirin to clopido grel. Started on pantoprazole and sucralfate for gastric ulcers. Amlodipine was discontinued (recently started on last admission) due to concern this made reflux worse causing his chest pain. Will follow up with PCP regarding his blood pressure. (2) Precordial chest pain: (3) GI bleed: (4) GERD (gastroesophageal reflux disease): (5) Hypertension: (6) Hyperlipidemia: Continue atorvastatin 10 mg p.o. daily (7) PAD (peripheral artery disease): (8) Stage III chronic kidney disease: (9) BPH (benign prostatic hyperplasia): Continue dutasteride 0.5 mg p.o. daily Total Time Total Time Spent Total Time Spent (In Minutes): 45 Total Time Includes: Examination of the Patient, Discharge Planning, Medication Reconciliation and Communication With Other Providers Discharge Plan Discharge Items Patient Disposition: Home - Home Health Services Reason For Visit: CHEST PAIN Discharge Diagnosis: Gastric ulcers GERD Hypertension Activity: Resume your previous activity Non-emergency contact: Primary Care Provider and [employer]ter Call non-emergency contact if: you have any medication questions and your symptoms worsen Follow-up/Referrals: Dallas Jacobo MD [Primary Care Provider] - 02/05/19 10:00 am (Please, follow up at [facility] with Dr. Jacobo on February 05 at 10:00 am. *If you need to change this appointment, call the office at [phone].) King Carter [Physician] - Diet: Regular Addtl Attending Provider Instructions: You were admitted with chest pain and vomiting. Diagnosed with gastritis and gastric ulcers due to aspirin use. Both Pletal and aspirin have been discontinued at least for the next 1-2 weeks, you will follow up with gastroenterology to discuss restarting these or switching aspirin to clopidogrel. You were also started on pantoprazole and sucralfate, please take as prescribed below. Your amlodipine was discontinued (recently started on last admission) due to concern this made your gastroesophageal reflux worse causing your chest pain. Please follow up with your primary care provider regarding this. Pending Studies at Discharge: No Stand-Alone Forms: My [facility] Medications and DC Order Prescriptions: New sucralfate 100 mg/mL Suspension 10 ml PO ACHS 30 Days Qty: 420 RF: 0 ondansetron 4 mg film 4 mg PO Q6H PRN (Reason: nausea and vomiting) 14 Days Qty: 30 RF: 0 pantoprazole 40 mg tablet,delayed release (DR/EC) 40 mg PO QAM 30 Days Qty: 30 RF: 0 Continued ferrous sulfate 325 mg (65 mg iron) tablet 325 mg PO DAILY Qty: 30 RF: 5 escitalopram oxalate 10 mg tablet 10 mg PO DAILY Qty: 30 RF: 2 allopurinol 100 mg tablet 100 mg PO DAILY Qty: 30 RF: 0 atorvastatin 10 mg tablet 10 mg PO DAILY Qty: 30 RF: 0 dutasteride 0.5 mg capsule 0.5 mg PO DAILY Qty: 90 RF: 0 losartan 50 mg tablet 50 mg PO DAILY RF: 0 furosemide 20 mg tablet 20 mg PO 2XWK RF: 0 ergocalciferol (vitamin D2) 50,000 unit capsule 50,000 units PO MONTHLY RF: 0 potassium chloride 20 mEq tablet extended release 20 meq PO BID Qty: 60 RF: 0 magnesium chloride 64 mg tablet,delayed release (DR/EC) 256 mg PO DAILY Qty: 120 RF: 0 Discontinued cilostazol 100 mg tablet 100 mg PO BID Qty: 60 RF: 3 aspirin [Adult Low Dose Aspirin] 81 mg tablet,delayed release (DR/EC) 81 mg PO DAILY Qty: 30 RF: 2 amlodipine [Norvasc] 5 mg Tablet 5 mg PO QAM Qty: 30 RF: 0 No Action cilostazol 100 mg tablet 100 mg PO BID RF: 0 famotidine 20 mg Tablet 20 mg PO BID 30 Days Qty: 60 RF: 2 Discharge Orders: Discharge Order (Routine); Ordered 01/30/19 Ordered By: Norman Clark/Other Patient Handouts: Ulcer Peptic Admission Data Admit Date/Time: 01/29/19 12:11 Attending Provider: Norman Amin Admit Provider: Saúl Frazier Primary Care Provider: Dallas Jacobo Other Providers: Saúl Frazier ; Zhang Amanda ; Gurdeep Brandon Other Interventions: Discharge Summary Assessment (RN) Last Done: 01/30/19 12:49 DC Date/Time DO NOT enter until pt leaves facility: 01/30/19 14:30
== END 2019-01-30 14:30 | disposition home health service (06) | DRG 392 ==
LOC: EDSEX → 2S 19:42 → ED 19:42 → SUATTDRO 23:09 → 2S 23:29

== ENCOUNTER 2019-02-04 20:03 | Inpatient (IN) ==
[2019-02-04] MEDS ORDERED: ONDANSETRON INJ 2 MG/ML 2 ML VIAL IV STA (21:35)
[2019-02-04 21:43] LABS: Basophils # (auto) 0.02 K/uL (0-0.2); Basophils % (auto) 0.1 %; Eosinophils # (auto) 0.01 K/uL (0-0.5); Eosinophils % (auto) 0.1 %; Hematocrit (blood only) 42.7 % (42-52); Hemoglobin 13.7 g/dL (14.0-18.0); Immature Granulocytes # (auto) 0.04 K/uL (0.00-0.02); Immature Granulocytes % (auto) 0.3 %; Lymphocytes # (auto) 0.47 K/uL (1.2-3.4); Lymphocytes % (auto) 3.2 %; Mean Corpuscular Hgb Conc 32.1 g/dL (32-36); Mean Corpuscular Volume 87.1 fL (80-100); Mean Platelet Volume 12.2 fL (7.4-10.4); Monocytes % (auto) 6.1 %; Neutrophils # (auto) 13.22 K/uL (1.4-6.5); Neutrophils % (auto) 90.2 %; Platelet Count 167 K/uL (130-400); RDW Coefficient of Variation 18.6 % (11.5-14.5); RDW Standard Deviation 59.6 fL (36.4-46.3); White Blood Count 14.66 K/uL (4.8-10.8)
[2019-02-04] MEDS ORDERED: SODIUM CHLORIDE 0.9% 1000ML 1,000 ML IV SCH (21:45)
[2019-02-04 21:53] LABS: Alanine Aminotransferase 30 U/L (12-78); Albumin Level 4.2 gm/dl (3.4-5.0); Aspartate Aminotransferase 12 U/L (15-37); Blood Urea Nitrogen 55 mg/dl (7-18); Calcium 9.8 mg/dl (8.5-10.1); Carbon Dioxide 19 mmol/L (21-32); Chloride 104 mmol/L (98-107); Est GFR (Non-African American) 17.2; Glucose 211 mg/dl (70-99); Lipase 194 U/L (73-393); Potassium 4.1 mmol/L (3.5-5.1); Sodium 136 mmol/L (136-145)
[2019-02-04 21:56] LABS: Alkaline Phosphatase 172 U/L (45-117); Bilirubin,Total 0.5 mg/dl (0.2-1); Globulin 4.2 gm/dl (2.5-4.0); Total Protein 8.4 gm/dl (6.4-8.2)
--- NOTE | 2019-02-04 22:16 | XRay Report ---
XR chest 1V portable CLINICAL HISTORY: 89 years-old Male presenting with epigastric pain. TECHNIQUE: Portable upright AP view of the chest was obtained. COMPARISON: 01/27/2019. FINDINGS: Atherosclerosis of the aortic arch. Cardiac silhouette mildly enlarged. Small right pleural effusion with bibasilar opacity. Left lung and pleural space clear. No pneumothorax. Degenerative changes of t he thoracic spine. Partially visualized endograft stent in the mid abdomen. IMPRESSION: 1. Unchanged small right pleural effusion and right basilar atelectasis or scarring. 2. Mild cardiomegaly. 3. No change from prior to suggest acute cardiopulmonary disease. Electronically signed by: Taurus Cortez M.D. 02/04/2019 10:15 PM
--- NOTE | 2019-02-05 01:19 | Emergency Department Note ---
Entered by Deedee Cabrera acting as a scribe for Gurdeep Brown MD History of Present Illness General Chief complaint: Vomiting Stated complaint: TROUBLE KEEPING FOOD DOWN Time Seen by Provider: 02/04/19 21:31 Source: patient Limitations: no limitations History of Present Illness Onset (ago): day(s) 2 Location: abdomen Severity: similar to prior episodes Pain Consistency: + other (persistent) Maximum Pain Intensity: 5 Quality: + other (vomiting) Associated symptoms: + other (abdominal pain, diarrhea); no chest pain The patient is an 89 year old male who presents to the Emergency Room with complaints of persistent vomiting for the past 2 days. He states that he was recently hospitalized for similar symptoms, noting that it was caused by a peptic ulcer. The patient complains of diarrhea, stating that his vomit and stools have had a black tint. He complains of mild abdominal pain. The patient denies any fevers, chest pain, and SOB. He states that he no longer takes Aspir in. Home Medications Home Medications Medication Instructions Recorded Confirmed Type escitalopram 10 mg tablet 10 mg PO DAILY #30 tab 10/02/18 02/04/19 Rx allopurinol 100 mg tablet 100 mg PO DAILY #30 tab 10/07/18 02/04/19 Rx atorvastatin 10 mg tablet 10 mg PO DAILY #30 tab 10/07/18 02/04/19 Rx dutasteride 0.5 mg capsule 0.5 mg PO DAILY #90 cap 10/07/18 02/04/19 Rx ferrous sulfate 325 mg (65 mg 325 mg PO DAILY #30 tab 01/05/19 02/04/19 Rx iron) tablet ergocalciferol (vitamin D2) 50,000 units PO MONTHLY 01/11/19 02/04/19 History furosemide 20 mg PO 2XWK 01/11/19 02/04/19 History losartan 50 mg PO DAILY 01/11/19 02/04/19 History magnesium chloride 256 mg PO DAILY #120 tab 01/15/19 02/04/19 Rx potassium chloride 20 meq PO BID #60 tab 01/15/19 02/04/19 Rx ondansetron 4 mg PO Q6H PRN 14 Days #30 ea 01/30/19 02/04/19 Rx pantoprazole 40 mg PO QAM 30 Days #30 tab 01/30/19 02/04/19 Rx sucralfate 10 ml PO ACHS 30 Days #420 ml 01/30/19 02/04/19 Rx cilostazol 100 mg PO BID 02/04/19 02/04/19 History Allergies Allergy/AdvReac Type Severity Reaction Status Date / Time amoxicillin Allergy Severe HIVES; Verified 02/04/19 23:12 ANGIOEDEMA lisinopril Allergy Mild HIVES Verified 02/04/19 23:12 Penicillins Allergy Mild HIVES Verified 02/04/19 23:12 Past Med/Surg History Medical History Hypokalemia (Chronic) Hypomagnesemia (Acute) Depression (Acute) Colon cancer (Chronic) BPH (benign prostatic hyperplasia) (Acute) Aneurysm of abdominal aorta (Chronic) Carotid artery stenosis (Acute) Diabetes mellitus (Acute) Diabetic neuropathy (Acute) Hyperlipidemia (Acute) Hypertension (Chronic) Non-small cell lung cancer (Acute) Lower & Upper PAD (peripheral artery disease) (Acute) Second degree AV block (Acute) 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 gout (Resolved) Acid reflux disease with ulcer (Inactive) Anemia (Inactive) Lung nodule (Inactive) Pulmonary emphysema (Inactive) Vitamin D deficiency (Inactive) Surgical History H/O hernia repair History of AAA (abdominal aortic aneurysm) repair History of appendectomy History of cholecystectomy History of colon surgery History of lung surgery Family History Father COPD (chronic obstructive pulmonary disease) Cancer lung cancer Mother Cancer lung Brother Hypertension COPD (chronic obstructive pulmonary disease) Son Cancer liver Social History Preferred Language: Sinhala Communication Ability: Effective Supply Technician Required: No Beliefs That Will Affect Care: None marital status: / Current Living Situation: Alone Other Information That Helps Us Care for You: No Feels Safe at Home: Yes Safety Concerns: Feels Safe At This Time Smoking Status: Former smoker Cigarettes Per Day: 20 ; Do You Dip or Chew Tobacco: No ; Hx Alcohol Use: No Hx Substance Use: No Review of Systems See HPI for pertinent positives & negatives. and A total of 10 systems reviewed and were otherwise negative Physical Exam Vital Signs Vital Signs - 24 hr 02/04/19 20:30 02/04/19 21:53 02/04/19 23:23 Temperature 36.4 C L Temperature Source Oral Sepsis Recent Fever Within 48 Hours No Sepsis New/Unexplained Change in Mental Status No Sepsis Action Taken by Nursing No Action Required Pulse Rate 84 Pulse Rate [Apical] 120 H 102 H Respiratory Rate 18 20 16 Respiratory Effort / Characteristics Non-Labored Spontaneous Respiratory Depth Normal Blood Pressure 132/80 Blood Pressure [Left Arm] 147/76 H 119/78 Blood Pressure Mean 97 Blood Pressure Mean [Left Arm] 99 91 Blood Pressure Position [Left Arm] Lying Pulse Oximetry 100 98 100 Oxygen Delivery Method Room Air Room Air Room Air General: Non-ill appearing slender, old male in no acute distress. HEENT: Normal cephalic atraumatic. Pupils are equal round and reactive to light. Extraocular movements are intact. Oropharynx is pink with moderately dry mucous membranes. No swelling of the mouth lips or tongue. Neck: Supple with a midline trachea. No meningeal signs or stiffness, no JVD or bruits. No Stridor. Chest: Clear to auscultation bilaterally. No wheezes or rhonchi. No increased work of breathing. Heart: regular rate and rhythm. Abdomen: Soft nontender, nondistended without rebound guarding or rigidity. Post-op surgical incisions, no tenderness. Extremities: No cyanosis clubbing or edema. No calf tenderness or asymmetry Spine/Back. Non tender to palpation. No CVA tenderness Skin: Good turgor without rashes. Neurologic exam: Cranial nerves two through 12 are intact. Motor and sensation are intact and symmetrical throughout. Course 2131: The patient was evaluated in room A12. A complete history and physical exam was performed. 0008: I reevaluated the patient, and he stated that he was feeling better. The patient's creatine is over 3. 0019: I spoke with Dr. Cierra Ocampo, [facility] hospitalist, about the patients case. She will further evaluate the patient. Administered Medications Allopurinol (Zyloprim) 100 mg PO DAILY [facility] Stop: 03/07/19 08:59 Last Admin: 02/05/19 09:01 Dose: 100 mg Documented by: [id number] Atorvastatin Calcium (Lipitor) 10 mg PO DAILY [facility] Stop: 03/07/19 08:59 Last Admin: 02/05/19 09:01 Dose: 10 mg Documented by: [id number] Escitalopram Oxalate (Lexapro Tab) 10 mg PO DAILY [facility] Stop: 03/07/19 08:59 Last Admin: 02/05/19 09:01 Dose: 10 mg Documented by: [id number] Ferrous Sulfate (Feosol) 325 mg PO DAILY [facility] Stop: 03/07/19 08:59 Last Admin: 02/05/19 09:01 Dose: 325 mg Documented by: [id number] Lactated Ringer's (Lr) 1,000 mls @ 100 mls/hr IV .Q10H [facility] Stop: 02/05/19 21:50 Last Admin: 02/05/19 02:36 Dose: 100 mls/hr Documented by: [id number] Famotidine 20 mg/ Syringe 5 mls @ 2.5 mls/min IV BID [facility] Stop: 03/07/19 08:59 Last Admin: 02/05/19 09:09 Dose: 2.5 mls/min Documented by: [id number] Insulin Aspart (Novolog Flexpen) 0 units SC ACHS [facility] Stop: 03/07/19 07:29 Last Admin: 02/05/19 09:07 Dose: Not Given Documented by: [id number] Cosigned by: [id number] Insulin Glargine (Lantus Solostar Pen) 5 units SC BID [facility] Stop: 03/07/19 08:59 Last Admin: 02/05/19 09:05 Dose: 5 units Documented by: [id number] Cosigned by: [id number] Magnesium Chloride (Slow-Mag) 256 mg PO DAILY [facility] Stop: 03/07/19 08:59 Last Admin: 02/05/19 09:04 Dose: Not Given Documented by: [id number] Miscellaneous (Order Awaiting Action) 1 ea N/A QS [facility] Stop: 03/07/19 02:59 Last Admin: 02/05/19 09:02 Dose: Not Given Documented by: [id number] Admin: 02/05/19 03:17 Dose: Not Given Documented by: [id number] Pantoprazole Sodium (Protonix) 40 mg PO BID [facility] Stop: 03/07/19 08:59 Last Admin: 02/05/19 09:02 Dose: 40 mg Documented by: [id number] Sucralfate (Carafate) 1 gm PO ACHS [facility] Stop: 03/07/19 07:29 Last Admin: 02/05/19 09:01 Dose: 1 gm Documented by: [id number] Discontinued Medications Sodium Chloride (Nss 1000ml) 1,000 mls @ 999 mls/hr IV .Q1H1M [facility] Stop: 02/04/19 22:45 Last Infusion: 02/04/19 23:01 Dose: 0 mls/hr Documented by: [id number] Admin: 02/04/19 21:53 Dose: 999 mls/hr Documented by: [id number] Ondansetron HCl (Zofran) 4 mg IV NOW STA Stop: 02/04/19 21:36 Last Admin: 02/04/19 21:53 Dose: 4 mg Documented by: [id number] Medical Decision Making Differential Diagnosis The differential diagnosis includes: dehydration, GI bleed, peptic ulcer disease, cardiac disease, infection, electrolyte or metabolic abnormality Medical Records Attestation: I reviewed the patient's medical records. Home Medications Current Medication List: was personally reviewed by me Laboratory Data Attestation: I reviewed the patient's lab results. Result diagrams: 02/05/19 02:01 02/05/19 02:01 Lab Results 02/04/19 02/04/19 02/04/19 Range/Units 21:23 21:23 21:44 WBC 14.66 H (4.8-10.8) K/uL RBC 4.90 (4.7-6.1) M/uL Hgb 13.7 L (14.0-18.0) g/dL Hct 42.7 (42-52) % MCV 87.1 (80-100) fL MCH 28.0 (25-34) pg MCHC 32.1 (32-36) g/dL RDW Std Deviation 59.6 H (36.4-46.3) fL RDW Coeff of Kelly 18.6 H (11.5-14.5) % Plt Count 167 (130-400) K/uL MPV 12.2 H (7.4-10.4) fL Immature Gran % (Auto) 0.3 % Neut % (Auto) 90.2 % Lymph % (Auto) 3.2 % Mason % (Auto) 6.1 % Eos % (Auto) 0.1 % Baso % (Auto) 0.1 % Immature Gran # (Auto) 0.04 H (0.00-0.02) K/uL Neut # (Auto) 13.22 H (1.4-6.5) K/uL Lymph # (Auto) 0.47 L (1.2-3.4) K/uL Mason # (Auto) 0.90 H (0.11-0.59) K/uL Eos # (Auto) 0.01 (0-0.5) K/uL Baso # (Auto) 0.02 (0-0.2) K/uL Sodium 136 (136-145) mmol/L Potassium 4.1 (3.5-5.1) mmol/L Chloride 104 (98-107) mmol/L Carbon Dioxide 19 L (21-32) mmol/L Anion Gap 13.0 H (3-11) BUN 55 H (7-18) mg/dl Creatinine 3.07 H (0.6-1.4) mg/dl Est Cr Clr Drug Dosing Not Reportable Est GFR ( Amer) 20.0 Est GFR (Non-Af Amer) 17.2 BUN/Creatinine Ratio 18.0 (10-20) Glucose 211 H (70-99) mg/dl Calcium 9.8 (8.5-10.1) mg/dl Total Bilirubin 0.5 (0.2-1) mg/dl AST 12 L (15-37) U/L ALT 30 (12-78) U/L Alkaline Phosphatase 172 H (45-117) U/L Total Protein 8.4 H (6.4-8.2) gm/dl Albumin 4.2 (3.4-5.0) gm/dl Globulin 4.2 H (2.5-4.0) gm/dl Albumin/Globulin Ratio 1.0 (0.9-2) Lipase 194 (73-393) U/L Blood Type A Negative Antibody Screen NEGATIVE Imaging Data Radiologist's Impression: Radiology results as stated below per my review and the radiologist's interpretation: XR chest 1V portable CLINICAL HISTORY: 89 years-old Male presenting with epigastric pain. TECHNIQUE: Portable upright AP view of the chest was obtained. COMPARISON: 01/27/2019. FINDINGS: Atherosclerosis of the aortic arch. Cardiac silhouette mildly enlarged. Small right pleural effusion with bibasilar opacity. Left lung and pleural space clear. No pneumothorax. Degenerative changes of the thoracic spine. Partially visualized endograft stent in the mid abdomen. IMPRESSION: 1. Unchanged small right pleural effusion and right basilar atelectasis or scarring. 2. Mild cardiomegaly. 3. No change from prior to suggest acute cardiopulmonary disease. Electronically signed by: Taurus Cortez M.D. 02/04/2019 10:15 PM ECG Data Attestation: I personally reviewed and interpreted this ECG as follows: Indication: vomiting Rate (beats per minute): 149 Rhythm: other (suspect normal sinus rhythm of bigeminy) Findings: + other (poor baseline, left axis deviation) Comparison ECG Date: from (01/29/19) Change: the following changes noted (rate has increased) Blood Pressure Blood Pressure Findings: Elevated blood pressure Blood Pressure Disposition: further management by hospitalist [facility] Narrative This patient comes in as described above. He was placed in room A12. He has had nausea, vomiting, diarrhea. He was just admitted and discharged in the hospital for similar complaints. During his previous stay, he did have endoscopy and was found to have peptic ulcer disease. He tells me he has had black stool as well as vomit at times though that has been going on chronically as well. He is been unable to keep any food down. No chest pain or abdominal pain. No fever or chills. No fall or trauma. IV access established and he was hydrated with a 1 liter IV normal saline bolus and multiple blood testing was obtained. His hemoglobin is stable. He does have significant renal ins ufficiency and his creatinine is up to over 3 when he left the hospital was 1.8. Clinically he looks very dry. His abdomen remains benign. I do think he needs to be admitted for IV hydration he was also given IV Zofran and seems to doing much better with this. He does need further evaluation and hydration. I have consulted the [facility] Hospitalist and they will see him in the ER for thes e measures. Impression & Plan Acute renal failure, Dehydration, Vomiting in adult, Peptic ulcer disease, Diarrhea Discharge Plan Visit Data *Final* Discharge Date/Time: 02/05/19 01:40 Chief Complaint: Vomiting Stated Complaint: TROUBLE KEEPING FOOD DOWN ED Provider: Gurdeep Brown Discharge Problem: Acute renal failure, Dehydration, Vomiting in adult, Peptic ulcer disease, Diarrhea Patient Disposition: Admitted As Inpatient Discharge Problem: Acute renal failure Qualifiers: Acute renal failure type: unspecified Qualified Code(s): N17.9 - Acute kidney failure, unspecified Diarrhea Qualifiers: Diarrhea type: unspecified type Qualified Code(s): R19.7 - Diarrhea, unspec ified The scribe's documentation has been prepared under my direction and personally reviewed by me in its entirety. I confirm that the note above accurately reflects all work, treatment, procedures, and medical decision making performed by me.
[2019-02-05] MEDS ORDERED: ALUMINUM/MAGNESIUM SUSP 30 ML UDC PO PRN (01:51)
[2019-02-05] MEDS ORDERED: DEXTROSE 50% 50 ML SYRINGE IV PRN (01:51)
[2019-02-05] MEDS ORDERED: ONDANSETRON INJ 2 MG/ML 2 ML VIAL IV PRN (01:51)
[2019-02-05] MEDS ORDERED: GLUCOSE 40% GEL 15 GM TUBE PO PRN (01:51)
[2019-02-05] MEDS ORDERED: GLUCAGON FOR INJ 1 MG VIAL SQ PRN (01:51)
[2019-02-05] MEDS ORDERED: CARBOHYDRATES FOR HYPOGLYCEMIA PO PRN (01:51)
[2019-02-05] MEDS ORDERED: GLUCOSE 10 TABS/TUBE PO PRN (01:51)
--- NOTE | 2019-02-05 01:52 | History & Physical Report ---
Date of Service February 05, 2019 Assessment & Plan (1) Vomiting in adult: Etiology uncertain. Patient unable to tolerate PO, dehydrated by clinical exam and laboratory evaluation. ?Gastroenteritis with nausea/vomiting/diarrhea. ?motility or mechanical complication - patient with recent EGD s/p biopsy. He reports vomiting dark liquid as well as having black BMs. Some concern for ongoing GIB. However, H/H up from prior - ?hemoconcentration in setting of dehydration -Admit to medical floor with telemetry -IVF and electrolyte repletion -Check Mg and Po4 -Zofran PRN -Check FOBT -Trend CBC -Consider GI consult Present on Admission?: Yes (2) Acute renal failure: BUN=55 and Cr=3.07, significantly increased from prior 27 and 1.8, respectively. K=4.1 and HCO3=19 which is near baseline for him. He reports making adequate urine, dark in color. ?Pre-renal in setting of vomiting, poor po tolerance. -Monitor renal function and electrolytes with BID BMP -Avoid nephrotoxins -Renal dosing where appropriate -Hold Lasix, Losartan -Check FeUrea -James placement for strict I/O monitoring -LR at 100mL/hr x 2 liters -Check UA Present on Admission?: Yes (3) Dehydration: IVF as above -Monitor renal function and electrolytes -Encourage PO intake if tolerated Present on Admission?: Yes (4) Peptic ulcer disease: S/p EGD during last admission. Bx of one polyp in duodenum - pathology revealed tubulovillous. As above, mild concern for ongoing bleed given dark liquid vomit. H/H stable, patient HD stable. -Continue Protonix, increase to 40mg po BID -Pepcid 20mg po BID -Carafate QID -Maalox PRN -Results of biopsy should be discussed with GI in the morning Present on Admission?: Yes (5) Diarrhea: Patient with chronic diarrhea. -IVF and electrolytes -Continue to monitor Present on Admission?: Yes (6) Gout: Chronic. Stable. No acute flare -Continue Allopurinol Present on Admission?: Yes (7) GERD (gastroesophageal reflux disease): As above -Continue Protonix and Carafate -Pepcid BID -Zofran PRN Present on Admission?: Yes (8) Depression: Chronic, stable -Continue Escitalopram Present on Admission?: Yes (9) BPH (benign prostatic hyperplasia): Chronic. Stable -Placing James catheter for I/O monitoring -Continue Dutasteride Present on Admission?: Yes (10) Diabetes mellitus: Chronic. BS elevated at 211. AIC=6.4 in December 2018 -Lantus 5u BID, ISS based on weight. -Goal blood sugar 100 - 140 Present on Admission?: Yes (11) Hyperlipidemia: Chronic -Continue Atorvastatin Present on Admission?: Yes (12) Hypertension: Blood pressure stable at present -Hold Lasix and Losartan in setting of HAYLEE on CKD -Continue to monitor Present on Admission?: Yes (13) PAD (peripheral artery disease): Hold Cilastazol for now F/E/N - LR at 100mL/hr x 2 liters, BMP BID to assess electrolytes and renal function, liquid diet as tolerated Ppx - holding chemoppx for now Code -Full Dispo - Admit to medical floor with telemetry. Repeat EKG on arrival to floor Present on Admission?: Yes History of Present Illness Chief Complaint: nausea/vomiting, diarrhea Primary Care Provider: Dallas Jacobo MD Tasneem Mckeon is a pleasant 89yo C male with multiple medical problems, notably PAD/HTN/GERD/CKD-III/HLP/DM. He was presented to the ER on 01/27/19 with chest discomfort. Also found with anemia and gastric occult positive. He had an EGD performed on 01/29/[address] Carter which revealed LA Grade C reflux esophagitis, many non-bleeding gastric ulcers with pigmented material and a single duodenal polyp which was resected (Pathology results show tubulovillous adenoma). He was discharged home in stable condition on 01/30/19 - started on Protonix 40mg po daily and Carafate QID. Patient presents today with recurrent nausea and vomiting. He states that he is unable to tolerate po intake. He has had multiple episodes of vomiting shortly after eating. Vomitus is typically food material and occasionally dark black in color. He denies abdominal pain, fullness or distention. He also has had multiple episodes of loose/black BMs, appx 2x daily. He has chronic diarrhea and does not feel that this is much different than prior. He denies CP/palpitaitons/dizziness/fatigue, denies syncope/lightheadedness. Denies pain or difficulty swallowing. He reports adequate UOP, dark in color. No blood. He has been taking his Protonix and Carafate as prescribed without difficulty. He has had some hoarseness since the EGD ER Course: Zofran, NSS Allergies Allergy/AdvReac Type Severity Reaction Status Date / Time amoxicillin Allergy Severe HIVES; Verified 02/04/19 23:12 ANGIOEDEMA lisinopril Allergy Mild HIVES Verified 02/04/19 23:12 Penicillins Allergy Mild HIVES Verified 02/04/19 23:12 Home Medications Home Medications Medication Instructions Recorded Confirmed Type escitalopram 10 mg tablet 10 mg PO DAILY #30 tab 10/02/18 02/04/19 Rx allopurinol 100 mg tablet 100 mg PO DAILY #30 tab 10/07/18 02/04/19 Rx atorvastatin 10 mg tablet 10 mg PO DAILY #30 tab 10/07/18 02/04/19 Rx dutasteride 0.5 mg capsule 0.5 mg PO DAILY #90 cap 10/07/18 02/04/19 Rx ferrous sulfate 325 mg (65 mg 325 mg PO DAILY #30 tab 01/05/19 02/04/19 Rx iron) tablet ergocalciferol (vitamin D2) 50,000 units PO MONTHLY 01/11/19 02/04/19 History furosemide 20 mg PO 2XWK 01/11/19 02/04/19 History losartan 50 mg PO DAILY 01/11/19 02/04/19 History magnesium chloride 256 mg PO DAILY #120 tab 01/15/19 02/04/19 Rx potassium chloride 20 meq PO BID #60 tab 01/15/19 02/04/19 Rx ondansetron 4 mg PO Q6H PRN 14 Days #30 ea 01/30/19 02/04/19 Rx pantoprazole 40 mg PO QAM 30 Days #30 tab 01/30/19 02/04/19 Rx sucralfate 10 ml PO ACHS 30 Days #420 ml 01/30/19 02/04/19 Rx cilostazol 100 mg PO BID 02/04/19 02/04/19 History Past Med/Surg History Medical History Hypokalemia (Chronic) Hypomagnesemia (Acute) Depression (Acute) Colon cancer (Chronic) BPH (benign prostatic hyperplasia) (Acute) Aneurysm of abdominal aorta (Chronic) Carotid artery stenosis (Acute) Diabetes mellitus (Acute) Diabetic neuropathy (Acute) Hyperlipidemia (Acute) Hypertension (Chronic) Non-small cell lung cancer (Acute) Lower & Upper PAD (peripheral artery disease) (Acute) Second degree AV block (Acute) 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 gout (Resolved) Acid reflux disease with ulcer (Inactive) Anemia (Inactive) Lung nodule (Inactive) Pulmonary emphysema (Inactive) Vitamin D deficiency (Inactive) Surgical History H/O hernia repair History of AAA (abdominal aortic aneurysm) repair History of appendectomy History of cholecystectomy History of colon surgery History of lung surgery Family History Father COPD (chronic obstructive pulmonary disease) Cancer lung cancer Mother Cancer lung Brother Hypertension COPD (chronic obstructive pulmonary disease) Son Cancer liver Social History Preferred Language: Czech Communication Ability: Effective [employer] Required: No Beliefs That Will Affect Care: None marital status: / Current Living Situation: Alone Feels Safe at Home: Yes Smoking Status: Former smoker Cigarettes Per Day: 20 ; Hx Alcohol Use: No Hx Substance Use: No Review of Systems Review of Systems: All systems reviewed & are unremarkable except as noted in HPI & below Physical Exam Physical Exam: General: patient resting comfortably, NAD, non-toxic in appearance, AA&O x 4 Skin: warm, dry, intact, no rashes or lesions HEENT: NC/AT, PERRL, EOMI, anicteric sclera, conjunctiva without injection, external ear normal to inspection and nontender, nares patent, moist mucus membranes, dentures in place, no oropharyngeal lesions, neck supple, trachea midline, no LAD, no thyromegaly, no JVD Heart: +S1/S2, regular, 94 bpm, 3/6 JOHN at 2nd right ICS across precordium Lungs: equal air entry bilaterally, no rales/rhonchi/wheezes Abd: +BS, soft, NT/ND, no masses/organomegaly/ascites, no epigastric tenderness Ext: warm, 2+ pulses in UE/LE bilaterally, no clubbing/cyanosis or edema Neuro: nonfocal, patient AA&O x 4, speech intact, no facial droop, moving all extremities on command with equal strength 5/5 Results & Data Vital Signs (Past 12 Hours) Vital Signs Temp Pulse Pulse Resp BP BP Pulse Ox 02/04/19 23:23 102 H 16 119/78 100 02/04/19 21:53 120 H 20 147/76 H 98 02/04/19 20:30 36.4 C L 84 18 132/80 100 Laboratory Results Lab Results 02/04/19 02/04/19 02/04/19 Range/Units 21:23 21:23 21:44 WBC 14.66 H (4.8-10.8) K/uL RBC 4.90 (4.7-6.1) M/uL Hgb 13.7 L (14.0-18.0) g/dL Hct 42.7 (42-52) % MCV 87.1 (80-100) fL MCH 28.0 (25-34) pg MCHC 32.1 (32-36) g/dL RDW Std Deviation 59.6 H (36.4-46.3) fL RDW Coeff of Kelly 18.6 H (11.5-14.5) % Plt Count 167 (130-400) K/uL MPV 12.2 H (7.4-10.4) fL Immature Gran % (Auto) 0.3 % Neut % (Auto) 90.2 % Lymph % (Auto) 3.2 % [place] % (Auto) 6.1 % Eos % (Auto) 0.1 % Baso % (Auto) 0.1 % Immature Gran # (Auto) 0.04 H (0.00-0.02) K/uL Neut # (Auto) 13.22 H (1.4-6.5) K/uL Lymph # (Auto) 0.47 L (1.2-3.4) K/uL [place] # (Auto) 0.90 H (0.11-0.59) K/uL Eos # (Auto) 0.01 (0-0.5) K/uL Baso # (Auto) 0.02 (0-0.2) K/uL Sodium 136 (136-145) mmol/L Potassium 4.1 (3.5-5.1) mmol/L Chloride 104 (98-107) mmol/L Carbon Dioxide 19 L (21-32) mmol/L Anion Gap 13.0 H (3-11) BUN 55 H (7-18) mg/dl Creatinine 3.07 H (0.6-1.4) mg/dl Est Cr Clr Drug Dosing Not Reportable Est GFR ( Amer) 20.0 Est GFR (Non-Af Amer) 17.2 BUN/Creatinine Ratio 18.0 (10-20) Glucose 211 H (70-99) mg/dl Calcium 9.8 (8.5-10.1) mg/dl Total Bilirubin 0.5 (0.2-1) mg/dl AST 12 L (15-37) U/L ALT 30 (12-78) U/L Alkaline Phosphatase 172 H (45-117) U/L Total Protein 8.4 H (6.4-8.2) gm/dl Albumin 4.2 (3.4-5.0) gm/dl Globulin 4.2 H (2.5-4.0) gm/dl Albumin/Globulin Ratio 1.0 (0.9-2) Lipase 194 (73-393) U/L Blood Type A Negative Antibody Screen NEGATIVE Diagnostic Findings XR chest 1V portable CLINICAL HISTORY: 89 years-old Male presenting with epigastric pain. TECHNIQUE: Portable upright AP view of the chest was obtained. COMPARISON: 01/27/2019. FINDINGS: Atherosclerosis of the aortic arch. Cardiac silhouette mildly enlarged. Small right pleural effusion with bibasilar opacity. Left lung and pleural space clear. No pneumothorax. Degenerative changes of the thoracic spine. Partially visualized endograft stent in the mid abdomen. IMPRESSION: 1. Unchanged small right pleural effusion and right basilar atelectasis or scarring. 2. Mild cardiomegaly. 3. No change from prior to suggest acute cardiopulmonary disease. Electronically signed by: Taurus Cortez M.D. 02/04/2019 10:15 PM Dictated: 02/04/192213 Transcribed: 02/04/192213 ECG Additional Comments: Undetermined rhythm, difficult to interpret - ?ST at 95 with ectopic atrial and ventricular beats, left axis deviation, QRS=76, MOy=310, RBBB Code Status & VTE Plan Code Status FULL PG Care Time/CCT Total # of Minutes Spent Total Time Spent with Patient: Total time spent is greater than 50% in coordination of care (as documented) at patient's floor/unit and/or counseling patient: (1) BPH (benign prostatic hyperplasia) Lower urinary tract symptom presence: symptoms absent Qualified Code(s): N40.0 - Benign prostatic hyperplasia without lower urinary tract symptoms (2) Diabetes mellitus Diabetes mellitus complication status: with other specified complication Diabetes mellitus skilled nursing insulin use: unspecified terminal press operator insulin use status Diabetes mellitus type: other specified (including ISIDRA) Qualified Code(s): E13.69 - Other specified diabetes mellitus with other specified complication (3) Gout Gout site: unspecified site Gout etiology: unspecified cause Chronicity: un specified Qualified Code(s): M10.9 - Gout, unspecified (4) Acute renal failure Acute renal failure type: unspecified Qualified Code(s): N17.9 - Acute kidney failure, unspecified (5) Depression Active/Remission status: in full remission Depression Type: major depressive disorder Major depression recurrence: unspecified whether recurrent Qualified Code(s): F32.5 - Major depressive disorder, single episode, in full remission (6) Diarrhea Diarrhea type: unspecified type Qualified Code(s): R19.7 - Diarrhea, unspecified (7) Hyperlipidemia Hyperlipidemia type: unspecified Qualified Code(s): E78.5 - Hyperlipidemia, unspecified (8) GERD (gastroesophageal reflux disease) Esophagitis presence: esophagitis presence not specified Qualified Code(s): K21.9 - Gastro-esophageal reflux disease without esophagitis (9) Hypertension Hypertension type: unspecified Qualified Code(s): I10 - Essential (primary) hypertension
[2019-02-05 02:12] LABS: Mean Corpuscular Hgb Conc 32.5 g/dL (32-36)
[2019-02-05 02:22] LABS: Hematocrit (blood only) 36.9 % (42-52); Mean Corpuscular Volume 86.2 fL (80-100); RDW Coefficient of Variation 18.5 % (11.5-14.5); Red Blood Count 4.28 M/uL (4.7-6.1); White Blood Count 13.14 K/uL (4.8-10.8)
[2019-02-05 02:29] LABS: BUN Creatinine Ratio 19.2 (10-20); Calcium 8.9 mg/dl (8.5-10.1); Creatinine Clr Calc Pharmacy 17.5 ml/min; Est GFR (African American) 22.9; Est GFR (Non-African American) 19.8; Magnesium 2.6 mg/dl (1.8-2.4); Phosphorus 4.7 mg/dl (2.5-4.9); Potassium 3.8 mmol/L (3.5-5.1)
[2019-02-05] MEDS: LACTATED RINGER'S 1,000 ML IV SCH ×2 (02:36→12:15)
[2019-02-05] MEDS: AVODART~ORDER AWAITING ACTION SCH ×3 (03:17→16:33)
[2019-02-05 03:24] LABS: Platelet Count 153 K/uL (130-400)
[2019-02-05 03:26] LABS: Immature Granulocytes # (auto) 0.04 K/uL (0.00-0.02); Immature Granulocytes % (auto) 0.3 %; Lymphocytes # (auto) 0.59 K/uL (1.2-3.4); Lymphocytes % (auto) 4.7 %; Monocytes # (auto) 0.98 K/uL (0.11-0.59); Monocytes % (auto) 7.8 %; Neutrophils % (auto) 87.2 %; RBC Morphology Unremarkable
[2019-02-05 07:00] LABS: Appearance Urine Clear (Clear); Bacteria Urine Automated Negative (Negative); Bilirubin Urine Negative (Negative); Blood Urine 2+ (Negative); Color Urine Yellow; Epithelial Cell Urine Auto >30 /lpf (0-5); Glucose Urine UA Negative (Negative); Ketones Urine Negative (Negative); Leukocyte Esterase Urine Negative (Negative); Nitrite Urine Negative (Negative); Protein Urine 1+ (Negative); RBC Urine Automated >30 /hpf (0-4); Specific Gravity Urine 1.022 (1.000-1.030); Urobilinogen Urine Negative (Negative)
[2019-02-05 08:19] LABS: Sodium Random Urine 27 mmol/L; Urea Nitrogen, Urine Random 1067 mg/dl
[2019-02-05] MEDS ORDERED: FAMOTIDINE 10 MG/ML 2ML VIAL IV SCH (09:00)
[2019-02-05] MEDS: SUCRALFATE 1 GM/10 ML UDC PO SCH ×4 (09:01→20:53)
[2019-02-05] MEDS: ESCITALOPRAM OXALATE 10 MG TAB PO SCH (09:01)
[2019-02-05] MEDS: ATORVASTATIN 10 MG TAB PO SCH (09:01)
[2019-02-05] MEDS: FERROUS SULFATE 325 MG TAB PO SCH (09:01)
[2019-02-05] MEDS: allopurinoL 100 MG TAB PO SCH (09:01)
[2019-02-05] MEDS: PANTOprazole 40 MG TAB PO SCH ×2 (09:02→21:04)
[2019-02-05] MEDS: MAGNESIUM CHLORIDE 64MG DELAYED REL TAB PO SCH (09:04)
[2019-02-05] MEDS: INSULIN GLARGINE SOLOSTAR 100 UNITS/ML 3 ML PEN SC SCH ×2 (09:05→20:53)
[2019-02-05] MEDS: INSULIN ASPART 100 UNITS/ML 3 ML PEN SC SCH ×4 (09:07→20:54)
[2019-02-05] MEDS: FAMOTIDINE 20 MG in SYRINGE 3 ML IV SCH ×2 (09:09→20:53)
[2019-02-05] MEDS ORDERED: LACTATED RINGER'S 500 ML IV ONE (10:05)
[2019-02-05] MEDS: POTASSIUM CHLORIDE / WTR 10 MEQ/100 ML PLCT IV SCH ×2 (10:32→11:45)
--- NOTE | 2019-02-05 10:50 | Family Medicine Progress Note ---
Date of Service February 05, 2019 Assessment & Plan (1) Vomiting in adult: Patient is an 89 year old male presenting initially with recurrent nausea and vomiting shortly after po intake. Vomiting -?Gastroenteritis with nausea/vomiting/diarrhea, Recent EGD s/p biopsy. -Patient greatly improved, tolerating PO without nausea/vomiting. -Still dehydrated appearing by clinical exam, continue LR 100ml/hr until 2L completed. -Zofran PRN -Resolved at this time. Anemia secondary to GI Bleed -Concern for GI bleed as patient reported vomiting dark liquid and black BMs at admission. 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 -FOBT heme + -Hgb on admission 13.7, ?hemoconcentration due to dehydration, Hgb 9.8 after 2.5L of LR infused. -Continue to monitor Hgb, transfuse if <7 -GI consulted, appreciate recs. Acute Renal Failure -Cr improving from 3.07 on admission to 1.96 on 02/05/19. -LR 100mL/hr x 2 liters initiated by admitting team, 500mL LR bolus given this AM - Fluids D/C'd after completion. -James Catheter placement for strict I/O monitoring -UA showed +1 protein, +2 Blood, >30 RBC, >30 Epithelial cells. Nitrate and Leuk Est negative. -James placement for strict I/O monitoring -Hold Lasix and Losartan Afib with RVR -Telemetry noted tachycardia stack supervisor of 02/05/19 when patient was moving out of bed to have a BM. -EKG taken at time of event revealed Afib with RVR and RBBB on 02/05/19. -Patient's daughter had noted that patient has had similar events of tachycardia in the past, but had never been diagnosed. He was planned to have another 24 hour holter monitor study in March with Dr. Quarles. -Consult cardiology -Lopressor 5mg PRN Afib RVR rate>120 -Hold AC until GI concerns resolved. also has h/o PUD Anemia with heme positive stool -has h/o extensive PUD -has low baseline at 10. -check iron studies, retic count -monitor h/h closely. Dehydration -Resolving -IVF dc'd, patient tolerating PO intake -Monitor renal function and electrolytes Peptic Ulcer Disease -Continue Protonix, increase to 40mg po BID -Pepcid 20mg po BID -Carafate QID -Maalox PRN Diarrhea -Resolved Gout -Continue Allopurinol GERD -Continue Protonix and Carafate -Pepcid BID -Zofran PRN Depression -Continue Escitalopram BPH -Placing James catheter for I/O monitoring -Continue Dutasteride DM -Lantus 5u BID, ISS based on weight. -Goal blood sugar 100 - 140 Hyperlipidemia -Continue Atorvastatin Hypertension -Hold Lasix and Losartan in setting of HAYLEE on CKD -Continue to monitor PAD Hold Cilastazol for now FEN/GI - Clear Liquid Diet DVT PPx - SCD's Code -Full Dispo - Admit to medical floor with telemetry Present on Admission?: Yes (2) Acute renal failure: Present on Admission?: Yes (3) Dehydration: Present on Admission?: Yes (4) Peptic ulcer disease: Present on Admission?: Yes (5) Diarrhea: Present on Admission?: Yes (6) Gout: Present on Admission?: Yes (7) GERD (gastroesophageal reflux disease): Present on Admission?: Yes (8) Depression: Present on Admission?: Yes (9) BPH (benign prostatic hyperplasia): Present on Admission?: Yes (10) Diabetes mellitus: Present on Admission?: Yes (11) Hyperlipidemia: Present on Admission?: Yes (12) Hypertension: Present on Admission?: Yes (13) PAD (peripheral artery disease): Present on Admission?: Yes (14) Afib: (15) GI bleed: Supervising Physician Co-Signing Physician Notes Resident Physician Supervision Note: I independently interviewed and examined the patient and verified the brown history and physical, reviewed labs and image studies, discussed the case with the resident Dr. Crawford and agree with the findings and care plan. Subjective Patient seen and examined at the bedside. Patient noted that he was feeling well this morning and that he had no difficulties while eating breakfast. He denies any current nausea or vomiting since admission. He does note slight epigastric discomfort when swallowing foods. He notes a recent hospital stay and EGD on 01/29/19 for anemia and gastric occult positive. Review of Systems Constitutional: no fever, no chills, no fatigue and no weakness Eyes: no eye pain, no tunnel vision and no worsening vision Ear, Nose, Mouth, Throat: no ear pain and no dizziness Respiratory: no cough, no dyspnea, no hemoptysis and no pain on inspiration Cardiovascular: no chest pain, no chest pain at rest, no dyspnea, no dyspnea on exertion, no palpitations, no lightheadedness and no calf pain Gastrointestinal: + pain with swallowing; no abdominal pain, no nausea, no vomiting, no constipation and no diarrhea/loose stools Genitourinary: no dysuria and no hematuria Neurologic: no dizziness and no headache(s) Physical Exam Constitutional: WD/WN, vitals as above no acute distress and + not appropriately hydrated (appears slightly dehydrated by oral mucosa ) Eyes: normal visual de leon by confrontation, PERRL and EOM intact bilaterally ENMT: Ears: no external ear abnormality Nose: + dry nasal mucous membranes; no external nose abnormality and no epistaxis Neck: trachea midline, no thyromegaly Respiratory: normal respiratory effort, lungs clear to auscultation Cardiovascular: Rate/Rhythm: regular rate and regular rhythm Heart Sounds: normal S1, normal S2 and + murmur (2-3/6 at the R 2nd intercostal) Extremities: normal capillary refill; no calf tenderness Gastrointestinal (Abdomen): Inspection/Auscultation: abdomen normal to inspection and + hyperactive bowel sounds Percussion/Palpation: abdomen soft and + hernia (upper quadrants b/l, chronic); abdomen nontender, no guarding and abdomen not rigid Musculoskeletal: Head/Neck/Chest: normocephalic and head atraumatic Skin: no rashes, warm and dry normal turgor; no jaundice Neurologic: PERRL, EOMI, accommodation nl, no face palsy, no dysarthria Psychiatric: A+Ox3, euthymic affect Results & Data Vital Signs (Past 12 Hours) Vital Signs Temp Pulse Pulse Pulse Resp BP Pulse Ox 02/05/19 07:44 90 02/05/19 06:58 36.4 C L 78 20 150/78 H 98 02/05/19 04:00 36.4 C L 103 H 20 152/77 H 98 02/05/19 03:55 99 H 02/05/19 01:53 36.8 C 108 H 18 132/76 98 02/05/19 01:35 95 H 16 131/81 98 02/04/19 23:23 102 H 16 119/78 100 Laboratory Results Abnormal lab results 02/04/19 02/05/19 02/05/19 Range/Units 21:23 02:01 02:01 WBC 13.14 H (4.8-10.8) K/uL RBC 4.28 L (4.7-6.1) M/uL Hgb 12.0 L (14.0-18.0) g/dL Hct 36.9 L (42-52) % RDW Std Deviation 58.0 H (36.4-46.3) fL RDW Coeff of Kelly 18.5 H (11.5-14.5) % Immature Gran # (Auto) 0.04 H (0.00-0.02) K/uL Neut # (Auto) 11.00 H (1.4-6.5) K/uL Lymph # (Auto) 0.59 L (1.2-3.4) K/uL [place] # (Auto) 0.98 H (0.11-0.59) K/uL Sodium (136-145) mmol/L Chloride 109 H (98-107) mmol/L Carbon Dioxide 19 L (21-32) mmol/L Anion Gap 13.0 H (3-11) BUN 55 H 53 H (7-18) mg/dl Creatinine 3.07 H 2.74 H D (0.6-1.4) mg/dl BUN/Creatinine Ratio (10-20) Glucose 211 H 127 H (70-99) mg/dl POC Glucose (70-99) Calcium (8.5-10.1) mg/dl Magnesium 2.6 H (1.8-2.4) mg/dl AST 12 L (15-37) U/L Alkaline Phosphatase 172 H (45-117) U/L Total Protein 8.4 H (6.4-8.2) gm/dl Globulin 4.2 H (2.5-4.0) gm/dl Urine Protein (Negative) Urine Blood (Negative) Urine RBC (Auto) (0-4) /hpf U Hyaline Cast (Auto) (0-5) /lpf U Epithel Cells (Auto) (0-5) /lpf Stool Occult Bld Scrn (Negative) 02/05/19 02/05/19 02/05/19 Range/Units 02:16 06:15 10:00 WBC (4.8-10.8) K/uL RBC (4.7-6.1) M/uL Hgb (14.0-18.0) g/dL Hct (42-52) % RDW Std Deviation (36.4-46.3) fL RDW Coeff of Kelly (11.5-14.5) % Immature Gran # (Auto) (0.00-0.02) K/uL Neut # (Auto) (1.4-6.5) K/uL Lymph # (Auto) (1.2-3.4) K/uL [place] # (Auto) (0.11-0.59) K/uL Sodium (136-145) mmol/L Chloride (98-107) mmol/L Carbon Dioxide (21-32) mmol/L Anion Gap (3-11) BUN (7-18) mg/dl Creatinine (0.6-1.4) mg/dl BUN/Creatinine Ratio (10-20) Glucose (70-99) mg/dl POC Glucose 127 H (70-99) Calcium (8.5-10.1) mg/dl Magnesium (1.8-2.4) mg/dl AST (15-37) U/L Alkaline Phosphatase (45-117) U/L Total Protein (6.4-8.2) gm/dl Globulin (2.5-4.0) gm/dl Urine Protein 1+ H (Negative) Urine Blood 2+ H (Negative) Urine RBC (Auto) >30 H (0-4) /hpf U Hyaline Cast (Auto) 5-10 H (0-5) /lpf U Epithel Cells (Auto) >30 H (0-5) /lpf Stool Occult Bld Scrn Positive A (Negative) 02/05/19 02/05/19 02/05/19 Range/Units 11:45 16:05 16:05 WBC (4.8-10.8) K/uL RBC (4.7-6.1) M/uL Hgb 9.8 L (14.0-18.0) g/dL Hct 30.4 L (42-52) % RDW Std Deviation (36.4-46.3) fL RDW Coeff of Kelly (11.5-14.5) % Immature Gran # (Auto) (0.00-0.02) K/uL Neut # (Auto) (1.4-6.5) K/uL Lymph # (Auto) (1.2-3.4) K/uL [place] # (Auto) (0.11-0.59) K/uL Sodium 135 L (136-145) mmol/L Chloride (98-107) mmol/L Carbon Dioxide (21-32) mmol/L Anion Gap (3-11) BUN 58 H (7-18) mg/dl Creatinine 1.96 H D (0.6-1.4) mg/dl BUN/Creatinine Ratio 29.3 H (10-20) Glucose (70-99) mg/dl POC Glucose 104 H (70-99) Calcium 8.1 L (8.5-10.1) mg/dl Magnesium (1.8-2.4) mg/dl AST (15-37) U/L Alkaline Phosphatase (45-117) U/L Total Protein (6.4-8.2) gm/dl Globulin (2.5-4.0) gm/dl Urine Protein (Negative) Urine Blood (Negative) Urine RBC (Auto) (0-4) /hpf U Hyaline Cast (Auto) (0-5) /lpf U Epithel Cells (Auto) (0-5) /lpf Stool Occult Bld Scrn (Negative) 02/05/19 02/05/19 Range/Units 16:21 20:24 WBC (4.8-10.8) K/uL RBC (4.7-6.1) M/uL Hgb (14.0-18.0) g/dL Hct (42-52) % RDW Std Deviation (36.4-46.3) fL RDW Coeff of Kelly (11.5-14.5) % Immature Gran # (Auto) (0.00-0.02) K/uL Neut # (Auto) (1.4-6.5) K/uL Lymph # (Auto) (1.2-3.4) K/uL [place] # (Auto) (0.11-0.59) K/uL Sodium (136-145) mmol/L Chloride (98-107) mmol/L Carbon Dioxide (21-32) mmol/L Anion Gap (3-11) BUN (7-18) mg/dl Creatinine (0.6-1.4) mg/dl BUN/Creatinine Ratio (10-20) Glucose (70-99) mg/dl POC Glucose 108 H 116 H (70-99) Calcium (8.5-10.1) mg/dl Magnesium (1.8-2.4) mg/dl AST (15-37) U/L Alkaline Phosphatase (45-117) U/L Total Protein (6.4-8.2) gm/dl Globulin (2.5-4.0) gm/dl Urine Protein (Negative) Urine Blood (Negative) Urine RBC (Auto) (0-4) /hpf U Hyaline Cast (Auto) (0-5) /lpf U Epithel Cells (Auto) (0-5) /lpf Stool Occult Bld Scrn (Negative) Medications Administered Current Inpatient Medications Al Hydrox/Mg Hydrox/Simethicone (Maalox) 30 ml PO Q6H PRN PRN Reason: Dyspepsia Stop: 03/07/19 01:50 Allopurinol (Zyloprim) 100 mg PO DAILY SHAYY Stop: 03/07/19 08:59 Last Admin: 02/05/19 09:01 Dose: 100 mg Documented by: Atorvastatin Calcium (Lipitor) 10 mg PO DAILY SHAYY Stop: 03/07/19 08:59 Last Admin: 02/05/19 09:01 Dose: 10 mg Documented by: Dextrose (Dextrose 50%) 25 - 50 ml IV UD PRN; Protocol PRN Reason: Hypoglycemia Protocol Stop: 03/07/19 01:50 Escitalopram Oxalate (Lexapro Tab) 10 mg PO DAILY SHAYY Stop: 03/07/19 08:59 Last Admin: 02/05/19 09:01 Dose: 10 mg Documented by: Ferrous Sulfate (Feosol) 325 mg PO DAILY SHAYY Stop: 03/07/19 08:59 Last Admin: 02/05/19 09:01 Dose: 325 mg Documented by: Glucagon (Glucagen) 1 mg SQ UD PRN; Protocol PRN Reason: Hypoglycemia Protocol Stop: 03/07/19 01:50 Glucose (Glucose 40%) 15 - 30 gm PO UD PRN; Protocol PRN Reason: Hypoglycemia Protocol Stop: 03/07/19 01:50 Glucose (Dex4 Glucose) 4 - 8 tabs PO UD PRN; Protocol PRN Reason: Hypoglycemia Protocol Stop: 03/07/19 01:50 Lactated Ringer's (Lr) 1,000 mls @ 50 mls/hr IV .Q20H [facility] Stop: 02/06/19 17:50 Last Admin: 02/05/19 12:15 Dose: 100 mls/hr Documented by: Famotidine 20 mg/ Syringe 5 mls @ 2.5 mls/min IV BID [facility] Stop: 03/07/19 08:59 Last Admin: 02/05/19 20:53 Dose: 2.5 mls/min Documented by: Insulin Aspart (Novolog Flexpen) 0 units SC ACHS [facility] Stop: 03/07/19 07:29 Last Admin: 02/05/19 20:54 Dose: Not Given Documented by: Insulin Glargine (Lantus Solostar Pen) 5 units SC BID [facility] Stop: 03/07/19 08:59 Last Admin: 02/05/19 20:53 Dose: 5 units Documented by: Magnesium Chloride (Slow-Mag) 256 mg PO DAILY [facility] Stop: 03/07/19 08:59 Last Admin: 02/05/19 09:04 Dose: Not Given Documented by: Metoprolol Tartrate (Lopressor) 5 mg IV Q3H PRN PRN Reason: Afib RVR HR >120 Stop: 03/07/19 19:09 Miscellaneous (Order Awaiting Action) 1 ea N/A QS [facility] Stop: 03/07/19 02:59 Last Admin: 02/05/19 16:33 Dose: Not Given Documented by: Miscellaneous (Carbohydrates For Hypoglycemia) 15 - 30 gm PO UD PRN PRN Reason: Hypoglycemia Treatment Stop: 03/07/19 01:50 Ondansetron HCl (Zofran) 4 mg IV Q6H PRN PRN Reason: Nausea Stop: 03/07/19 01:50 Pantoprazole Sodium (Protonix) 40 mg PO BID [facility] Stop: 03/07/19 08:59 Last Admin: 02/05/19 21:04 Dose: 40 mg Documented by: Sucralfate (Carafate) 1 gm PO ACHS [facility] Stop: 03/07/19 07:29 Last Admin: 02/05/19 20:53 Dose: 1 gm Documented by: PG Care Time/CCT Total # of Minutes Spent Total Time Spent with Patient: Total time spent is greater than 50% in coordination of care (as documented) at patient's floor/unit and/or counseling patient: Resident Activity Tracking Resident Involvement: Resident Care Provided Care Provided: Adult Hospital Medicine (1) BPH (benign prostatic hyperplasia) Lower urinary tract symptom presence: symptoms absent Qualified Code(s): N40.0 - Benign prostatic hyperplasia without lower urinary tract symptoms (2) Diabetes mellitus Diabetes mellitus complication status: with other specified complication Diabetes mellitus extermination supervisor insulin use: unspecified fdc insulin use status Diabetes mellitus type: other specified (including ISIDRA) Qualified Code(s): E13.69 - Other specified diabetes mellitus with other specified complication (3) Gout Chronicity: unspecified Gout etiology: unspecified cause Gout site: unspecified site Qualified Code(s): M10.9 - Gout, unspecified (4) GI bleed GI bleed type/associated pathology: unspecified gastrointestinal hemorrhage type Qualified Code(s): K92.2 - Gastrointestinal hemorrhage, unspecified (5) Acute renal failure Acute renal failure type: unspecified Qualified Code(s): N17.9 - Acute kidney failure, unspecified (6) Depression Active/Remission status: in full remission Depression Type: major depressive disorder Major depression recurrence: unspecified whether recurrent Qualified Code(s): F32.5 - Major depressive disorder, single episode, in full remission (7) Diarrhea Diarrhea type: unspecified type Qualified Code(s): R19.7 - Diarrhea, unspecified (8) Hyperlipidemia Hyperlipidemia type: unspecified Qualified Code(s): E78.5 - Hyperlipidemia, unspecified (9) GERD (gastroesophageal reflux disease) Esophagitis presence: esophagitis presence not specified Qualified Code(s): K21.9 - Gastro-esophageal reflux disease without esophagitis (10) Hypertension Hypertension type: unspecified Qualified Code(s): I10 - Essential (primary) hypertension
[2019-02-05 16:28] LABS: Hematocrit (blood only) 30.4 % (42-52); Hemoglobin 9.8 g/dL (14.0-18.0)
[2019-02-05 16:49] LABS: BUN Creatinine Ratio 29.3 (10-20); Calcium 8.1 mg/dl (8.5-10.1); Creatinine Clr Calc Pharmacy 24.5 ml/min; Est GFR (African American) 34.4; Est GFR (Non-African American) 29.7; Potassium 4.1 mmol/L (3.5-5.1)
[2019-02-05] MEDS ORDERED: METOPROLOL TARTRATE 1 MG/ML VIAL IV PRN (19:10)
[2019-02-05 22:13] LABS: Hematocrit (blood only) 27.1 % (42-52); Hemoglobin 8.9 g/dL (14.0-18.0)
[2019-02-06 07:39] LABS: BUN Creatinine Ratio 24.9 (10-20); Creatinine Clr Calc Pharmacy 28.2 ml/min; Est GFR (African American) 38.9; Est GFR (Non-African American) 33.5; Potassium 3.7 mmol/L (3.5-5.1)
[2019-02-06 07:41] LABS: Basophils # (auto) 0.02 K/uL (0-0.2); Basophils % (auto) 0.3 %; Eosinophils # (auto) 0.09 K/uL (0-0.5); Eosinophils % (auto) 1.2 %; Hematocrit (blood only) 27.7 % (42-52); Hemoglobin 8.7 g/dL (14.0-18.0); Immature Granulocytes # (auto) 0.02 K/uL (0.00-0.02); Immature Granulocytes % (auto) 0.3 %; Lymphocytes # (auto) 0.93 K/uL (1.2-3.4); Lymphocytes % (auto) 12.1 %; Mean Corpuscular Hemoglobin 27.4 pg (25-34); Mean Corpuscular Hgb Conc 31.4 g/dL (32-36); Mean Corpuscular Volume 87.4 fL (80-100); Mean Platelet Volume 10.7 fL (7.4-10.4); Monocytes # (auto) 0.78 K/uL (0.11-0.59); Monocytes % (auto) 10.1 %; Neutrophils # (auto) 5.86 K/uL (1.4-6.5); Platelet Count 104 K/uL (130-400); RDW Standard Deviation 57.8 fL (36.4-46.3); Red Blood Count 3.17 M/uL (4.7-6.1)
[2019-02-06] MEDS: SUCRALFATE 1 GM/10 ML UDC PO SCH ×4 (09:18→20:12)
[2019-02-06] MEDS: INSULIN ASPART 100 UNITS/ML 3 ML PEN SC SCH ×4 (09:18→20:21)
[2019-02-06] MEDS: ESCITALOPRAM OXALATE 10 MG TAB PO SCH (09:19)
[2019-02-06] MEDS: FERROUS SULFATE 325 MG TAB PO SCH (09:19)
[2019-02-06] MEDS: INSULIN GLARGINE SOLOSTAR 100 UNITS/ML 3 ML PEN SC SCH ×2 (09:19→20:22)
[2019-02-06] MEDS: AVODART~ORDER AWAITING ACTION SCH ×2 (09:19)
[2019-02-06] MEDS: ATORVASTATIN 10 MG TAB PO SCH (09:20)
[2019-02-06] MEDS: MAGNESIUM CHLORIDE 64MG DELAYED REL TAB PO SCH (09:20)
[2019-02-06] MEDS: PANTOprazole 40 MG TAB PO SCH ×2 (09:20→20:14)
[2019-02-06] MEDS: allopurinoL 100 MG TAB PO SCH (09:21)
[2019-02-06] MEDS: FAMOTIDINE 20 MG in SYRINGE 3 ML IV SCH (09:32)
--- NOTE | 2019-02-06 11:18 | Cardiology Consultation ---
Date of Consultation February 06, 2019 Assessment & Plan (1) PAF (paroxysmal atrial fibrillation): He does have paroxysmal atrial fibrillation, the episodes are relatively brief but somewhat rapid. We have to be careful with AV sonja blocking medications due to AV block when in sinus rhythm. He should also be on anticoagulant but that may be problematic currently as noted below. For the moment I would leave things as they are and I can follow-up in the office. (2) Anticoagulant long-term use: He should be on an anticoagulant over the long run, that may be difficult at the moment with the GI bleed. I would recommend holding off for now as I think the risk of anticoagulation outweighs the benefit. Over the long run we may need to reconsider this. History of Present Illness Reason for Consultation: Atrial fibrillation Attending Physician: Maria Luisa Handley MD History of Present Illness This is an 88-year-old male who has a history of colon cancer, peripheral vascular disease as well as hypertension. He does not have a history of known coronary artery disease but presented to [facility] 06/23/2016 with 2 nights in a row having chest discomfort occurring while in bed, he describes a substernal chest heaviness and pressure lasting a total of about 3 hours prior to admission. Cardiac enzymes were negative and these symptoms were probably noncardiac. He was observed however on telemetry to have periods of second degree AV block on the evening of 06/23/2016. He did take atenolol 25 mg daily, as well as amlodipine. I discussed symptoms of bradycardia with him and he did describe momentary lightheadedness at times, this had been going on for some time and could represent transient AV block. He had never had presyncope or syncope and these were quite brief. He also described orthostatic symptoms, when he stood up he got a little bit lightheaded and has to stand still for a moment to get his bearings. He was weaned off of atenolol and amlodipine. He developed intermittent lightheadedness around July or August 2016, this was occurring on a daily basis, sometimes more than once daily although occasionally not every day. It sounded as though it was brief, a few seconds, and then resolved. It happened usually when he was upright, occasionally while sitting. He had a fall on 08/19/2016 which occurred when he was standing and then suddenly felt lightheaded and fell over backwards. He lacerated his head and required sutures emergency room. He was quite clear that he did not lose consciousness but was definitely transiently dizzy before he fell over. He denied having any loss of consciousness. He checks his blood pressures regularly and brought in a record, this showed that he was generally hypertensive with blood pressures in excess of 170 mm of mercury systolic at times, and no recording showing significant hypotension. Heart rates on his recordings were normal. A 48 hour Holter monitor was done on 09/14/2016, heart rate range was good from 54-125 bpm and there was no significant AV block. There were frequent premature atrial beats (10%) and some atrial tachycardias but no symptoms reported. He wore an event monitor for 30 days and this showed no significant arrhythmia. He has continued to have noncardiac type chest discomfort, he was in the emergency room around November 2017 with a prolonged episode and no abnormality was identified to suggest that it was cardiac. He was also admitted January 27, 2019 with chest discomfort with a negative work-up. He presents now with persistent vomiting but without chest discomfort. On telemetry he was noted to have paroxysmal atrial fibrillation. Allergies Allergy/AdvReac Type Severity Reaction Status Date / Time amoxicillin Allergy Severe HIVES; Verified 02/18/19 09:55 ANGIOEDEMA lisinopril Allergy Mild HIVES Verified 02/18/19 09:55 Penicillins Allergy Mild HIVES Verified 02/18/19 09:55 Home Medications Home Medications Medication Instructions Recorded Confirmed Type escitalopram 10 mg tablet 10 mg PO DAILY #30 tab 10/02/18 02/18/19 Rx allopurinol 100 mg tablet 100 mg PO DAILY #30 tab 10/07/18 02/18/19 Rx atorvastatin 10 mg tablet 10 mg PO DAILY #30 tab 10/07/18 02/18/19 Rx ferrous sulfate 325 mg (65 mg 325 mg PO DAILY #30 tab 01/05/19 02/18/19 Rx iron) tablet ergocalciferol (vitamin D2) 50,000 units PO MONTHLY 01/11/19 02/18/19 History furosemide 20 mg PO 2XWK 01/11/19 02/18/19 History losartan 50 mg PO DAILY 01/11/19 02/18/19 History magnesium chloride 256 mg PO DAILY #120 tab 01/15/19 02/18/19 Rx potassium chloride 20 meq PO BID #60 tab 01/15/19 02/18/19 Rx pantoprazole 40 mg PO QAM 30 Days #30 tab 01/30/19 02/18/19 Rx sucralfate 10 ml PO ACHS 30 Days #420 ml 01/30/19 02/18/19 Rx cilostazol 100 mg PO BID 02/04/19 02/18/19 History famotidine 20 mg PO BID 30 Days #60 tab 02/07/19 02/18/19 Rx dutasteride 0.5 mg capsule 0.5 mg PO DAILY #90 cap 02/18/19 02/18/19 Rx Patient History Medical History Hypokalemia (Chronic) Hypomagnesemia (Acute) Depression (Chronic) Colon cancer (Chronic) BPH (benign prostatic hyperplasia) (Chronic) Aneurysm of abdominal aorta (Chronic) Carotid artery stenosis (Acute) Diabetes mellitus (Chronic) Diabetic neuropathy (Acute) Hyperlipidemia (Chronic) Hypertension (Chronic) Non-small cell lung cancer (Acute) Lower & Upper PAD (peripheral artery disease) (Chronic) Second degree AV block (Acute) 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 gout (Resolved) Acid reflux disease with ulcer (Inactive) Anemia (Inactive) Lung nodule (Inactive) Pulmonary emphysema (Inactive) Vitamin D deficiency (Inactive) Surgical History H/O hernia repair History of AAA (abdominal aortic aneurysm) repair History of appendectomy History of cholecystectomy History of colon surgery History of lung surgery Family History Father COPD (chronic obstructive pulmonary disease) Cancer lung cancer Mother Cancer lung Brother Hypertension COPD (chronic obstructive pulmonary disease) Son Cancer liver Social History Preferred Language: Malay Communication Ability: Effective Fence Maker Required: No Beliefs That Will Affect Care: None marital status: / Current Living Situation: Alone Feels Safe at Home: Yes Smoking Status: Former smoker Cigarettes Per Day: 20 ; Hx Alcohol Use: No Hx Substance Use: No Results & Data Vital Signs (Past 12 Hours) Vital Signs Temp Pulse Pulse Resp BP BP Pulse Ox 02/06/19 11:02 36.8 C 84 16 130/73 99 02/06/19 07:25 36.6 C 83 16 158/75 H 98 02/06/19 04:20 36.9 C 82 15 157/56 H 97 02/05/19 23:55 78 Diagnostic Findings An electrocardiogram on February 05, 2019 at 10 AM shows atrial fibrillation with a rapid heart rate and 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 PG Care Time/CCT Total # of Minutes Spent Total Time Spent with Patient: Total time spent is greater than 50% in coordination of care (as documented) at patient's floor/unit and/or counseling patient:
[2019-02-06] MEDS: FINASTERIDE 5 MG TAB PO SCH (11:38)
--- NOTE | 2019-02-06 13:35 | Consultation Report ---
DATE OF CONSULTATION: 02/06/2019 GASTROENTEROLOGY CONSULTATION NOTE REASON FOR EVALUATION: Vomiting and history of gastric ulcers. HISTORY OF PRESENT ILLNESS: The patient is an 89-year-old male who was hospitalized a week ago with anemia and melena. The patient had been taking aspirin and Plavix and he underwent an EGD which showed grade C esophagitis and multiple small antral gastric ulcers, probably from his aspirin. He is currently taking Protonix twice a day, Carafate twice a day, and Pepcid twice a day, and is readmitted with vomiting and chest pain. He has not vomited any blood, his stools are black from taking oral iron, but he is not having any significant abdominal pain. He does have pain in the chest which will be evaluated by the quality control auditor. PAST MEDICAL HISTORY: Remarkable for significant health problems including stage III chronic kidney disease, second-degree AV block, gout, non-small cell lung cancer. He has had colon cancer, status post resection, diabetes, hypertension, hyperlipidemia. PAST SURGICAL HISTORY: He has had an appendectomy, cholecystectomy, lung surgery, aortic aneurysm repair, hernia repair, and partial colectomy. MEDICATIONS: Per list. ALLERGIES: AMOXICILLIN, LISINOPRIL, PENICILLIN. SOCIAL HISTORY: The patient is a , lives alone, former smoker, does not drink any alcohol. REVIEW OF SYSTEMS: Positive for the chest pain and some vomiting. PHYSICAL EXAMINATION: GENERAL: The patient appears in no acute distress. VITAL SIGNS: Normal. Blood pressure is 119/78, pulse 100. ABDOMEN: Showed multiple abdominal scars including right upper quadrant and midline scars. There are no masses, tenderness, or hepatosplenomegaly. IMPRESSION AND PLAN: The patient has a history of esophagitis and gastritis on EGD about a week ago. He is currently on 3 different medications including an H2 toñito, proton pump inhibitor, and Carafate. At this point, I do not believe that any change in medication or endoscopic evaluation is warranted. We can follow his blood count and if it diminishes significantly, then he may require a blood transfusion, but other than that we will continue with current measures. Dr. Marciano Price will be covering this weekend.
--- NOTE | 2019-02-06 16:44 | Family Medicine Progress Note ---
Date of Service February 06, 2019 Assessment & Plan (1) Vomiting in adult: Patient is an 89 year old male presenting initially with recurrent nausea and vomiting shortly after po intake. Vomiting -?Gastroenteritis with nausea/vomiting/diarrhea, Recent EGD s/p biopsy. -Patient greatly improved, tolerating PO without nausea/vomiting. -Still dehydrated appearing by clinical exam, continue LR 100ml/hr until 2L given - Completed. -Zofran PRN -Resolved at this time. Anemia with heme positive stool - possible acute blood loss but has low baseline. -Concern for GI bleed as patient reported vomiting dark liquid and black BMs at admission. 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 -H/O extensive PUD -Low baseline at hgb 10. -FOBT heme + -Hgb on admission 13.7, ?hemoconcentration due to dehydration, Hgb 9.8 after 2.5L of LR infused. -Check iron studies, retic count. -Monitor h/h closely, transfuse if HGB <7 -GI consulted, appreciate recs. -Continue H2 toñito, PPI, Carafate -No change in current medications or endoscopic evaluation warranted at this time. -Will follow blood count and if diminished significantly then blood transfusion. Acute Renal Failure -Cr improving from 3.07 on admission to 1.77 on 02/06/19. -LR 100mL/hr x 2 liters initiated by admitting team, 500mL LR bolus given this AM - Fluids D/C'd after completion. -James Catheter D/C'd, concern for trauma related hematuria, continue to monitor -UA showed +1 protein, +2 Blood, >30 RBC, >30 Epithelial cells. Nitrate and Leuk Est negative. -Hold Lasix and Losartan Afib with RVR -Telemetry noted tachycardia eye dropper assembler of 02/05/19 when patient was moving out of bed to have a BM. -EKG taken at time of event revealed Afib with RVR and RBBB on 02/05/19. -Patient's daughter had noted that patient has had similar events of tachycardia in the past, but had never been diagnosed. He was planned to have another 24 hour holter monitor study in March with Dr. Quarles. -Consult cardiology -Lopressor 5mg PRN Afib RVR rate>120 -Hold AC until GI concerns resolved. also has h/o PUD Dehydration -Resolving -IVF dc'd, patient tolerating PO intake -Monitor renal function and electrolytes Peptic Ulcer Disease -Continue Protonix, increase to 40mg po BID -Pepcid 20mg po BID -Carafate QID -Maalox PRN Diarrhea -Resolved Gout -Continue Allopurinol GERD -Continue Protonix and Carafate -Pepcid BID -Zofran PRN Depression -Continue Escitalopram BPH -Continue Dutasteride, finasteride while inpatient DM -Lantus 5u BID, ISS based on weight. -Goal blood sugar 100 - 140 Hyperlipidemia -Continue Atorvastatin Hypertension -Hold Lasix and Losartan in setting of HAYLEE on CKD -Continue to monitor PAD Hold Cilastazol for now FEN/GI - Full DVT PPx - SCD's Code -Full Dispo - Admit to medical floor with telemetry (2) Acute renal failure: (3) Dehydration: (4) Peptic ulcer disease: (5) Diarrhea: (6) Gout: (7) GERD (gastroesophageal reflux disease): (8) Depression: (9) BPH (benign prostatic hyperplasia): (10) Diabetes mellitus: (11) Hyperlipidemia: (12) Hypertension: (13) PAD (peripheral artery disease): (14) Afib: (15) GI bleed: Supervising Physician Co-Signing Physician Notes Resident Physician Supervision Note: I independently interviewed and examined the patient and verified the brown history and physical, reviewed labs and image studies, discussed the case with the resident Dr. Crawford and agree with the findings and care plan. Subjective Patient notes that he is doing well this morning. Still notes occasional epigastric/centralized chest pain with swallowing. Denies any dizziness, SOB, chest pressure. Review of Systems Constitutional: no fever, no chills, no fatigue and no weakness Eyes: no eye pain, no tunnel vision and no worsening vision Ear, Nose, Mouth, Throat: no ear pain and no dizziness Respiratory: no cough, no dyspnea, no hemoptysis and no pain on inspiration Cardiovascular: no chest pain, no chest pain at rest, no dyspnea, no dyspnea on exertion, no palpitations, no lightheadedness and no calf pain Gastrointestinal: + pain with swallowing; no abdominal pain, no nausea, no vomiting, no constipation and no diarrhea/loose stools Genitourinary: + hematuria; no dysuria Neurologic: no dizziness and no headache(s) Physical Exam Constitutional: WD/WN, vitals as above + well hydrated (appears slightly dehydrated by oral mucosa ); no acute distress Eyes: normal visual de leon by confrontation, + anicteric sclerae, PERRL and EOM intact bilaterally ENMT: Ears: no external ear abnormality Nose: no external nose abnormality, nasal mucous membranes not dry and no epistaxis Neck: trachea midline, no thyromegaly Respiratory: normal respiratory effort, lungs clear to auscultation Cardiovascular: Rate/Rhythm: regular rate and regular rhythm Heart Sounds: normal S1, normal S2 and + murmur (2-3/6 at the R 2nd intercostal) Extremities: normal capillary refill; no calf tenderness Gastrointestinal (Abdomen): Inspection/Auscultation: abdomen normal to inspection and normal bowel sounds Percussion/Palpation: abdomen soft and + hernia (upper quadrants b/l, chronic); abdomen nontender, no guarding and abdomen not rigid Musculoskeletal: Head/Neck/Chest: normocephalic and head atraumatic Skin: no rashes, warm and dry normal turgor; no jaundice Neurologic: PERRL, EOMI, accommodation nl, no face palsy, no dysarthria Psychiatric: A+Ox3, euthymic affect Results & Data Vital Signs (Past 12 Hours) Vital Signs Temp Pulse Pulse Resp BP BP Pulse Ox 02/06/19 16:15 78 02/06/19 15:07 36.4 C L 78 18 154/84 H 99 02/06/19 11:02 36.8 C 84 16 130/73 99 02/06/19 07:25 36.6 C 83 16 158/75 H 98 PG Care Time/CCT Total # of Minutes Spent Total Time Spent with Patient: Total time spent is greater than 50% in coordination of care (as documented) at patient's floor/unit and/or counseling patient: Resident Activity Tracking Resident Involvement: Resident Care Provided Care Provided: Adult Hospital Medicine (1) BPH (benign prostatic hyperplasia) Lower urinary tract symptom presence: symptoms absent Qualified Code(s): N40.0 - Benign prostatic hyperplasia without lower urinary tract symptoms (2) Diabetes mellitus Diabetes mellitus complication status: with other specified complication Diabetes mellitus truck terminal manager insulin use: unspecified truck terminal manager insulin use status Diabetes mellitus type: other specified (including ISIDRA) Qualified Code(s): E13.69 - Other specified diabetes mellitus with other specified complication (3) Gout Chronicity: unspecified Gout etiology: unspecified cause Gout site: unspecified site Qualified Code(s): M10.9 - Gout, unspecified (4) GI bleed GI bleed type/associated pathology: unspecified gastrointestinal hemorrhage type Qualified Code(s): K92.2 - Gastrointestinal hemorrhage, unspecified (5) Acute renal failure Acute renal failure type: unspecified Qualified Code(s): N17.9 - Acute kidney failure, unspecified (6) Depression Active/Remission status: in full remission Depression Type: major depressive disorder Major depression recurrence: unspecified whether recurrent Qualified Code(s): F32.5 - Major depressive disorder, single episode, in full remission (7) Diarrhea Diarrhea type: unspecified type Qualified Code(s): R19.7 - Diarrhea, unspecified (8) Hyperlipidemia Hyperlipidemia type: unspecified Qualified Code(s): E78.5 - Hyperlipidemia, unspecified (9) GERD (gastroesophageal reflux disease) Esophagitis presence: esophagitis presence not specified Qualified Code(s): K21.9 - Gastro-esophageal reflux disease without esophagitis (10) Hypertension Hypertension type: unspecified Qualified Code(s): I10 - Essential (primary) hypertension
[2019-02-06] MEDS: FAMOTIDINE 20 MG TAB PO SCH (20:13)
[2019-02-07 06:46] LABS: Mean Corpuscular Hemoglobin 27.5 pg (25-34); Mean Corpuscular Hgb Conc 32.1 g/dL (32-36); Mean Corpuscular Volume 85.6 fL (80-100); RDW Coefficient of Variation 17.6 % (11.5-14.5); RDW Standard Deviation 55.2 fL (36.4-46.3); Red Blood Count 3.27 M/uL (4.7-6.1); White Blood Count 8.48 K/uL (4.8-10.8)
[2019-02-07 07:16] LABS: BUN Creatinine Ratio 17.6 (10-20); Calcium 8.4 mg/dl (8.5-10.1); Creatinine Clr Calc Pharmacy 26.1 ml/min; Est GFR (African American) 35.5; Est GFR (Non-African American) 30.6; Potassium 3.8 mmol/L (3.5-5.1)
[2019-02-07 07:20] LABS: Ferritin 45.9 ng/ml (8-388)
[2019-02-07 07:34] LABS: Basophils # (auto) 0.03 K/uL (0-0.2); Basophils % (auto) 0.4 %; Eosinophils # (auto) 0.12 K/uL (0-0.5); Eosinophils % (auto) 1.4 %; Immature Granulocytes # (auto) 0.01 K/uL (0.00-0.02); Immature Granulocytes % (auto) 0.1 %; Lymphocytes % (auto) 8.3 %; Monocytes # (auto) 0.75 K/uL (0.11-0.59); Monocytes % (auto) 8.8 %; Neutrophils # (auto) 6.87 K/uL (1.4-6.5); Ovalocytes 1+; Reticulocyte % 1.5 % (0.5-2.0); Reticulocytes # 0.05 10^6/uL (0.02-0.10)
[2019-02-07] MEDS: SUCRALFATE 1 GM/10 ML UDC PO SCH ×2 (09:24→13:28)
[2019-02-07] MEDS: INSULIN ASPART 100 UNITS/ML 3 ML PEN SC SCH ×2 (10:14→13:27)
[2019-02-07] MEDS: INSULIN GLARGINE SOLOSTAR 100 UNITS/ML 3 ML PEN SC SCH (10:15)
[2019-02-07] MEDS: ESCITALOPRAM OXALATE 10 MG TAB PO SCH (10:16)
[2019-02-07] MEDS: FERROUS SULFATE 325 MG TAB PO SCH (10:16)
[2019-02-07] MEDS: ATORVASTATIN 10 MG TAB PO SCH (10:17)
[2019-02-07] MEDS: FAMOTIDINE 20 MG TAB PO SCH (10:17)
[2019-02-07] MEDS: FINASTERIDE 5 MG TAB PO SCH (10:18)
[2019-02-07] MEDS: PANTOprazole 40 MG TAB PO SCH (10:18)
[2019-02-07] MEDS: MAGNESIUM CHLORIDE 64MG DELAYED REL TAB PO SCH (10:19)
[2019-02-07] MEDS: allopurinoL 100 MG TAB PO SCH (10:19)
--- NOTE | 2019-02-07 11:16 | Gastroenterology Progress Note ---
Date of Service February 07, 2019 Assessment & Plan (1) GI bleed: Monitor Hb periodically as out patient to ensure they return to normal. At present no evidence of active bleeding. Hb stable. Present on Admission?: Yes (2) GERD (gastroesophageal reflux disease): Discussed that complete healing of esophagitis might take about 8-12 weeks. Stay on current therapy. Possibly can be discharged with close out pa tient follow up. Will sign off, call if you need us. Subjective Doing much better. Tolerated food this AM. No nausea or vomiting. Had good appetite. Hb stable. Physical Exam Gastrointestinal (Abdomen): Inspection/Auscultation: abdomen normal to inspection and + scaphoid; abdomen not distended Percussion/Palpation: abdomen soft; abdomen nontender Results & Data Vital Signs (Past 12 Hours) Vital Signs Temp Pulse Resp BP Pulse Ox 02/07/19 02:53 36.5 C 84 17 169/78 H 99 (1) GI bleed GI bleed type/associated pathology: unspecified gastrointestinal hemorrhage type Qualified Code(s): K92.2 - Gastrointestinal hemorrhage, unspecified (2) GERD (gastroesophageal reflux disease) Esophagitis presence: esophagitis presence not specified Qualified Code(s): K21.9 - Gastro-esophageal reflux disease without esophagitis
--- NOTE | 2019-02-07 12:09 | Discharge Summary ---
Date of Service February 07, 2019 Admission HPI Per Admitting Provider Tasneem Mckeon is a pleasant 89yo C male with multiple medical problems, notably PAD/HTN/GERD/CKD-III/HLP/DM. He was presented to the ER on 01/27/19 with chest discomfort. Also found with anemia and gastric occult positive. He had an EGD performed on 01/29/[address] Carter which revealed LA Grade C reflux esophagitis, many non-bleeding gastric ulcers with pigmented material and a single duodenal polyp which was resected (Pathology results show tubulovillous adenoma). He was discharged home in stable condition on 01/30/19 - started on Protonix 40mg po daily and Carafate QID. Patient presents today with recurrent nausea and vomiting. He states that he is unable to tolerate po intake. He has had multiple episodes of vomiting shortly after eating. Vomitus is typically food material and occasionally dark black in color. He denies abdominal pain, fullness or distention. He also has had multiple episodes of loose/black BMs, appx 2x daily. He has chronic diarrhea and does not feel that this is much different than prior. He denies CP/palpitaitons/dizziness/fatigue, denies syncope/lightheadedness. Denies pain or difficulty swallowing. He reports adequate UOP, dark in color. No blood. He has been taking his Protonix and Carafate as prescribed without difficulty. He has had some hoarseness since the EGD ER Course: CHRISTINA Elliott Admission Exam Per Admitting Provider General: patient resting comfortably, NAD, non-toxic in appearance, AA&O x 4 Skin: warm, dry, intact, no rashes or lesions HEENT: NC/AT, PERRL, EOMI, anicteric sclera, conjunctiva without injection, external ear normal to inspection and nontender, nares patent, moist mucus membranes, dentures in place, no oropharyngeal lesions, neck supple, trachea midline, no LAD, no thyromegaly, no JVD Heart: +S1/S2, regular, 94 bpm, 3/6 JOHN at 2nd right ICS across precordium Lungs: equal air entry bilaterally, no rales/rhonchi/wheezes Abd: +BS, soft, NT/ND, no masses/organomegaly/ascites, no epigastric tenderness Ext: warm, 2+ pulses in UE/LE bilaterally, no clubbing/cyanosis or edema Neuro: nonfocal, patient AA&O x 4, speech intact, no facial droop, moving all extremities on command with equal strength 5/5 Principal Diagnosis Vomiting Discharge Exam Constitutional WD/WN, vitals as above + well hydrated; no acute distress Eyes normal visual de leon by confrontation, + anicteric sclerae, PERRL and EOM intact bilaterally ENMT Ears: no external ear abnormality Nose: no external nose abnormality, nasal mucous membranes not dry and no epistaxis Neck trachea midline, no thyromegaly Respiratory normal respiratory effort, lungs clear to auscultation Cardiovascular Rate/Rhythm: regular rate and regular rhythm Heart Sounds: normal S1, normal S2 and + murmur (2-3/6 at the R 2nd intercostal) Extremities: normal capillary refill; no calf tenderness Gastrointestinal (Abdomen) Inspection/Auscultation: abdomen normal to inspection and normal bowel sounds Percussion/Palpation: abdomen soft and + hernia (upper quadrants b/l, chronic); abdomen nontender, no guarding and abdomen not rigid Musculoskeletal Head/Neck/Chest: normocephalic and head atraumatic Skin no rashes, warm and dry normal turgor; no jaundice Neurologic PERRL, EOMI, accommodation nl, no face palsy, no dysarthria Psychiatric A+Ox3, euthymic affect Discharge Data Allergies Allergy/AdvReac Type Severity Reaction Status Date / Time amoxicillin Allergy Severe HIVES; Verified 02/08/19 23:59 ANGIOEDEMA lisinopril Allergy Mild HIVES Verified 02/08/19 23:59 Penicillins Allergy Mild HIVES Verified 02/08/19 23:59 Consultations 02/05/19 00:14 ED Decision to Admit Stat 02/05/19 16:20 Consult Cardiology Routine Consult Gastroenterology Routine Hospital Course (1) Vomiting in adult: Patient is an 89 year old male presenting initially with recurrent nausea and vomiting shortly after po intake. Vomiting -?Gastroenteritis with nausea/vomiting/diarrhea, Recent EGD s/p biopsy. -Patient greatly improved, tolerating PO without nausea/vomiting. -Zofran PRN -Resolved at this time. Anemia with heme positive stool - possible acute blood loss but has low baseline. -Concern for GI bleed as patient reported vomiting dark liquid and black BMs at admission. 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 -H/O extensive PUD -Low baseline at hgb 10. -FOBT heme + -Hgb on admission 13.7, ?hemoconcentration due to dehydration, Hgb 9.8 after 2.5L of LR infused. -Iron 14, TIBC 222, Transferrin 183, Ferritin, 45.9 -Monitored h/h closely, transfuse if HGB <7 -GI consulted, appreciate recs. -Continue H2 toñito, PPI, Carafate, transfusion if needed. -No change in current medications or endoscopic evaluation warranted at this time. -Hgb 9 upon discharge, did not require any transfusions during stay. New onset Afib with RVR -Telemetry noted tachycardia lifeguard of 02/05/19 when patient was moving out of bed to have a BM. -EKG taken at time of event revealed Afib with RVR and RBBB on 02/05/19. -Patient's daughter had noted that patient has had similar events of tachycardia in the past, but had never been diagnosed. He was planned to have another 24 hour holter monitor study in March with Dr. Quarles. -Consulted cardiology -Lopressor 5mg PRN Afib RVR rate>120 -Discussed case with Dr. 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 To further address as outpatient -F/U outpatient in 2-4 weeks for reassessment and will consider starting anti coagulation at that point. Acute Renal Failure -Cr improving from 3.07 on admission to 1.91 on 02/07/19. -James Catheter D/C'd, concern for trauma related hematuria - Hematuria resolved. -UA showed +1 protein, +2 Blood, >30 RBC, >30 Epithelial cells. Nitrate and Leuk Est negative. -Held Lasix and Losartan -Encouraged patient to have greater PO intake of fluids. Dehydration -Resolved Peptic Ulcer Disease -Protonix increased to 40mg PO BID, continue in outpatient. -Pepcid 20mg po BID -Carafate QID -Maalox PRN Diarrhea -Resolved Gout -Continued Allopurinol GERD -Continued Protonix and Carafate -Pepcid BID -Zofran PRN Depression -Continued Escitalopram BPH -Continue Dutasteride upon discharge. -Finasteride while inpatient DM -Lantus 5u BID, ISS based on weight. -Goal blood sugar was 100 - 140 Hyperlipidemia -Continued Atorvastatin Hypertension -Held Lasix and Losartan in setting of HAYLEE on CKD -Continue upon discharge. PAD Held Cilastazol while inpatient, continue upon d/c FEN/GI - Full DVT PPx with SCD's while inpatient Code -Full Dispo - To Home (2) Acute renal failure: (3) Dehydration: (4) Peptic ulcer disease: (5) Diarrhea: (6) Gout: (7) GERD (gastroesophageal reflux disease): (8) Depression: (9) BPH (benign prostatic hyperplasia): (10) Diabetes mellitus: (11) Hyperlipidemia: (12) Hypertension: (13) PAD (peripheral artery disease): (14) Afib: (15) GI bleed: Total Time Total Time Spent Total Time Spent (In Minutes): see attending attestation Discharge Plan Discharge Items Patient Disposition: Home - Self-Care Reason For Visit: VOMITING Discharge Diagnosis: Intractable Vomiting, GI Bleed Condition on Discharge: Good Activity: Resume your previous activity Non-emergency contact: Primary Care Provider, Wheel Setter and Senior Environmental Consultant Call non-emergency contact if: you have any medication questions and your symptoms worsen Follow-up/Referrals: Dallas Jacobo MD [Primary Care Provider] - Diet: Regular Addtl Attending Provider Instructions: blas Rosa were admitted to [facility] on 02/05/19 for intractable vomiting, diarrhea with dark stools, and dehydration. Your nausea improved greatly with the use of anti-nausea medications and you were able to tolerate a liquid diet. You were also rehydrated with IV fluids. Blood was noted to be present on your stool and you your hemoglobin levels were monitored for the remainder of your stay to ensure that they didn't continue to get lower. You were seen by Gastroenterology who recommended that you continue your current Protonix, Pepcid, and Carafate and that no EGD was necessary at this time. Also, while monitoring your heart we noticed times of rapid heart beats associated with Atrial Fibrillation. Upon discussion with you and your daughter these events had been occurring for quite some time now and you were to have a Holter Monitor study with Dr. Quarles for these concerns. After speaking with Dr. Quarles, he feels that while you should be on some type of anticoagulation, it may not be appropriate at this time so close to your questionable GI bleeding. He would like to see you in the next 2-4 weeks for reassessment and determination of whether or not to initiate a blood thinner then. Upon tolerating a regular diet today and improvement of your dehydration and anemia, you are being discharged to home. Please follow the below instructions: -In the next 2-4 weeks, please follow up with Dr. Quarles your v belt skiver. -In the next 1 week please follow up with your PCP. -Continue your medications as prescribed. -You have one new prescription for Famotidine 20mg by mouth two (2) times a day. You can pick this up at your noted pharmacy. Pending Studies at Discharge: No Stand-Alone Forms: My [facility] [employer], Smoking Cessation Medications and DC Order Prescriptions: New famotidine 20 mg Tablet 20 mg PO BID 30 Days Qty: 60 RF: 2 Continued ferrous sulfate 325 mg (65 mg iron) tablet 325 mg PO DAILY Qty: 30 RF: 5 escitalopram oxalate 10 mg tablet 10 mg PO DAILY Qty: 30 RF: 2 allopurinol 100 mg tablet 100 mg PO DAILY Qty: 30 RF: 0 atorvastatin 10 mg tablet 10 mg PO DAILY Qty: 30 RF: 0 dutasteride 0.5 mg capsule 0.5 mg PO DAILY Qty: 90 RF: 0 losartan 50 mg tablet 50 mg PO DAILY RF: 0 furosemide 20 mg tablet 20 mg PO 2XWK RF: 0 ergocalciferol (vitamin D2) 50,000 unit capsule 50,000 units PO MONTHLY RF: 0 potassium chloride 20 mEq tablet extended release 20 meq PO BID Qty: 60 RF: 0 magnesium chloride 64 mg tablet,delayed release (DR/EC) 256 mg PO DAILY Qty: 120 RF: 0 cilostazol 100 mg tablet 100 mg PO BID RF: 0 sucralfate 100 mg/mL Suspension 10 ml PO ACHS 30 Days Qty: 420 RF: 0 ondansetron 4 mg film 4 mg PO Q6H PRN (Reason: nausea and vomiting) 14 Days Qty: 30 RF: 0 pantoprazole 40 mg tablet,delayed release (DR/EC) 40 mg PO QAM 30 Days Qty: 30 RF: 0 Discharge Orders: Discharge Order (Routine); Ordered 02/07/19 Ordered By: Tyrone Crawford Admission Data Admit Date/Time: 02/05/19 01:18 Attending Provider: Maria Luisa Handley Admit Provider: Regla Ocampo Primary Care Provider: Dallas Jacobo Other Providers: Regla Ocampo ; Remy Quarles ; King Carter Other Interventions: Discharge Summary Assessment (RN) Last Done: 02/07/19 13:50 DC Date/Time DO NOT enter until pt leaves facility: 02/07/19 17:20 Supervising Physician Co-Signing Physician Notes Resident Physician Supervision Note: I independently interviewed and examined the patient and verified the brown history and physical, reviewed labs and image studies, discussed the case with the resident Dr. Crawford and agree with the findings and care plan. Resident Activity Tracking Resident Involvement: Resident Care Provided Care Provided: Adult Hospital Medicine
== END 2019-02-07 17:20 | disposition home or self-care (01) | DRG 683 ==
LOC: ED 20:03 → SUATTDRO 02-05 01:18 → 2W 02-05 01:18

== ENCOUNTER 2019-02-08 23:37 | Inpatient (IN) ==
[2019-02-09 00:39] LABS: Mean Corpuscular Hgb Conc 31.2 g/dL (32-36)
[2019-02-09 00:56] LABS: INR 1.1 (0.9-1.1); Partial Thromboplastin Ratio 1.1; Partial Thromboplastin Time 28.7 Seconds (21.0-31.0); Prothrombin Time 10.8 Seconds (9.0-12.0)
[2019-02-09 00:58] LABS: Alanine Aminotransferase 14 U/L (12-78); Albumin Level 2.9 gm/dl (3.4-5.0); Aspartate Aminotransferase 9 U/L (15-37); BUN Creatinine Ratio 12.8 (10-20); Blood Urea Nitrogen 24 mg/dl (7-18); Calcium 8.6 mg/dl (8.5-10.1); Carbon Dioxide 23 mmol/L (21-32); Chloride 108 mmol/L (98-107); Creatinine Clr Calc Pharmacy 26.8 ml/min; Est GFR (African American) 37.1; Glucose 116 mg/dl (70-99); Lipase 450 U/L (73-393); Potassium 3.7 mmol/L (3.5-5.1); Sodium 139 mmol/L (136-145)
[2019-02-09 01:03] LABS: Albumin Globulin Ratio 0.8 (0.9-2); Alkaline Phosphatase 127 U/L (45-117); Bilirubin,Total 0.5 mg/dl (0.2-1); Globulin 3.6 gm/dl (2.5-4.0); Total Protein 6.5 gm/dl (6.4-8.2); Troponin I < 0.015 ng/ml (0-0.045)
[2019-02-09 01:09] LABS: Appearance Urine Turbid (Clear); Bacteria Urine Automated 4+ (Negative); Bilirubin Urine Negative (Negative); Blood Urine 3+ (Negative); Color Urine Yellow; Epithelial Cell Urine Auto >30 /lpf (0-5); Glucose Urine UA Negative (Negative); Ketones Urine Negative (Negative); Leukocyte Esterase Urine 3+ (Negative); Nitrite Urine Positive (Negative); Protein Urine 2+ (Negative); Specific Gravity Urine 1.017 (1.000-1.030); Urobilinogen Urine Negative (Negative); WBC Urine Automated >30 /hpf (0-5); pH Urine 5.5 (4.5-7.5)
[2019-02-09 01:10] LABS: Hematocrit (blood only) 31.4 % (42-52); Hemoglobin 9.8 g/dL (14.0-18.0); Mean Corpuscular Hemoglobin 27.4 pg (25-34); Mean Corpuscular Volume 87.7 fL (80-100); RDW Coefficient of Variation 17.8 % (11.5-14.5); RDW Standard Deviation 57.7 fL (36.4-46.3); Red Blood Count 3.58 M/uL (4.7-6.1); White Blood Count 10.14 K/uL (4.8-10.8)
[2019-02-09 01:32] LABS: Platelet Count 157 K/uL (130-400)
[2019-02-09 01:33] LABS: Basophils # (auto) 0.02 K/uL (0-0.2); Basophils % (auto) 0.2 %; Eosinophils # (auto) 0.02 K/uL (0-0.5); Eosinophils % (auto) 0.2 %; Immature Granulocytes # (auto) 0.02 K/uL (0.00-0.02); Immature Granulocytes % (auto) 0.2 %; Lymphocytes # (auto) 0.42 K/uL (1.2-3.4); Lymphocytes % (auto) 4.1 %; Monocytes # (auto) 0.76 K/uL (0.11-0.59); Monocytes % (auto) 7.5 %; Neutrophils % (auto) 87.8 %; Ovalocytes 1+; Platelet Estimate Normal (Normal)
[2019-02-09] MEDS ORDERED: cefTRIAXone SODIUM 1,000 MG/50 ML BAG IV STA (01:33)
--- NOTE | 2019-02-09 01:52 | Emergency Department Note ---
Entered by Samson Holland acting as a scribe for Zhang Cardoso DO History of Present Illness General Chief complaint: Illness Stated complaint: JUST DON'T FEEL RIGHT - RELEASED 02/07 Source: patient and family Limitations: no limitations History of Present Illness Onset (ago): hour(s) (evening) Location: head Pain Consistency: + constant Quality: + constant Associated symptoms: + denies other symptoms (falls) The patient is a 89 year old male who presents to the Emergency Room with complaints of constant confusion starting earlier today. The patient's family member states the patient was discharged from the hospital yesterday. The family member states the patient was put on Pepcid. The family member states today that the patient has been really confused and stated that he ate food today but the family member notes there were no dishes in the sink. The family member states the patient stated that he did not have any medications to take earlier today. The patient states his abdomen has been hurting him since earlier in the day. The family member states the patient was previously admitted for a peptic ulcer and then was admitted at a later time for an unexplained dehydration that resulted in diarrhea and vomiting. The family member states that the patient lives alone. The family member denies the patient having any falls. The patient notes he has been having black stools for a while and the family member states he thinks it is from iron. Home Medications Home Medications Medication Instructions Recorded Confirmed Type escitalopram 10 mg tablet 10 mg PO DAILY #30 tab 10/02/18 02/09/19 Rx allopurinol 100 mg tablet 100 mg PO DAILY #30 tab 10/07/18 02/09/19 Rx atorvastatin 10 mg tablet 10 mg PO DAILY #30 tab 10/07/18 02/09/19 Rx dutasteride 0.5 mg capsule 0.5 mg PO DAILY #90 cap 10/07/18 02/09/19 Rx ferrous sulfate 325 mg (65 mg 325 mg PO DAILY #30 tab 01/05/19 02/09/19 Rx iron) tablet ergocalciferol (vitamin D2) 50,000 units PO MONTHLY 01/11/19 02/09/19 History furosemide 20 mg PO 2XWK 01/11/19 02/09/19 History losartan 50 mg PO DAILY 01/11/19 02/09/19 History magnesium chloride 256 mg PO DAILY #120 tab 01/15/19 02/09/19 Rx potassium chloride 20 meq PO BID #60 tab 01/15/19 02/09/19 Rx ondansetron 4 mg PO Q6H PRN 14 Days #30 ea 01/30/19 02/09/19 Rx pantoprazole 40 mg PO QAM 30 Days #30 tab 01/30/19 02/09/19 Rx sucralfate 10 ml PO ACHS 30 Days #420 ml 01/30/19 02/09/19 Rx cilostazol 100 mg PO BID 02/04/19 02/09/19 History famotidine 20 mg PO BID 30 Days #60 tab 02/07/19 02/09/19 Rx Allergies Allergy/AdvReac Type Severity Reaction Status Date / Time amoxicillin Allergy Severe HIVES; Verified 02/08/19 23:59 ANGIOEDEMA lisinopril Allergy Mild HIVES Verified 02/08/19 23:59 Penicillins Allergy Mild HIVES Verified 02/08/19 23:59 Past Med/Surg History Medical History Hypokalemia (Chronic) Hypomagnesemia (Acute) Depression (Chronic) Colon cancer (Chronic) BPH (benign prostatic hyperplasia) (Chronic) Aneurysm of abdominal aorta (Chronic) Carotid artery stenosis (Acute) Diabetes mellitus (Chronic) Diabetic neuropathy (Acute) Hyperlipidemia (Chronic) Hypertension (Chronic) Non-small cell lung cancer (Acute) Lower & Upper PAD (peripheral artery disease) (Chronic) Second degree AV block (Acute) 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 gout (Resolved) Acid reflux disease with ulcer (Inactive) Anemia (Inactive) Lung nodule (Inactive) Pulmonary emphysema (Inactive) Vitamin D deficiency (Inactive) Surgical History H/O hernia repair History of AAA (abdominal aortic aneurysm) repair History of appendectomy History of cholecystectomy History of colon surgery History of lung surgery Family History Father COPD (chronic obstructive pulmonary disease) Cancer lung cancer Mother Cancer lung Brother Hypertension COPD (chronic obstructive pulmonary disease) Son Cancer liver Social History Preferred Language: Colombian Communication Ability: Effective Marketing Operations Intern Required: No Beliefs That Will Affect Care: None marital status: / Current Living Situation: Alone Feels Safe at Home: Yes Smoking Status: Former smoker Cigarettes Per Day: 20 ; Hx Alcohol Use: No Hx Substance Use: No Review of Systems See HPI for pertinent positives & negatives. and A total of 10 systems reviewed and were otherwise negative Physical Exam Vital Signs Vital Signs - 24 hr 02/08/19 23:47 02/09/19 00:30 02/09/19 00:35 Temperature 36.6 C Temperature Source Oral Sepsis Recent Fever Within 48 Hours No Sepsis New/Unexplained Change in Mental Status No Sepsis Action Taken by Nursing No Action Required Pulse Rate 53 L 84 85 Pulse Rate [Bilateral Apical] Pulse Rate from SpO2 Sensor 81 Respiratory Rate 18 15 20 Respiratory Effort / Characteristics Respiratory Depth Blood Pressure 142/67 H 150/97 H Blood Pressure [Left Arm] Blood Pressure Mean 92 114 Blood Pressure Mean [Left Arm] Pulse Oximetry 99 100 99 Oxygen Delivery Method Room Air Room Air 02/09/19 00:38 Temperature Temperature Source Sepsis Recent Fever Within 48 Hours Sepsis New/Unexplained Change in Mental Status Sepsis Action Taken by Nursing Pulse Rate Pulse Rate [Bilateral Apical] 82 Pulse Rate from SpO2 Sensor Respiratory Rate 20 Respiratory Effort / Characteristics Non-Labored Respiratory Depth Normal Blood Pressure Blood Pressure [Left Arm] 150/97 H Blood Pressure Mean Blood Pressure Mean [Left Arm] 114 Pulse Oximetry 96 Oxygen Delivery Method Room Air GENERAL: Patient is awake and alert. He follows commands appropriately. He does not appear to be in pain. EYES: The conjunctivae are pale. The pupils are round and reactive. EARS, NOSE, MOUTH AND THROAT: The nose is without any evidence of any deformity. Mucous membranes are moist tongue is midline NECK: The neck is nontender and supple. RESPIRATORY: Diminished breath sounds are noted at the right base. There is no tachypnea or conversational dyspnea. CARDIOVASCULAR: Regular rate and rhythm was noted to auscultation. Systolic murmur suggested. GASTROINTESTINAL: Abdomen is soft and nondistended. There is tenderness to pal pation but no guarding or rigidity. MUSCULOSKELETAL/EXTREMITIES: There is no evidence of gross deformity full range of motion is noted in the hips and shoulders SKIN: Skin was cool and dry. There is pedal edema bilaterally. Skin was pale. NEUROLOGIC: Patient is awake and oriented to person place and situation. He appears to be confused on time. He recognizes his family members. Course 0004: The patient was evaluated in room B10, and a complete history and physical examination were performed. 0222: I [facility] the patient's [facility] will [facility] the patient for further management Administered Medications Allopurinol (Zyloprim) 100 mg PO DAILY SHAYY Stop: 03/11/19 08:59 Last Admin: 02/09/19 08:27 Dose: 100 mg Documented by: [id number] Atorvastatin Calcium (Lipitor) 10 mg PO DAILY SHAYY Stop: 03/11/19 08:59 Last Admin: 02/09/19 08:24 Dose: 10 mg Documented by: [id number] Cilostazol (Pletal) 100 mg PO BID SHAYY Stop: 03/11/19 08:59 Last Admin: 02/09/19 08:25 Dose: 100 mg Documented by: [id number] Escitalopram Oxalate (Lexapro Tab) 10 mg PO DAILY SHAYY Stop: 03/11/19 08:59 Last Admin: 02/09/19 08:24 Dose: 10 mg Documented by: [id number] Famotidine (Pepcid) 20 mg PO BID SHAYY Stop: 03/11/19 08:59 Last Admin: 02/09/19 08:25 Dose: 20 mg Documented by: [id number] Ferrous Sulfate (Feosol) 325 mg PO DAILY SHAYY Stop: 03/11/19 08:59 Last Admin: 02/09/19 08:22 Dose: 325 mg Documented by: [id number] Furosemide (Lasix) 20 mg PO MoTh@0900 SHAYY Stop: 03/11/19 08:59 Last Admin: 02/09/19 08:24 Dose: 20 mg Documented by: [id number] Insulin Aspart (Novolog Flexpen) 0 units SC ACHS SHAYY Stop: 03/11/19 07:29 Last Admin: 02/09/19 18:02 Dose: Not Given Documented by: [id number] Cosigned by: [id number] Admin: 02/09/19 12:34 Dose: Not Given Documented by: [id number] Cosigned by: [id number] Admin: 02/09/19 08:38 Dose: 1 units Documented by: [id number] Cosigned by: [id number] Losartan Potassium (Cozaar) 50 mg PO DAILY SHAYY Stop: 03/11/19 08:59 Last Admin: 02/09/19 08:21 Dose: 50 mg Documented by: [id number] Magnesium Chloride (Slow-Mag) 256 mg PO DAILY SHAYY Stop: 03/11/19 08:59 Last Admin: 02/09/19 08:26 Dose: 256 mg Documented by: [id number] Miscellaneous (Order Awaiting Action) 1 ea N/A QS SHAYY Stop: 03/11/19 04:44 Last Admin: 02/09/19 16:08 Dose: Not Given Documented by: [id number] Admin: 02/09/19 12:12 Dose: Not Given Documented by: [id number] Admin: 02/09/19 06:31 Dose: Not Given Documented by: [id number] Pantoprazole Sodium (Protonix) 40 mg PO QAM SHAYY Stop: 03/11/19 08:59 Last Admin: 02/09/19 08:25 Dose: 40 mg Documented by: [id number] Potassium Chloride (Klor-Con M20) 20 meq PO BID17 SHAYY Stop: 03/11/19 08:59 Last Admin: 02/09/19 17:10 Dose: 20 meq Documented by: [id number] Admin: 02/09/19 08:22 Dose: 20 meq Documented by: [id number] Sucralfate (Carafate) 1 gm PO ACHS SHAYY Stop: 03/11/19 07:29 Last Admin: 02/09/19 16:09 Dose: 1 gm Documented by: [id number] Admin: 02/09/19 12:12 Dose: 1 gm Documented by: [id number] Admin: 02/09/19 08:21 Dose: 1 gm Documented by: [id number] Discontinued Medications Ceftriaxone Sodium (Rocephin) 1,000 mg in 50 mls @ 100 mls/hr IV NOW STA Stop: 02/09/19 02:02 Last Infusion: 02/09/19 02:34 Dose: 0 mls/hr Documented by: [id number] Admin: 02/09/19 01:46 Dose: 100 mls/hr Documented by: [id number] Insulin Glargine (Lantus Solostar Pen) 5 units SC BID SHAYY Stop: 03/11/19 08:59 Last Admin: 02/09/19 08:22 Dose: 5 units Documented by: [id number] Cosigned by: [id number] Medical Decision Making Differential Diagnosis Differential Diagnosis includes but is not limited to dehydration, stroke, anemia, hypoglycemia, hyponatremia, hypernatremia, urinary tract infection, pneumonia, bronchitis, sepsis, gastroenteritis, additional abdominal pathology, metabolic abnormalities and infections. Medical Records Attestation: I reviewed the patient's medical records. Home Medications Current Medication List: was personally reviewed by me Laboratory Data Attestation: I reviewed the patient's lab results. Result diagrams: 02/09/19 00:26 02/09/19 00:26 Lab Results 02/09/19 02/09/19 02/09/19 Range/Units 00:26 00:26 00:26 WBC 10.14 (4.8-10.8) K/uL RBC 3.58 L (4.7-6.1) M/uL Hgb 9.8 L (14.0-18.0) g/dL Hct 31.4 L (42-52) % MCV 87.7 (80-100) fL MCH 27.4 (25-34) pg MCHC 31.2 L (32-36) g/dL RDW Std Deviation 57.7 H (36.4-46.3) fL RDW Coeff of Kelly 17.8 H (11.5-14.5) % Plt Count 157 (130-400) K/uL MPV 11.0 H (7.4-10.4) fL Immature Gran % (Auto) 0.2 % Neut % (Auto) 87.8 % Lymph % (Auto) 4.1 % [place] % (Auto) 7.5 % Eos % (Auto) 0.2 % Baso % (Auto) 0.2 % Immature Gran # (Auto) 0.02 (0.00-0.02) K/uL Neut # (Auto) 8.90 H (1.4-6.5) K/uL Lymph # (Auto) 0.42 L (1.2-3.4) K/uL [place] # (Auto) 0.76 H (0.11-0.59) K/uL Eos # (Auto) 0.02 (0-0.5) K/uL Baso # (Auto) 0.02 (0-0.2) K/uL Platelet Estimate Normal (Normal) Ovalocytes 1+ PT 10.8 (9.0-12.0) Seconds INR 1.1 (0.9-1.1) APTT 28.7 (21.0-31.0) Seconds PTT Ratio 1.1 Sodium 139 (136-145) mmol/L Potassium 3.7 (3.5-5.1) mmol/L Chloride 108 H (98-107) mmol/L Carbon Dioxide 23 (21-32) mmol/L Anion Gap 8.0 (3-11) BUN 24 H (7-18) mg/dl Creatinine 1.84 H (0.6-1.4) mg/dl Est Cr Clr Drug Dosing 26.8 ml/min Est GFR ( Amer) 37.1 Est GFR (Non-Af Amer) 32.0 BUN/Creatinine Ratio 12.8 (10-20) Glucose 116 H (70-99) mg/dl Calcium 8.6 (8.5-10.1) mg/dl Phosphorus 2.6 (2.5-4.9) mg/dl Magnesium 2.1 (1.8-2.4) mg/dl Total Bilirubin 0.5 (0.2-1) mg/dl AST 9 L (15-37) U/L ALT 14 (12-78) U/L Alkaline Phosphatase 127 H (45-117) U/L Troponin I < 0.015 (0-0.045) ng/ml Total Protein 6.5 (6.4-8.2) gm/dl Albumin 2.9 L (3.4-5.0) gm/dl Globulin 3.6 (2.5-4.0) gm/dl Albumin/Globulin Ratio 0.8 L (0.9-2) Lipase 450 H (73-393) U/L Urine Color Urine Appearance (Clear) Urine pH (4.5-7.5) Ur Specific [place] (1.000-1.030) Urine Protein (Negative) Urine Glucose (UA) (Negative) Urine Ketones (Negative) Urine Blood (Negative) Urine Nitrite (Negative) Urine Bilirubin (Negative) Urine Urobilinogen (Negative) Ur Leukocyte Esterase (Negative) Urine WBC (Auto) (0-5) /hpf Urine RBC (Auto) (0-4) /hpf U Hyaline Cast (Auto) (0-5) /lpf U Epithel Cells (Auto) (0-5) /lpf Urine Bacteria (Auto) (Negative) Urine Yeast 02/09/19 Range/Units 00:57 WBC (4.8-10.8) K/uL RBC (4.7-6.1) M/uL Hgb (14.0-18.0) g/dL Hct (42-52) % MCV (80-100) fL MCH (25-34) pg MCHC (32-36) g/dL RDW Std Deviation (36.4-46.3) fL RDW Coeff of Kelly (11.5-14.5) % Plt Count (130-400) K/uL MPV (7.4-10.4) fL Immature Gran % (Auto) % Neut % (Auto) % Lymph % (Auto) % [place] % (Auto) % Eos % (Auto) % Baso % (Auto) % Immature Gran # (Auto) (0.00-0.02) K/uL Neut # (Auto) (1.4-6.5) K/uL Lymph # (Auto) (1.2-3.4) K/uL [place] # (Auto) (0.11-0.59) K/uL Eos # (Auto) (0-0.5) K/uL Baso # (Auto) (0-0.2) K/uL Platelet Estimate (Normal) Ovalocytes PT (9.0-12.0) Seconds INR (0.9-1.1) APTT (21.0-31.0) Seconds PTT Ratio Sodium (136-145) mmol/L Potassium (3.5-5.1) mmol/L Chloride (98-107) mmol/L Carbon Dioxide (21-32) mmol/L Anion Gap (3-11) BUN (7-18) mg/dl Creatinine (0.6-1.4) mg/dl Est Cr Clr Drug Dosing ml/min Est GFR ( Amer) Est GFR (Non-Af Amer) BUN/Creatinine Ratio (10-20) Glucose (70-99) mg/dl Calcium (8.5-10.1) mg/dl Phosphorus (2.5-4.9) mg/dl Magnesium (1.8-2.4) mg/dl Total Bilirubin (0.2-1) mg/dl AST (15-37) U/L ALT (12-78) U/L Alkaline Phosphatase (45-117) U/L Troponin I (0-0.045) ng/ml Total Protein (6.4-8.2) gm/dl Albumin (3.4-5.0) gm/dl Globulin (2.5-4.0) gm/dl Albumin/Globulin Ratio (0.9-2) Lipase (73-393) U/L Urine Color Yellow Urine Appearance Turbid A (Clear) Urine pH 5.5 (4.5-7.5) Ur Specific [place] 1.017 (1.000-1.030) Urine Protein 2+ H (Negative) Urine Glucose (UA) Negative (Negative) Urine Ketones Negative (Negative) Urine Blood 3+ H (Negative) Urine Nitrite Positive A (Negative) Urine Bilirubin Negative (Negative) Urine Urobilinogen Negative (Negative) Ur Leukocyte Esterase 3+ H (Negative) Urine WBC (Auto) >30 H (0-5) /hpf Urine RBC (Auto) 10-30 H (0-4) /hpf U Hyaline Cast (Auto) 1-5 (0-5) /lpf U Epithel Cells (Auto) >30 H (0-5) /lpf Urine Bacteria (Auto) 4+ H (Negative) Urine Yeast Not Reportable Imaging Data My Impression: Chest X-Ray: Scarring and atelectasis at the right base, suggestion of right sided pleural effusion. No free air. No change from 02/04/19. Radiologist's Impression: Radiology results as stated below per my review and the radiologist's interpretation: CT ABDOMEN & PELVIS Without Contrast: Acute appearing fracture of the left posterior 11th rib. Multilevel degenerative changes of the spine with disc bulges at L2-3 and L3-4with mild to moderate central spinal stenosis. Small to moderate possibly loculated right pleural effusion with pleural thickening raises the possibility of superinfection/empyema. Centrilobular emphysema. Small hiatal hernia. Status post cholecystectomy. No biliary dilatation. Water density cyst in the upper right kidney is likely benign. No hydronephrosis or nephrolithiasis. Circumferential wall thickening of the bladder could be due to underdistention and/or chronic bladder obstruction from the prostatomegaly. Diverticulosis without diverticulitis. No bowel wall thickening or obstruction. There is partial right hemicolectomy. The appendix is not identified and maybe surgically absent. Status post right lower abdominal ventral hernia repair. No hernia recurrence. Severe atherosclerosis. Status post repair of an abdominal aortic aneurysm with extensive stent grafts in the suprarenal and infrarenal abdominal aorta extending into the right common iliac artery and external iliac artery. There is an aneurysm of the infrarenal abdominal aorta measuring 4.3 cm. No surrounding hematoma. Radiologist: Mika Oreilly MD Study ready at 01:13 and initial results transmitted at 01:37 CT HEAD: No acute intracranial hemorrhage, mass effect, midline shift, hydrocephalus or acute infarct. Generalized atrophy. Low-density in the bilateral periventricular white matter is nonspecific but probably represents chronic small vessel ischemic disease. 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 Bony structures are intact. Soft tissues are unremarkable. Radiologist: Mika Oreilly MD Study ready at 01:11 and initial results transmitted at 01:27 ECG Data Attestation: I personally reviewed and interpreted this ECG as follows: Indication: abdominal pain Rate (beats per minute): 81 Rhythm: sinus rhythm Findings: + PAC and + RBBB Comparison ECG Date: from (02/05/19) Change: no significant change Blood Pressure Blood Pressure Findings: Elevated blood pressure Blood Pressure Disposition: further management by hospitalist MDM Narrative The patient is an 89-year-old male who presented to the emergency department for an evaluation of generalized weakness. The patient was recently discharged from our facility although his family members are unsure of the exact discharge in structions. The patient has some underlying dementia but lives alone. I discussed patient's laboratory and radiographic studies with him and his family members. He was also found to have a new urinary tract infection. He was treated with IV antibiotics. I am unsure if the patient is a good candidate for outpatient management without direct supervision. For this reason I discussed his case with the on-call [facility] hospitalist. They have agreed to evaluate the patient in the emergency department for further management disposition. The patient was also found to have a rib fracture but the family members do not remember a recent fall. He also was found to have a pleural effusion. Impression & Plan UTI (urinary tract infection), Confusion, Pleural effusion, Fracture of rib Discharge Plan Visit Data *Final* Discharge Date/Time: 02/09/19 04:06 Chief Complaint: Illness Stated Complaint: JUST DON'T FEEL RIGHT - RELEASED 02/07 ED Provider: Zhang Cardoso Discharge Problem: UTI (urinary tract infection), Confusion, Pleural effusion, Fracture of rib Patient Disposition: Admitted As Inpatient Discharge Instructions Interventions: ED Discharge Assessment Last Done: 02/09/19 04:06 The scribe's documentation has been prepared under my direction and personally reviewed by me in its entirety. I confirm that the note above accurately reflects all work, treatment, procedures, and medical decision making performed by me.
--- NOTE | 2019-02-09 03:42 | History & Physical Report ---
Date of Service February 09, 2019 Assessment & Plan (1) UTI (urinary tract infection): Patient afebrile, hemodynamically stable, nontoxic in appearance. He has no leukocytosis. UA suggestive of infection. Follow culture results Ceftriaxone 1 g IV daily Present on Admission?: Yes (2) Confusion: Patient with some mild confusion prior to arrival. Appears to be clear at present. Possibly secondary to metabolic encephalopathy from UTI. -Treatment of medical problems -Frequent orientation to location, date, time and condition Present on Admission?: Yes (3) Pleural effusion: CT chest with small clean moderate possibly loculated right pleural effusion and pleural thickening. Patient denies chest pain or shortness of breath. He is breathing comfortably and saturating 100% on room air. As above, no leukocytosis or evidence of systemic infection. Possible need for thoracentesis -Consult thoracic surgery for additional recommendations. Appreciate assistance Present on Admission?: Yes (4) Elevated lipase: Mildly elevated lipase to 450. No epigastric tenderness. CT abdomen with no mention of pancreatitis -Repeat lipase in a.m. -Continue to monitor Present on Admission?: Yes (5) Afib: Patient with episode of A. fib with RVR during his last hospital stay. Presently does not appear to be in atrial fibrillation. Rate is controlled at 90 bpm. Patient with history of AV block in the past therefore should avoid daily beta-toñito or calcium channel toñito use. He would benefit from anticoagulation with Eliquis for stroke prevention however, will continue to hold this due to recent GI bleed. Patient follows with Dr. Prince who saw him in consultation during his last hospital stay. He is recommended to follow- up with cardiology in 2 to 4 weeks with plans to initiate systemic anticoagulation at that time. -Continue to monitor heart rate Present on Admission?: Yes (6) Peptic ulcer disease: Status post EGD earlier this month. No evidence of active bleeding at present. Patient denies abdominal pain. H&H is stable. He is now tolerating p.o. without difficulty -Continue Protonix 40 mg p.o. daily Continue Pepcid 20 mg p.o. twice daily Continue Carafate Present on Admission?: Yes (7) Gout: Chronic. Stable. Continue allopurinol Present on Admission?: Yes (8) GERD (gastroesophageal reflux disease): Chronic. Stable. -Continue Protonix, Pepcid, Carafate Present on Admission?: Yes (9) Chronic anemia: Baseline hemoglobin of approximately 10, presents today with hemoglobin of 9.8. Patient with recent GI bleed. Iron studies with iron = 14, TIBC = 222, transferrin = 183, ferritin = 45.9. No evidence of active bleeding at this time. Continue to monitor Continue iron supplementation Present on Admission?: Yes (10) Hypokalemia: K = 3.7. -Continue p.o. supplementation based on BMP Present on Admission?: Yes (11) Hypomagnesemia: Chronic. Well-controlled. Continue p.o. magnesium Present on Admission?: Yes (12) Depression: Chronic. Well-controlled. Continue escitalopram Present on Admission?: Yes (13) BPH (benign prostatic hyperplasia): Chronic. Patient now with UTI, had James catheter in place during his last hospital stay. States he is voiding without difficulty. Continue dutasteride Monitor I/O, straight cath as needed Present on Admission?: Yes (14) Diabetes mellitus: Chronic. Well-controlled. A1c = 6.4 on 01/12/2019 Lantus 5 units twice daily Insulin sliding scale Goal blood sugar 1001 40 while inpatient Present on Admission?: Yes (15) Hyperlipidemia: Chronic. Stable. Continue atorvastatin Present on Admission?: Yes (16) Hypertension: Blood pressure mildly elevated presently at 162/59. Continue losartan Continue Lasix Continue to monitor Present on Admission?: Yes (17) PAD (peripheral artery disease): Chronic. Stable. Extremities are well perfused with palpable pulses. Continue cilostazol Present on Admission?: Yes (18) Stage III chronic kidney disease: Renal function back to baseline. BUN = 24, creatinine = 1.84 Encourage p.o. intake Continue to monitor renal function Avoid nephrotoxic agents Present on Admission?: Yes History of Present Illness Chief Complaint: "not feeling right" Primary Care Provider: Dallas Jacobo MD Tasneem Mckeon is a pleasant 89yo C male with multiple medical problems, notably PAD/HTN/GERD/CKD-III/DM/HLP/PUD. Remote history of colon cancer s/p right colectomy. Patient was seen in the ER on 01/27 with complaint of chest discomfort. He was found to have anemia and FOBT+ stools. He had an EGD performed on 01/[address] Carter which revealed LA Grade C reflux esophagitis, many non-bleeding gastric ulcers with pigmented material and a single duodenal polyp which was resected (Pathology results show tubulovillous adenoma). He was discharged home in stable condition on 01/30/19 - started on Protonix 40mg po daily and Carafate QID. He returned to the ER on 02/05/19 with complaint of nausea and vomiting. He was acutely dehydrated with HAYLEE on CKD. He was evaluated by GI during that hospitalization and recommended to continue the Protonix, Pepcid and Carafate. He was evaluated by Cardiology after an episode of AF with RVR and was recommended Lopressor PRN, anticoagulation in the future with Eliquis. He was hydrated with improvement in his renal function. Cr on day of discharge was 1.9, down from 3.07. Patient lives alone, has family close by for assistance. He returned home yesterday. Since then he is complaining of some mild lower abdominal discomfort as well as dysuria and "not feeling right". His daughter called him last night after returning home and said that he felt tired and was a little confused. He went to sleep around 20:00. His family called him today around 1400 and he was still in bed. He did not eat anything or take his medications. He called his daughter later in the day and told her that he didn't feel good and wanted to come to the hospital. He denies fevers/chills/sweats/nausea/vomiting/diarrhea or constipation. He had a normal BM. Denies abdominal pain/CP/palpitations/cough/SOB. No additional complaints. ER Course: Ceftriaxone Allergies Allergy/AdvReac Type Severity Reaction Status Date / Time amoxicillin Allergy Severe HIVES; Verified 02/08/19 23:59 ANGIOEDEMA lisinopril Allergy Mild HIVES Verified 02/08/19 23:59 Penicillins Allergy Mild HIVES Verified 02/08/19 23:59 Home Medications Home Medications Medication Instructions Recorded Confirmed Type escitalopram 10 mg tablet 10 mg PO DAILY #30 tab 10/02/18 02/09/19 Rx allopurinol 100 mg tablet 100 mg PO DAILY #30 tab 10/07/18 02/09/19 Rx atorvastatin 10 mg tablet 10 mg PO DAILY #30 tab 10/07/18 02/09/19 Rx dutasteride 0.5 mg capsule 0.5 mg PO DAILY #90 cap 10/07/18 02/09/19 Rx ferrous sulfate 325 mg (65 mg 325 mg PO DAILY #30 tab 01/05/19 02/09/19 Rx iron) tablet ergocalciferol (vitamin D2) 50,000 units PO MONTHLY 01/11/19 02/09/19 History furosemide 20 mg PO 2XWK 01/11/19 02/09/19 History losartan 50 mg PO DAILY 01/11/19 02/09/19 History magnesium chloride 256 mg PO DAILY #120 tab 01/15/19 02/09/19 Rx potassium chloride 20 meq PO BID #60 tab 01/15/19 02/09/19 Rx ondansetron 4 mg PO Q6H PRN 14 Days #30 ea 01/30/19 02/09/19 Rx pantoprazole 40 mg PO QAM 30 Days #30 tab 01/30/19 02/09/19 Rx sucralfate 10 ml PO ACHS 30 Days #420 ml 01/30/19 02/09/19 Rx cilostazol 100 mg PO BID 02/04/19 02/09/19 History famotidine 20 mg PO BID 30 Days #60 tab 02/07/19 02/09/19 Rx Past Med/Surg History Medical History Hypokalemia (Chronic) Hypomagnesemia (Acute) Depression (Acute) Colon cancer (Chronic) BPH (benign prostatic hyperplasia) (Acute) Aneurysm of abdominal aorta (Chronic) Carotid artery stenosis (Acute) Diabetes mellitus (Acute) Diabetic neuropathy (Acute) Hyperlipidemia (Acute) Hypertension (Chronic) Non-small cell lung cancer (Acute) Lower & Upper PAD (peripheral artery disease) (Acute) Second degree AV block (Acute) 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 gout (Resolved) Acid reflux disease with ulcer (Inactive) Anemia (Inactive) Lung nodule (Inactive) Pulmonary emphysema (Inactive) Vitamin D deficiency (Inactive) Surgical History H/O hernia repair History of AAA (abdominal aortic aneurysm) repair History of appendectomy History of cholecystectomy History of colon surgery History of lung surgery Family History Father COPD (chronic obstructive pulmonary disease) Cancer lung cancer Mother Cancer lung Brother Hypertension COPD (chronic obstructive pulmonary disease) Son Cancer liver Social History Preferred Language: Kiswahili Communication Ability: Effective Patrol Agent Required: No Beliefs That Will Affect Care: None marital status: / Current Living Situation: Alone Feels Safe at Home: Yes Smoking Status: Former smoker Cigarettes Per Day: 20 ; Hx Alcohol Use: No Hx Substance Use: No Review of Systems Review of Systems: All systems reviewed & are unremarkable except as noted in HPI & below Physical Exam Physical Exam: General: patient resting comfortably, NAD, non-toxic in appearance, AA&O x 4 Skin: warm, dry, intact, no rashes or lesions HEENT: NC/AT, PERRL, EOMI, anicteric sclera, conjunctiva without injection, external ear normal to inspection and nontender, nares patent, moist mucus membr anes, dentures in place, no oropharyngeal lesions, neck supple, trachea midline, no LAD, no thyromegaly, no JVD Heart: +S1/S2, irregular, 82 bpm, 3/6 JOHN at 2nd right ICS across precordium Lungs: equal air entry bilaterally, no rales/rhonchi/wheezes Abd: +BS, soft, NT/ND, no masses/organomegaly/ascites, no epigastric tenderness Ext: warm, 2+ pulses in UE/LE bilaterally, no clubbing/cyanosis or edema Neuro: nonfocal, patient AA&O x 4, speech intact, no facial droop, moving all extremities on command with equal strength 5/5 Results & Data Vital Signs (Past 12 Hours) Vital Signs Temp Pulse Pulse Resp BP BP Pulse Ox 02/09/19 00:38 82 20 150/97 H 96 02/09/19 00:35 85 20 99 02/08/19 23:47 36.6 C 53 L 18 142/67 H 99 Laboratory Results Lab Results 02/09/19 02/09/19 02/09/19 Range/Units 00:26 00:26 00:26 WBC 10.14 (4.8-10.8) K/uL RBC 3.58 L (4.7-6.1) M/uL Hgb 9.8 L (14.0-18.0) g/dL Hct 31.4 L (42-52) % MCV 87.7 (80-100) fL MCH 27.4 (25-34) pg MCHC 31.2 L (32-36) g/dL RDW Std Deviation 57.7 H (36.4-46.3) fL RDW Coeff of Kelly 17.8 H (11.5-14.5) % Plt Count 157 (130-400) K/uL MPV 11.0 H (7.4-10.4) fL Immature Gran % (Auto) 0.2 % Neut % (Auto) 87.8 % Lymph % (Auto) 4.1 % [place] % (Auto) 7.5 % Eos % (Auto) 0.2 % Baso % (Auto) 0.2 % Immature Gran # (Auto) 0.02 (0.00-0.02) K/uL Neut # (Auto) 8.90 H (1.4-6.5) K/uL Lymph # (Auto) 0.42 L (1.2-3.4) K/uL [place] # (Auto) 0.76 H (0.11-0.59) K/uL Eos # (Auto) 0.02 (0-0.5) K/uL Baso # (Auto) 0.02 (0-0.2) K/uL Platelet Estimate Normal (Normal) Ovalocytes 1+ PT 10.8 (9.0-12.0) Seconds INR 1.1 (0.9-1.1) APTT 28.7 (21.0-31.0) Seconds PTT Ratio 1.1 Sodium 139 (136-145) mmol/L Potassium 3.7 (3.5-5.1) mmol/L Chloride 108 H (98-107) mmol/L Carbon Dioxide 23 (21-32) mmol/L Anion Gap 8.0 (3-11) BUN 24 H (7-18) mg/dl Creatinine 1.84 H (0.6-1.4) mg/dl Est Cr Clr Drug Dosing 26.8 ml/min Est GFR ( Amer) 37.1 Est GFR (Non-Af Amer) 32.0 BUN/Creatinine Ratio 12.8 (10-20) Glucose 116 H (70-99) mg/dl Calcium 8.6 (8.5-10.1) mg/dl Total Bilirubin 0.5 (0.2-1) mg/dl AST 9 L (15-37) U/L ALT 14 (12-78) U/L Alkaline Phosphatase 127 H (45-117) U/L Troponin I < 0.015 (0-0.045) ng/ml Total Protein 6.5 (6.4-8.2) gm/dl Albumin 2.9 L (3.4-5.0) gm/dl Globulin 3.6 (2.5-4.0) gm/dl Albumin/Globulin Ratio 0.8 L (0.9-2) Lipase 450 H (73-393) U/L Urine Color Urine Appearance (Clear) Urine pH (4.5-7.5) Ur Specific [place] (1.000-1.030) Urine Protein (Negative) Urine Glucose (UA) (Negative) Urine Ketones (Negative) Urine Blood (Negative) Urine Nitrite (Negative) Urine Bilirubin (Negative) Urine Urobilinogen (Negative) Ur Leukocyte Esterase (Negative) Urine WBC (Auto) (0-5) /hpf Urine RBC (Auto) (0-4) /hpf U Hyaline Cast (Auto) (0-5) /lpf U Epithel Cells (Auto) (0-5) /lpf Urine Bacteria (Auto) (Negative) Urine Yeast 02/09/19 Range/Units 00:57 WBC (4.8-10.8) K/uL RBC (4.7-6.1) M/uL Hgb (14.0-18.0) g/dL Hct (42-52) % MCV (80-100) fL MCH (25-34) pg MCHC (32-36) g/dL RDW Std Deviation (36.4-46.3) fL RDW Coeff of Kelly (11.5-14.5) % Plt Count (130-400) K/uL MPV (7.4-10.4) fL Immature Gran % (Auto) % Neut % (Auto) % Lymph % (Auto) % [place] % (Auto) % Eos % (Auto) % Baso % (Auto) % Immature Gran # (Auto) (0.00-0.02) K/uL Neut # (Auto) (1.4-6.5) K/uL Lymph # (Auto) (1.2-3.4) K/uL [place] # (Auto) (0.11-0.59) K/uL Eos # (Auto) (0-0.5) K/uL Baso # (Auto) (0-0.2) K/uL Platelet Estimate (Normal) Ovalocytes PT (9.0-12.0) Seconds INR (0.9-1.1) APTT (21.0-31.0) Seconds PTT Ratio Sodium (136-145) mmol/L Potassium (3.5-5.1) mmol/L Chloride (98-107) mmol/L Carbon Dioxide (21-32) mmol/L Anion Gap (3-11) BUN (7-18) mg/dl Creatinine (0.6-1.4) mg/dl Est Cr Clr Drug Dosing ml/min Est GFR ( Amer) Est GFR (Non-Af Amer) BUN/Creatinine Ratio (10-20) Glucose (70-99) mg/dl Calcium (8.5-10.1) mg/dl Total Bilirubin (0.2-1) mg/dl AST (15-37) U/L ALT (12-78) U/L Alkaline Phosphatase (45-117) U/L Troponin I (0-0.045) ng/ml Total Protein (6.4-8.2) gm/dl Albumin (3.4-5.0) gm/dl Globulin (2.5-4.0) gm/dl Albumin/Globulin Ratio (0.9-2) Lipase (73-393) U/L Urine Color Yellow Urine Appearance Turbid A (Clear) Urine pH 5.5 (4.5-7.5) Ur Specific [place] 1.017 (1.000-1.030) Urine Protein 2+ H (Negative) Urine Glucose (UA) Negative (Negative) Urine Ketones Negative (Negative) Urine Blood 3+ H (Negative) Urine Nitrite Positive A (Negative) Urine Bilirubin Negative (Negative) Urine Urobilinogen Negative (Negative) Ur Leukocyte Esterase 3+ H (Negative) Urine WBC (Auto) >30 H (0-5) /hpf Urine RBC (Auto) 10-30 H (0-4) /hpf U Hyaline Cast (Auto) 1-5 (0-5) /lpf U Epithel Cells (Auto) >30 H (0-5) /lpf Urine Bacteria (Auto) 4+ H (Negative) Urine Yeast Not Reportable Diagnostic Findings CT abdomen and pelvis without contrast: Per stat rad acute appearing fractures of the left posterior 11th rib. Multilevel degenerative changes of the spine with disc bulges at L2-3 and L3-4 with mild to moderate central spinal stenosis. Small to moderate possibly loculated right pleural effusion with pleural thickening raises the possibility of super infection/empyema. Centrilobular emphysema. Small hiatal hernia Status post cholecystectomy. No biliary dilatation. Water density cyst in the upper right kidney is likely benign. No hydronephrosis or nephrolithiasis. Circumferential wall thickening of the bladder could be due to under distention and/or chronic bladder obstruction from the prostamegaly. Diverticulosis without diverticulitis. No bowel wall thickening or obstruction. There is partial right hemicolectomy. The appendix is not identified and may be surgically absent. Status post right lower abdominal ventral hernia repair. No hernia recurrence. Severe atherosclerosis. Status post repair of an abdominal aortic aneurysm with extensive stent grafts in the suprarenal and infrarenal abdominal aorta extending into the right common iliac artery and external iliac artery. There is an aneurysm of the infrarenal abdominal aorta measuring 4.3 cm. No surrounding hematoma CT head: Per stat rad No acute intracranial hemorrhage, mass-effect, midline shift, hydrocephalus or acute infarct. Generalized atrophy. Low density in the bilateral periventricular white matter is nonspecific but probably represents chronic small vessel ischemic disease. 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 Bony structures are intact. Soft tissues are unremarkable ECG Additional Comments: Study shows undetermined rhythm, rate of 81, left axis jet ation, QRS = 118, QTc = 450, right bundle branch block present Code Status & VTE Plan Code Status Full code VTE Prophylaxis Plan VTE Prophylaxis will be ordered: No PG Care Time/CCT Total # of Minutes Spent Total Time Spent with Patient: Total time spent is greater than 50% in coordination of care (as documented) at patient's floor/unit and/or counseling patient: (1) UTI (urinary tract infection) Hematuria presence: with hematuria Urinary tract infection type: site unspecified Qualified Code(s): N39.0 - Urinary tract infection, site not specified; R31.9 - Hematuria, unspecified (2) Afib Atrial fibrillation type: paroxysmal Qualified Code(s): I48.0 - Paroxysmal atrial fibrillation (3) Gout Gout site: unspecified site Gout etiology: unspecified cause Chronicity: unspecified Qualified Code(s): M10.9 - Gout, unspecified (4) GERD (gastroesophageal reflux disease) Esophagitis presence: esophagitis presence not specified Qualified Code(s): K21.9 - Gastro-esophageal reflux disease without esophagitis (5) Depression Depression Type: major depressive disorder Major depression recurrence: unspecified whether recurrent Active/Remission status: in full remission Qualified Code(s): F32.5 - Major depressive disorder, single episode, in full remission (6) BPH (benign prostatic hyperplasia) Lower urinary tract symptom presence: symptoms absent Qualified Code(s): N40.0 - Benign prostatic hyperplasia without lower urinary tract symptoms (7) Diabetes mellitus Diabetes mellitus complication status: with other specified complication Diabetes mellitus emt intermediate insulin use: unspecified emt intermediate insulin use status Diabetes mellitus type: other specified (including ISIDRA) Qualified Code(s): E13.69 - Other specified diabetes mellitus with other specified complication (8) Hyperlipidemia Hyperlipidemia type: unspecified Qualified Code(s): E78.5 - Hyperlipidemia, unspecified (9) Hypertension Hypertension type: unspecified Qualified Code(s): I10 - Essential (primary) hypertension
[2019-02-09] MEDS ORDERED: GLUCOSE 40% GEL 15 GM TUBE PO PRN (04:22)
[2019-02-09] MEDS ORDERED: GLUCAGON FOR INJ 1 MG VIAL SQ PRN (04:22)
[2019-02-09] MEDS ORDERED: GLUCOSE 10 TABS/TUBE PO PRN (04:22)
[2019-02-09] MEDS ORDERED: CARBOHYDRATES FOR HYPOGLYCEMIA PO PRN (04:22)
[2019-02-09] MEDS ORDERED: DEXTROSE 50% 50 ML SYRINGE IV PRN (04:22)
[2019-02-09] MEDS ORDERED: DOCUSATE SODIUM 100 MG CAP PO PRN (04:22)
[2019-02-09] MEDS ORDERED: ONDANSETRON 4 MG TAB PO PRN (04:22)
[2019-02-09] MEDS ORDERED: ACETAMINOPHEN 325 MG TAB PO PRN (04:22)
[2019-02-09 04:37] LABS: Magnesium 2.1 mg/dl (1.8-2.4); Phosphorus 2.6 mg/dl (2.5-4.9)
[2019-02-09] MEDS: AVODART~ORDER AWAITING ACTION SCH ×3 (06:31→16:08)
--- NOTE | 2019-02-09 06:33 | XRay Report ---
XR chest 1V portable HISTORY: 89 years-old Male pain acute epigastric abdominal pain COMPARISON: CT abdomen and pelvis of same day, chest radiograph 02/04/2019 TECHNIQUE: Portable AP view of the chest FINDINGS: Cardiac and mediastinal silhouettes appear unchanged. No pneumothorax. Postoperative changes of the r ight hemithorax redemonstrated. Unchanged small right pleural effusion with obscuration of the right cardiophrenic angle. Unchanged pleural thickening of the right lung apex. Unchanged right basilar opa cities. Emphysema. No overt pulmonary edema. Degenerative changes of the shoulders and spine. Partial ly imaged vascular graft of the upper abdomen. IMPRESSION: 1. Emphysema without acute process. 2. Postoperative changes of the right lung with unchanged small right pleural effusion and right lung base opacities suggestive of scarring/atelectasis. The above report was generated using voice recognition software. It may contain grammatical, syntax o r spelling errors. Electronically signed by: Lenny Jarvis M.D. 02/09/2019 6:32 AM
--- NOTE | 2019-02-09 06:46 | CT Scan Report ---
CT OF THE HEAD WITHOUT CONTRAST CLINICAL HISTORY: confusion COMPARISON STUDY: Head CT February 14, 2017. CT DOSE: 614.27 mGy.cm TECHNIQUE: Helical axial images of the head were obtained without IV contrast. Automated exposure con trol was utilized for the study. A dose lowering technique was utilized adhering to the principles o f ALARA. FINDINGS: No acute intracranial hemorrhage, midline shift or mass effect is present. The ventricular system is stable. The basilar cisterns are patent. No extra-axial collections are present. There are no findings to suggest acute dural sinus thrombosis or acute territorial infarct. No significant calv arial abnormalities are present. Visualized portions of the sinuses. Trace fluid within the inferior left mastoid cells is noted. White matter hypodensity suggests small vessel disease. Old left basal g anglia lacunar infarct is unchanged. IMPRESSION: No acute intracranial findings. Electronically signed by: Kristian Malone M.D. 02/09/2019 6:45 AM
--- NOTE | 2019-02-09 07:51 | CT Scan Report ---
ABDOMEN AND PELVIS CT WITHOUT CONTRAST CT DOSE: 322.36 mGy.cm HISTORY: Upper abdominal pain. TECHNIQUE: Multiaxial CT images of the abdomen and pelvis were performed without contrast. A dose lo wering technique was utilized adhering to the principles of ALARA. COMPARISON STUDY: Abdomen and pelvis CT 05/23/2017. FINDINGS: Emphysema. Small right pleural effusion has slightly increased in size. There is right basi lar pleural thickening. This is similar to the prior study and is likely due to the chronic pleural e ffusion. Small hiatus hernia. Cholecystectomy. The unenhanced liver, spleen, adrenal glands, and panc reas are unremarkable. Stable 2.8 cm hypodense lesion within the right kidney. This favors a cyst. No hydronephrosis. Mild bilateral perinephric edema, unchanged. This is likely chronic. No retroperiton eal lymphadenopathy. Tiny fat-containing supraumbilical hernia and a few additional small left-sided fat-containing ventral hernias. Prior mesh repair of a right lower quadrant hernia. Thickened bladder which is decompressed and demonstrates mild adjacent fat stranding. The prostate gland is enlarged. No retroperitoneal lymphadenopathy. Aortobiiliac stent graft repair of abdominal aortic aneurysm. Ane urysm sac is similar in size measuring 4.1 x 4.2 cm. No retroperitoneal hematoma. There is also a fem oral-femoral bypass graft noted. Suboptimal evaluation for bowel pathology due to the lack of intrave nous and oral contrast. However, there is no definite bowel wall thickening or obstruction. Colonic d iverticulosis. No evidence for diverticulitis. Postoperative changes noted within the right lower judah drant. This suggests prior bowel resection. IMPRESSION: 1. Diffusely thickened bladder wall with associated fat stranding. This may represent a cystitis. Rec ommend correlation with urinalysis. 2. Prior aortobiiliac stent graft repair of an abdominal aortic aneurysm. No change in size in the 4. 2 cm infrarenal abdominal aortic aneurysm. 3. Small right pleural effusion with right basilar pleural thickening. This is likely chronic. 4. Postoperative changes as described above. Electronically signed by: Aditya Sandoval M.D. 02/09/2019 7:50 AM
[2019-02-09] MEDS: SUCRALFATE 1 GM/10 ML UDC PO SCH ×4 (08:21→20:31)
[2019-02-09] MEDS: LOSARTAN POTASSIUM 50 MG TAB PO SCH (08:21)
[2019-02-09] MEDS: FERROUS SULFATE 325 MG TAB PO SCH (08:22)
[2019-02-09] MEDS: POTASSIUM CHLORIDE 20 MEQ TABCR PO SCH ×2 (08:22→17:10)
[2019-02-09] MEDS: FUROSEMIDE 20 MG TAB PO SCH (08:24)
[2019-02-09] MEDS: ESCITALOPRAM OXALATE 10 MG TAB PO SCH (08:24)
[2019-02-09] MEDS: ATORVASTATIN 10 MG TAB PO SCH (08:24)
[2019-02-09] MEDS: PANTOprazole 40 MG TAB PO SCH (08:25)
[2019-02-09] MEDS: CILOSTAZOL 100 MG TAB PO SCH ×2 (08:25→20:30)
[2019-02-09] MEDS: FAMOTIDINE 20 MG TAB PO SCH ×2 (08:25→20:30)
[2019-02-09] MEDS: MAGNESIUM CHLORIDE 64MG DELAYED REL TAB PO SCH (08:26)
[2019-02-09] MEDS: ALLOPURINOL 100 MG TAB PO SCH (08:27)
[2019-02-09] MEDS: INSULIN ASPART 100 UNITS/ML 3 ML PEN SC SCH ×4 (08:38→21:17)
[2019-02-09] MEDS ORDERED: INSULIN GLARGINE SOLOSTAR 100 UNITS/ML 3 ML PEN SC SCH (09:00)
--- NOTE | 2019-02-09 09:57 | Consultation Report ---
DATE OF CONSULTATION: 02/09/2019 REASON FOR CONSULTATION: Right pleural effusion. 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 He has a history of cigarette smoking, first smoke age 15, he smoked for probably 50 years a pack a day, but quit smoking more than 20 years ago. The patient presented with some confusion, was found to have evidence of a possible urinary tract infection. He is better this morning. I was asked to see him because the CT scan of his abdomen showed evidence of a pleural effusion on the right. The patient denies any respiratory problems. His saturations are 100% on room air this morning when I checked it. He states that he notes no dyspnea on exertion, although he is "slow down a lot" in his upper 80s. I have been asked to comment on this effusion from a thoracic surgery standpoint. PAST MEDICAL HISTORY: 1. Gastroesophageal reflux disease. 2. Reflux esophagitis with anemia. 3. Benign prostatic hypertrophy. 4. Diabetes mellitus. 5. Hyperlipidemia. 6. Hypertension. 7. Renal insufficiency. 8. History of gout. 9. Atrial fibrillation which is episodic. PAST SURGICAL HISTORY: 1. Endovascular aortic repair of abdominal aortic aneurysm. 2. History of inguinal herniorrhaphy. 3. Appendectomy. 4. Cholecystectomy. 5. Colon resection for cancer. HOME MEDICATIONS: 1. Allopurinol. 2. Cilostazol. 3. Atorvastatin. 4. Avodart. 5. Pepcid. 6. Escitalopram. 7. Vitamin D2. 8. Lasix. 9. Iron supplements. 10. Losartan. 11. Pantoprazole. 12. Zofran. 13. Carafate. 14. Potassium supplements. ALLERGIES: PENICILLIN CAUSES HIVES AND ANGIOEDEMA AND LISINOPRIL CAUSES HIVES. SOCIAL HISTORY: The patient is a retired barnworker groom. He is , lives alone. His children live nearby. He does not smoke cigarettes or drink alcohol currently. He is fairly independent in his activities of daily living. REVIEW OF SYSTEMS: The patient's weight has been relatively stable. He was recently admitted and then discharged with some GI complaints. He has also had some chest pain recently. He has a history of a GI bleed. He recently had an esophagogastroscopy by Dr. King Carter which revealed some reflux esophagitis with gastric ulcers. He also had a duodenal polyp. He has had issues with his creatinine. It is as high as 3.07, recently is down at 1.9 upon discharge. He was not home very long when he came back in with his confusion and "did not feel right." He states he feels much better today. He has had no fevers or chills. He has been moving his bowels. He has had no neurologic events such as seizures or stroke-like symptoms. PHYSICAL EXAMINATION: GENERAL: This is a very pleasant 5 feet 10 inch, 145 pound male who is awake and alert. HEENT: His extraocular movements are intact. Sclerae are pale, but anicteric. He has no nasolabial flattening. His oral mucosa is a bit dry, but he has no ulcerations. He has upper and lower denture plates. NECK: Supple. He has no neck vein distention, thyromegaly or carotid bruits. LUNGS: He does have some decreased breath sounds on the right side. He has no wheezing or rales. HEART: He has a regular rate and rhythm now in the 90s, although apparently he was in atrial fibrillation earlier. ABDOMEN: He has a well-healed abdominal incision. He also has a right subcostal margin incision. I feel no evidence of hernia. I do palpate femoral pulses. He does not have any peripheral edema or joint effusions. I have difficulty palpating his posterior tibialis pulses. NEUROLOGIC: He moves all extremities. Awake and alert. I closely reviewed his CT scan and compared it with a CT scan which was performed 4 months ago. This is a small effusion in the right base and it has a peel around it. This is chronic. I doubt this is malignant or infected as we would be seeing signs by now. At this point, given his lack of pulmonary symptoms, I would not address this. I will be glad to see him in followup in the office with a CT scan in a month or so, but at this point, I would not address this effusion. ANNIE
--- NOTE | 2019-02-09 10:50 | Hospitalist Progress Note ---
Date of Service February 09, 2019 Assessment & Plan (1) UTI (urinary tract infection): - Remains afebrile, non-toxic, and hemodynamically stable - UA suggestive of infection with Cx pending - Continue Ceftriaxone 1 g IV daily pending culture Present on Admission?: Yes (2) Confusion: - Pt with mild confusion on admission but continues to appear resolved - likely secondary to metabolic encephalopathy from UTI vs mild dehydration - Treatment as above Present on Admission?: Yes (3) Pleural effusion: - CT with R pleural effusion and thickening - no respiratory symptoms - CT Surg consulted - no immediate intervention warranted at this time and will F/U in 1 month Present on Admission?: Yes (4) Elevated lipase: - Mild elevation at 450 - no abdominal complaints and no CT evidence of pancreatitis - will repeat Lipase with AM labs Present on Admission?: Yes (5) Afib: - Paroxysmal in nature - examines in a RRR -- 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 Dsouza Present on Admission?: Yes (6) Peptic ulcer disease: - S/P EGD - no active bleeding at present and H&H stable - Continue Protonix 40 mg daily, Carafate ACHS, and Pepcid 20 mg BID Present on Admission?: Yes (7) Gout: - Chronic - no exacerbation - Continue Allopurinol 100 mg daily Present on Admission?: Yes (8) Chronic anemia: - Baseline Hgb around 10; no evidence of active bleeding -- Iron 14; TIBC 222; transferrin 183; ferritin 45.9 - Continue ferrous sulfate daily Present on Admission?: Yes (9) Depression: - Chronic/Stable - Lexapro 10 mg daily Present on Admission?: Yes (10) BPH (benign prostatic hyperplasia): - Chronic - Continue Dutasteride Present on Admission?: Yes (11) Diabetes mellitus: - Chronic; Controlled - A1c 6.4 - Will cover with liberal SSI if needed Present on Admission?: Yes (12) Hyperlipidemia: - Chronic/Stable - Atorvastatin 10 mg daily Present on Admission?: Yes (13) Hypertension: - BP 140-160 systolic and seems to trend largely this way - will not overcorrect as he is asymptomatic - Continue Losartan 50 mg daily, Lasix 20 mg on M/Th Present on Admission?: Yes (14) PAD (peripheral artery disease): - Chronic/Stable - Cilostazol 100 mg BID Present on Admission?: Yes (15) Stage III chronic kidney disease: Renal function back to baseline - can routinely monitor - Avoid nephrotoxic agents (16) DVT prophylaxis: - SCDs given recent GI bleed Disposition: Await UCx and Abx adjustments - possibly home tomorrow Subjective Pt admitted early this AM for not feeling well and some confusion. He states he is feeling okay today but not completely back to his normal. He did have a loose bowel movement today but states he had a normal BM yesterday. He reports he did get some sleep this AM since admission but is tired. Assisted with walking to the bathroom and he states he feels at his baseline strength ochoa and was steady on his feet. Review of Systems Constitutional: no fever and no chills Respiratory: no cough and no dyspnea Cardiovascular: no chest pain, no palpitations, no lightheadedness and no edema Gastrointestinal: + diarrhea/loose stools (x 1 episode); no abdominal pain, no nausea and no vomiting Integumentary: no rash Neurologic: no unsteadiness and no generalized weakness Physical Exam Constitutional: well developed and well nourished; no acute distress and not ill appearing Eyes: + anicteric sclerae Neck: trachea midline Respiratory: normal respiratory effort Auscultation: lungs clear to auscultation bilaterally and + diminished lung sounds (bases b/l) Cardiovascular: Rate/Rhythm: regular rate and regular rhythm Gastrointestinal (Abdomen): Inspection/Auscultation: normal bowel sounds Percussion/Palpation: abdomen soft; abdomen nontender Musculoskeletal: Head/Neck/Chest: normocephalic and head atraumatic Skin: no rashes, warm and dry Neurologic: moves all extremities Psychiatric: A+Ox3, euthymic affect Results & Data Vital Signs (Past 12 Hours) Vital Signs Temp Pulse Pulse Pulse Resp BP BP 02/09/19 07:14 36.8 C 97 H 16 149/77 H 02/09/19 04:30 36.7 C 111 H 22 02/09/19 03:17 90 16 162/59 H 02/09/19 00:38 82 20 150/97 H 02/09/19 00:35 85 20 02/09/19 00:30 84 15 150/97 H 02/08/19 23:47 36.6 C 53 L 18 142/67 H BP Pulse Ox 02/09/19 07:14 100 02/09/19 04:30 165/80 H 97 02/09/19 03:17 100 02/09/19 00:38 96 02/09/19 00:35 99 02/09/19 00:30 100 02/08/19 23:47 99 PG Care Time/CCT Total # of Minutes Spent Total Time Spent with Patient: Total time spent is greater than 50% in coordination of care (as documented) at patient's floor/unit and/or counseling patient: (1) UTI (urinary tract infection) Hematuria presence: with hematuria Urinary tract infection type: site unspecified Qualified Code(s): N39.0 - Urinary tract infection, site not specified; R31.9 - Hematuria, unspecified (2) Afib Atrial fibrillation type: paroxysmal Qualified Code(s): I48.0 - Paroxysmal atrial fibrillation (3) Gout Gout site: unspecified site Gout etiology: unspecified cause Chronicity: unspecified Qualified Code(s): M10.9 - Gout, unspecified (4) Depression Depression Type: major depressive disorder Major depression recurrence: unspecified whether recurrent Active/Remission status: in full remission Qualified Code(s): F32.5 - Major depressive disorder, single episode, in full remission (5) BPH (benign prostatic hyperplasia) Lower urinary tract symptom presence: symptoms absent Qualified Code(s): N40.0 - Benign prostatic hyperplasia without lower urinary tract symptoms (6) Diabetes mellitus Diabetes mellitus complication status: with other specified complication Diabetes mellitus ferry terminal agent insulin use: unspecified ferry terminal agent insulin use status Diabetes mellitus type: other specified (including ISIDRA) Qualified Code(s): E13.69 - Other specified diabetes mellitus with other specified complication (7) Hyperlipidemia Hyperlipidemia type: unspecified Qualified Code(s): E78.5 - Hyperlipidemia, unspecified (8) Hypertension Hypertension type: unspecified Qualified Code(s): I10 - Essential (primary) hypertension
[2019-02-10] MEDS: AVODART~ORDER AWAITING ACTION SCH ×3 (01:22→16:54)
[2019-02-10] MEDS: cefTRIAXone SODIUM 1,000 MG in DEXTROSE 5% 50 ML IV SCH (01:29)
[2019-02-10 05:47] LABS: Basophils # (auto) 0.02 K/uL (0-0.2); Basophils % (auto) 0.2 %; Eosinophils # (auto) 0.17 K/uL (0-0.5); Eosinophils % (auto) 1.6 %; Hematocrit (blood only) 26.6 % (42-52); Hemoglobin 8.6 g/dL (14.0-18.0); Immature Granulocytes # (auto) 0.02 K/uL (0.00-0.02); Immature Granulocytes % (auto) 0.2 %; Lymphocytes # (auto) 0.83 K/uL (1.2-3.4); Lymphocytes % (auto) 7.6 %; Mean Corpuscular Hemoglobin 27.7 pg (25-34); Mean Corpuscular Hgb Conc 32.3 g/dL (32-36); Mean Corpuscular Volume 85.5 fL (80-100); Mean Platelet Volume 10.7 fL (7.4-10.4); Monocytes # (auto) 1.34 K/uL (0.11-0.59); Monocytes % (auto) 12.2 %; Neutrophils # (auto) 8.56 K/uL (1.4-6.5); Neutrophils % (auto) 78.2 %; Platelet Count 101 K/uL (130-400); RDW Coefficient of Variation 17.7 % (11.5-14.5); RDW Standard Deviation 56.2 fL (36.4-46.3); Red Blood Count 3.11 M/uL (4.7-6.1); White Blood Count 10.94 K/uL (4.8-10.8)
[2019-02-10 06:23] LABS: Albumin Level 2.5 gm/dl (3.4-5.0); BUN Creatinine Ratio 14.6 (10-20); Bilirubin Direct 0.1 mg/dl (0-0.2); Calcium 8.2 mg/dl (8.5-10.1); Creatinine Clr Calc Pharmacy 24.1 ml/min; Est GFR (African American) 32.4; Est GFR (Non-African American) 27.9; Potassium 3.8 mmol/L (3.5-5.1)
[2019-02-10 06:25] LABS: Bilirubin,Total 0.3 mg/dl (0.2-1); Total Protein 5.8 gm/dl (6.4-8.2)
[2019-02-10] MEDS: SUCRALFATE 1 GM/10 ML UDC PO SCH ×4 (07:58→20:34)
[2019-02-10] MEDS: INSULIN ASPART 100 UNITS/ML 3 ML PEN SC SCH ×4 (08:00→20:34)
[2019-02-10] MEDS: FERROUS SULFATE 325 MG TAB PO SCH (09:23)
[2019-02-10] MEDS: LOSARTAN POTASSIUM 50 MG TAB PO SCH (09:23)
[2019-02-10] MEDS: ESCITALOPRAM OXALATE 10 MG TAB PO SCH (09:24)
[2019-02-10] MEDS: POTASSIUM CHLORIDE 20 MEQ TABCR PO SCH ×2 (09:24→16:55)
[2019-02-10] MEDS: CILOSTAZOL 100 MG TAB PO SCH ×2 (09:25→20:33)
[2019-02-10] MEDS: FAMOTIDINE 20 MG TAB PO SCH ×2 (09:25→20:34)
[2019-02-10] MEDS: ATORVASTATIN 10 MG TAB PO SCH (09:25)
[2019-02-10] MEDS: PANTOprazole 40 MG TAB PO SCH (09:26)
[2019-02-10] MEDS: ALLOPURINOL 100 MG TAB PO SCH (09:27)
[2019-02-10] MEDS: MAGNESIUM CHLORIDE 64MG DELAYED REL TAB PO SCH (09:27)
--- NOTE | 2019-02-10 18:35 | Hospitalist Progress Note ---
Date of Service February 10, 2019 Assessment & Plan (1) UTI (urinary tract infection): - Remains afebrile, non-toxic, and hemodynamically stable - UCx with E. coli - awaiting sensitivities for Abx downgrade - Continue Ceftriaxone 1 g IV daily pending culture Present on Admission?: Yes (2) Confusion: - Pt with mild confusion on admission but continues to appear resolved - likely secondary to metabolic encephalopathy from UTI vs mild dehydration - Treatment as above (3) Pleural effusion: - CT with R pleural effusion and thickening - no respiratory symptoms - CT Surg consulted - no immediate intervention warranted at this time and will F/U in 1 month (4) Elevated lipase: - Remains mildly elevated - no abdominal complaints and no CT evidence of pancreatitis - will repeat Lipase with AM labs but no specific etiology explains finding given lack of symptoms (5) Afib: - Paroxysmal in nature - examines in a RRR -- 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 Dsouza (6) Peptic ulcer disease: - S/P EGD - no active bleeding at present and H&H stable - Continue Protonix 40 mg daily, Carafate ACHS, and Pepcid 20 mg BID (7) Gout: - Chronic - no exacerbation - Continue Allopurinol 100 mg daily (8) Chronic anemia: - Baseline Hgb around 10; no evidence of active bleeding -- Iron 14; TIBC 222; transferrin 183; ferritin 45.9 - Continue ferrous sulfate daily (9) Depression: - Chronic/Stable - Lexapro 10 mg daily (10) BPH (benign prostatic hyperplasia): - Chronic - Continue Dutasteride (11) Diabetes mellitus: - Chronic; Controlled - A1c 6.4 - Will cover with liberal SSI if needed (12) Hyperlipidemia: - Chronic/Stable - Atorvastatin 10 mg daily (13) Hypertension: - BP stable at this time - Continue Losartan 50 mg daily, Lasix 20 mg on (14) PAD (peripheral artery disease): - Chronic/Stable - Cilostazol 100 mg BID (15) Stage III chronic kidney disease: Renal function back to baseline - can routinely monitor - Avoid nephrotoxic agents (16) DVT prophylaxis: - SCDs given recent GI bleed Disposition: Await UCx and Abx adjustments - possibly home tomorrow Subjective Patient reports feeling well today. Tolerating diet without issue. Denies urinary issues today. States today that the diarrhea/looser stool has been more of a chronic issue. Has had darker stools ongoing but some could be related to iron supplementation. Patient verbalizes no further issues today. Review of Systems Constitutional: no fever, no chills and no anorexia Respiratory: no cough and no dyspnea Cardiovascular: no chest pain, no palpitations, no lightheadedness, no edema and no calf pain Gastrointestinal: + diarrhea/loose stools; no abdominal pain, no nausea, no vomiting and no constipation Genitourinary: no dysuria Integumentary: no rash Neurologic: no generalized weakness, no tingling and no numbness Physical Exam Constitutional: well developed and well nourished; no acute distress and not ill appearing Eyes: + anicteric sclerae Neck: trachea midline Respiratory: normal respiratory effort, lungs clear to auscultation Cardiovascular: RRR, no murmur, no edema Gastrointestinal (Abdomen): Inspection/Auscultation: normal bowel sounds Percussion/Palpation: abdomen soft; abdomen nontender Musculoskeletal: Head/Neck/Chest: normocephalic and head atraumatic Skin: no rashes, warm and dry Neurologic: moves all extremities Psychiatric: A+Ox3, euthymic affect Results & Data Vital Signs (Past 12 Hours) Vital Signs Temp Pulse Resp BP BP Pulse Ox 02/10/19 15:25 36.4 C L 45 L 20 129/60 97 02/10/19 11:10 36.6 C 63 18 101/49 L 99 02/10/19 07:43 36.4 C L 60 16 123/61 98 PG Care Time/CCT Total # of Minutes Spent Total Time Spent with Patient: Total time spent is greater than 50% in coordination of care (as documented) at patient's floor/unit and/or counseling patient: (1) UTI (urinary tract infection) Hematuria presence: with hematuria Urinary tract infection type: site unspecified Qualified Code(s): N39.0 - Urinary tract infection, site not specified; R31.9 - Hematuria, unspecified (2) BPH (benign prostatic hyperplasia) Lower urinary tract symptom presence: symptoms absent Qualified Code(s): N40.0 - Benign prostatic hyperplasia without lower urinary tract symptoms (3) Diabetes mellitus Diabetes mellitus complication status: with other specified complication 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: unspecified [facility] insulin use status Diabetes mellitus type: other specified (including ISIDRA) Qualified Code(s): E13.69 - Other specified diabetes mellitus with other specified complication (4) Gout Chronicity: unspecified Gout etiology: unspecified cause Gout site: unspecified site Qualified Code(s): M10.9 - Gout, unspecified (5) Afib Atrial fibrillation type: paroxysmal Qualified Code(s): I48.0 - Paroxysmal at rial fibrillation (6) Depression Active/Remission status: in full remission Depression Type: major depressive disorder Major depression recurrence: unspecified whether recurrent Qualified Code(s): F32.5 - Major depressive disorder, single episode, in full remission (7) Hyperlipidemia Hyperlipidemia type: unspecified Qualified Code(s): E78.5 - Hyperlipidemia, unspecified (8) Hypertension Hypertension type: unspecified Qualified Code(s): I10 - Essential (primary) hypertension
[2019-02-11] MEDS: AVODART~ORDER AWAITING ACTION SCH ×4 (00:47→23:30)
[2019-02-11] MEDS: cefTRIAXone SODIUM 1,000 MG in DEXTROSE 5% 50 ML IV SCH (01:55)
[2019-02-11 05:49] LABS: Hematocrit (blood only) 28.2 % (42-52); Hemoglobin 8.8 g/dL (14.0-18.0); Mean Corpuscular Hemoglobin 27.2 pg (25-34); Mean Corpuscular Hgb Conc 31.2 g/dL (32-36); Mean Corpuscular Volume 87.3 fL (80-100); Mean Platelet Volume 11.7 fL (7.4-10.4); Platelet Count 118 K/uL (130-400); RDW Coefficient of Variation 17.4 % (11.5-14.5); RDW Standard Deviation 56.3 fL (36.4-46.3); Red Blood Count 3.23 M/uL (4.7-6.1); White Blood Count 7.21 K/uL (4.8-10.8)
[2019-02-11 06:24] LABS: Alanine Aminotransferase 18 U/L (12-78); Albumin Level 2.7 gm/dl (3.4-5.0); Alkaline Phosphatase 127 U/L (45-117); Aspartate Aminotransferase 18 U/L (15-37); Bilirubin Direct < 0.1 mg/dl (0-0.2); Bilirubin,Total 0.2 mg/dl (0.2-1); Lipase 603 U/L (73-393); Total Protein 6.3 gm/dl (6.4-8.2)
[2019-02-11] MEDS: ALLOPURINOL 100 MG TAB PO SCH (08:08)
[2019-02-11] MEDS: SUCRALFATE 1 GM/10 ML UDC PO SCH ×4 (08:08→20:35)
[2019-02-11] MEDS: FERROUS SULFATE 325 MG TAB PO SCH (08:09)
[2019-02-11] MEDS: MAGNESIUM CHLORIDE 64MG DELAYED REL TAB PO SCH (08:09)
[2019-02-11] MEDS: ATORVASTATIN 10 MG TAB PO SCH (08:09)
[2019-02-11] MEDS: FAMOTIDINE 20 MG TAB PO SCH ×2 (08:10→20:35)
[2019-02-11] MEDS: CILOSTAZOL 100 MG TAB PO SCH ×2 (08:10→20:35)
[2019-02-11] MEDS: ESCITALOPRAM OXALATE 10 MG TAB PO SCH (08:10)
[2019-02-11] MEDS: POTASSIUM CHLORIDE 20 MEQ TABCR PO SCH ×2 (08:10→16:55)
[2019-02-11] MEDS: INSULIN ASPART 100 UNITS/ML 3 ML PEN SC SCH ×4 (08:12→20:35)
[2019-02-11] MEDS: PANTOprazole 40 MG TAB PO SCH (08:12)
[2019-02-11] MEDS: LOSARTAN POTASSIUM 50 MG TAB PO SCH (08:13)
--- NOTE | 2019-02-11 08:38 | Surgery Progress Note ---
Date of Service February 11, 2019 Assessment & Plan (1) Pleural effusion: -size of right pleural effusion is small -pt. is 99% on room air -would not intervene at this time -following d/c our office will call for a 1 month f/u appt. with repeat CT scan Subjective Pt. notes no difficulty breathing. Physical Exam Constitutional: well developed and well nourished; no acute distress Respiratory: normal respiratory effort and + respiratory distress; no labored breathing only slight decrease of BS at right base Results & Data Vital Signs (Past 12 Hours) Vital Signs Temp Pulse Resp BP Pulse Ox 02/11/19 07:23 36.9 C 53 L 20 140/67 99 02/11/19 00:00 36.7 C 61 20 125/69 91 PG Care Time/CCT Total # of Minutes Spent Total Time Spent with Patient: Total time spent is greater than 50% in coordination of care (as documented) at patient's floor/unit and/or counseling patient:
[2019-02-11 13:40] LABS: Hematocrit (blood only) 27.2 % (42-52); Hemoglobin 8.8 g/dL (14.0-18.0); Mean Corpuscular Hemoglobin 27.6 pg (25-34); Mean Corpuscular Hgb Conc 32.4 g/dL (32-36); Mean Corpuscular Volume 85.3 fL (80-100); Mean Platelet Volume 11.3 fL (7.4-10.4); Platelet Count 117 K/uL (130-400); RDW Coefficient of Variation 17.4 % (11.5-14.5); RDW Standard Deviation 55.1 fL (36.4-46.3); Red Blood Count 3.19 M/uL (4.7-6.1); White Blood Count 7.02 K/uL (4.8-10.8)
[2019-02-11 14:03] LABS: Albumin Level 2.6 gm/dl (3.4-5.0); BUN Creatinine Ratio 13.7 (10-20); Calcium 8.7 mg/dl (8.5-10.1); Creatinine Clr Calc Pharmacy 21.9 ml/min; Est GFR (African American) 28.8; Est GFR (Non-African American) 24.8; Potassium 4.8 mmol/L (3.5-5.1)
[2019-02-11 14:04] LABS: Albumin Globulin Ratio 0.8 (0.9-2); Bilirubin,Total 0.2 mg/dl (0.2-1); Globulin 3.4 gm/dl (2.5-4.0)
--- NOTE | 2019-02-11 14:10 | XRay Report ---
XR KUB/Abdomen 1 view CLINICAL HISTORY: Abdominal Pain COMPARISON STUDY: 07/02/2011 FINDINGS: There is no pathologic bowel dilatation. There is evidence for aortic and right iliac arter y stenting. There are bilateral renal calcifications likely vascular. There are surgical clips in the right upper quadrant consistent with a prior cholecystectomy. Benign-appearing eggshell calcificatio ns are visualized within the pelvis. There is a stable right pelvic basin calcification likely prosta tic. There is a small right pleural effusion. IMPRESSION: 1. No evidence of pathologic bowel dilatation 2. Evidence of prior aortoiliac stent grafting 3. Small right pleural effusion Electronically signed by: Jorge Quintana M.D. 02/11/2019 2:09 PM
[2019-02-11] MEDS: SODIUM CHLORIDE 0.9% 1000ML 1,000 ML IV SCH (14:31)
--- NOTE | 2019-02-11 19:50 | Hospitalist Progress Note ---
Date of Service February 11, 2019 Assessment & Plan (1) UTI (urinary tract infection): - Remains afebrile, non-toxic, and hemodynamically stable - however appears ill today compared to previous exams only complaining of vague achiness of the lower abdomen but did have a copious loose bowel movement this evening which may be contributing to his ill feelings - No pain on deep palpation of the abdomen - UCx with E. coli - will leave IV Abx today since minimal eating and ill feelings and possible conversion to orals when feeling well - Continue Ceftriaxone 1 g IV daily at this time (2) Confusion: - Pt with mild confusion on admission but continues to appear resolved - likely secondary to metabolic encephalopathy from UTI vs mild dehydration - Treatment as above (3) Pleural effusion: - CT with R pleural effusion and thickening - no respiratory symptoms - CT Surg consulted - no immediate intervention warranted at this time and will F/U in 1 month (4) Elevated lipase: - Remains mildly elevated - no abdominal complaints that are consistent with/and no CT evidence of pancreatitis - given his renal compromise he may be slow to excrete resulting in elevated findings (5) Afib: - Paroxysmal in nature - examines in a RRR -- 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 Dsouza (6) Peptic ulcer disease: - S/P EGD - no active bleeding at present and H&H stable - Continue Protonix 40 mg daily, Carafate ACHS, and Pepcid 20 mg BID (7) Gout: - Chronic - no exacerbation - Continue Allopurinol 100 mg daily (8) Chronic anemia: - Baseline Hgb around 10; no evidence of active bleeding -- Iron 14; TIBC 222; transferrin 183; ferritin 45.9 - Continue ferrous sulfate daily (9) Depression: - Chronic/Stable - Lexapro 10 mg daily (10) BPH (benign prostatic hyperplasia): - Chronic - Continue Dutasteride -- Per son this was not returned on last admission for him and he cannot get more for a couple weeks - can refill Rx on D/C if necessary (11) Diabetes mellitus: - Chronic; Controlled - A1c 6.4 - Will cover with liberal SSI if needed (12) Hyperlipidemia: - Chronic/Stable - Atorvastatin 10 mg daily (13) Hypertension: - BP stable at this time - Continue Losartan 50 mg daily, Lasix 20 mg on (14) PAD (peripheral artery disease): - Chronic/Stable - Cilostazol 100 mg BID (15) Stage III chronic kidney disease: - Renal function slightly elevated and will gently hydrate - can routinely monitor -- Per last nephrology note his average Cr is 1.7 - Avoid nephrotoxic agents (16) DVT prophylaxis: - SCDs given recent GI bleed Disposition: Given worsening of symptoms will monitor Subjective Patient reports feeling unwell today. Cannot specifically explain symptoms but describes a vague lower abdomen ache. Not reproducible on deep palpation. Not much of an appetite this afternoon. Did have a large loose brown BM this evening which could be some explanation for his symptoms. Appears ill but non-toxic but definitely different in appearance compared to yesterday Review of Systems Constitutional: + fatigue; no fever and no chills Respiratory: no cough and no dyspnea Cardiovascular: no chest pain, no palpitations, no lightheadedness and no edema Gastrointestinal: + abdominal pain (achy - lower abdomen) and + diarrhea/loose stools; no nausea, no vomiting and no constipation Genitourinary: no dysuria Musculoskeletal: no body aches Integumentary: no rash Physical Exam Constitutional: well developed, well nourished and + ill appearing (but nontoxic); no acute distress Eyes: + anicteric sclerae Neck: trachea midline Respiratory: normal respiratory effort, lungs clear to auscultation normal respiratory effort Auscultation: lungs clear to auscultation bilaterally and + diminished lung sounds (bases b/l) Cardiovascular: RRR, no murmur, no edema Rate/Rhythm: regular rate and regular rhythm Gastrointestinal (Abdomen): Inspection/Auscultation: normal bowel sounds Percussion/Palpation: abdomen soft; abdomen nontender Musculoskeletal: Head/Neck/Chest: normocephalic and head atraumatic Skin: no rashes, warm and dry Neurologic: moves all extremities Psychiatric: A+Ox3, euthymic affect Results & Data Vital Signs (Past 12 Hours) Vital Signs Temp Pulse Resp BP Pulse Ox 02/11/19 14:41 36.2 C L 71 16 147/58 H 98 PG Care Time/CCT Total # of Minutes Spent Total Time Spent with Patient: Total time spent is greater than 50% in coordination of care (as documented) at patient's floor/unit and/or counseling patient: (1) UTI (urinary tract infection) Hematuria presence: with hematuria Urinary tract infection type: site unspecified Qualified Code(s): N39.0 - Urinary tract infection, site not specified; R31.9 - Hematuria, unspecified (2) Afib Atrial fibrillation type: paroxysmal Qualified Code(s): I48.0 - Paroxysmal atrial fibrillation (3) Gout Gout site: unspecified site Gout etiology: unspecified cause Chronicity: unspecified Qualified Code(s): M10.9 - Gout, unspecified (4) Depression Depression Type: major depressive disorder Major depression recurrence: unspecified whether recurrent Active/Remission status: in full remission Qualified Code(s): F32.5 - Major depressive disorder, single episode, in full remission (5) BPH (benign prostatic hyperplasia) Lower urinary tract symptom presence: symptoms absent Qualified Code(s): N40.0 - Benign prostatic hyperplasia without lower urinary tract symptoms (6) Diabetes mellitus Diabetes mellitus complication status: with other specified complication Diabetes mellitus prison insulin use: unspecified prison insulin use status Diabetes mellitus type: other specified (including ISIDRA) Qualified Code(s): E13.69 - Other specified diabetes mellitus with other specified complication (7) Hyperlipidemia Hyperlipidemia type: unspecified Qualified Code(s): E78.5 - Hyperlipidemia, unspecified (8) Hypertension Hypertension type: unspecified Qualified Code(s): I10 - Essential (primary) hypertension
[2019-02-12] MEDS: cefTRIAXone SODIUM 1,000 MG in DEXTROSE 5% 50 ML IV SCH (02:20)
[2019-02-12] MEDS ORDERED: Nursing to Pharmacy Communication ONE (03:56)
[2019-02-12 06:22] LABS: Hematocrit (blood only) 26.1 % (42-52); Hemoglobin 8.4 g/dL (14.0-18.0); Mean Corpuscular Hemoglobin 27.6 pg (25-34); Mean Corpuscular Hgb Conc 32.2 g/dL (32-36); Mean Corpuscular Volume 85.9 fL (80-100); RDW Coefficient of Variation 17.4 % (11.5-14.5); RDW Standard Deviation 55.3 fL (36.4-46.3); Red Blood Count 3.04 M/uL (4.7-6.1); White Blood Count 5.68 K/uL (4.8-10.8)
[2019-02-12 06:55] LABS: BUN Creatinine Ratio 13.3 (10-20); Calcium 8.3 mg/dl (8.5-10.1); Creatinine Clr Calc Pharmacy 26.6 ml/min; Est GFR (African American) 36.4; Est GFR (Non-African American) 31.4; Potassium 4.4 mmol/L (3.5-5.1)
[2019-02-12 06:58] LABS: Mean Platelet Volume 9.9 fL (7.4-10.4); Platelet Count 142 K/uL (130-400); Platelet Estimate Normal (Normal)
[2019-02-12] MEDS: SODIUM CHLORIDE 0.9% 1000ML 1,000 ML IV SCH (07:47)
[2019-02-12] MEDS: INSULIN ASPART 100 UNITS/ML 3 ML PEN SC SCH ×4 (07:59→20:42)
[2019-02-12] MEDS: SUCRALFATE 1 GM/10 ML UDC PO SCH ×4 (08:00→20:41)
[2019-02-12] MEDS: ATORVASTATIN 10 MG TAB PO SCH (08:51)
[2019-02-12] MEDS: CILOSTAZOL 100 MG TAB PO SCH ×2 (08:51→20:41)
[2019-02-12] MEDS: ESCITALOPRAM OXALATE 10 MG TAB PO SCH (08:51)
[2019-02-12] MEDS: MAGNESIUM CHLORIDE 64MG DELAYED REL TAB PO SCH (08:51)
[2019-02-12] MEDS: FERROUS SULFATE 325 MG TAB PO SCH (08:51)
[2019-02-12] MEDS: PANTOprazole 40 MG TAB PO SCH (08:51)
[2019-02-12] MEDS: POTASSIUM CHLORIDE 20 MEQ TABCR PO SCH ×2 (08:51→17:00)
[2019-02-12] MEDS: LOSARTAN POTASSIUM 50 MG TAB PO SCH (08:51)
[2019-02-12] MEDS: FUROSEMIDE 20 MG TAB PO SCH (08:51)
[2019-02-12] MEDS: FAMOTIDINE 20 MG TAB PO SCH ×2 (08:51→20:41)
[2019-02-12] MEDS: ALLOPURINOL 100 MG TAB PO SCH (08:52)
[2019-02-12] MEDS: AVODART~ORDER AWAITING ACTION SCH ×3 (09:28→23:21)
--- NOTE | 2019-02-12 14:52 | Hospitalist Progress Note ---
Date of Service February 12, 2019 Assessment & Plan (1) UTI (urinary tract infection): - Remains afebrile, non-toxic, and hemodynamically stable - however appears ill today compared to previous exams only complaining of vague achiness of the lower abdomen but did have a copious loose bowel movement this evening which may be contributing to his ill feelings - No pain on deep palpation of the abdomen - UCx with E. coli - will leave IV Abx today since minimal eating and ill feelings and possible conversion to orals when feeling well - Continue Ceftriaxone 1 g IV daily at this time (2) Confusion: - Pt with mild confusion on admission but continues to appear resolved - likely secondary to metabolic encephalopathy from UTI vs mild dehydration - Treatment as above (3) Pleural effusion: - CT with R pleural effusion and thickening - no respiratory symptoms - CT Surg consulted - no immediate intervention warranted at this time and will F/U in 1 month (4) Elevated lipase: - Remains mildly elevated - no abdominal complaints that are consistent with/and no CT evidence of pancreatitis - given his renal compromise he may be slow to excrete resulting in elevated findings (5) Afib: - Paroxysmal in nature - examines in a RRR -- 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 Dsouza (6) Peptic ulcer disease: - S/P EGD - no active bleeding at present and H&H stable - Continue Protonix 40 mg daily, Carafate ACHS, and Pepcid 20 mg BID (7) Gout: - Chronic - no exacerbation - Continue Allopurinol 100 mg daily (8) Chronic anemia: - Baseline Hgb around 10; no evidence of active bleeding -- Iron 14; TIBC 222; transferrin 183; ferritin 45.9 - Continue ferrous sulfate daily (9) Depression: - Chronic/Stable - Lexapro 10 mg daily (10) BPH (benign prostatic hyperplasia): - Chronic - Continue Dutasteride -- Per son this was not returned on last admission for him and he cannot get more for a couple weeks - can refill Rx on D/C if necessary (11) Diabetes mellitus: - Chronic; Controlled - A1c 6.4 - Will cover with liberal SSI if needed (12) Hyperlipidemia: - Chronic/Stable - Atorvastatin 10 mg daily (13) Hypertension: - BP stable at this time - Continue Losartan 50 mg daily, Lasix 20 mg on (14) PAD (peripheral artery disease): - Chronic/Stable - Cilostazol 100 mg BID (15) Stage III chronic kidney disease: - Renal function slightly elevated and will gently hydrate - can routinely monitor -- Per last nephrology note his average Cr is 1.7 - Avoid nephrotoxic agents (16) DVT prophylaxis: - SCDs given recent GI bleed Disposition: Possible discharge tomorrow pending clinical assessment Subjective Looks a lot better today compared to yesterday. Tolerating diet and no further abdominal discomfort. Did have a large liquid stool overnight which was brown and neg for c. diff Isn't sure if he feels completely his normal and will monitor Review of Systems Constitutional: no fever and no chills Respiratory: no cough and no dyspnea Cardiovascular: no chest pain Gastrointestinal: + diarrhea/loose stools; no abdominal pain, no nausea, no vomiting and no constipation Genitourinary: no dysuria Physical Exam Constitutional: well developed and well nourished; no acute distress and not ill appearing Eyes: + anicteric sclerae Neck: trachea midline Respiratory: normal respiratory effort, lungs clear to auscultation Cardiovascular: RRR, no murmur, no edema Rate/Rhythm: regular rate and regular rhythm Gastrointestinal (Abdomen): Inspection/Auscultation: normal bowel sounds Percussion/Palpation: abdomen soft; abdomen nontender Musculoskeletal: Head/Neck/Chest: normocephalic and head atraumatic Skin: no rashes, warm and dry Neurologic: moves all extremities Psychiatric: A+Ox3, euthymic affect PG Care Time/CCT Total # of Minutes Spent Total Time Spent with Patient: Total time spent is greater than 50% in coordination of care (as documented) at patient's floor/unit and/or counseling patient: (1) UTI (urinary tract infection) Hematuria presence: with hematuria Urinary tract infection type: site unspecified Qualified Code(s): N39.0 - Urinary tract infection, site not specified; R31.9 - Hematuria, unspecified (2) BPH (benign prostatic hyperplasia) Lower urinary tract symptom presence: symptoms absent Qualified Code(s): N40.0 - Benign prostatic hyperplasia without lower urinary tract symptoms (3) Diabetes mellitus Diabetes mellitus complication status: with other specified complication Diabetes mellitus mcc insulin use: unspecified continuous churn buttermaker insulin use status Diabetes mellitus type: other specified (including ISIDRA) Qualified Code(s): E13.69 - Other specified diabetes mellitus with other specified complication (4) Gout Chronicity: unspecified Gout etiology: unspecified cause Gout site: un specified site Qualified Code(s): M10.9 - Gout, unspecified (5) Afib Atrial fibrillation type: paroxysmal Qualified Code(s): I48.0 - Paroxysmal atrial fibrillation (6) Depression Active/Remission status: in full remission Depression Type: major depressive disorder Major depression recurrence: unspecified whether recurrent Qualified Code(s): F32.5 - Major depressive disorder, single episode, in full remission (7) Hyperlipidemia Hyperlipidemia type: unspecified Qualified Code(s): E78.5 - Hyperlipidemia, unspecified (8) Hypertension Hypertension type: unspecified Qualified Code(s): I10 - Essential (primary) hypertension
[2019-02-13] MEDS: cefTRIAXone SODIUM 1,000 MG in DEXTROSE 5% 50 ML IV SCH (02:31)
[2019-02-13] MEDS: SUCRALFATE 1 GM/10 ML UDC PO SCH ×4 (08:31→20:32)
[2019-02-13] MEDS: AVODART~ORDER AWAITING ACTION SCH ×3 (08:32→23:15)
[2019-02-13] MEDS: INSULIN ASPART 100 UNITS/ML 3 ML PEN SC SCH ×4 (08:33→20:33)
[2019-02-13] MEDS: FERROUS SULFATE 325 MG TAB PO SCH (08:34)
[2019-02-13] MEDS: LOSARTAN POTASSIUM 50 MG TAB PO SCH (08:34)
[2019-02-13] MEDS: ATORVASTATIN 10 MG TAB PO SCH (08:35)
[2019-02-13] MEDS: ESCITALOPRAM OXALATE 10 MG TAB PO SCH (08:35)
[2019-02-13] MEDS: POTASSIUM CHLORIDE 20 MEQ TABCR PO SCH ×2 (08:35→17:08)
[2019-02-13] MEDS: CILOSTAZOL 100 MG TAB PO SCH ×2 (08:36→20:32)
[2019-02-13] MEDS: FAMOTIDINE 20 MG TAB PO SCH ×2 (08:36→20:32)
[2019-02-13] MEDS: PANTOprazole 40 MG TAB PO SCH (08:36)
[2019-02-13] MEDS: MAGNESIUM CHLORIDE 64MG DELAYED REL TAB PO SCH (08:37)
[2019-02-13] MEDS: ALLOPURINOL 100 MG TAB PO SCH (08:37)
[2019-02-13] MEDS ORDERED: LOPERAMIDE HCL 2 MG CAP PO PRN (14:16)
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
[2019-02-13] MEDS: cephALEXin 250 MG CAP PO SCH (20:32)
[2019-02-14] MEDS: SUCRALFATE 1 GM/10 ML UDC PO SCH ×2 (08:23→13:00)
[2019-02-14] MEDS: AVODART~ORDER AWAITING ACTION SCH (08:23)
[2019-02-14] MEDS: FAMOTIDINE 20 MG TAB PO SCH (08:24)
[2019-02-14] MEDS: FERROUS SULFATE 325 MG TAB PO SCH (08:24)
[2019-02-14] MEDS: CILOSTAZOL 100 MG TAB PO SCH (08:24)
[2019-02-14] MEDS: ESCITALOPRAM OXALATE 10 MG TAB PO SCH (08:24)
[2019-02-14] MEDS: cephALEXin 250 MG CAP PO SCH (08:24)
[2019-02-14] MEDS: MAGNESIUM CHLORIDE 64MG DELAYED REL TAB PO SCH (08:24)
[2019-02-14] MEDS: POTASSIUM CHLORIDE 20 MEQ TABCR PO SCH (08:24)
[2019-02-14] MEDS: ALLOPURINOL 100 MG TAB PO SCH (08:25)
[2019-02-14] MEDS: ATORVASTATIN 10 MG TAB PO SCH (08:25)
[2019-02-14] MEDS: LOSARTAN POTASSIUM 50 MG TAB PO SCH (08:25)
[2019-02-14] MEDS: PANTOprazole 40 MG TAB PO SCH (08:25)
[2019-02-14] MEDS: INSULIN ASPART 100 UNITS/ML 3 ML PEN SC SCH ×2 (08:26→13:01)
--- NOTE | 2019-02-14 13:20 | Discharge Summary ---
Date of Service February 14, 2019 Admission HPI Per Admitting Provider Tasneem Mckeon is a pleasant 89yo C male with multiple medical problems, notably PAD/HTN/GERD/CKD-III/DM/HLP/PUD. Remote history of colon cancer s/p right colectomy. Patient was seen in the ER on 01/27 with complaint of chest discomfort. He was found to have anemia and FOBT+ stools. He had an EGD performed on 01/[address] Carter which revealed LA Grade C reflux esophagitis, many non-bleeding gastric ulcers with pigmented material and a single duodenal polyp which was resected (Pathology results show tubulovillous adenoma). He was discharged home in stable condition on 01/30/19 - started on Protonix 40mg po daily and Carafate QID. He returned to the ER on 02/05/19 with complaint of nausea and vomiting. He was acutely dehydrated with HAYLEE on CKD. He was evaluated by GI during that hospitalization and recommended to continue the Protonix, Pepcid and Carafate. He was evaluated by Cardiology after an episode of AF with RVR and was recommended Lopressor PRN, anticoagulation in the future with Eliquis. He was hydrated with improvement in his renal function. Cr on day of discharge was 1.9, down from 3.07. Patient lives alone, has family close by for assistance. He returned home yesterday. Since then he is complaining of some mild lower abdominal discomfort as well as dysuria and "not feeling right". His daughter called him last night after returning home and said that he felt tired and was a little confused. He went to sleep around 20:00. His family called him today around 1400 and he was still in bed. He did not eat anything or take his medications. He called his daughter later in the day and told her that he didn't feel good and wanted to come to the hospital. He denies fevers/chills/sweats/nausea/vomiting/diarrhea or constipation. He had a normal BM. Denies abdominal pain/CP/palpitations/cough/SOB. No additional complaints. ER Course: Ceftriaxone Principal Diagnosis E. Coli Urinary Tract Infection Discharge Exam Constitutional well developed and well nourished; no acute distress and not ill appearing Eyes + anicteric sclerae Neck trachea midline Respiratory normal respiratory effort, lungs clear to auscultation Cardiovascular RRR, no murmur, no edema Rate/Rhythm: regular rate and regular rhythm Gastrointestinal (Abdomen) Inspection/Auscultation: normal bowel sounds Percussion/Palpation: abdomen soft; abdomen nontender Musculoskeletal Head/Neck/Chest: normocephalic and head atraumatic Skin no rashes, warm and dry Neurologic moves all extremities Psychiatric A+Ox3, euthymic affect Discharge Data Allergies Allergy/AdvReac Type Severity Reaction Status Date / Time amoxicillin Allergy Severe HIVES; Verified 02/08/19 23:59 ANGIOEDEMA lisinopril Allergy Mild HIVES Verified 02/08/19 23:59 Penicillins Allergy Mild HIVES Verified 02/08/19 23:59 Consultations 02/09/19 02:05 ED Decision to Admit Stat 02/09/19 04:22 Consult EVER purchasing and fiscal clerk Routine Consult Thoracic Surgery Routine Ordered Studies 02/09/19 00:10 CT head/brain wo con Urgent 02/09/19 00:42 CT abd pelvis wo con Urgent Hospital Course (1) UTI (urinary tract infection): - Remains afebrile, non-toxic, and hemodynamically stable - UCx with E. coli - Ceftriaxone 1 g IV daily and converted to Keflex 250 mg BID for renal dosing to complete [address] findings/and prostate component (2) Confusion: - Pt with mild confusion on admission but continues to appear resolved - likely secondary to metabolic encephalopathy from UTI vs mild dehydration - Treatment as above (3) Pleural effusion: - CT with R pleural effusion and thickening - no respiratory symptoms - CT Surg consulted - no immediate intervention warranted at this time and will F/U in 1 month (4) Elevated lipase: - Remains mildly elevated - no abdominal complaints that are consistent with/and no CT evidence of pancreatitis - given his renal compromise he may be slow to excrete resulting in elevated findings (5) Afib: - Paroxysmal in nature - examines in a RRR -- 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 Dsouza (6) Peptic ulcer disease: - S/P EGD - no active bleeding at present and H&H stable - Continue Protonix 40 mg daily, Carafate ACHS, and Pepcid 20 mg BID (7) Gout: - Chronic - no exacerbation - Continue Allopurinol 100 mg daily (8) Chronic anemia: - Baseline Hgb around 10; no evidence of active bleeding -- Iron 14; TIBC 222; transferrin 183; ferritin 45.9 - Continue ferrous sulfate daily (9) Depression: - Chronic/Stable - Lexapro 10 mg daily (10) BPH (benign prostatic hyperplasia): - Chronic - Continue Dutasteride -- Per son this was not returned on last admission for him and he cannot get more for a couple weeks (11) Diabetes mellitus: - Chronic; Controlled - A1c 6.4 (12) Hyperlipidemia: - Chronic/Stable - Atorvastatin 10 mg daily (13) Hypertension: - BP stable at this time - Continue Losartan 50 mg daily, Lasix 20 mg on (14) PAD (peripheral artery disease): - Chronic/Stable - Cilostazol 100 mg BID (15) Stage III chronic kidney disease: - Renal function improved with gentle hydration -- Per last nephrology note his average Cr is 1.7 (16) DVT prophylaxis: - SCDs Disposition: Return home with home health services; outpatient F/U established Total Time Total Time Spent Total Time Spent (In Minutes): Greater than 30 minutes Discharge Plan Discharge Items Patient Disposition: Home - Home Health Services Reason For Visit: UTI, AMS Discharge Diagnosis: Urinary Tract Infection Activity: Resume your previous activity Non-emergency contact: Primary Care Provider Call non-emergency contact if: you have any medication questions, your symptoms worsen and you have a fever Follow-up/Referrals: Dallas Jacobo MD [Primary Care Provider] - 02/18/19 10:00 am (Please, follow up at [facility] [place] on SaturdayFebruary 18 at 10:00 am. *If you need to change this appointment, call the office at [phone].) Diet: Carb Consistent or DM2 Addtl Attending Provider Instructions: Urinary Tract Infection: - You have an infection in your urine which likely explains how you were feeling when you came in. - You will need to continue antibiotics to make sure this is completely taken care of. We will use Keflex 250 mg twice a day which you just need to take one dose in the evening today as you had antibiotics today in the hospital. Then on 02/15 start this twice a day until complete - You may continue to have loose stool while on antibiotics but thankfully it did not test positive for an infection called c. diff. If the diarrhea is too bothersome you can use some Imodium but just be mindful that it can cause constipation - Recommend to use your walker more consistently at home for at least a week or so as you have had a few hospital stays and you may be a little weaker then you normally are. Especially if you have diarrhea we do not want you rushing to the bathroom and having a fall. Home Medications: - Please continue your home medications as previously prescribed as we did not make adjustments to these. Pending Studies at Discharge: No Stand-Alone Forms: [facility], Smoking Cessation Medications and DC Order Prescriptions: New cephalexin 250 mg capsule 250 mg PO BID Qty: 18 RF: 0 Continued ferrous sulfate 325 mg (65 mg iron) tablet 325 mg PO DAILY Qty: 30 RF: 5 escitalopram oxalate 10 mg tablet 10 mg PO DAILY Qty: 30 RF: 2 allopurinol 100 mg tablet 100 mg PO DAILY Qty: 30 RF: 0 atorvastatin 10 mg tablet 10 mg PO DAILY Qty: 30 RF: 0 dutasteride 0.5 mg capsule 0.5 mg PO DAILY Qty: 90 RF: 0 losartan 50 mg tablet 50 mg PO DAILY RF: 0 furosemide 20 mg tablet 20 mg PO 2XWK RF: 0 ergocalciferol (vitamin D2) 50,000 unit capsule 50,000 units PO MONTHLY RF: 0 potassium chloride 20 mEq tablet extended release 20 meq PO BID Qty: 60 RF: 0 magnesium chloride 64 mg tablet,delayed release (DR/EC) 256 mg PO DAILY Qty: 120 RF: 0 cilostazol 100 mg tablet 100 mg PO BID RF: 0 famotidine 20 mg Tablet 20 mg PO BID 30 Days Qty: 60 RF: 2 sucralfate 100 mg/mL Suspension 10 ml PO ACHS 30 Days Qty: 420 RF: 0 pantoprazole 40 mg tablet,delayed release (DR/EC) 40 mg PO QAM 30 Days Qty: 30 RF: 0 Discharge Orders: Discharge Order (Routine); Ordered 02/14/19 Ordered By: Eloisa Nelson Admission Data Admit Date/Time: 02/10/19 15:38 Attending Provider: Master Hansen Admit Provider: Regla Ocampo Primary Care Provider: Dallas Jacobo Other Providers: Terrence,Han Sarabia Other Interventions: Discharge Summary Assessment (RN) Last Done: 02/14/19 10:48 DC Date/Time DO NOT enter until pt leaves facility: 02/14/19 14:19 Supervising Physician Co-Signing Physician Notes Attending note: patient seen and examined with Eloisa Nelson PA-C. I agree with her discharge summary. I personally reviewed the labs and imaging findings. patient without pain, resolved after he moved his bowels tolerating diet understands plan to treat UTI with Keflex - UTI: sensitive to cephalosporins complete a total of 14 days, Keflex 250mg BID on discharge - Abdominal pain: due to constipation, resolved now for two days
[2019-02-14] MEDS ORDERED: cephALEXin 500MG HOME PACK PO ONE (13:39)
[2019-02-14] MEDS ORDERED: cephALEXin 250 MG CAP PO SCH (13:45)
== END 2019-02-14 14:19 | disposition home health service (06) | DRG 689 ==
LOC: 4W 23:37 → ED 23:37 → SUATTDRO 02-09 03:10 → 4W 02-09 04:06